=== PATIENT | male | born 1945 | race Caucasian/White ===

== ENCOUNTER 2020-07-22 19:35 | Inpatient (IN) | payer MEDICARE ==
[~2020-07-22] VITALS: Ht 172.7 cm; Wt 90.8 kg
[2020-07-22 19:35] VITALS: BP 155/103
--- NOTE | 2020-07-22 19:35 | NUR ---
ED Nurse Note: Pt HAYLEY RAAngela from a [facility] home c/o lower back pain. Per pt, he fell on his back 3-4 days ago. Pt AAOx3, verbally responsive. No SOB, on room air. Afebrile. VSS. ERPA at bedside.
--- NOTE | 2020-07-22 20:06 | NUR ---
ED Nurse Note: Pt was taken to CT.
--- NOTE | 2020-07-22 20:15 | NUR ---
ED Nurse Note: Pt returned from CT.
--- NOTE | 2020-07-22 20:36 | Diagnostic Imaging Report ---
EXAM: CT Cervical Spine Without Intravenous Contrast CLINICAL HISTORY: TRAUMA TECHNIQUE: Axial computed tomography images of the cervical spine without intravenous contrast. CTDI is 30.4 mGy and DLP is 797.3 mGy-cm. One or more of the following dose reduction techniques were used: automated exposure control, adjustment of the mA and/or kV according to patient size, use of iterative reconstruction technique. COMPARISON: None. FINDINGS: Vertebrae: Multilevel bridging prominent osteophytosis noted anteriorly throughout the cervical spine. Normal alignment. No acute fracture. Discs/spinal canal/neural foramina: Multilevel disc degenerative disease. No spinal canal stenosis. Soft tissues: Unremarkable. IMPRESSION: 1. No acute fracture or subluxation. 2. Underlying degenerative disease of the cervical spine/DISH as described above.
--- NOTE | 2020-07-22 20:45 | NUR ---
ED Nurse Note: IV line established. Blood and urine specimen collected and sent to lab.
--- NOTE | 2020-07-22 20:54 | Diagnostic Imaging Report ---
EXAM: CT Abdomen and Pelvis Without Intravenous Contrast CLINICAL HISTORY: TRAUMA TECHNIQUE: Axial computed tomography images of the abdomen and pelvis without intravenous contrast. CTDI is 11.5 mGy and DLP is 813 mGy-cm. One or more of the following dose reduction techniques were used: automated exposure control, adjustment of the mA and/or kV according to patient size, use of iterative reconstruction technique. COMPARISON: None. FINDINGS: Lung bases: Left lower lobe and lingular atelectasis. Heart: Cardiomegaly with coronary artery calcifications. ABDOMEN: Liver: Unremarkable. Gallbladder and bile ducts: Unremarkable. No calcified stones. No ductal dilation. Pancreas: Unremarkable. No ductal dilation. Spleen: Unremarkable. No splenomegaly. Adrenals: Unremarkable. No mass. Kidneys and ureters: Diffuse fatty liver. Right perinephric stranding. The left upper renal pole cyst measuring 2.5 x 2.4 cm. Left perinephric stranding. No obstructing stones. No hydronephrosis. Stomach and bowel: Postoperative changes at the level of the sigmoid. No obstruction. No mucosal thickening. PELVIS: Appendix: Decompressed stomach with no hiatal hernia. Normal appendix. Nonspecific fecal debris within the colon. Bladder: Thickening of urinary bladder wall which may be due to incomplete distention, differential diagnosis including cystitis and partial outlet obstruction. No stones. Reproductive: Prostate enlargement. ABDOMEN and PELVIS: Intraperitoneal space: Unremarkable. No free air. No significant fluid collection. Bones/joints: Multilevel disc degenerative disease throughout the lumbar spine. Mild compression fracture of L3 vertebral body, exact age indeterminate and likely old given morphology. No dislocation. Soft tissues: Unremarkable. Vasculature: Calcified atherosclerotic disease of aorta with no aneurysm. Lymph nodes: Unremarkable. No enlarged lymph nodes. IMPRESSION: 1. Diffuse fatty liver. Left-sided renal cyst as described, remainder of abdominal viscera unremarkable. 2. No acute appendicitis or bowel obstruction.
[2020-07-22 21:00] VITALS: BP 145/92
--- NOTE | 2020-07-22 21:00 | Diagnostic Imaging Report ---
EXAM: CT Thoracic Spine Without Intravenous Contrast CLINICAL HISTORY: TRAUMA TECHNIQUE: Axial computed tomography images of the thoracic spine without intravenous contrast. CTDI is 11.5 mGy and DLP is 813 mGy-cm. One or more of the following dose reduction techniques were used: automated exposure control, adjustment of the mA and/or kV according to patient size, use of iterative reconstruction technique. COMPARISON: None. FINDINGS: Vertebrae: Wedging of T7 and T8 vertebral bodies consistent with mild compression fracture, exact age indeterminate. No distinct signs to suggest acute component. Normal alignment. Discs/spinal canal/neural foramina: Multilevel disc degenerative disease of the spine. No spinal canal stenosis. Soft tissues: Unremarkable. IMPRESSION: 1. Mild wedging of the T7 and T8 vertebral bodies suggestive of likely old compression fractures although exact age is indeterminate. Clinical correlation recommended or comparison to prior films if made available. 2. Underlying degenerative disease. No subluxation.
--- NOTE | 2020-07-22 21:03 | Diagnostic Imaging Report ---
EXAM: CT Lumbar Spine Without Intravenous Contrast CLINICAL HISTORY: TRAUMA TECHNIQUE: Axial computed tomography images of the lumbar spine without intravenous contrast. CTDI is 11.5 mGy and DLP is 813 mGy-cm. One or more of the following dose reduction techniques were used: automated exposure control, adjustment of the mA and/or kV according to patient size, use of iterative reconstruction technique. COMPARISON: None. FINDINGS: Vertebrae: There is mild wedging of L3 vertebral body consistent with compression fracture. No distinct signs of acute fracture demonstrated. Multilevel degenerative disease throughout the lumbar spine with endplate spondylosis. No pars defect. Normal alignment. Discs/spinal canal/neural foramina: No acute findings. No spinal canal stenosis. Soft tissues: Unremarkable. IMPRESSION: 1. Mild compression fracture of L3, difficult to accurately assess the age although suggested to be old given morphology. Comparison to prior films if made available recommended. Otherwise, this may be more adequately assessed with bone scan or MRI. 2. Degenerative disease with no other sites suspicious for fracture. No spondylolisthesis or pars defect.
[2020-07-22 21:12] LABS: CALCIUM 8.3 MG/DL (8.5-10.1); CREATININE 1.4 MG/DL (0.55-1.30); POTASSIUM 3.9 MMOL/L (3.5-5.1)
[2020-07-22 21:17] LABS: HEMATOCRIT 43.5 % (42.0-52.0); HEMOGLOBIN 15.5 G/DL (14.2-18.0); MEAN CORPUSCULAR VOLUME 93 FL (80-99); PLATELET COUNT 133 K/UL (150-450); RED BLOOD COUNT 4.68 M/UL (4.70-6.10); RED CELL DISTRIBUTION WIDTH 12.1 % (11.6-14.8)
[2020-07-22 21:18] LABS: INR 1.1 (0.9-1.1)
[2020-07-22 21:22] LABS: ALBUMIN 3.9 G/DL (3.4-5.0); ALBUMIN/GLOBULIN RATIO 1.2 (1.0-2.7); BILIRUBIN,TOTAL 1.1 MG/DL (0.2-1.0)
--- NOTE | 2020-07-22 21:24 | Emergency Room Report ---
History of Present Illness General Chief Complaint: Back Pain-No Injury Source: Patient, EMS Present Illness HPI 74-year-old male with no known past medical history brought in by paramedics from home due to fall and injury. Patient reported he was in the shower as he fell and also had a voided cabinet fall on hand. Patient does not make a lot of sense at this time and appears to have an underlying dementia. 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 Denies any pain at this time reports that he only has neck and lower back pain when moving around. Denies any saddle paresthesia, tingling numbness. Denies urinary or bowel incontinence. Has not taken medication for symptom relief. Patient is a poor historian. Allergies: Coded Allergies: No Known Allergies (Unverified , 07/22/20) COVID-19 Screening COVID-19 risk:Contact w/high r: No Has patient experienced morataya: No COVID-19 Testing performed PANTOGRAPH MACHINE SET UP OPERATOR: No Patient History Past Medical History: unable to obtain Past Surgical History: none Pertinent Family History: none Immunizations: UTD Reviewed Nursing Documentation: PMH: Agreed; PSxH: Agreed Nursing Documentation-PMH Past Medical History: No Stated History Review of Systems All Other Systems: negative except mentioned in HPI Physical Exam Vital Signs Date Time Temp Pulse Resp B/P (MAP) Pulse Ox O2 Delivery O2 Flow Rate FiO2 07/22/20 19:29 98.2 75 18 155/103 (120) 99 Room Air Sp02 EP Interpretation: reviewed, normal General Appearance: alert, non-toxic Head: normocephalic, atraumatic Eyes: normal eye exam, PERRL, EOMI, lids + conjunctiva normal, no hyphema, no racoon eyes ENT: normal ENT inspection, TMs + canals normal, oropharynx normal, no harris signs Neck: normal inspection, supple/symm/no masses, trach midline, no bony tend, full range of motion without pain Respiratory: effort normal, no retractions, clear to auscultation, chest symmetrical, palpation of chest normal, speaking in full sentences Cardiovascular: regular rate, rhythm, no JVD Cardiovascular #2: 2+ carotid (R), 2+ carotid (L), 2+ radial (R), 2+ radial (L), 2+ dorsalis pedis (R), 2+ dorsalis pedis (L) Gastrointestinal: normal inspection, non-tender, non-distended, no rebound/guarding, normal bowel sounds Musculoskeletal: other - Unable to assess as patient will not allow physical exam of back Neurologic: normal inspection, sensory intact Psychiatric: normal inspection, memory normal, mood normal, no suicidal/homicidal ideation Medical Decision Making PA Attestation All my diagnosis and treatment plans were reviewed ad discussed with my supervising physician Dr. Valle Diagnostic Impression: Primary Impression: Cervical strain Additional Impressions: Head contusion Compression fracture of L3 vertebra ER Course 74-year-old male with no known past medical history brought in by paramedics from home due to fall and injury. Patient reported he was in the shower as he fell and also had a voided cabinet fall on hand. Patient does not make a lot of sense at this time and appears to have an underlying dementia. 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 Denies any pain at this time reports that he only has neck and lower back pain when moving around. Denies any saddle paresthesia, tingling numbness. Denies urinary or bowel incontinence.. Has not taken medication for symptom relief. Patient is a poor historian. Ddx considered but are not limited to: cerebral hematoma, concussion, skull fracture, head contusion, cervical fracture versus sprain versus strain, lumbar sprain versus strain versus fracture Vital signs: are WNL, pt. is afebrile H&PE are most consistent with: Head contusion, cervical sprain, lumbar compression fx ORDERS: head CT no contrast, C-spine CT no contrast, L-spine and T-spine CT no contrast, CT abdomen pelvis no contrast, CBC, CMP, UA, PT and PTT Patient was evaluated in the context of the global COVID-19 pandemic, which necessitated consideration that the patient might be at risk for infection with the SARS-COV-2 virus that causes COVID-19. Institutional protocols and algorithms that pertain to the evaluation of patients at risk for COVID-19 are in a state of rapid change based on information relieved by multiple regulatory bodies including the CDC and the federal and state organizations. These policies and algorithms were followed during the patient's care in the ED. ED INTERVENTIONS: Patient did not want any pain medication at this time is reported that he does not have any pain Patient was admitted with diagnosis of spinal fracture, intractable pain to under supervision of DrMario: Leonard pt stable at time of admission CT/MRI/US Diagnostic Results CT/MRI/US Diagnostic Results #1: Imaging Test Ordered: Head CT no contrast Impression EXAM: CT Head Without Intravenous Contrast CLINICAL HISTORY: TRAUMA TECHNIQUE: Axial computed tomography images of the head/brain without intravenous contrast. CTDI is 53.4 mGy and DLP is 1152.4 mGy-cm. One or more of the following dose reduction techniques were used: automated exposure control, adjustment of the mA and/or kV according to patient size, use of iterative reconstruction technique. COMPARISON: None. FINDINGS: Brain: Mild to moderate generalized brain atrophy. Decreased attenuation within the deep white matter suggestive of microangiopathic white matter disease. No hemorrhage. Ventricles: Unremarkable. No ventriculomegaly. Bones/joints: Unremarkable. No acute fracture. Soft tissues: Unremarkable. Sinuses: Unremarkable as visualized. No acute sinusitis. Mastoid air cells: Unremarkable as visualized. No mastoid effusion. IMPRESSION: Chronic changes as described. No acute intracranial hemorrhage or space- occupying lesion. CT/MRI/US Diagnostic Results #2: Imaging Test Ordered: CT C-spine no contrast Impression COMPARISON: None. FINDINGS: Vertebrae: Multilevel bridging prominent osteophytosis noted anteriorly throughout the cervical spine. Normal alignment. No acute fracture. Discs/spinal canal/neural foramina: Multilevel disc degenerative disease. No spinal canal stenosis. Soft tissues: Unremarkable. IMPRESSION: 1. No acute fracture or subluxation. 2. Underlying degenerative disease of the cervical spine/DISH as described above. CT/MRI/US Diagnostic Results #3: Imaging Test Ordered: CT T-spine noncontrast Impression FINDINGS: Vertebrae: Wedging of T7 and T8 vertebral bodies consistent with mild compression fracture, exact age indeterminate. No distinct signs to suggest acute component. Normal alignment. Discs/spinal canal/neural foramina: Multilevel disc degenerative disease of the spine. No spinal canal stenosis. Soft tissues: Unremarkable. IMPRESSION: 1. Mild wedging of the T7 and T8 vertebral bodies suggestive of likely old compression fractures although exact age is indeterminate. Clinical correlation recommended or comparison to prior films if made available. 2. Underlying degenerative disease. No subluxation. CT/MRI/US Diagnostic Results #4: Imaging Test Ordered: CT L-spine no contrast Impression COMPARISON: None. FINDINGS: Vertebrae: There is mild wedging of L3 vertebral body consistent with compressio n fracture. No distinct signs of acute fracture demonstrated. Multilevel degenerative disease throughout the lumbar spine with endplate spondylosis. No pars defect. Normal alignment. Discs/spinal canal/neural foramina: No acute findings. No spinal canal stenosis. Soft tissues: Unremarkable. IMPRESSION: 1. Mild compression fracture of L3, difficult to accurately assess the age alth ough suggested to be old given morphology. Comparison to prior films if made available recommended. Otherwise, this may be more adequately assessed with bone scan or MRI. 2. Degenerative disease with no other sites suspicious for fracture. No spondylolisthesis or pars defect. CT/MRI/US Diagnostic Results #5: Imaging Test Ordered: CT abdomen pelvis noncontrast Impression FINDINGS: Lung bases: Left lower lobe and lingular atelectasis. Heart: Cardiomegaly with coronary artery calcifications. ABDOMEN: Liver: Unremarkable. Gallbladder and bile ducts: Unremarkable. No calcified stones. No ductal dilation. Pancreas: Unremarkable. No ductal dilation. Spleen: Unremarkable. No splenomegaly. Adrenals: Unremarkable. No mass. Kidneys and ureters: Diffuse fatty liver. Right perinephric stranding. The left upper renal pole cyst measuring 2.5 x 2.4 cm. Left perinephric stranding. No obstructing stones. No hydronephrosis. Stomach and bowel: Postoperative changes at the level of the sigmoid. No obstruction. No mucosal thickening. PELVIS: Appendix: Decompressed stomach with no hiatal hernia. Normal appendix. Nonspecific fecal debris within the colon. Bladder: Thickening of urinary bladder wall which may be due to incomplete di stention, differential diagnosis including cystitis and partial outlet obstruction. No stones. Reproductive: Prostate enlargement. ABDOMEN and PELVIS: Intraperitoneal space: Unremarkable. No free air. No significant fluid collection. Bones/joints: Multilevel disc degenerative disease throughout the lumbar spine. Mild compression fracture of L3 vertebral body, exact age indeterminate and likely old given morphology. No dislocation. Soft tissues: Unremarkable. Vasculature: Calcified atherosclerotic disease of aorta with no aneurysm. Lymph nodes: Unremarkable. No enlarged lymph nodes. IMPRESSION: 1. Diffuse fatty liver. Left-sided renal cyst as described, remainder of abdominal viscera unremarkable. 2. No acute appendicitis or bowel obstruction. Last Vital Signs Date Time Temp Pulse Resp B/P (MAP) Pulse Ox O2 Delivery O2 Flow Rate FiO2 07/22/20 19:35 98.2 75 18 155/103 99 Room Air Reji Montague Jul 22, 2020 21:24
--- NOTE | 2020-07-22 21:34 | Diagnostic Imaging Report ---
EXAM: CT Head Without Intravenous Contrast CLINICAL HISTORY: TRAUMA TECHNIQUE: Axial computed tomography images of the head/brain without intravenous contrast. CTDI is 53.4 mGy and DLP is 1152.4 mGy-cm. One or more of the following dose reduction techniques were used: automated exposure control, adjustment of the mA and/or kV according to patient size, use of iterative reconstruction technique. COMPARISON: None. FINDINGS: Brain: Mild to moderate generalized brain atrophy. Decreased attenuation within the deep white matter suggestive of microangiopathic white matter disease. No hemorrhage. Ventricles: Unremarkable. No ventriculomegaly. Bones/joints: Unremarkable. No acute fracture. Soft tissues: Unremarkable. Sinuses: Unremarkable as visualized. No acute sinusitis. Mastoid air cells: Unremarkable as visualized. No mastoid effusion. IMPRESSION: Chronic changes as described. No acute intracranial hemorrhage or space-occupying lesion.
[2020-07-22 21:37] LABS: BILIRUBIN,DIRECT 0.3 MG/DL (0.0-0.3)
[2020-07-22 22:18] LABS: APPEARANCE,URINE CLOUDY; BILIRUBIN, URINE NEGATIVE (NEGATIVE); COLOR,URINE PALE YELLOW; GLUCOSE, URINE (UA) NEGATIVE (NEGATIVE); KETONES,URINE 2+ (NEGATIVE); LEUKOCYTE ESTERASE ,URINE 2+ (NEGATIVE); NITRITE,URINE NEGATIVE (NEGATIVE); PH,URINE 8 (4.5-8.0); PROTEIN,URINE 2+ (NEGATIVE); UROBILINOGEN,URINE NORMAL MG/DL (0.0-1.0)
[2020-07-22] MEDS ORDERED: Miralax 17gm pkt ORAL PRN (22:45)
--- NOTE | 2020-07-22 22:46 | NUR ---
ED Nurse Note: Report given to Sree GREENWOOD.
[2020-07-22 22:53] VITALS: BP 147/88
--- NOTE | 2020-07-22 22:54 | NUR ---
TRANSFER TO FLOOR: Patient transferred to Med surg. Report given to Sree GREENWOOD. Pt AAOx3, verbally responsive but is forgetful. No SOB, on room air. IV line on left AC 20g patent and intact. Pt is not taking any meds at home. Skin is intact. All belongings sent with the patient.
--- NOTE | 2020-07-22 23:10 | NUR ---
NURSE NOTES: Patient admitted to the floor aaox2; talkative; forgetful and confused. Ambulatory but with steady gait. Oriented to new room and unit, call light provided and educated how to use it; patient needs reinforcement naturalization examiner light and falls precautions. Urinal provided for patient and educated also on how to use it. [employer] and Charge Nurse made aware of high fall risk status of patient. Per patient, he does not take any home medication and that he does no have any past medical history. Admission orders from Dr. Byrne noted and will carry out. Addendum: 07/23/20 at 0028 by CHRISTINE BOURNE RN RN unable to verify home medications and past medical history. Called [facility] at [phone], no answer. No next of kin provided in the face sheet also. Addendum: 07/23/20 at 0330 by CHRISTINE BOURNE RN RN Ambulatory with UNSTEADY gait*
[2020-07-22 23:30] VITALS: BP 149/81
[2020-07-23 04:00] VITALS: BP 148/77
--- NOTE | 2020-07-23 06:24 | NUR ---
NURSE NOTES: Patient refused to have blood drawn at this time. Will re-attempt at a later time.
--- NOTE | 2020-07-23 07:32 | NUR ---
NURSE HAND-OFF: Important Events on Shift:[new admit; high fall risk] Patient Status: [sleeping] Diet: [Regular] Pending Orders: [] Pending Results/Labs:[] Pending MD notification:[] Latest Vital Signs: Temperature 99.0 , Pulse 66 , B/P 148 /77 , Respiratory Rate 20 , O2 SAT 98 , Room Air, O2 Flow Rate . Vital Sign Comment: [] Latest Robertson Fall Score: 85 Fall Risk: High Risk Safety Measures: Call light Within Reach, Bed Alarm Zone 2, Side Rails Side Rails x3, Bed position Low and Locked. Fall Precautions: Yellow Socks Yellow Gown Door Sign Patient Fall Education Report given to [Lakshmi Bhardwaj RN].
--- NOTE | 2020-07-23 07:37 | NUR ---
NURSE NOTES: Report received from KRYSTYNA Balbuena. Patient awake in bed, alert and oriented x 2, no SOB, bed in lowest position with breaks engaged and alarm on, denies any pain at this time, on room air, IV line intact on left AC, will continue to monitor and proceed with plan of care, call light within reach.
[2020-07-23 08:00] VITALS: BP 139/83
[2020-07-23] MEDS: Heparin 5000 units/ml inj SUBQ SCH ×2 (08:36→20:42)
[2020-07-23 08:57] LABS: HEMATOCRIT 44.4 % (42.0-52.0); HEMOGLOBIN 15.2 G/DL (14.2-18.0); MEAN CORPUSCULAR VOLUME 95 FL (80-99); PLATELET COUNT 136 K/UL (150-450); RED CELL DISTRIBUTION WIDTH 12.4 % (11.6-14.8); WHITE BLOOD COUNT 5.9 K/UL (4.8-10.8)
--- NOTE | 2020-07-23 09:05 | NUR ---
PT EVALUATION NOTE Patient seen for initial evaluation. Patient presents with generalized weakness and impaired balance which affects patient's ability to perform mobility tasks safely. Patient required min/mod assist for bed mobility. Patient able to stand with a FWW with min assist, and to take several small sideways steps with the FWW. Patient unstable in standing and is at high risk for falls. Patient will benefit from skilled inpatient PT intervention to increase strength and postural stability for improved level of functional mobility and safety. Recommend discharge to SNF for continued rehab as patient lives alone and is a fall risk. Recommend FWW for transfers and ambulation. Addendum: 07/23/20 at 1256 by BETTYE QUEVEDO PT Amended: Links added.
[2020-07-23 09:29] LABS: ALBUMIN 3.8 G/DL (3.4-5.0); ALBUMIN/GLOBULIN RATIO 0.9 (1.0-2.7); BILIRUBIN,TOTAL 1.1 MG/DL (0.2-1.0); CALCIUM 8.5 MG/DL (8.5-10.1); CREATININE 1.4 MG/DL (0.55-1.30); POTASSIUM 3.8 MMOL/L (3.5-5.1)
[2020-07-23 09:31] LABS: BILIRUBIN,DIRECT 0.3 MG/DL (0.0-0.3)
[2020-07-23] MEDS: LORazepam Inj 2mg/ml 1ml IV PRN ×2 (10:46→23:01)
--- NOTE | 2020-07-23 10:50 | NUR ---
DOCTOR OF PHARMACY NOTE SW attempted to meet w/ pt for home safety evaluation. Pt presents as A&O 2x, and forgetful. Pt is from [facility] [address], [place] [address]. Pt does not have any children. PT reports having estranged siblings that he does not have their contact information. PT was unable to provide detailed hx of fall incident, his independency with ADLs and IADLs. It is unclear if it is due to hearing or memory impairment. SW needed to redirect pt frequently. Pt made random statement during assessment, stating "I need to give thousand dollars to my girlfriend or my brother or sister" and "I want to have dogs" Pt reports being ambulatory w/o DMEs. Recommending PT to evaluate pt's mobility. Per charge nurse, pt's neighbor, Lizeth Gonzales [phone] called to share her concern. SW left a vm to Lizeth for call back.
[2020-07-23 12:00] VITALS: BP 129/88
--- NOTE | 2020-07-23 12:14 | NUR ---
CHIEF SCHOOL FINANCE OFFICER NOTE SW spoke w/ pt's neighbors, Lizeth and Jim #[phone] that Lizeth filed APS report for self-neglect. Per Lizeth, the assigned APS SW is [place] [phone]. Lizeth states pt does not receive meal service from the [facility]. Jmi has not seen pt for 3 months, where they share a kitchen. Lizeth witnessed pt's room was in unhealthy condition and had no food in the refrigerator. Possible SNF placement if he needs skilled needs, otherwise pt may need service arrangement prior to returning home. YASMINE will discuss w/ the team.
[2020-07-23] MEDS ORDERED: Morphine Sulfate 2mg/ml Inj(IV/IM USE ONLY) IVP PRN (14:00)
--- NOTE | 2020-07-23 14:03 | Consultation ---
History of Present Illness General Date patient seen: Jul 23, 2020 Chief Complaint: Back Pain-No Injury Present Illness HPI 74-year-old male with no known past medical history brought in by paramedics from home due to fall and injury. Patient reports that he has a social worker aide at home. Denies any pain at this time reports that he only has neck and lower back pain when moving around. Denies urinary or bowel incontinence. Pt seems to be confused and not able to take care of himself. Allergies: Coded Allergies: No Known Allergies (Unverified , 07/22/20) Medication History No Active Prescriptions or Reported Meds Patient History Healthcare decision maker Resuscitation status Advanced Directive on File Past Medical/Surgical History Past Medical/Surgical History: (1) No significant past medical history Review of Systems All Other Systems: negative except mentioned in HPI Physical Exam General Appearance: WD/WN, no apparent distress, lethargic Lines, tubes and drains: peripheral HEENT: normocephalic, atraumatic, mucous membranes moist Neck: non-tender, normal alignment, supple, abnormal alignment Respiratory/Chest: chest wall non-tender, lungs clear, no respiratory distress Cardiovascular/Chest: normal peripheral pulses, normal rate, regular rhythm Abdomen: normal bowel sounds Last 24 Hour Vital Signs Date Time Temp Pulse Resp B/P (MAP) Pulse Ox O2 Delivery O2 Flow Rate FiO2 07/23/20 12:00 98.6 66 18 129/88 (102) 98 07/23/20 11:16 77 18 115/71 95 07/23/20 10:46 77 18 115/71 95 07/23/20 09:00 Room Air 07/23/20 08:00 98.0 73 19 139/83 (101) 96 07/23/20 04:00 99.0 66 20 148/77 (100) 98 07/22/20 23:39 Room Air 07/22/20 23:30 99.1 64 18 149/81 (103) 96 07/22/20 22:54 98.2 73 16 147/88 97 Room Air 07/22/20 22:53 98.2 73 16 147/88 97 Room Air 07/22/20 21:00 98.2 78 16 145/92 95 Room Air 07/22/20 19:35 98.2 75 18 155/103 99 Room Air 07/22/20 19:29 98.2 75 18 155/103 (120) 99 Room Air Intake and Output 07/22/20 07/23/20 19:00 07:00 Intake Total 100 ml Balance 100 ml Intake Oral 100 ml # Voids 3 Laboratory Tests Test 07/22/20 20:45 07/23/20 08:15 White Blood Count 6.0 K/UL (4.8-10.8) 5.9 K/UL (4.8-10.8) Red Blood Count 4.68 M/UL (4.70-6.10) L 4.70 M/UL (4.70-6.10) Hemoglobin 15.5 G/DL (14.2-18.0) 15.2 G/DL (14.2-18.0) Hematocrit 43.5 % (42.0-52.0) 44.4 % (42.0-52.0) Mean Corpuscular Volume 93 FL (80-99) 95 FL (80-99) Mean Corpuscular Hemoglobin 33.1 PG (27.0-31.0) H 32.3 PG (27.0-31.0) H Mean Corpuscular Hemoglobin Concent 35.7 G/DL (32.0-36.0) 34.1 G/DL (32.0-36.0) Red Cell Distribution Width 12.1 % (11.6-14.8) 12.4 % (11.6-14.8) Platelet Count 133 K/UL (150-450) L 136 K/UL (150-450) L Mean Platelet Volume 8.7 FL (6.5-10.1) 7.9 FL (6.5-10.1) Neutrophils (%) (Auto) % (45.0-75.0) % (45.0-75.0) Lymphocytes (%) (Auto) % (20.0-45.0) % (20.0-45.0) Monocytes (%) (Auto) % (1.0-10.0) % (1.0-10.0) Eosinophils (%) (Auto) % (0.0-3.0) % (0.0-3.0) Basophils (%) (Auto) % (0.0-2.0) % (0.0-2.0) Differential Total Cells Counted 100 100 Neutrophils % (Manual) 64 % (45-75) 66 % (45-75) Lymphocytes % (Manual) 12 % (20-45) L 18 % (20-45) L Monocytes % (Manual) 19 % (1-10) H 13 % (1-10) H Eosinophils % (Manual) 1 % (0-3) 3 % (0-3) Basophils % (Manual) 0 % (0-2) 0 % (0-2) Band Neutrophils 4 % (0-8) 0 % (0-8) Platelet Estimate Decreased L Decreased L Platelet Morphology Normal Normal Red Blood Cell Morphology Normal Normal Prothrombin Time 12.0 SEC (9.30-11.50) H Prothromb Time International Ratio 1.1 (0.9-1.1) Activated Partial Thromboplast Time 32 SEC (23-33) Urine Color Pale yellow Urine Appearance Cloudy Urine pH 8 (4.5-8.0) Urine Specific [place] 1.010 (1.005-1.035) Urine Protein 2+ (NEGATIVE) H Urine Glucose (UA) Negative (NEGATIVE) Urine Ketones 2+ (NEGATIVE) H Urine Blood 2+ (NEGATIVE) H Urine Nitrite Negative (NEGATIVE) Urine Bilirubin Negative (NEGATIVE) Urine Urobilinogen Normal MG/DL (0.0-1.0) Urine Leukocyte Esterase 2+ (NEGATIVE) H Urine RBC 0-2 /HPF (0 - 0) H Urine WBC Tntc /HPF (0 - 0) H Urine Squamous Epithelial Cells None /LPF (NONE/OCC) Urine Bacteria Occasional /HPF (NONE) Sodium Level 135 MMOL/L (136-145) L 135 MMOL/L (136-145) L Potassium Level 3.9 MMOL/L (3.5-5.1) 3.8 MMOL/L (3.5-5.1) Chloride Level 101 MMOL/L (98-107) 102 MMOL/L (98-107) Carbon Dioxide Level 26 MMOL/L (21-32) 24 MMOL/L (21-32) Anion Gap 8 mmol/L (5-15) 9 mmol/L (5-15) Blood Urea Nitrogen 10 mg/dL (7-18) 12 mg/dL (7-18) Creatinine 1.4 MG/DL (0.55-1.30) H 1.4 MG/DL (0.55-1.30) H Estimat Glomerular Filtration Rate 49.7 mL/min (>60) 49.7 mL/min (>60) Glucose Level 116 MG/DL (74-106) H 103 MG/DL (74-106) Calcium Level 8.3 MG/DL (8.5-10.1) L 8.5 MG/DL (8.5-10.1) Total Bilirubin 1.1 MG/DL (0.2-1.0) H 1.1 MG/DL (0.2-1.0) H Direct Bilirubin 0.3 MG/DL (0.0-0.3) 0.3 MG/DL (0.0-0.3) Aspartate Amino Transf (AST/SGOT) 32 U/L (15-37) 30 U/L (15-37) Alanine Aminotransferase (ALT/SGPT) 15 U/L (12-78) 22 U/L (12-78) Alkaline Phosphatase 66 U/L (46-116) 65 U/L (46-116) Total Protein 7.1 G/DL (6.4-8.2) 7.8 G/DL (6.4-8.2) Albumin 3.9 G/DL (3.4-5.0) 3.8 G/DL (3.4-5.0) Globulin 3.2 g/dL 4.0 g/dL Albumin/Globulin Ratio 1.2 (1.0-2.7) 0.9 (1.0-2.7) L Thyroid Stimulating Hormone (TSH) 1.486 uiU/mL (0.358-3.740) Height (Feet): 5 Height (Inches): 8.00 Weight (Pounds): 210 Medications Current Medications Medications (Trade) Dose Ordered Sig/Fabrizio Route PRN Reason Start Time Stop Time Status Last Admin Dose Admin Acetaminophen (Tylenol) 650 mg Q4H PRN ORAL fever 07/22/20 22:45 08/21/20 22:44 Dextrose (Dextrose 50%) 25 ml Q30M PRN IV Hypoglycemia 07/22/20 22:45 10/20/20 22:44 Dextrose (Dextrose 50%) 50 ml Q30M PRN IV Hypoglycemia 07/22/20 22:45 10/20/20 22:44 Heparin Sodium (Porcine) (Heparin 5000 units/ml) 5,000 units EVERY 12 HOURS SUBQ 07/23/20 09:00 09/06/20 08:59 Lorazepam (Ativan 2mg/ml 1ml) 1 mg Q4H PRN IV For Anxiety 07/23/20 10:45 07/30/20 10:44 07/23/20 10:46 Ondansetron HCl (Zofran) 4 mg Q6H PRN IVP Nausea & Vomiting 07/22/20 22:45 08/21/20 22:44 Polyethylene Glycol (Miralax) 17 gm HSPRN PRN ORAL Constipation 07/22/20 22:45 08/21/20 22:44 Zolpidem Tartrate (Ambien) 5 mg HSPRN PRN ORAL Insomnia 07/22/20 22:45 07/29/20 22:44 Assessment/Plan Problem List: (1) Compression fracture of L3 vertebra ICD Codes: S32.030A - Wedge compression fracture of third lumbar vertebra, initial encounter for closed fracture SNOMED: 338863147 (2) Intractable pain ICD Codes: R52 - Pain, unspecified SNOMED: 95378787 (3) Social isolation ICD Codes: Z60.4 - Social exclusion and rejection SNOMED: 100563643 (4) Impaired mobility and ADLs ICD Codes: Z74.09 - Other reduced mobility; Z78.9 - Other specified health status SNOMED: 98646953, 484287406, 623005282 (5) No significant past medical history SNOMED: 095845458 Assessment/Plan: symptomatic treatment Pain management pt/ot social service consult dvt prophylaxis. Jaclyn Byrne MD Jul 23, 2020 14:03
--- NOTE | 2020-07-23 14:09 | NUR ---
FORM BUILDER NOTE SW received a consult to locate family. SW spoke w/ pt's neighbors Mervin earlier that pt does not have any family members. YASMINE attempted to call [employer] [phone]. The call was not answered and left a vm for call back.
[2020-07-23 14:29] LABS: CREATINE KINASE 366 U/L (26-308)
--- NOTE | 2020-07-23 14:49 | Consultation ---
History of Present Illness General Date patient seen: Jul 23, 2020 Chief Complaint: Back Pain-No Injury Present Illness HPI 74 y/o M with hx no known past medical hx presented to ED on 07/22/20 after a fall at home in the shower. has neck and lower back pain when moving. Denied urinary or bowel incontinence, numbness/tingling Allergies: Coded Allergies: No Known Allergies (Unverified , 07/22/20) Medication History No Active Prescriptions or Reported Meds Patient History Healthcare decision maker Resuscitation status Advanced Directive on File Patient History Narrative Pmhx: as above Shx: reviewed Fhx: non contributory Review of Systems All Other Systems: negative except mentioned in HPI Physical Exam Physical Exam Narrative General Appearance: alert, non-toxic Head: normocephalic, atraumatic Eyes: normal eye exam, PERRL, EOMI, lids + conjunctiva normal, no hyphema, no racoon eyes ENT: normal ENT inspection, TMs + canals normal, oropharynx normal, no harris signs Neck: normal inspection, supple/symm/no masses, trach midline, no bony tend, full range of motion without pain Respiratory: effort normal, no retractions, clear to auscultation, chest symmetrical, palpation of chest normal, speaking in full sentences Cardiovascular: regular rate, rhythm, no JVD Gastrointestinal: normal inspection, non-tender, non-distended, no rebound/guarding, normal bowel sounds Last 24 Hour Vital Signs Date Time Temp Pulse Resp B/P (MAP) Pulse Ox O2 Delivery O2 Flow Rate FiO2 07/23/20 12:00 98.6 66 18 129/88 (102) 98 07/23/20 11:16 77 18 115/71 95 07/23/20 10:46 77 18 115/71 95 07/23/20 09:00 Room Air 07/23/20 08:00 98.0 73 19 139/83 (101) 96 07/23/20 04:00 99.0 66 20 148/77 (100) 98 07/22/20 23:39 Room Air 07/22/20 23:30 99.1 64 18 149/81 (103) 96 07/22/20 22:54 98.2 73 16 147/88 97 Room Air 07/22/20 22:53 98.2 73 16 147/88 97 Room Air 10/22/20 21:00 98.2 78 16 145/92 95 Room Air 07/22/20 19:35 98.2 75 18 155/103 99 Room Air 07/22/20 19:29 98.2 75 18 155/103 (120) 99 Room Air Intake and Output 07/22/20 07/23/20 19:00 07:00 Intake Total 100 ml Balance 100 ml Intake Oral 100 ml # Voids 3 Laboratory Tests Test 07/22/20 20:45 07/23/20 08:15 White Blood Count 6.0 K/UL (4.8-10.8) 5.9 K/UL (4.8-10.8) Red Blood Count 4.68 M/UL (4.70-6.10) L 4.70 M/UL (4.70-6.10) Hemoglobin 15.5 G/DL (14.2-18.0) 15.2 G/DL (14.2-18.0) Hematocrit 43.5 % (42.0-52.0) 44.4 % (42.0-52.0) Mean Corpuscular Volume 93 FL (80-99) 95 FL (80-99) Mean Corpuscular Hemoglobin 33.1 PG (27.0-31.0) H 32.3 PG (27.0-31.0) H Mean Corpuscular Hemoglobin Concent 35.7 G/DL (32.0-36.0) 34.1 G/DL (32.0-36.0) Red Cell Distribution Width 12.1 % (11.6-14.8) 12.4 % (11.6-14.8) Platelet Count 133 K/UL (150-450) L 136 K/UL (150-450) L Mean Platelet Volume 8.7 FL (6.5-10.1) 7.9 FL (6.5-10.1) Neutrophils (%) (Auto) % (45.0-75.0) % (45.0-75.0) Lymphocytes (%) (Auto) % (20.0-45.0) % (20.0-45.0) Monocytes (%) (Auto) % (1.0-10.0) % (1.0-10.0) Eosinophils (%) (Auto) % (0.0-3.0) % (0.0-3.0) Basophils (%) (Auto) % (0.0-2.0) % (0.0-2.0) Differential Total Cells Counted 100 100 Neutrophils % (Manual) 64 % (45-75) 66 % (45-75) Lymphocytes % (Manual) 12 % (20-45) L 18 % (20-45) L Monocytes % (Manual) 19 % (1-10) H 13 % (1-10) H Eosinophils % (Manual) 1 % (0-3) 3 % (0-3) Basophils % (Manual) 0 % (0-2) 0 % (0-2) Band Neutrophils 4 % (0-8) 0 % (0-8) Platelet Estimate Decreased L Decreased L Platelet Morphology Normal Normal Red Blood Cell Morphology Normal Normal Prothrombin Time 12.0 SEC (9.30-11.50) H Prothromb Time International Ratio 1.1 (0.9-1.1) Activated Partial Thromboplast Time 32 SEC (23-33) Urine Color Pale yellow Urine Appearance Cloudy Urine pH 8 (4.5-8.0) Urine Specific [place] 1.010 (1.005-1.035) Urine Protein 2+ (NEGATIVE) H Urine Glucose (UA) Negative (NEGATIVE) Urine Ketones 2+ (NEGATIVE) H Urine Blood 2+ (NEGATIVE) H Urine Nitrite Negative (NEGATIVE) Urine Bilirubin Negative (NEGATIVE) Urine Urobilinogen Normal MG/DL (0.0-1.0) Urine Leukocyte Esterase 2+ (NEGATIVE) H Urine RBC 0-2 /HPF (0 - 0) H Urine WBC Tntc /HPF (0 - 0) H Urine Squamous Epithelial Cells None /LPF (NONE/OCC) Urine Bacteria Occasional /HPF (NONE) Sodium Level 135 MMOL/L (136-145) L 135 MMOL/L (136-145) L Potassium Level 3.9 MMOL/L (3.5-5.1) 3.8 MMOL/L (3.5-5.1) Chloride Level 101 MMOL/L (98-107) 102 MMOL/L (98-107) Carbon Dioxide Level 26 MMOL/L (21-32) 24 MMOL/L (21-32) Anion Gap 8 mmol/L (5-15) 9 mmol/L (5-15) Blood Urea Nitrogen 10 mg/dL (7-18) 12 mg/dL (7-18) Creatinine 1.4 MG/DL (0.55-1.30) H 1.4 MG/DL (0.55-1.30) H Estimat Glomerular Filtration Rate 49.7 mL/min (>60) 49.7 mL/min (>60) Glucose Level 116 MG/DL (74-106) H 103 MG/DL (74-106) Calcium Level 8.3 MG/DL (8.5-10.1) L 8.5 MG/DL (8.5-10.1) Total Bilirubin 1.1 MG/DL (0.2-1.0) H 1.1 MG/DL (0.2-1.0) H Direct Bilirubin 0.3 MG/DL (0.0-0.3) 0.3 MG/DL (0.0-0.3) Aspartate Amino Transf (AST/SGOT) 32 U/L (15-37) 30 U/L (15-37) Alanine Aminotransferase (ALT/SGPT) 15 U/L (12-78) 22 U/L (12-78) Alkaline Phosphatase 66 U/L (46-116) 65 U/L (46-116) Total Protein 7.1 G/DL (6.4-8.2) 7.8 G/DL (6.4-8.2) Albumin 3.9 G/DL (3.4-5.0) 3.8 G/DL (3.4-5.0) Globulin 3.2 g/dL 4.0 g/dL Albumin/Globulin Ratio 1.2 (1.0-2.7) 0.9 (1.0-2.7) L Uric Acid 6.2 MG/DL (2.6-7.2) Total Creatine Kinase 366 U/L (26-308) H Thyroid Stimulating Hormone (TSH) 1.486 uiU/mL (0.358-3.740) Height (Feet): 5 Height (Inches): 8.00 Weight (Pounds): 210 Medications Current Medications Medications (Trade) Dose Ordered Sig/Fabrizio Route PRN Reason Start Time Stop Time Status Last Admin Dose Admin Acetaminophen (Tylenol) 650 mg Q4H PRN ORAL fever 07/22/20 22:45 08/21/20 22:44 Ceftriaxone Sodium 1 gm/ Dextrose 55 ml @ 110 mls/hr Q24H IVPB 07/23/20 15:00 07/30/20 14:59 Dextrose (Dextrose 50%) 25 ml Q30M PRN IV Hypoglycemia 07/22/20 22:45 10/20/20 22:44 Dextrose (Dextrose 50%) 50 ml Q30M PRN IV Hypoglycemia 07/22/20 22:45 10/20/20 22:44 Heparin Sodium (Porcine) (Heparin 5000 units/ml) 5,000 units EVERY 12 HOURS SUBQ 07/23/20 09:00 09/06/20 08:59 Lorazepam (Ativan 2mg/ml 1ml) 1 mg Q4H PRN IV For Anxiety 07/23/20 10:45 07/30/20 10:44 07/23/20 10:46 Morphine Sulfate (Morphine Sulfate) 2 mg Q4H PRN IVP For Pain 07/23/20 14:00 07/30/20 13:59 Ondansetron HCl (Zofran) 4 mg Q6H PRN IVP Nausea & Vomiting 07/22/20 22:45 08/21/20 22:44 Polyethylene Glycol (Miralax) 17 gm HSPRN PRN ORAL Constipation 07/22/20 22:45 08/21/20 22:44 Zolpidem Tartrate (Ambien) 5 mg HSPRN PRN ORAL Insomnia 07/22/20 22:45 07/29/20 22:44 Assessment/Plan Assessment/Plan: Abx: Ceftriaxone 07/23- Assessment: Probable UTI -u/a wbc tntc, nit neg, leuk +2; ucx p Afebrile No leukocytosis SP mechanical fall Old compression fractures on imaging -CT head: no acute findings Plan: -Continue empiric Ceftriaxone #1 for now pending ucx -f/u cx -Monitor CBC/CMP, temperatures Thank you for consulting [facility]. Will continue to follow along with you. Discussed with Lindy Steiner M.D. Jul 23, 2020 14:49
--- NOTE | 2020-07-23 15:52 | NUR ---
CASE MANAGEMENT: INITIAL REVIEW 74 YO M BIBA FROM HOME CC: BACK PAIN PMHx: No Stated History SI:INTRACTABLE PAIN. SPINAL FX VS: T 98.2 HR 75 RR 18 B/P 155/103 SATS 99% ON RA LABS: NA 135 CR 1.4 GLU 116 CA 8.3 TBILI 1.1 IS: CEFTRIAXONE IV Q24H PATIENT ADMITTED TO MED/SURG 07/22/2020 @ 2205 DCP: HOME PLAN OF CARE: symptomatic treatment Pain management pt/ot social service consult
[2020-07-23 16:00] VITALS: BP 139/81
[2020-07-23] MEDS: cefTRIAXone 1 GM in D5W 55 ML IVPB SCH (16:00)
--- NOTE | 2020-07-23 17:19 | Diagnostic Imaging Report ---
Indication: Elevated creatinine Technique: US Renal Comp Comparison: None Findings: Kidneys demonstrate normal echogenicity. No hydronephrosis or sonographically appreciable renal stone. Approximately 2.2 cm cyst noted in the left kidney. Bladder unremarkable for degree of distention. Prostate is enlarged. Impression: * No hydronephrosis or sonographically appreciable renal stone * Renal echogenicity within normal limits * Prostatomegaly
--- NOTE | 2020-07-23 18:05 | History & Physical ---
History and Physical History & Physicial job # [id number] Andrés Rothman MD Jul 23, 2020 18:05
[2020-07-23 18:57] LABS: APPEARANCE,URINE CLEAR; BILIRUBIN, URINE NEGATIVE (NEGATIVE); GLUCOSE, URINE (UA) NEGATIVE (NEGATIVE); KETONES,URINE 3+ (NEGATIVE); LEUKOCYTE ESTERASE ,URINE 1+ (NEGATIVE); NITRITE,URINE NEGATIVE (NEGATIVE); PH,URINE 6 (4.5-8.0); PROTEIN,URINE 2+ (NEGATIVE); UROBILINOGEN,URINE NORMAL MG/DL (0.0-1.0)
[2020-07-23 19:06] LABS: COLOR,URINE YELLOW
--- NOTE | 2020-07-23 19:31 | NUR ---
NURSE HAND-OFF: Important Events on Shift:[IV ATB, fall risk precautions, urine collected for lab] Patient Status: [stable] Diet: [regular] Pending Orders: [] Pending Results/Labs:[] Pending MD notification:[] Latest Vital Signs: Temperature 99.1 , Pulse 64 , B/P 139 /81 , Respiratory Rate 18 , O2 SAT 96 , Room Air, O2 Flow Rate . Vital Sign Comment: [] Latest Robertson Fall Score: 70 Fall Risk: High Risk Safety Measures: Call light Within Reach, Bed Alarm Zone 2, Side Rails Side Rails x2, Bed position Low and Locked. Fall Precautions: Yellow Socks Yellow Gown Door Sign Patient Fall Education Report given to [KRYSTYNA Talbot].
--- NOTE | 2020-07-23 19:33 | NUR ---
NURSE NOTES: Received pt on the awake,A&Ox2, verbal and confused. No sob,pain,fever, and cough. Iv is intact and asymptomatic. bed is in he lowest position,locked,alarm on, and call light within reach. We will keep monitoring the pt.
[2020-07-23 20:00] VITALS: BP 128/75
--- NOTE | 2020-07-23 20:30 | History and Physical Report ---
DATE OF ADMISSION: 07/22/2020 CHIEF COMPLAINT: Fall with lower back injury. HISTORY OF PRESENT ILLNESS: This is a 73-year-old gentleman who denies any past medical history. The patient has a history of abdominal surgery in the past, who presented to the hospital from [facility] after he had a fall, sustaining back injury. The patient complained about severe lower back pain and worsening with movement. He denies any bowel or urine incontinence. The patient denies any chest pain or shortness of breath. Denies any dysuria, frequency, hematuria. The patient reports that he has a social problems specialist at home who has been helping him. Denies any saddle paresthesia or tingling numbness of lower extremity. Shortly after initial evaluation in the emergency department, the patient was confirmed to have a compression fracture of the lumbar spine and subsequently the patient was admitted to the hospital with a mechanical fall with lower back pain, possible due to the compression fracture of L3. PAST MEDICAL HISTORY/PAST SURGICAL HISTORY: As above, history of abdominal surgery in the past, unspecified. The patient is a poor historian and most of the history is taken from the ER chart and documentation. MEDICATIONS AT HOME: None. ALLERGIES: No known drug allergies. SOCIAL HISTORY: Denies any smoking, alcohol, or drugs at this time. FAMILY HISTORY: Noncontributory. REVIEW OF SYSTEMS: Mostly as above. Denies any dysuria, frequency, hematuria. Denies any hemoptysis or hematochezia. Denies any bright red blood per rectum. Complained about the lower back pain, worsening with movement. Denies any loss of consciousness. Denies any palpitation. Denies any suicidal or homicidal ideation. PHYSICAL EXAMINATION: VITAL SIGNS: On admission, temperature 98.2, pulse of 75, respirations 18, and blood pressure 155/103. GENERAL: The patient is awake, responsive, no acute distress. HEAD AND NECK: Pupils are equal and reactive to light. Extraocular movements intact. Neck was supple. No JVD. LUNGS: Good air entry. No wheezing or rales. HEART: S1, S2. Regular rhythm. Distant heart sounds. No murmur or gallops. ABDOMEN: Soft, nondistended, nontender. Morbidly obese. Midline surgical scar was noted from the umbilical area down to the suprapubic area. ABDOMEN: Morbidly obese. EXTREMITIES: No cyanosis, clubbing, edema. Varicose veins in bilateral lower extremities. BACK: Paraspinal tenderness in the lower back area. NEUROLOGIC: Cranial nerves II to XII grossly intact. The patient is moving all the extremities. Gait was not assessed due to the patient's status. LABORATORY DATA: Admission from the emergency department, sodium 135, potassium 3.9, chloride 101, bicarb 26, BUN 10, creatinine 1.4, and GFR is 49. Glucose is 116, calcium is 8.3, total bili of 1.1, AST of 32, ALT of 15, alkaline phosphatase 66, total CK is 366. TSH is 1.486. PT of 12, INR 1.1, and PTT of 32. Urinalysis, +2 ketone, +2 blood, negative nitrite, +2 leukocyte esterase, 0-2 rbc's, tainted wbc. WBC 6.0, hemoglobin 15, hematocrit 43, and platelets are 133,000. IMAGING STUDY: CT of the abdomen and pelvis noted the patient has diffuse fatty liver with the left side renal cysts, ventral hernia, no acute appendicitis or bowel obstruction. CT of cervical spine, no acute fracture or subluxation. Underlying degenerative changes of the cervical spine. Lumbar CT scan showed mild compression fracture of L3, difficult to accurately the age. The patient has degenerative disease of the spine. No spondylolisthesis. Thoracic CT, mild bridging of the T7-T8 vertebral body suggesting likely of compression fracture, although exact age is indeterminate. ASSESSMENT: 1. Status post fall with intractable back pain, possible due to compression fracture of the lumbar as well as thoracic spine. 2. UTI. 3. Chronic kidney disease. 4. Morbid obesity. PLAN: Admit the patient to medical floor. We will follow up with Dr. Byrne. Recommendation from Pulmonary. Infectious disease consultation with Dr. Virgen. Broad-spectrum antibiotic with Rocephin. Code status is full code. DVT prophylaxis, heparin subcu. Follow up with the renal ultrasound and pain control. Andrés Rothman M.D. DR: IRAJ JOB#: [id number] CC:
[2020-07-24 04:00] VITALS: BP 158/99
--- NOTE | 2020-07-24 07:20 | NUR ---
NURSE HAND-OFF: Important Events on Shift:na Patient Status: stable Diet: reg Pending Orders: Pending Results/Labs: Pending MD notification: Latest Vital Signs: Temperature 97.2 , Pulse 68 , B/P 158 /99 , Respiratory Rate 18 , O2 SAT 95 , Room Air, O2 Flow Rate . Vital Sign Comment: Latest Robertson Fall Score: 70 Fall Risk: High Risk Safety Measures: Call light Within Reach, Bed Alarm Zone 2, Side Rails Side Rails x2, Bed position Low and Locked. Fall Precautions: Yellow Socks Yellow Gown Door Sign Patient Fall Education Report given to KRYSTYNA Cross.
--- NOTE | 2020-07-24 07:46 | NUR ---
NURSE NOTES: Patient alert x2, confused; on room air, no sing of distress and shortness of breath; no sing of chest pain; IV LAC 20G flushes well; side rails up x2, bed at lowest position, breaks engaged, bed alarm on; call light within reach; will keep monitoring.
[2020-07-24 08:00] VITALS: BP 155/87
--- NOTE | 2020-07-24 08:31 | Infectious Diseases Prog Note ---
Assessment/Plan Abx: Ceftriaxone 07/23- Assessment: Probable UTI -u/a wbc tntc, nit neg, leuk +2; ucx +mixed organisms Afebrile No leukocytosis SP mechanical fall Old compression fractures on imaging -CT head: no acute findings Plan: -Continue empiric Ceftriaxone #2 for now pending ucx -f/u cx -Monitor CBC/CMP, temperatures Thank you for consulting [facility]. Will continue to follow along with you. Discussed with RN. Subjective Allergies: Coded Allergies: No Known Allergies (Unverified , 07/22/20) AF No leukocytosis NAD in bed UCx mixed organisms Objective Last 24 Hour Vital Signs Date Time Temp Pulse Resp B/P (MAP) Pulse Ox O2 Delivery O2 Flow Rate FiO2 07/24/20 04:00 97.2 68 18 158/99 (118) 95 07/23/20 23:31 72 18 125/73 97 07/23/20 23:01 77 18 128/75 96 07/23/20 20:38 Room Air 07/23/20 20:00 97.5 77 18 128/75 (92) 96 07/23/20 16:00 99.1 64 18 139/81 (100) 96 07/23/20 12:00 98.6 66 18 129/88 (102) 98 07/23/20 11:16 77 18 115/71 95 07/23/20 10:46 77 18 115/71 95 07/23/20 09:00 Room Air Height (Feet): 5 Height (Inches): 8.00 Weight (Pounds): 210 Gen: NAD HEENT: NCAT CV: RRR Pulm: CTAB Abd: Soft, NTND Ext: No c/c/e Neuro: Sleeping calmly Microbiology Date/Time Source Procedure Growth Status 07/22/20 20:45 Urine,Clean Catch Urine Culture - Final Mixed Gram Positive Organism Complete Laboratory Tests Test 07/23/20 18:00 Urine Color Yellow Urine Appearance Clear Urine pH 6 (4.5-8.0) Urine Specific [place] 1.015 (1.005-1.035) Urine Protein 2+ (NEGATIVE) H Urine Glucose (UA) Negative (NEGATIVE) Urine Ketones 3+ (NEGATIVE) H Urine Blood 2+ (NEGATIVE) H Urine Nitrite Negative (NEGATIVE) Urine Bilirubin Negative (NEGATIVE) Urine Urobilinogen Normal MG/DL (0.0-1.0) Urine Leukocyte Esterase 1+ (NEGATIVE) H Urine RBC 2-4 /HPF (0 - 0) H Urine WBC 5-10 /HPF (0 - 0) H Urine Squamous Epithelial Cells Occasional /LPF Urine Bacteria Few /HPF (NONE) Urine Eosinophils None seen (NONE SEEN) Urine Osmolality 707 mOsm/kg (429-449) H Urine Random Creatinine Pending Urine Random Microalbumin Pending Urine Random Sodium 149 mmol/L (20-110) H Urine Microalbumin/Creatinine Ratio Pending Current Medications Medications (Trade) Dose Ordered Sig/Fabrizio Route PRN Reason Start Time Stop Time Status Last Admin Dose Admin Acetaminophen (Tylenol) 650 mg Q4H PRN ORAL fever 07/22/20 22:45 08/21/20 22:44 Ceftriaxone Sodium 1 gm/ Dextrose 55 ml @ 110 mls/hr Q24H IVPB 07/23/20 15:00 07/30/20 14:59 07/23/20 16:00 Dextrose (Dextrose 50%) 25 ml Q30M PRN IV Hypoglycemia 07/22/20 22:45 10/20/20 22:44 Dextrose (Dextrose 50%) 50 ml Q30M PRN IV Hypoglycemia 07/22/20 22:45 10/20/20 22:44 Heparin Sodium (Porcine) (Heparin 5000 units/ml) 5,000 units EVERY 12 HOURS SUBQ 07/23/20 09:00 09/06/20 08:59 Lorazepam (Ativan 2mg/ml 1ml) 1 mg Q4H PRN IV For Anxiety 07/23/20 10:45 07/30/20 10:44 07/23/20 23:01 Morphine Sulfate (Morphine Sulfate) 2 mg Q4H PRN IVP For Pain 07/23/20 14:00 07/30/20 13:59 Ondansetron HCl (Zofran) 4 mg Q6H PRN IVP Nausea & Vomiting 07/22/20 22:45 08/21/20 22:44 Polyethylene Glycol (Miralax) 17 gm HSPRN PRN ORAL Constipation 07/22/20 22:45 08/21/20 22:44 Zolpidem Tartrate (Ambien) 5 mg HSPRN PRN ORAL Insomnia 07/22/20 22:45 07/29/20 22:44 Rosaura Aviles M.D. Jul 24, 2020 08:31
[2020-07-24] MEDS: Heparin 5000 units/ml inj SUBQ SCH ×2 (08:35→21:00)
--- NOTE | 2020-07-24 09:21 | Pulmonology Progress Note ---
Subjective Allergies: Coded Allergies: No Known Allergies (Unverified , 07/22/20) Subjective denies pain, CP. SOB BP elevated this am Objective Last 24 Hour Vital Signs Date Time Temp Pulse Resp B/P (MAP) Pulse Ox O2 Delivery O2 Flow Rate FiO2 07/24/20 04:00 97.2 68 18 158/99 (118) 95 07/23/20 23:31 72 18 125/73 97 07/23/20 23:01 77 18 128/75 96 07/23/20 20:38 Room Air 07/23/20 20:00 97.5 77 18 128/75 (92) 96 07/23/20 16:00 99.1 64 18 139/81 (100) 96 07/23/20 12:00 98.6 66 18 129/88 (102) 98 07/23/20 11:16 77 18 115/71 95 07/23/20 10:46 77 18 115/71 95 Intake and Output 07/23/20 07/24/20 19:00 07:00 Intake Total 600 ml 360 ml Output Total 2 ml Balance 600 ml 358 ml Other 600 ml 360 ml Output Urine Total 2 ml General Appearance: no acute distress, other - obese male HEENT: normocephalic, atraumatic, anicteric, mucous membranes moist, PERRL Respiratory: lungs clear - with moderate air exchange , no respiratory distress, no accessory muscle use Cardiovascular: normal rate, regular rhythm Abdomen: normal bowel sounds, soft, non tender - obese, other - Midline surgical scar Extremities: no edema, pedal pulses normal, other - varicose venins BLE 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 Microbiology Date/Time Source Procedure Growth Status 07/22/20 20:45 Urine,Clean Catch Urine Culture - Final Mixed Gram Positive Organism Complete Laboratory Tests 07/23/20 18:00: Urine Color Yellow, Urine Appearance Clear, Urine pH 6, Urine Specific [place] 1.015, Urine Protein 2+H, Urine Glucose (UA) Negative, Urine Ketones 3+H, Urine Blood 2+H, Urine Nitrite Negative, Urine Bilirubin Negative, Urine Urobilinogen Normal, Urine Leukocyte Esterase 1+H, Urine RBC 2-4H, Urine WBC 5-10H, Urine Squamous Epithelial Cells Occasional, Urine Bacteria Few, Urine Eosinophils None seen, Urine Osmolality 707H, Urine Random Creatinine [Pending], Urine Random Microalbumin [Pending], Urine Random Sodium 149H, Urine Microalbumin/Creatinine Ratio [Pending] Current Medications Medications (Trade) Dose Ordered Sig/Fabrizio Route PRN Reason Start Time Stop Time Status Last Admin Dose Admin Acetaminophen (Tylenol) 650 mg Q4H PRN ORAL fever 07/22/20 22:45 08/21/20 22:44 Ceftriaxone Sodium 1 gm/ Dextrose 55 ml @ 110 mls/hr Q24H IVPB 07/23/20 15:00 07/30/20 14:59 07/23/20 16:00 Dextrose (Dextrose 50%) 25 ml Q30M PRN IV Hypoglycemia 07/22/20 22:45 10/20/20 22:44 Dextrose (Dextrose 50%) 50 ml Q30M PRN IV Hypoglycemia 07/22/20 22:45 10/20/20 22:44 Heparin Sodium (Porcine) (Heparin 5000 units/ml) 5,000 units EVERY 12 HOURS SUBQ 07/23/20 09:00 09/06/20 08:59 Lorazepam (Ativan 2mg/ml 1ml) 1 mg Q4H PRN IV For Anxiety 07/23/20 10:45 07/30/20 10:44 07/23/20 23:01 Morphine Sulfate (Morphine Sulfate) 2 mg Q4H PRN IVP For Pain 07/23/20 14:00 07/30/20 13:59 Ondansetron HCl (Zofran) 4 mg Q6H PRN IVP Nausea & Vomiting 07/22/20 22:45 08/21/20 22:44 Polyethylene Glycol (Miralax) 17 gm HSPRN PRN ORAL Constipation 07/22/20 22:45 08/21/20 22:44 Zolpidem Tartrate (Ambien) 5 mg HSPRN PRN ORAL Insomnia 07/22/20 22:45 07/29/20 22:44 Assessment/Plan Assessment/Plan ASSESSMENT s/p mechanical fall Probable UTI ANGI versus CKD Old compression fracture Compression fracture L3, probably old Elevated BP PLAN OF CARE all imaging noted- pain management pain specialist eval pending abx, UCX+ mixed GPO fall precaution PT eval and Rx DVT prophylaxis renal US noted avoid nephrotoxic add Clonidine prn , if remains elevated, will start routine anti HTN supportive care case discussed and evaluated by supervising physician Aida Howard NP Jul 24, 2020 09:21
[2020-07-24 12:00] VITALS: BP 133/78
[2020-07-24] MEDS: cefTRIAXone 1 GM in D5W 55 ML IVPB SCH (15:00)
[2020-07-24 16:00] VITALS: BP 149/95
--- NOTE | 2020-07-24 17:22 | Internal Med Progress Note ---
Subjective Date of Service: Jul 24, 2020 Physician Name Shai Zimmer Attending Physician Andrés Rothman MD Current Medications Medications (Trade) Dose Ordered Sig/Fabrizio Route PRN Reason Start Time Stop Time Status Last Admin Dose Admin Acetaminophen (Tylenol) 650 mg Q4H PRN ORAL fever 07/22/20 22:45 08/21/20 22:44 Ceftriaxone Sodium 1 gm/ Dextrose 55 ml @ 110 mls/hr Q24H IVPB 07/23/20 15:00 07/30/20 14:59 07/24/20 15:00 Clonidine HCl (Catapres Tab) 0.1 mg Q4H PRN ORAL sbp > 160 07/24/20 09:41 10/22/20 09:40 Dextrose (Dextrose 50%) 25 ml Q30M PRN IV Hypoglycemia 07/22/20 22:45 10/20/20 22:44 Dextrose (Dextrose 50%) 50 ml Q30M PRN IV Hypoglycemia 07/22/20 22:45 10/20/20 22:44 Heparin Sodium (Porcine) (Heparin 5000 units/ml) 5,000 units EVERY 12 HOURS SUBQ 07/23/20 09:00 09/06/20 08:59 Lorazepam (Ativan 2mg/ml 1ml) 1 mg Q4H PRN IV For Anxiety 07/23/20 10:45 07/30/20 10:44 07/23/20 23:01 Morphine Sulfate (Morphine Sulfate) 2 mg Q4H PRN IVP For Pain 07/23/20 14:00 07/30/20 13:59 Ondansetron HCl (Zofran) 4 mg Q6H PRN IVP Nausea & Vomiting 07/22/20 22:45 08/21/20 22:44 Polyethylene Glycol (Miralax) 17 gm HSPRN PRN ORAL Constipation 07/22/20 22:45 08/21/20 22:44 Zolpidem Tartrate (Ambien) 5 mg HSPRN PRN ORAL Insomnia 07/22/20 22:45 07/29/20 22:44 Allergies: Coded Allergies: No Known Allergies (Unverified , 07/22/20) ROS Limited/Unobtainable: No Constitutional: Reports: no symptoms HEENT: Reports: no symptoms Cardiovascular: Reports: no symptoms Respiratory: Reports: no symptoms Gastrointestinal/Abdominal: Reports: no symptoms Genitourinary: Reports: no symptoms Neurologic/Psychiatric: Reports: no symptoms Subjective 74 YO M admitted with fall injury and back pain. Now compression fracture thoracic and lumbar vertebrae. Cover for [facility] - Dr Rothman Objective Last Vital Signs Date Time Temp Pulse Resp B/P (MAP) Pulse Ox O2 Delivery O2 Flow Rate FiO2 07/24/20 16:00 98.0 75 20 149/95 (113) 96 07/24/20 09:00 Room Air Laboratory Tests Test 07/23/20 18:00 Urine Color Yellow Urine Appearance Clear Urine pH 6 (4.5-8.0) Urine Specific [place] 1.015 (1.005-1.035) Urine Protein 2+ (NEGATIVE) H Urine Glucose (UA) Negative (NEGATIVE) Urine Ketones 3+ (NEGATIVE) H Urine Blood 2+ (NEGATIVE) H Urine Nitrite Negative (NEGATIVE) Urine Bilirubin Negative (NEGATIVE) Urine Urobilinogen Normal MG/DL (0.0-1.0) Urine Leukocyte Esterase 1+ (NEGATIVE) H Urine RBC 2-4 /HPF (0 - 0) H Urine WBC 5-10 /HPF (0 - 0) H Urine Squamous Epithelial Cells Occasional /LPF Urine Bacteria Few /HPF (NONE) Urine Eosinophils None seen (NONE SEEN) Urine Osmolality 707 mOsm/kg (429-449) H Urine Random Creatinine Pending Urine Random Microalbumin Pending Urine Random Sodium 149 mmol/L (20-110) H Urine Microalbumin/Creatinine Ratio Pending Microbiology Date/Time Source Procedure Growth Status 07/22/20 20:45 Urine,Clean Catch Urine Culture - Final Mixed Gram Positive Organism Complete Intake and Output 07/23/20 07/24/20 19:00 07:00 Intake Total 600 ml 360 ml Output Total 2 ml Balance 600 ml 358 ml Other 600 ml 360 ml Output Urine Total 2 ml Assessment/Plan Assessment/Plan ASSESSMENT: 1. Status post fall with intractable back pain 2. compression fracture of the lumbar 3 and thoracic 7 & 8 vertebra 2. UTI. 3. Chronic kidney disease. 4. Morbid obesity. PLAN: 1. Admit the patient to medical floor. 2. Dr. Byrne= Pulmonary/critical care 3. Infectious disease consultation=Dr. Virgen. 4. antibiotic = Rocephin. 5. Code status=full code. 6. DVT prophylaxis=heparin subcu. 7. renal ultrasound=essentially normal 8. pain control. Shai Zimmer MD Jul 24, 2020 17:22
--- NOTE | 2020-07-24 19:24 | NUR ---
HAND-OFF: Report given to KRYSTYNA Giron.
--- NOTE | 2020-07-24 19:42 | Consultation ---
Consult Note Consult Note I am asked to evaluate the patient at the request of Dr. Rothman for renal failure Patient seen in 4 E. this morning. Patient interviewed, examined. Day 2 of patient's hospitalization Emergency room note: Chief Complaint: Back Pain-No Injury 74-year-old male with no known past medical history brought in by paramedics from home due to fall and injury. Patient reported he was in the shower as he fell and also had a voided cabinet fall on hand. Patient does not make a lot of sense at this time and appears to have an underlying dementia. 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 Denies any pain at this time reports that he only has neck and lower back pain when moving around. Denies any saddle paresthesia, tingling numbness. Denies urinary or bowel incontinence. Has not taken medication for symptom relief. Patient is a poor historian. 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 GENERAL: The patient is awake, responsive, no acute distress. HEAD AND NECK: Pupils are equal and reactive to light. Extraocular movements intact. Neck was supple. No JVD. LUNGS: Good air entry. No wheezing or rales. HEART: S1, S2. Regular rhythm. Distant heart sounds. No murmur or gallops. ABDOMEN: Soft, nondistended, nontender. Morbidly obese. Midline surgical scar was noted from the umbilical area down to the suprapubic area. ABDOMEN: Morbidly obese. EXTREMITIES: No cyanosis, clubbing, edema. Varicose veins in bilateral lower extremities. BACK: Paraspinal tenderness in the lower back area. NEUROLOGIC: Cranial nerves II to XII grossly intact. The patient is moving all the extremities. Gait was not assessed due to the patient's status. LABORATORY DATA: Admission from the emergency department, sodium 135, potassium 3.9, chloride 101, bicarb 26, BUN 10, creatinine 1.4, and GFR is 49. Glucose is 116, calcium is 8.3, total bili of 1.1, AST of 32, ALT of 15, alkaline phosphatase 66, total CK is 366. TSH is 1.486. PT of 12, INR 1.1, and PTT of 32. Urinalysis, +2 ketone, +2 blood, negative nitrite, +2 leukocyte esterase, 0-2 rbc's, tainted wbc. WBC 6.0, hemoglobin 15, hematocrit 43, and platelets are 133,000. . Assessment/Plan This 74-year-old patient presents with mechanical fall And serum creatinine of 1.4 which is ANGI versus CKD Possible UTI Old compression fracture, compression fracture L3 Hypertension Previous abdominal surgery Enlarged prostate Proteinuria Suggestion: Pain management Avoid nephrotoxic's Start Norvasc, keep the the blood pressure in check Start Flomax Monitor renal parameters Urine studies Review renal ultrasound , no hydronephrosis Fall precautions Per orders Gelacio Mata MD Jul 24, 2020 19:42
[2020-07-24 20:00] VITALS: BP 180/103
[2020-07-24] MEDS: Tamsulosin 0.4mg cap ORAL SCH (21:25)
[2020-07-24] MEDS: LORazepam Inj 2mg/ml 1ml IV PRN (21:27)
[2020-07-25] VITALS: BP 144/79
[2020-07-25 04:00] VITALS: BP 150/77
--- NOTE | 2020-07-25 06:56 | NUR ---
NURSE HAND-OFF: Important Events on Shift: pt bp was high i gave him clonidine and Ativan. Patient Status: stable Diet: reg Pending Orders: Pending Results/Labs: Pending MD notification: Latest Vital Signs: Temperature 97.5 , Pulse 73 , B/P 150 /77 , Respiratory Rate 20 , O2 SAT 97 , Room Air, O2 Flow Rate . Vital Sign Comment: Latest Robertson Fall Score: 70 Fall Risk: High Risk Safety Measures: Call light Within Reach, Bed Alarm Zone 2, Side Rails Side Rails x2, Bed position Low and Locked. Fall Precautions: Yellow Socks Yellow Gown Door Sign Patient Fall Education
--- NOTE | 2020-07-25 07:22 | NUR ---
NURSE NOTES: Patient alert x2, confused, trying to get out of bed; on room air, no sing of shortness of breath; no sing of distress; no sing of chest pain IV Left-Hand flushes well; sacral area discoloration noted; side rials up x2, breaks engaged, bed at lowest position, bed alarm on; call light within reach; will keep monitoring.
--- NOTE | 2020-07-25 07:26 | NUR ---
HAND-OFF: Report given to KRYSTYNA Cross.
[2020-07-25 07:46] LABS: HEMATOCRIT 44.1 % (42.0-52.0); HEMOGLOBIN 15.3 G/DL (14.2-18.0); MEAN CORPUSCULAR VOLUME 94 FL (80-99); PLATELET COUNT 133 K/UL (150-450); RED BLOOD COUNT 4.68 M/UL (4.70-6.10); RED CELL DISTRIBUTION WIDTH 12.2 % (11.6-14.8); WHITE BLOOD COUNT 4.5 K/UL (4.8-10.8)
[2020-07-25 08:00] VITALS: BP 130/80
[2020-07-25 08:03] LABS: ALANINE AMINOTRANSFERASE 14 U/L (12-78); ALBUMIN 3.6 G/DL (3.4-5.0); ALBUMIN/GLOBULIN RATIO 1.2 (1.0-2.7); ALKALINE PHOSPHATASE 54 U/L (46-116); ANION GAP 9 mmol/L (5-15); ASPARTATE AMINO TRANSFERASE 28 U/L (15-37); BILIRUBIN,TOTAL 0.7 MG/DL (0.2-1.0); BLOOD UREA NITROGEN 16 mg/dL (7-18); CALCIUM 8.5 MG/DL (8.5-10.1); CARBON DIOXIDE 26 MMOL/L (21-32); CHLORIDE 102 MMOL/L (98-107); CHOLESTEROL 146 MG/DL (< 200); CREATININE 1.5 MG/DL (0.55-1.30); HDL CHOLESTEROL 29 MG/DL (40-60); POTASSIUM 3.7 MMOL/L (3.5-5.1); SODIUM 137 MMOL/L (136-145); TRIGLYCERIDES 89 MG/DL (30-150)
[2020-07-25] MEDS: Docusate 100mg cap ORAL SCH ×3 (08:08→17:02)
[2020-07-25] MEDS: Heparin 5000 units/ml inj SUBQ SCH ×2 (08:08→20:37)
[2020-07-25 08:14] LABS: CREATINE KINASE 174 U/L (26-308)
--- NOTE | 2020-07-25 09:47 | Pulmonology Progress Note ---
Subjective ROS Limited/Unobtainable: No Allergies: Coded Allergies: No Known Allergies (Unverified , 07/22/20) Subjective denies pain, CP. SOB BP better this am Objective Last 24 Hour Vital Signs Date Time Temp Pulse Resp B/P (MAP) Pulse Ox O2 Delivery O2 Flow Rate FiO2 07/25/20 08:08 60 130/80 07/25/20 08:00 97.2 60 20 130/80 (97) 96 07/25/20 04:00 97.5 73 20 150/77 (101) 97 07/25/20 00:00 97.7 66 22 144/79 (100) 97 07/24/20 21:57 82 17 178/103 96 07/24/20 21:27 86 18 184/102 96 07/24/20 21:26 184/102 07/24/20 20:48 Room Air 07/24/20 20:00 98.1 72 24 180/103 (128) 96 07/24/20 16:00 98.0 75 20 149/95 (113) 96 07/24/20 12:00 97.8 69 19 133/78 (96) 96 Intake and Output 07/24/20 07/25/20 19:00 07:00 Intake Total 350 ml Output Total 200 ml Balance 150 ml Intake Oral 240 ml IV Total 110 ml Output Urine Total 200 ml # Voids 1 5 Objective General Appearance: no acute distress, obese male HEENT: normocephalic, atraumatic, anicteric, mucous membranes moist, PERRL Respiratory: lungs clear - with moderate air exchange , no respiratory distress, no accessory muscle use Cardiovascular: normal rate, regular rhythm Abdomen: normal bowel sounds, soft, non tender , obese, midline surgical scar Extremities: no edema, pedal pulses normal, varicose venins BLE 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 Abdomen: other - Midline surgical scar Extremities: other - varicose venins BLE Microbiology Date/Time Source Procedure Growth Status 07/22/20 20:45 Urine,Clean Catch Urine Culture - Final Mixed Gram Positive Organism Complete Laboratory Tests 07/25/20 07:25: White Blood Count 4.5L, Red Blood Count 4.68L, Hemoglobin 15.3, Hematocrit 44.1, Mean Corpuscular Volume 94, Mean Corpuscular Hemoglobin 32.7H, Mean Corpuscular Hemoglobin Concent 34.8, Red Cell Distribution Width 12.2, Platelet Count 133L, Mean Platelet Volume 8.5, Neutrophils (%) (Auto) , Lymphocytes (%) (Auto) , Monocytes (%) (Auto) , Eosinophils (%) (Auto) , Basophils (%) (Auto) , Neutrophils % (Manual) [Pending], Lymphocytes % (Manual) [Pending], Platelet Estimate [Pending], Platelet Morphology [Pending], Sodium Level 137, Potassium Level 3.7, Chloride Level 102, Carbon Dioxide Level 26, Anion Gap 9, Blood Urea Nitrogen 16, Creatinine 1.5H, Estimat Glomerular Filtration Rate 45.9, Glucose Level 101, Hemoglobin A1c 5.4, Uric Acid 6.2, Calcium Level 8.5, Phosphorus Level 3.0, Magnesium Level 2.3, Total Bilirubin 0.7, Aspartate Amino Transf (AST/SGOT) 28, Alanine Aminotransferase (ALT/SGPT) 14, Alkaline Phosphatase 54, Total Creatine Kinase 174, Total Protein 6.7, Albumin 3.6, Globulin 3.1, Albumin/Globulin Ratio 1.2, Triglycerides Level 89, Cholesterol Level 146, LDL Cholesterol 101H, HDL Cholesterol 29L, Cholesterol/HDL Ratio 5.0H Current Medications Medications (Trade) Dose Ordered Sig/Fabrizio Route PRN Reason Start Time Stop Time Status Last Admin Dose Admin Acetaminophen (Tylenol) 650 mg Q4H PRN ORAL fever 07/22/20 22:45 08/21/20 22:44 Amlodipine Besylate (Norvasc) 5 mg DAILY ORAL 07/25/20 09:00 08/24/20 08:59 07/25/20 08:08 Ceftriaxone Sodium 1 gm/ Dextrose 55 ml @ 110 mls/hr Q24H IVPB 07/23/20 15:00 07/30/20 14:59 07/24/20 15:00 Clonidine HCl (Catapres Tab) 0.1 mg Q4H PRN ORAL sbp > 160 07/24/20 09:41 10/22/20 09:40 07/24/20 21:26 Dextrose (Dextrose 50%) 25 ml Q30M PRN IV Hypoglycemia 07/22/20 22:45 10/20/20 22:44 Dextrose (Dextrose 50%) 50 ml Q30M PRN IV Hypoglycemia 07/22/20 22:45 10/20/20 22:44 Docusate Sodium (Colace) 100 mg THREE TIMES A DAY ORAL 07/25/20 09:00 08/24/20 08:59 07/25/20 08:08 Heparin Sodium (Porcine) (Heparin 5000 units/ml) 5,000 units EVERY 12 HOURS SUBQ 07/23/20 09:00 09/06/20 08:59 Lorazepam (Ativan 2mg/ml 1ml) 1 mg Q4H PRN IV For Anxiety 07/23/20 10:45 07/30/20 10:44 07/24/20 21:27 Morphine Sulfate (Morphine Sulfate) 2 mg Q4H PRN IVP For Pain 07/23/20 14:00 07/30/20 13:59 Ondansetron HCl (Zofran) 4 mg Q6H PRN IVP Nausea & Vomiting 07/22/20 22:45 08/21/20 22:44 Pantoprazole (Protonix) 40 mg EVERY 12 HOURS ORAL 07/24/20 21:00 08/23/20 20:59 07/25/20 08:08 Polyethylene Glycol (Miralax) 17 gm HSPRN PRN ORAL Constipation 07/22/20 22:45 08/21/20 22:44 Tamsulosin HCl (Flomax) 0.4 mg BEDTIME ORAL 07/24/20 21:00 08/23/20 20:59 07/24/20 21:25 Zolpidem Tartrate (Ambien) 5 mg HSPRN PRN ORAL Insomnia 07/22/20 22:45 07/29/20 22:44 Assessment/Plan Assessment/Plan ASSESSMENT s/p mechanical fall Probable UTI ANGI versus CKD Old compression fracture Compression fracture L3, probably old HTN with HTN urgency PLAN OF CARE MS floor all imaging noted- pain management pain specialist eval pending abx, UCX+ mixed GPO ? dc abx - per ID recs fall precaution PT eval and Rx DVT prophylaxis renal US noted avoid nephrotoxic correct lytes as needed nephro follows BP management with CCB ( started by nephro ), Clonidine prn for BP spikes, BP stable this am supportive care case discussed and evaluated by supervising physician Aida Howard PROJECT CONTROLS SPECIALIST Jul 25, 2020 09:47
--- NOTE | 2020-07-25 10:33 | Consultation ---
History of Present Illness General Date patient seen: Jul 25, 2020 Chief Complaint: Present Illness Allergies: Coded Allergies: No Known Allergies (Unverified , 07/22/20) Medication History No Active Prescriptions or Reported Meds Patient History Healthcare decision maker Resuscitation status Advanced Directive on File Physical Exam Last 24 Hour Vital Signs Date Time Temp Pulse Resp B/P (MAP) Pulse Ox O2 Delivery O2 Flow Rate FiO2 07/25/20 09:00 Room Air 07/25/20 08:08 60 130/80 07/25/20 08:00 97.2 60 20 130/80 (97) 96 07/25/20 04:00 97.5 73 20 150/77 (101) 97 07/25/20 00:00 97.7 66 22 144/79 (100) 97 07/24/20 21:57 82 17 178/103 96 07/24/20 21:27 86 18 184/102 96 07/24/20 21:26 184/102 07/24/20 20:48 Room Air 07/24/20 20:00 98.1 72 24 180/103 (128) 96 07/24/20 16:00 98.0 75 20 149/95 (113) 96 07/24/20 12:00 97.8 69 19 133/78 (96) 96 Intake and Output 07/24/20 07/25/20 19:00 07:00 Intake Total 350 ml Output Total 200 ml Balance 150 ml Intake Oral 240 ml IV Total 110 ml Output Urine Total 200 ml # Voids 1 5 Laboratory Tests Test 07/25/20 07:25 White Blood Count 4.5 K/UL (4.8-10.8) L Red Blood Count 4.68 M/UL (4.70-6.10) L Hemoglobin 15.3 G/DL (14.2-18.0) Hematocrit 44.1 % (42.0-52.0) Mean Corpuscular Volume 94 FL (80-99) Mean Corpuscular Hemoglobin 32.7 PG (27.0-31.0) H Mean Corpuscular Hemoglobin Concent 34.8 G/DL (32.0-36.0) Red Cell Distribution Width 12.2 % (11.6-14.8) Platelet Count 133 K/UL (150-450) L Mean Platelet Volume 8.5 FL (6.5-10.1) Neutrophils (%) (Auto) % (45.0-75.0) Lymphocytes (%) (Auto) % (20.0-45.0) Monocytes (%) (Auto) % (1.0-10.0) Eosinophils (%) (Auto) % (0.0-3.0) Basophils (%) (Auto) % (0.0-2.0) Neutrophils % (Manual) Pending Lymphocytes % (Manual) Pending Platelet Estimate Pending Platelet Morphology Pending Sodium Level 137 MMOL/L (136-145) Potassium Level 3.7 MMOL/L (3.5-5.1) Chloride Level 102 MMOL/L (98-107) Carbon Dioxide Level 26 MMOL/L (21-32) Anion Gap 9 mmol/L (5-15) Blood Urea Nitrogen 16 mg/dL (7-18) Creatinine 1.5 MG/DL (0.55-1.30) H Estimat Glomerular Filtration Rate 45.9 mL/min (>60) Glucose Level 101 MG/DL (74-106) Hemoglobin A1c 5.4 % (4.3-6.0) Uric Acid 6.2 MG/DL (2.6-7.2) Calcium Level 8.5 MG/DL (8.5-10.1) Phosphorus Level 3.0 MG/DL (2.5-4.9) Magnesium Level 2.3 MG/DL (1.8-2.4) Total Bilirubin 0.7 MG/DL (0.2-1.0) Aspartate Amino Transf (AST/SGOT) 28 U/L (15-37) Alanine Aminotransferase (ALT/SGPT) 14 U/L (12-78) Alkaline Phosphatase 54 U/L (46-116) Total Creatine Kinase 174 U/L (26-308) Total Protein 6.7 G/DL (6.4-8.2) Albumin 3.6 G/DL (3.4-5.0) Globulin 3.1 g/dL Albumin/Globulin Ratio 1.2 (1.0-2.7) Triglycerides Level 89 MG/DL (30-150) Cholesterol Level 146 MG/DL (< 200) LDL Cholesterol 101 mg/dL (<100) H HDL Cholesterol 29 MG/DL (40-60) L Cholesterol/HDL Ratio 5.0 (3.3-4.4) H Height (Feet): 5 Height (Inches): 8.00 Weight (Pounds): 210 Medications Current Medications Medications (Trade) Dose Ordered Sig/Fabrizio Route PRN Reason Start Time Stop Time Status Last Admin Dose Admin Acetaminophen (Tylenol) 650 mg Q4H PRN ORAL fever 07/22/20 22:45 08/21/20 22:44 Amlodipine Besylate (Norvasc) 5 mg DAILY ORAL 07/25/20 09:00 08/24/20 08:59 07/25/20 08:08 Ceftriaxone Sodium 1 gm/ Dextrose 55 ml @ 110 mls/hr Q24H IVPB 07/23/20 15:00 07/30/20 14:59 07/24/20 15:00 Clonidine HCl (Catapres Tab) 0.1 mg Q4H PRN ORAL sbp > 160 07/24/20 09:41 10/22/20 09:40 07/24/20 21:26 Dextrose (Dextrose 50%) 25 ml Q30M PRN IV Hypoglycemia 07/22/20 22:45 10/20/20 22:44 Dextrose (Dextrose 50%) 50 ml Q30M PRN IV Hypoglycemia 07/22/20 22:45 10/20/20 22:44 Docusate Sodium (Colace) 100 mg THREE TIMES A DAY ORAL 07/25/20 09:00 08/24/20 08:59 07/25/20 08:08 Heparin Sodium (Porcine) (Heparin 5000 units/ml) 5,000 units EVERY 12 HOURS SUBQ 07/23/20 09:00 09/06/20 08:59 Lorazepam (Ativan 2mg/ml 1ml) 1 mg Q4H PRN IV For Anxiety 07/23/20 10:45 07/30/20 10:44 07/24/20 21:27 Morphine Sulfate (Morphine Sulfate) 2 mg Q4H PRN IVP For Pain 07/23/20 14:00 07/30/20 13:59 Ondansetron HCl (Zofran) 4 mg Q6H PRN IVP Nausea & Vomiting 07/22/20 22:45 08/21/20 22:44 Pantoprazole (Protonix) 40 mg EVERY 12 HOURS ORAL 07/24/20 21:00 08/23/20 20:59 07/25/20 08:08 Polyethylene Glycol (Miralax) 17 gm HSPRN PRN ORAL Constipation 07/22/20 22:45 08/21/20 22:44 Tamsulosin HCl (Flomax) 0.4 mg BEDTIME ORAL 07/24/20 21:00 08/23/20 20:59 07/24/20 21:25 Zolpidem Tartrate (Ambien) 5 mg HSPRN PRN ORAL Insomnia 07/22/20 22:45 07/29/20 22:44 Assessment/Plan Assessment/Plan: (1) Back pain (2) Thoracic and lumbar compression fractures seen dictated Mathew Cornejo Jul 25, 2020 10:33
[2020-07-25 12:00] VITALS: BP 136/82
--- NOTE | 2020-07-25 13:02 | Nephrology Progress Note ---
Assessment/Plan Problem List: (1) Renal failure (ARF), acute on chronic (2) BPH (benign prostatic hyperplasia) (3) UTI (urinary tract infection) Assessment This 74-year-old patient presents with mechanical fall And serum creatinine of 1.4 which is ANGI versus CKD Possible UTI Old compression fracture, compression fracture L3 Hypertension Previous abdominal surgery Enlarged prostate Proteinuria Plan Pain management Avoid nephrotoxic's Start Norvasc, keep the the blood pressure in check Start Flomax Monitor renal parameters Urine studies Review renal ultrasound , no hydronephrosis Fall precautions Per orders Subjective ROS Limited/Unobtainable: No Constitutional: Reports: malaise Objective Objective Last 24 Hour Vital Signs Date Time Temp Pulse Resp B/P (MAP) Pulse Ox O2 Delivery O2 Flow Rate FiO2 07/25/20 12:00 96.0 68 18 136/82 (100) 97 07/25/20 09:00 Room Air 07/25/20 08:08 60 130/80 07/25/20 08:00 97.2 60 20 130/80 (97) 96 07/25/20 04:00 97.5 73 20 150/77 (101) 97 07/25/20 00:00 97.7 66 22 144/79 (100) 97 07/24/20 21:57 82 17 178/103 96 07/24/20 21:27 86 18 184/102 96 07/24/20 21:26 184/102 07/24/20 20:48 Room Air 07/24/20 20:00 98.1 72 24 180/103 (128) 96 07/24/20 16:00 98.0 75 20 149/95 (113) 96 Intake and Output 07/24/20 07/25/20 19:00 07:00 Intake Total 350 ml Output Total 200 ml Balance 150 ml Intake Oral 240 ml IV Total 110 ml Output Urine Total 200 ml # Voids 1 5 Current Medications Medications (Trade) Dose Ordered Sig/Fabrizio Route PRN Reason Start Time Stop Time Status Last Admin Dose Admin Acetaminophen (Tylenol) 650 mg Q4H PRN ORAL Temp >100.5, mod pain 07/25/20 10:30 08/24/20 10:29 Amlodipine Besylate (Norvasc) 5 mg DAILY ORAL 07/25/20 09:00 08/24/20 08:59 07/25/20 08:08 Ceftriaxone Sodium 1 gm/ Dextrose 55 ml @ 110 mls/hr Q24H IVPB 07/23/20 15:00 07/30/20 14:59 07/24/20 15:00 Clonidine HCl (Catapres Tab) 0.1 mg Q4H PRN ORAL sbp > 160 07/24/20 09:41 10/22/20 09:40 07/24/20 21:26 Dextrose (Dextrose 50%) 25 ml Q30M PRN IV Hypoglycemia 07/22/20 22:45 10/20/20 22:44 Dextrose (Dextrose 50%) 50 ml Q30M PRN IV Hypoglycemia 07/22/20 22:45 10/20/20 22:44 Docusate Sodium (Colace) 100 mg THREE TIMES A DAY ORAL 07/25/20 09:00 08/24/20 08:59 07/25/20 11:54 Heparin Sodium (Porcine) (Heparin 5000 units/ml) 5,000 units EVERY 12 HOURS SUBQ 07/23/20 09:00 09/06/20 08:59 Lorazepam (Ativan 2mg/ml 1ml) 1 mg Q4H PRN IV For Anxiety 07/23/20 10:45 07/30/20 10:44 07/24/20 21:27 Ondansetron HCl (Zofran) 4 mg Q6H PRN IVP Nausea & Vomiting 07/22/20 22:45 08/21/20 22:44 Pantoprazole (Protonix) 40 mg EVERY 12 HOURS ORAL 07/24/20 21:00 08/23/20 20:59 07/25/20 08:08 Polyethylene Glycol (Miralax) 17 gm HSPRN PRN ORAL Constipation 07/22/20 22:45 08/21/20 22:44 Tamsulosin HCl (Flomax) 0.4 mg BEDTIME ORAL 07/24/20 21:00 08/23/20 20:59 07/24/20 21:25 Zolpidem Tartrate (Ambien) 5 mg HSPRN PRN ORAL Insomnia 07/22/20 22:45 07/29/20 22:44 Laboratory Tests 07/25/20 07:25: White Blood Count 4.5L, Red Blood Count 4.68L, Hemoglobin 15.3, Hematocrit 44.1, Mean Corpuscular Volume 94, Mean Corpuscular Hemoglobin 32.7H, Mean Corpuscular Hemoglobin Concent 34.8, Red Cell Distribution Width 12.2, Platelet Count 133L, Mean Platelet Volume 8.5, Neutrophils (%) (Auto) , Lymphocytes (%) (Auto) , Monocytes (%) (Auto) , Eosinophils (%) (Auto) , Basophils (%) (Auto) , Differential Total Cells Counted 100, Neutrophils % (Manual) 44L, Lymphocytes % (Manual) 32, Monocytes % (Manual) 21H, Eosinophils % (Manual) 2, Basophils % (Manual) 0, Myelocytes % 1H, Band Neutrophils 0, Platelet Estimate Adequate, Platelet Morphology Normal, Red Blood Cell Morphology Normal, Sodium Level 137, Potassium Level 3.7, Chloride Level 102, Carbon Dioxide Level 26, Anion Gap 9, Blood Urea Nitrogen 16, Creatinine 1.5H, Estimat Glomerular Filtration Rate 45.9, Glucose Level 101, Hemoglobin A1c 5.4, Uric Acid 6.2, Calcium Level 8.5, Phosphorus Level 3.0, Magnesium Level 2.3, Total Bilirubin 0.7, Aspartate Amino Transf (AST/SGOT) 28, Alanine Aminotransferase (ALT/SGPT) 14, Alkaline Phosphatase 54, Total Creatine Kinase 174, Total Protein 6.7, Albumin 3.6, Globulin 3.1, Albumin/Globulin Ratio 1.2, Triglycerides Level 89, Cholesterol Level 146, LDL Cholesterol 101H, HDL Cholesterol 29L, Cholesterol/HDL Ratio 5.0H Height (Feet): 5 Height (Inches): 8.00 Weight (Pounds): 210 Cardiovascular: normal rate Respiratory/Chest: decreased breath sounds Abdomen: soft Gelacio Mata MD Jul 25, 2020 13:02
[2020-07-25] MEDS: LORazepam Inj 2mg/ml 1ml IV PRN (13:20)
--- NOTE | 2020-07-25 13:41 | Internal Med Progress Note ---
Subjective Date of Service: Jul 25, 2020 Physician Name Shai Zimmer Attending Physician Andrés Rothman MD Current Medications Medications (Trade) Dose Ordered Sig/Fabrizio Route PRN Reason Start Time Stop Time Status Last Admin Dose Admin Acetaminophen (Tylenol) 650 mg Q4H PRN ORAL Temp >100.5, mod pain 07/25/20 10:30 08/24/20 10:29 Amlodipine Besylate (Norvasc) 5 mg DAILY ORAL 07/25/20 09:00 08/24/20 08:59 07/25/20 08:08 Ceftriaxone Sodium 1 gm/ Dextrose 55 ml @ 110 mls/hr Q24H IVPB 07/23/20 15:00 07/30/20 14:59 07/24/20 15:00 Clonidine HCl (Catapres Tab) 0.1 mg Q4H PRN ORAL sbp > 160 07/24/20 09:41 10/22/20 09:40 07/24/20 21:26 Dextrose (Dextrose 50%) 25 ml Q30M PRN IV Hypoglycemia 07/22/20 22:45 10/20/20 22:44 Dextrose (Dextrose 50%) 50 ml Q30M PRN IV Hypoglycemia 07/22/20 22:45 10/20/20 22:44 Docusate Sodium (Colace) 100 mg THREE TIMES A DAY ORAL 07/25/20 09:00 08/24/20 08:59 07/25/20 11:54 Heparin Sodium (Porcine) (Heparin 5000 units/ml) 5,000 units EVERY 12 HOURS SUBQ 07/23/20 09:00 09/06/20 08:59 Lorazepam (Ativan 2mg/ml 1ml) 1 mg Q4H PRN IV For Anxiety 07/23/20 10:45 07/30/20 10:44 07/25/20 13:20 Ondansetron HCl (Zofran) 4 mg Q6H PRN IVP Nausea & Vomiting 07/22/20 22:45 08/21/20 22:44 Pantoprazole (Protonix) 40 mg EVERY 12 HOURS ORAL 07/24/20 21:00 08/23/20 20:59 07/25/20 08:08 Polyethylene Glycol (Miralax) 17 gm HSPRN PRN ORAL Constipation 07/22/20 22:45 08/21/20 22:44 Tamsulosin HCl (Flomax) 0.4 mg BEDTIME ORAL 07/24/20 21:00 08/23/20 20:59 07/24/20 21:25 Zolpidem Tartrate (Ambien) 5 mg HSPRN PRN ORAL Insomnia 07/22/20 22:45 07/29/20 22:44 Allergies: Coded Allergies: No Known Allergies (Unverified , 07/22/20) ROS Limited/Unobtainable: No Constitutional: Reports: no symptoms HEENT: Reports: no symptoms Cardiovascular: Reports: no symptoms Respiratory: Reports: no symptoms Gastrointestinal/Abdominal: Reports: no symptoms Genitourinary: Reports: no symptoms Neurologic/Psychiatric: Reports: no symptoms Subjective 74 YO M admitted with fall injury and back pain. Now compression fracture thoracic and lumbar vertebrae. Cover for Int Jesús - Dr Rothman Objective Last Vital Signs Date Time Temp Pulse Resp B/P (MAP) Pulse Ox O2 Delivery O2 Flow Rate FiO2 07/25/20 13:20 68 18 136/82 97 07/25/20 12:00 96.0 07/25/20 09:00 Room Air Laboratory Tests Test 07/25/20 07:25 White Blood Count 4.5 K/UL (4.8-10.8) L Red Blood Count 4.68 M/UL (4.70-6.10) L Hemoglobin 15.3 G/DL (14.2-18.0) Hematocrit 44.1 % (42.0-52.0) Mean Corpuscular Volume 94 FL (80-99) Mean Corpuscular Hemoglobin 32.7 PG (27.0-31.0) H Mean Corpuscular Hemoglobin Concent 34.8 G/DL (32.0-36.0) Red Cell Distribution Width 12.2 % (11.6-14.8) Platelet Count 133 K/UL (150-450) L Mean Platelet Volume 8.5 FL (6.5-10.1) Neutrophils (%) (Auto) % (45.0-75.0) Lymphocytes (%) (Auto) % (20.0-45.0) Monocytes (%) (Auto) % (1.0-10.0) Eosinophils (%) (Auto) % (0.0-3.0) Basophils (%) (Auto) % (0.0-2.0) Differential Total Cells Counted 100 Neutrophils % (Manual) 44 % (45-75) L Lymphocytes % (Manual) 32 % (20-45) Monocytes % (Manual) 21 % (1-10) H Eosinophils % (Manual) 2 % (0-3) Basophils % (Manual) 0 % (0-2) Myelocytes % 1 % (0-0) H Band Neutrophils 0 % (0-8) Platelet Estimate Adequate Platelet Morphology Normal Red Blood Cell Morphology Normal Sodium Level 137 MMOL/L (136-145) Potassium Level 3.7 MMOL/L (3.5-5.1) Chloride Level 102 MMOL/L (98-107) Carbon Dioxide Level 26 MMOL/L (21-32) Anion Gap 9 mmol/L (5-15) Blood Urea Nitrogen 16 mg/dL (7-18) Creatinine 1.5 MG/DL (0.55-1.30) H Estimat Glomerular Filtration Rate 45.9 mL/min (>60) Glucose Level 101 MG/DL (74-106) Hemoglobin A1c 5.4 % (4.3-6.0) Uric Acid 6.2 MG/DL (2.6-7.2) Calcium Level 8.5 MG/DL (8.5-10.1) Phosphorus Level 3.0 MG/DL (2.5-4.9) Magnesium Level 2.3 MG/DL (1.8-2.4) Total Bilirubin 0.7 MG/DL (0.2-1.0) Aspartate Amino Transf (AST/SGOT) 28 U/L (15-37) Alanine Aminotransferase (ALT/SGPT) 14 U/L (12-78) Alkaline Phosphatase 54 U/L (46-116) Total Creatine Kinase 174 U/L (26-308) Total Protein 6.7 G/DL (6.4-8.2) Albumin 3.6 G/DL (3.4-5.0) Globulin 3.1 g/dL Albumin/Globulin Ratio 1.2 (1.0-2.7) Triglycerides Level 89 MG/DL (30-150) Cholesterol Level 146 MG/DL (< 200) LDL Cholesterol 101 mg/dL (<100) H HDL Cholesterol 29 MG/DL (40-60) L Cholesterol/HDL Ratio 5.0 (3.3-4.4) H Microbiology Date/Time Source Procedure Growth Status 10/22/20 20:45 Urine,Clean Catch Urine Culture - Final Mixed Gram Positive Organism Complete Intake and Output 07/24/20 07/25/20 19:00 07:00 Intake Total 350 ml Output Total 200 ml Balance 150 ml Intake Oral 240 ml IV Total 110 ml Output Urine Total 200 ml # Voids 1 5 Objective PHYSICAL EXAMINATION: GENERAL: The patient is awake, responsive, no acute distress. HEAD AND NECK: Pupils are equal and reactive to light. Extraocular movements intact. Neck was supple. No JVD. LUNGS: Good air entry. No wheezing or rales. HEART: S1, S2. Regular rhythm. Distant heart sounds. No murmur or gallops. ABDOMEN: Soft, nondistended, nontender. Morbidly obese. Midline surgical scar was noted from the umbilical area down to the suprapubic area. ABDOMEN: Morbidly obese. EXTREMITIES: No cyanosis, clubbing, edema. Varicose veins in bilateral lower extremities. BACK: Paraspinal tenderness in the lower back area. NEUROLOGIC: Cranial nerves II to XII grossly intact. The patient is moving all the extremities. Gait was not assessed due to the patient's status. Assessment/Plan Assessment/Plan ASSESSMENT: 1. Status post fall with intractable back pain 2. compression fracture of the lumbar 3 and thoracic 7 & 8 vertebra 2. UTI. 3. Chronic kidney disease. 4. Morbid obesity. PLAN: 1. Admit the patient to medical floor. 2. Dr. Byrne= Pulmonary/critical care 3. Infectious disease consultation=Dr. Virgen. 4. antibiotic = Rocephin. 5. Code status=full code. 6. DVT prophylaxis=heparin subcu. 7. renal ultrasound=essentially normal 8. pain control. Shai Zimmer MD Jul 25, 2020 13:41
[2020-07-25] MEDS: cefTRIAXone 1 GM in D5W 55 ML IVPB SCH (14:42)
[2020-07-25 16:00] VITALS: BP 148/67
--- NOTE | 2020-07-25 16:15 | Consultation ---
DATE OF CONSULTATION: 07/25/2020 PAIN MANAGEMENT CONSULTATION CONSULTING PHYSICIAN: David Potter M.D. REFERRING PHYSICIAN: Jaclyn Byrne MD. PHYSICIAN ACADEMIC SUPPORT ASSISTANT: Erin Currie CHIEF COMPLAINT: Back pain. HISTORY OF PRESENT ILLNESS: This is a 74-year-old male, who is being seen on the Med/Surg floor of [facility] for initial pain management consultation. The patient was admitted under the care of Dr. Rothman and Dr. Byrne after a fall at [facility] complaining of severe back pain, increased with movement and decreased with rest. At this time, he is comfortable. CT scan of the lumbar spine was performed upon admission showing mild wedge compression fractures at T7-T8 as well as L3, which CT scan reports possibly are old fractures. At this time, the patient is in the bed. He was started on morphine 2 mg IV, however, has not requested and is not complaining of any pain. He is comfortable. We were consulted so the patient would have adequate pain control here in the hospital. PAST MEDICAL HISTORY: Dementia. PAST SURGICAL HISTORY: Abdominal surgery. SOCIAL HISTORY: No known smoking tobacco, drinking alcohol, or IV drug abuse. ALLERGIES: No known drug allergies. MEDICATIONS: No medication as outpatient noted. REVIEW OF SYSTEMS: Unable to obtain due to the patient's mental status. PHYSICAL EXAMINATION: VITAL SIGNS: Blood pressure 130/80, heart rate 63, oxygen saturation 96%, respiratory rate 20, temperature 97 degrees Fahrenheit. HEENT: PERRLA. NECK: Range of motion is full in all directions. No tenderness to paracervical muscles. No adenopathy. LUNGS: Decreased breath sounds bilaterally. HEART: S1 and S2, regular. ABDOMEN: Obese. BACK: Range of motion is decreased in flexion and extension. EXTREMITIES: Upper and lower extremity range of motion is full in all directions. No cyanosis. No clubbing. No edema. Sensory is intact. Reflexes are not obtainable. No adenopathy. ASSESSMENT AND PLAN: A 74-year-old male with back pain and thoracic and lumbar compression fracture. The patient will be discontinued off the morphine, started on Tylenol 650 mg tablets every 4 hours as needed for pain. The patient was discussed with Dr. Potter and Dr. Potter concurred. We will follow the patient. Thank you very much for the courtesy of this consultation. David Potter M.D. LENO Currie DR: JOSE JOB#: [id number] CC:
--- NOTE | 2020-07-25 19:14 | NUR ---
HAND-OFF: Report given to KRYSTYNA Campos. Patient on bed; IV line in place; endorsed to the incoming nurse that pateint risk for fall;
--- NOTE | 2020-07-25 19:30 | NUR ---
NURSE NOTES: Received patient awake, verbal, confused, follows simple command. Changed bed linens/bed made. Bed lowered, bed alarm on, call light within reach.
[2020-07-25 20:00] VITALS: BP 155/85
[2020-07-25] MEDS: Zolpidem 5mg tab ORAL PRN (20:37)
[2020-07-25] MEDS: Tamsulosin 0.4mg cap ORAL SCH (20:37)
[2020-07-26] MEDS: LORazepam Inj 2mg/ml 1ml IV PRN ×3 (00:18→23:29)
[2020-07-26 00:20] VITALS: BP 148/72
[2020-07-26 04:15] VITALS: BP 151/77
[2020-07-26 06:41] LABS: MEAN CORPUSCULAR VOLUME 93 FL (80-99); PLATELET COUNT 131 K/UL (150-450); RED BLOOD COUNT 4.96 M/UL (4.70-6.10); RED CELL DISTRIBUTION WIDTH 12.3 % (11.6-14.8); WHITE BLOOD COUNT 5.6 K/UL (4.8-10.8)
[2020-07-26 06:48] LABS: CALCIUM 8.7 MG/DL (8.5-10.1); CREATININE 1.4 MG/DL (0.55-1.30); POTASSIUM 3.7 MMOL/L (3.5-5.1)
--- NOTE | 2020-07-26 07:09 | NUR ---
HAND-OFF: Report given to Murray Rosas RN.
--- NOTE | 2020-07-26 07:10 | NUR ---
NURSE NOTES: Handoff received from Zakiya GREENWOOD. Patient is asleep, no signs of distress noted. Breathing is even and unlabored on room air. Left hand IV is intact and saline locked. Bed is low and locked, side rails up x2, call light is within reach. Bed alarm is on, fall precautions will be maintained.
[2020-07-26 08:00] VITALS: BP 148/75
--- NOTE | 2020-07-26 08:43 | General Progress Note ---
Subjective Date patient seen: Jul 26, 2020 Time patient seen: 07:00 - am Allergies: Coded Allergies: No Known Allergies (Unverified , 07/22/20) Subjective HISTORY OF PRESENT ILLNESS: This is a 74-year-old male, who is being seen on the Med/Surg floor of [facility]. No signs of pain or distress. In bed and no changes noted. REVIEW OF SYSTEMS: Unable to obtain due to the patient's mental status. Objective Last 24 Hour Vital Signs Date Time Temp Pulse Resp B/P (MAP) Pulse Ox O2 Delivery O2 Flow Rate FiO2 07/26/20 04:15 97.8 78 18 151/77 (101) 97 07/26/20 00:51 82 20 148/72 96 07/26/20 00:20 98.1 82 20 148/72 (97) 96 07/26/20 00:18 72 17 155/85 97 07/25/20 20:06 Room Air 07/25/20 20:00 97.4 72 17 155/85 (108) 97 07/25/20 16:00 98.3 74 18 148/67 (94) 100 07/25/20 13:50 68 18 136/82 97 07/25/20 13:20 68 18 136/82 97 07/25/20 12:00 96.0 68 18 136/82 (100) 97 07/25/20 09:00 Room Air Intake and Output 07/25/20 07/26/20 19:00 07:00 Intake Total 610 ml 480 ml Balance 610 ml 480 ml Intake Oral 480 ml IV Total 110 ml Other 500 ml # Voids 4 Laboratory Tests 07/26/20 06:10: White Blood Count 5.6, Red Blood Count 4.96, Hemoglobin 16.0, Hematocrit 46.0, Mean Corpuscular Volume 93, Mean Corpuscular Hemoglobin 32.2H, Mean Corpuscular Hemoglobin Concent 34.7, Red Cell Distribution Width 12.3, Platelet Count 131L, Mean Platelet Volume 8.2, Neutrophils (%) (Auto) , Lymphocytes (%) (Auto) , Monocytes (%) (Auto) , Eosinophils (%) (Auto) , Basophils (%) (Auto) , Neutrophils % (Manual) [Pending], Lymphocytes % (Manual) [Pending], Platelet Estimate [Pending], Platelet Morphology [Pending], Sodium Level 136, Potassium Level 3.7, Chloride Level 103, Carbon Dioxide Level 24, Anion Gap 9, Blood Urea Nitrogen 14, Creatinine 1.4H, Estimat Glomerular Filtration Rate 49.7, Glucose Level 107H, Calcium Level 8.7 Height (Feet): 5 Height (Inches): 8.00 Weight (Pounds): 210 Objective PHYSICAL EXAMINATION: LUNGS: Decreased breath sounds bilaterally. HEART: S1 and S2, regular. ABDOMEN: Obese. EXTREMITIES: No cyanosis. No clubbing. No edema. NEURO: No changes. Assessment/Plan Assessment/Plan: (1) Back pain (2) Thoracic and lumbar compression fractures Patient will continued on Tylenol D/w Dr. Potter and he concurred. Mathew Cornejo Jul 26, 2020 08:43
[2020-07-26] MEDS: Heparin 5000 units/ml inj SUBQ SCH ×3 (09:00→20:46)
[2020-07-26] MEDS: Docusate 100mg cap ORAL SCH ×3 (09:06→18:00)
[2020-07-26 12:00] VITALS: BP 140/88
--- NOTE | 2020-07-26 12:09 | Infectious Diseases Prog Note ---
Assessment/Plan Assessment: Probable UTI -u/a wbc tntc, nit neg, leuk +2; ucx +mixed organisms - renal US: No hydronephrosis or sonographically appreciable renal stone. Renal echogenicity within normal limits. Prostatomegaly Afebrile No leukocytosis SP mechanical fall Old compression fractures on imaging -CT head: no acute findings Plan: -Dc empiric Ceftriaxone #4 and monitor off abx -f/u cx -Monitor CBC/CMP, temperatures Thank you for consulting [facility]. Will continue to follow along with you. Discussed with RN. Subjective Allergies: Coded Allergies: No Known Allergies (Unverified , 07/22/20) Objective Last 24 Hour Vital Signs Date Time Temp Pulse Resp B/P (MAP) Pulse Ox O2 Delivery O2 Flow Rate FiO2 07/26/20 12:00 98.2 77 20 140/88 (105) 95 07/26/20 09:06 75 148/75 07/26/20 09:00 Room Air 07/26/20 08:00 97.4 75 18 148/75 (99) 98 07/26/20 04:15 97.8 78 18 151/77 (101) 97 07/26/20 00:51 82 20 148/72 96 07/26/20 00:20 98.1 82 20 148/72 (97) 96 07/26/20 00:18 72 17 155/85 97 07/25/20 20:06 Room Air 07/25/20 20:00 97.4 72 17 155/85 (108) 97 07/25/20 16:00 98.3 74 18 148/67 (94) 100 07/25/20 13:50 68 18 136/82 97 07/25/20 13:20 68 18 136/82 97 Height (Feet): 5 Height (Inches): 8.00 Weight (Pounds): 210 Laboratory Tests Test 07/26/20 06:10 White Blood Count 5.6 K/UL (4.8-10.8) Red Blood Count 4.96 M/UL (4.70-6.10) Hemoglobin 16.0 G/DL (14.2-18.0) Hematocrit 46.0 % (42.0-52.0) Mean Corpuscular Volume 93 FL (80-99) Mean Corpuscular Hemoglobin 32.2 PG (27.0-31.0) H Mean Corpuscular Hemoglobin Concent 34.7 G/DL (32.0-36.0) Red Cell Distribution Width 12.3 % (11.6-14.8) Platelet Count 131 K/UL (150-450) L Mean Platelet Volume 8.2 FL (6.5-10.1) Neutrophils (%) (Auto) % (45.0-75.0) Lymphocytes (%) (Auto) % (20.0-45.0) Monocytes (%) (Auto) % (1.0-10.0) Eosinophils (%) (Auto) % (0.0-3.0) Basophils (%) (Auto) % (0.0-2.0) Differential Total Cells Counted 100 Neutrophils % (Manual) 59 % (45-75) Lymphocytes % (Manual) 20 % (20-45) Monocytes % (Manual) 20 % (1-10) H Eosinophils % (Manual) 1 % (0-3) Basophils % (Manual) 0 % (0-2) Band Neutrophils 0 % (0-8) Platelet Estimate Decreased L Platelet Morphology Normal Red Blood Cell Morphology Normal Sodium Level 136 MMOL/L (136-145) Potassium Level 3.7 MMOL/L (3.5-5.1) Chloride Level 103 MMOL/L (98-107) Carbon Dioxide Level 24 MMOL/L (21-32) Anion Gap 9 mmol/L (5-15) Blood Urea Nitrogen 14 mg/dL (7-18) Creatinine 1.4 MG/DL (0.55-1.30) H Estimat Glomerular Filtration Rate 49.7 mL/min (>60) Glucose Level 107 MG/DL (74-106) H Calcium Level 8.7 MG/DL (8.5-10.1) Current Medications Medications (Trade) Dose Ordered Sig/Fabrizio Route PRN Reason Start Time Stop Time Status Last Admin Dose Admin Acetaminophen (Tylenol) 650 mg Q4H PRN ORAL Temp >100.5, mod pain 07/25/20 10:30 08/24/20 10:29 Amlodipine Besylate (Norvasc) 5 mg DAILY ORAL 07/25/20 09:00 08/24/20 08:59 07/26/20 09:06 Ceftriaxone Sodium 1 gm/ Dextrose 55 ml @ 110 mls/hr Q24H IVPB 07/23/20 15:00 07/30/20 14:59 07/25/20 14:42 Clonidine HCl (Catapres Tab) 0.1 mg Q4H PRN ORAL sbp > 160 07/24/20 09:41 10/22/20 09:40 07/24/20 21:26 Dextrose (Dextrose 50%) 25 ml Q30M PRN IV Hypoglycemia 07/22/20 22:45 10/20/20 22:44 Dextrose (Dextrose 50%) 50 ml Q30M PRN IV Hypoglycemia 07/22/20 22:45 10/20/20 22:44 Docusate Sodium (Colace) 100 mg THREE TIMES A DAY ORAL 07/25/20 09:00 08/24/20 08:59 07/26/20 09:06 Heparin Sodium (Porcine) (Heparin 5000 units/ml) 5,000 units EVERY 12 HOURS SUBQ 07/23/20 09:00 09/06/20 08:59 Lorazepam (Ativan 2mg/ml 1ml) 1 mg Q4H PRN IV For Anxiety 07/23/20 10:45 07/30/20 10:44 07/26/20 00:18 Ondansetron HCl (Zofran) 4 mg Q6H PRN IVP Nausea & Vomiting 07/22/20 22:45 08/21/20 22:44 Pantoprazole (Protonix) 40 mg EVERY 12 HOURS ORAL 07/24/20 21:00 08/23/20 20:59 07/26/20 09:06 Polyethylene Glycol (Miralax) 17 gm HSPRN PRN ORAL Constipation 07/22/20 22:45 08/21/20 22:44 Tamsulosin HCl (Flomax) 0.4 mg BEDTIME ORAL 07/24/20 21:00 08/23/20 20:59 07/25/20 20:37 Zolpidem Tartrate (Ambien) 5 mg HSPRN PRN ORAL Insomnia 07/22/20 22:45 07/29/20 22:44 07/25/20 20:37 Lindy Virgen M.D. Jul 26, 2020 12:09
--- NOTE | 2020-07-26 12:20 | Nephrology Progress Note ---
Assessment/Plan Problem List: (1) Renal failure (ARF), acute on chronic (2) BPH (benign prostatic hyperplasia) (3) UTI (urinary tract infection) Assessment This 74-year-old patient presents with mechanical fall And serum creatinine of 1.4 which is ANGI versus CKD Possible UTI Old compression fracture, compression fracture L3 Hypertension Previous abdominal surgery Enlarged prostate Proteinuria Plan Stable from renal standpoint of view Pain management Avoid nephrotoxic's Start Norvasc, keep the the blood pressure in check Start Flomax Monitor renal parameters Urine studies Review renal ultrasound , no hydronephrosis Fall precautions Per orders Subjective ROS Limited/Unobtainable: No Constitutional: Reports: malaise Objective Objective Last 24 Hour Vital Signs Date Time Temp Pulse Resp B/P (MAP) Pulse Ox O2 Delivery O2 Flow Rate FiO2 07/26/20 12:00 98.2 77 20 140/88 (105) 95 07/26/20 09:06 75 148/75 07/26/20 09:00 Room Air 07/26/20 08:00 97.4 75 18 148/75 (99) 98 07/26/20 04:15 97.8 78 18 151/77 (101) 97 07/26/20 00:51 82 20 148/72 96 07/26/20 00:20 98.1 82 20 148/72 (97) 96 07/26/20 00:18 72 17 155/85 97 07/25/20 20:06 Room Air 07/25/20 20:00 97.4 72 17 155/85 (108) 97 07/25/20 16:00 98.3 74 18 148/67 (94) 100 07/25/20 13:50 68 18 136/82 97 07/25/20 13:20 68 18 136/82 97 Intake and Output 07/25/20 07/26/20 19:00 07:00 Intake Total 610 ml 480 ml Balance 610 ml 480 ml Intake Oral 480 ml IV Total 110 ml Other 500 ml # Voids 4 Current Medications Medications (Trade) Dose Ordered Sig/Fabrizio Route PRN Reason Start Time Stop Time Status Last Admin Dose Admin Acetaminophen (Tylenol) 650 mg Q4H PRN ORAL Temp >100.5, mod pain 07/25/20 10:30 08/24/20 10:29 Amlodipine Besylate (Norvasc) 5 mg DAILY ORAL 07/25/20 09:00 08/24/20 08:59 07/26/20 09:06 Clonidine HCl (Catapres Tab) 0.1 mg Q4H PRN ORAL sbp > 160 07/24/20 09:41 10/22/20 09:40 07/24/20 21:26 Dextrose (Dextrose 50%) 25 ml Q30M PRN IV Hypoglycemia 07/22/20 22:45 10/20/20 22:44 Dextrose (Dextrose 50%) 50 ml Q30M PRN IV Hypoglycemia 07/22/20 22:45 10/20/20 22:44 Docusate Sodium (Colace) 100 mg THREE TIMES A DAY ORAL 07/25/20 09:00 08/24/20 08:59 07/26/20 09:06 Heparin Sodium (Porcine) (Heparin 5000 units/ml) 5,000 units EVERY 12 HOURS SUBQ 07/23/20 09:00 09/06/20 08:59 Lorazepam (Ativan 2mg/ml 1ml) 1 mg Q4H PRN IV For Anxiety 07/23/20 10:45 07/30/20 10:44 07/26/20 00:18 Ondansetron HCl (Zofran) 4 mg Q6H PRN IVP Nausea & Vomiting 07/22/20 22:45 08/21/20 22:44 Pantoprazole (Protonix) 40 mg EVERY 12 HOURS ORAL 07/24/20 21:00 08/23/20 20:59 07/26/20 09:06 Polyethylene Glycol (Miralax) 17 gm HSPRN PRN ORAL Constipation 07/22/20 22:45 08/21/20 22:44 Tamsulosin HCl (Flomax) 0.4 mg BEDTIME ORAL 07/24/20 21:00 08/23/20 20:59 07/25/20 20:37 Zolpidem Tartrate (Ambien) 5 mg HSPRN PRN ORAL Insomnia 07/22/20 22:45 07/29/20 22:44 07/25/20 20:37 Laboratory Tests 07/26/20 06:10: White Blood Count 5.6, Red Blood Count 4.96, Hemoglobin 16.0, Hematocrit 46.0, Mean Corpuscular Volume 93, Mean Corpuscular Hemoglobin 32.2H, Mean Corpuscular Hemoglobin Concent 34.7, Red Cell Distribution Width 12.3, Platelet Count 131L, Mean Platelet Volume 8.2, Neutrophils (%) (Auto) , Lymphocytes (%) (Auto) , Monocytes (%) (Auto) , Eosinophils (%) (Auto) , Basophils (%) (Auto) , Differential Total Cells Counted 100, Neutrophils % (Manual) 59, Lymphocytes % (Manual) 20, Monocytes % (Manual) 20H, Eosinophils % (Manual) 1, Basophils % (Manual) 0, Band Neutrophils 0, Platelet Estimate DecreasedL, Platelet Morphology Normal, Red Blood Cell Morphology Normal, Sodium Level 136, Potassium Level 3.7, Chloride Level 103, Carbon Dioxide Level 24, Anion Gap 9, Blood Urea Nitrogen 14, Creatinine 1.4H, Estimat Glomerular Filtration Rate 49.7, Glucose Level 107H, Calcium Level 8.7 Height (Feet): 5 Height (Inches): 8.00 Weight (Pounds): 210 General Appearance: no apparent distress Respiratory/Chest: decreased breath sounds Abdomen: soft Objective No change Gelacio Mata MD Jul 26, 2020 12:20
--- NOTE | 2020-07-26 12:42 | NUR ---
Social Work Patients friend (and neighbor), Lizeth Gonzales ([phone]) returned Giovanna SW call, expressing concerns that patient cannot return his home, where he was living in an independent living home ([facility] was notified due to unkept and unsafe environment for patient). P.T and this SW both recommend SNF placement upon discharge (patient is currently confused as well). Lizeth aware and would like to be notified when patient is discharged, while Lizeth plans to apply for Conservatorship (does not believe patient has any family). Public Guardian contact information provided to Lizeth, who will investigate for Lizeth to become patients legal representation.
--- NOTE | 2020-07-26 13:51 | NUR ---
RADIOLOGY DEPT., CHEST X-RAY DONE.-P.DYE
--- NOTE | 2020-07-26 14:07 | Pulmonology Progress Note ---
Subjective ROS Limited/Unobtainable: No Interval Events: doing better Allergies: Coded Allergies: No Known Allergies (Unverified , 07/22/20) Objective Last 24 Hour Vital Signs Date Time Temp Pulse Resp B/P (MAP) Pulse Ox O2 Delivery O2 Flow Rate FiO2 07/26/20 12:00 98.2 77 20 140/88 (105) 95 07/26/20 09:06 75 148/75 07/26/20 09:00 Room Air 07/26/20 08:00 97.4 75 18 148/75 (99) 98 07/26/20 04:15 97.8 78 18 151/77 (101) 97 07/26/20 00:51 82 20 148/72 96 07/26/20 00:20 98.1 82 20 148/72 (97) 96 07/26/20 00:18 72 17 155/85 97 07/25/20 20:06 Room Air 07/25/20 20:00 97.4 72 17 155/85 (108) 97 07/25/20 16:00 98.3 74 18 148/67 (94) 100 Intake and Output 07/25/20 07/26/20 19:00 07:00 Intake Total 610 ml 480 ml Balance 610 ml 480 ml Intake Oral 480 ml IV Total 110 ml Other 500 ml # Voids 4 General Appearance: WD/WN HEENT: normocephalic, atraumatic Respiratory: chest wall non-tender, lungs clear, normal breath sounds Cardiovascular: normal peripheral pulses, normal rate Abdomen: normal bowel sounds, no organomegaly, other - Midline surgical scar Genitourinary: normal external genitalia Extremities: no cyanosis, other - varicose venins BLE Skin: no rash Neurologic: 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 grossly normal Lymphatic: no neck adenopathy Laboratory Tests 07/26/20 06:10: White Blood Count 5.6, Red Blood Count 4.96, Hemoglobin 16.0, Hematocrit 46.0, Mean Corpuscular Volume 93, Mean Corpuscular Hemoglobin 32.2H, Mean Corpuscular Hemoglobin Concent 34.7, Red Cell Distribution Width 12.3, Platelet Count 131L, Mean Platelet Volume 8.2, Neutrophils (%) (Auto) , Lymphocytes (%) (Auto) , Monocytes (%) (Auto) , Eosinophils (%) (Auto) , Basophils (%) (Auto) , Differential Total Cells Counted 100, Neutrophils % (Manual) 59, Lymphocytes % (Manual) 20, Monocytes % (Manual) 20H, Eosinophils % (Manual) 1, Basophils % (Manual) 0, Band Neutrophils 0, Platelet Estimate DecreasedL, Platelet Morphology Normal, Red Blood Cell Morphology Normal, Sodium Level 136, Potassium Level 3.7, Chloride Level 103, Carbon Dioxide Level 24, Anion Gap 9, Blood Urea Nitrogen 14, Creatinine 1.4H, Estimat Glomerular Filtration Rate 49.7, Glucose Level 107H, Calcium Level 8.7 Current Medications Medications (Trade) Dose Ordered Sig/Fabrizio Route PRN Reason Start Time Stop Time Status Last Admin Dose Admin Acetaminophen (Tylenol) 650 mg Q4H PRN ORAL Temp >100.5, mod pain 07/25/20 10:30 08/24/20 10:29 Amlodipine Besylate (Norvasc) 5 mg DAILY ORAL 07/25/20 09:00 08/24/20 08:59 07/26/20 09:06 Clonidine HCl (Catapres Tab) 0.1 mg Q4H PRN ORAL sbp > 160 07/24/20 09:41 10/22/20 09:40 07/24/20 21:26 Dextrose (Dextrose 50%) 25 ml Q30M PRN IV Hypoglycemia 07/22/20 22:45 10/20/20 22:44 Dextrose (Dextrose 50%) 50 ml Q30M PRN IV Hypoglycemia 07/22/20 22:45 10/20/20 22:44 Docusate Sodium (Colace) 100 mg THREE TIMES A DAY ORAL 07/25/20 09:00 08/24/20 08:59 07/26/20 12:55 Heparin Sodium (Porcine) (Heparin 5000 units/ml) 5,000 units EVERY 12 HOURS SUBQ 07/23/20 09:00 09/06/20 08:59 Lorazepam (Ativan 2mg/ml 1ml) 1 mg Q4H PRN IV For Anxiety 07/23/20 10:45 07/30/20 10:44 07/26/20 00:18 Ondansetron HCl (Zofran) 4 mg Q6H PRN IVP Nausea & Vomiting 07/22/20 22:45 08/21/20 22:44 Pantoprazole (Protonix) 40 mg EVERY 12 HOURS ORAL 07/24/20 21:00 08/23/20 20:59 07/26/20 09:06 Polyethylene Glycol (Miralax) 17 gm HSPRN PRN ORAL Constipation 07/22/20 22:45 08/21/20 22:44 Tamsulosin HCl (Flomax) 0.4 mg BEDTIME ORAL 07/24/20 21:00 08/23/20 20:59 07/25/20 20:37 Zolpidem Tartrate (Ambien) 5 mg HSPRN PRN ORAL Insomnia 07/22/20 22:45 07/29/20 22:44 07/25/20 20:37 Assessment/Plan Problems: (1) Compression fracture of L3 vertebra (2) Intractable pain (3) Social isolation (4) Impaired mobility and ADLs (5) No significant past medical history Assessment/Plan social service note appreciated pt needs to go to a assisted symptomatic treatment Pain management pt/ot dvt prophylaxis. Jaclyn Byrne MD Jul 26, 2020 14:07
[2020-07-26] MEDS ORDERED: NORVASC5 MG ORAL (14:08)
[2020-07-26] MEDS ORDERED: PANTOPRAZOLE SO40 MG ORAL (14:08)
[2020-07-26] MEDS ORDERED: FLOMAX0.4 MG ORAL (14:08)
[2020-07-26] MEDS ORDERED: AMBIEN5 MG ORAL (14:08)
--- NOTE | 2020-07-26 14:13 | Diagnostic Imaging Report ---
Indication: Shortness of breath Technique: One view of the chest Comparison: none Findings: Heart size is upper limits of normal. The lungs and pleural spaces are clear. The aorta is tortuous. Impression: No acute process
[2020-07-26 16:00] VITALS: BP 151/77
--- NOTE | 2020-07-26 17:22 | NUR ---
CASE MANAGEMENT:REVIEW SI;THORACIC AND LUMBAR COMPRESSION FX. HTN. 98.2 82 20 162/91 95% ON RA CR 1.4 IS;NORVASC PO QD PROTONIX PO Q12 HEPARIN SUBQ Q12 MED SURG STATUS DCP;FROM HOME PLAN; SNF PLACEMENT
--- NOTE | 2020-07-26 19:10 | Internal Med Progress Note ---
Subjective Date of Service: Jul 26, 2020 Physician Name Shai Zimmer Attending Physician Andrés Rothman MD Current Medications Medications (Trade) Dose Ordered Sig/Fabrizio Route PRN Reason Start Time Stop Time Status Last Admin Dose Admin Acetaminophen (Tylenol) 650 mg Q4H PRN ORAL Temp >100.5, mod pain 07/25/20 10:30 08/24/20 10:29 Amlodipine Besylate (Norvasc) 5 mg DAILY ORAL 07/25/20 09:00 08/24/20 08:59 07/26/20 09:06 Clonidine HCl (Catapres Tab) 0.1 mg Q4H PRN ORAL sbp > 160 07/24/20 09:41 10/22/20 09:40 07/24/20 21:26 Dextrose (Dextrose 50%) 25 ml Q30M PRN IV Hypoglycemia 07/22/20 22:45 10/20/20 22:44 Dextrose (Dextrose 50%) 50 ml Q30M PRN IV Hypoglycemia 07/22/20 22:45 10/20/20 22:44 Docusate Sodium (Colace) 100 mg THREE TIMES A DAY ORAL 07/25/20 09:00 08/24/20 08:59 07/26/20 12:55 Heparin Sodium (Porcine) (Heparin 5000 units/ml) 5,000 units EVERY 12 HOURS SUBQ 07/23/20 09:00 09/06/20 08:59 Lorazepam (Ativan 2mg/ml 1ml) 1 mg Q4H PRN IV For Anxiety 07/23/20 10:45 07/30/20 10:44 07/26/20 15:52 Ondansetron HCl (Zofran) 4 mg Q6H PRN IVP Nausea & Vomiting 07/22/20 22:45 08/21/20 22:44 Pantoprazole (Protonix) 40 mg EVERY 12 HOURS ORAL 07/24/20 21:00 08/23/20 20:59 07/26/20 09:06 Polyethylene Glycol (Miralax) 17 gm HSPRN PRN ORAL Constipation 07/22/20 22:45 08/21/20 22:44 Tamsulosin HCl (Flomax) 0.4 mg BEDTIME ORAL 07/24/20 21:00 08/23/20 20:59 07/25/20 20:37 Zolpidem Tartrate (Ambien) 5 mg HSPRN PRN ORAL Insomnia 07/22/20 22:45 07/29/20 22:44 07/25/20 20:37 Allergies: Coded Allergies: No Known Allergies (Unverified , 07/22/20) ROS Limited/Unobtainable: No Constitutional: Reports: no symptoms HEENT: Reports: no symptoms Cardiovascular: Reports: no symptoms Respiratory: Reports: no symptoms Gastrointestinal/Abdominal: Reports: no symptoms Genitourinary: Reports: no symptoms Neurologic/Psychiatric: Reports: no symptoms Subjective 74 YO M admitted with fall injury and back pain. Now compression fracture thoracic and lumbar vertebrae. Cover for Int Jesús - Dr Rothman Objective Last Vital Signs Date Time Temp Pulse Resp B/P (MAP) Pulse Ox O2 Delivery O2 Flow Rate FiO2 07/26/20 16:00 97.6 82 20 151/77 (101) 97 07/26/20 09:00 Room Air Laboratory Tests Test 07/26/20 06:10 White Blood Count 5.6 K/UL (4.8-10.8) Red Blood Count 4.96 M/UL (4.70-6.10) Hemoglobin 16.0 G/DL (14.2-18.0) Hematocrit 46.0 % (42.0-52.0) Mean Corpuscular Volume 93 FL (80-99) Mean Corpuscular Hemoglobin 32.2 PG (27.0-31.0) H Mean Corpuscular Hemoglobin Concent 34.7 G/DL (32.0-36.0) Red Cell Distribution Width 12.3 % (11.6-14.8) Platelet Count 131 K/UL (150-450) L Mean Platelet Volume 8.2 FL (6.5-10.1) Neutrophils (%) (Auto) % (45.0-75.0) Lymphocytes (%) (Auto) % (20.0-45.0) Monocytes (%) (Auto) % (1.0-10.0) Eosinophils (%) (Auto) % (0.0-3.0) Basophils (%) (Auto) % (0.0-2.0) Differential Total Cells Counted 100 Neutrophils % (Manual) 59 % (45-75) Lymphocytes % (Manual) 20 % (20-45) Monocytes % (Manual) 20 % (1-10) H Eosinophils % (Manual) 1 % (0-3) Basophils % (Manual) 0 % (0-2) Band Neutrophils 0 % (0-8) Platelet Estimate Decreased L Platelet Morphology Normal Red Blood Cell Morphology Normal Sodium Level 136 MMOL/L (136-145) Potassium Level 3.7 MMOL/L (3.5-5.1) Chloride Level 103 MMOL/L (98-107) Carbon Dioxide Level 24 MMOL/L (21-32) Anion Gap 9 mmol/L (5-15) Blood Urea Nitrogen 14 mg/dL (7-18) Creatinine 1.4 MG/DL (0.55-1.30) H Estimat Glomerular Filtration Rate 49.7 mL/min (>60) Glucose Level 107 MG/DL (74-106) H Calcium Level 8.7 MG/DL (8.5-10.1) Intake and Output 07/25/20 07/26/20 19:00 07:00 Intake Total 610 ml 480 ml Balance 610 ml 480 ml Intake Oral 480 ml IV Total 110 ml Other 500 ml # Voids 4 Objective PHYSICAL EXAMINATION: GENERAL: The patient is awake, responsive, no acute distress. HEAD AND NECK: Pupils are equal and reactive to light. Extraocular movements intact. Neck was supple. No JVD. LUNGS: Good air entry. No wheezing or rales. HEART: S1, S2. Regular rhythm. Distant heart sounds. No murmur or gallops. ABDOMEN: Soft, nondistended, nontender. Morbidly obese. Midline surgical scar was noted from the umbilical area down to the suprapubic area. ABDOMEN: Morbidly obese. EXTREMITIES: No cyanosis, clubbing, edema. Varicose veins in bilateral lower extremities. BACK: Paraspinal tenderness in the lower back area. NEUROLOGIC: Cranial nerves II to XII grossly intact. The patient is moving all the extremities. Gait was not assessed due to the patient's status. Assessment/Plan Assessment/Plan ASSESSMENT: 1. Status post fall with intractable back pain 2. compression fracture of the lumbar 3 and thoracic 7 & 8 vertebra 2. UTI=mixed gram pos 3. Chronic kidney disease. 4. Morbid obesity. PLAN: 1. Admit the patient to medical floor. 2. Dr. Byrne= Pulmonary/critical care 3. Infectious disease consultation=Dr. Virgen. 4. antibiotic = S/P Rocephin. 5. Code status=full code. 6. DVT prophylaxis=heparin subcu. 7. renal ultrasound=essentially normal 8. pain control. Shai Zimmer MD Jul 26, 2020 19:10
--- NOTE | 2020-07-26 19:25 | NUR ---
NURSE HAND-OFF: Important Events on Shift:[discharge planning for snf] Patient Status: stable Diet: regular Pending Orders: Pending Results/Labs: Pending MD notification: Latest Vital Signs: Temperature 97.6 , Pulse 82 , B/P 151 /77 , Respiratory Rate 20 , O2 SAT 97 , Room Air, O2 Flow Rate . Vital Sign Comment: stable Latest Robertson Fall Score: 70 Fall Risk: High Risk Safety Measures: Call light Within Reach, Bed Alarm Zone 2, Side Rails Side Rails x2, Bed position Low and Locked. Fall Precautions: Yellow Socks Yellow Gown Door Sign Patient Fall Education Report given to Annie GREENWOOD.
--- NOTE | 2020-07-26 19:41 | NUR ---
NURSE NOTES: Patient is in bed, awake and confused; very restless. On room air with no signs of distress. IV intact and patent. Bed locked and in lowest position. Call light in reach. Bed alarm on. Will continue plan of care.
[2020-07-26 20:00] VITALS: BP 159/99
[2020-07-26] MEDS: Tamsulosin 0.4mg cap ORAL SCH (21:00)
--- NOTE | 2020-07-26 23:31 | NUR ---
NURSE NOTES: Patient noted to be very agitated, confused and restless; observed on both knees trying to reach out of bed for bedside cabinet, presenting fall risk. Reality reorientation and therapeutic communication unsuccessful. Administered Ativan PRN for agitation. Will continue to monitor for fall risk.
[2020-07-27] VITALS: BP 163/90
[2020-07-27] MEDS: Zolpidem 5mg tab ORAL PRN ×2 (00:19→20:21)
--- NOTE | 2020-07-27 06:17 | NUR ---
NURSE HAND-OFF: Important Events on Shift: Fall risk, DC planning Patient Status: Stable Diet: Regular Pending Orders: Discharge order Pending Results/Labs: CBC, BMP Pending MD notification: N/A Latest Vital Signs: Temperature 97.4 , Pulse 83 , B/P 163 /90 , Respiratory Rate 20 , O2 SAT 94 , Room Air, O2 Flow Rate . Vital Sign Comment: N/A Latest Robertson Fall Score: 70 Fall Risk: High Risk Safety Measures: Call light Within Reach, Bed Alarm Zone 2, Side Rails Side Rails x2, Bed position Low and Locked. Fall Precautions: Yellow Socks Yellow Gown Door Sign Patient Fall Education Addendum: 07/27/20 at 0736 by ABBIE MERINO RN Report given to KRYSTYNA Jade
--- NOTE | 2020-07-27 07:36 | NUR ---
NURSE NOTES: Received report from KRYSTYNA Valenica. Patient observed to be asleep, currently on room air and no s/sx of SOB/Distress. IV line located on RH gauge 24. Asymptomatic, inplace and intact. Bed placed on lowest and locked position, call light placed within reach and will continue to monitor.
[2020-07-27 08:00] VITALS: BP 141/83
--- NOTE | 2020-07-27 08:54 | General Progress Note ---
Subjective Date patient seen: Jul 27, 2020 Time patient seen: 07:15 - am Allergies: Coded Allergies: No Known Allergies (Unverified , 07/22/20) Subjective HISTORY OF PRESENT ILLNESS: This is a 74-year-old male, who is being seen on the Med[facility]Surg floor of [facility]. Patient is in bed showing no signs of pain or distress. REVIEW OF SYSTEMS: Unable to obtain due to the patient's mental status. Objective Last 24 Hour Vital Signs Date Time Temp Pulse Resp B/P (MAP) Pulse Ox O2 Delivery O2 Flow Rate FiO2 07/27/20 08:00 97.3 66 20 141/83 (102) 94 07/27/20 00:37 163/90 07/27/20 00:00 97.4 83 20 163/90 (114) 94 07/26/20 23:59 88 24 166/91 95 07/26/20 23:29 83 24 163/90 96 07/26/20 21:00 Room Air 07/26/20 20:00 97.3 87 20 159/99 (119) 96 07/26/20 16:00 97.6 82 20 151/77 (101) 97 07/26/20 15:52 82 20 162/91 97 07/26/20 12:00 98.2 77 20 140/88 (105) 95 07/26/20 09:06 75 148/75 07/26/20 09:00 Room Air Intake and Output 07/26/20 07/27/20 19:00 07:00 Intake Total 480 ml 240 ml Balance 480 ml 240 ml Intake Oral 480 ml 240 ml # Voids 3 2 Height (Feet): 5 Height (Inches): 8.00 Weight (Pounds): 210 Objective PHYSICAL EXAMINATION: LUNGS: Decreased breath sounds bilaterally. HEART: S1 and S2, regular. ABDOMEN: Obese. EXTREMITIES: No cyanosis. No clubbing. No edema. NEURO: No changes. Assessment/Plan Assessment/Plan: (1) Back pain (2) Thoracic and lumbar compression fractures Patient will continued on Tylenol D/w Dr. Potter and he concurred. Mathew Cornejo Jul 27, 2020 08:54
[2020-07-27] MEDS: Docusate 100mg cap ORAL SCH ×3 (09:02→17:35)
--- NOTE | 2020-07-27 09:30 | NUR ---
PT NOTE Attempted to see patient for PT treatment. Patient asleep, per Kalie RN patient was medicated during the night with Ativan and Ambien. Will re-attempt later as schedule permits.
--- NOTE | 2020-07-27 09:37 | Nephrology Progress Note ---
Assessment/Plan Problem List: (1) Renal failure (ARF), acute on chronic (2) BPH (benign prostatic hyperplasia) (3) UTI (urinary tract infection) Assessment This 74-year-old patient presents with mechanical fall And serum creatinine of 1.4 which is ANGI versus CKD Possible UTI Old compression fracture, compression fracture L3 Hypertension Previous abdominal surgery Enlarged prostate Proteinuria Plan July 27: We will check labs tomorrow. Continue per consultants. Previously: Stable from renal standpoint of view Pain management Avoid nephrotoxic's Start Norvasc, keep the the blood pressure in check Start Flomax Monitor renal parameters Urine studies Review renal ultrasound , no hydronephrosis Fall precautions Per orders Subjective ROS Limited/Unobtainable: No Objective Objective Last 24 Hour Vital Signs Date Time Temp Pulse Resp B/P (MAP) Pulse Ox O2 Delivery O2 Flow Rate FiO2 07/27/20 09:02 66 141/83 07/27/20 08:00 97.3 66 20 141/83 (102) 94 07/27/20 00:37 163/90 07/27/20 00:00 97.4 83 20 163/90 (114) 94 07/26/20 23:59 88 24 166/91 95 07/26/20 23:29 83 24 163/90 96 07/26/20 21:00 Room Air 07/26/20 20:00 97.3 87 20 159/99 (119) 96 07/26/20 16:00 97.6 82 20 151/77 (101) 97 07/26/20 15:52 82 20 162/91 97 07/26/20 12:00 98.2 77 20 140/88 (105) 95 Intake and Output 07/26/20 07/27/20 19:00 07:00 Intake Total 480 ml 240 ml Balance 480 ml 240 ml Intake Oral 480 ml 240 ml # Voids 3 2 Current Medications Medications (Trade) Dose Ordered Sig/Fabrizio Route PRN Reason Start Time Stop Time Status Last Admin Dose Admin Acetaminophen (Tylenol) 650 mg Q4H PRN ORAL Temp >100.5, mod pain 07/25/20 10:30 08/24/20 10:29 07/26/20 20:58 Amlodipine Besylate (Norvasc) 5 mg DAILY ORAL 07/25/20 09:00 08/24/20 08:59 07/27/20 09:02 Clonidine HCl (Catapres Tab) 0.1 mg Q4H PRN ORAL sbp > 160 07/24/20 09:41 10/22/20 09:40 07/27/20 00:37 Dextrose (Dextrose 50%) 25 ml Q30M PRN IV Hypoglycemia 07/22/20 22:45 10/20/20 22:44 Dextrose (Dextrose 50%) 50 ml Q30M PRN IV Hypoglycemia 07/22/20 22:45 10/20/20 22:44 Docusate Sodium (Colace) 100 mg THREE TIMES A DAY ORAL 07/25/20 09:00 08/24/20 08:59 07/27/20 09:02 Heparin Sodium (Porcine) (Heparin 5000 units/ml) 5,000 units EVERY 12 HOURS SUBQ 07/23/20 09:00 09/06/20 08:59 Lorazepam (Ativan 2mg/ml 1ml) 1 mg Q4H PRN IV For Anxiety 07/23/20 10:45 07/30/20 10:44 07/26/20 23:29 Ondansetron HCl (Zofran) 4 mg Q6H PRN IVP Nausea & Vomiting 07/22/20 22:45 08/21/20 22:44 Pantoprazole (Protonix) 40 mg EVERY 12 HOURS ORAL 07/24/20 21:00 08/23/20 20:59 07/27/20 09:02 Polyethylene Glycol (Miralax) 17 gm HSPRN PRN ORAL Constipation 07/22/20 22:45 08/21/20 22:44 Tamsulosin HCl (Flomax) 0.4 mg BEDTIME ORAL 07/24/20 21:00 08/23/20 20:59 07/25/20 20:37 Zolpidem Tartrate (Ambien) 5 mg HSPRN PRN ORAL Insomnia 07/22/20 22:45 07/29/20 22:44 07/27/20 00:19 No blood drawn today Height (Feet): 5 Height (Inches): 8.00 Weight (Pounds): 210 General Appearance: no apparent distress Cardiovascular: normal rate Respiratory/Chest: decreased breath sounds Abdomen: soft Objective No change Gelacio Mata MD Jul 27, 2020 09:37
--- NOTE | 2020-07-27 11:00 | NUR ---
NURSE NOTES: COVID 19 RAPID collection brought down to lab
--- NOTE | 2020-07-27 11:39 | NUR ---
NURSE NOTES: Received call from Cori (Laboratory), in regards to result of COVID rapid. Results relayed to Dr. Rothman.
--- NOTE | 2020-07-27 11:44 | NUR ---
NOTIFY DC TO [facility] SW MR. ZURITA [phone]
[2020-07-27 12:00] VITALS: BP 145/80
--- NOTE | 2020-07-27 12:43 | Infectious Diseases Prog Note ---
Assessment/Plan Assessment: COVID19 neg x1 -07/27 rapid COVID PCR neg -07/26 CXR: No acute process Pyuria -u/a wbc tntc, nit neg, leuk +2; ucx +mixed organisms - renal US: No hydronephrosis or sonographically appreciable renal stone. Renal echogenicity within normal limits. Prostatomegaly Afebrile No leukocytosis SP mechanical fall Old compression fractures on imaging -CT head: no acute findings Plan: -Cont to monitor off abx -07/26 SP Ceftriaxone #4 -f/u cx -Monitor CBC/CMP, temperatures Thank you for consulting [facility]. Will continue to follow along with you. Discussed with RN. Subjective Allergies: Coded Allergies: No Known Allergies (Unverified , 07/22/20) febrile no leukocytosis at RA Objective Last 24 Hour Vital Signs Date Time Temp Pulse Resp B/P (MAP) Pulse Ox O2 Delivery O2 Flow Rate FiO2 07/27/20 12:00 98.2 68 20 145/80 (101) 95 07/27/20 09:02 66 141/83 07/27/20 09:00 Room Air 07/27/20 08:00 97.3 66 20 141/83 (102) 94 07/27/20 00:37 163/90 07/27/20 00:00 97.4 83 20 163/90 (114) 94 07/26/20 23:59 88 24 166/91 95 07/26/20 23:29 83 24 163/90 96 07/26/20 21:00 Room Air 07/26/20 20:00 97.3 87 20 159/99 (119) 96 07/26/20 16:00 97.6 82 20 151/77 (101) 97 07/26/20 15:52 82 20 162/91 97 Height (Feet): 5 Height (Inches): 8.00 Weight (Pounds): 210 GENERAL: The patient is awake, responsive, no acute distress. HEAD AND NECK: Pupils are equal and reactive to light. Extraocular movements intact. Neck was supple. No JVD. LUNGS: Good air entry. No wheezing or rales. HEART: S1, S2. Regular rhythm. Distant heart sounds. No murmur or gallops. ABDOMEN: Soft, nondistended, nontender. Morbidly obese. Midline surgical scar was noted from the umbilical area down to the suprapubic area. ABDOMEN: Morbidly obese. EXTREMITIES: No cyanosis, clubbing, edema. Varicose veins in bilateral lower extremities. BACK: Paraspinal tenderness in the lower back area. Microbiology Date/Time Source Procedure Growth Status 07/27/20 11:00 Nasopharynx SARS-CoV-2 RdRp Gene Assay - Final Complete Current Medications Medications (Trade) Dose Ordered Sig/Fabrizio Route PRN Reason Start Time Stop Time Status Last Admin Dose Admin Acetaminophen (Tylenol) 650 mg Q4H PRN ORAL Temp >100.5, mod pain 07/25/20 10:30 08/24/20 10:29 07/26/20 20:58 Amlodipine Besylate (Norvasc) 5 mg DAILY ORAL 07/25/20 09:00 08/24/20 08:59 07/27/20 09:02 Clonidine HCl (Catapres Tab) 0.1 mg Q4H PRN ORAL sbp > 160 07/24/20 09:41 10/22/20 09:40 07/27/20 00:37 Dextrose (Dextrose 50%) 25 ml Q30M PRN IV Hypoglycemia 07/22/20 22:45 10/20/20 22:44 Dextrose (Dextrose 50%) 50 ml Q30M PRN IV Hypoglycemia 07/22/20 22:45 10/20/20 22:44 Docusate Sodium (Colace) 100 mg THREE TIMES A DAY ORAL 07/25/20 09:00 08/24/20 08:59 07/27/20 12:36 Heparin Sodium (Porcine) (Heparin 5000 units/ml) 5,000 units EVERY 12 HOURS SUBQ 07/23/20 09:00 09/06/20 08:59 Lorazepam (Ativan 2mg/ml 1ml) 1 mg Q4H PRN IV For Anxiety 07/23/20 10:45 07/30/20 10:44 07/26/20 23:29 Ondansetron HCl (Zofran) 4 mg Q6H PRN IVP Nausea & Vomiting 07/22/20 22:45 08/21/20 22:44 Pantoprazole (Protonix) 40 mg EVERY 12 HOURS ORAL 07/24/20 21:00 08/23/20 20:59 07/27/20 09:02 Polyethylene Glycol (Miralax) 17 gm HSPRN PRN ORAL Constipation 07/22/20 22:45 08/21/20 22:44 Tamsulosin HCl (Flomax) 0.4 mg BEDTIME ORAL 07/24/20 21:00 08/23/20 20:59 07/25/20 20:37 Zolpidem Tartrate (Ambien) 5 mg HSPRN PRN ORAL Insomnia 07/22/20 22:45 07/29/20 22:44 07/27/20 00:19 Lindy Virgen M.D. Jul 27, 2020 12:43
--- NOTE | 2020-07-27 13:35 | Pulmonology Progress Note ---
Subjective ROS Limited/Unobtainable: No Interval Events: doing better Allergies: Coded Allergies: No Known Allergies (Unverified , 07/22/20) Objective Last 24 Hour Vital Signs Date Time Temp Pulse Resp B/P (MAP) Pulse Ox O2 Delivery O2 Flow Rate FiO2 07/27/20 12:00 98.2 68 20 145/80 (101) 95 07/27/20 09:02 66 141/83 07/27/20 09:00 Room Air 07/27/20 08:00 97.3 66 20 141/83 (102) 94 07/27/20 00:37 163/90 07/27/20 00:00 97.4 83 20 163/90 (114) 94 07/26/20 23:59 88 24 166/91 95 07/26/20 23:29 83 24 163/90 96 07/26/20 21:00 Room Air 07/26/20 20:00 97.3 87 20 159/99 (119) 96 07/26/20 16:00 97.6 82 20 151/77 (101) 97 07/26/20 15:52 82 20 162/91 97 Intake and Output 07/26/20 07/27/20 19:00 07:00 Intake Total 480 ml 240 ml Balance 480 ml 240 ml Intake Oral 480 ml 240 ml # Voids 3 2 General Appearance: WD/WN HEENT: normocephalic, atraumatic Respiratory: chest wall non-tender, lungs clear, normal breath sounds Cardiovascular: normal peripheral pulses, normal rate Abdomen: normal bowel sounds, no organomegaly, other - Midline surgical scar Genitourinary: normal external genitalia Extremities: no cyanosis, other - varicose venins BLE Skin: no rash Neurologic: medical translator II-XII grossly normal Lymphatic: no neck adenopathy Microbiology Date/Time Source Procedure Growth Status 07/27/20 11:00 Nasopharynx SARS-CoV-2 RdRp Gene Assay - Final Complete Current Medications Medications (Trade) Dose Ordered Sig/Fabrizio Route PRN Reason Start Time Stop Time Status Last Admin Dose Admin Acetaminophen (Tylenol) 650 mg Q4H PRN ORAL Temp >100.5, mod pain 07/25/20 10:30 08/24/20 10:29 07/26/20 20:58 Amlodipine Besylate (Norvasc) 5 mg DAILY ORAL 07/25/20 09:00 08/24/20 08:59 07/27/20 09:02 Clonidine HCl (Catapres Tab) 0.1 mg Q4H PRN ORAL sbp > 160 07/24/20 09:41 10/22/20 09:40 07/27/20 00:37 Dextrose (Dextrose 50%) 25 ml Q30M PRN IV Hypoglycemia 07/22/20 22:45 10/20/20 22:44 Dextrose (Dextrose 50%) 50 ml Q30M PRN IV Hypoglycemia 07/22/20 22:45 10/20/20 22:44 Docusate Sodium (Colace) 100 mg THREE TIMES A DAY ORAL 07/25/20 09:00 08/24/20 08:59 07/27/20 12:36 Heparin Sodium (Porcine) (Heparin 5000 units/ml) 5,000 units EVERY 12 HOURS SUBQ 07/23/20 09:00 09/06/20 08:59 Lorazepam (Ativan 2mg/ml 1ml) 1 mg Q4H PRN IV For Anxiety 07/23/20 10:45 07/30/20 10:44 07/26/20 23:29 Ondansetron HCl (Zofran) 4 mg Q6H PRN IVP Nausea & Vomiting 07/22/20 22:45 08/21/20 22:44 Pantoprazole (Protonix) 40 mg EVERY 12 HOURS ORAL 07/24/20 21:00 08/23/20 20:59 07/27/20 09:02 Polyethylene Glycol (Miralax) 17 gm HSPRN PRN ORAL Constipation 07/22/20 22:45 08/21/20 22:44 Tamsulosin HCl (Flomax) 0.4 mg BEDTIME ORAL 07/24/20 21:00 08/23/20 20:59 07/25/20 20:37 Zolpidem Tartrate (Ambien) 5 mg HSPRN PRN ORAL Insomnia 07/22/20 22:45 07/29/20 22:44 07/27/20 00:19 Assessment/Plan Problems: (1) Compression fracture of L3 vertebra (2) Intractable pain (3) Social isolation (4) Impaired mobility and ADLs (5) No significant past medical history Assessment/Plan social service note appreciated pt needs to go to a senior care symptomatic treatment Pain management pt/ot dvt prophylaxis. dc planning in progress covid test negative Jaclyn Byrne MD Jul 27, 2020 13:35
[2020-07-27 16:00] VITALS: BP 157/82
--- NOTE | 2020-07-27 16:13 | NUR ---
*-*DISCHARGE PLANNED*-* PATIENT HAS BEEN REFERRED TO: PASTOR MENEZES P: [phone]
--- NOTE | 2020-07-27 17:00 | NUR ---
*-*DISCHARGE PLANNED*-* PATIENT HAS BEEN REFERRED TO: PASTOR MENEZES P: [phone] S/W [facility], WILL WORK ON INSURANCE, AND HAVE A BED BY 9:30 AM TOMORROW 07/28/2020.
--- NOTE | 2020-07-27 17:32 | Internal Med Progress Note ---
Subjective Date of Service: Jul 27, 2020 Physician Name Shai Zimmer Attending Physician Andrés Rothman MD Current Medications Medications (Trade) Dose Ordered Sig/Fabrizio Route PRN Reason Start Time Stop Time Status Last Admin Dose Admin Acetaminophen (Tylenol) 650 mg Q4H PRN ORAL Temp >100.5, mod pain 07/25/20 10:30 08/24/20 10:29 07/26/20 20:58 Amlodipine Besylate (Norvasc) 5 mg DAILY ORAL 07/25/20 09:00 08/24/20 08:59 07/27/20 09:02 Clonidine HCl (Catapres Tab) 0.1 mg Q4H PRN ORAL sbp > 160 07/24/20 09:41 10/22/20 09:40 07/27/20 00:37 Dextrose (Dextrose 50%) 25 ml Q30M PRN IV Hypoglycemia 07/22/20 22:45 10/20/20 22:44 Dextrose (Dextrose 50%) 50 ml Q30M PRN IV Hypoglycemia 07/22/20 22:45 10/20/20 22:44 Docusate Sodium (Colace) 100 mg THREE TIMES A DAY ORAL 07/25/20 09:00 08/24/20 08:59 07/27/20 12:36 Heparin Sodium (Porcine) (Heparin 5000 units/ml) 5,000 units EVERY 12 HOURS SUBQ 07/23/20 09:00 09/06/20 08:59 Lorazepam (Ativan 2mg/ml 1ml) 1 mg Q4H PRN IV For Anxiety 07/23/20 10:45 07/30/20 10:44 07/26/20 23:29 Ondansetron HCl (Zofran) 4 mg Q6H PRN IVP Nausea & Vomiting 07/22/20 22:45 08/21/20 22:44 Pantoprazole (Protonix) 40 mg EVERY 12 HOURS ORAL 07/24/20 21:00 08/23/20 20:59 07/27/20 09:02 Polyethylene Glycol (Miralax) 17 gm HSPRN PRN ORAL Constipation 07/22/20 22:45 08/21/20 22:44 Tamsulosin HCl (Flomax) 0.4 mg BEDTIME ORAL 07/24/20 21:00 08/23/20 20:59 07/25/20 20:37 Zolpidem Tartrate (Ambien) 5 mg HSPRN PRN ORAL Insomnia 07/22/20 22:45 07/29/20 22:44 07/27/20 00:19 Allergies: Coded Allergies: No Known Allergies (Unverified , 07/22/20) ROS Limited/Unobtainable: No Constitutional: Reports: no symptoms HEENT: Reports: no symptoms Cardiovascular: Reports: no symptoms Respiratory: Reports: no symptoms Gastrointestinal/Abdominal: Reports: no symptoms Genitourinary: Reports: no symptoms Neurologic/Psychiatric: Reports: no symptoms Subjective 74 YO M admitted with fall injury and back pain. Now compression fracture thoracic and lumbar vertebrae. Cover for Int Med - Dr Rothman Objective Last Vital Signs Date Time Temp Pulse Resp B/P (MAP) Pulse Ox O2 Delivery O2 Flow Rate FiO2 07/27/20 16:00 98.0 71 20 157/82 (107) 97 07/27/20 09:00 Room Air Microbiology Date/Time Source Procedure Growth Status 07/27/20 11:00 Nasopharynx SARS-CoV-2 RdRp Gene Assay - Final Complete Intake and Output 07/26/20 07/27/20 19:00 07:00 Intake Total 480 ml 240 ml Balance 480 ml 240 ml Intake Oral 480 ml 240 ml # Voids 3 2 Objective PHYSICAL EXAMINATION: GENERAL: The patient is awake, responsive, no acute distress. HEAD AND NECK: Pupils are equal and reactive to light. Extraocular movements intact. Neck was supple. No JVD. LUNGS: Good air entry. No wheezing or rales. HEART: S1, S2. Regular rhythm. Distant heart sounds. No murmur or gallops. ABDOMEN: Soft, nondistended, nontender. Morbidly obese. Midline surgical scar was noted from the umbilical area down to the suprapubic area. ABDOMEN: Morbidly obese. EXTREMITIES: No cyanosis, clubbing, edema. Varicose veins in bilateral lower extremities. BACK: Paraspinal tenderness in the lower back area. NEUROLOGIC: Cranial nerves II to XII grossly intact. The patient is moving all the extremities. Gait was not assessed due to the patient's status. Assessment/Plan Assessment/Plan ASSESSMENT: 1. Status post fall with intractable back pain 2. compression fracture of the lumbar 3 and thoracic 7 & 8 vertebra 2. UTI=mixed gram pos 3. Chronic kidney disease. 4. Morbid obesity. PLAN: 1. Admit the patient to medical floor. 2. Dr. Byrne= Pulmonary/critical care 3. Infectious disease consultation=Dr. Virgen. 4. antibiotic = S/P Rocephin. 5. Code status=full code. 6. DVT prophylaxis=heparin subcu. 7. renal ultrasound=essentially normal 8. pain control. Shai Zimmer MD Jul 27, 2020 17:32
--- NOTE | 2020-07-27 19:30 | NUR ---
NURSE NOTES: Pt. received from KRYSTYNA Jade. Pt. AAOx1, confused, on room air, breathing even and unlabored on room air, no indications of respiratory distress, no complaints of pain. IV noted right hand 24g intact. Pt. confused, undressing, and attempting to get out of bed despite being high fall risk. Pt. close to the nurses station, side rails x3 up, bed alarm active with high sensitivity, yellow gown and yellow socks replaced, and call light is in reach.
--- NOTE | 2020-07-27 19:32 | NUR ---
NURSE HAND-OFF: Important Events on Shift: COVID (-), D/C planning Patient Status: stable Diet: regular Pending Orders: n/a Pending Results/Labs:n/a Pending MD notification:n/a Latest Vital Signs: Temperature 98.0 , Pulse 71 , B/P 157 /82 , Respiratory Rate 20 , O2 SAT 97 , Room Air, O2 Flow Rate . Vital Sign Comment: stable Latest Robertson Fall Score: 70 Fall Risk: High Risk Safety Measures: Call light Within Reach, Bed Alarm Zone 2, Side Rails Side Rails x2, Bed position Low and Locked. Fall Precautions: Yellow Socks Yellow Gown Door Sign Patient Fall Education Report given to KRYSTYNA Taylor.
[2020-07-27 20:00] VITALS: BP 145/90
[2020-07-27] MEDS: Tamsulosin 0.4mg cap ORAL SCH (20:21)
[2020-07-27] MEDS: Heparin 5000 units/ml inj SUBQ SCH (20:21)
[2020-07-27] MEDS: LORazepam Inj 2mg/ml 1ml IV PRN (22:50)
[2020-07-28] VITALS: BP 121/63
--- NOTE | 2020-07-28 02:49 | NUR ---
NURSE NOTES: Pt. witnessed multiple times throughout the night attempting to climb out of bed. Pt. reoriented to really frequently, nursing staff monitoring pt. at the bedside, bed alarm active, and bed low and locked. Pt. removed newly placed right forearm IV. New IV access gained right AC 22g.
[2020-07-28] MEDS: LORazepam Inj 2mg/ml 1ml IV PRN (03:22)
[2020-07-28 04:00] VITALS: BP 162/97
--- NOTE | 2020-07-28 05:09 | NUR ---
NURSE NOTES: Pt. hypertensive 162/97. Attempted to administer PRN clonidine but pt. refusing to take medication. Pt. AAOx1, unable to comprehend risks vs benefits, despite attempts to explain reason for needed medication.
--- NOTE | 2020-07-28 06:47 | NUR ---
NURSE NOTES: Pt. continuously attempting to get out of bed, repositioned, perineal care provided and bed sheets changed.
--- NOTE | 2020-07-28 07:15 | NUR ---
NURSE HAND-OFF: Important Events on Shift:[]pt. attempting to get out of bed despite being high fall risk, IV placed right AC22g, pt. refusing PRN blood pressure medication Patient Status: []awake, confused Diet: [regular] Pending Orders: []na Pending Results/Labs:[na] Pending MD notification:[na] Latest Vital Signs: Temperature 97.8 , Pulse 79 , B/P 162 /97 , Respiratory Rate 16 , O2 SAT 98 , Room Air, O2 Flow Rate . Vital Sign Comment: []hypertensive Latest Robertson Fall Score: 70 Fall Risk: High Risk Safety Measures: Call light Within Reach, Bed Alarm Zone 1, Side Rails Side Rails x3, Bed position Low and Locked. Fall Precautions: Yellow Socks Yellow Gown Door Sign Patient Fall Education Report given to [KRYSTYNA Jade].
--- NOTE | 2020-07-28 07:50 | NUR ---
NURSE NOTES: Received report from KRYSTYNA Taylor. Patient observed to be awake, alert and oriented x1. Seen attempting to get out of bed multiple times, provided reminders to patient to stay in bed. Currently on room air, no s/sx of SOB/Distress, no c/o any pain or discomfort. Patient with IV located on RAC gauge 22, asymptomatic, inplace and intact. Bed placed on lowest position, call light placed within reach and will continue to monitor for any changes in condition.
[2020-07-28 08:00] VITALS: BP 132/81
--- NOTE | 2020-07-28 08:36 | General Progress Note ---
Subjective Date patient seen: Jul 28, 2020 Time patient seen: 07:15 - am Allergies: Coded Allergies: No Known Allergies (Unverified , 07/22/20) Subjective HISTORY OF PRESENT ILLNESS: This is a 74-year-old male, who is being seen on the Med/Surg floor of [facility]. Patient showing no signs of pain or distress. In bed resting. REVIEW OF SYSTEMS: Unable to obtain due to the patient's mental status. Objective Last 24 Hour Vital Signs Date Time Temp Pulse Resp B/P (MAP) Pulse Ox O2 Delivery O2 Flow Rate FiO2 07/28/20 08:00 97.3 79 19 132/81 (98) 96 07/28/20 04:00 97.8 79 16 162/97 (118) 98 07/28/20 03:52 79 16 162/97 98 07/28/20 03:22 73 16 121/63 100 07/28/20 00:00 98.0 73 16 121/63 (82) 100 07/27/20 23:20 73 16 121/63 100 07/27/20 22:50 71 20 145/90 97 07/27/20 21:00 Room Air 07/27/20 20:00 98.5 71 20 145/90 (108) 97 07/27/20 16:00 98.0 71 20 157/82 (107) 97 07/27/20 12:00 98.2 68 20 145/80 (101) 95 07/27/20 09:02 66 141/83 07/27/20 09:00 Room Air Intake and Output 07/27/20 07/28/20 19:00 07:00 Intake Total 360 ml Output Total 200 ml Balance 160 ml Intake Oral 360 ml Output Urine Total 200 ml # Voids 3 3 Height (Feet): 5 Height (Inches): 8.00 Weight (Pounds): 210 Objective PHYSICAL EXAMINATION: LUNGS: Decreased breath sounds bilaterally. HEART: S1 and S2, regular. ABDOMEN: Obese. EXTREMITIES: No cyanosis. No clubbing. No edema. NEURO: No changes. Assessment/Plan Assessment/Plan: (1) Back pain (2) Thoracic and lumbar compression fractures Patient will continued on Tylenol D/w Dr. Potter and he concurred. Mathew Cornejo Jul 28, 2020 08:36
[2020-07-28 08:46] LABS: HEMATOCRIT 48.7 % (42.0-52.0); HEMOGLOBIN 16.7 G/DL (14.2-18.0); MEAN CORPUSCULAR VOLUME 94 FL (80-99); PLATELET COUNT 145 K/UL (150-450); RED BLOOD COUNT 5.21 M/UL (4.70-6.10); RED CELL DISTRIBUTION WIDTH 12.3 % (11.6-14.8); WHITE BLOOD COUNT 4.8 K/UL (4.8-10.8)
[2020-07-28] MEDS: Docusate 100mg cap ORAL SCH ×2 (08:53→12:45)
[2020-07-28] MEDS: Heparin 5000 units/ml inj SUBQ SCH (08:54)
[2020-07-28 09:11] LABS: ALBUMIN 4.1 G/DL (3.4-5.0); ALBUMIN/GLOBULIN RATIO 1.2 (1.0-2.7); BILIRUBIN,TOTAL 0.7 MG/DL (0.2-1.0); CALCIUM 8.8 MG/DL (8.5-10.1); CREATININE 1.5 MG/DL (0.55-1.30); PHOSPHORUS 2.6 MG/DL (2.5-4.9); POTASSIUM 3.7 MMOL/L (3.5-5.1)
--- NOTE | 2020-07-28 10:28 | Pulmonology Progress Note ---
Subjective ROS Limited/Unobtainable: No Interval Events: doing better Constitutional: Reports: no symptoms HEENT: Repors: no symptoms Allergies: Coded Allergies: No Known Allergies (Unverified , 07/22/20) Objective Last 24 Hour Vital Signs Date Time Temp Pulse Resp B/P (MAP) Pulse Ox O2 Delivery O2 Flow Rate FiO2 07/28/20 09:00 Room Air 07/28/20 08:54 79 132/81 07/28/20 08:00 97.3 79 19 132/81 (98) 96 07/28/20 04:00 97.8 79 16 162/97 (118) 98 07/28/20 03:52 79 16 162/97 98 07/28/20 03:22 73 16 121/63 100 07/28/20 00:00 98.0 73 16 121/63 (82) 100 07/27/20 23:20 73 16 121/63 100 07/27/20 22:50 71 20 145/90 97 07/27/20 21:00 Room Air 07/27/20 20:00 98.5 71 20 145/90 (108) 97 07/27/20 16:00 98.0 71 20 157/82 (107) 97 07/27/20 12:00 98.2 68 20 145/80 (101) 95 Intake and Output 07/27/20 07/28/20 19:00 07:00 Intake Total 360 ml Output Total 200 ml Balance 160 ml Intake Oral 360 ml Output Urine Total 200 ml # Voids 3 3 General Appearance: WD/WN HEENT: normocephalic, atraumatic Respiratory: chest wall non-tender, lungs clear, normal breath sounds Cardiovascular: normal peripheral pulses, normal rate Abdomen: normal bowel sounds, no organomegaly, other - Midline surgical scar Genitourinary: normal external genitalia Extremities: no cyanosis, other - varicose venins BLE Skin: no rash Neurologic: dye and chemical coordinator II-XII grossly normal Lymphatic: no neck adenopathy Microbiology Date/Time Source Procedure Growth Status 07/27/20 11:00 Nasopharynx SARS-CoV-2 RdRp Gene Assay - Final Complete Laboratory Tests 07/28/20 08:00: White Blood Count 4.8, Red Blood Count 5.21, Hemoglobin 16.7, Hematocrit 48.7, Mean Corpuscular Volume 94, Mean Corpuscular Hemoglobin 32.0H, Mean Corpuscular Hemoglobin Concent 34.2, Red Cell Distribution Width 12.3, Platelet Count 145L, Mean Platelet Volume 8.6, Neutrophils (%) (Auto) , Lymphocytes (%) (Auto) , Monocytes (%) (Auto) , Eosinophils (%) (Auto) , Basophils (%) (Auto) , Differential Total Cells Counted 100, Neutrophils % (Manual) 58, Lymphocytes % (Manual) 17L, Monocytes % (Manual) 22H, Eosinophils % (Manual) 1, Basophils % (Manual) 0, Band Neutrophils 2, Platelet Estimate DecreasedL, Platelet Morphology Normal, Red Blood Cell Morphology Normal, Sodium Level 140, Potassium Level 3.7, Chloride Level 104, Carbon Dioxide Level 27, Anion Gap 9, Blood Urea Nitrogen 19H, Creatinine 1.5H, Estimat Glomerular Filtration Rate 45.9, Glucose Level 108H, Uric Acid 6.7, Calcium Level 8.8, Phosphorus Level 2.6, Magnesium Level 2.2, Total Bilirubin 0.7, Aspartate Amino Transf (AST/SGOT) 43H, Alanine Aminotransferase (ALT/SGPT) 42, Alkaline Phosphatase 67, Total Protein 7.5, Albumin 4.1, Globulin 3.4, Albumin/Globulin Ratio 1.2 Current Medications Medications (Trade) Dose Ordered Sig/Fabrizio Route PRN Reason Start Time Stop Time Status Last Admin Dose Admin Acetaminophen (Tylenol) 650 mg Q4H PRN ORAL Temp >100.5, mod pain 07/25/20 10:30 08/24/20 10:29 07/26/20 20:58 Amlodipine Besylate (Norvasc) 5 mg DAILY ORAL 07/25/20 09:00 08/24/20 08:59 07/28/20 08:54 Clonidine HCl (Catapres Tab) 0.1 mg Q4H PRN ORAL sbp > 160 07/24/20 09:41 10/22/20 09:40 07/27/20 00:37 Dextrose (Dextrose 50%) 25 ml Q30M PRN IV Hypoglycemia 07/22/20 22:45 10/20/20 22:44 Dextrose (Dextrose 50%) 50 ml Q30M PRN IV Hypoglycemia 07/22/20 22:45 10/20/20 22:44 Docusate Sodium (Colace) 100 mg THREE TIMES A DAY ORAL 07/25/20 09:00 08/24/20 08:59 07/28/20 08:53 Heparin Sodium (Porcine) (Heparin 5000 units/ml) 5,000 units EVERY 12 HOURS SUBQ 07/23/20 09:00 09/06/20 08:59 Lorazepam (Ativan 2mg/ml 1ml) 1 mg Q4H PRN IV For Anxiety 07/23/20 10:45 07/30/20 10:44 07/28/20 03:22 Ondansetron HCl (Zofran) 4 mg Q6H PRN IVP Nausea & Vomiting 07/22/20 22:45 08/21/20 22:44 Pantoprazole (Protonix) 40 mg EVERY 12 HOURS ORAL 07/24/20 21:00 08/23/20 20:59 07/28/20 08:53 Polyethylene Glycol (Miralax) 17 gm HSPRN PRN ORAL Constipation 07/22/20 22:45 08/21/20 22:44 07/27/20 20:21 Tamsulosin HCl (Flomax) 0.4 mg BEDTIME ORAL 07/24/20 21:00 08/23/20 20:59 07/27/20 20:21 Zolpidem Tartrate (Ambien) 5 mg HSPRN PRN ORAL Insomnia 07/22/20 22:45 07/29/20 22:44 07/27/20 20:21 Assessment/Plan Problems: (1) Compression fracture of L3 vertebra (2) Intractable pain (3) Social isolation (4) Impaired mobility and ADLs (5) No significant past medical history Assessment/Plan social service note appreciated pt needs to go to a shelter symptomatic treatment Pain management pt/ot dvt prophylaxis. dc planning in progress covid test negative aJclyn Byrne MD Jul 28, 2020 10:28
--- NOTE | 2020-07-28 10:44 | Nephrology Progress Note ---
Assessment/Plan Problem List: (1) Renal failure (ARF), acute on chronic (2) BPH (benign prostatic hyperplasia) (3) UTI (urinary tract infection) Assessment This 74-year-old patient presents with mechanical fall And serum creatinine of 1.4 which is ANGI versus CKD Possible UTI Old compression fracture, compression fracture L3 Hypertension Previous abdominal surgery Enlarged prostate Proteinuria Plan July 28: Serum creatinine 1.5. Oral intake unreliable. Will give D5W 500 cc bolus. Continue per consultants. July 27: We will check labs tomorrow. Continue per consultants. Previously: Stable from renal standpoint of view Pain management Avoid nephrotoxic's Start Norvasc, keep the the blood pressure in check Start Flomax Monitor renal parameters Urine studies Review renal ultrasound , no hydronephrosis Fall precautions Per orders Subjective ROS Limited/Unobtainable: No Constitutional: Reports: malaise, weakness Objective Objective Last 24 Hour Vital Signs Date Time Temp Pulse Resp B/P (MAP) Pulse Ox O2 Delivery O2 Flow Rate FiO2 07/28/20 09:00 Room Air 07/28/20 08:54 79 132/81 07/28/20 08:00 97.3 79 19 132/81 (98) 96 07/28/20 04:00 97.8 79 16 162/97 (118) 98 07/28/20 03:52 79 16 162/97 98 07/28/20 03:22 73 16 121/63 100 07/28/20 00:00 98.0 73 16 121/63 (82) 100 07/27/20 23:20 73 16 121/63 100 07/27/20 22:50 71 20 145/90 97 07/27/20 21:00 Room Air 07/27/20 20:00 98.5 71 20 145/90 (108) 97 07/27/20 16:00 98.0 71 20 157/82 (107) 97 07/27/20 12:00 98.2 68 20 145/80 (101) 95 Intake and Output 07/27/20 07/28/20 19:00 07:00 Intake Total 360 ml Output Total 200 ml Balance 160 ml Intake Oral 360 ml Output Urine Total 200 ml # Voids 3 3 Laboratory Tests 07/28/20 08:00: White Blood Count 4.8, Red Blood Count 5.21, Hemoglobin 16.7, Hematocrit 48.7, Mean Corpuscular Volume 94, Mean Corpuscular Hemoglobin 32.0H, Mean Corpuscular Hemoglobin Concent 34.2, Red Cell Distribution Width 12.3, Platelet Count 145L, Mean Platelet Volume 8.6, Neutrophils (%) (Auto) , Lymphocytes (%) (Auto) , Monocytes (%) (Auto) , Eosinophils (%) (Auto) , Basophils (%) (Auto) , Differential Total Cells Counted 100, Neutrophils % (Manual) 58, Lymphocytes % (Manual) 17L, Monocytes % (Manual) 22H, Eosinophils % (Manual) 1, Basophils % (Manual) 0, Band Neutrophils 2, Platelet Estimate DecreasedL, Platelet Morphology Normal, Red Blood Cell Morphology Normal, Sodium Level 140, Potassium Level 3.7, Chloride Level 104, Carbon Dioxide Level 27, Anion Gap 9, Blood Urea Nitrogen 19H, Creatinine 1.5H, Estimat Glomerular Filtration Rate 45.9, Glucose Level 108H, Uric Acid 6.7, Calcium Level 8.8, Phosphorus Level 2.6, Magnesium Level 2.2, Total Bilirubin 0.7, Aspartate Amino Transf (AST/SGOT) 43H, Alanine Aminotransferase (ALT/SGPT) 42, Alkaline Phosphatase 67, Total Protein 7.5, Albumin 4.1, Globulin 3.4, Albumin/Globulin Ratio 1.2 Height (Feet): 5 Height (Inches): 8.00 Weight (Pounds): 210 General Appearance: no apparent distress, confused Cardiovascular: normal rate Respiratory/Chest: decreased breath sounds Abdomen: soft, distended Objective No change Gelacio Mata MD Jul 28, 2020 10:44
--- NOTE | 2020-07-28 10:47 | NUR ---
HOUSE DESIGNER NOTE CALL MADE TO DONALDO AT [facility] P: [phone] FOLLOW UP TO BED ASSIGNMENT. DONALDO NOT AVAILABLE AT TIME OF CALL. WILL FOLLOW UP.
--- NOTE | 2020-07-28 10:50 | NUR ---
PT NOTE Attempted to see patient for PT treatment. Patient declining to participate with PT, appears somewhat sedated. Kalie RN notified of patient's status, will follow.
--- NOTE | 2020-07-28 11:59 | NUR ---
MATCHER [employer] NOTE SW informed of pt's DC to APS SW Mr. Dangelo [phone]. [facility] bed 21-A
[2020-07-28 12:00] VITALS: BP 111/60
--- NOTE | 2020-07-28 12:08 | Internal Med Progress Note ---
Subjective Date of Service: Jul 28, 2020 Physician Name Shai Zimmer Attending Physician Andrés Rothman MD Current Medications Medications (Trade) Dose Ordered Sig/Fabrizio Route PRN Reason Start Time Stop Time Status Last Admin Dose Admin Acetaminophen (Tylenol) 650 mg Q4H PRN ORAL Temp >100.5, mod pain 07/25/20 10:30 08/24/20 10:29 07/26/20 20:58 Amlodipine Besylate (Norvasc) 5 mg DAILY ORAL 07/25/20 09:00 08/24/20 08:59 07/28/20 08:54 Clonidine HCl (Catapres Tab) 0.1 mg Q4H PRN ORAL sbp > 160 07/24/20 09:41 10/22/20 09:40 07/27/20 00:37 Dextrose (Dextrose 50%) 25 ml Q30M PRN IV Hypoglycemia 07/22/20 22:45 10/20/20 22:44 Dextrose (Dextrose 50%) 50 ml Q30M PRN IV Hypoglycemia 07/22/20 22:45 10/20/20 22:44 Docusate Sodium (Colace) 100 mg THREE TIMES A DAY ORAL 07/25/20 09:00 08/24/20 08:59 07/28/20 08:53 Heparin Sodium (Porcine) (Heparin 5000 units/ml) 5,000 units EVERY 12 HOURS SUBQ 07/23/20 09:00 09/06/20 08:59 Lorazepam (Ativan 2mg/ml 1ml) 1 mg Q4H PRN IV For Anxiety 07/23/20 10:45 07/30/20 10:44 07/28/20 03:22 Ondansetron HCl (Zofran) 4 mg Q6H PRN IVP Nausea & Vomiting 07/22/20 22:45 08/21/20 22:44 Pantoprazole (Protonix) 40 mg EVERY 12 HOURS ORAL 07/24/20 21:00 08/23/20 20:59 07/28/20 08:53 Polyethylene Glycol (Miralax) 17 gm HSPRN PRN ORAL Constipation 07/22/20 22:45 08/21/20 22:44 07/27/20 20:21 Tamsulosin HCl (Flomax) 0.4 mg BEDTIME ORAL 07/24/20 21:00 08/23/20 20:59 07/27/20 20:21 Zolpidem Tartrate (Ambien) 5 mg HSPRN PRN ORAL Insomnia 07/22/20 22:45 07/29/20 22:44 07/27/20 20:21 Allergies: Coded Allergies: No Known Allergies (Unverified , 07/22/20) ROS Limited/Unobtainable: No Constitutional: Reports: no symptoms HEENT: Reports: no symptoms Cardiovascular: Reports: no symptoms Respiratory: Reports: no symptoms Gastrointestinal/Abdominal: Reports: no symptoms Genitourinary: Reports: no symptoms Neurologic/Psychiatric: Reports: no symptoms Subjective 74 YO M admitted with fall injury and back pain. Now compression fracture thoracic and lumbar vertebrae. Cover for Int Jesús - Dr Rothman Objective Last Vital Signs Date Time Temp Pulse Resp B/P (MAP) Pulse Ox O2 Delivery O2 Flow Rate FiO2 07/28/20 09:00 Room Air 07/28/20 08:54 79 132/81 07/28/20 08:00 97.3 19 96 Laboratory Tests Test 07/28/20 08:00 White Blood Count 4.8 K/UL (4.8-10.8) Red Blood Count 5.21 M/UL (4.70-6.10) Hemoglobin 16.7 G/DL (14.2-18.0) Hematocrit 48.7 % (42.0-52.0) Mean Corpuscular Volume 94 FL (80-99) Mean Corpuscular Hemoglobin 32.0 PG (27.0-31.0) H Mean Corpuscular Hemoglobin Concent 34.2 G/DL (32.0-36.0) Red Cell Distribution Width 12.3 % (11.6-14.8) Platelet Count 145 K/UL (150-450) L Mean Platelet Volume 8.6 FL (6.5-10.1) Neutrophils (%) (Auto) % (45.0-75.0) Lymphocytes (%) (Auto) % (20.0-45.0) Monocytes (%) (Auto) % (1.0-10.0) Eosinophils (%) (Auto) % (0.0-3.0) Basophils (%) (Auto) % (0.0-2.0) Differential Total Cells Counted 100 Neutrophils % (Manual) 58 % (45-75) Lymphocytes % (Manual) 17 % (20-45) L Monocytes % (Manual) 22 % (1-10) H Eosinophils % (Manual) 1 % (0-3) Basophils % (Manual) 0 % (0-2) Band Neutrophils 2 % (0-8) Platelet Estimate Decreased L Platelet Morphology Normal Red Blood Cell Morphology Normal Sodium Level 140 MMOL/L (136-145) Potassium Level 3.7 MMOL/L (3.5-5.1) Chloride Level 104 MMOL/L (98-107) Carbon Dioxide Level 27 MMOL/L (21-32) Anion Gap 9 mmol/L (5-15) Blood Urea Nitrogen 19 mg/dL (7-18) H Creatinine 1.5 MG/DL (0.55-1.30) H Estimat Glomerular Filtration Rate 45.9 mL/min (>60) Glucose Level 108 MG/DL (74-106) H Uric Acid 6.7 MG/DL (2.6-7.2) Calcium Level 8.8 MG/DL (8.5-10.1) Phosphorus Level 2.6 MG/DL (2.5-4.9) Magnesium Level 2.2 MG/DL (1.8-2.4) Total Bilirubin 0.7 MG/DL (0.2-1.0) Aspartate Amino Transf (AST/SGOT) 43 U/L (15-37) H Alanine Aminotransferase (ALT/SGPT) 42 U/L (12-78) Alkaline Phosphatase 67 U/L (46-116) Total Protein 7.5 G/DL (6.4-8.2) Albumin 4.1 G/DL (3.4-5.0) Globulin 3.4 g/dL Albumin/Globulin Ratio 1.2 (1.0-2.7) Microbiology Date/Time Source Procedure Growth Status 07/27/20 11:00 Nasopharynx SARS-CoV-2 RdRp Gene Assay - Final Complete Intake and Output 07/27/20 07/28/20 19:00 07:00 Intake Total 360 ml Output Total 200 ml Balance 160 ml Intake Oral 360 ml Output Urine Total 200 ml # Voids 3 3 Objective PHYSICAL EXAMINATION: GENERAL: The patient is awake, responsive, no acute distress. HEAD AND NECK: Pupils are equal and reactive to light. Extraocular movements intact. Neck was supple. No JVD. LUNGS: Good air entry. No wheezing or rales. HEART: S1, S2. Regular rhythm. Distant heart sounds. No murmur or gallops. ABDOMEN: Soft, nondistended, nontender. Morbidly obese. Midline surgical scar was noted from the umbilical area down to the suprapubic area. ABDOMEN: Morbidly obese. EXTREMITIES: No cyanosis, clubbing, edema. Varicose veins in bilateral lower extremities. BACK: Paraspinal tenderness in the lower back area. NEUROLOGIC: Cranial nerves II to XII grossly intact. The patient is moving all the extremities. Gait was not assessed due to the patient's status. Assessment/Plan Assessment/Plan ASSESSMENT: 1. Status post fall with intractable back pain 2. compression fracture of the lumbar 3 and thoracic 7 & 8 vertebra 2. UTI=mixed gram pos 3. Chronic kidney disease. 4. Morbid obesity. PLAN: 1. Admit the patient to medical floor. 2. Dr. Byrne= Pulmonary/critical care 3. Infectious disease consultation=Dr. Virgen. 4. antibiotic = S/P Rocephin. 5. Code status=full code. 6. DVT prophylaxis=heparin subcu. 7. renal ultrasound=essentially normal 8. pain control. 9. Discharge to [facility] when bed available Shai Zimmer MD Jul 28, 2020 12:08
--- NOTE | 2020-07-28 12:25 | NUR ---
NURSE NOTES: Report given to KRYSTYNA Cody at [facility]. Patient to be placed in room 21A
--- NOTE | 2020-07-28 12:41 | NUR ---
*-*DISCHARGE PLANNED*-* PATIENT HAS BEEN ACCEPTED AND WILL BE DISCHARGED TO: [facility] P: [phone] FOR NURSE TO NURSE REPORT ROOM# 21.[facility] TRAN[facility] SET FOR 12:45PM S/W UBALDO [id number].
--- NOTE | 2020-07-28 14:15 | NUR ---
NURSE NOTES: Patient to be discharged to [facility]. Report was given to KRYSTYNA Cody. Patient to be placed in room 21a. Patient observed to be awake, alert, and oriented x2. Picked up by 2 amb personnel via gurney. Currently on room air, no s/sx of SOB/Distress, no c/o any pain or discomfort. All discharge paperworks prepared and pt unable to sign. All patient belongings checked and accounted for. ID and IV site removed. Patient discharged in stable condition.
--- NOTE | 2020-07-29 16:26 | Discharge Summary ---
Discharge Summary Discharge Summary _ DATE OF ADMISSION: 07/22/2020 DATE OF DISCHARGE: 07/28/2020 DISCHARGED BY: Dr. Rothman REASON FOR ADMISSION: 74 years old male who denied any past medical history except abdominal surgery in the past , presented to the hospital from the [facility] home after he had a fall and sustained back injury. Patient complained about severe lower back pain , worse with movement. He denied bowel or urine incontinence. He denied chest pain or shortness of breath. No dysuria, frequency or hematuria. He denied saddle paresthesia or tingling numbness of lower extremity. Laboratory work-up revealed evidence of renal insufficiency . Urinalysis revealed pyuria and occasional bacteria. CT of the abdomen pelvis revealed diffuse fatty liver . No acute appendicitis or bowel obstruction. No free air. CT scan of the C- spine revealed no acute fracture or subluxation. Underlying degenerative disease of the cervical spine CT scan of the L-spine l spine revealed mild compression fracture of L3, difficult to assess the age, although suggested to be old given morphology. Degenerative disease with no other sites suspicious for fracture. CT scan of the T- spine revealed mild wedging of the T7 and T8 vertebral body , suggestive of likely old compression fracture, although the exact age was undetermined. Underlying degenerative disease. No subluxation. CT scan of the head showed chronic changes, but no acute intracranial hemorrhage or space-occupying lesion. In emergency department patient received analgesic and admitted for further management. CONSULTANTS: pulmonary/critical care Dr. Byrne ID specialist Dr. Virgen painter mirror Dr. Mata pain specialist Dr. Potter HOSPITAL COURSE: Patient admitted to medical surgical floor . Patient started on empiric antibiotic for possible UTI and IV hydration. Fall precautions precaution maintained. Patient was working with physical therapist. DVT prophylaxis provided. Pain management was addressed as per pain specialist recommendation. Urine culture revealed mixed gram-positive organisms. Patient remained afebrile , no leukocytosis . Antibiotic stopped. Renal ultrasound revealed no hydronephrosis or sonographically appreciable renal stones. Renal echogenicity within normal limits . Prostatomegaly. Renal parameters and electrolytes were closely monitored , electrolytes corrected as needed , and nephrotoxic were avoided. Blood pressure was significantly elevated . Blood pressure was managed with calcium channel tay and clonidine was on board as needed for blood pressure spikes. Blood pressure stabilized. Supportive care provided. Fall precaution maintained. Placement was arranged to long term facility. Patient was stable for transfer FINAL DIAGNOSES: Status post mechanical fall Renal failure , acute on chronic Hypertension with hypertensive urgency Intractable pain Thoracic and lumbar compression fracture Social isolation Possible UTI BPH DISCHARGE MEDICATIONS: See Medication Reconciliation list. DISCHARGE INSTRUCTIONS: Patient was discharged to the long term facility. Follow up with medical doctor at the facility. I have been assigned to dictate discharge summary for this account. I was not involved in the patient's management. Aida Howard NP Jul 29, 2020 16:26
== END 2020-07-28 14:15 | DRG 92 ==
LOC: EDBD 19:35 → EMR 21:39 → 4E 22:07 → EDBEDREQ 22:41 → 4E 07-23 10:25
DX: G89.21 Chronic pain due to trauma (principal); S22.000A Wedge compression fracture of unspecified thoracic vertebra, initial encounter for closed fracture; I12.0 Hypertensive chronic kidney disease with stage 5 chronic kidney disease or end stage renal disease; N39.0 Urinary tract infection, site not specified; N17.9 Acute kidney failure, unspecified; S27.9XXA Injury of unspecified intrathoracic organ, initial encounter; S22.060D Wedge compression fracture of T7-T8 vertebra, subsequent encounter for fracture with routine healing; S32.030D Wedge compression fracture of third lumbar vertebra, subsequent encounter for fracture with routine healing; N18.9 Chronic kidney disease, unspecified; E66.01 Morbid (severe) obesity due to excess calories; Z68.31 Body mass index [BMI] 31.0-31.9, adult; N40.0 Benign prostatic hyperplasia without lower urinary tract symptoms; I16.0 Hypertensive urgency; W19.XXXD Unspecified fall, subsequent encounter; F02.80 Dementia in other diseases classified elsewhere, unspecified severity, without behavioral disturbance, psychotic disturbance, mood disturbance, and anxiety; Z60.4 Social exclusion and rejection; Z74.09 Other reduced mobility; F03.90 Unspecified dementia, unspecified severity, without behavioral disturbance, psychotic disturbance, mood disturbance, and anxiety
CPT/HCPCS: 36415; 70450; 71045; 72125; 72128; 72131; 74176; 76770; 80048; 80053; 80061; 81001; 81003; 82043; 82248; 82550; 83036; 83735; 83935; 84100; 84300; 84443; 84550; 85007; 85025; 85610; 85730; 87086; 89050; 99285; U0002

== ENCOUNTER 2020-07-31 03:59 | Inpatient (IN) | payer MEDICARE ==
[~2020-07-31] VITALS: Ht 170.2 cm; Wt 77.6 kg
[~2020-07-31 03:59] MED LIST: AMBIEN5 MG ORAL; FLOMAX0.4 MG ORAL; NORVASC5 MG ORAL; PANTOPRAZOLE SO40 MG ORAL
[2020-07-31 04:00] VITALS: BP 129/73
--- NOTE | 2020-07-31 04:00 | NUR ---
ED Nurse Note: pt HAYLEY RA 829 frpm [facility], per EMS report pt was brought in for SI. Spoke with Carmela Tate RN at [facility] and per report pt woke up and started speaking different languages, appeared altered, was combative and uncooperative, was refusing medication. RN states that per facility facesheet pt was admitted for 2 days for muscle atrophy and weakness, there is no family contact information on file, RN unable to confirm if this is pt's neuro baseline since he has been asleep. Per [facility] records pt was admitted Jul 22 for cervical strain and discharged Jul 28. Pt is awake and alert oriented to name only, showing flight of ideas, imcomplete statements. Breathing even and unlabored, vital signs stable as documented.
--- NOTE | 2020-07-31 04:05 | NUR ---
ED Nurse Note: pt placed on a 5150 for DTS by [employer]. Pt's environment checked for safety and is free of harmful objects. pt currently not expressing thoughts of SI. Will continue to monitor.
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
[2020-07-31] MEDS ORDERED: LORazepam Inj 2mg/ml 1ml IV ONE (04:30)
--- NOTE | 2020-07-31 04:52 | NUR ---
ED Nurse Note: blood and urine sent to lab
[2020-07-31 05:01] LABS: APPEARANCE,URINE CLEAR; BILIRUBIN, URINE NEGATIVE (NEGATIVE); GLUCOSE, URINE (UA) NEGATIVE (NEGATIVE); KETONES,URINE 1+ (NEGATIVE); LEUKOCYTE ESTERASE ,URINE 1+ (NEGATIVE); NITRITE,URINE NEGATIVE (NEGATIVE); PH,URINE 5 (4.5-8.0); PROTEIN,URINE 2+ (NEGATIVE); UROBILINOGEN,URINE 1 MG/DL (0.0-1.0)
[2020-07-31 05:06] LABS: HEMATOCRIT 43.1 % (42.0-52.0); HEMOGLOBIN 15.5 G/DL (14.2-18.0); MEAN CORPUSCULAR VOLUME 93 FL (80-99); PLATELET COUNT 146 K/UL (150-450); RED BLOOD COUNT 4.62 M/UL (4.70-6.10); RED CELL DISTRIBUTION WIDTH 12.6 % (11.6-14.8); WHITE BLOOD COUNT 4.3 K/UL (4.8-10.8)
[2020-07-31 05:11] LABS: COLOR,URINE YELLOW
[2020-07-31 05:16] LABS: ALANINE AMINOTRANSFERASE 34 U/L (12-78); ALBUMIN 3.9 G/DL (3.4-5.0); ALBUMIN/GLOBULIN RATIO 1.3 (1.0-2.7); ALKALINE PHOSPHATASE 55 U/L (46-116); ASPARTATE AMINO TRANSFERASE 32 U/L (15-37); BILIRUBIN,TOTAL 0.7 MG/DL (0.2-1.0); BLOOD UREA NITROGEN 32 mg/dL (7-18); CALCIUM 9.5 MG/DL (8.5-10.1); CHLORIDE 106 MMOL/L (98-107); CREATININE 1.9 MG/DL (0.55-1.30); POTASSIUM 3.6 MMOL/L (3.5-5.1); SODIUM 141 MMOL/L (136-145)
[2020-07-31 05:21] LABS: CARBON DIOXIDE 26 MMOL/L (21-32)
[2020-07-31] MEDS ORDERED: PERIDEX15 ML ORAL (05:34)
[2020-07-31] MEDS ORDERED: DOCUSATE SODIU100 MG ORAL (05:34)
[2020-07-31] MEDS ORDERED: ACETAMINOPHEN325 M1 ORAL (05:34)
[2020-07-31 05:55] VITALS: BP 117/89
--- NOTE | 2020-07-31 06:08 | NUR ---
ED Nurse Note: VRE, CRE, MRSA swab sent to lab
--- NOTE | 2020-07-31 07:01 | NUR ---
HAND-OFF: Report given to KRYSTYNA Winter. Endorsed care.
--- NOTE | 2020-07-31 07:06 | NUR ---
ED Nurse Note: Report received from KRYSTYNA Renee. Pt lying comfortably in bed with no signs of distress. Gina @ [facility]ie to sit with patient.
--- NOTE | 2020-07-31 07:58 | NUR ---
ED Nurse Note: report given to KRYSTYNA Gilliland on 4E
--- NOTE | 2020-07-31 08:09 | NUR ---
ED Nurse Note: Pt transferred safely to 4E.
[2020-07-31 08:25] VITALS: BP 155/88
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
--- NOTE | 2020-07-31 08:35 | NUR ---
NURSE NOTES: RN was given orders by Dr. Rothman to continue home medications as well as DVT prophylaxis
[2020-07-31] MEDS ORDERED: LORazepam Inj 2mg/ml 1ml IV PRN (10:30)
--- NOTE | 2020-07-31 10:49 | NUR ---
NURSE NOTES: Patient has an absurd mental status. Patient seems to be AAOX3, but then becomes confused as conversation progresses. Patient becomes agitated and then smiles giving mix feelings of personalities
--- NOTE | 2020-07-31 11:03 | Consultation ---
History of Present Illness General Date patient seen: Jul 31, 2020 Chief Complaint: Behavioral Complaint Present Illness HPI 75-year-old Citizen Of [place] male with history of dementia, recent [place] [facility] [place]/o recurrent fall and inability to care for himself, he was discharged to a [facility] couple days ago. There at the care home, he was agitated and refusing to take his medication. He expressed suicidal thoughts to the head end desizing machine operator so therefore police placed on a 5150 hold. He expressed to the head end desizing machine operator that he wanted to "end his life." Patient had no particular plans. He is life not worth living if he can't live at home. He is admitted for further management. Allergies: Coded Allergies: No Known Allergies (Unverified , 07/22/20) Medication History Scheduled Amlodipine Besylate (Norvasc), 5 MG ORAL DAILY Chlorhexidine Gluconate (Peridex), 15 ML MM BID, (Reported) Docusate Sodium* (Docusate Sodium*), 100 MG ORAL ONCE, (Reported) Pantoprazole* (Pantoprazole*), 40 MG ORAL EVERY 12 HOURS Tamsulosin HCl (Flomax), 0.4 MG ORAL BEDTIME Scheduled PRN Acetaminophen* (Acetaminophen 325MG Tablet*), 325 MG ORAL Q4H PRN for For Pain, (Reported) Zolpidem Tartrate* (Ambien*), 5 MG ORAL HSPRN PRN Patient History Healthcare decision maker Resuscitation status Advanced Directive on File Past Medical/Surgical History Past Medical/Surgical History: (1) BPH (benign prostatic hyperplasia) (2) Cervical strain (3) Compression fracture of L3 vertebra (4) Social isolation Review of Systems All Other Systems: negative except mentioned in HPI Physical Exam General Appearance: WD/WN, no apparent distress, alert Lines, tubes and drains: peripheral HEENT: normocephalic, atraumatic Neck: non-tender, normal alignment Respiratory/Chest: chest wall non-tender, lungs clear, normal breath sounds Cardiovascular/Chest: normal peripheral pulses, regular rhythm Abdomen: normal bowel sounds, non tender Last 24 Hour Vital Signs Date Time Temp Pulse Resp B/P (MAP) Pulse Ox O2 Delivery O2 Flow Rate FiO2 07/31/20 10:38 73 155/88 07/31/20 09:00 Room Air 07/31/20 08:25 97.5 73 18 155/88 (110) 98 07/31/20 08:22 Room Air 07/31/20 08:09 98.3 71 18 123/84 98 Room Air 07/31/20 05:55 98.7 75 18 117/89 99 Room Air 07/31/20 04:58 85 20 129/73 99 07/31/20 04:28 85 20 129/73 99 07/31/20 04:00 85 20 Room Air 07/31/20 04:00 99.0 85 20 129/73 99 Room Air 07/31/20 03:51 99.0 85 20 129/73 (91) 99 Room Air Intake and Output 07/30/20 07/31/20 19:00 07:00 Intake Total 1000 ml Output Total 200 ml Balance 800 ml Intake IV Total 1000 ml Output Urine Total 200 ml Laboratory Tests Test 07/31/20 04:25 White Blood Count 4.3 K/UL (4.8-10.8) L Red Blood Count 4.62 M/UL (4.70-6.10) L Hemoglobin 15.5 G/DL (14.2-18.0) Hematocrit 43.1 % (42.0-52.0) Mean Corpuscular Volume 93 FL (80-99) Mean Corpuscular Hemoglobin 33.4 PG (27.0-31.0) H Mean Corpuscular Hemoglobin Concent 35.9 G/DL (32.0-36.0) Red Cell Distribution Width 12.6 % (11.6-14.8) Platelet Count 146 K/UL (150-450) L Mean Platelet Volume 8.9 FL (6.5-10.1) Neutrophils (%) (Auto) % (45.0-75.0) Lymphocytes (%) (Auto) % (20.0-45.0) Monocytes (%) (Auto) % (1.0-10.0) Eosinophils (%) (Auto) % (0.0-3.0) Basophils (%) (Auto) % (0.0-2.0) Differential Total Cells Counted 100 Neutrophils % (Manual) 40 % (45-75) L Lymphocytes % (Manual) 14 % (20-45) L Monocytes % (Manual) 41 % (1-10) H Eosinophils % (Manual) 5 % (0-3) H Basophils % (Manual) 0 % (0-2) Band Neutrophils 0 % (0-8) Platelet Estimate Decreased L Platelet Morphology Normal Urine Color Yellow Urine Appearance Clear Urine pH 5 (4.5-8.0) Urine Specific [place] 1.025 (1.005-1.035) Urine Protein 2+ (NEGATIVE) H Urine Glucose (UA) Negative (NEGATIVE) Urine Ketones 1+ (NEGATIVE) H Urine Blood 5+ (NEGATIVE) H Urine Nitrite Negative (NEGATIVE) Urine Bilirubin Negative (NEGATIVE) Urine Urobilinogen 1 MG/DL (0.0-1.0) H Urine Leukocyte Esterase 1+ (NEGATIVE) H Urine RBC 30-40 /HPF (0 - 0) H Urine WBC 0-2 /HPF (0 - 0) Urine Squamous Epithelial Cells Occasional /LPF Urine Bacteria Few /HPF (NONE) Urine Mucus Few /LPF (NONE/OCC) H Sodium Level 141 MMOL/L (136-145) Potassium Level 3.6 MMOL/L (3.5-5.1) Chloride Level 106 MMOL/L (98-107) Carbon Dioxide Level 26 MMOL/L (21-32) Blood Urea Nitrogen 32 mg/dL (7-18) H Creatinine 1.9 MG/DL (0.55-1.30) H Estimat Glomerular Filtration Rate 34.8 mL/min (>60) Glucose Level 125 MG/DL (74-106) H Calcium Level 9.5 MG/DL (8.5-10.1) Total Bilirubin 0.7 MG/DL (0.2-1.0) Aspartate Amino Transf (AST/SGOT) 32 U/L (15-37) Alanine Aminotransferase (ALT/SGPT) 34 U/L (12-78) Alkaline Phosphatase 55 U/L (46-116) Total Protein 6.9 G/DL (6.4-8.2) Albumin 3.9 G/DL (3.4-5.0) Globulin 3.0 g/dL Albumin/Globulin Ratio 1.3 (1.0-2.7) Salicylates Level < 0.2 ug/mL (2.8-20) L Urine Opiates Screen Negative (NEGATIVE) Acetaminophen Level < 2 MCG/ML (10-30) L Urine Barbiturates Screen Negative (NEGATIVE) Phencyclidine (PCP) Screen Negative (NEGATIVE) Urine Amphetamines Screen Negative (NEGATIVE) Urine Benzodiazepines Screen Negative (NEGATIVE) Urine Cocaine Screen Negative (NEGATIVE) Urine Marijuana (THC) Screen Negative (NEGATIVE) Serum Alcohol < 3 mg/dL Microbiology Date/Time Source Procedure Growth Status 07/31/20 06:30 Nasopharynx SARS-CoV-2 RdRp Gene Assay - Final Complete 07/31/20 06:00 Rectal Mucosa Received Height (Feet): 5 Height (Inches): 7.00 Weight (Pounds): 171 Medications Current Medications Medications (Trade) Dose Ordered Sig/Fabrizio Route PRN Reason Start Time Stop Time Status Last Admin Dose Admin Acetaminophen (Tylenol) 650 mg Q6H PRN ORAL For Headache/ MILD PAIN (1-3) 07/31/20 10:30 08/30/20 10:29 Acetaminophen/ Hydrocodone Bitart ([place] 5/325) 1 tab Q6H PRN ORAL PAIN SCALE 6-10 07/31/20 10:30 08/07/20 10:29 Amlodipine Besylate (Norvasc) 5 mg DAILY ORAL 07/31/20 10:30 08/30/20 10:29 07/31/20 10:38 Docusate Sodium (Colace) 100 mg DAILY ORAL 08/01/20 09:00 08/31/20 08:59 Heparin Sodium (Porcine) (Heparin 5000 units/ml) 5,000 units EVERY 8 HOURS SUBQ 08/01/20 06:00 09/15/20 05:59 Lorazepam (Ativan 2mg/ml 1ml) 1 mg Q4H PRN IV AGITATION 07/31/20 10:30 08/07/20 10:29 Ondansetron HCl (Zofran) 4 mg Q4HR PRN IVP Nausea & Vomiting 07/31/20 10:30 08/30/20 10:29 Pantoprazole (Protonix) 40 mg EVERY 12 HOURS ORAL 07/31/20 10:30 08/30/20 10:29 07/31/20 10:38 Tamsulosin HCl (Flomax) 0.4 mg BEDTIME ORAL 07/31/20 21:00 08/30/20 20:59 Zolpidem Tartrate (Ambien) 5 mg HSPRN PRN ORAL Insomnia 07/31/20 21:00 08/07/20 20:59 Assessment/Plan Problem List: (1) Suicidal ideations ICD Codes: R45.851 - Suicidal ideations SNOMED: 7289235 (2) Agitation due to dementia ICD Codes: F03.91 - Unspecified dementia with behavioral disturbance SNOMED: 553027020 (3) ANGI (acute kidney injury) ICD Codes: N17.9 - Acute kidney failure, unspecified SNOMED: 10342661, 9012078 (4) Compression fracture of L3 vertebra ICD Codes: S32.030A - Wedge compression fracture of third lumbar vertebra, initial encounter for closed fracture SNOMED: 801666320 (5) Failure to thrive in adult ICD Codes: R62.7 - Adult failure to thrive SNOMED: 458231645 (6) Impaired mobility and ADLs ICD Codes: Z74.09 - Other reduced mobility; Z78.9 - Other specified health status SNOMED: 20911376, 198028125, 908757598 (7) Social isolation ICD Codes: Z60.4 - Social exclusion and rejection SNOMED: 710850276 Assessment/Plan: suicide precaution psychology evaluation symptomatic treatment pain management check electrolytes renal studies. dvt prophylaxis. Jaclyn Byrne MD Jul 31, 2020 11:03
[2020-07-31] MEDS: D5 1/2NS w/KCl 20mEq 1,000 ML IV SCH (11:39)
[2020-07-31 11:40] VITALS: BP 138/93
[2020-07-31] MEDS ORDERED: Varibar Thin Liquid powder 148gm MC PRN (12:00)
[2020-07-31] MEDS ORDERED: Varibar Nectar 240ml MC PRN (12:00)
[2020-07-31] MEDS ORDERED: Varibar Pudding 230ml MC PRN (12:00)
[2020-07-31] MEDS ORDERED: Varibar Honey 250ml MC PRN (12:00)
[2020-07-31] MEDS: Haloperidol 5mg/ml Inj IM PRN (15:03)
--- NOTE | 2020-07-31 15:39 | NUR ---
NURSE NOTES: Patient became agitated after sitter was d/c patient tried to get out of bed, became combative, trying to pull out IV, and was yelling. RN gave haldol PRn as ordered. Will continue to monitor
--- NOTE | 2020-07-31 16:13 | NUR ---
NURSE NOTES: Received order for bilateral soft wrist restraints from Dr. Calhoun due to agitation and combativeness of patient
--- NOTE | 2020-07-31 17:28 | History & Physical ---
History and Physical History & Physicial Dictated for Int Med-DR Rothman no. [id number]. Shai Zimmer MD Jul 31, 2020 17:28
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
--- NOTE | 2020-07-31 19:27 | NUR ---
NURSE HAND-OFF: Important Events on Shift: Bilateral soft wrist restraints, prone to agitation and combative Patient Status: stable Diet: Regular Pending Orders: n/a Pending Results/Labs:Swabs Pending MD notification:n/a Latest Vital Signs: Temperature 97.0 , Pulse 77 , B/P 126 /86 , Respiratory Rate 18 , O2 SAT 98 , Room Air, O2 Flow Rate . Vital Sign Comment: stable Latest Robertson Fall Score: 35 Fall Risk: Medium Risk Safety Measures: Call light Within Reach, Bed Alarm Zone 1, Side Rails Side Rails x3, Bed position Low and Locked. Fall Precautions: Yellow Socks Yellow Gown Patient Fall Education Report given to KRYSTYNA Fitzgerald.
--- NOTE | 2020-07-31 19:32 | NUR ---
NURSE NOTES: Received report from Talat GREENWOOD.The patient is presently sleeping, is on room air with Resp even and unlabored.He has a Bilateral soft wrist restrain related to his behavior of agitations and combativeness. The patient has a Right AC 20g which is intact and asymptomatic.The Bed is locked and placed in lowest position. Side rails up x3, call light within reach. Will continue to monitor as indicated.
[2020-07-31 20:00] VITALS: BP 154/93
[2020-07-31] MEDS ORDERED: Tamsulosin 0.4mg cap ORAL SCH (21:00)
[2020-07-31] MEDS ORDERED: Zolpidem 5mg tab ORAL PRN (21:00)
[2020-07-31] MEDS: HYDROcodone/Acetamin 5/325 tab ORAL PRN (21:27)
[2020-08-01] VITALS: BP 149/94
[2020-08-01] MEDS: Haloperidol 5mg/ml Inj IM PRN ×2 (00:57→22:33)
--- NOTE | 2020-08-01 01:30 | NUR ---
NURSE NOTES: The patient was noted with agitations and aggressiveness. Haldol 5 mg was given IM as indicated.Willcontinue to monitor progress.
[2020-08-01 04:00] VITALS: BP 156/92
[2020-08-01] MEDS: Heparin 5000 units/ml inj SUBQ SCH ×3 (06:00→21:46)
--- NOTE | 2020-08-01 06:10 | NUR ---
NURSE NOTES: Heparin was not administer because the Plt was low at 146.The patient is alert and stable with Resp even and unlabored. The patient was also noted to have a history of head contusion.
[2020-08-01 06:49] LABS: HEMATOCRIT 41.4 % (42.0-52.0); HEMOGLOBIN 14.4 G/DL (14.2-18.0); MEAN CORPUSCULAR VOLUME 96 FL (80-99); PLATELET COUNT 122 K/UL (150-450); RED BLOOD COUNT 4.31 M/UL (4.70-6.10); RED CELL DISTRIBUTION WIDTH 12.8 % (11.6-14.8); WHITE BLOOD COUNT 3.2 K/UL (4.8-10.8)
--- NOTE | 2020-08-01 07:18 | NUR ---
NURSE HAND-OFF: Important Events on Shift:Soft wrist restrain Patient Status: Diet: Pending Orders: Pending Results/Labs: Pending MD notification: Latest Vital Signs: Temperature 98.8 , Pulse 65 , B/P 156 /92 , Respiratory Rate 20 , O2 SAT 97 , Room Air, O2 Flow Rate . Vital Sign Comment: Latest Robertson Fall Score: 35 Fall Risk: Medium Risk Safety Measures: Call light Within Reach, Bed Alarm Zone 1, Side Rails Side Rails x3, Bed position Low and Locked. Fall Precautions: Yellow Socks Yellow Gown Patient Fall Education Report given to .
[2020-08-01 07:33] LABS: ALBUMIN 3.7 G/DL (3.4-5.0); ALBUMIN/GLOBULIN RATIO 1.1 (1.0-2.7); BILIRUBIN,TOTAL 0.7 MG/DL (0.2-1.0); CALCIUM 8.5 MG/DL (8.5-10.1); CREATININE 1.4 MG/DL (0.55-1.30); PHOSPHORUS 2.5 MG/DL (2.5-4.9); POTASSIUM 3.5 MMOL/L (3.5-5.1)
--- NOTE | 2020-08-01 07:46 | NUR ---
NURSE NOTES: Received report from KRYSTYNA Fitzgerald. Patient seen in bed asleep, noted to be AAOx2, on room air. Patient is able to make needs known, but a time confused. IV site is patent and intact. Patient has bilateral soft wrist restraints, pulses are palpable, skin is intact, and RN noted to see if patient is able to be off restraints. Patient has a condom cath and urine culture needs to be collected. Bed is lock and placed in lowest position with bed alarm on. Call light within reach. Will continue to monitor
[2020-08-01 08:00] VITALS: BP 150/83
[2020-08-01] MEDS ORDERED: Docusate 100mg cap ORAL SCH (09:00)
[2020-08-01] MEDS: D5 1/2NS w/KCl 20mEq 1,000 ML IV SCH ×2 (09:28→22:47)
--- NOTE | 2020-08-01 10:20 | Pulmonology Progress Note ---
Subjective ROS Limited/Unobtainable: Yes Constitutional: Reports: no symptoms HEENT: Repors: no symptoms Respiratory: Reports: no symptoms Allergies: Coded Allergies: No Known Allergies (Unverified , 07/22/20) Objective Last 24 Hour Vital Signs Date Time Temp Pulse Resp B/P (MAP) Pulse Ox O2 Delivery O2 Flow Rate FiO2 08/01/20 09:28 65 150/83 08/01/20 09:00 Room Air 08/01/20 08:00 97.9 65 18 150/83 (105) 97 08/01/20 04:00 98.8 65 20 156/92 (113) 97 08/01/20 00:00 98.8 70 20 149/94 (112) 97 07/31/20 21:00 Room Air 07/31/20 20:00 97.8 67 18 154/93 (113) 98 07/31/20 12:09 77 18 126/86 98 07/31/20 11:40 97.0 77 18 138/93 (108) 98 07/31/20 11:39 77 18 138/93 98 07/31/20 10:38 73 155/88 Intake and Output 07/31/20 08/01/20 19:00 07:00 Intake Total 70 ml 1000 ml Balance 70 ml 1000 ml Intake Oral 20 ml 600 ml IV Total 50 ml 400 ml # Voids 1 3 # Bowel Movements 1 General Appearance: WD/WN, no acute distress HEENT: normocephalic, atraumatic, anicteric, mucous membranes moist Respiratory: normal breath sounds, no respiratory distress, no accessory muscle use Cardiovascular: normal peripheral pulses, normal rate, regular rhythm Abdomen: normal bowel sounds, soft, non tender, no organomegaly, non distended, no mass Neurologic: consultant teacher II-XII grossly normal Lymphatic: no neck adenopathy Microbiology Date/Time Source Procedure Growth Status 07/31/20 06:30 Nasopharynx SARS-CoV-2 RdRp Gene Assay - Final Complete 07/31/20 06:00 Rectal Mucosa Received 07/31/20 06:00 Nasal Nares MRSA Culture - Final NO METHICILLIN RESISTANT STAPH AUREUS... Complete Laboratory Tests 08/01/20 05:45: White Blood Count 3.2L, Red Blood Count 4.31L, Hemoglobin 14.4, Hematocrit 41.4L , Mean Corpuscular Volume 96, Mean Corpuscular Hemoglobin 33.5H, Mean Corpuscular Hemoglobin Concent 34.8, Red Cell Distribution Width 12.8, Platelet Count 122L, Mean Platelet Volume 8.4, Neutrophils (%) (Auto) , Lymphocytes (%) (Auto) , Monocytes (%) (Auto) , Eosinophils (%) (Auto) , Basophils (%) (Auto) , Neutrophils % (Manual) [Pending], Lymphocytes % (Manual) [Pending], Platelet Estimate [Pending], Platelet Morphology [Pending], Sodium Level 144, Potassium Level 3.5, Chloride Level 109H, Carbon Dioxide Level 26, Anion Gap 9, Blood Urea Nitrogen 24H, Creatinine 1.4H, Estimat Glomerular Filtration Rate 49.5, Glucose Level 92, Hemoglobin A1c 5.5, Uric Acid 6.9, Calcium Level 8.5, Phosphorus Level 2.5, Magnesium Level 2.1, Total Bilirubin 0.7, Gamma Glutamyl Transpeptidase 27, Aspartate Amino Transf (AST/SGOT) 45H, Alanine Aminotransferase (ALT/SGPT) 45, Alkaline Phosphatase 53, C-Reactive Protein, Quantitative 1.2H, Pro-B-Type Natriuretic Peptide 245H, Total Protein 7.2, Albumin 3.7, Globulin 3.5, Albumin/Globulin Ratio 1.1, Thyroid Stimulating Horm one (TSH) 2.346 Current Medications Medications (Trade) Dose Ordered Sig/Fabrizio Route PRN Reason Start Time Stop Time Status Last Admin Dose Admin Acetaminophen (Tylenol) 650 mg Q6H PRN ORAL For Headache/ MILD PAIN (1-3) 07/31/20 10:30 08/30/20 10:29 Acetaminophen/ Hydrocodone Bitart ([place] 5/325) 1 tab Q6H PRN ORAL PAIN SCALE 6-10 07/31/20 10:30 08/07/20 10:29 07/31/20 21:27 Amlodipine Besylate (Norvasc) 5 mg DAILY ORAL 07/31/20 10:30 08/30/20 10:29 08/01/20 09:28 Barium Sulfate ([place] Honey) 250 ml NOW PRN MC RAD 07/31/20 12:00 08/03/20 11:50 Barium Sulfate (Varibar [place]) 240 ml NOW PRN MC RAD 07/31/20 12:00 08/03/20 11:50 Barium Sulfate (Varibar Pudding) 230 ml NOW PRN RAD 07/31/20 12:00 08/03/20 11:50 Barium Sulfate (Var[place]ar Thin Liquid powder) 148 gm NOW PRN RAD 07/31/20 12:00 08/03/20 11:50 Dextrose/ Electrolytes 1,000 ml @ 50 mls/hr Q20H IV 07/31/20 12:00 08/30/20 11:59 08/01/20 09:28 Docusate Sodium (Colace) 100 mg DAILY ORAL 08/01/20 09:00 08/31/20 08:59 08/01/20 09:28 Haloperidol Lactate (Haldol) 5 mg Q6H PRN IM Agitation 07/31/20 14:15 09/14/20 14:14 08/01/20 00:57 Heparin Sodium (Porcine) (Heparin 5000 units/ml) 5,000 units EVERY 8 HOURS SUBQ 08/01/20 06:00 09/15/20 05:59 Mirtazapine (Remeron) 15 mg BEDTIME ORAL 07/31/20 21:00 10/29/20 20:59 07/31/20 21:25 Ondansetron HCl (Zofran) 4 mg Q4HR PRN IVP Nausea & Vomiting 07/31/20 10:30 08/30/20 10:29 Pantoprazole (Protonix) 40 mg EVERY 12 HOURS ORAL 07/31/20 10:30 08/30/20 10:29 08/01/20 09:28 Tamsulosin HCl (Flomax) 0.4 mg BEDTIME ORAL 07/31/20 21:00 08/30/20 20:59 07/31/20 21:25 Assessment/Plan Problems: (1) Suicidal ideations (2) Agitation due to dementia (3) ANGI (acute kidney injury) (4) Compression fracture of L3 vertebra (5) Failure to thrive in adult (6) Impaired mobility and ADLs (7) Social isolation Assessment/Plan suicide precaution psychology evaluation symptomatic treatment pain management check electrolytes renal studies. dvt prophylaxis. Jaclyn Byrne MD Aug 01, 2020 10:20
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
[2020-08-01] MEDS: Docusate 100mg cap ORAL SCH ×2 (13:07→17:31)
[2020-08-01] MEDS: Tamsulosin 0.4mg cap ORAL SCH ×2 (13:07→22:34)
--- NOTE | 2020-08-01 14:58 | Internal Med Progress Note ---
Subjective Date of Service: Aug 01, 2020 Physician Name Shai Zimmer Attending Physician Andrés Rothman MD Current Medications Medications (Trade) Dose Ordered Sig/Fabrizio Route PRN Reason Start Time Stop Time Status Last Admin Dose Admin Acetaminophen (Tylenol) 650 mg Q6H PRN ORAL For Headache/ MILD PAIN (1-3) 07/31/20 10:30 08/30/20 10:29 Acetaminophen/ Hydrocodone Bitart ([place] 5/325) 1 tab Q6H PRN ORAL PAIN SCALE 6-10 07/31/20 10:30 08/07/20 10:29 07/31/20 21:27 Amlodipine Besylate (Norvasc) 5 mg BID ORAL 08/01/20 18:00 08/30/20 10:29 Barium Sulfate (Varibar Honey) 250 ml NOW PRN MC RAD 07/31/20 12:00 08/03/20 11:50 Barium Sulfate (Varibar [place]) 240 ml NOW PRN MC RAD 07/31/20 12:00 08/03/20 11:50 Barium Sulfate (Varibar Pud[place]) 230 ml NOW PRN MC RAD 07/31/20 12:00 08/03/20 11:50 Barium Sulfate (Varibar Thin Liquid powder) 148 gm NOW PRN MC RAD 07/31/20 12:00 08/03/20 11:50 Dextrose/ Electrolytes 1,000 ml @ 75 mls/hr [id number] IV 07/31/20 12:00 08/30/20 11:59 08/01/20 09:28 Docusate Sodium (Colace) 100 mg TID ORAL 08/01/20 13:00 08/31/20 08:59 08/01/20 13:07 Haloperidol Lactate (Haldol) 5 mg Q6H PRN IM Agitation 07/31/20 14:15 09/14/20 14:14 08/01/20 00:57 Heparin Sodium (Porcine) (Heparin 5000 units/ml) 5,000 units EVERY 8 HOURS SUBQ 08/01/20 06:00 09/15/20 05:59 Mirtazapine (Remeron) 15 mg BEDTIME ORAL 07/31/20 21:00 10/29/20 20:59 07/31/20 21:25 Ondansetron HCl (Zofran) 4 mg Q4HR PRN IVP Nausea & Vomiting 07/31/20 10:30 08/30/20 10:29 Pantoprazole (Protonix) 40 mg EVERY 12 HOURS ORAL 07/31/20 10:30 08/30/20 10:29 08/01/20 09:28 Tamsulosin HCl (Flomax) 0.4 mg Q12HR ORAL 08/01/20 13:00 08/31/20 12:59 08/01/20 13:07 Allergies: Coded Allergies: No Known Allergies (Unverified , 07/22/20) ROS Limited/Unobtainable: No Constitutional: Reports: no symptoms HEENT: Reports: no symptoms Cardiovascular: Reports: no symptoms Respiratory: Reports: no symptoms Gastrointestinal/Abdominal: Reports: no symptoms Genitourinary: Reports: no symptoms Neurologic/Psychiatric: Reports: no symptoms Subjective 75 YO M admitted with agitation and cristel depression. Cover for Int Jesús - Dr Rothman Objective Last Vital Signs Date Time Temp Pulse Resp B/P (MAP) Pulse Ox O2 Delivery O2 Flow Rate FiO2 08/01/20 09:28 65 150/83 08/01/20 09:00 Room Air 08/01/20 08:00 97.9 18 97 Laboratory Tests Test 08/01/20 05:45 White Blood Count 3.2 K/UL (4.8-10.8) L Red Blood Count 4.31 M/UL (4.70-6.10) L Hemoglobin 14.4 G/DL (14.2-18.0) Hematocrit 41.4 % (42.0-52.0) L Mean Corpuscular Volume 96 FL (80-99) Mean Corpuscular Hemoglobin 33.5 PG (27.0-31.0) H Mean Corpuscular Hemoglobin Concent 34.8 G/DL (32.0-36.0) Red Cell Distribution Width 12.8 % (11.6-14.8) Platelet Count 122 K/UL (150-450) L Mean Platelet Volume 8.4 FL (6.5-10.1) Neutrophils (%) (Auto) % (45.0-75.0) Lymphocytes (%) (Auto) % (20.0-45.0) Monocytes (%) (Auto) % (1.0-10.0) Eosinophils (%) (Auto) % (0.0-3.0) Basophils (%) (Auto) % (0.0-2.0) Differential Total Cells Counted 100 Neutrophils % (Manual) 38 % (45-75) L Lymphocytes % (Manual) 33 % (20-45) Monocytes % (Manual) 25 % (1-10) H Eosinophils % (Manual) 3 % (0-3) Basophils % (Manual) 1 % (0-2) Band Neutrophils 0 % (0-8) Platelet Estimate Decreased L Platelet Morphology Normal Red Blood Cell Morphology Normal Sodium Level 144 MMOL/L (136-145) Potassium Level 3.5 MMOL/L (3.5-5.1) Chloride Level 109 MMOL/L (98-107) H Carbon Dioxide Level 26 MMOL/L (21-32) Anion Gap 9 mmol/L (5-15) Blood Urea Nitrogen 24 mg/dL (7-18) H Creatinine 1.4 MG/DL (0.55-1.30) H Estimat Glomerular Filtration Rate 49.5 mL/min (>60) Glucose Level 92 MG/DL (74-106) Hemoglobin A1c 5.5 % (4.3-6.0) Uric Acid 6.9 MG/DL (2.6-7.2) Calcium Level 8.5 MG/DL (8.5-10.1) Phosphorus Level 2.5 MG/DL (2.5-4.9) Magnesium Level 2.1 MG/DL (1.8-2.4) Total Bilirubin 0.7 MG/DL (0.2-1.0) Gamma Glutamyl Transpeptidase 27 U/L (5-85) Aspartate Amino Transf (AST/SGOT) 45 U/L (15-37) H Alanine Aminotransferase (ALT/SGPT) 45 U/L (12-78) Alkaline Phosphatase 53 U/L (46-116) C-Reactive Protein, Quantitative 1.2 mg/dL (0.00-0.90) H Pro-B-Type Natriuretic Peptide 245 pg/mL (0-125) H Total Protein 7.2 G/DL (6.4-8.2) Albumin 3.7 G/DL (3.4-5.0) Globulin 3.5 g/dL Albumin/Globulin Ratio 1.1 (1.0-2.7) Thyroid Stimulating Hormone (TSH) 2.346 uiU/mL (0.358-3.740) Microbiology Date/Time Source Procedure Growth Status 07/31/20 06:30 Nasopharynx SARS-CoV-2 RdRp Gene Assay - Final Complete 07/31/20 06:00 Rectal Mucosa Received 07/31/20 06:00 Nasal Nares MRSA Culture - Final NO METHICILLIN RESISTANT STAPH AUREUS... Complete Intake and Output 07/31/20 08/01/20 19:00 07:00 Intake Total 70 ml 1000 ml Balance 70 ml 1000 ml Intake Oral 20 ml 600 ml IV Total 50 ml 400 ml # Voids 1 3 # Bowel Movements 1 Objective PHYSICAL EXAMINATION: GENERAL: The patient is a well-developed and well-nourished male, in no apparent distress. HEENT: Eyes, pupils are equal and responsive to light and accommodation. Extraocular movements are intact. NECK: Supple without lymphadenopathy. CHEST: Lungs are clear to auscultation bilaterally without wheezes or rales. CARDIOVASCULAR: Regular rate. S1, S2 are normal without murmurs, rubs, or gallops. ABDOMEN: Soft, nontender, and nondistended. Positive bowel sounds. No evidence of hepatosplenomegaly. Currently, no rebound or guarding noted. EXTREMITIES: Negative for clubbing, cyanosis, or edema. RECTAL/GENITAL: Refused. NEUROLOGIC: Cranial nerves II through XII are grossly intact without focal deficits. Motor strength is 5/5 bilaterally. Deep tendon reflexes are 2+ plantar. Assessment/Plan Assessment/Plan ASSESSMENT: This is a 75-year-old male with: 1. Agitation. 2. Major depression. 3. Suicidal ideation. 4. Chronic renal failure. 5. Morbid obesity. 6. Hypertension. 7. Thoracic vertebral compression fracture. 8. Lumbar vertebral compression fracture. TREATMENT: 1. Agitation/major depression/suicidal ideation. A psychiatric consultation has been obtained with Dr. Calhoun. Follow recommendations of Psychiatry. 2. Chronic renal failure. The patient is currently receiving intravenous fluids. 3. Morbid obesity. 4. Hypertension. Continue amlodipine as above. 5. Thoracic/lumbar/vertebral compression fractures. Shai Zimmer MD Aug 01, 2020 14:58
[2020-08-01] MEDS ORDERED: PANTOPRAZOLE SO40 MG ORAL (15:53)
[2020-08-01] MEDS ORDERED: FLOMAX0.4 MG ORAL (15:53)
[2020-08-01] MEDS ORDERED: AMLODIPINE BESYL5 MG ORAL (15:54)
[2020-08-01] MEDS ORDERED: ZOLPIDEM TARTRAT5 MG ORAL (15:56)
[2020-08-01 16:00] VITALS: BP 138/93
--- NOTE | 2020-08-01 19:32 | NUR ---
HAND-OFF: Report given to KRYSTYNA Pratt.
--- NOTE | 2020-08-01 19:35 | NUR ---
NURSE NOTES: Received report from Talat GREENWOOD.The patient is presently sleeping on room air, in no acute distress, respirations even and unlabored. Has Bilateral soft wrist restraints related to his behavior of agitations and combativeness. The patient has a Right hand occluded, will reinsert IV access for peripheral line fluids. Pt is on fall precautions. The Bed is locked and placed in lowest position. Side rails up x3, call light within reach. Will continue to monitor.
[2020-08-01 20:00] VITALS: BP 148/90
[2020-08-01] MEDS: HYDROcodone/Acetamin 5/325 tab ORAL PRN (22:34)
[2020-08-02] VITALS: BP 133/81
[2020-08-02 04:00] VITALS: BP 148/84
[2020-08-02] MEDS: Heparin 5000 units/ml inj SUBQ SCH ×2 (06:00→14:00)
[2020-08-02 06:40] LABS: HEMATOCRIT 43.5 % (42.0-52.0); HEMOGLOBIN 15.1 G/DL (14.2-18.0); MEAN CORPUSCULAR VOLUME 96 FL (80-99); PLATELET COUNT 130 K/UL (150-450); RED BLOOD COUNT 4.54 M/UL (4.70-6.10); WHITE BLOOD COUNT 3.5 K/UL (4.8-10.8)
[2020-08-02 07:32] LABS: ALANINE AMINOTRANSFERASE 105 U/L (12-78); ALBUMIN 3.9 G/DL (3.4-5.0); ALBUMIN/GLOBULIN RATIO 1.1 (1.0-2.7); ALKALINE PHOSPHATASE 67 U/L (46-116); ANION GAP 10 mmol/L (5-15); ASPARTATE AMINO TRANSFERASE 121 U/L (15-37); BILIRUBIN,TOTAL 1.1 MG/DL (0.2-1.0); BLOOD UREA NITROGEN 19 mg/dL (7-18); CALCIUM 8.6 MG/DL (8.5-10.1); CARBON DIOXIDE 26 MMOL/L (21-32); CHLORIDE 107 MMOL/L (98-107); CHOLESTEROL 145 MG/DL (< 200); CREATININE 1.5 MG/DL (0.55-1.30); FERRITIN 664 NG/ML (8-388); GAMMA GLUTAMYL TRANSPEPTIDASE 55 U/L (5-85); HDL CHOLESTEROL 30 MG/DL (40-60); PHOSPHORUS 2.7 MG/DL (2.5-4.9); POTASSIUM 3.7 MMOL/L (3.5-5.1); SODIUM 143 MMOL/L (136-145); TRIGLYCERIDES 113 MG/DL (30-150)
[2020-08-02 07:36] LABS: BILIRUBIN,DIRECT 0.5 MG/DL (0.0-0.3)
--- NOTE | 2020-08-02 07:40 | NUR ---
NURSE NOTES: received report from KRYSTYNA Pratt. patient in bed. alert. limited verbal communication. no respiratory distress on room air. no pain at this time. soft restraints on both wrist for safety and prevention pulling devices. condom cath draining. skin warm and dry to touch. peripheral purse present. active bm sound. no edema noted. bed in the lowest position and locked. call light within reach. will continue to provide plan of care
[2020-08-02 07:47] LABS: % IRON SATURATION 36 % (15-50); IRON 66 ug/dL (50-175); TOTAL IRON BINDING CAPACITY 185 ug/dL (250-450)
--- NOTE | 2020-08-02 07:51 | NUR ---
NURSE HAND-OFF: Important Events on Shift: bilateral Soft wrist restraints to be renewed tomorrow 08/03 by 2018 Patient Status: stable, continues to be a high fall risk, high agitation, concern for verbalizations of depressed mood, exhibits depressed affect Diet: reg, soft Pending Orders: labs this morning, pending urine culture, sent yesterday Pending Results/Labs: labs, multiple labs, check this morning Pending MD notification:- Latest Vital Signs: Temperature 98.8 , Pulse 65 , B/P 156 /92 , Respiratory Rate 20 , O2 SAT 97 , Room Air, O2 Flow Rate . Vital Sign Comment: Latest Robertson Fall Score: 35 Fall Risk: HI FALL RISK Safety Measures: Call light Within Reach, Bed Alarm Zone 1, Side Rails Side Rails x3, Bed position Low and Locked. Fall Precautions: Yellow Socks Yellow Gown Patient Fall Education Report given to Luke GREENWOOD
[2020-08-02 08:00] VITALS: BP 153/86
[2020-08-02 08:11] LABS: AMMONIA 21 umol/L (11-32)
--- NOTE | 2020-08-02 08:30 | Consultation ---
DATE OF CONSULTATION: 07/31/2020 HISTORY OF PRESENT ILLNESS: This is a 75-year-old male with a history of depression as well as anxiety disorder, who is known to me from his facility, [facility]. The patient apparently reported to the staff that he was noncompliant and became agitated through his staff and stated that he wanted to . 911 was called and the patient was brought into [facility]. During the evaluation, the patient is confused and is consciousness, episodes of agitation, pulling out his line sedatives and was unable to answer the questions and be engaged. PAST PSYCHIATRIC HISTORY: Depression, anxiety. PAST MEDICAL HISTORY: BPH, hypertension, failure to thrive, renal failure. ALLERGIES: No known drug allergies. SUBSTANCE ABUSE HISTORY: No known history of illicit drug use or alcohol. MENTAL STATUS EXAMINATION: The patient is awake, disoriented. Mood is depressed and agitated. Affect is blunted, congruent with mood. Thought process is concrete. Thought content negative for suicidal or homicidal ideation. Cognition is impaired. Insight and judgment is impaired. ASSESSMENT: [place] I Acute toxic encephalopathy. Dementia. Ramsey II Deferred. Ramsey III Renal failure and hypertension. Ramsey IV Low. Ramsey V 25. PLAN: 1. 2. Discontinue the Ambien. 3. Start the patient on mirtazapine 15 at bedtime. 4. Haldol 5 mg every 6 hours. 5. Treat the underlying cause of encephalopathy. 6. The patient is not in any danger to self or others. Cassidy Calhoun M.D. DR: JEAN-CLAUDE JOB#: [id number] CC: ELAINE
[2020-08-02] MEDS: Tamsulosin 0.4mg cap ORAL SCH (09:03)
[2020-08-02] MEDS: Docusate 100mg cap ORAL SCH ×3 (09:03→18:05)
--- NOTE | 2020-08-02 10:32 | NUR ---
RD ASSESSMENT & RECOMMENDATIONS SEE CARE ACTIVITY FOR COMPLETE ASSESSMENT DAILY ESTIMATED NEEDS: Needs based on Obese, renal, cardiac 73.6kg abw 25-30 kcals/kg 9565-7200 total kcals 1-1.5 g protein/kg 74-110 g total protein 25-30 mL/kg 5273-5183 total fluid mLs NUTRITION DIAGNOSIS: Decreased sodium needs r/t cardiac and renal status as evidenced by pt w/ renal failure, elev BUN and creat, elev LFt's, elev BP (153/86) CURRENT DIET: regular PO DIET RECOMMENDATIONS: LOW NA DIET / texture as tolerated ADDITIONAL RECOMMENDATIONS: 1) Obtain a calibrated bed scale wts 77.56kg per EMR vs 92.7kg per bed scale 2) Consider holding psych meds for meal time, pt w/ poor po intake Monitor need for NGT feeds if pt requires sedation/multiple psych meds. 3) maintain D5 w/ poor po intake
[2020-08-02] MEDS ORDERED: MIRTAZAPINE15 M3 ORAL (11:55)
[2020-08-02] MEDS ORDERED: FLOMAX0.4 MG ORAL (11:55)
[2020-08-02] MEDS ORDERED: HALDOL INJECT5 MG/ML IM (11:55)
--- NOTE | 2020-08-02 11:56 | Pulmonology Progress Note ---
Subjective ROS Limited/Unobtainable: No Constitutional: Reports: no symptoms HEENT: Repors: no symptoms Respiratory: Reports: no symptoms Allergies: Coded Allergies: No Known Allergies (Unverified , 07/22/20) Objective Last 24 Hour Vital Signs Date Time Temp Pulse Resp B/P (MAP) Pulse Ox O2 Delivery O2 Flow Rate FiO2 08/02/20 09:03 76 153/86 08/02/20 09:00 Room Air 08/02/20 08:00 97.9 76 20 153/86 (108) 94 08/02/20 04:00 98.9 90 20 148/84 (105) 96 08/02/20 00:00 98.0 84 20 133/81 (98) 96 08/01/20 23:04 97.6 08/01/20 21:00 Room Air 08/01/20 20:00 97.6 98 20 148/90 (109) 96 08/01/20 17:31 77 138/93 08/01/20 16:00 97.0 77 18 138/93 (108) 98 Intake and Output 08/01/20 08/02/20 19:00 07:00 Intake Total 10 ml Output Total 30 ml Balance -20 ml Intake Oral 10 ml Output Urine Total 30 ml # Voids 1 3 General Appearance: WD/WN, no acute distress HEENT: normocephalic, atraumatic, anicteric, mucous membranes moist Respiratory: normal breath sounds, no respiratory distress, no accessory muscle use Cardiovascular: normal peripheral pulses, normal rate, regular rhythm Abdomen: normal bowel sounds, soft, non tender, no organomegaly, non distended, no mass 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 Complete 07/31/20 06:00 Rectal Mucosa - Final NO CARBAPENEM-RESISTANT ENTEROBACTERI... Complete 07/31/20 06:00 Nasal Nares MRSA Culture - Final NO METHICILLIN RESISTANT STAPH AUREUS... Complete Laboratory Tests 08/02/20 06:05: White Blood Count 3.5L, Red Blood Count 4.54L, Hemoglobin 15.1, Hematocrit 43.5, Mean Corpuscular Volume 96, Mean Corpuscular Hemoglobin 33.2H, Mean Corpuscular Hemoglobin Concent 34.6, Red Cell Distribution Width 13.0, Platelet Count 130L, Mean Platelet Volume 9.0, Neutrophils (%) (Auto) , Lymphocytes (%) (Auto) , Monocytes (%) (Auto) , Eosinophils (%) (Auto) , Basophils (%) (Auto) , Differential Total Cells Counted 100, Neutrophils % (Manual) 43L, Lymphocytes % (Manual) 25, Monocytes % (Manual) 29H, Eosinophils % (Manual) 3, Basophils % (Manual) 0, Band Neutrophils 0, Platelet Estimate DecreasedL, Platelet Morphology Normal, Red Blood Cell Morphology Normal, Sodium Level 143, Potassium Level 3.7, Chloride Level 107, Carbon Dioxide Level 26, Anion Gap 10, Blood Urea Nitrogen 19H, Creatinine 1.5H, Estimat Glomerular Filtration Rate 45.7, Glucose Level 93, Uric Acid 6.5, Calcium Level 8.6, Phosphorus Level 2.7, Magnesium Level 2.0, Iron Level 66, Total Iron Binding Capacity 185L, Percent Iron Saturation 36, Unsaturated Iron Binding 119, Ferritin 664H, Total Bilirubin 1.1H , Direct Bilirubin 0.5H, Gamma Glutamyl Transpeptidase 55, Aspartate Amino Transf (AST/SGOT) 121H, Alanine Aminotransferase (ALT/SGPT) 105H, Alkaline Phosphatase 67, Ammonia 21, C-Reactive Protein, Quantitative 1.8H, Pro-B-Type Natriuretic Peptide 212H, Total Protein 7.6, Albumin 3.9, Globulin 3.7, Albumin/Globulin Ratio 1.1, Triglycerides Level 113, Cholesterol Level 145, LDL Cholesterol 95, HDL Cholesterol 30L, Cholesterol/HDL Ratio 4.8H, Lipase 147, Folate 9.1 Current Medications Medications (Trade) Dose Ordered Sig/Fabrizio Route PRN Reason Start Time Stop Time Status Last Admin Dose Admin Acetaminophen (Tylenol) 650 mg Q6H PRN ORAL For Headache/ MILD PAIN (1-3) 07/31/20 10:30 08/30/20 10:29 Acetaminophen/ Hydrocodone Bitart ([place] 5/325) 1 tab Q6H PRN ORAL PAIN SCALE 6-10 07/31/20 10:30 08/07/20 10:29 08/01/20 22:34 Amlodipine Besylate (Norvasc) 5 mg BID ORAL 08/01/20 18:00 08/30/20 10:29 08/02/20 09:03 Barium Sulfate (Varibar [place]) 250 ml NOW PRN RAD 07/31/20 12:00 08/03/20 11:50 Barium Sulfate (Varibar [place]) 240 ml NOW PRN RAD 07/31/20 12:00 08/03/20 11:50 Barium Sulfate (Varibar [place]ud[place]) 230 ml NOW PRN RAD 07/31/20 12:00 08/03/20 11:50 Barium Sulfate (Varibar Thin Liquid powder) 148 gm NOW PRN RAD 07/31/20 12:00 08/03/20 11:50 Dextrose/ Electrolytes 1,000 ml @ 75 mls/hr [id number] IV 07/31/20 12:00 08/30/20 11:59 08/01/20 09:28 Docusate Sodium (Colace) 100 mg TID ORAL 08/01/20 13:00 08/31/20 08:59 08/02/20 09:03 Haloperidol Lactate (Haldol) 5 mg Q6H PRN IM Agitation 07/31/20 14:15 09/14/20 14:14 08/01/20 22:33 Heparin Sodium (Porcine) (Heparin 5000 units/ml) 5,000 units EVERY 8 HOURS SUBQ 08/01/20 06:00 09/15/20 05:59 Mirtazapine (Remeron) 15 mg BEDTIME ORAL 07/31/20 21:00 10/29/20 20:59 08/01/20 22:34 Ondansetron HCl (Zofran) 4 mg Q4HR PRN IVP Nausea & Vomiting 07/31/20 10:30 08/30/20 10:29 Pantoprazole (Protonix) 40 mg EVERY 12 HOURS ORAL 07/31/20 10:30 08/30/20 10:29 08/02/20 09:03 Tamsulosin HCl (Flomax) 0.4 mg Q12HR ORAL 08/01/20 13:00 08/31/20 12:59 08/02/20 09:03 Assessment/Plan Problems: (1) Suicidal ideations (2) Agitation due to dementia (3) ANGI (acute kidney injury) (4) Compression fracture of L3 vertebra (5) Failure to thrive in adult (6) Impaired mobility and ADLs (7) Social isolation Assessment/Plan suicide precaution psychology evaluation appreciated, pt is not a danger to himself or to others. symptomatic treatment pain management check electrolytes renal studies. dvt prophylaxis. discharge back to [facility] Jaclyn Byrne MD Aug 02, 2020 11:56
[2020-08-02 12:00] VITALS: BP 149/89
[2020-08-02] MEDS: D5 1/2NS w/KCl 20mEq 1,000 ML IV SCH (12:21)
--- NOTE | 2020-08-02 12:21 | Nephrology Progress Note ---
Assessment/Plan Problem List: (1) Renal failure (ARF), acute on chronic (2) ANGI (acute kidney injury) (3) UTI (urinary tract infection) (4) BPH (benign prostatic hyperplasia) (5) Dehydration (6) HTN (hypertension) Assessment Renal failure, most likely acute on chronic renal failure Dehydration Toxic metabolic encephalopathy Depression, agitation Hypertension Thoracic vertebral and lumbar vertebral compression fractures Plan August 02: Patient remains encephalopathic. Urine culture is pending. Urine analysis suspicious for UTI. No chest x-ray result could be found. Today's labs reviewed. Mild leukocytosis and mild elevation of CRP persists. Will order Rocephin for now pending the chest x-ray results and urine cultures. Psych note appreciated. Previously: IV hydration Urine for culture Monitor renal parameters Pain medication Psych management Per orders Objective Objective Last 24 Hour Vital Signs Date Time Temp Pulse Resp B/P (MAP) Pulse Ox O2 Delivery O2 Flow Rate FiO2 08/02/20 09:03 76 153/86 08/02/20 09:00 Room Air 08/02/20 08:00 97.9 76 20 153/86 (108) 94 08/02/20 04:00 98.9 90 20 148/84 (105) 96 08/02/20 00:00 98.0 84 20 133/81 (98) 96 08/01/20 23:04 97.6 08/01/20 21:00 Room Air 08/01/20 20:00 97.6 98 20 148/90 (109) 96 08/01/20 17:31 77 138/93 08/01/20 16:00 97.0 77 18 138/93 (108) 98 Intake and Output 08/01/20 08/02/20 19:00 07:00 Intake Total 10 ml Output Total 30 ml Balance -20 ml Intake Oral 10 ml Output Urine Total 30 ml # Voids 1 3 Laboratory Tests 08/02/20 06:05: White Blood Count 3.5L, Red Blood Count 4.54L, Hemoglobin 15.1, Hematocrit 43.5, Mean Corpuscular Volume 96, Mean Corpuscular Hemoglobin 33.2H, Mean Corpuscular Hemoglobin Concent 34.6, Red Cell Distribution Width 13.0, Platelet Count 130L, Mean Platelet Volume 9.0, Neutrophils (%) (Auto) , Lymphocytes (%) (Auto) , Monocytes (%) (Auto) , Eosinophils (%) (Auto) , Basophils (%) (Auto) , Differential Total Cells Counted 100, Neutrophils % (Manual) 43L, Lymphocytes % (Manual) 25, Monocytes % (Manual) 29H, Eosinophils % (Manual) 3, Basophils % (Manual) 0, Band Neutrophils 0, Platelet Estimate DecreasedL, Platelet Morphology Normal, Red Blood Cell Morphology Normal, Sodium Level 143, Potassium Level 3.7, Chloride Level 107, Carbon Dioxide Level 26, Anion Gap 10, Blood Urea Nitrogen 19H, Creatinine 1.5H, Estimat Glomerular Filtration Rate 45.7, Glucose Level 93, Uric Acid 6.5, Calcium Level 8.6, Phosphorus Level 2.7, Magnesium Level 2.0, Iron Level 66, Total Iron Binding Capacity 185L, Percent Iron Saturation 36, Unsaturated Iron Binding 119, Ferritin 664H, Total Bilirubin 1.1H , Direct Bilirubin 0.5H, Gamma Glutamyl Transpeptidase 55, Aspartate Amino Transf (AST/SGOT) 121H, Alanine Aminotransferase (ALT/SGPT) 105H, Alkaline Phosphatase 67, Ammonia 21, C-Reactive Protein, Quantitative 1.8H, Pro-B-Type Natriuretic Peptide 212H, Total Protein 7.6, Albumin 3.9, Globulin 3.7, Albumin/Globulin Ratio 1.1, Triglycerides Level 113, Cholesterol Level 145, LDL Cholesterol 95, HDL Cholesterol 30L, Cholesterol/HDL Ratio 4.8H, Lipase 147, Fo late 9.1 Height (Feet): 5 Height (Inches): 7.00 Weight (Pounds): 171 Gelacio Mata MD Aug 02, 2020 12:21
--- NOTE | 2020-08-02 12:37 | NUR ---
*-*DISCHARGE PLANNING*-* PATIENT HAS BEEN REFERRED TO: [facility] P: [phone] S/W INGRED, STATED DONALDO WONT HE BACK FOR ANOTHER HOUR, CALL BACK.
--- NOTE | 2020-08-02 12:58 | NUR ---
NURSE NOTES: patient has regular diet with no teeth. difficulty chewing. notified Dr. Byrne and received order of regular puree moist until ST see the patient for swallowing eval. order noted and carried out.
[2020-08-02] MEDS ORDERED: cefTRIAXone 1 GM in D5W 55 ML IVPB SCH (13:30)
--- NOTE | 2020-08-02 14:32 | NUR ---
NURSE NOTES: held heparin sq d/t plt 130 today .
[2020-08-02] MEDS: Haloperidol 5mg/ml Inj IM PRN (15:14)
[2020-08-02 16:00] VITALS: BP 148/87
--- NOTE | 2020-08-02 16:55 | NUR ---
*-*DISCHARGE PLANNED*-* PATIENT HAS BEEN ACCEPTED AND WILL BE DISCHARGED BACK TO: [facility] P: [phone] FOR NURSE TO NURSE REPORT ROOM# 16. [facility] SET FOR 5:45PM S/W SKYLER [id number]. PLACED A CALL TO PATIENTS FRIEND IRVING ELDRIDGE, NO ANSWER LEFT VOICE MESSAGE IN REGARDS TO DISCHARGE.
--- NOTE | 2020-08-02 17:07 | NUR ---
NURSE NOTES:WOUND/SKIN ASSESSMENT PATIENT AWAKE AND RESTLESS IN BED. SKIN APPEARS DRY AND INTACT WITH NO INDICATIONS OF BREAKDOWN. RECOMMEND - REPOSITION AT LEAST EVERY 2 HOURS OR TOLERATED AND ELEVATE HEELS WITH PILLOWS IF PATIENT ALLOWS.
--- NOTE | 2020-08-02 17:32 | Diagnostic Imaging Report ---
Indication: Cough Technique: One view of the chest Comparison: 07/26/2020 Findings: The lungs and pleural spaces are clear. The heart is enlarged. No significant change Impression: No acute process
[2020-08-02 18:05] VITALS: BP 148/87
--- NOTE | 2020-08-02 18:43 | Psychiatric Progress Note ---
Psychiatry Progress Note Psychiatry Progress Note Subjective the pt is confused and has episodes o agitation the pt is having waxing and waning o conciseness the pt at baseline is not confused Medications Current Medications Medications (Trade) Dose Ordered Sig/Fabrizio Route PRN Reason Start Time Stop Time Status Last Admin Dose Admin Acetaminophen (Tylenol) 650 mg Q6H PRN ORAL For Headache/ MILD PAIN (1-3) 07/31/20 10:30 08/30/20 10:29 Acetaminophen/ Hydrocodone Bitart ([place] 5/325) 1 tab Q6H PRN ORAL PAIN SCALE 6-10 07/31/20 10:30 08/07/20 10:29 08/01/20 22:34 Amlodipine Besylate (Norvasc) 5 mg BID ORAL 08/01/20 18:00 08/30/20 10:29 08/02/20 18:05 Barium Sulfate (Varibar Honey) 250 ml NOW PRN MC RAD 07/31/20 12:00 08/03/20 11:50 Barium Sulfate (Varibar [place]) 240 ml NOW PRN MC RAD 07/31/20 12:00 08/03/20 11:50 Barium Sulfate (Varibar Pudding) 230 ml NOW PRN MC RAD 07/31/20 12:00 08/03/20 11:50 Barium Sulfate (Varibar Thin Liquid powder) 148 gm NOW PRN MC RAD 07/31/20 12:00 08/03/20 11:50 Ceftriaxone Sodium 1 gm/ Dextrose 55 ml @ 110 mls/hr Q24H IVPB 08/02/20 13:30 08/09/20 13:29 08/02/20 14:39 Dextrose/ Electrolytes 1,000 ml @ 75 mls/hr [id number] IV 07/31/20 12:00 08/30/20 11:59 08/02/20 12:21 Docusate Sodium (Colace) 100 mg TID ORAL 08/01/20 13:00 08/31/20 08:59 08/02/20 18:05 Haloperidol Lactate (Haldol) 5 mg Q6H PRN IM Agitation 07/31/20 14:15 09/14/20 14:14 08/02/20 15:14 Heparin Sodium (Porcine) (Heparin 5000 units/ml) 5,000 units EVERY 8 HOURS SUBQ 08/01/20 06:00 09/15/20 05:59 Mirtazapine (Remeron) 15 mg BEDTIME ORAL 07/31/20 21:00 10/29/20 20:59 08/01/20 22:34 Ondansetron HCl (Zofran) 4 mg Q4HR PRN IVP Nausea & Vomiting 07/31/20 10:30 08/30/20 10:29 Pantoprazole (Protonix) 40 mg EVERY 12 HOURS ORAL 07/31/20 10:30 08/30/20 10:29 08/02/20 09:03 Tamsulosin HCl (Flomax) 0.4 mg Q12HR ORAL 08/01/20 13:00 08/31/20 12:59 08/02/20 09:03 Neurological/Psychiatric: Reports: no symptoms Allergies: Coded Allergies: No Known Allergies (Unverified , 07/22/20) Objective Data Height (Feet): 5 Height (Inches): 7.00 Weight (Pounds): 171 General Appearance: WD/WN, no apparent distress, alert Additional Comments: awake, disoriented. Mood is depressed and agitated. Affect is blunted, congruent with mood. Thought process is concrete. Thought content negative for suicidal or homicidal ideation. Cognition is impaired. Insight and judgment is impaired. y. Assessment/Plan Status: stable, progressing Assessment/Plan: ASSESSMENT: [place] I Acute toxic encephalopathy. Dementia. [place] II Deferred. [place] III Renal failure and hypertension. [place] IV Low. [place] V 25. PLAN: 1. mirtazapine 15 at bedtime. 2. Haldol 5 mg every 6 hours. 3. Treat the underlying cause of encephalopathy Cassidy Calhoun MD Aug 02, 2020 18:43
--- NOTE | 2020-08-02 19:03 | Internal Med Progress Note ---
Subjective Date of Service: Aug 02, 2020 Physician Name Shai Zimmer Attending Physician Andrés Rothman MD Current Medications Medications (Trade) Dose Ordered Sig/Fabrizio Route PRN Reason Start Time Stop Time Status Last Admin Dose Admin Acetaminophen (Tylenol) 650 mg Q6H PRN ORAL For Headache/ MILD PAIN (1-3) 07/31/20 10:30 08/30/20 10:29 Acetaminophen/ Hydrocodone Bitart ([place] 5/325) 1 tab Q6H PRN ORAL PAIN SCALE 6-10 07/31/20 10:30 08/07/20 10:29 08/01/20 22:34 Amlodipine Besylate (Norvasc) 5 mg BID ORAL 08/01/20 18:00 08/30/20 10:29 08/02/20 18:05 Barium Sulfate (Varibar Honey) 250 ml NOW PRN MC RAD 07/31/20 12:00 08/03/20 11:50 Barium Sulfate (Varibar [place]) 240 ml NOW PRN MC RAD 07/31/20 12:00 08/03/20 11:50 Barium Sulfate (Varibar Pudding) 230 ml NOW PRN MC RAD 07/31/20 12:00 08/03/20 11:50 Barium Sulfate (Varibar Thin Liquid powder) 148 gm NOW PRN MC RAD 07/31/20 12:00 08/03/20 11:50 Ceftriaxone Sodium 1 gm/ Dextrose 55 ml @ 110 mls/hr Q24H IVPB 08/02/20 13:30 08/09/20 13:29 08/02/20 14:39 Dextrose/ Electrolytes 1,000 ml @ 75 mls/hr [id number] IV 07/31/20 12:00 08/30/20 11:59 08/02/20 12:21 Docusate Sodium (Colace) 100 mg TID ORAL 08/01/20 13:00 08/31/20 08:59 08/02/20 18:05 Haloperidol Lactate (Haldol) 5 mg Q6H PRN IM Agitation 07/31/20 14:15 09/14/20 14:14 08/02/20 15:14 Heparin Sodium (Porcine) (Heparin 5000 units/ml) 5,000 units EVERY 8 HOURS SUBQ 08/01/20 06:00 09/15/20 05:59 Mirtazapine (Remeron) 15 mg BEDTIME ORAL 07/31/20 21:00 10/29/20 20:59 08/01/20 22:34 Ondansetron HCl (Zofran) 4 mg Q4HR PRN IVP Nausea & Vomiting 07/31/20 10:30 08/30/20 10:29 Pantoprazole (Protonix) 40 mg EVERY 12 HOURS ORAL 07/31/20 10:30 08/30/20 10:29 08/02/20 09:03 Tamsulosin HCl (Flomax) 0.4 mg Q12HR ORAL 08/01/20 13:00 08/31/20 12:59 08/02/20 09:03 Allergies: Coded Allergies: No Known Allergies (Unverified , 07/22/20) ROS Limited/Unobtainable: No Constitutional: Reports: no symptoms HEENT: Reports: no symptoms Cardiovascular: Reports: no symptoms Respiratory: Reports: no symptoms Gastrointestinal/Abdominal: Reports: no symptoms Genitourinary: Reports: no symptoms Neurologic/Psychiatric: Reports: no symptoms Subjective 75 YO M admitted with agitation and cristel depression. Cover for Int Jesús - Dr Rothman Objective Last Vital Signs Date Time Temp Pulse Resp B/P (MAP) Pulse Ox O2 Delivery O2 Flow Rate FiO2 08/02/20 18:05 81 148/87 08/02/20 16:00 97.5 20 94 08/02/20 09:00 Room Air Laboratory Tests Test 08/02/20 06:05 White Blood Count 3.5 K/UL (4.8-10.8) L Red Blood Count 4.54 M/UL (4.70-6.10) L Hemoglobin 15.1 G/DL (14.2-18.0) Hematocrit 43.5 % (42.0-52.0) Mean Corpuscular Volume 96 FL (80-99) Mean Corpuscular Hemoglobin 33.2 PG (27.0-31.0) H Mean Corpuscular Hemoglobin Concent 34.6 G/DL (32.0-36.0) Red Cell Distribution Width 13.0 % (11.6-14.8) Platelet Count 130 K/UL (150-450) L Mean Platelet Volume 9.0 FL (6.5-10.1) Neutrophils (%) (Auto) % (45.0-75.0) Lymphocytes (%) (Auto) % (20.0-45.0) Monocytes (%) (Auto) % (1.0-10.0) Eosinophils (%) (Auto) % (0.0-3.0) Basophils (%) (Auto) % (0.0-2.0) Differential Total Cells Counted 100 Neutrophils % (Manual) 43 % (45-75) L Lymphocytes % (Manual) 25 % (20-45) Monocytes % (Manual) 29 % (1-10) H Eosinophils % (Manual) 3 % (0-3) Basophils % (Manual) 0 % (0-2) Band Neutrophils 0 % (0-8) Platelet Estimate Decreased L Platelet Morphology Normal Red Blood Cell Morphology Normal Sodium Level 143 MMOL/L (136-145) Potassium Level 3.7 MMOL/L (3.5-5.1) Chloride Level 107 MMOL/L (98-107) Carbon Dioxide Level 26 MMOL/L (21-32) Anion Gap 10 mmol/L (5-15) Blood Urea Nitrogen 19 mg/dL (7-18) H Creatinine 1.5 MG/DL (0.55-1.30) H Estimat Glomerular Filtration Rate 45.7 mL/min (>60) Glucose Level 93 MG/DL (74-106) Uric Acid 6.5 MG/DL (2.6-7.2) Calcium Level 8.6 MG/DL (8.5-10.1) Phosphorus Level 2.7 MG/DL (2.5-4.9) Magnesium Level 2.0 MG/DL (1.8-2.4) Iron Level 66 ug/dL (50-175) Total Iron Binding Capacity 185 ug/dL (250-450) L Percent Iron Saturation 36 % (15-50) Unsaturated Iron Binding 119 ug/dL (112-346) Ferritin 664 NG/ML (8-388) H Total Bilirubin 1.1 MG/DL (0.2-1.0) H Direct Bilirubin 0.5 MG/DL (0.0-0.3) H Gamma Glutamyl Transpeptidase 55 U/L (5-85) Aspartate Amino Transf (AST/SGOT) 121 U/L (15-37) H Alanine Aminotransferase (ALT/SGPT) 105 U/L (12-78) H Alkaline Phosphatase 67 U/L (46-116) Ammonia 21 umol/L (11-32) C-Reactive Protein, Quantitative 1.8 mg/dL (0.00-0.90) H Pro-B-Type Natriuretic Peptide 212 pg/mL (0-125) H Total Protein 7.6 G/DL (6.4-8.2) Albumin 3.9 G/DL (3.4-5.0) Globulin 3.7 g/dL Albumin/Globulin Ratio 1.1 (1.0-2.7) Triglycerides Level 113 MG/DL (30-150) Cholesterol Level 145 MG/DL (< 200) LDL Cholesterol 95 mg/dL (<100) HDL Cholesterol 30 MG/DL (40-60) L Cholesterol/HDL Ratio 4.8 (3.3-4.4) H Lipase 147 U/L (73-393) Folate 9.1 NG/ML (8.6-58.9) Microbiology Date/Time Source Procedure Growth Status 08/01/20 16:15 External Cath Urine Culture - Preliminary Gram Negative Jacob Resulted 07/31/20 06:30 Nasopharynx SARS-CoV-2 RdRp Gene Assay - Final Complete 07/31/20 06:00 Rectum VRE Culture - Final NO VANCOMYCIN RESISTANT ENTEROCOCCUS ... Complete 07/31/20 06:00 Rectal Mucosa - Final NO CARBAPENEM-RESISTANT ENTEROBACTERI... Complete 07/31/20 06:00 Nasal Nares MRSA Culture - Final NO METHICILLIN RESISTANT STAPH AUREUS... Complete Intake and Output 08/01/20 08/02/20 19:00 07:00 Intake Total 10 ml Output Total 30 ml Balance -20 ml Intake Oral 10 ml Output Urine Total 30 ml # Voids 1 3 Objective PHYSICAL EXAMINATION: GENERAL: The patient is a well-developed and well-nourished male, in no apparent distress. HEENT: Eyes, pupils are equal and responsive to light and accommodation. Extraocular movements are intact. NECK: Supple without lymphadenopathy. CHEST: Lungs are clear to auscultation bilaterally without wheezes or rales. CARDIOVASCULAR: Regular rate. S1, S2 are normal without murmurs, rubs, or gallops. ABDOMEN: Soft, nontender, and nondistended. Positive bowel sounds. No evidence of hepatosplenomegaly. Currently, no rebound or guarding noted. EXTREMITIES: Negative for clubbing, cyanosis, or edema. RECTAL/GENITAL: Refused. NEUROLOGIC: Cranial nerves II through XII are grossly intact without focal deficits. Motor strength is 5/5 bilaterally. Deep tendon reflexes are 2+ plantar. Assessment/Plan Assessment/Plan ASSESSMENT: This is a 75-year-old male with: 1. Agitation. 2. Major depression. 3. Suicidal ideation. 4. Chronic renal failure. 5. Morbid obesity. 6. Hypertension. 7. Thoracic vertebral compression fracture. 8. Lumbar vertebral compression fracture. TREATMENT: 1. Agitation/major depression/suicidal ideation. A psychiatric consultation has been obtained with Dr. Calhoun. Follow recommendations of Psychiatry. 2. Chronic renal failure. The patient is currently receiving intravenous fluids. 3. Morbid obesity. 4. Hypertension. Continue amlodipine as above. 5. Thoracic/lumbar/vertebral compression fractures. 6. Discharge to [facility] today Shai Zimmer MD Aug 02, 2020 19:02
--- NOTE | 2020-08-02 19:19 | NUR ---
NURSE NOTES: patient was discharged to [facility] via ambulance with stable condition. alert to name. verbally responsive. no respiratory distress noted on room air. no pain at this time. report was given to snf. spoke to KRYSTYNA Velazquez supervisor winding department. no belongings. provided dc packet. patient was not able to sign on the document. verified with KRYSTYNA Stewart. removed IV and ID upon discharge. provide hygiene care. notified Lizeth/friend regarding dc plan.
--- NOTE | 2020-08-03 07:48 | Discharge Summary ---
Discharge Summary Discharge Summary _ DATE OF ADMISSION: 07/31/2020 DATE OF DISCHARGE: 08/02/2020 DISCHARGED BY: Dr. Rothman REASON FOR ADMISSION: 75 years old male, who was recently discharged from the hospital and sent to the nursing facility due to inability to care for himself , was sent for evaluation due to agitation and suicidal thoughts. He apparently expressed suicidal thoughts to paramedics, and police placed him on [id number] hold. No reported fever and chills. No chest pain or shortness of breath. No diarrhea Upon evaluation vital signs were stable. Laboratory work-up was significant for acute kidney injury with BUN 32, creatinine 1.9; electrolytes were stable. Glucose 125. Stable LFT. Mild leukopenia with WBC 4.3 , stable hemoglobin, and hematocrit ; platelet count 146. Urinalysis revealed no evidence of UTI, +2 protein . Urine toxicology screen was negative. Serum alcohol , Tylenol and salicylates were all negative. In emergency department patient received a liter of fluid along with anxiolytic and admitted to medical surgical floor for further management CONSULTANTS: pulmonary/critical care Dr. Byrne sap bods developer Dr. Mata psychiatrist Dr. Calhoun [facility] COURSE: Patient admitted to medical surgical floor. Patient was hydrated. Renal parameters and electrolytes were closely monitored, electrolytes corrected as needed. Prior to discharge creatinine from 1.9 down to 1.5, all electrolytes remained stable. Ammonia stable. Lipid panel stable. TSH within normal limits. According to sap bods developer patient had acute on chronic renal failure likely due to dehydration. Patient was recommended to avoid NSAID . Urine culture showed gram-negative rods. Patient received antibiotics. Flomax continued. Pain management was addressed as needed. Symptomatic care provided. DVT prophylaxis provided. Per psychiatrist, patient had waxing and waning of consciousness , however at baseline patient was not confused. Per psychiatrist, patient was not in any danger to self or others. Patient was started on Remeron. Haldol was prescribed as needed. Psychiatrist recommended to treat underlying cause of encephalopathy. Patient clinically stabilized and was ready for transfer back to the long-term facility for continuation of care. FINAL DIAGNOSES: Acute on chronic renal failure Toxic metabolic encephalopathy UTI Depression Agitation Hypertension Old thoracic vertebral and lumbar vertebral compression fracture BPH DISCHARGE MEDICATIONS: See Medication Reconciliation list. DISCHARGE INSTRUCTIONS: Patient was discharged to the long-term facility. Follow up with medical doctor at the facility. I have been assigned to dictate discharge summary for this account. I was not involved in the patient's management. Aida Howard NP Aug 03, 2020 07:48
== END 2020-08-02 20:26 | DRG 682 ==
LOC: EDBD 03:59 → EMR 04:26 → 4E 04:37 → EDBEDREQ 05:54
DX: N17.9 Acute kidney failure, unspecified (principal); G92 Toxic encephalopathy; F33.3 Major depressive disorder, recurrent, severe with psychotic symptoms; F03.91 Unspecified dementia, unspecified severity, with behavioral disturbance; R45.851 Suicidal ideations; N39.0 Urinary tract infection, site not specified; I12.9 Hypertensive chronic kidney disease with stage 1 through stage 4 chronic kidney disease, or unspecified chronic kidney disease; N40.0 Benign prostatic hyperplasia without lower urinary tract symptoms; Z60.4 Social exclusion and rejection; N18.9 Chronic kidney disease, unspecified; E66.01 Morbid (severe) obesity due to excess calories; Z68.26 Body mass index [BMI] 26.0-26.9, adult; E86.0 Dehydration; Z74.09 Other reduced mobility; S22.000D Wedge compression fracture of unspecified thoracic vertebra, subsequent encounter for fracture with routine healing; S32.000D Wedge compression fracture of unspecified lumbar vertebra, subsequent encounter for fracture with routine healing; X58.XXXD Exposure to other specified factors, subsequent encounter; Z68.32 Body mass index [BMI] 32.0-32.9, adult
CPT/HCPCS: 36415; 71045; 80053; 80061; 80307; 81003; 82140; 82248; 82728; 82746; 82977; 83036; 83540; 83550; 83690; 83735; 83880; 84100; 84443; 84550; 85007; 85025; 86140; 87081; 87086; 87181; 96361; 96374; 99285; G0480; U0002

== ENCOUNTER 2020-08-18 12:44 | Inpatient (IN) | payer MEDICARE ==
[~2020-08-18] VITALS: Ht 182.9 cm; Wt 81.6 kg
[~2020-08-18 12:44] MED LIST changes: +ACETAMINOPHEN325 M1 ORAL; +AMLODIPINE BESYL5 MG ORAL; +DOCUSATE SODIU100 MG ORAL; +HALDOL INJECT5 MG/ML IM; +MIRTAZAPINE15 M3 ORAL; +PERIDEX15 ML ORAL; +ZOLPIDEM TARTRAT5 MG ORAL
[2020-08-18] MEDS ORDERED: PANTOPRAZOLE SO40 MG ORAL (12:52)
[2020-08-18] MEDS ORDERED: MULTIVITAMINS1 EAC2 ORAL (12:52)
[2020-08-18] MEDS ORDERED: RISPERDAL2 MG ORAL (12:52)
--- NOTE | 2020-08-18 12:55 | Emergency Room Report ---
History of Present Illness General Chief Complaint: Abnormal Labs Source: Medical Record Present Illness HPI 75-year-old male alert o x0 at baseline here with abnormal labs. Per the long term report patient had a sodium of 155, BUN 44, creatinine 1.9. Patient is a history of hypertension and BPH. Per the paramedics the patient is currently at his baseline. Allergies: Coded Allergies: No Known Allergies (Unverified , 07/22/20) COVID-19 Screening Contact w/high risk pt: No Experienced COVID-19 symptoms?: No COVID-19 Testing performed CHIEF LIBRARIAN WORK WITH BLIND: No Nursing Documentation-PMH Hx Cardiac Problems: Yes - difficulty walking Hx Hypertension: Yes Hx Cancer: No Hx Gastrointestinal Problems: No - PROSTATE HYPERTROPHY Hx Neurological Problems: Yes Hx Dementia: Yes Review of Systems All Other Systems: limited - Dementia Physical Exam Vital Signs Date Time Temp Pulse Resp B/P (MAP) Pulse Ox O2 Delivery O2 Flow Rate FiO2 08/18/20 12:39 97.9 76 18 120/70 (87) 96 Room Air Sp02 EP Interpretation: reviewed, normal General Appearance: no apparent distress, non-toxic Head: normocephalic, atraumatic Eyes: bilateral eye normal inspection, bilateral eye PERRL ENT: hearing grossly normal, normal pharynx, no angioedema, normal voice Neck: full range of motion, supple/symm/no masses Respiratory: chest non-tender, lungs clear, normal breath sounds, other - nonVerbal Cardiovascular #1: regular rate, rhythm, no edema Cardiovascular #2: 2+ carotid (R), 2+ carotid (L), 2+ radial (R), 2+ radial (L), 2+ dorsalis pedis (R), 2+ dorsalis pedis (L) Gastrointestinal: normal bowel sounds, non tender, soft, non-distended, no guarding, no rebound, other - Midline lower abdominal surgical scar well-healed Rectal: deferred Genitourinary: normal inspection, no CVA tenderness Musculoskeletal: back normal, normal range of motion, calf tenderness, gait/station normal, non-tender Neurologic: other - Nonverbal, alert and oriented x0. Localizes to noxious stimuli Psychiatric: other - Nonverbal, alert and oriented x0 Lymphatic: no adenopathy Medical Decision Making Diagnostic Impression: Primary Impression: Renal failure (ARF), acute on chronic Additional Impressions: Failure to thrive in adult Dehydration ER Course Laboratory Tests Test 11/18/20 13:00 White Blood Count 4.4 K/UL (4.8-10.8) L Red Blood Count 5.50 M/UL (4.70-6.10) Hemoglobin 17.7 G/DL (14.2-18.0) Hematocrit 56.7 % (42.0-52.0) H Mean Corpuscular Volume 103 FL (80-99) H Mean Corpuscular Hemoglobin 32.1 PG (27.0-31.0) H Mean Corpuscular Hemoglobin Concent 31.2 G/DL (32.0-36.0) L Red Cell Distribution Width 13.2 % (11.6-14.8) Platelet Count 110 K/UL (150-450) L Mean Platelet Volume 9.4 FL (6.5-10.1) Neutrophils (%) (Auto) % (45.0-75.0) Lymphocytes (%) (Auto) % (20.0-45.0) Monocytes (%) (Auto) % (1.0-10.0) Eosinophils (%) (Auto) % (0.0-3.0) Basophils (%) (Auto) % (0.0-2.0) Differential Total Cells Counted 100 Neutrophils % (Manual) 50 % (45-75) Lymphocytes % (Manual) 30 % (20-45) Monocytes % (Manual) 16 % (1-10) H Eosinophils % (Manual) 3 % (0-3) Basophils % (Manual) 1 % (0-2) Band Neutrophils 0 % (0-8) Platelet Estimate Decreased L Platelet Morphology Normal Red Blood Cell Morphology Normal Sodium Level 158 MMOL/L (136-145) H Potassium Level 4.0 MMOL/L (3.5-5.1) Chloride Level 120 MMOL/L (98-107) H Carbon Dioxide Level 28 MMOL/L (21-32) Anion Gap 10 mmol/L (5-15) Blood Urea Nitrogen 51 mg/dL (7-18) H Creatinine 2.3 MG/DL (0.55-1.30) H Estimated Glomerular Filtration Rate 27.9 mL/min (>60) Glucose Level 106 MG/DL (74-106) Lactic Acid Level 1.30 mmol/L (0.4-2.0) Calcium Level 9.2 MG/DL (8.5-10.1) Total Bilirubin 1.1 MG/DL (0.2-1.0) H Direct Bilirubin 0.7 MG/DL (0.0-0.3) H Aspartate Amino Transferase (AST) 78 U/L (15-37) H Alanine Aminotransferase (ALT) 171 U/L (12-78) H Alkaline Phosphatase 145 U/L (46-116) H Total Creatine Kinase 54 U/L (26-308) Creatine Kinase MB 1.6 NG/ML (0.0-3.6) Creatine Kinase MB Relative Index 2.9 Troponin I 0.013 ng/mL (0.000-0.056) Total Protein 8.4 G/DL (6.4-8.2) H Albumin 3.6 G/DL (3.4-5.0) Globulin 4.8 g/dL Albumin/Globulin Ratio 0.8 (1.0-2.7) L Microbiology Date/Time Source Procedure Growth Status 08/18/20 13:00 Nasopharynx SARS-CoV-2 RdRp Gene Assay - Final Complete Chest x-ray: No infiltrate/effusion. Mediastinum within normal limits. No consolidation. No free air under the diaphragm. No bony abnormality 75-year-old male here from a long term with abnormal labs. The patient what is at his normal baseline mental status of alert and oriented x0. He is Croatian-speaking only. He had elevated BUN and creatinine compared to his normal baseline. Patient was given IV normal saline in the emergency department and began have slight improvement in his mental status. Sodium and chloride were increased with patient had a normal potassium. Patient had T wave inversions in leads II, 3, V4, V5, V6 which appeared similar to previous EKG. Normal troponin. Admitted to telemetry. Currently awaiting urinalysis. Last Vital Signs Date Time Temp Pulse Resp B/P (MAP) Pulse Ox O2 Delivery O2 Flow Rate FiO2 08/18/20 12:39 97.9 76 18 120/70 (87) 96 Room Air [place] Maldonado M.D. Aug 18, 2020 12:55
[2020-08-18 13:00] VITALS: BP 111/76
[2020-08-18 13:22] LABS: HEMATOCRIT 56.7 % (42.0-52.0); HEMOGLOBIN 17.7 G/DL (14.2-18.0); MEAN CORPUSCULAR VOLUME 103 FL (80-99); PLATELET COUNT 110 K/UL (150-450); RED CELL DISTRIBUTION WIDTH 13.2 % (11.6-14.8); WHITE BLOOD COUNT 4.4 K/UL (4.8-10.8)
[2020-08-18 13:43] LABS: CALCIUM 9.2 MG/DL (8.5-10.1); CREATININE 2.3 MG/DL (0.55-1.30)
[2020-08-18 13:56] LABS: ALBUMIN 3.6 G/DL (3.4-5.0); ALBUMIN/GLOBULIN RATIO 0.8 (1.0-2.7); BILIRUBIN,TOTAL 1.1 MG/DL (0.2-1.0); CKMB 1.6 NG/ML (0.0-3.6)
[2020-08-18 13:57] LABS: BILIRUBIN,DIRECT 0.7 MG/DL (0.0-0.3)
[2020-08-18 15:00] VITALS: BP 122/80
[2020-08-18] MEDS ORDERED: Zolpidem 5mg tab ORAL PRN (15:00)
[2020-08-18] MEDS ORDERED: Miralax 17gm pkt ORAL PRN (15:00)
[2020-08-18 15:37] LABS: APPEARANCE,URINE SLIGHTLY CLOUDY; BILIRUBIN, URINE NEGATIVE (NEGATIVE); GLUCOSE, URINE (UA) NEGATIVE (NEGATIVE); KETONES,URINE NEGATIVE (NEGATIVE); LEUKOCYTE ESTERASE ,URINE 1+ (NEGATIVE); NITRITE,URINE NEGATIVE (NEGATIVE); PH,URINE 5 (4.5-8.0); PROTEIN,URINE 2+ (NEGATIVE); UROBILINOGEN,URINE 4 MG/DL (0.0-1.0)
[2020-08-18 15:38] LABS: COLOR,URINE YELLOW
[2020-08-18 16:20] VITALS: BP 149/80
--- NOTE | 2020-08-18 16:32 | Diagnostic Imaging Report ---
Indication: Altered mental status, cough Technique: XRAY Chest 1v Comparison: 08/02/2020 Findings: Heart size and mediastinal contours are within normal limits for AP technique. Very mild streaky opacities noted at the left base. No pleural effusion or pneumothorax. Osseous structures demonstrate no acute abnormality. Impression: Mild streaky opacities noted at the left base favored to represent subsegmental atelectasis or scarring. Possibility of developing infiltrate felt less likely but not excluded. Correlate clinically.
[2020-08-18] MEDS: Haloperidol 5mg/ml Inj IM PRN (16:49)
--- NOTE | 2020-08-18 17:09 | Consultation ---
Consult Note Consult Note I am asked to evaluate the patient at the request of Dr. Rothman for renal failure and fluid and electrolyte management Patient is very well-known to me from his recent admission here at [facility] He was discharged last with serum creatinine of 1.5 Currently in the emergency room the patient have his serum creatinine of 2.3 with a BUN of 53 and serum sodium of 158 HPI 75-year-old male alert o x0 at baseline here with abnormal labs. Per the residential report patient had a sodium of 155, BUN 44, creatinine 1.9. Patient is a history of hypertension and BPH. Per the paramedics the patient is currently at his baseline. 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 NECK: Supple without lymphadenopathy. CHEST: Lungs are clear to auscultation bilaterally without wheezes or rales. Decreased breath sound over the bases CARDIOVASCULAR: Regular rate. S1, S2 are normal ABDOMEN: Soft, nontender, mildly distended. Positive bowel sounds. No evidence of hepatosplenomegaly. Currently, no rebound or guarding noted. EXTREMITIES: Negative for clubbing, cyanosis, or edema. . Assessment/Plan Acute renal failure Dehydration, leading to free water deficit and hypernatremia History of hypertension BPH History of lumbar vertebral compression fracture History of hypertension History of depression agitation IV hydration Urine studies and culture Monitor renal parameters Pain medication as needed Psych management as needed Per orders Gelacio Mata MD Aug 18, 2020 17:09
[2020-08-18] MEDS: Tamsulosin 0.4mg cap ORAL SCH (18:00)
[2020-08-18 18:24] LABS: CREATINE KINASE 62 U/L (26-308); PHOSPHORUS 3.4 MG/DL (2.5-4.9)
[2020-08-18] MEDS ORDERED: Varibar Thin Liquid powder 148gm MC PRN (19:15)
[2020-08-18] MEDS ORDERED: Varibar Nectar 240ml MC PRN (19:15)
[2020-08-18] MEDS ORDERED: Varibar Honey 250ml MC PRN (19:15)
[2020-08-18] MEDS ORDERED: Varibar Pudding 230ml MC PRN (19:15)
--- NOTE | 2020-08-18 19:58 | History & Physical ---
History and Physical History & Physicial Andrés Rothman MD Aug 18, 2020 19:58
[2020-08-18 20:00] VITALS: BP 143/71
[2020-08-18] MEDS: Heparin 5000 units/ml inj SUBQ SCH (21:00)
[2020-08-18 23:57] VITALS: BP 141/69
[2020-08-19 04:00] VITALS: BP 128/77
[2020-08-19 07:13] LABS: ALANINE AMINOTRANSFERASE 136 U/L (12-78); ALBUMIN 3.2 G/DL (3.4-5.0); ALBUMIN/GLOBULIN RATIO 0.8 (1.0-2.7); ALKALINE PHOSPHATASE 120 U/L (46-116); ANION GAP 10 mmol/L (5-15); ASPARTATE AMINO TRANSFERASE 64 U/L (15-37); BILIRUBIN,TOTAL 1.3 MG/DL (0.2-1.0); BLOOD UREA NITROGEN 46 mg/dL (7-18); CALCIUM 8.5 MG/DL (8.5-10.1); CARBON DIOXIDE 25 MMOL/L (21-32); CHLORIDE 124 MMOL/L (98-107); CHOLESTEROL 147 MG/DL (< 200); HDL CHOLESTEROL 21 MG/DL (40-60); POTASSIUM 3.5 MMOL/L (3.5-5.1); SODIUM 159 MMOL/L (136-145); TRIGLYCERIDES 138 MG/DL (30-150)
[2020-08-19 07:42] LABS: BILIRUBIN,DIRECT 0.6 MG/DL (0.0-0.3)
[2020-08-19 08:00] VITALS: BP 137/87
[2020-08-19 08:53] LABS: PHOSPHORUS 3.4 MG/DL (2.5-4.9)
[2020-08-19] MEDS ORDERED: Tamsulosin 0.4mg cap ORAL SCH (09:00)
[2020-08-19] MEDS: Heparin 5000 units/ml inj SUBQ SCH ×2 (09:00→21:00)
[2020-08-19 09:01] LABS: HEMATOCRIT 48.2 % (42.0-52.0); HEMOGLOBIN 15.7 G/DL (14.2-18.0); MEAN CORPUSCULAR VOLUME 100 FL (80-99); PLATELET COUNT 108 K/UL (150-450); RED BLOOD COUNT 4.83 M/UL (4.70-6.10); RED CELL DISTRIBUTION WIDTH 13.1 % (11.6-14.8); WHITE BLOOD COUNT 4.1 K/UL (4.8-10.8)
[2020-08-19] MEDS: Tamsulosin 0.4mg cap ORAL SCH ×2 (09:46→18:00)
--- NOTE | 2020-08-19 10:26 | Nephrology Progress Note ---
Assessment/Plan Problem List: (1) ANGI (acute kidney injury) (2) Renal failure (ARF), acute on chronic (3) Dehydration (4) UTI (urinary tract infection) (5) BPH (benign prostatic hyperplasia) (6) Agitation due to dementia Assessment Acute renal failure Dehydration, leading to free water deficit and hypernatremia History of hypertension BPH History of lumbar vertebral compression fracture History of hypertension History of depression agitation Plan August 19: Patient periodically agitated and pulls the IV out. On D5W 100 cc an hour. Serum creatinine lowering. Will increase IV fluid to [address] evaluation pending. Labs and medications reviewed. August 18: IV hydration Urine studies and culture Monitor renal parameters Pain medication as needed Psych management as needed Per orders Subjective ROS Limited/Unobtainable: Yes Objective Objective Last 24 Hour Vital Signs Date Time Temp Pulse Resp B/P (MAP) Pulse Ox O2 Delivery O2 Flow Rate FiO2 08/19/20 09:47 60 131/56 08/19/20 04:00 97.7 81 16 128/77 (94) 95 08/18/20 23:57 98.1 76 16 141/69 (93) 94 08/18/20 21:00 Nasal Cannula 2.0 08/18/20 20:00 97.9 71 16 143/71 (95) 94 08/18/20 16:20 97.3 80 16 149/80 (103) 94 08/18/20 16:10 98.7 76 20 134/66 98 Room Air 08/18/20 15:00 98.5 80 15 122/80 100 Room Air 08/18/20 13:00 97.9 77 16 111/76 99 Room Air 08/18/20 12:39 97.9 76 18 120/70 (87) 96 Room Air Intake and Output 08/18/20 08/19/20 19:00 07:00 Intake Total 1000 ml Balance 1000 ml Intake IV Total 1000 ml # Voids 1 # Bowel Movements 1 Current Medications Medications (Trade) Dose Ordered Sig/Fabrizio Route PRN Reason Start Time Stop Time Status Last Admin Dose Admin Acetaminophen (Tylenol) 650 mg Q4H PRN ORAL fever 08/18/20 15:00 09/17/20 14:59 Amlodipine Besylate (Norvasc) 5 mg DAILY ORAL 08/19/20 09:00 09/18/20 08:59 08/19/20 09:47 Barium Sulfate (Varibar Honey) 250 ml NOW PRN RAD 08/18/20 19:15 08/21/20 19:14 Barium Sulfate (Varibar [place]) 240 ml NOW PRN RAD 08/18/20 19:15 08/21/20 19:14 Barium Sulfate (Varibar Pudding) 230 ml NOW PRN RAD 08/18/20 19:15 08/21/20 19:14 Barium Sulfate (Varibar Thin Liquid powder) 148 gm NOW PRN RAD 08/18/20 19:15 08/21/20 19:14 Clonidine HCl (Catapres Tab) 0.1 mg Q4H PRN ORAL For BP above 160 systolic 08/18/20 15:00 11/16/20 14:59 Dextrose 1,000 ml @ 100 mls/hr Q10H IV 08/18/20 17:15 09/17/20 17:14 08/19/20 03:29 Dextrose (Dextrose 50%) 25 ml Q30M PRN IV Hypoglycemia 08/18/20 15:00 11/16/20 14:59 Dextrose (Dextrose 50%) 50 ml Q30M PRN IV Hypoglycemia 08/18/20 15:00 11/16/20 14:59 Haloperidol Lactate (Haldol) 5 mg Q6H PRN IM agitation 08/18/20 15:00 10/02/20 14:59 08/18/20 16:49 Heparin Sodium (Porcine) (Heparin 5000 units/ml) 5,000 units EVERY 12 HOURS SUBQ 08/18/20 21:00 10/02/20 20:59 Ondansetron HCl (Zofran) 4 mg Q6H PRN IVP Nausea & Vomiting 08/18/20 15:00 09/17/20 14:59 Pantoprazole (Protonix) 40 mg BID ORAL 08/18/20 18:00 09/18/20 06:29 08/19/20 09:46 Polyethylene Glycol (Miralax) 17 gm HSPRN PRN ORAL Constipation 08/18/20 15:00 09/17/20 14:59 Risperidone (RisperDAL) 2 mg DAILY ORAL 08/19/20 09:00 10/03/20 08:59 08/19/20 09:46 Tamsulosin HCl (Flomax) 0.4 mg BID ORAL 08/18/20 18:00 09/18/20 08:59 08/19/20 09:46 Zolpidem Tartrate (Ambien) 5 mg HSPRN PRN ORAL Insomnia 08/18/20 15:00 08/25/20 14:59 Laboratory Tests 08/18/20 13:00: White Blood Count 4.4L, Red Blood Count 5.50, Hemoglobin 17.7, Hematocrit 56.7H, Mean Corpuscular Volume 103H, Mean Corpuscular Hemoglobin 32.1H, Mean Corpuscular Hemoglobin Concent 31.2L, Red Cell Distribution Width 13.2, Platelet Count 110L, Mean Platelet Volume 9.4, Neutrophils (%) (Auto) , Lymphocytes (%) (Auto) , Monocytes (%) (Auto) , Eosinophils (%) (Auto) , Basophils (%) (Auto) , Differential Total Cells Counted 100, Neutrophils % (Manual) 50, Lymphocytes % (Manual) 30, Monocytes % (Manual) 16H, Eosinophils % (Manual) 3, Basophils % (Manual) 1, Band Neutrophils 0, Platelet Estimate DecreasedL, Platelet Morphology Normal, Red Blood Cell Morphology Normal, Sodium Level 158H, Potassium Level 4.0, Chloride Level 120H, Carbon Dioxide Level 28, Anion Gap 10, Blood Urea Nitrogen 51H, Creatinine 2.3H, Estimat Glomerular Filtration Rate 2 7.9, Glucose Level 106, Osmolality 355H, Lactic Acid Level 1.30, Uric Acid 13.8H , Calcium Level 9.2, Phosphorus Level 3.4, Magnesium Level 3.1H, Total Bilirubin 1.1H, Direct Bilirubin 0.7H, Aspartate Amino Transf (AST/SGOT) 78H, Alanine Aminotransferase (ALT/SGPT) 171H, Alkaline Phosphatase 145H, Total Creatine Kinase 62, Creatine Kinase MB 1.6, Creatine Kinase MB Relative Index 2.9, Troponin I 0.013, Total Protein 8.4H, Albumin 3.6, Globulin 4.8, Albumin/Globulin Ratio 0.8L, Free Thyroxine 1.36, Free Triiodothyronine 2.6, Cortisol [Pending] 08/18/20 14:15: Urine Color Yellow, Urine Appearance Slightly cloudy, Urine pH 5, Urine Specific [place] 1.020, Urine Protein 2+H, Urine Glucose (UA) Negative, Urine Ketones Negative, Urine Blood 3+H, Urine Nitrite Negative, Urine Bilirubin Negative, Urine Urobilinogen 4H, Urine Leukocyte Esterase 1+H, Urine RBC 10-15H, Urine WBC 0-2, Urine Squamous Epithelial Cells Occasional, Urine Uric Acid Crystals ModerateH, Urine Bacteria Few, Urine Eosinophils None seen, Urine Osmolality 746H, Urine Random Sodium < 20L, Urine Random Chloride 53L, Urine Potassium Timed 85H 08/19/20 05:45: Sodium Level 159H, Potassium Level 3.5, Chloride Level 124H, Carbon Dioxide Level 25, Anion Gap 10, Blood Urea Nitrogen 46H, Creatinine 2.0H, Estimat [place]ular Filtration Rate 32.8, Glucose Level 118H, Uric Acid 12.7H, Calcium Level 8.5, Phosphorus Level 3.4, Magnesium Level 2.9H, Total Bilirubin 1.3H, Direct Bilirubin 0.6H, Aspartate Amino Transf (AST/SGOT) 64H, Alanine Aminotransferase (ALT/SGPT) 136H, Alkaline Phosphatase 120H, Total Protein 7.2, Albumin 3.2L, Globulin 4.0, Albumin/Globulin Ratio 0.8L, Hemoglobin A1c 5.7, C-Reactive Protein, Quantitative 2.5H, Pro-B-Type Natriuretic Peptide 93, Triglycerides Level 138, Cholesterol Level 147, LDL Cholesterol 96, HDL Cholesterol 21L, Cholesterol/HDL Ratio 7.0H, Thyroid Stimulating Hormone (TSH) 2.639 08/19/20 08:50: White Blood Count 4.1L, Red Blood Count 4.83, Hemoglobin 15.7, Hematocrit 48.2, Mean Corpuscular Volume 100H, Mean Corpuscular Hemoglobin 32.5H, Mean Corpuscular Hemoglobin Concent 32.6, Red Cell Distribution Width 13.1, Platelet Count 108L, Mean Platelet Volume 10.1, Neutrophils (%) (Auto) , Lymphocytes (%) (Auto) , Monocytes (%) (Auto) , Eosinophils (%) (Auto) , Basophils (%) (Auto) , Differential Total Cells Counted 100, Neutrophils % (Manual) 37L, Lymphocytes % (Manual) 26, Monocytes % (Manual) 31H, Eosinophils % (Manual) 3, Basophils % (Manual) 3H, Band Neutrophils 0, Platelet Estimate DecreasedL, Platelet Morphology Normal, Macrocytosis 1+ Height (Feet): 6 Height (Inches): 0.00 Weight (Pounds): 180 General Appearance: lethargic, confused Cardiovascular: tachycardia Respiratory/Chest: decreased breath sounds Abdomen: distended Gelacio Mata MD Aug 19, 2020 10:26
--- NOTE | 2020-08-19 11:29 | Consultation ---
History of Present Illness General Date patient seen: Aug 19, 2020 Chief Complaint: Abnormal Labs Present Illness HPI 75-year-old Nepali male with history of dementia, BPH, Schizophrenia, HTN, chronic back pain secondary to trauma, recent [place] [facility] recurrent fall and inability to care for himself, he was discharged to a care home recently,. Patient is transferred to [facility] b/o abnormal labs including hypernatremia and Acute renal failure. Allergies: Coded Allergies: No Known Allergies (Unverified , 07/22/20) Medication History Scheduled Amlodipine Besylate* (Amlodipine Besylate*), 5 MG ORAL DAILY, (Reported) Chlorhexidine Gluconate (Peridex), 15 ML ORAL DAILY AND EVENING, (Reported) Docusate Sodium* (Docusate Sodium*), 100 MG ORAL ONCE DAILY, (Reported) Mirtazapine* (Mirtazapine*), 15 MG ORAL BEDTIME Multivitamins* (Multivitamins*), 1 TAB ORAL DAILY, (Reported) Pantoprazole* (Pantoprazole*), 40 MG ORAL ACBREAKFAST, (Reported) Pantoprazole* (Pantoprazole*), 40 MG ORAL DAILY, (Reported) Risperidone* (Risperdal*), 2 MG ORAL DAILY, (Reported) Tamsulosin HCl (Flomax), 0.4 MG ORAL DAILY, (Reported) Tamsulosin HCl (Flomax), 0.4 MG ORAL Q12HR Scheduled PRN Acetaminophen* (Acetaminophen 325MG Tablet*), 650 MG ORAL Q4H PRN for PAIN/FEVER, (Reported) Haloperidol Lactate (Haloperidol Lactate), 5 MG IM Q6H PRN Zolpidem Tartrate* (Zolpidem Tartrate*), 5 MG ORAL BEDTIME PRN for INSOMINA, (Reported) Patient History Healthcare decision maker Resuscitation status Advanced Directive on File Past Medical/Surgical History Past Medical/Surgical History: (1) Schizoaffective disorder (2) History of benign prostatic hyperplasia (3) Failure to thrive in adult (4) HTN (hypertension) (5) Impaired mobility and ADLs (6) Compression fracture of L3 vertebra (7) Intractable pain Review of Systems All Other Systems: negative except mentioned in HPI Physical Exam General Appearance: WD/WN, no apparent distress Lines, tubes and drains: peripheral HEENT: normocephalic Neck: non-tender, normal alignment Respiratory/Chest: chest wall non-tender, lungs clear Breasts: no masses Cardiovascular/Chest: normal peripheral pulses, normal rate Abdomen: normal bowel sounds Genitourinary/Rectal: normal genital exam Extremities: normal range of motion Last 24 Hour Vital Signs Date Time Temp Pulse Resp B/P (MAP) Pulse Ox O2 Delivery O2 Flow Rate FiO2 08/19/20 09:47 60 131/56 08/19/20 09:00 Room Air 08/19/20 08:00 97.6 65 18 137/87 (104) 97 08/19/20 04:00 97.7 81 16 128/77 (94) 95 08/18/20 23:57 98.1 76 16 141/69 (93) 94 08/18/20 21:00 Nasal Cannula 2.0 08/18/20 20:00 97.9 71 16 143/71 (95) 94 08/18/20 16:20 97.3 80 16 149/80 (103) 94 08/18/20 16:10 98.7 76 20 134/66 98 Room Air 08/18/20 15:00 98.5 80 15 122/80 100 Room Air 08/18/20 13:00 97.9 77 16 111/76 99 Room Air 08/18/20 12:39 97.9 76 18 120/70 (87) 96 Room Air Intake and Output 08/18/20 08/19/20 19:00 07:00 Intake Total 1000 ml Balance 1000 ml Intake IV Total 1000 ml # Voids 1 # Bowel Movements 1 Laboratory Tests Test 08/18/20 13:00 08/18/20 14:15 08/19/20 05:45 08/19/20 08:50 White Blood Count 4.4 K/UL (4.8-10.8) L 4.1 K/UL (4.8-10.8) L Red Blood Count 5.50 M/UL (4.70-6.10) 4.83 M/UL (4.70-6.10) Hemoglobin 17.7 G/DL (14.2-18.0) 15.7 G/DL (14.2-18.0) Hematocrit 56.7 % (42.0-52.0) H 48.2 % (42.0-52.0) Mean Corpuscular Volume 103 FL (80-99) H 100 FL (80-99) H Mean Corpuscular Hemoglobin 32.1 PG (27.0-31.0) H 32.5 PG (27.0-31.0) H Mean Corpuscular Hemoglobin Concent 31.2 G/DL (32.0-36.0) L 32.6 G/DL (32.0-36.0) Red Cell Distribution Width 13.2 % (11.6-14.8) 13.1 % (11.6-14.8) Platelet Count 110 K/UL (150-450) L 108 K/UL (150-450) L Mean Platelet Volume 9.4 FL (6.5-10.1) 10.1 FL (6.5-10.1) Neutrophils (%) (Auto) % (45.0-75.0) % (45.0-75.0) Lymphocytes (%) (Auto) % (20.0-45.0) % (20.0-45.0) Monocytes (%) (Auto) % (1.0-10.0) % (1.0-10.0) Eosinophils (%) (Auto) % (0.0-3.0) % (0.0-3.0) Basophils (%) (Auto) % (0.0-2.0) % (0.0-2.0) Differential Total Cells Counted 100 100 Neutrophils % (Manual) 50 % (45-75) 37 % (45-75) L Lymphocytes % (Manual) 30 % (20-45) 26 % (20-45) Monocytes % (Manual) 16 % (1-10) H 31 % (1-10) H Eosinophils % (Manual) 3 % (0-3) 3 % (0-3) Basophils % (Manual) 1 % (0-2) 3 % (0-2) H Band Neutrophils 0 % (0-8) 0 % (0-8) Platelet Estimate Decreased L Decreased L Platelet Morphology Normal Normal Red Blood Cell Morphology Normal Sodium Level 158 MMOL/L (136-145) H 159 MMOL/L (136-145) H Potassium Level 4.0 MMOL/L (3.5-5.1) 3.5 MMOL/L (3.5-5.1) Chloride Level 120 MMOL/L (98-107) H 124 MMOL/L (98-107) H Carbon Dioxide Level 28 MMOL/L (21-32) 25 MMOL/L (21-32) Anion Gap 10 mmol/L (5-15) 10 mmol/L (5-15) Blood Urea Nitrogen 51 mg/dL (7-18) H 46 mg/dL (7-18) H Creatinine 2.3 MG/DL (0.55-1.30) H 2.0 MG/DL (0.55-1.30) H Estimat Glomerular Filtration Rate 27.9 mL/min (>60) 32.8 mL/min (>60) Glucose Level 106 MG/DL (74-106) 118 MG/DL (74-106) H Osmolality 355 mOsm/kg (297-317) H Lactic Acid Level 1.30 mmol/L (0.4-2.0) Uric Acid 13.8 MG/DL (2.6-7.2) H 12.7 MG/DL (2.6-7.2) H Calcium Level 9.2 MG/DL (8.5-10.1) 8.5 MG/DL (8.5-10.1) Phosphorus Level 3.4 MG/DL (2.5-4.9) 3.4 MG/DL (2.5-4.9) Magnesium Level 3.1 MG/DL (1.8-2.4) H 2.9 MG/DL (1.8-2.4) H Total Bilirubin 1.1 MG/DL (0.2-1.0) H 1.3 MG/DL (0.2-1.0) H Direct Bilirubin 0.7 MG/DL (0.0-0.3) H 0.6 MG/DL (0.0-0.3) H Aspartate Amino Transf (AST/SGOT) 78 U/L (15-37) H 64 U/L (15-37) H Alanine Aminotransferase (ALT/SGPT) 171 U/L (12-78) H 136 U/L (12-78) H Alkaline Phosphatase 145 U/L (46-116) H 120 U/L (46-116) H Total Creatine Kinase 62 U/L (26-308) Creatine Kinase MB 1.6 NG/ML (0.0-3.6) Creatine Kinase MB Relative Index 2.9 Troponin I 0.013 ng/mL (0.000-0.056) Total Protein 8.4 G/DL (6.4-8.2) H 7.2 G/DL (6.4-8.2) Albumin 3.6 G/DL (3.4-5.0) 3.2 G/DL (3.4-5.0) L Globulin 4.8 g/dL 4.0 g/dL Albumin/Globulin Ratio 0.8 (1.0-2.7) L 0.8 (1.0-2.7) L Free Thyroxine 1.36 NG/DL (0.76-1.46) Free Triiodothyronine 2.6 pg/mL (2.3-4.2) Cortisol Pending Urine Color Yellow Urine Appearance Slightly cloudy Urine pH 5 (4.5-8.0) Urine Specific [place] 1.020 (1.005-1.035) Urine Protein 2+ (NEGATIVE) H Urine Glucose (UA) Negative (NEGATIVE) Urine Ketones Negative (NEGATIVE) Urine Blood 3+ (NEGATIVE) H Urine Nitrite Negative (NEGATIVE) Urine Bilirubin Negative (NEGATIVE) Urine Urobilinogen 4 MG/DL (0.0-1.0) H Urine Leukocyte Esterase 1+ (NEGATIVE) H Urine RBC 10-15 /HPF (0 - 0) H Urine WBC 0-2 /HPF (0 - 0) Urine Squamous Epithelial Cells Occasional /LPF Urine Uric Acid Crystals Moderate /LPF (NONE) H Urine Bacteria Few /HPF (NONE) Urine Eosinophils None seen (NONE SEEN) Urine Osmolality 746 mOsm/kg (429-449) H Urine Random Sodium < 20 mmol/L (20-110) L Urine Random Chloride 53 mmol/L (55-125) L Urine Potassium Timed 85 mmol/L (12-62) H Hemoglobin A1c 5.7 % (4.3-6.0) C-Reactive Protein, Quantitative 2.5 mg/dL (0.00-0.90) H Pro-B-Type Natriuretic Peptide 93 pg/mL (0-125) Triglycerides Level 138 MG/DL (30-150) Cholesterol Level 147 MG/DL (< 200) LDL Cholesterol 96 mg/dL (<100) HDL Cholesterol 21 MG/DL (40-60) L Cholesterol/HDL Ratio 7.0 (3.3-4.4) H Thyroid Stimulating Hormone (TSH) 2.639 uiU/mL (0.358-3.740) Macrocytosis 1+ Microbiology Date/Time Source Procedure Growth Status 08/18/20 14:30 Rectum Received 08/18/20 13:00 Nasopharynx SARS-CoV-2 RdRp Gene Assay - Final Complete Height (Feet): 6 Height (Inches): 0.00 Weight (Pounds): 180 Medications Current Medications Medications (Trade) Dose Ordered Sig/Fabrizio Route PRN Reason Start Time Stop Time Status Last Admin Dose Admin Acetaminophen (Tylenol) 650 mg Q4H PRN ORAL fever 08/18/20 15:00 09/17/20 14:59 Allopurinol (allopurinoL) 300 mg DAILY ORAL 08/19/20 12:00 09/18/20 11:59 Amlodipine Besylate (Norvasc) 5 mg DAILY ORAL 08/19/20 09:00 09/18/20 08:59 08/19/20 09:47 Barium Sulfate (Varibar Honey) 250 ml NOW PRN MC RAD 08/18/20 19:15 08/21/20 19:14 Barium Sulfate (Varibar [place]) 240 ml NOW PRN MC RAD 08/18/20 19:15 08/21/20 19:14 Barium Sulfate (Varibar Pudding) 230 ml NOW PRN MC RAD 08/18/20 19:15 08/21/20 19:14 Barium Sulfate (Varibar Thin Liquid powder) 148 gm NOW PRN MC RAD 08/18/20 19:15 08/21/20 19:14 Clonidine HCl (Catapres Tab) 0.1 mg Q4H PRN ORAL For BP above 160 systolic 08/18/20 15:00 11/16/20 14:59 Dextrose 1,000 ml @ 150 mls/hr Q6H40M IV 08/18/20 17:15 09/17/20 17:14 08/19/20 03:29 Dextrose (Dextrose 50%) 25 ml Q30M PRN IV Hypoglycemia 08/18/20 15:00 11/16/20 14:59 Dextrose (Dextrose 50%) 50 ml Q30M PRN IV Hypoglycemia 08/18/20 15:00 11/16/20 14:59 Haloperidol Lactate (Haldol) 5 mg Q6H PRN IM agitation 08/18/20 15:00 10/02/20 14:59 08/18/20 16:49 Heparin Sodium (Porcine) (Heparin 5000 units/ml) 5,000 units EVERY 12 HOURS SUBQ 08/18/20 21:00 10/02/20 20:59 Ondansetron HCl (Zofran) 4 mg Q6H PRN IVP Nausea & Vomiting 08/18/20 15:00 09/17/20 14:59 Pantoprazole (Protonix) 40 mg BID ORAL 08/18/20 18:00 09/18/20 06:29 08/19/20 09:46 Polyethylene Glycol (Miralax) 17 gm HSPRN PRN ORAL Constipation 08/18/20 15:00 09/17/20 14:59 Risperidone (RisperDAL) 2 mg DAILY ORAL 08/19/20 09:00 10/03/20 08:59 08/19/20 09:46 Tamsulosin HCl (Flomax) 0.4 mg BID ORAL 08/18/20 18:00 09/18/20 08:59 08/19/20 09:46 Zolpidem Tartrate (Ambien) 5 mg HSPRN PRN ORAL Insomnia 08/18/20 15:00 08/25/20 14:59 Assessment/Plan Problem List: (1) Hypernatremia ICD Codes: E87.0 - Hyperosmolality and hypernatremia SNOMED: 752908210 (2) Renal failure (ARF), acute on chronic ICD Codes: N17.9 - Acute kidney failure, unspecified; N18.9 - Chronic kidney disease, unspecified SNOMED: 281202767 (3) HTN (hypertension) ICD Codes: I10 - Essential (primary) hypertension SNOMED: 79889973 (4) Failure to thrive in adult ICD Codes: R62.7 - Adult failure to thrive SNOMED: 125743199 (5) BPH (benign prostatic hyperplasia) ICD Codes: N40.0 - Benign 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 SNOMED: 700428045 (6) Schizoaffective disorder ICD Codes: F25.9 - Schizoaffective disorder, unspecified SNOMED: 22660585 Assessment/Plan: IV fluids renal studies, urine electrolytes symptomatic treatment renal evaluation dvt prophylaxis. Jaclyn Byrne MD Aug 19, 2020 11:29
[2020-08-19 12:00] VITALS: BP 125/75
[2020-08-19] MEDS: Haloperidol 5mg/ml Inj IM PRN ×2 (12:32→20:25)
--- NOTE | 2020-08-19 14:09 | Internal Med Progress Note ---
Subjective Physician Name Andrés Rothman Attending Physician Andrés Rothman MD Current Medications Medications (Trade) Dose Ordered Sig/Fabrizio Route PRN Reason Start Time Stop Time Status Last Admin Dose Admin Acetaminophen (Tylenol) 650 mg Q4H PRN ORAL fever 08/18/20 15:00 09/17/20 14:59 Allopurinol (allopurinoL) 300 mg DAILY ORAL 08/19/20 12:00 09/18/20 11:59 08/19/20 12:24 Amlodipine Besylate (Norvasc) 5 mg DAILY ORAL 08/19/20 09:00 09/18/20 08:59 08/19/20 09:47 Barium Sulfate (Varibar Honey) 250 ml NOW PRN MC RAD 08/18/20 19:15 08/21/20 19:14 Barium Sulfate (Varibar Yonah) 240 ml NOW PRN MC RAD 08/18/20 19:15 08/21/20 19:14 Barium Sulfate (Varibar Pudding) 230 ml NOW PRN RAD 08/18/20 19:15 08/21/20 19:14 Barium Sulfate (Varibar Thin Liquid powder) 148 gm NOW PRN MC RAD 08/18/20 19:15 08/21/20 19:14 Clonidine HCl (Catapres Tab) 0.1 mg Q4H PRN ORAL For BP above 160 systolic 08/18/20 15:00 11/16/20 14:59 Dextrose 1,000 ml @ 150 mls/hr Q6H40M IV 08/18/20 17:15 09/17/20 17:14 08/19/20 12:23 Dextrose (Dextrose 50%) 25 ml Q30M PRN IV Hypoglycemia 08/18/20 15:00 11/16/20 14:59 Dextrose (Dextrose 50%) 50 ml Q30M PRN IV Hypoglycemia 08/18/20 15:00 11/16/20 14:59 Haloperidol Lactate (Haldol) 5 mg Q6H PRN IM agitation 08/18/20 15:00 10/02/20 14:59 08/19/20 12:32 Heparin Sodium (Porcine) (Heparin 5000 units/ml) 5,000 units EVERY 12 HOURS SUBQ 08/18/20 21:00 10/02/20 20:59 Ondansetron HCl (Zofran) 4 mg Q6H PRN IVP Nausea & Vomiting 08/18/20 15:00 09/17/20 14:59 Pantoprazole (Protonix) 40 mg BID ORAL 08/18/20 18:00 09/18/20 06:29 08/19/20 09:46 Polyethylene Glycol (Miralax) 17 gm HSPRN PRN ORAL Constipation 08/18/20 15:00 09/17/20 14:59 Risperidone (RisperDAL) 2 mg DAILY ORAL 08/19/20 09:00 10/03/20 08:59 08/19/20 09:46 Tamsulosin HCl (Flomax) 0.4 mg BID ORAL 08/18/20 18:00 09/18/20 08:59 08/19/20 09:46 Zolpidem Tartrate (Ambien) 5 mg HSPRN PRN ORAL Insomnia 08/18/20 15:00 08/25/20 14:59 Allergies: Coded Allergies: No Known Allergies (Unverified , 07/22/20) Subjective awake, responsive, confused, unable to follow commands, WBC 20.6, renal function improving slowly, liver function improving slowly. Objective Last Vital Signs Date Time Temp Pulse Resp B/P (MAP) Pulse Ox O2 Delivery O2 Flow Rate FiO2 08/19/20 12:00 97.4 70 20 125/75 (92) 97 08/19/20 09:00 Room Air 08/18/20 21:00 2.0 Laboratory Tests Test 08/18/20 14:15 08/19/20 05:45 08/19/20 08:50 Urine Color Yellow Urine Appearance Slightly cloudy Urine pH 5 (4.5-8.0) Urine Specific [place] 1.020 (1.005-1.035) Urine Protein 2+ (NEGATIVE) H Urine Glucose (UA) Negative (NEGATIVE) Urine Ketones Negative (NEGATIVE) Urine Blood 3+ (NEGATIVE) H Urine Nitrite Negative (NEGATIVE) Urine Bilirubin Negative (NEGATIVE) Urine Urobilinogen 4 MG/DL (0.0-1.0) H Urine Leukocyte Esterase 1+ (NEGATIVE) H Urine RBC 10-15 /HPF (0 - 0) H Urine WBC 0-2 /HPF (0 - 0) Urine Squamous Epithelial Cells Occasional /LPF Urine Uric Acid Crystals Moderate /LPF (NONE) H Urine Bacteria Few /HPF (NONE) Urine Eosinophils None seen (NONE SEEN) Urine Osmolality 746 mOsm/kg (429-449) H Urine Random Sodium < 20 mmol/L (20-110) L Urine Random Chloride 53 mmol/L (55-125) L Urine Potassium Timed 85 mmol/L (12-62) H Sodium Level 159 MMOL/L (136-145) H Potassium Level 3.5 MMOL/L (3.5-5.1) Chloride Level 124 MMOL/L (98-107) H Carbon Dioxide Level 25 MMOL/L (21-32) Anion Gap 10 mmol/L (5-15) Blood Urea Nitrogen 46 mg/dL (7-18) H Creatinine 2.0 MG/DL (0.55-1.30) H Estimat Glomerular Filtration Rate 32.8 mL/min (>60) Glucose Level 118 MG/DL (74-106) H Hemoglobin A1c 5.7 % (4.3-6.0) Uric Acid 12.7 MG/DL (2.6-7.2) H Calcium Level 8.5 MG/DL (8.5-10.1) Phosphorus Level 3.4 MG/DL (2.5-4.9) Magnesium Level 2.9 MG/DL (1.8-2.4) H Total Bilirubin 1.3 MG/DL (0.2-1.0) H Direct Bilirubin 0.6 MG/DL (0.0-0.3) H Aspartate Amino Transf (AST/SGOT) 64 U/L (15-37) H Alanine Aminotransferase (ALT/SGPT) 136 U/L (12-78) H Alkaline Phosphatase 120 U/L (46-116) H C-Reactive Protein, Quantitative 2.5 mg/dL (0.00-0.90) H Pro-B-Type Natriuretic Peptide 93 pg/mL (0-125) Total Protein 7.2 G/DL (6.4-8.2) Albumin 3.2 G/DL (3.4-5.0) L Globulin 4.0 g/dL Albumin/Globulin Ratio 0.8 (1.0-2.7) L Triglycerides Level 138 MG/DL (30-150) Cholesterol Level 147 MG/DL (< 200) LDL Cholesterol 96 mg/dL (<100) HDL Cholesterol 21 MG/DL (40-60) L Cholesterol/HDL Ratio 7.0 (3.3-4.4) H Thyroid Stimulating Hormone (TSH) 2.639 uiU/mL (0.358-3.740) White Blood Count 4.1 K/UL (4.8-10.8) L Red Blood Count 4.83 M/UL (4.70-6.10) Hemoglobin 15.7 G/DL (14.2-18.0) Hematocrit 48.2 % (42.0-52.0) Mean Corpuscular Volume 100 FL (80-99) H Mean Corpuscular Hemoglobin 32.5 PG (27.0-31.0) H Mean Corpuscular Hemoglobin Concent 32.6 G/DL (32.0-36.0) Red Cell Distribution Width 13.1 % (11.6-14.8) Platelet Count 108 K/UL (150-450) L Mean Platelet Volume 10.1 FL (6.5-10.1) Neutrophils (%) (Auto) % (45.0-75.0) Lymphocytes (%) (Auto) % (20.0-45.0) Monocytes (%) (Auto) % (1.0-10.0) Eosinophils (%) (Auto) % (0.0-3.0) Basophils (%) (Auto) % (0.0-2.0) Differential Total Cells Counted 100 Neutrophils % (Manual) 37 % (45-75) L Lymphocytes % (Manual) 26 % (20-45) Monocytes % (Manual) 31 % (1-10) H Eosinophils % (Manual) 3 % (0-3) Basophils % (Manual) 3 % (0-2) H Band Neutrophils 0 % (0-8) Platelet Estimate Decreased L Platelet Morphology Normal Macrocytosis 1+ Microbiology Date/Time Source Procedure Growth Status 08/18/20 14:30 Rectum Received 08/18/20 13:00 Nasopharynx SARS-CoV-2 RdRp Gene Assay - Final Complete Intake and Output 08/18/20 08/19/20 19:00 07:00 Intake Total 1000 ml Balance 1000 ml Intake IV Total 1000 ml # Voids 1 # Bowel Movements 1 Objective General: No acute distress, awake and responsive, confused. HEENT: NCAT, sclera anicteric, PERRL, EOMI. Neck: Supple, no significant jugular venous distention, Lungs: Good inspiratory effort,clear to auscultation bilaterally, no Wheeze or Rales. Heart: Regular rate and rhythm, normal S1/S2, no murmur. Abdomen: soft, nontender, nondistended. Normoactive bowel sounds, obesity. / Rectal: Refused and deferred. Extremities: No Cyanosis , clubbing or edema. Neuro: A&O x 1, Able to move all extremities Skin: warm, no rashes or lesions Assessment/Plan Assessment/Plan ASSESSMENT: 1. Acute kidney injury on chronic renal insufficiency. 2. Dehydration. 3. Abnormal liver function. 4. History of schizophrenia disorder. 5. BPH. 6. Failure to thrive in adult. 7. Hypertension. 8. Impaired mobility. 9. History of compression fracture of the thoracic as well as lumbar spine due to the old trauma. 10. Depression. 11. Possible urinary tract infection. PLAN: In medical floor. Monitor laboratory. IV hydration. F/U with ultrasound of the abdomen Code status: Full Code. DVT prophylaxis: heparin subcutaneous. Dr. Gelacio Mata from Nephrology Dr. Byrne from Pulmonary Critical Care. failed bedside swallow study. Nothing by mouth. Andrés Rothman MD Aug 19, 2020 14:09
[2020-08-19 16:00] VITALS: BP 129/80
--- NOTE | 2020-08-19 17:15 | History and Physical Report ---
DATE OF ADMISSION: 08/18/2020 CHIEF COMPLAINT: Abnormal liver function and abnormal kidney function. HISTORY OF PRESENT ILLNESS: This is a 75-year-old gentleman with past medical history significant for dementia, chronic kidney disease with prior history of toxic metabolic encephalopathy due to the urinary tract infection and dehydration, history of depression, agitation, hypertension, old thoracic vertebral as well as lumbar vertebral compression fracture, BPH with chronic back pain who presented to the emergency department from nursing facility after he was noted to have abnormal blood work with abnormal liver function and kidney function. The patient was noted to be in acute renal failure. The patient is a poor historian. Most of the history is taken from the ER chart as well as nursing documentation. It was noted at nursing facility, the patient had hypernatremia with worsening renal function and subsequently the patient was transferred to the hospital. Shortly after initial evaluation in the emergency department, the patient was found to have sodium 158, chloride is 120, and BUN 61, creatinine 2.3 and abnormal liver function with AST of 78 and ALT of 171 and subsequently the patient was admitted to the hospital with acute kidney failure on chronic renal insufficiency as well as abnormal liver function. PAST MEDICAL HISTORY/PAST SURGICAL HISTORY: As above history of BPH, dementia, schizophrenia, hypertension, chronic back pain secondary to trauma with old thoracic vertebral as well as lumbar vertebral compression fracture, agitation, depression, urinary tract infection, toxic metabolic encephalopathy, chronic kidney disease. MEDICATIONS: At the nursing facility significant for amlodipine, Peridex, docusate, mirtazapine, multivitamin, pantoprazole, Risperdal, Flomax. ALLERGIES: No known drug allergies. SOCIAL HISTORY: shelter resident. No smoking, alcohol, or drugs at this time. FAMILY HISTORY: Noncontributory. REVIEW OF SYSTEMS: Very limited secondary to patient's status. No fever or chills was reported. No nausea or vomiting. No fall or head trauma. No double vision. PHYSICAL EXAMINATION: VITAL SIGNS: On admission, temperature 97.9, pulse of 76, respirations 18, and blood pressure 120/70. GENERAL: The patient is awake, responsive, however, is lethargic and confused. HEAD AND NECK: Pupils are equal and reactive to light. Extraocular movements intact. Neck was supple. No JVD. LUNGS: Good air entry. No wheezing or rales. Decreased air entry in the bases. HEART: S1 and S2. Regular rhythm. No murmur or gallop. ABDOMEN: Soft, nondistended, nontender. No rebound tenderness. No fluid shift. Mildly obese. EXTREMITIES: No cyanosis, clubbing, or edema. NEUROLOGIC: Cranial nerves II through XII grossly intact. The patient's moving all the extremities. Gait was not assessed due to the patient's status. The patient is confused and disoriented. LABORATORY AND DIAGNOSTIC DATA: Laboratory on admission from the emergency department, sodium 158, potassium 4.0, chloride 120, bicarb 28, BUN 51, creatinine 2.3, GFR is 27, glucose is 106. Lactic acid is 1.3. Calcium is 9.2. Total bilirubin of 1.1, direct bilirubin of 0.7, AST of 78, ALT of 171, alkaline phosphatase was 145. Troponin 0.013. Total protein is 8.4, albumin is 3.6. UA is +2 protein, +3 blood, negative ketones, +1 leukocytes, 10 to 15 rbc's, moderate uric acid crystals. Chest x-ray mild streak opacity noted in the left base, favor for brewery representative subsegmental atelectasis or scarring, possible infiltrate is felt less likely but not excluded. ASSESSMENT: 1. Acute kidney injury on chronic renal insufficiency. 2. Dehydration. 3. Abnormal liver function. 4. History of schizophrenia disorder. 5. BPH. 6. Failure to thrive in adult. 7. Hypertension. 8. Impaired mobility. 9. History of compression fracture of the thoracic as well as lumbar spine due to the old trauma. 10. Depression. 11. Possible urinary tract infection. PLAN: Admit the patient to medical floor. We will follow up with the laboratory. Start the patient IV hydration. Consider to get ultrasound of the abdomen in order to assess the liver function and we will resume custodial medication. Code status, Full Code. DVT prophylaxis is heparin subcutaneous. Discussed with Dr. Gelacio Mata from Nephrology and Dr. Byrne from Pulmonary Critical Care. Andrés Rothman M.D. DR: Halie JOB#: [id number] CC:
--- NOTE | 2020-08-19 19:07 | Diagnostic Imaging Report ---
ADDENDUM - Added by Cj Guthrie M.D. on 08/20/2020 6:47 PM (-08:00) TECHNIQUE: Real-time ultrasound of the complete upper abdomen with image documentation. EXAM: US Abdomen Limited, Right Upper Quadrant CLINICAL HISTORY: ABN LABS TECHNIQUE: Real-time ultrasound of the right upper quadrant with image documentation. COMPARISON: No relevant prior studies available. FINDINGS: Liver: Increased echogenicity of the liver. No intrahepatic bile duct dilation. Gallbladder: Sludge in the distended gallbladder. No gallbladder wall thickening. No definite stones. Common bile duct: Common bile duct is normal. No stones. No dilation. Pancreas: Limited visualization of the pancreas due to body habitus. Right kidney: Unremarkable. No stones. No solid mass. No hydronephrosis. Spleen: Splenomegaly measuring 13.7 cm. Aorta: Proximal to distal aorta are not well-seen due to overlying bowel gas. Other findings: Left renal cyst without hydronephrosis or shadowing. No other abnormalities. IMPRESSION: 1. Sludge within the distended gallbladder but no acute cholecystitis. 2. Left renal cyst. 3. Hepatic steatosis. 4. Nonspecific splenomegaly.
[2020-08-19 20:00] VITALS: BP 130/82
[2020-08-20] VITALS: BP 132/86
[2020-08-20 06:48] LABS: HEMATOCRIT 46.9 % (42.0-52.0); HEMOGLOBIN 15.1 G/DL (14.2-18.0); MEAN CORPUSCULAR VOLUME 101 FL (80-99); PLATELET COUNT 90 K/UL (150-450); RED BLOOD COUNT 4.63 M/UL (4.70-6.10); RED CELL DISTRIBUTION WIDTH 12.9 % (11.6-14.8); WHITE BLOOD COUNT 3.8 K/UL (4.8-10.8)
[2020-08-20 07:35] LABS: ALBUMIN/GLOBULIN RATIO 0.8 (1.0-2.7); BILIRUBIN,TOTAL 1.8 MG/DL (0.2-1.0); CALCIUM 7.8 MG/DL (8.5-10.1); CREATININE 1.9 MG/DL (0.55-1.30); PHOSPHORUS 2.8 MG/DL (2.5-4.9)
[2020-08-20 07:38] LABS: BILIRUBIN,DIRECT 1.1 MG/DL (0.0-0.3)
[2020-08-20 08:00] VITALS: BP 128/81
[2020-08-20] MEDS: Haloperidol 5mg/ml Inj IM PRN (08:47)
[2020-08-20] MEDS: Tamsulosin 0.4mg cap ORAL SCH ×2 (08:56→18:00)
[2020-08-20] MEDS: Heparin 5000 units/ml inj SUBQ SCH (09:00)
--- NOTE | 2020-08-20 10:36 | Diagnostic Imaging Report ---
EXAM: MRI MRI Brain no Contrast COMPARISON: CT head 07/22/2020 HISTORY: Altered mental status. TECHNIQUE: MR scan of the brain includes sagittal T1, axial T1, T2, FLAIR, diffusion-weighted and gradient sequences. FINDINGS: There is diffuse age-related volume loss. Moderate white matter microangiopathic changes noted. There are several foci of restricted diffusion noted in the right occipital lobe, posterior medial right temporal lobe as well as a few small foci in the posterior lateral margin of the right thalamus. There is also a single punctate focus of restricted diffusion noted within the left occipital lobe. The appearance suggests multiple small microembolic type infarcts. There is no hemorrhage, mass effect or shift. Brainstem and posterior fossa appear unremarkable. The sella and parasellar regions are normal. Normal flow voids identified in the carotid siphons. Sinuses, mastoid air cells and bony calvarium are intact. IMPRESSION: MULTIPLE SMALL FOCI OF RESTRICTED DIFFUSION IN THE POSTERIOR RIGHT TEMPORAL, RIGHT OCCIPITAL LOBES AND RIGHT THALAMUS. ALSO A SMALL PUNCTATE FOCUS OF RESTRICTED DIFFUSION IN THE LEFT OCCIPITAL LOBE. FINDINGS SUGGEST MULTIPLE SMALL MICROEMBOLIC INFARCTS. NO HEMORRHAGE, MASS EFFECT OR SHIFT. FINDINGS CALLED TO PATIENT'S NURSE AND 3 E. 08/20/2020 AT 10:20 AM
[2020-08-20 12:00] VITALS: BP 130/77
--- NOTE | 2020-08-20 13:06 | Internal Med Progress Note ---
Subjective Physician Name Andrés Rothman Attending Physician Andrés Rothman MD Current Medications Medications (Trade) Dose Ordered Sig/Fabrizio Route PRN Reason Start Time Stop Time Status Last Admin Dose Admin Acetaminophen (Tylenol) 650 mg Q4H PRN ORAL fever 08/18/20 15:00 09/17/20 14:59 Allopurinol (allopurinoL) 300 mg DAILY ORAL 08/19/20 12:00 09/18/20 11:59 08/19/20 12:24 Amlodipine Besylate (Norvasc) 5 mg DAILY ORAL 08/19/20 09:00 09/18/20 08:59 08/19/20 09:47 Barium Sulfate (Varibar Honey) 250 ml NOW PRN MC RAD 08/18/20 19:15 08/21/20 19:14 Barium Sulfate (Varibar [place]) 240 ml NOW PRN MC RAD 08/18/20 19:15 08/21/20 19:14 Barium Sulfate (Varibar Pudding) 230 ml NOW PRN MC RAD 08/18/20 19:15 08/21/20 19:14 Barium Sulfate (Varibar Thin Liquid powder) 148 gm NOW PRN MC RAD 08/18/20 19:15 08/21/20 19:14 Clonidine HCl (Catapres TTS-1) 1 patch QWEEK TDERMAL 08/19/20 21:00 11/17/20 20:59 08/19/20 22:22 Clonidine HCl (Catapres Tab) 0.1 mg Q4H PRN ORAL For BP above 160 systolic 08/18/20 15:00 11/16/20 14:59 Dextrose 1,000 ml @ 150 mls/hr Q6H40M IV 08/18/20 17:15 09/17/20 17:14 08/20/20 03:00 Dextrose (Dextrose 50%) 25 ml Q30M PRN IV Hypoglycemia 08/18/20 15:00 11/16/20 14:59 Dextrose (Dextrose 50%) 50 ml Q30M PRN IV Hypoglycemia 08/18/20 15:00 11/16/20 14:59 Haloperidol Lactate (Haldol) 5 mg Q6H PRN IM agitation 08/18/20 15:00 10/02/20 14:59 08/20/20 08:47 Heparin Sodium (Porcine) (Heparin 5000 units/ml) 5,000 units EVERY 12 HOURS SUBQ 08/18/20 21:00 10/02/20 20:59 Ondansetron HCl (Zofran) 4 mg Q6H PRN IVP Nausea & Vomiting 08/18/20 15:00 09/17/20 14:59 Pantoprazole (Protonix) 40 mg BID ORAL 08/18/20 18:00 09/18/20 06:29 08/19/20 09:46 Polyethylene Glycol (Miralax) 17 gm HSPRN PRN ORAL Constipation 08/18/20 15:00 09/17/20 14:59 Tamsulosin HCl (Flomax) 0.4 mg BID ORAL 08/18/20 18:00 09/18/20 08:59 08/19/20 09:46 Zolpidem Tartrate (Ambien) 5 mg HSPRN PRN ORAL Insomnia 08/18/20 15:00 08/25/20 14:59 Allergies: Coded Allergies: No Known Allergies (Unverified , 07/22/20) Subjective awake, responsive, confused, unable to follow commands, WBC: 3.8 Objective Last Vital Signs Date Time Temp Pulse Resp B/P (MAP) Pulse Ox O2 Delivery O2 Flow Rate FiO2 08/20/20 08:00 97.0 62 18 128/81 (97) 96 08/19/20 21:00 Room Air 08/18/20 21:00 2.0 Laboratory Tests Test 08/20/20 05:10 White Blood Count 3.8 K/UL (4.8-10.8) L Red Blood Count 4.63 M/UL (4.70-6.10) L Hemoglobin 15.1 G/DL (14.2-18.0) Hematocrit 46.9 % (42.0-52.0) Mean Corpuscular Volume 101 FL (80-99) H Mean Corpuscular Hemoglobin 32.7 PG (27.0-31.0) H Mean Corpuscular Hemoglobin Concent 32.3 G/DL (32.0-36.0) Red Cell Distribution Width 12.9 % (11.6-14.8) Platelet Count 90 K/UL (150-450) L Mean Platelet Volume 10.3 FL (6.5-10.1) H Neutrophils (%) (Auto) % (45.0-75.0) Lymphocytes (%) (Auto) % (20.0-45.0) Monocytes (%) (Auto) % (1.0-10.0) Eosinophils (%) (Auto) % (0.0-3.0) Basophils (%) (Auto) % (0.0-2.0) Differential Total Cells Counted 100 Neutrophils % (Manual) 47 % (45-75) Lymphocytes % (Manual) 22 % (20-45) Monocytes % (Manual) 26 % (1-10) H Eosinophils % (Manual) 5 % (0-3) H Basophils % (Manual) 0 % (0-2) Band Neutrophils 0 % (0-8) Platelet Estimate Decreased L Platelet Morphology Normal Macrocytosis 1+ Sodium Level 150 MMOL/L (136-145) H Potassium Level 3.0 MMOL/L (3.5-5.1) L Chloride Level 115 MMOL/L (98-107) H Carbon Dioxide Level 27 MMOL/L (21-32) Anion Gap 8 mmol/L (5-15) Blood Urea Nitrogen 32 mg/dL (7-18) H Creatinine 1.9 MG/DL (0.55-1.30) H Estimat Glomerular Filtration Rate 34.8 mL/min (>60) Glucose Level 124 MG/DL (74-106) H Uric Acid 10.5 MG/DL (2.6-7.2) H Calcium Level 7.8 MG/DL (8.5-10.1) L Phosphorus Level 2.8 MG/DL (2.5-4.9) Magnesium Level 2.6 MG/DL (1.8-2.4) H Total Bilirubin 1.8 MG/DL (0.2-1.0) H Direct Bilirubin 1.1 MG/DL (0.0-0.3) H Aspartate Amino Transf (AST/SGOT) 90 U/L (15-37) H Alanine Aminotransferase (ALT/SGPT) 148 U/L (12-78) H Alkaline Phosphatase 113 U/L (46-116) Total Protein 7.0 G/DL (6.4-8.2) Albumin 3.0 G/DL (3.4-5.0) L Globulin 4.0 g/dL Albumin/Globulin Ratio 0.8 (1.0-2.7) L Microbiology Date/Time Source Procedure Growth Status 08/18/20 14:30 Rectum VRE Culture - Final Enterococcus Faecalis - Vre Complete 08/18/20 14:30 Rectum - Final NO CARBAPENEM-RESISTANT ENTEROBACTERI... Complete 08/18/20 14:30 Nasal Nares MRSA Culture - Final Staphylococcus Aureus - Mrsa Complete 08/18/20 13:00 Nasopharynx SARS-CoV-2 RdRp Gene Assay - Final Complete Objective General: No acute distress, awake and responsive, confused. HEENT: NCAT, sclera anicteric, PERRL, EOMI. Neck: Supple, no significant jugular venous distention, Lungs: Good inspiratory effort,clear to auscultation bilaterally, no Wheeze or Rales. Heart: Regular rate and rhythm, normal S1/S2, no murmur. Abdomen: soft, nontender, nondistended. Normoactive bowel sounds, obesity. / Rectal: Refused and deferred. Extremities: No Cyanosis , clubbing or edema. Neuro: A&O x 1, Able to move all extremities Skin: warm, no rashes or lesions Assessment/Plan Assessment/Plan ASSESSMENT: 1. Acute kidney injury on chronic renal insufficiency. 2. Dehydration. 3. Abnormal liver function. 4. History of schizophrenia disorder. 5. BPH. 6. Failure to thrive in adult. 7. Hypertension. 8. Impaired mobility. 9. History of compression fracture of the thoracic as well as lumbar spine due to the old trauma. 10. Depression. 11. Possible urinary tract infection. 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 PLAN: In medical floor. Monitor laboratory. IV hydration. Code status: Full Code. DVT prophylaxis: heparin subcutaneous. Dr. Gelacio Mata from Nephrology Dr. Byrne from Pulmonary Critical Care. failed bedside swallow study. Abdominal US: 1. Sludge within the distended gallbladder but no acute cholecystitis. 2. Left renal cyst. 3. Hepatic steatosis. 4. Nonspecific splenomegaly. MRI Brain: MULTIPLE SMALL FOCI OF RESTRICTED DIFFUSION IN THE POSTERIOR RIGHT TEMPORAL, RIGHT OCCIPITAL LOBES AND RIGHT THALAMUS. ALSO A SMALL PUNCTATE FOCUS OF RESTRICTED DIFFUSION IN THE LEFT OCCIPITAL LOBE. FINDINGS SUGGEST MULTIPLE SMALL MICROEMBOLIC INFARCTS. NO HEMORRHAGE, MASS EFFECT OR SHIFT. Andrés Rothman MD Aug 20, 2020 13:06
--- NOTE | 2020-08-20 13:23 | Pulmonology Progress Note ---
Subjective Constitutional: Reports: no symptoms Allergies: Coded Allergies: No Known Allergies (Unverified , 07/22/20) Objective Last 24 Hour Vital Signs Date Time Temp Pulse Resp B/P (MAP) Pulse Ox O2 Delivery O2 Flow Rate FiO2 08/20/20 08:00 97.0 62 18 128/81 (97) 96 08/20/20 00:00 97.6 68 20 132/86 (101) 96 08/19/20 22:22 130/82 08/19/20 21:00 Room Air 08/19/20 20:00 97.8 84 21 130/82 (98) 95 08/19/20 16:00 97.4 72 20 129/80 (96) 95 General Appearance: no acute distress HEENT: normocephalic, atraumatic Respiratory: chest wall non-tender, normal breath sounds Cardiovascular: normal rate, regularly irregular Skin: no rash Neurologic: car top bolter II-XII grossly normal, abnormal gait Microbiology Date/Time Source Procedure Growth Status 08/18/20 14:30 Rectum VRE Culture - Final Enterococcus Faecalis - Vre Complete 08/18/20 14:30 Rectum - Final NO CARBAPENEM-RESISTANT ENTEROBACTERI... Complete 08/18/20 14:30 Nasal Nares MRSA Culture - Final Staphylococcus Aureus - Mrsa Complete 08/18/20 13:00 Nasopharynx SARS-CoV-2 RdRp Gene Assay - Final Complete Laboratory Tests 08/20/20 05:10: White Blood Count 3.8L, Red Blood Count 4.63L, Hemoglobin 15.1, Hematocrit 46.9, Mean Corpuscular Volume 101H, Mean Corpuscular Hemoglobin 32.7H, Mean Corpuscular Hemoglobin Concent 32.3, Red Cell Distribution Width 12.9, Platelet Count 90L, Mean Platelet Volume 10.3H, Neutrophils (%) (Auto) , Lymphocytes (%) (Auto) , Monocytes (%) (Auto) , Eosinophils (%) (Auto) , Basophils (%) (Auto) , Differential Total Cells Counted 100, Neutrophils % (Manual) 47, Lymphocytes % (Manual) 22, Monocytes % (Manual) 26H, Eosinophils % (Manual) 5H, Basophils % (Manual) 0, Band Neutrophils 0, Platelet Estimate DecreasedL, Platelet Morphology Normal, Macrocytosis 1+, Sodium Level 150H, Potassium Level 3.0L, Chloride Level 115H, Carbon Dioxide Level 27, Anion Gap 8, Blood Urea Nitrogen 32H, Creatinine 1.9H, Estimat Glomerular Filtration Rate 34.8, Glucose Level 124H, Uric Acid 10.5H, Calcium Level 7.8L, Phosphorus Level 2.8, Magnesium Level 2.6H, Total Bilirubin 1.8H, Direct Bilirubin 1.1H, Aspartate Amino Transf (AST/SGOT) 90H, Alanine Aminotransferase (ALT/SGPT) 148H, Alkaline Phosphatase 113, Total Protein 7.0, Albumin 3.0L, Globulin 4.0, Albumin/Globulin Ratio 0.8L Current Medications Medications (Trade) Dose Ordered Sig/Fabrizio Route PRN Reason Start Time Stop Time Status Last Admin Dose Admin Acetaminophen (Tylenol) 650 mg Q4H PRN ORAL fever 08/18/20 15:00 09/17/20 14:59 Allopurinol (allopurinoL) 300 mg DAILY ORAL 08/19/20 12:00 09/18/20 11:59 08/19/20 12:24 Amlodipine Besylate (Norvasc) 5 mg DAILY ORAL 08/19/20 09:00 09/18/20 08:59 08/19/20 09:47 Barium Sulfate (Varibar Honey) 250 ml NOW PRN MC RAD 08/18/20 19:15 08/21/20 19:14 Barium Sulfate (Varibar [place]) 240 ml NOW PRN MC RAD 08/18/20 19:15 08/21/20 19:14 Barium Sulfate (Varibar Pudding) 230 ml NOW PRN MC RAD 08/18/20 19:15 08/21/20 19:14 Barium Sulfate (Varibar Thin Liquid powder) 148 gm NOW PRN MC RAD 08/18/20 19:15 08/21/20 19:14 Clonidine HCl (Catapres TTS-1) 1 patch QWEEK TDERMAL 08/19/20 21:00 11/17/20 20:59 08/19/20 22:22 Clonidine HCl (Catapres Tab) 0.1 mg Q4H PRN ORAL For BP above 160 systolic 08/18/20 15:00 11/16/20 14:59 Dextrose 1,000 ml @ 150 mls/hr Q6H40M IV 08/18/20 17:15 09/17/20 17:14 08/20/20 03:00 Dextrose (Dextrose 50%) 25 ml Q30M PRN IV Hypoglycemia 08/18/20 15:00 11/16/20 14:59 Dextrose (Dextrose 50%) 50 ml Q30M PRN IV Hypoglycemia 08/18/20 15:00 11/16/20 14:59 Haloperidol Lactate (Haldol) 5 mg Q6H PRN IM agitation 08/18/20 15:00 10/02/20 14:59 08/20/20 08:47 Heparin Sodium (Porcine) (Heparin 5000 units/ml) 5,000 units EVERY 12 HOURS SUBQ 08/18/20 21:00 10/02/20 20:59 Ondansetron HCl (Zofran) 4 mg Q6H PRN IVP Nausea & Vomiting 08/18/20 15:00 09/17/20 14:59 Pantoprazole (Protonix) 40 mg BID ORAL 08/18/20 18:00 09/18/20 06:29 08/19/20 09:46 Polyethylene Glycol (Miralax) 17 gm HSPRN PRN ORAL Constipation 08/18/20 15:00 09/17/20 14:59 Tamsulosin HCl (Flomax) 0.4 mg BID ORAL 08/18/20 18:00 09/18/20 08:59 08/19/20 09:46 Zolpidem Tartrate (Ambien) 5 mg HSPRN PRN ORAL Insomnia 08/18/20 15:00 08/25/20 14:59 Assessment/Plan Problems: (1) Hypernatremia (2) Renal failure (ARF), acute on chronic (3) HTN (hypertension) (4) Failure to thrive in adult (5) BPH (benign prostatic hyperplasia) (6) Schizoaffective disorder Assessment/Plan no new complains renal function getting better swallow study done, NPO GI evaluation MRI of brain reviewed., multiple small embolic infarcts Jaclyn Byrne MD Aug 20, 2020 13:23
--- NOTE | 2020-08-20 13:32 | Nephrology Progress Note ---
Assessment/Plan Problem List: (1) ANGI (acute kidney injury) (2) Renal failure (ARF), acute on chronic (3) Dehydration (4) UTI (urinary tract infection) (5) BPH (benign prostatic hyperplasia) (6) Agitation due to dementia Assessment Acute renal failure Dehydration, leading to free water deficit and hypernatremia History of hypertension BPH History of lumbar vertebral compression fracture History of hypertension History of depression agitation Plan August 20: Labs reviewed. Serum sodium declining. Abnormal electrolytes addressed. Continue to hydrate and monitor renal parameters. 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 August 19: Patient periodically agitated and pulls the IV out. On D5W 100 cc an hour. Serum creatinine lowering. Will increase IV fluid to [address] evaluation pending. Labs and medications reviewed. August 18: IV hydration Urine studies and culture Monitor renal parameters Pain medication as needed Psych management as needed Per orders Subjective ROS Limited/Unobtainable: Yes Objective Objective Last 24 Hour Vital Signs Date Time Temp Pulse Resp B/P (MAP) Pulse Ox O2 Delivery O2 Flow Rate FiO2 08/20/20 08:00 97.0 62 18 128/81 (97) 96 08/20/20 00:00 97.6 68 20 132/86 (101) 96 08/19/20 22:22 130/82 08/19/20 21:00 Room Air 08/19/20 20:00 97.8 84 21 130/82 (98) 95 08/19/20 16:00 97.4 72 20 129/80 (96) 95 Current Medications Medications (Trade) Dose Ordered Sig/Fabrizio Route PRN Reason Start Time Stop Time Status Last Admin Dose Admin Acetaminophen (Tylenol) 650 mg Q4H PRN ORAL fever 08/18/20 15:00 09/17/20 14:59 Allopurinol (allopurinoL) 300 mg DAILY ORAL 08/19/20 12:00 09/18/20 11:59 08/19/20 12:24 Amlodipine Besylate (Norvasc) 5 mg DAILY ORAL 08/19/20 09:00 09/18/20 08:59 08/19/20 09:47 Clonidine HCl (Catapres TTS-1) 1 patch QWEEK TDERMAL 08/19/20 21:00 11/17/20 20:59 08/19/20 22:22 Clonidine HCl (Catapres Tab) 0.1 mg Q4H PRN ORAL For BP above 160 systolic 08/18/20 15:00 11/16/20 14:59 Dextrose 1,000 ml @ 150 mls/hr Q6H40M IV 08/18/20 17:15 09/17/20 17:14 08/20/20 14:22 Dextrose (Dextrose 50%) 25 ml Q30M PRN IV Hypoglycemia 08/18/20 15:00 11/16/20 14:59 Dextrose (Dextrose 50%) 50 ml Q30M PRN IV Hypoglycemia 08/18/20 15:00 11/16/20 14:59 Haloperidol Lactate (Haldol) 5 mg Q6H PRN IM agitation 08/18/20 15:00 10/02/20 14:59 08/20/20 08:47 Heparin Sodium (Porcine) (Heparin 5000 units/ml) 5,000 units EVERY 12 HOURS SUBQ 08/18/20 21:00 10/02/20 20:59 Ondansetron HCl (Zofran) 4 mg Q6H PRN IVP Nausea & Vomiting 08/18/20 15:00 09/17/20 14:59 Tamsulosin HCl (Flomax) 0.4 mg BID ORAL 08/18/20 18:00 09/18/20 08:59 08/19/20 09:46 Laboratory Tests 08/20/20 05:10: White Blood Count 3.8L, Red Blood Count 4.63L, Hemoglobin 15.1, Hematocrit 46.9, Mean Corpuscular Volume 101H, Mean Corpuscular Hemoglobin 32.7H, Mean Corpuscular Hemoglobin Concent 32.3, Red Cell Distribution Width 12.9, Platelet Count 90L, Mean Platelet Volume 10.3H, Neutrophils (%) (Auto) , Lymphocytes (%) (Auto) , Monocytes (%) (Auto) , Eosinophils (%) (Auto) , Basophils (%) (Auto) , Differential Total Cells Counted 100, Neutrophils % (Manual) 47, Lymphocytes % (Manual) 22, Monocytes % (Manual) 26H, Eosinophils % (Manual) 5H, Basophils % (Manual) 0, Band Neutrophils 0, Platelet Estimate DecreasedL, Platelet Morphology Normal, Macrocytosis 1+, Sodium Level 150H, Potassium Level 3.0L, Chloride Level 115H, Carbon Dioxide Level 27, Anion Gap 8, Blood Urea Nitrogen 32H, Creatinine 1.9H, Estimat Glomerular Filtration Rate 34.8, Glucose Level 124H, Uric Acid 10.5H, Calcium Level 7.8L, Phosphorus Level 2.8, Magnesium Level 2.6H, Total Bilirubin 1.8H, Direct Bilirubin 1.1H, Aspartate Amino Transf (AST/SGOT) 90H, Alanine Aminotransferase (ALT/SGPT) 148H, Alkaline Phosphatase 113, Total Protein 7.0, Albumin 3.0L, Globulin 4.0, Albumin/Globulin Ratio 0.8L Height (Feet): 6 Height (Inches): 0.00 Weight (Pounds): 180 General Appearance: no apparent distress, lethargic Cardiovascular: normal rate Respiratory/Chest: decreased breath sounds Abdomen: distended Gelacio Mata MD Aug 20, 2020 13:32
[2020-08-20 16:00] VITALS: BP 128/78
--- NOTE | 2020-08-20 16:38 | Cardiology Report ---
APPROVED REPORT EKG Measurement Heart [id number] <Conclusion> Sinus rhythm with sinus arrhythmia with 1st degree AV block ST & T wave abnormality, consider inferolateral ischemia Abnormal ECG
[2020-08-20 20:00] VITALS: BP 132/76
--- NOTE | 2020-08-20 21:19 | Neurology Progress Note ---
Interim History Interim History ROS Limited/Unobtainable: Yes Interim History Pt admitted with worsening AMS Unble to provide any history, pt is bedbound, not verbal. Has hx of dementia, chronic kidney disease with prior history of toxic metabolic encephalopathy due to the urinary tract infection and dehydration, history of depression, agitation, hypertension, old thoracic vertebral as well as lumbar vertebral compression fracture, BPH with chronic back pain who presented to the emergency department from nursing facility after he was noted to have abnormal blood work with abnormal liver function and kidney function. Patient noted on exam to be weaker on the right arm, mri was done as below, showing multiple embolic dwi restricted in both hemispheres, worse on right. Objective Physical Exam Last Vital Signs Date Time Temp Pulse Resp B/P (MAP) Pulse Ox O2 Delivery O2 Flow Rate FiO2 08/20/20 16:00 98.0 64 18 128/78 (95) 97 08/20/20 09:00 Room Air 08/18/20 21:00 2.0 Laboratory Tests Test 08/20/20 05:10 White Blood Count 3.8 K/UL (4.8-10.8) L Red Blood Count 4.63 M/UL (4.70-6.10) L Hemoglobin 15.1 G/DL (14.2-18.0) Hematocrit 46.9 % (42.0-52.0) Mean Corpuscular Volume 101 FL (80-99) H Mean Corpuscular Hemoglobin 32.7 PG (27.0-31.0) H Mean Corpuscular Hemoglobin Concent 32.3 G/DL (32.0-36.0) Red Cell Distribution Width 12.9 % (11.6-14.8) Platelet Count 90 K/UL (150-450) L Mean Platelet Volume 10.3 FL (6.5-10.1) H Neutrophils (%) (Auto) % (45.0-75.0) Lymphocytes (%) (Auto) % (20.0-45.0) Monocytes (%) (Auto) % (1.0-10.0) Eosinophils (%) (Auto) % (0.0-3.0) Basophils (%) (Auto) % (0.0-2.0) Differential Total Cells Counted 100 Neutrophils % (Manual) 47 % (45-75) Lymphocytes % (Manual) 22 % (20-45) Monocytes % (Manual) 26 % (1-10) H Eosinophils % (Manual) 5 % (0-3) H Basophils % (Manual) 0 % (0-2) Band Neutrophils 0 % (0-8) Platelet Estimate Decreased L Platelet Morphology Normal Macrocytosis 1+ Sodium Level 150 MMOL/L (136-145) H Potassium Level 3.0 MMOL/L (3.5-5.1) L Chloride Level 115 MMOL/L (98-107) H Carbon Dioxide Level 27 MMOL/L (21-32) Anion Gap 8 mmol/L (5-15) Blood Urea Nitrogen 32 mg/dL (7-18) H Creatinine 1.9 MG/DL (0.55-1.30) H Estimat Glomerular Filtration Rate 34.8 mL/min (>60) Glucose Level 124 MG/DL (74-106) H Uric Acid 10.5 MG/DL (2.6-7.2) H Calcium Level 7.8 MG/DL (8.5-10.1) L Phosphorus Level 2.8 MG/DL (2.5-4.9) Magnesium Level 2.6 MG/DL (1.8-2.4) H Total Bilirubin 1.8 MG/DL (0.2-1.0) H Direct Bilirubin 1.1 MG/DL (0.0-0.3) H Aspartate Amino Transf (AST/SGOT) 90 U/L (15-37) H Alanine Aminotransferase (ALT/SGPT) 148 U/L (12-78) H Alkaline Phosphatase 113 U/L (46-116) Total Protein 7.0 G/DL (6.4-8.2) Albumin 3.0 G/DL (3.4-5.0) L Globulin 4.0 g/dL Albumin/Globulin Ratio 0.8 (1.0-2.7) L General: well developed Neurologic Exam Objective somnolent, open eyes, non verbal, withdraws to pain Left hemiparesis Impression/Recommendations Diagnostic Impression Acute ischemic stroke bilateral hemispheres, anterior and posterior circulation high concern for embolic Tele cont asa daily statin daily Echo Carotid US Natalio Whitfield MD Aug 20, 2020 21:19
[2020-08-21] VITALS: BP 128/70
[2020-08-21 04:00] VITALS: BP 128/78
[2020-08-21 06:04] LABS: HEMATOCRIT 44.8 % (42.0-52.0); HEMOGLOBIN 14.6 G/DL (14.2-18.0); MEAN CORPUSCULAR VOLUME 100 FL (80-99); PLATELET COUNT 79 K/UL (150-450); RED CELL DISTRIBUTION WIDTH 12.4 % (11.6-14.8); WHITE BLOOD COUNT 4.7 K/UL (4.8-10.8)
[2020-08-21 06:29] LABS: ALBUMIN 2.8 G/DL (3.4-5.0); ALBUMIN/GLOBULIN RATIO 0.7 (1.0-2.7); BILIRUBIN,TOTAL 2.4 MG/DL (0.2-1.0); CALCIUM 7.8 MG/DL (8.5-10.1); CREATININE 1.6 MG/DL (0.55-1.30); PHOSPHORUS 2.6 MG/DL (2.5-4.9); POTASSIUM 3.1 MMOL/L (3.5-5.1)
[2020-08-21 06:39] LABS: BILIRUBIN,DIRECT 1.6 MG/DL (0.0-0.3)
[2020-08-21 08:00] VITALS: BP 127/66
--- NOTE | 2020-08-21 08:39 | Diagnostic Imaging Report ---
EXAM: US Duplex Bilateral Extracranial Arteries CLINICAL HISTORY: SYNCOPE TECHNIQUE: Real-time duplex ultrasound scan of the extracranial arteries integrating B-mode two-dimensional vascular structure, Doppler spectral analysis and color flow Doppler imaging. COMPARISON: No relevant prior studies available. FINDINGS: Right common carotid artery: No occlusion or significant stenosis on color flow and spectral Doppler imaging. Right internal carotid artery: No occlusion or significant stenosis on color flow and spectral Doppler imaging. Right external carotid artery: No occlusion or significant stenosis on color flow and spectral Doppler imaging. Right vertebral artery: Antegrade flow. Right ICA/CCA ratio: Within normal limits. 1.5. Left common carotid artery: No occlusion or significant stenosis on color flow and spectral Doppler imaging. Left internal carotid artery: No occlusion or significant stenosis on color flow and spectral Doppler imaging. Left external carotid artery: No occlusion or significant stenosis on color flow and spectral Doppler imaging. Left vertebral artery: Antegrade flow. Left ICA/CCA ratio: Within normal limits. 1.1. Lymph nodes: Unremarkable. No lymphadenopathy. CAROTID STENOSIS REFERENCE USING SRU CRITERIA: Mild - <50% stenosis. ICA PSV is less than 125 cm/second and plaque or intimal thickening is visible. Moderate - 50-69% stenosis. ICA PSV is 125 to 230 cm/second and plaque is visible. Severe - 70-94% stenosis. ICA PSV is more than 230 cm/second and visible plaque with lumen narrowing is seen. Near occlusion - 95-99% stenosis. ICA PSV is variable and significant plaque with luminal narrowing is seen. Occluded - 100% stenosis. No flow identified. IMPRESSION: No hemodynamically significant stenosis or occlusion of the carotid arteries. Antegrade flow in the bilateral vertebral arteries.
[2020-08-21] MEDS: Aspirin EC 81mg tab ORAL SCH (09:00)
[2020-08-21] MEDS: Tamsulosin 0.4mg cap ORAL SCH ×2 (09:00→18:00)
--- NOTE | 2020-08-21 10:39 | Pulmonology Progress Note ---
Subjective ROS Limited/Unobtainable: Yes Constitutional: Reports: no symptoms Allergies: Coded Allergies: No Known Allergies (Unverified , 07/22/20) Subjective MRI 08/20- with multiple small microembolic infarcts seen by neuro ECHO with bubble study pending Carotid unremarkable Objective Last 24 Hour Vital Signs Date Time Temp Pulse Resp B/P (MAP) Pulse Ox O2 Delivery O2 Flow Rate FiO2 08/21/20 09:00 62 127/66 08/21/20 08:00 97.7 62 17 127/66 (86) 96 62 08/21/20 04:00 97.8 60 23 128/78 (95) 97 08/21/20 00:00 98.5 66 21 128/70 (89) 97 08/20/20 21:00 Room Air 08/20/20 20:00 98.5 66 21 132/76 (94) 97 08/20/20 16:00 98.0 64 18 128/78 (95) 97 08/20/20 12:00 97.6 68 18 130/77 (94) 97 Intake and Output 08/20/20 08/21/20 19:00 07:00 Intake Total 150 ml 1800 ml Balance 150 ml 1800 ml Intake IV Total 150 ml 1800 ml General Appearance: no acute distress, other - elderly male, not verbally responsive HEENT: normocephalic, atraumatic Respiratory: chest wall non-tender, lungs clear, no respiratory distress Cardiovascular: normal rate Abdomen: soft, non tender, non distended Extremities: no edema, pedal pulses normal Skin: no rash Neurologic: other - left hemiparesis, nonverbal, w/draws to tactile stimuli Microbiology Date/Time Source Procedure Growth Status 08/18/20 14:30 Rectum VRE Culture - Final Enterococcus Faecalis - Vre Complete 08/18/20 14:30 Rectum - Final NO CARBAPENEM-RESISTANT ENTEROBACTERI... Complete 08/18/20 14:30 Nasal Nares MRSA Culture - Final Staphylococcus Aureus - Mrsa Complete 08/18/20 13:00 Nasopharynx SARS-CoV-2 RdRp Gene Assay - Final Complete Laboratory Tests 08/21/20 05:05: White Blood Count 4.7L, Red Blood Count 4.50L, Hemoglobin 14.6, Hematocrit 44.8, Mean Corpuscular Volume 100H, Mean Corpuscular Hemoglobin 32.5H, Mean Corpuscular Hemoglobin Concent 32.7, Red Cell Distribution Width 12.4, Platelet Count 79L, Mean Platelet Volume 11.1H, Neutrophils (%) (Auto) , Lymphocytes (%) (Auto) , Monocytes (%) (Auto) , Eosinophils (%) (Auto) , Basophils (%) (Auto) , Differential Total Cells Counted 100, Neutrophils % (Manual) 54, Lymphocytes % (Manual) 18L, Monocytes % (Manual) 25H, Eosinophils % (Manual) 3, Basophils % (Manual) 0, Band Neutrophils 0, Platelet Estimate DecreasedL, Platelet Morphology Normal, Macrocytosis 1+, Sodium Level 144, Potassium Level 3.1L, Chloride Level 110H, Carbon Dioxide Level 28, Anion Gap 6, Blood Urea Nitrogen 28H, Creatinine 1.6H, Estimat Glomerular Filtration Rate 42.5, Glucose Level 119H, Uric Acid 9.0H, Calcium Level 7.8L, Phosphorus Level 2.6, Magnesium Level 2.4, Total Bilirubin 2.4H, Direct Bilirubin 1.6H, Aspartate Amino Transf (AST/SGOT) 102H, Alanine Aminotransferase (ALT/SGPT) 154H, Alkaline Phosphatase 124H, C-Reactive Protein, Quantitative 3.0H, Total Protein 6.6, Albumin 2.8L, Globulin 3.8, Albumin/Globulin Ratio 0.7L Current Medications Medications (Trade) Dose Ordered Sig/Fabrizio Route PRN Reason Start Time Stop Time Status Last Admin Dose Admin Acetaminophen (Tylenol) 650 mg Q4H PRN ORAL fever 08/18/20 15:00 09/17/20 14:59 Allopurinol (allopurinoL) 300 mg DAILY ORAL 08/19/20 12:00 09/18/20 11:59 08/19/20 12:24 Amlodipine Besylate (Norvasc) 5 mg DAILY ORAL 08/19/20 09:00 09/18/20 08:59 08/19/20 09:47 Aspirin (Ecotrin) 81 mg DAILY ORAL 08/21/20 09:00 10/05/20 08:59 Atorvastatin Calcium (Lipitor) 20 mg BEDTIME ORAL 08/21/20 21:00 11/19/20 20:59 Clonidine HCl (Catapres TTS-1) 1 patch QWEEK TDERMAL 08/19/20 21:00 11/17/20 20:59 08/19/20 22:22 Clonidine HCl (Catapres Tab) 0.1 mg Q4H PRN ORAL For BP above 160 systolic 08/18/20 15:00 11/16/20 14:59 Dextrose 1,000 ml @ 150 mls/hr Q6H40M IV 08/18/20 17:15 09/17/20 17:14 08/21/20 07:05 Dextrose (Dextrose 50%) 25 ml Q30M PRN IV Hypoglycemia 08/18/20 15:00 11/16/20 14:59 Dextrose (Dextrose 50%) 50 ml Q30M PRN IV Hypoglycemia 08/18/20 15:00 11/16/20 14:59 Haloperidol Lactate (Haldol) 5 mg Q6H PRN IM agitation 08/18/20 15:00 10/02/20 14:59 08/20/20 08:47 Ondansetron HCl (Zofran) 4 mg Q6H PRN IVP Nausea & Vomiting 08/18/20 15:00 09/17/20 14:59 Potassium Chloride (K-Dur) 40 meq TWICE A DAY ORAL 08/20/20 18:30 11/18/20 18:29 Tamsulosin HCl (Flomax) 0.4 mg BID ORAL 08/18/20 18:00 09/18/20 08:59 08/19/20 09:46 Assessment/Plan Assessment/Plan ASSESSMENT Multiple small microembolic infarcts ANGI Dehydration Abnormal LFT BPH Schizophrenia HTN Hx of compression fracture PLAN OF CARE MRI brain -> multiply small microembolic infarcts, no hemorrhage mass-effect or shift neuro eval appreciated a/PLT therapy with ASA and statin Echo with bubble study pending Carotid unremarkable cardio eval pending IVF monitor renal parameters , lytes ; correct electrolytes as needed, creatinine trending down avoid nephrotoxic DVT and GI prophylaxis failed BSSE LFT trending up Hepatitis panel abd US-> d hepatic steatosis; no acute cholecystitis ; nonspecific splenomegaly supportive care transfer to tele case discussed and evaluated by supervising physician Aida Howard NP Aug 21, 2020 10:39
--- NOTE | 2020-08-21 10:45 | Nephrology Progress Note ---
Assessment/Plan Problem List: (1) ANGI (acute kidney injury) (2) Renal failure (ARF), acute on chronic (3) Dehydration (4) UTI (urinary tract infection) (5) BPH (benign prostatic hyperplasia) (6) Agitation due to dementia Assessment Acute renal failure Dehydration, leading to free water deficit and hypernatremia History of hypertension BPH History of lumbar vertebral compression fracture History of hypertension History of depression agitation Plan August 21: Labs reviewed. Electrolytes improving. Abnormal electrolytes addressed. Continue per current management. Lipitor and allopurinol held due to abnormal liver function tests August 20: Labs reviewed. Serum sodium declining. Abnormal electrolytes addressed. Continue to hydrate and monitor renal parameters. 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 August 19: Patient periodically agitated and pulls the IV out. On D5W 100 cc an hour. Serum creatinine lowering. Will increase IV fluid to [address] evaluation pending. Labs and medications reviewed. August 18: IV hydration Urine studies and culture Monitor renal parameters Pain medication as needed Psych management as needed Per orders Subjective ROS Limited/Unobtainable: No Constitutional: Reports: malaise Objective Objective Last 24 Hour Vital Signs Date Time Temp Pulse Resp B/P (MAP) Pulse Ox O2 Delivery O2 Flow Rate FiO2 08/21/20 09:00 62 127/66 08/21/20 08:00 97.7 62 17 127/66 (86) 96 62 08/21/20 04:00 97.8 60 23 128/78 (95) 97 08/21/20 00:00 98.5 66 21 128/70 (89) 97 08/20/20 21:00 Room Air 08/20/20 20:00 98.5 66 21 132/76 (94) 97 08/20/20 16:00 98.0 64 18 128/78 (95) 97 08/20/20 12:00 97.6 68 18 130/77 (94) 97 Intake and Output 08/20/20 08/21/20 19:00 07:00 Intake Total 150 ml 1800 ml Balance 150 ml 1800 ml Intake IV Total 150 ml 1800 ml Laboratory Tests 08/21/20 05:05: White Blood Count 4.7L, Red Blood Count 4.50L, Hemoglobin 14.6, Hematocrit 44.8, Mean Corpuscular Volume 100H, Mean Corpuscular Hemoglobin 32.5H, Mean Corpuscular Hemoglobin Concent 32.7, Red Cell Distribution Width 12.4, Platelet Count 79L, Mean Platelet Volume 11.1H, Neutrophils (%) (Auto) , Lymphocytes (%) (Auto) , Monocytes (%) (Auto) , Eosinophils (%) (Auto) , Basophils (%) (Auto) , Differential Total Cells Counted 100, Neutrophils % (Manual) 54, Lymphocytes % (Manual) 18L, Monocytes % (Manual) 25H, Eosinophils % (Manual) 3, Basophils % (Manual) 0, Band Neutrophils 0, Platelet Estimate DecreasedL, Platelet Morphology Normal, Macrocytosis 1+, Sodium Level 144, Potassium Level 3.1L, Chloride Level 110H, Carbon Dioxide Level 28, Anion Gap 6, Blood Urea Nitrogen 28H, Creatinine 1.6H, Estimat Glomerular Filtration Rate 42.5, Glucose Level 119H, Uric Acid 9.0H, Calcium Level 7.8L, Phosphorus Level 2.6, Magnesium Level 2.4, Total Bilirubin 2.4H, Direct Bilirubin 1.6H, Aspartate Amino Transf (AST/SGOT) 102H, Alanine Aminotransferase (ALT/SGPT) 154H, Alkaline Phosphatase 124H, C-Reactive Protein, Quantitative 3.0H, Total Protein 6.6, Albumin 2.8L, Globulin 3.8, Albumin/Globulin Ratio 0.7L Height (Feet): 6 Height (Inches): 0.00 Weight (Pounds): 180 General Appearance: no apparent distress Cardiovascular: normal rate Respiratory/Chest: decreased breath sounds Abdomen: soft Gelacio Mata MD Aug 21, 2020 10:45
[2020-08-21 12:00] VITALS: BP 111/83
[2020-08-21] MEDS: Haloperidol 5mg/ml Inj IM PRN (12:34)
[2020-08-21] MEDS ORDERED: Tubing IV Secondary IV ONE (15:41)
[2020-08-21 16:00] VITALS: BP 101/41
--- NOTE | 2020-08-21 16:15 | Internal Med Progress Note ---
Subjective Date of Service: Aug 21, 2020 Physician Name Shai Zimmer Attending Physician Andrés Rothman MD Current Medications Medications (Trade) Dose Ordered Sig/Fabrizio Route PRN Reason Start Time Stop Time Status Last Admin Dose Admin Acetaminophen (Tylenol) 650 mg Q4H PRN ORAL fever 08/18/20 15:00 09/17/20 14:59 Amlodipine Besylate (Norvasc) 5 mg DAILY ORAL 08/19/20 09:00 09/18/20 08:59 08/19/20 09:47 Aspirin (Ecotrin) 81 mg DAILY ORAL 08/21/20 09:00 10/05/20 08:59 Clonidine HCl (Catapres TTS-1) 1 patch QWEEK TDERMAL 08/19/20 21:00 11/17/20 20:59 08/19/20 22:22 Clonidine HCl (Catapres Tab) 0.1 mg Q4H PRN ORAL For BP above 160 systolic 08/18/20 15:00 11/16/20 14:59 Dextrose 1,000 ml @ 150 mls/hr Q6H40M IV 08/18/20 17:15 09/17/20 17:14 08/21/20 07:05 Dextrose (Dextrose 50%) 25 ml Q30M PRN IV Hypoglycemia 08/18/20 15:00 11/16/20 14:59 Dextrose (Dextrose 50%) 50 ml Q30M PRN IV Hypoglycemia 08/18/20 15:00 11/16/20 14:59 Haloperidol Lactate (Haldol) 5 mg Q6H PRN IM agitation 08/18/20 15:00 10/02/20 14:59 08/21/20 12:34 Ondansetron HCl (Zofran) 4 mg Q6H PRN IVP Nausea & Vomiting 08/18/20 15:00 09/17/20 14:59 Potassium Chloride (K-Dur) 40 meq TWICE A DAY ORAL 08/20/20 18:30 11/18/20 18:29 Tamsulosin HCl (Flomax) 0.4 mg BID ORAL 08/18/20 18:00 09/18/20 08:59 08/19/20 09:46 Allergies: Coded Allergies: No Known Allergies (Unverified , 07/22/20) ROS Limited/Unobtainable: Yes Subjective 75 YO M admitted with acute renal failure. Now multiple microembolic infarcts. Cover for Int danny-DR Rothman Objective Last Vital Signs Date Time Temp Pulse Resp B/P (MAP) Pulse Ox O2 Delivery O2 Flow Rate FiO2 08/21/20 12:00 97.5 77 18 111/83 (92) 97 08/21/20 09:00 Room Air 08/18/20 21:00 2.0 Laboratory Tests Test 08/21/20 05:05 White Blood Count 4.7 K/UL (4.8-10.8) L Red Blood Count 4.50 M/UL (4.70-6.10) L Hemoglobin 14.6 G/DL (14.2-18.0) Hematocrit 44.8 % (42.0-52.0) Mean Corpuscular Volume 100 FL (80-99) H Mean Corpuscular Hemoglobin 32.5 PG (27.0-31.0) H Mean Corpuscular Hemoglobin Concent 32.7 G/DL (32.0-36.0) Red Cell Distribution Width 12.4 % (11.6-14.8) Platelet Count 79 K/UL (150-450) L Mean Platelet Volume 11.1 FL (6.5-10.1) H Neutrophils (%) (Auto) % (45.0-75.0) Lymphocytes (%) (Auto) % (20.0-45.0) Monocytes (%) (Auto) % (1.0-10.0) Eosinophils (%) (Auto) % (0.0-3.0) Basophils (%) (Auto) % (0.0-2.0) Differential Total Cells Counted 100 Neutrophils % (Manual) 54 % (45-75) Lymphocytes % (Manual) 18 % (20-45) L Monocytes % (Manual) 25 % (1-10) H Eosinophils % (Manual) 3 % (0-3) Basophils % (Manual) 0 % (0-2) Band Neutrophils 0 % (0-8) Platelet Estimate Decreased L Platelet Morphology Normal Macrocytosis 1+ Sodium Level 144 MMOL/L (136-145) Potassium Level 3.1 MMOL/L (3.5-5.1) L Chloride Level 110 MMOL/L (98-107) H Carbon Dioxide Level 28 MMOL/L (21-32) Anion Gap 6 mmol/L (5-15) Blood Urea Nitrogen 28 mg/dL (7-18) H Creatinine 1.6 MG/DL (0.55-1.30) H Estimat Glomerular Filtration Rate 42.5 mL/min (>60) Glucose Level 119 MG/DL (74-106) H Uric Acid 9.0 MG/DL (2.6-7.2) H Calcium Level 7.8 MG/DL (8.5-10.1) L Phosphorus Level 2.6 MG/DL (2.5-4.9) Magnesium Level 2.4 MG/DL (1.8-2.4) Total Bilirubin 2.4 MG/DL (0.2-1.0) H Direct Bilirubin 1.6 MG/DL (0.0-0.3) H Aspartate Amino Transf (AST/SGOT) 102 U/L (15-37) H Alanine Aminotransferase (ALT/SGPT) 154 U/L (12-78) H Alkaline Phosphatase 124 U/L (46-116) H C-Reactive Protein, Quantitative 3.0 mg/dL (0.00-0.90) H Total Protein 6.6 G/DL (6.4-8.2) Albumin 2.8 G/DL (3.4-5.0) L Globulin 3.8 g/dL Albumin/Globulin Ratio 0.7 (1.0-2.7) L Intake and Output 08/20/20 08/21/20 19:00 07:00 Intake Total 150 ml 1800 ml Balance 150 ml 1800 ml Intake IV Total 150 ml 1800 ml Objective Objective General: No acute distress, awake and responsive, confused. HEENT: NCAT, sclera anicteric, PERRL, EOMI. Neck: Supple, no significant jugular venous distention, Lungs: Good inspiratory effort,clear to auscultation bilaterally, no Wheeze or Rales. Heart: Regular rate and rhythm, normal S1/S2, no murmur. Abdomen: soft, nontender, nondistended. Normoactive bowel sounds, obesity. / Rectal: Refused and deferred. Extremities: No Cyanosis , clubbing or edema. Neuro: A&O x 1, Able to move all extremities Skin: warm, no rashes or lesions Assessment/Plan Assessment/Plan Assessment/Plan Assessment/Plan Assessment/Plan ASSESSMENT: 1. Acute kidney injury on chronic renal insufficiency. 2. Dehydration. 3. Abnormal liver function. 4. History of schizophrenia disorder. 5. BPH. 6. Failure to thrive in adult. 7. Hypertension. 8. Impaired mobility. 9. History of compression fracture of the thoracic as well as lumbar spine due to the old trauma. 10. Depression. 11. Possible urinary tract infection. 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 13. Multiple microembolic brain infarcts PLAN: Telemetry status Monitor laboratory. IV hydration. Code status: Full Code. DVT prophylaxis: heparin subcutaneous. Dr. Gelacio Mata from Nephrology Dr. Byrne from Pulmonary Critical Care. failed bedside swallow study Neuro=Dr Whitfield Await Bubble Echocardiogram Abdominal US: 1. Sludge within the distended gallbladder but no acute cholecystitis. 2. Left renal cyst. 3. Hepatic steatosis. 4. Nonspecific splenomegaly. MRI Brain: MULTIPLE SMALL FOCI OF RESTRICTED DIFFUSION IN THE POSTERIOR RIGHT TEMPORAL, RIGHT OCCIPITAL LOBES AND RIGHT THALAMUS. ALSO A SMALL PUNCTATE FOCUS OF RESTRICTED DIFFUSION IN THE LEFT OCCIPITAL LOBE. FINDINGS SUGGEST MULTIPLE SMALL MICROEMBOLIC INFARCTS. NO HEMORRHAGE, MASS EFFECT OR SHIFT. Shai Zimmer MD Aug 21, 2020 16:15
[2020-08-21 20:00] VITALS: BP 112/70
[2020-08-21] MEDS ORDERED: Atorvastatin 20mg tab ORAL SCH (21:00)
--- NOTE | 2020-08-21 21:11 | Cardiac Electrophysiology PN ---
Subjective Subjective [id number] Objective Last 24 Hour Vital Signs Date Time Temp Pulse Resp B/P (MAP) Pulse Ox O2 Delivery O2 Flow Rate FiO2 08/21/20 18:00 73 08/21/20 16:00 98.1 54 18 101/41 (61) 95 08/21/20 13:05 66 08/21/20 12:00 97.5 77 18 111/83 (92) 97 08/21/20 09:00 62 127/66 08/21/20 09:00 Room Air 08/21/20 08:00 97.7 62 17 127/66 (86) 96 62 08/21/20 04:00 97.8 60 23 128/78 (95) 97 08/21/20 00:00 98.5 66 21 128/70 (89) 97 Intake and Output 08/20/20 08/21/20 19:00 07:00 Intake Total 150 ml 1800 ml Balance 150 ml 1800 ml Intake IV Total 150 ml 1800 ml Laboratory Tests Test 08/21/20 05:05 White Blood Count 4.7 K/UL (4.8-10.8) L Red Blood Count 4.50 M/UL (4.70-6.10) L Hemoglobin 14.6 G/DL (14.2-18.0) Hematocrit 44.8 % (42.0-52.0) Mean Corpuscular Volume 100 FL (80-99) H Mean Corpuscular Hemoglobin 32.5 PG (27.0-31.0) H Mean Corpuscular Hemoglobin Concent 32.7 G/DL (32.0-36.0) Red Cell Distribution Width 12.4 % (11.6-14.8) Platelet Count 79 K/UL (150-450) L Mean Platelet Volume 11.1 FL (6.5-10.1) H Neutrophils (%) (Auto) % (45.0-75.0) Lymphocytes (%) (Auto) % (20.0-45.0) Monocytes (%) (Auto) % (1.0-10.0) Eosinophils (%) (Auto) % (0.0-3.0) Basophils (%) (Auto) % (0.0-2.0) Differential Total Cells Counted 100 Neutrophils % (Manual) 54 % (45-75) Lymphocytes % (Manual) 18 % (20-45) L Monocytes % (Manual) 25 % (1-10) H Eosinophils % (Manual) 3 % (0-3) Basophils % (Manual) 0 % (0-2) Band Neutrophils 0 % (0-8) Platelet Estimate Decreased L Platelet Morphology Normal Macrocytosis 1+ Sodium Level 144 MMOL/L (136-145) Potassium Level 3.1 MMOL/L (3.5-5.1) L Chloride Level 110 MMOL/L (98-107) H Carbon Dioxide Level 28 MMOL/L (21-32) Anion Gap 6 mmol/L (5-15) Blood Urea Nitrogen 28 mg/dL (7-18) H Creatinine 1.6 MG/DL (0.55-1.30) H Estimat Glomerular Filtration Rate 42.5 mL/min (>60) Glucose Level 119 MG/DL (74-106) H Uric Acid 9.0 MG/DL (2.6-7.2) H Calcium Level 7.8 MG/DL (8.5-10.1) L Phosphorus Level 2.6 MG/DL (2.5-4.9) Magnesium Level 2.4 MG/DL (1.8-2.4) Total Bilirubin 2.4 MG/DL (0.2-1.0) H Direct Bilirubin 1.6 MG/DL (0.0-0.3) H Aspartate Amino Transf (AST/SGOT) 102 U/L (15-37) H Alanine Aminotransferase (ALT/SGPT) 154 U/L (12-78) H Alkaline Phosphatase 124 U/L (46-116) H C-Reactive Protein, Quantitative 3.0 mg/dL (0.00-0.90) H Total Protein 6.6 G/DL (6.4-8.2) Albumin 2.8 G/DL (3.4-5.0) L Globulin 3.8 g/dL Albumin/Globulin Ratio 0.7 (1.0-2.7) L Carlos Eduardo Crespo MD Aug 21, 2020 21:11
--- NOTE | 2020-08-21 22:14 | Consultation ---
DATE OF CONSULTATION: 08/21/2020 CARDIOLOGY CONSULTATION REASON FOR CONSULTATION: Rule out cardioembolic source of stroke in this patient with new stroke in multiple foci. HISTORY OF PRESENT ILLNESS: The patient is a 75-year-old gentleman with history of chronic kidney disease, dementia, history of prior toxic metabolic encephalopathy, urinary tract infection, depression, agitation, hypertension, as well as history of old thoracic vertebral and lumbar vertebral compression fractures, who was brought to the emergency room from nursing facility for abnormal lab work including liver function tests and kidney function abnormality. The patient was found to be in acute renal failure. The patient is a very poor historian and also has hypernatremia. The patient's sodium was 158 with BUN of 61, creatinine 2.3, AST of 78, and ALT of 171. The patient was admitted and underwent CT of the brain that was suggestive of stroke from multiple small micro embolic infarcts. Cardiac electrophysiology consultation was requested to rule out atrial fibrillation as the cause of the stroke. REVIEW OF SYSTEMS: Cannot be obtained. PAST MEDICAL HISTORY: As mentioned above. SOCIAL HISTORY: Lives in a correction. Does not smoke or drink alcohol. PHYSICAL EXAMINATION: VITAL SIGNS: Blood pressure 101/41, pulse 54, respirations 18, and temperature 98.1. HEAD AND NECK: No JVD. LUNGS: Coarse rhonchi. CARDIOVASCULAR: Regular S1 and S2 with no gallop. ABDOMEN: Soft. EXTREMITIES: No pitting edema. LABORATORY AND DIAGNOSTIC DATA: Labs showed white count of 4.7, hemoglobin 14.7, hematocrit 44.8, and platelet count is 79. Sodium is 144, potassium is 3.1, BUN of 28, creatinine 1.6, and glucose of 119. Her MRI of the brain showed multiple small foci of possible microembolic infarct. ASSESSMENT AND PLAN: 1. Multiple small microembolic infarcts. Rule out paroxysmal atrial fibrillation or paradoxical embolus. We will order an echocardiogram with bubble study to make sure the patient does not have a PFO. Neurology evaluation is also in progress with . 2. Acute renal failure. Creatinine is improving with hydration. 3. Agitation and dementia. 4. hypertrophy. 5. History of lumbar vertebral compression fracture. 6. Hypernatremia. Thank you very much Dr. Rothman for allowing me to participate in the care of this patient. Please do not hesitate to contact me for any questions regarding my evaluation. Carlos Eduardo Crespo M.D. DR: SOL JOB#: [id number] CC:
[2020-08-22] VITALS: BP 121/68
[2020-08-22 04:00] VITALS: BP 116/62
[2020-08-22] MEDS: Haloperidol 5mg/ml Inj IM PRN (06:27)
[2020-08-22 07:38] LABS: HEMATOCRIT 40.9 % (42.0-52.0); HEMOGLOBIN 13.7 G/DL (14.2-18.0); MEAN CORPUSCULAR VOLUME 98 FL (80-99); PLATELET COUNT 77 K/UL (150-450); RED BLOOD COUNT 4.18 M/UL (4.70-6.10); RED CELL DISTRIBUTION WIDTH 12.5 % (11.6-14.8); WHITE BLOOD COUNT 5.2 K/UL (4.8-10.8)
[2020-08-22 08:00] VITALS: BP 115/59
[2020-08-22 08:17] LABS: ALBUMIN 2.8 G/DL (3.4-5.0); ALBUMIN/GLOBULIN RATIO 0.8 (1.0-2.7); CALCIUM 7.8 MG/DL (8.5-10.1); CREATININE 1.4 MG/DL (0.55-1.30); POTASSIUM 3.1 MMOL/L (3.5-5.1)
[2020-08-22 08:18] LABS: BILIRUBIN,DIRECT 1.2 MG/DL (0.0-0.3)
[2020-08-22 08:19] LABS: PHOSPHORUS 1.8 MG/DL (2.5-4.9)
--- NOTE | 2020-08-22 09:53 | Pulmonology Progress Note ---
Subjective ROS Limited/Unobtainable: Yes Constitutional: Reports: no symptoms Allergies: Coded Allergies: No Known Allergies (Unverified , 07/22/20) All Systems: reviewed and negative except above Subjective now on tele seen by cardio MRI 08/20- with multiple small microembolic infarcts seen by neuro ECHO with bubble study pending Carotid unremarkable creat trending down, K-3.1 P-1.8 this am Objective Last 24 Hour Vital Signs Date Time Temp Pulse Resp B/P (MAP) Pulse Ox O2 Delivery O2 Flow Rate FiO2 08/22/20 08:00 100.1 71 20 115/59 (77) 99 08/22/20 04:00 61 08/22/20 04:00 97.5 55 20 116/62 (80) 97 08/22/20 00:00 58 08/22/20 00:00 98.1 60 22 121/68 (85) 95 08/21/20 21:00 Room Air 08/21/20 20:00 66 08/21/20 20:00 96.8 62 22 112/70 (84) 96 08/21/20 18:00 73 08/21/20 16:00 98.1 54 18 101/41 (61) 95 08/21/20 13:05 66 08/21/20 12:00 97.5 77 18 111/83 (92) 97 Intake and Output 08/21/20 08/22/20 19:00 07:00 Intake Total 750 ml Output Total 200 ml Balance 550 ml Intake IV Total 750 ml Output Urine Total 200 ml # Voids 2 General Appearance: no acute distress, other - elderly male, not verbally responsive HEENT: normocephalic, atraumatic Respiratory: chest wall non-tender, lungs clear, no respiratory distress Cardiovascular: normal rate - tele with SR 1 st degree AV block Abdomen: soft, non tender, non distended Extremities: no edema, pedal pulses normal Skin: no rash Neurologic: other - left hemiparesis, nonverbal, w/draws to tactile stimuli Laboratory Tests 08/22/20 07:10: White Blood Count 5.2, Red Blood Count 4.18L, Hemoglobin 13.7L, Hematocrit 40.9L , Mean Corpuscular Volume 98, Mean Corpuscular Hemoglobin 32.7H, Mean Corpuscular Hemoglobin Concent 33.4, Red Cell Distribution Width 12.5, Platelet Count 77L, Mean Platelet Volume 9.8, Neutrophils (%) (Auto) , Lymphocytes (%) (Auto) , Monocytes (%) (Auto) , Eosinophils (%) (Auto) , Basophils (%) (Auto) , Differential Total Cells Counted 100, Neutrophils % (Manual) 59, Lymphocytes % (Manual) 14L, Monocytes % (Manual) 25H, Eosinophils % (Manual) 2, Basophils % (Manual) 0, Band Neutrophils 0, Platelet Estimate DecreasedL, Platelet Mo rphology Normal, Red Blood Cell Morphology Normal, Sodium Level 140, Potassium Level 3.1L, Chloride Level 107, Carbon Dioxide Level 27, Anion Gap 6, Blood Urea Nitrogen 18, Creatinine 1.4H, Estimat Glomerular Filtration Rate 49.5, Glucose Level 97, Uric Acid 7.4H, Calcium Level 7.8L, Phosphorus Level 1.8L, Total Bilirubin 2.0H, Direct Bilirubin 1.2H, Gamma Glutamyl Transpeptidase 76, Aspartate Amino Transf (AST/SGOT) 76H, Alanine Aminotransferase (ALT/SGPT) 130H, Alkaline Phosphatase 127H, Total Protein 6.5, Albumin 2.8L, Globulin 3.7, Albumin/Globulin Ratio 0.8L, Hepatitis A IgM Antibody [Pending], Hepatitis B Surface Antigen [Pending], Hepatitis B Core IgM Antibody [Pending], Hepatitis C Antibody [Pending] Current Medications Medications (Trade) Dose Ordered Sig/Fabrizio Route PRN Reason Start Time Stop Time Status Last Admin Dose Admin Acetaminophen (Tylenol) 650 mg Q4H PRN ORAL fever 08/18/20 15:00 09/17/20 14:59 Amlodipine Besylate (Norvasc) 5 mg DAILY ORAL 08/19/20 09:00 09/18/20 08:59 08/19/20 09:47 Aspirin (Ecotrin) 81 mg DAILY ORAL 08/21/20 09:00 10/05/20 08:59 Clonidine HCl (Catapres TTS-1) 1 patch QWEEK TDERMAL 08/19/20 21:00 11/17/20 20:59 08/19/20 22:22 Clonidine HCl (Catapres Tab) 0.1 mg Q4H PRN ORAL For BP above 160 systolic 08/18/20 15:00 11/16/20 14:59 Dextrose 1,000 ml @ 150 mls/hr Q6H40M IV 08/18/20 17:15 09/17/20 17:14 08/22/20 06:38 Dextrose (Dextrose 50%) 25 ml Q30M PRN IV Hypoglycemia 08/18/20 15:00 11/16/20 14:59 Dextrose (Dextrose 50%) 50 ml Q30M PRN IV Hypoglycemia 08/18/20 15:00 11/16/20 14:59 Haloperidol Lactate (Haldol) 5 mg Q6H PRN IM agitation 08/18/20 15:00 10/02/20 14:59 08/22/20 06:27 Ondansetron HCl (Zofran) 4 mg Q6H PRN IVP Nausea & Vomiting 08/18/20 15:00 09/17/20 14:59 Potassium Chloride (K-Dur) 40 meq TWICE A DAY ORAL 08/20/20 18:30 11/18/20 18:29 Tamsulosin HCl (Flomax) 0.4 mg BID ORAL 08/18/20 18:00 09/18/20 08:59 08/19/20 09:46 Assessment/Plan Assessment/Plan ASSESSMENT Multiple small microembolic infarcts ANGI Dehydration Abnormal LFT BPH E/lyte abnormalities Schizophrenia HTN Hx of compression fracture PLAN OF CARE tele MRI brain -> multiply small microembolic infarcts, no hemorrhage mass-effect or shift neuro eval appreciated a/PLT therapy with ASA and statin Echo with bubble study pending Carotid unremarkable cardio eval appreciated IVF monitor renal parameters , lytes ; correct electrolytes as needed, creatinine trending down replace K and P today avoid nephrotoxic DVT and GI prophylaxis failed BSSE LFT trending up Hepatitis panel abd US-> hepatic steatosis; no acute cholecystitis ; nonspecific splenomegaly supportive care case discussed and evaluated by supervising physician Aida Howard NP Aug 22, 2020 09:53
[2020-08-22] MEDS: Aspirin EC 81mg tab ORAL SCH (10:01)
[2020-08-22] MEDS: Tamsulosin 0.4mg cap ORAL SCH ×2 (10:01→17:54)
[2020-08-22] MEDS ORDERED: Potassium Phosphate 20 MM in NS 275 ML IV ONE (11:00)
[2020-08-22 12:00] VITALS: BP_SYST 110; BP_SYST 112; BP_DIAS 57; BP_DIAS 62
--- NOTE | 2020-08-22 12:56 | Nephrology Progress Note ---
Assessment/Plan Problem List: (1) ANGI (acute kidney injury) (2) Renal failure (ARF), acute on chronic (3) Dehydration (4) UTI (urinary tract infection) (5) BPH (benign prostatic hyperplasia) (6) Agitation due to dementia Assessment Acute renal failure Dehydration, leading to free water deficit and hypernatremia History of hypertension BPH History of lumbar vertebral compression fracture History of hypertension History of depression agitation Plan August 22: Labs reviewed. Abnormal electrolytes addressed. Renal parameters improving. Continue per current management. August 21: Labs reviewed. Electrolytes improving. Abnormal electrolytes addressed. Continue per current management. Lipitor and allopurinol held due to abnormal liver function tests August 20: Labs reviewed. Serum sodium declining. Abnormal electrolytes addressed. Continue to hydrate and monitor renal parameters. 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 August 19: Patient periodically agitated and pulls the IV out. On D5W 100 cc an hour. Serum creatinine lowering. Will increase IV fluid to [address] evaluation pending. Labs and medications reviewed. August 18: IV hydration Urine studies and culture Monitor renal parameters Pain medication as needed Psych management as needed Per orders Subjective ROS Limited/Unobtainable: No Constitutional: Reports: malaise, weakness Objective Objective Last 24 Hour Vital Signs Date Time Temp Pulse Resp B/P (MAP) Pulse Ox O2 Delivery O2 Flow Rate FiO2 08/22/20 10:02 71 115/59 08/22/20 09:00 Room Air Room Air 08/22/20 08:00 100.1 71 20 115/59 (77) 99 08/22/20 08:00 55 08/22/20 04:00 61 08/22/20 04:00 97.5 55 20 116/62 (80) 97 08/22/20 00:00 58 08/22/20 00:00 98.1 60 22 121/68 (85) 95 08/21/20 21:00 Room Air 08/21/20 20:00 66 08/21/20 20:00 96.8 62 22 112/70 (84) 96 08/21/20 18:00 73 08/21/20 16:00 98.1 54 18 101/41 (61) 95 08/21/20 13:05 66 Intake and Output 08/21/20 08/22/20 19:00 07:00 Intake Total 750 ml Output Total 200 ml Balance 550 ml Intake IV Total 750 ml Output Urine Total 200 ml # Voids 2 Current Medications Medications (Trade) Dose Ordered Sig/Fabrizio Route PRN Reason Start Time Stop Time Status Last Admin Dose Admin Acetaminophen (Tylenol) 650 mg Q4H PRN ORAL fever 08/18/20 15:00 09/17/20 14:59 Amlodipine Besylate (Norvasc) 5 mg DAILY ORAL 08/19/20 09:00 09/18/20 08:59 08/22/20 10:02 Aspirin (Ecotrin) 81 mg DAILY ORAL 08/21/20 09:00 10/05/20 08:59 08/22/20 10:01 Clonidine HCl (Catapres TTS-1) 1 patch QWEEK TDERMAL 08/19/20 21:00 11/17/20 20:59 08/19/20 22:22 Clonidine HCl (Catapres Tab) 0.1 mg Q4H PRN ORAL For BP above 160 systolic 08/18/20 15:00 11/16/20 14:59 Dextrose 1,000 ml @ 60 mls/hr [id number] IV 08/18/20 17:15 09/17/20 17:14 08/22/20 06:38 Dextrose (Dextrose 50%) 25 ml Q30M PRN IV Hypoglycemia 08/18/20 15:00 11/16/20 14:59 Dextrose (Dextrose 50%) 50 ml Q30M PRN IV Hypoglycemia 08/18/20 15:00 11/16/20 14:59 Haloperidol Lactate (Haldol) 5 mg Q6H PRN IM agitation 08/18/20 15:00 10/02/20 14:59 08/22/20 06:27 Ondansetron HCl (Zofran) 4 mg Q6H PRN IVP Nausea & Vomiting 08/18/20 15:00 09/17/20 14:59 Potassium Phosphate 20 mm/ Sodium Chloride 281.6667 ml @ 46.94 mls/hr ONCE ONCE IV 08/22/20 11:00 08/22/20 17:00 08/22/20 12:23 Potassium Chloride (K-Dur) 40 meq TWICE A DAY ORAL 08/20/20 18:30 11/18/20 18:29 08/22/20 10:02 Tamsulosin HCl (Flomax) 0.4 mg BID ORAL 08/18/20 18:00 09/18/20 08:59 08/22/20 10:01 Laboratory Tests 08/22/20 07:10: White Blood Count 5.2, Red Blood Count 4.18L, Hemoglobin 13.7L, Hematocrit 40.9L , Mean Corpuscular Volume 98, Mean Corpuscular Hemoglobin 32.7H, Mean Corpuscular Hemoglobin Concent 33.4, Red Cell Distribution Width 12.5, Platelet Count 77L, Mean Platelet Volume 9.8, Neutrophils (%) (Auto) , Lymphocytes (%) (Auto) , Monocytes (%) (Auto) , Eosinophils (%) (Auto) , Basophils (%) (Auto) , Differential Total Cells Counted 100, Neutrophils % (Manual) 59, Lymphocytes % (Manual) 14L, Monocytes % (Manual) 25H, Eosinophils % (Manual) 2, Basophils % (Manual) 0, Band Neutrophils 0, Platelet Estimate DecreasedL, Platelet Morphology Normal, Red Blood Cell Morphology Normal, Sodium Level 140, Potassium Level 3.1L, Chloride Level 107, Carbon Dioxide Level 27, Anion Gap 6, Blood Urea Nitrogen 18, Creatinine 1.4H, Estimat Glomerular Filtration Rate 49.5, Glucose Level 97, Uric Acid 7.4H, Calcium Level 7.8L, Phosphorus Level 1.8L, Total Bilirubin 2.0H, Direct Bilirubin 1.2H, Gamma Glutamyl Transpeptidase 76, Aspartate Amino Transf (AST/SGOT) 76H, Alanine Aminotransferase (ALT/SGPT) 130H, Alkaline Phosphatase 127H, Total Protein 6.5, Albumin 2.8L, Globulin 3.7, Albumin/Globulin Ratio 0.8L, Hepatitis A IgM Antibody [Pending], Hepatitis B Surface Antigen [Pending], Hepatitis B Core IgM Antibody [Pending], Hepatitis C Antibody [Pending] Height (Feet): 6 Height (Inches): 0.00 Weight (Pounds): 180 General Appearance: no apparent distress, lethargic Cardiovascular: normal rate Respiratory/Chest: decreased breath sounds Abdomen: distended Gelacio Mata MD Aug 22, 2020 12:56
--- NOTE | 2020-08-22 14:49 | Internal Med Progress Note ---
Subjective Date of Service: Aug 22, 2020 Physician Name Shai Zimmer Attending Physician Andrés Rothman MD Current Medications Medications (Trade) Dose Ordered Sig/Fabrizio Route PRN Reason Start Time Stop Time Status Last Admin Dose Admin Acetaminophen (Tylenol) 650 mg Q4H PRN ORAL fever 08/18/20 15:00 09/17/20 14:59 Amlodipine Besylate (Norvasc) 5 mg DAILY ORAL 08/19/20 09:00 09/18/20 08:59 08/22/20 10:02 Aspirin (Ecotrin) 81 mg DAILY ORAL 08/21/20 09:00 10/05/20 08:59 08/22/20 10:01 Clonidine HCl (Catapres TTS-1) 1 patch QWEEK TDERMAL 08/19/20 21:00 11/17/20 20:59 08/19/20 22:22 Clonidine HCl (Catapres Tab) 0.1 mg Q4H PRN ORAL For BP above 160 systolic 08/18/20 15:00 11/16/20 14:59 Dextrose 1,000 ml @ 60 mls/hr [id number] IV 08/18/20 17:15 09/17/20 17:14 08/22/20 06:38 Dextrose (Dextrose 50%) 25 ml Q30M PRN IV Hypoglycemia 08/18/20 15:00 11/16/20 14:59 Dextrose (Dextrose 50%) 50 ml Q30M PRN IV Hypoglycemia 08/18/20 15:00 11/16/20 14:59 Haloperidol Lactate (Haldol) 5 mg Q6H PRN IM agitation 08/18/20 15:00 10/02/20 14:59 08/22/20 06:27 Ondansetron HCl (Zofran) 4 mg Q6H PRN IVP Nausea & Vomiting 08/18/20 15:00 09/17/20 14:59 Potassium Phosphate 20 mm/ Sodium Chloride 281.6667 ml @ 46.94 mls/hr ONCE ONCE IV 08/22/20 11:00 08/22/20 17:00 08/22/20 12:23 Potassium Chloride (K-Dur) 40 meq TWICE A DAY ORAL 08/20/20 18:30 11/18/20 18:29 08/22/20 10:02 Tamsulosin HCl (Flomax) 0.4 mg BID ORAL 08/18/20 18:00 09/18/20 08:59 08/22/20 10:01 Allergies: Coded Allergies: No Known Allergies (Unverified , 07/22/20) ROS Limited/Unobtainable: Yes Subjective 75 YO M admitted with acute renal failure. Now multiple microembolic brain infarcts. Cover for Int danny-DR Rothman Objective Last Vital Signs Date Time Temp Pulse Resp B/P (MAP) Pulse Ox O2 Delivery O2 Flow Rate FiO2 08/22/20 12:00 98.7 58 18 112/62 (79) 95 08/22/20 09:00 Room Air Room Air 08/18/20 21:00 2.0 Laboratory Tests Test 08/22/20 07:10 White Blood Count 5.2 K/UL (4.8-10.8) Red Blood Count 4.18 M/UL (4.70-6.10) L Hemoglobin 13.7 G/DL (14.2-18.0) L Hematocrit 40.9 % (42.0-52.0) L Mean Corpuscular Volume 98 FL (80-99) Mean Corpuscular Hemoglobin 32.7 PG (27.0-31.0) H Mean Corpuscular Hemoglobin Concent 33.4 G/DL (32.0-36.0) Red Cell Distribution Width 12.5 % (11.6-14.8) Platelet Count 77 K/UL (150-450) L Mean Platelet Volume 9.8 FL (6.5-10.1) Neutrophils (%) (Auto) % (45.0-75.0) Lymphocytes (%) (Auto) % (20.0-45.0) Monocytes (%) (Auto) % (1.0-10.0) Eosinophils (%) (Auto) % (0.0-3.0) Basophils (%) (Auto) % (0.0-2.0) Differential Total Cells Counted 100 Neutrophils % (Manual) 59 % (45-75) Lymphocytes % (Manual) 14 % (20-45) L Monocytes % (Manual) 25 % (1-10) H Eosinophils % (Manual) 2 % (0-3) Basophils % (Manual) 0 % (0-2) Band Neutrophils 0 % (0-8) Platelet Estimate Decreased L Platelet Morphology Normal Red Blood Cell Morphology Normal Sodium Level 140 MMOL/L (136-145) Potassium Level 3.1 MMOL/L (3.5-5.1) L Chloride Level 107 MMOL/L (98-107) Carbon Dioxide Level 27 MMOL/L (21-32) Anion Gap 6 mmol/L (5-15) Blood Urea Nitrogen 18 mg/dL (7-18) Creatinine 1.4 MG/DL (0.55-1.30) H Estimat Glomerular Filtration Rate 49.5 mL/min (>60) Glucose Level 97 MG/DL (74-106) Uric Acid 7.4 MG/DL (2.6-7.2) H Calcium Level 7.8 MG/DL (8.5-10.1) L Phosphorus Level 1.8 MG/DL (2.5-4.9) L Total Bilirubin 2.0 MG/DL (0.2-1.0) H Direct Bilirubin 1.2 MG/DL (0.0-0.3) H Gamma Glutamyl Transpeptidase 76 U/L (5-85) Aspartate Amino Transf (AST/SGOT) 76 U/L (15-37) H Alanine Aminotransferase (ALT/SGPT) 130 U/L (12-78) H Alkaline Phosphatase 127 U/L (46-116) H Total Protein 6.5 G/DL (6.4-8.2) Albumin 2.8 G/DL (3.4-5.0) L Globulin 3.7 g/dL Albumin/Globulin Ratio 0.8 (1.0-2.7) L Hepatitis A IgM Antibody Pending Hepatitis B Surface Antigen Pending Hepatitis B Core IgM Antibody Pending Hepatitis C Antibody Pending Intake and Output 08/21/20 08/22/20 19:00 07:00 Intake Total 750 ml Output Total 200 ml Balance 550 ml Intake IV Total 750 ml Output Urine Total 200 ml # Voids 2 Objective Objective General: No acute distress, awake and responsive, confused. HEENT: NCAT, sclera anicteric, PERRL, EOMI. Neck: Supple, no significant jugular venous distention, Lungs: Good inspiratory effort,clear to auscultation bilaterally, no Wheeze or Rales. Heart: Regular rate and rhythm, normal S1/S2, no murmur. Abdomen: soft, nontender, nondistended. Normoactive bowel sounds, obesity. / Rectal: Refused and deferred. Extremities: No Cyanosis , clubbing or edema. Neuro: A&O x 1, Able to move all extremities Skin: warm, no rashes or lesions Assessment/Plan Assessment/Plan Assessment/Plan Assessment/Plan Assessment/Plan ASSESSMENT: 1. Acute kidney injury on chronic renal insufficiency. 2. Dehydration. 3. Abnormal liver function. 4. History of schizophrenia disorder. 5. BPH. 6. Failure to thrive in adult. 7. Hypertension. 8. Impaired mobility. 9. History of compression fracture of the thoracic as well as lumbar spine due to the old trauma. 10. Depression. 11. Possible urinary tract infection. 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 13. Multiple microembolic brain infarcts PLAN: Telemetry status Monitor laboratory. IV hydration. Code status: Full Code. DVT prophylaxis: heparin subcutaneous. Dr. Gelacio Mata from Nephrology Dr. Byrne from Pulmonary Critical Care. failed bedside swallow study Neuro=Dr Whitfield Await Bubble Echocardiogram cardiology=Dr Crespo Abdominal US: 1. Sludge within the distended gallbladder but no acute cholecystitis. 2. Left renal cyst. 3. Hepatic steatosis. 4. Nonspecific splenomegaly. MRI Brain: MULTIPLE SMALL FOCI OF RESTRICTED DIFFUSION IN THE POSTERIOR RIGHT TEMPORAL, RIGHT OCCIPITAL LOBES AND RIGHT THALAMUS. ALSO A SMALL PUNCTATE FOCUS OF RESTRICTED DIFFUSION IN THE LEFT OCCIPITAL LOBE. FINDINGS SUGGEST MULTIPLE SMALL MICROEMBOLIC INFARCTS. NO HEMORRHAGE, MASS EFFECT OR SHIFT. Shai Zimmer MD Aug 22, 2020 14:49
[2020-08-22 16:00] VITALS: BP 138/79
[2020-08-22 20:00] VITALS: BP 113/69
--- NOTE | 2020-08-22 20:18 | Neurology Progress Note ---
Interim History Interim History ROS Limited/Unobtainable: Yes Interim History 08/21 late entry clinically more alert pending studies Objective Physical Exam General: well developed Neurologic Exam Objective somnolent, open eyes, non verbal, withdraws to pain Left hemiparesis Impression/Recommendations Diagnostic Impression Acute ischemic stroke bilateral hemispheres, anterior and posterior circulation high concern for embolic Tele cont asa daily statin daily Echo Carotid US Natalio Whitfield MD Aug 22, 2020 20:18
--- NOTE | 2020-08-22 20:19 | Neurology Progress Note ---
Interim History Interim History ROS Limited/Unobtainable: Yes Interim History Doing well, no new deficits carotid US reviewed - no stenosis Pending echo Objective Physical Exam Last Vital Signs Date Time Temp Pulse Resp B/P (MAP) Pulse Ox O2 Delivery O2 Flow Rate FiO2 08/22/20 16:00 98.5 56 20 138/79 (98) 93 08/22/20 09:00 Room Air Room Air 08/18/20 21:00 2.0 Laboratory Tests Test 08/22/20 07:10 White Blood Count 5.2 K/UL (4.8-10.8) Red Blood Count 4.18 M/UL (4.70-6.10) L Hemoglobin 13.7 G/DL (14.2-18.0) L Hematocrit 40.9 % (42.0-52.0) L Mean Corpuscular Volume 98 FL (80-99) Mean Corpuscular Hemoglobin 32.7 PG (27.0-31.0) H Mean Corpuscular Hemoglobin Concent 33.4 G/DL (32.0-36.0) Red Cell Distribution Width 12.5 % (11.6-14.8) Platelet Count 77 K/UL (150-450) L Mean Platelet Volume 9.8 FL (6.5-10.1) Neutrophils (%) (Auto) % (45.0-75.0) Lymphocytes (%) (Auto) % (20.0-45.0) Monocytes (%) (Auto) % (1.0-10.0) Eosinophils (%) (Auto) % (0.0-3.0) Basophils (%) (Auto) % (0.0-2.0) Differential Total Cells Counted 100 Neutrophils % (Manual) 59 % (45-75) Lymphocytes % (Manual) 14 % (20-45) L Monocytes % (Manual) 25 % (1-10) H Eosinophils % (Manual) 2 % (0-3) Basophils % (Manual) 0 % (0-2) Band Neutrophils 0 % (0-8) Platelet Estimate Decreased L Platelet Morphology Normal Red Blood Cell Morphology Normal Sodium Level 140 MMOL/L (136-145) Potassium Level 3.1 MMOL/L (3.5-5.1) L Chloride Level 107 MMOL/L (98-107) Carbon Dioxide Level 27 MMOL/L (21-32) Anion Gap 6 mmol/L (5-15) Blood Urea Nitrogen 18 mg/dL (7-18) Creatinine 1.4 MG/DL (0.55-1.30) H Estimat Glomerular Filtration Rate 49.5 mL/min (>60) Glucose Level 97 MG/DL (74-106) Uric Acid 7.4 MG/DL (2.6-7.2) H Calcium Level 7.8 MG/DL (8.5-10.1) L Phosphorus Level 1.8 MG/DL (2.5-4.9) L Total Bilirubin 2.0 MG/DL (0.2-1.0) H Direct Bilirubin 1.2 MG/DL (0.0-0.3) H Gamma Glutamyl Transpeptidase 76 U/L (5-85) Aspartate Amino Transf (AST/SGOT) 76 U/L (15-37) H Alanine Aminotransferase (ALT/SGPT) 130 U/L (12-78) H Alkaline Phosphatase 127 U/L (46-116) H Total Protein 6.5 G/DL (6.4-8.2) Albumin 2.8 G/DL (3.4-5.0) L Globulin 3.7 g/dL Albumin/Globulin Ratio 0.8 (1.0-2.7) L Hepatitis A IgM Antibody Pending Hepatitis B Surface Antigen Pending Hepatitis B Core IgM Antibody Pending Hepatitis C Antibody Pending General: well developed Neurologic Exam Objective somnolent, open eyes, non verbal, withdraws to pain Left hemiparesis Impression/Recommendations Diagnostic Impression Acute ischemic stroke bilateral hemispheres, anterior and posterior circulation high concern for embolic Tele cont asa daily statin daily Echo pending Carotid US no significant athero Natalio Whitfield MD Aug 22, 2020 20:19
--- NOTE | 2020-08-22 20:34 | Cardiology Report ---
APPROVED REPORT EKG Measurement Heart [id number] <Conclusion> Sinus rhythm with 1st degree AV block with occasional ventricular-paced complexes Anterior infarct, age undetermined Abnormal ECG
[2020-08-23] VITALS (7 sets, daily range): BP systolic 115–134; BP diastolic 56–79
[2020-08-23 06:36] LABS: HEMATOCRIT 40.2 % (42.0-52.0); HEMOGLOBIN 13.7 G/DL (14.2-18.0); MEAN CORPUSCULAR VOLUME 98 FL (80-99); PLATELET COUNT 92 K/UL (150-450); RED BLOOD COUNT 4.11 M/UL (4.70-6.10); RED CELL DISTRIBUTION WIDTH 12.1 % (11.6-14.8); WHITE BLOOD COUNT 5.1 K/UL (4.8-10.8)
[2020-08-23 06:58] LABS: CALCIUM 7.6 MG/DL (8.5-10.1); CREATININE 1.2 MG/DL (0.55-1.30); PHOSPHORUS 1.9 MG/DL (2.5-4.9); POTASSIUM 3.5 MMOL/L (3.5-5.1)
[2020-08-23] MEDS: Tamsulosin 0.4mg cap ORAL SCH ×2 (08:52→18:00)
[2020-08-23] MEDS: Aspirin EC 81mg tab ORAL SCH (08:52)
--- NOTE | 2020-08-23 09:30 | Cardiac Electrophysiology PN ---
Assessment/Plan Assessment/Plan 1. Multiple small microembolic infarcts. Rule out paroxysmal atrial fibrillation or paradoxical embolus. Echocardiogram with bubble study pending also to make sure the patient does not have a PFO. Neurology evaluation is also in progress 2. SSS with more than 4 second pause. Not on Dig, BB or Ca tay while awake at 5 pm Only on prn Clonidine that he didn't get. Likely needs pacer. This is also suggestive of PAF as caouse of his CVA 3. Acute renal failure. Creatinine is improving with hydration. 4. Agitation and dementia. 5. History of lumbar vertebral compression fracture. 6. Hypernatremia. DW Dr Rothman and Adolfo Subjective Subjective Had > 4second asystole while awake yesterday at around 5 pm. Not on any AVN tay Objective Last 24 Hour Vital Signs Date Time Temp Pulse Resp B/P (MAP) Pulse Ox O2 Delivery O2 Flow Rate FiO2 08/23/20 08:52 64 116/61 08/23/20 08:00 97.0 64 18 116/61 (79) 95 08/23/20 04:00 98.1 64 20 127/67 (87) 94 08/23/20 04:00 66 08/23/20 00:00 97.9 64 18 129/79 (96) 96 08/23/20 00:00 63 08/22/20 21:00 Room Air Room Air 08/22/20 20:00 97.9 66 22 113/69 (84) 97 08/22/20 20:00 68 08/22/20 16:00 98.5 56 20 138/79 (98) 93 08/22/20 16:00 58 08/22/20 12:00 98.7 58 18 112/62 (79) 95 08/22/20 12:00 52 08/22/20 10:02 71 115/59 Intake and Output 08/22/20 08/23/20 19:00 07:00 # Voids 3 Laboratory Tests Test 08/23/20 05:10 White Blood Count 5.1 K/UL (4.8-10.8) Red Blood Count 4.11 M/UL (4.70-6.10) L Hemoglobin 13.7 G/DL (14.2-18.0) L Hematocrit 40.2 % (42.0-52.0) L Mean Corpuscular Volume 98 FL (80-99) Mean Corpuscular Hemoglobin 33.2 PG (27.0-31.0) H Mean Corpuscular Hemoglobin Concent 33.9 G/DL (32.0-36.0) Red Cell Distribution Width 12.1 % (11.6-14.8) Platelet Count 92 K/UL (150-450) L Mean Platelet Volume 9.6 FL (6.5-10.1) Neutrophils (%) (Auto) % (45.0-75.0) Lymphocytes (%) (Auto) % (20.0-45.0) Monocytes (%) (Auto) % (1.0-10.0) Eosinophils (%) (Auto) % (0.0-3.0) Basophils (%) (Auto) % (0.0-2.0) Neutrophils % (Manual) Pending Lymphocytes % (Manual) Pending Platelet Estimate Pending Platelet Morphology Pending Sodium Level 139 MMOL/L (136-145) Potassium Level 3.5 MMOL/L (3.5-5.1) Chloride Level 108 MMOL/L (98-107) H Carbon Dioxide Level 25 MMOL/L (21-32) Anion Gap 7 mmol/L (5-15) Blood Urea Nitrogen 15 mg/dL (7-18) Creatinine 1.2 MG/DL (0.55-1.30) Estimat Glomerular Filtration Rate 59.2 mL/min (>60) Glucose Level 97 MG/DL (74-106) Calcium Level 7.6 MG/DL (8.5-10.1) L Phosphorus Level 1.9 MG/DL (2.5-4.9) L Magnesium Level 2.4 MG/DL (1.8-2.4) Objective HEAD AND NECK: No JVD. LUNGS: Coarse rhonchi. CARDIOVASCULAR: Regular S1 and S2 with no gallop. ABDOMEN: Soft. EXTREMITIES: No pitting edema. Carlos Eduardo Crespo MD Aug 23, 2020 09:30
--- NOTE | 2020-08-23 10:30 | Pulmonology Progress Note ---
Subjective ROS Limited/Unobtainable: Yes Constitutional: Reports: no symptoms Allergies: Coded Allergies: No Known Allergies (Unverified , 07/22/20) All Systems: reviewed and negative except above Objective Last 24 Hour Vital Signs Date Time Temp Pulse Resp B/P (MAP) Pulse Ox O2 Delivery O2 Flow Rate FiO2 08/23/20 08:52 64 116/61 08/23/20 08:00 97.0 64 18 116/61 (79) 95 08/23/20 04:00 98.1 64 20 127/67 (87) 94 08/23/20 04:00 66 08/23/20 00:00 97.9 64 18 129/79 (96) 96 08/23/20 00:00 63 08/22/20 21:00 Room Air Room Air 08/22/20 20:00 97.9 66 22 113/69 (84) 97 08/22/20 20:00 68 08/22/20 16:00 98.5 56 20 138/79 (98) 93 08/22/20 16:00 58 08/22/20 12:00 98.7 58 18 112/62 (79) 95 08/22/20 12:00 52 Intake and Output 08/22/20 08/23/20 19:00 07:00 # Voids 3 General Appearance: no acute distress, other - elderly male, not verbally responsive HEENT: normocephalic, atraumatic Respiratory: chest wall non-tender, lungs clear, no respiratory distress Cardiovascular: normal rate - tele with SR 1 st degree AV block Abdomen: soft, non tender, non distended Extremities: no edema, pedal pulses normal Skin: no rash Neurologic: other - left hemiparesis, nonverbal, w/draws to tactile stimuli Laboratory Tests 08/23/20 05:10: White Blood Count 5.1, Red Blood Count 4.11L, Hemoglobin 13.7L, Hematocrit 40.2L , Mean Corpuscular Volume 98, Mean Corpuscular Hemoglobin 33.2H, Mean Corpuscular Hemoglobin Concent 33.9, Red Cell Distribution Width 12.1, Platelet Count 92L, Mean Platelet Volume 9.6, Neutrophils (%) (Auto) , Lymphocytes (%) (Auto) , Monocytes (%) (Auto) , Eosinophils (%) (Auto) , Basophils (%) (Auto) , Differential Total Cells Counted 100, Neutrophils % (Manual) 48, Lymphocytes % (Manual) 23, Monocytes % (Manual) 28H, Eosinophils % (Manual) 1, Basophils % (Manual) 0, Band Neutrophils 0, Platelet Estimate DecreasedL, Platelet Morphology Normal, Red Blood Cell Morphology Normal, Sodium Level 139, Potassium Level 3.5, Chloride Level 108H, Carbon Dioxide Level 25, Anion Gap 7, Blood Urea Nitrogen 15, Creatinine 1.2, Estimat Glomerular Filtration Rate 59.2, Glucose Level 97, Calcium Level 7.6L, Phosphorus Level 1.9L, Magnesium Level 2.4 Current Medications Medications (Trade) Dose Ordered Sig/Fabrizio Route PRN Reason Start Time Stop Time Status Last Admin Dose Admin Acetaminophen (Tylenol) 650 mg Q4H PRN ORAL fever 08/18/20 15:00 09/17/20 14:59 Amlodipine Besylate (Norvasc) 5 mg DAILY ORAL 08/19/20 09:00 09/18/20 08:59 08/23/20 08:52 Aspirin (Ecotrin) 81 mg DAILY ORAL 08/21/20 09:00 10/05/20 08:59 08/23/20 08:52 Dextrose 1,000 ml @ 60 mls/hr [id number] IV 08/18/20 17:15 09/17/20 17:14 08/22/20 18:55 Dextrose (Dextrose 50%) 25 ml Q30M PRN IV Hypoglycemia 08/18/20 15:00 11/16/20 14:59 Dextrose (Dextrose 50%) 50 ml Q30M PRN IV Hypoglycemia 08/18/20 15:00 11/16/20 14:59 Haloperidol Lactate (Haldol) 5 mg Q6H PRN IM agitation 08/18/20 15:00 10/02/20 14:59 08/22/20 06:27 Ondansetron HCl (Zofran) 4 mg Q6H PRN IVP Nausea & Vomiting 08/18/20 15:00 09/17/20 14:59 Potassium Phosphate 20 mm/ Sodium Chloride 281.6667 ml @ 46.944 m... ONCE ONCE IV 08/23/20 11:00 08/23/20 16:59 Potassium Chloride (K-Dur) 40 meq TWICE A DAY ORAL 08/20/20 18:30 11/18/20 18:29 08/23/20 08:52 Tamsulosin HCl (Flomax) 0.4 mg BID ORAL 08/18/20 18:00 09/18/20 08:59 08/23/20 08:52 Assessment/Plan Problems: (1) Sick sinus syndrome (2) Hypernatremia (3) Renal failure (ARF), acute on chronic (4) HTN (hypertension) (5) Failure to thrive in adult (6) BPH (benign prostatic hyperplasia) (7) Schizoaffective disorder Assessment/Plan had an episode of 5 1/2 second sinus pause on monitor bubble study was negative renal function getting better swallow study done, GI evaluation MRI of brain reviewed., multiple small embolic infarcts Jaclyn Byrne MD Aug 23, 2020 10:30
--- NOTE | 2020-08-23 10:45 | Nephrology Progress Note ---
Assessment/Plan Problem List: (1) ANGI (acute kidney injury) (2) Renal failure (ARF), acute on chronic (3) Dehydration (4) UTI (urinary tract infection) (5) BPH (benign prostatic hyperplasia) (6) Agitation due to dementia Assessment Acute renal failure Dehydration, leading to free water deficit and hypernatremia History of hypertension BPH History of lumbar vertebral compression fracture History of hypertension History of depression agitation Plan August 23: Labs reviewed. Abnormal electrolytes addressed. Patient had a 4- second pause yesterday and another 5-second pause today. Discussed with Dr. Crespo. Patient due transfer to ICU. Pacemaker insertion is being entertained. August 22: Labs reviewed. Abnormal electrolytes addressed. Renal parameters improving. Continue per current management. August 21: Labs reviewed. Electrolytes improving. Abnormal electrolytes addressed. Continue per current management. Lipitor and allopurinol held due to abnormal liver function tests August 20: Labs reviewed. Serum sodium declining. Abnormal electrolytes addressed. Continue to hydrate and monitor renal parameters. 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 August 19: Patient periodically agitated and pulls the IV out. On D5W 100 cc an hour. Serum creatinine lowering. Will increase IV fluid to [address] evaluation pending. Labs and medications reviewed. August 18: IV hydration Urine studies and culture Monitor renal parameters Pain medication as needed Psych management as needed Per orders Subjective ROS Limited/Unobtainable: No Constitutional: Reports: malaise Objective Objective Last 24 Hour Vital Signs Date Time Temp Pulse Resp B/P (MAP) Pulse Ox O2 Delivery O2 Flow Rate FiO2 08/23/20 08:52 64 116/61 08/23/20 08:00 97.0 64 18 116/61 (79) 95 08/23/20 04:00 98.1 64 20 127/67 (87) 94 08/23/20 04:00 66 08/23/20 00:00 97.9 64 18 129/79 (96) 96 08/23/20 00:00 63 08/22/20 21:00 Room Air Room Air 08/22/20 20:00 97.9 66 22 113/69 (84) 97 08/22/20 20:00 68 08/22/20 16:00 98.5 56 20 138/79 (98) 93 08/22/20 16:00 58 08/22/20 12:00 98.7 58 18 112/62 (79) 95 08/22/20 12:00 52 Intake and Output 08/22/20 08/23/20 19:00 07:00 # Voids 3 Current Medications Medications (Trade) Dose Ordered Sig/Fabrizio Route PRN Reason Start Time Stop Time Status Last Admin Dose Admin Acetaminophen (Tylenol) 650 mg Q4H PRN ORAL fever 08/18/20 15:00 09/17/20 14:59 Amlodipine Besylate (Norvasc) 5 mg DAILY ORAL 08/19/20 09:00 09/18/20 08:59 08/23/20 08:52 Aspirin (Ecotrin) 81 mg DAILY ORAL 08/21/20 09:00 10/05/20 08:59 08/23/20 08:52 Dextrose 1,000 ml @ 60 mls/hr [id number] IV 08/18/20 17:15 09/17/20 17:14 08/22/20 18:55 Dextrose (Dextrose 50%) 25 ml Q30M PRN IV Hypoglycemia 08/18/20 15:00 11/16/20 14:59 Dextrose (Dextrose 50%) 50 ml Q30M PRN IV Hypoglycemia 08/18/20 15:00 11/16/20 14:59 Haloperidol Lactate (Haldol) 5 mg Q6H PRN IM agitation 08/18/20 15:00 10/02/20 14:59 08/22/20 06:27 Ondansetron HCl (Zofran) 4 mg Q6H PRN IVP Nausea & Vomiting 08/18/20 15:00 09/17/20 14:59 Potassium Phosphate 20 mm/ Sodium Chloride 281.6667 ml @ 46.944 m... ONCE ONCE IV 08/23/20 11:00 08/23/20 16:59 Potassium Chloride (K-Dur) 40 meq TWICE A DAY ORAL 08/20/20 18:30 11/18/20 18:29 08/23/20 08:52 Tamsulosin HCl (Flomax) 0.4 mg BID ORAL 08/18/20 18:00 09/18/20 08:59 08/23/20 08:52 Laboratory Tests 08/23/20 05:10: White Blood Count 5.1, Red Blood Count 4.11L, Hemoglobin 13.7L, Hematocrit 40.2L , Mean Corpuscular Volume 98, Mean Corpuscular Hemoglobin 33.2H, Mean Corpuscular Hemoglobin Concent 33.9, Red Cell Distribution Width 12.1, Platelet Count 92L, Mean Platelet Volume 9.6, Neutrophils (%) (Auto) , Lymphocytes (%) (Auto) , Monocytes (%) (Auto) , Eosinophils (%) (Auto) , Basophils (%) (Auto) , Differential Total Cells Counted 100, Neutrophils % (Manual) 48, Lymphocytes % (Manual) 23, Monocytes % (Manual) 28H, Eosinophils % (Manual) 1, Basophils % (Manual) 0, Band Neutrophils 0, Platelet Estimate DecreasedL, Platelet Morphology Normal, Red Blood Cell Morphology Normal, Sodium Level 139, Potassium Level 3.5, Chloride Level 108H, Carbon Dioxide Level 25, Anion Gap 7, Blood Urea Nitrogen 15, Creatinine 1.2, Estimat Glomerular Filtration Rate 59.2, Glucose Level 97, Calcium Level 7.6L, Phosphorus Level 1.9L, Magnesium Level 2.4 Height (Feet): 6 Height (Inches): 0.00 Weight (Pounds): 180 General Appearance: no apparent distress Cardiovascular: other - Variable Respiratory/Chest: decreased breath sounds Gelacio Mata MD Aug 23, 2020 10:45
[2020-08-23] MEDS ORDERED: Potassium Phosphate 20 MM in NS 275 ML IV ONE (11:00)
[2020-08-23] MEDS: DOPamine 400mg/250ml 250 ML IV SCH ×2 (12:53→20:01)
[2020-08-23] MEDS ORDERED: Lidocaine 1% Plain 30 ml INJ PRN (14:55)
[2020-08-23] MEDS ORDERED: Heparin1,000 units/500ml Premix(Conc:2 units/ml) IV PRN (14:55)
--- NOTE | 2020-08-23 17:39 | Brief Operative Note ---
Immediate Post Operative Note Operative Note Pre-op Diagnosis: needs IV access Procedure: PICC Post-op Diagnosis: same as pre-op Surgeon: IRENA Anesthesia: local Specimen: none Complications: none Fluids: none Implant(s) used?: No Roland Livingston MD Aug 23, 2020 17:39
--- NOTE | 2020-08-23 18:06 | Diagnostic Imaging Report ---
Indication: Shortness of breath Technique: One view of the chest Comparison: 08/18/2020 Findings: Again demonstrated is minimal atelectasis in the left lung base. Less optimal inspiration currently. The heart is upper limits normal in size. The remainder the lungs and pleural spaces are clear. There is no significant change Impression: No acute process
--- NOTE | 2020-08-23 18:10 | Diagnostic Imaging Report ---
Indications: Needs long-term IV access Technique: Ultrasound confirms patent compressible left basilic vein. Total sterile technique, including sterile probe cover and sterile gel, hat, mask, sterile gown, large sterile drape, and preparation with 2% chlorhexidine utilized. Local anesthesia with 1% lidocaine. Under real-time ultrasound guidance, puncture basilic vein using 21-gauge needle, documented and archived, passage 0.018 guidewire under direct fluoroscopy, which was used to determine appropriate catheter length, exchange for 4 Greek peel-away sheath. 4 Greek Bard dual-lumen power PICC cut to 42 cm. It was inserted through the peel-away sheath. Peel-away sheath and guidewire removed. Catheter fixed to the skin. Both catheter ports aspirated and flushed. Patient tolerated procedure well, without immediate complication. Digital radiograph documents satisfactory catheter tip position, at the cavoatrial junction. Total fluoroscopy time 26.7 seconds. Total dose area product [id number] [id number] Total number of images: 1 Impression: Successful placement of left arm PICC under sonographic and fluoroscopic guidance, as described above.
--- NOTE | 2020-08-23 18:44 | Internal Med Progress Note ---
Subjective Date of Service: Aug 23, 2020 Physician Name Shai Zimmer Attending Physician Andrés Rothman MD Current Medications Medications (Trade) Dose Ordered Sig/Fabrizio Route PRN Reason Start Time Stop Time Status Last Admin Dose Admin Acetaminophen (Tylenol) 650 mg Q4H PRN ORAL fever 08/18/20 15:00 09/17/20 14:59 Amlodipine Besylate (Norvasc) 5 mg DAILY ORAL 08/19/20 09:00 09/18/20 08:59 08/23/20 08:52 Aspirin (Ecotrin) 81 mg DAILY ORAL 08/21/20 09:00 10/05/20 08:59 08/23/20 08:52 Chlorhexidine Gluconate (Jennifer-Hex 2%) 1 applic DAILY@2000 TOPIC 08/23/20 20:00 11/21/20 19:59 Dextrose 1,000 ml @ 60 mls/hr [id number] IV 08/18/20 17:15 09/17/20 17:14 08/23/20 11:48 Dextrose (Dextrose 50%) 25 ml Q30M PRN IV Hypoglycemia 08/18/20 15:00 11/16/20 14:59 Dextrose (Dextrose 50%) 50 ml Q30M PRN IV Hypoglycemia 08/18/20 15:00 11/16/20 14:59 Dopamine HCl/ Dextrose 250 ml @ 15.309 mls/ hr Q24H IV 08/23/20 12:39 08/26/20 12:38 Haloperidol Lactate (Haldol) 5 mg Q6H PRN IM agitation 08/18/20 15:00 10/02/20 14:59 08/22/20 06:27 Heparin Sodium/ Sodium Chloride (Heparin 1000 units/500ml Premix) 1,000 unit ONCE PRN IV PICC 08/23/20 14:55 08/23/20 23:59 Lidocaine HCl (Xylocaine 1% 30ml) 30 ml ONCE PRN INJ PICC 08/23/20 14:55 08/23/20 23:59 Ondansetron HCl (Zofran) 4 mg Q6H PRN IVP Nausea & Vomiting 08/18/20 15:00 09/17/20 14:59 Potassium Chloride (K-Dur) 40 meq TWICE A DAY ORAL 08/20/20 18:30 11/18/20 18:29 08/23/20 08:52 Tamsulosin HCl (Flomax) 0.4 mg BID ORAL 08/18/20 18:00 09/18/20 08:59 08/23/20 08:52 Allergies: Coded Allergies: No Known Allergies (Unverified , 07/22/20) ROS Limited/Unobtainable: Yes Subjective 75 YO M admitted with acute renal failure. Now multiple microembolic brain infarcts. Cover for Int med-DR Rothman. Transferred to Step Down due to frequent periods of asystole lasting 4-5 sec Objective Last Vital Signs Date Time Temp Pulse Resp B/P (MAP) Pulse Ox O2 Delivery O2 Flow Rate FiO2 08/23/20 16:00 97.0 60 20 134/56 (82) 96 08/23/20 09:00 Room Air Room Air 08/18/20 21:00 2.0 Laboratory Tests Test 08/23/20 05:10 White Blood Count 5.1 K/UL (4.8-10.8) Red Blood Count 4.11 M/UL (4.70-6.10) L Hemoglobin 13.7 G/DL (14.2-18.0) L Hematocrit 40.2 % (42.0-52.0) L Mean Corpuscular Volume 98 FL (80-99) Mean Corpuscular Hemoglobin 33.2 PG (27.0-31.0) H Mean Corpuscular Hemoglobin Concent 33.9 G/DL (32.0-36.0) Red Cell Distribution Width 12.1 % (11.6-14.8) Platelet Count 92 K/UL (150-450) L Mean Platelet Volume 9.6 FL (6.5-10.1) Neutrophils (%) (Auto) % (45.0-75.0) Lymphocytes (%) (Auto) % (20.0-45.0) Monocytes (%) (Auto) % (1.0-10.0) Eosinophils (%) (Auto) % (0.0-3.0) Basophils (%) (Auto) % (0.0-2.0) Differential Total Cells Counted 100 Neutrophils % (Manual) 48 % (45-75) Lymphocytes % (Manual) 23 % (20-45) Monocytes % (Manual) 28 % (1-10) H Eosinophils % (Manual) 1 % (0-3) Basophils % (Manual) 0 % (0-2) Band Neutrophils 0 % (0-8) Platelet Estimate Decreased L Platelet Morphology Normal Red Blood Cell Morphology Normal Sodium Level 139 MMOL/L (136-145) Potassium Level 3.5 MMOL/L (3.5-5.1) Chloride Level 108 MMOL/L (98-107) H Carbon Dioxide Level 25 MMOL/L (21-32) Anion Gap 7 mmol/L (5-15) Blood Urea Nitrogen 15 mg/dL (7-18) Creatinine 1.2 MG/DL (0.55-1.30) Estimat Glomerular Filtration Rate 59.2 mL/min (>60) Glucose Level 97 MG/DL (74-106) Calcium Level 7.6 MG/DL (8.5-10.1) L Phosphorus Level 1.9 MG/DL (2.5-4.9) L Magnesium Level 2.4 MG/DL (1.8-2.4) Intake and Output 08/22/20 08/23/20 19:00 07:00 # Voids 3 Objective Objective General: No acute distress, awake and responsive, confused. HEENT: NCAT, sclera anicteric, PERRL, EOMI. Neck: Supple, no significant jugular venous distention, Lungs: Good inspiratory effort,clear to auscultation bilaterally, no Wheeze or Rales. Heart: Regular rate and rhythm, normal S1/S2, no murmur. Abdomen: soft, nontender, nondistended. Normoactive bowel sounds, obesity. / Rectal: Refused and deferred. Extremities: No Cyanosis , clubbing or edema. Neuro: A&O x 1, Able to move all extremities Skin: warm, no rashes or lesions Assessment/Plan Assessment/Plan Assessment/Plan Assessment/Plan Assessment/Plan ASSESSMENT: 1. Acute kidney injury on chronic renal insufficiency. 2. Dehydration. 3. Abnormal liver function. 4. History of schizophrenia disorder. 5. BPH. 6. Failure to thrive in adult. 7. Hypertension. 8. Impaired mobility. 9. History of compression fracture of the thoracic as well as lumbar spine due to the old trauma. 10. Depression. 11. Possible urinary tract infection. 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 Sick sinus syndrome with frequent episodes of asystole 15. probable paroxysmal atrial fibrillation PLAN: Telemetry status Monitor laboratory. IV hydration. Code status: Full Code. DVT prophylaxis: heparin subcutaneous. Dr. Gelacio Mata from Nephrology Dr. Byrne from Pulmonary Critical Care. failed bedside swallow study Neuro=Dr Whitfield Await Bubble Echocardiogram cardiology=Dr Crespo will require pacemaker per cardiology Abdominal US: 1. Sludge within the distended gallbladder but no acute cholecystitis. 2. Left renal cyst. 3. Hepatic steatosis. 4. Nonspecific splenomegaly. MRI Brain: MULTIPLE SMALL FOCI OF RESTRICTED DIFFUSION IN THE POSTERIOR RIGHT TEMPORAL, RIGHT OCCIPITAL LOBES AND RIGHT THALAMUS. ALSO A SMALL PUNCTATE FOCUS OF RESTRICTED DIFFUSION IN THE LEFT OCCIPITAL LOBE. FINDINGS SUGGEST MULTIPLE SMALL MICROEMBOLIC INFARCTS. NO HEMORRHAGE, MASS EFFECT OR SHIFT. Shia Zimmer MD Aug 23, 2020 18:44
--- NOTE | 2020-08-23 19:03 | Neurology Progress Note ---
Interim History Interim History ROS Limited/Unobtainable: Yes Interim History seen in am, remains confused having episode of bradycaria and pauses transferred to tele montored Objective Physical Exam Last Vital Signs Date Time Temp Pulse Resp B/P (MAP) Pulse Ox O2 Delivery O2 Flow Rate FiO2 08/23/20 16:00 97.0 60 20 134/56 (82) 96 08/23/20 09:00 Room Air Room Air 08/18/20 21:00 2.0 Laboratory Tests Test 08/23/20 05:10 White Blood Count 5.1 K/UL (4.8-10.8) Red Blood Count 4.11 M/UL (4.70-6.10) L Hemoglobin 13.7 G/DL (14.2-18.0) L Hematocrit 40.2 % (42.0-52.0) L Mean Corpuscular Volume 98 FL (80-99) Mean Corpuscular Hemoglobin 33.2 PG (27.0-31.0) H Mean Corpuscular Hemoglobin Concent 33.9 G/DL (32.0-36.0) Red Cell Distribution Width 12.1 % (11.6-14.8) Platelet Count 92 K/UL (150-450) L Mean Platelet Volume 9.6 FL (6.5-10.1) Neutrophils (%) (Auto) % (45.0-75.0) Lymphocytes (%) (Auto) % (20.0-45.0) Monocytes (%) (Auto) % (1.0-10.0) Eosinophils (%) (Auto) % (0.0-3.0) Basophils (%) (Auto) % (0.0-2.0) Differential Total Cells Counted 100 Neutrophils % (Manual) 48 % (45-75) Lymphocytes % (Manual) 23 % (20-45) Monocytes % (Manual) 28 % (1-10) H Eosinophils % (Manual) 1 % (0-3) Basophils % (Manual) 0 % (0-2) Band Neutrophils 0 % (0-8) Platelet Estimate Decreased L Platelet Morphology Normal Red Blood Cell Morphology Normal Sodium Level 139 MMOL/L (136-145) Potassium Level 3.5 MMOL/L (3.5-5.1) Chloride Level 108 MMOL/L (98-107) H Carbon Dioxide Level 25 MMOL/L (21-32) Anion Gap 7 mmol/L (5-15) Blood Urea Nitrogen 15 mg/dL (7-18) Creatinine 1.2 MG/DL (0.55-1.30) Estimat Glomerular Filtration Rate 59.2 mL/min (>60) Glucose Level 97 MG/DL (74-106) Calcium Level 7.6 MG/DL (8.5-10.1) L Phosphorus Level 1.9 MG/DL (2.5-4.9) L Magnesium Level 2.4 MG/DL (1.8-2.4) General: well developed Neurologic Exam Objective somnolent, open eyes, non verbal, withdraws to pain Left hemiparesis Impression/Recommendations Diagnostic Impression Acute ischemic stroke bilateral hemispheres, anterior and posterior circulation high concern for embolic Tele cont asa daily statin daily Echo pending Carotid US no significant athero Natalio Whitfield MD Aug 23, 2020 19:03
[2020-08-23] MEDS: Dyna-Hex 2% Top Sol 2oz TOPIC SCH (21:02)
[2020-08-24] VITALS: BP 134/74
[2020-08-24 04:00] VITALS: BP 133/87
[2020-08-24 05:46] LABS: HEMATOCRIT 39.7 % (42.0-52.0); HEMOGLOBIN 13.6 G/DL (14.2-18.0); MEAN CORPUSCULAR VOLUME 97 FL (80-99); PLATELET COUNT 91 K/UL (150-450); WHITE BLOOD COUNT 5.7 K/UL (4.8-10.8)
[2020-08-24 06:15] LABS: ALANINE AMINOTRANSFERASE 94 U/L (12-78); ALBUMIN 2.6 G/DL (3.4-5.0); ALBUMIN/GLOBULIN RATIO 0.6 (1.0-2.7); ALKALINE PHOSPHATASE 151 U/L (46-116); ANION GAP 7 mmol/L (5-15); ASPARTATE AMINO TRANSFERASE 48 U/L (15-37); BILIRUBIN,TOTAL 2.1 MG/DL (0.2-1.0); BLOOD UREA NITROGEN 11 mg/dL (7-18); CALCIUM 7.6 MG/DL (8.5-10.1); CARBON DIOXIDE 24 MMOL/L (21-32); CHLORIDE 105 MMOL/L (98-107); CREATININE 1.1 MG/DL (0.55-1.30); PHOSPHORUS 1.8 MG/DL (2.5-4.9); POTASSIUM 3.4 MMOL/L (3.5-5.1); SODIUM 136 MMOL/L (136-145)
[2020-08-24 08:00] VITALS: BP 141/67
[2020-08-24] MEDS: Aspirin EC 81mg tab ORAL SCH (09:00)
[2020-08-24] MEDS: Tamsulosin 0.4mg cap ORAL SCH ×2 (09:00→17:46)
[2020-08-24] MEDS: Potassium Phosphate 15mm/250ml 250 ML IVPB SCH ×2 (09:53→16:38)
--- NOTE | 2020-08-24 11:33 | Pulmonology Progress Note ---
Subjective ROS Limited/Unobtainable: Yes Constitutional: Reports: no symptoms Allergies: Coded Allergies: No Known Allergies (Unverified , 07/22/20) All Systems: reviewed and negative except above Objective Last 24 Hour Vital Signs Date Time Temp Pulse Resp B/P (MAP) Pulse Ox O2 Delivery O2 Flow Rate FiO2 08/24/20 09:00 Room Air Room Air 08/24/20 09:00 73 141/67 08/24/20 08:00 71 08/24/20 08:00 98.0 73 22 141/67 (91) 98 08/24/20 04:07 76 08/24/20 04:00 99.3 76 20 133/87 (102) 97 08/24/20 00:27 94 08/24/20 00:00 99.1 89 24 134/74 (94) 94 08/23/20 21:00 Room Air Room Air 08/23/20 20:01 127/79 08/23/20 20:00 97.7 70 20 127/79 (95) 97 08/23/20 20:00 76 08/23/20 16:00 97.0 60 20 134/56 (82) 96 08/23/20 16:00 65 08/23/20 12:00 63 08/23/20 12:00 96.9 56 20 115/77 (90) 99 Intake and Output 08/23/20 08/24/20 19:00 07:00 Output Total 500 ml Balance -500 ml Output Urine Total 500 ml # Voids 2 General Appearance: no acute distress, other - elderly male, not verbally responsive HEENT: normocephalic, atraumatic Respiratory: chest wall non-tender, lungs clear, no respiratory distress Cardiovascular: normal rate - tele with SR 1 st degree AV block Abdomen: soft, non tender, non distended Extremities: no edema, pedal pulses normal Skin: no rash Neurologic: pharmacologist II-XII grossly normal, other - left hemiparesis, nonverbal, w/draws to tactile stimuli Laboratory Tests 08/24/20 04:30: White Blood Count 5.7, Red Blood Count 4.10L, Hemoglobin 13.6L, Hematocrit 39.7L , Mean Corpuscular Volume 97, Mean Corpuscular Hemoglobin 33.2H, Mean Corpuscular Hemoglobin Concent 34.2, Red Cell Distribution Width 12.0, Platelet Count 91L, Mean Platelet Volume 11.8H, Neutrophils (%) (Auto) , Lymphocytes (%) (Auto) , Monocytes (%) (Auto) , Eosinophils (%) (Auto) , Basophils (%) (Auto) , Differential Total Cells Counted 100, Neutrophils % (Manual) 53, Lymphocytes % (Manual) 15L, Monocytes % (Manual) 29H, Eosinophils % (Manual) 3, Basophils % (Manual) 0, Band Neutrophils 0, Platelet Estimate DecreasedL, Platelet Morphology Normal, Red Blood Cell Morphology Normal, Sodium Level 136, Potassium Level 3.4L, Chloride Level 105, Carbon Dioxide Level 24, Anion Gap 7, Blood Urea Nitrogen 11, Creatinine 1.1, Estimat Glomerular Filtration Rate > 60, Glucose Level 184H, Calcium Level 7.6L, Phosphorus Level 1.8L, Magnesium Level 2.2, Total Bilirubin 2.1H, Direct Bilirubin 1.0H, Aspartate Amino Transf (AST/SGOT) 48H, Alanine Aminotransferase (ALT/SGPT) 94H, Alkaline Phosphatase 151H, Total Protein 6.6, Albumin 2.6L, Globulin 4.0, Albumin/Globulin Ratio 0.6L Current Medications Medications (Trade) Dose Ordered Sig/Fabrizio Route PRN Reason Start Time Stop Time Status Last Admin Dose Admin Acetaminophen (Tylenol) 650 mg Q4H PRN ORAL fever 08/18/20 15:00 09/17/20 14:59 Amlodipine Besylate (Norvasc) 5 mg DAILY ORAL 08/19/20 09:00 09/18/20 08:59 08/23/20 08:52 Aspirin (Ecotrin) 81 mg DAILY ORAL 08/21/20 09:00 10/05/20 08:59 08/23/20 08:52 Chlorhexidine Gluconate (Jennifer-Hex 2%) 1 applic DAILY@2000 TOPIC 08/23/20 20:00 11/21/20 19:59 08/23/20 21:02 Dextrose 1,000 ml @ 60 mls/hr [id number] IV 08/18/20 17:15 09/17/20 17:14 08/24/20 04:22 Dextrose (Dextrose 50%) 25 ml Q30M PRN IV Hypoglycemia 08/18/20 15:00 11/16/20 14:59 Dextrose (Dextrose 50%) 50 ml Q30M PRN IV Hypoglycemia 08/18/20 15:00 11/16/20 14:59 Dopamine HCl/ Dextrose 250 ml @ 9.18 mls/hr Q24H IV 08/24/20 11:20 08/27/20 11:19 Haloperidol Lactate (Haldol) 5 mg Q6H PRN IM agitation 08/18/20 15:00 10/02/20 14:59 08/22/20 06:27 Ondansetron HCl (Zofran) 4 mg Q6H PRN IVP Nausea & Vomiting 08/18/20 15:00 09/17/20 14:59 Potassium Phosphate 250 ml @ 62.5 mls/hr Q4H IVPB 08/24/20 10:00 08/24/20 17:59 08/24/20 09:53 Potassium Chloride (K-Dur) 40 meq TWICE A DAY ORAL 08/20/20 18:30 11/18/20 18:29 08/23/20 08:52 Tamsulosin HCl (Flomax) 0.4 mg BID ORAL 08/18/20 18:00 09/18/20 08:59 08/23/20 08:52 Assessment/Plan Problems: (1) Sick sinus syndrome (2) Hypernatremia (3) Renal failure (ARF), acute on chronic (4) HTN (hypertension) (5) Failure to thrive in adult (6) BPH (benign prostatic hyperplasia) (7) Schizoaffective disorder Assessment/Plan doing better will need pacemaker soon. bubble study was negative renal function getting better MRI of brain reviewed., multiple small embolic infarcts Jaclyn Byrne MD Aug 24, 2020 11:33
[2020-08-24 12:00] VITALS: BP 129/60
[2020-08-24] MEDS: DOPamine 400mg/250ml 250 ML IV SCH (12:05)
--- NOTE | 2020-08-24 12:40 | Cardiac Electrophysiology PN ---
Assessment/Plan Assessment/Plan 1. Multiple small microembolic infarcts. Rule out paroxysmal atrial fibrillation or paradoxical embolus. Echocardiogram with bubble study pending also to make sure the patient does not have a PFO. Neurology evaluation is also in progress 2. SSS with multiple more than 4.2 second pauses including 5.2 second pause. Not on Dig, BB or Ca tay while awake at 5 pm Needs pacer. This is also suggestive of PAF as cause of his CVA. Got PICC line and is on Dopamine Will schedule for pacer when consent obtained either with 2 physician or ethics committee 3. Acute renal failure. Creatinine is improving with hydration. 4. Agitation and dementia. 5. History of lumbar vertebral compression fracture. 6. Hypernatremia. DW Dr. Rothman and Adolfo Subjective Subjective Had 4.2 second asystole while awake yesterday at around 5 pm on 08/23 and 5.2 second pause on 08/23 off on any AVN tay Objective Last 24 Hour Vital Signs Date Time Temp Pulse Resp B/P (MAP) Pulse Ox O2 Delivery O2 Flow Rate FiO2 08/24/20 12:05 129/60 08/24/20 12:00 97.7 74 21 129/60 (83) 95 08/24/20 09:00 Room Air Room Air 08/24/20 09:00 73 141/67 08/24/20 08:00 71 08/24/20 08:00 98.0 73 22 141/67 (91) 98 08/24/20 04:07 76 08/24/20 04:00 99.3 76 20 133/87 (102) 97 08/24/20 00:27 94 08/24/20 00:00 99.1 89 24 134/74 (94) 94 08/23/20 21:00 Room Air Room Air 08/23/20 20:01 127/79 08/23/20 20:00 97.7 70 20 127/79 (95) 97 08/23/20 20:00 76 08/23/20 16:00 97.0 60 20 134/56 (82) 96 08/23/20 16:00 65 Intake and Output 08/23/20 08/24/20 19:00 07:00 Output Total 500 ml Balance -500 ml Output Urine Total 500 ml # Voids 2 Laboratory Tests Test 08/24/20 04:30 White Blood Count 5.7 K/UL (4.8-10.8) Red Blood Count 4.10 M/UL (4.70-6.10) L Hemoglobin 13.6 G/DL (14.2-18.0) L Hematocrit 39.7 % (42.0-52.0) L Mean Corpuscular Volume 97 FL (80-99) Mean Corpuscular Hemoglobin 33.2 PG (27.0-31.0) H Mean Corpuscular Hemoglobin Concent 34.2 G/DL (32.0-36.0) Red Cell Distribution Width 12.0 % (11.6-14.8) Platelet Count 91 K/UL (150-450) L Mean Platelet Volume 11.8 FL (6.5-10.1) H Neutrophils (%) (Auto) % (45.0-75.0) Lymphocytes (%) (Auto) % (20.0-45.0) Monocytes (%) (Auto) % (1.0-10.0) Eosinophils (%) (Auto) % (0.0-3.0) Basophils (%) (Auto) % (0.0-2.0) Differential Total Cells Counted 100 Neutrophils % (Manual) 53 % (45-75) Lymphocytes % (Manual) 15 % (20-45) L Monocytes % (Manual) 29 % (1-10) H Eosinophils % (Manual) 3 % (0-3) Basophils % (Manual) 0 % (0-2) Band Neutrophils 0 % (0-8) Platelet Estimate Decreased L Platelet Morphology Normal Red Blood Cell Morphology Normal Sodium Level 136 MMOL/L (136-145) Potassium Level 3.4 MMOL/L (3.5-5.1) L Chloride Level 105 MMOL/L (98-107) Carbon Dioxide Level 24 MMOL/L (21-32) Anion Gap 7 mmol/L (5-15) Blood Urea Nitrogen 11 mg/dL (7-18) Creatinine 1.1 MG/DL (0.55-1.30) Estimat Glomerular Filtration Rate > 60 mL/min (>60) Glucose Level 184 MG/DL (74-106) H Calcium Level 7.6 MG/DL (8.5-10.1) L Phosphorus Level 1.8 MG/DL (2.5-4.9) L Magnesium Level 2.2 MG/DL (1.8-2.4) Total Bilirubin 2.1 MG/DL (0.2-1.0) H Direct Bilirubin 1.0 MG/DL (0.0-0.3) H Aspartate Amino Transf (AST/SGOT) 48 U/L (15-37) H Alanine Aminotransferase (ALT/SGPT) 94 U/L (12-78) H Alkaline Phosphatase 151 U/L (46-116) H Total Protein 6.6 G/DL (6.4-8.2) Albumin 2.6 G/DL (3.4-5.0) L Globulin 4.0 g/dL Albumin/Globulin Ratio 0.6 (1.0-2.7) L Objective HEAD AND NECK: No JVD. LUNGS: Coarse rhonchi. CARDIOVASCULAR: Regular S1 and S2 with no gallop. ABDOMEN: Soft. EXTREMITIES: No pitting edema. Carlos Eduardo Crespo MD Aug 24, 2020 12:40
--- NOTE | 2020-08-24 13:02 | Nephrology Progress Note ---
Assessment/Plan Problem List: (1) ANGI (acute kidney injury) (2) Renal failure (ARF), acute on chronic (3) Dehydration (4) UTI (urinary tract infection) (5) BPH (benign prostatic hyperplasia) (6) Agitation due to dementia Assessment Acute renal failure Dehydration, leading to free water deficit and hypernatremia History of hypertension BPH History of lumbar vertebral compression fracture History of hypertension History of depression agitation Plan August 24: Labs reviewed. Abnormal electrolyte addressed. Main issue is heart rate pauses. Patient requires pacemaker. Discussed with the industrial organization manager. Continue current management. August 23: Labs reviewed. Abnormal electrolytes addressed. Patient had a 4- second pause yesterday and another 5-second pause today. Discussed with Dr. Crespo. Patient due transfer to ICU. Pacemaker insertion is being entertained. August 22: Labs reviewed. Abnormal electrolytes addressed. Renal parameters improving. Continue per current management. August 21: Labs reviewed. Electrolytes improving. Abnormal electrolytes addressed. Continue per current management. Lipitor and allopurinol held due to abnormal liver function tests August 20: Labs reviewed. Serum sodium declining. Abnormal electrolytes addressed. Continue to hydrate and monitor renal parameters. 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 August 19: Patient periodically agitated and pulls the IV out. On D5W 100 cc an hour. Serum creatinine lowering. Will increase IV fluid to [address] evaluation pending. Labs and medications reviewed. August 18: IV hydration Urine studies and culture Monitor renal parameters Pain medication as needed Psych management as needed Per orders Subjective ROS Limited/Unobtainable: No Constitutional: Reports: malaise, weakness Objective Objective Last 24 Hour Vital Signs Date Time Temp Pulse Resp B/P (MAP) Pulse Ox O2 Delivery O2 Flow Rate FiO2 08/24/20 12:05 129/60 08/24/20 12:00 69 08/24/20 12:00 97.7 74 21 129/60 (83) 95 08/24/20 09:00 Room Air Room Air 08/24/20 09:00 73 141/67 08/24/20 08:00 71 08/24/20 08:00 98.0 73 22 141/67 (91) 98 08/24/20 04:07 76 08/24/20 04:00 99.3 76 20 133/87 (102) 97 08/24/20 00:27 94 08/24/20 00:00 99.1 89 24 134/74 (94) 94 08/23/20 21:00 Room Air Room Air 08/23/20 20:01 127/79 08/23/20 20:00 97.7 70 20 127/79 (95) 97 08/23/20 20:00 76 08/23/20 16:00 97.0 60 20 134/56 (82) 96 08/23/20 16:00 65 Intake and Output 08/23/20 08/24/20 19:00 07:00 Output Total 500 ml Balance -500 ml Output Urine Total 500 ml # Voids 2 Current Medications Medications (Trade) Dose Ordered Sig/Fabrizio Route PRN Reason Start Time Stop Time Status Last Admin Dose Admin Acetaminophen (Tylenol) 650 mg Q4H PRN ORAL fever 08/18/20 15:00 09/17/20 14:59 Amlodipine Besylate (Norvasc) 5 mg DAILY ORAL 08/19/20 09:00 09/18/20 08:59 08/23/20 08:52 Aspirin (Ecotrin) 81 mg DAILY ORAL 08/21/20 09:00 10/05/20 08:59 08/23/20 08:52 Chlorhexidine Gluconate (Jennifer-Hex 2%) 1 applic DAILY@2000 TOPIC 08/23/20 20:00 11/21/20 19:59 08/23/20 21:02 Dextrose 1,000 ml @ 60 mls/hr [id number] IV 08/18/20 17:15 09/17/20 17:14 08/24/20 04:22 Dextrose (Dextrose 50%) 25 ml Q30M PRN IV Hypoglycemia 08/18/20 15:00 11/16/20 14:59 Dextrose (Dextrose 50%) 50 ml Q30M PRN IV Hypoglycemia 08/18/20 15:00 11/16/20 14:59 Dopamine HCl/ Dextrose 250 ml @ 9.18 mls/hr Q24H IV 08/24/20 11:20 08/27/20 11:19 08/24/20 12:05 Haloperidol Lactate (Haldol) 5 mg Q6H PRN IM agitation 08/18/20 15:00 10/02/20 14:59 08/22/20 06:27 Ondansetron HCl (Zofran) 4 mg Q6H PRN IVP Nausea & Vomiting 08/18/20 15:00 09/17/20 14:59 Potassium Phosphate 250 ml @ 62.5 mls/hr Q4H IVPB 08/24/20 10:00 08/24/20 17:59 08/24/20 09:53 Potassium Chloride (K-Dur) 40 meq TWICE A DAY ORAL 08/20/20 18:30 11/18/20 18:29 08/23/20 08:52 Tamsulosin HCl (Flomax) 0.4 mg BID ORAL 08/18/20 18:00 09/18/20 08:59 08/23/20 08:52 Laboratory Tests 08/24/20 04:30: White Blood Count 5.7, Red Blood Count 4.10L, Hemoglobin 13.6L, Hematocrit 39.7L , Mean Corpuscular Volume 97, Mean Corpuscular Hemoglobin 33.2H, Mean Corpuscular Hemoglobin Concent 34.2, Red Cell Distribution Width 12.0, Platelet Count 91L, Mean Platelet Volume 11.8H, Neutrophils (%) (Auto) , Lymphocytes (%) (Auto) , Monocytes (%) (Auto) , Eosinophils (%) (Auto) , Basophils (%) (Auto) , Differential Total Cells Counted 100, Neutrophils % (Manual) 53, Lymphocytes % (Manual) 15L, Monocytes % (Manual) 29H, Eosinophils % (Manual) 3, Basophils % (Manual) 0, Band Neutrophils 0, Platelet Estimate DecreasedL, Platelet Morphology Normal, Red Blood Cell Morphology Normal, Sodium Level 136, Potassium Level 3.4L, Chloride Level 105, Carbon Dioxide Level 24, Anion Gap 7, Blood Urea Nitrogen 11, Creatinine 1.1, Estimat Glomerular Filtration Rate > 60, Glucose Level 184H, Calcium Level 7.6L, Phosphorus Level 1.8L, Magnesium Level 2.2, Total Bilirubin 2.1H, Direct Bilirubin 1.0H, Aspartate Amino Transf (AST/SGOT) 48H, Alanine Aminotransferase (ALT/SGPT) 94H, Alkaline Phosphatase 151H, Total Protein 6.6, Albumin 2.6L, Globulin 4.0, Albumin/Globulin Ratio 0.6L Height (Feet): 6 Height (Inches): 0.00 Weight (Pounds): 180 General Appearance: no apparent distress, lethargic Cardiovascular: normal rate Respiratory/Chest: decreased breath sounds Abdomen: distended Gelacio Mata MD Aug 24, 2020 13:02
[2020-08-24 16:00] VITALS: BP 130/71
--- NOTE | 2020-08-24 17:39 | Neurology Progress Note ---
Interim History Interim History ROS Limited/Unobtainable: No Interim History no new deficits on case monitor pending pacemaker Objective Physical Exam Last Vital Signs Date Time Temp Pulse Resp B/P (MAP) Pulse Ox O2 Delivery O2 Flow Rate FiO2 08/24/20 16:00 80 08/24/20 16:00 97.9 22 130/71 (90) 95 08/24/20 09:00 Room Air Room Air 08/18/20 21:00 2.0 Laboratory Tests Test 08/24/20 04:30 White Blood Count 5.7 K/UL (4.8-10.8) Red Blood Count 4.10 M/UL (4.70-6.10) L Hemoglobin 13.6 G/DL (14.2-18.0) L Hematocrit 39.7 % (42.0-52.0) L Mean Corpuscular Volume 97 FL (80-99) Mean Corpuscular Hemoglobin 33.2 PG (27.0-31.0) H Mean Corpuscular Hemoglobin Concent 34.2 G/DL (32.0-36.0) Red Cell Distribution Width 12.0 % (11.6-14.8) Platelet Count 91 K/UL (150-450) L Mean Platelet Volume 11.8 FL (6.5-10.1) H Neutrophils (%) (Auto) % (45.0-75.0) Lymphocytes (%) (Auto) % (20.0-45.0) Monocytes (%) (Auto) % (1.0-10.0) Eosinophils (%) (Auto) % (0.0-3.0) Basophils (%) (Auto) % (0.0-2.0) Differential Total Cells Counted 100 Neutrophils % (Manual) 53 % (45-75) Lymphocytes % (Manual) 15 % (20-45) L Monocytes % (Manual) 29 % (1-10) H Eosinophils % (Manual) 3 % (0-3) Basophils % (Manual) 0 % (0-2) Band Neutrophils 0 % (0-8) Platelet Estimate Decreased L Platelet Morphology Normal Red Blood Cell Morphology Normal Sodium Level 136 MMOL/L (136-145) Potassium Level 3.4 MMOL/L (3.5-5.1) L Chloride Level 105 MMOL/L (98-107) Carbon Dioxide Level 24 MMOL/L (21-32) Anion Gap 7 mmol/L (5-15) Blood Urea Nitrogen 11 mg/dL (7-18) Creatinine 1.1 MG/DL (0.55-1.30) Estimat Glomerular Filtration Rate > 60 mL/min (>60) Glucose Level 184 MG/DL (74-106) H Calcium Level 7.6 MG/DL (8.5-10.1) L Phosphorus Level 1.8 MG/DL (2.5-4.9) L Magnesium Level 2.2 MG/DL (1.8-2.4) Total Bilirubin 2.1 MG/DL (0.2-1.0) H Direct Bilirubin 1.0 MG/DL (0.0-0.3) H Aspartate Amino Transf (AST/SGOT) 48 U/L (15-37) H Alanine Aminotransferase (ALT/SGPT) 94 U/L (12-78) H Alkaline Phosphatase 151 U/L (46-116) H Total Protein 6.6 G/DL (6.4-8.2) Albumin 2.6 G/DL (3.4-5.0) L Globulin 4.0 g/dL Albumin/Globulin Ratio 0.6 (1.0-2.7) L General: well developed Neurologic Exam Objective somnolent, open eyes, non verbal, withdraws to pain Left hemiparesis Impression/Recommendations Problems: (1) Hypernatremia (2) Embolic cerebral infarction (3) Sick sinus syndrome (4) Compression fracture of L3 vertebra (5) Intractable pain (6) Social isolation (7) Impaired mobility and ADLs (8) UTI (urinary tract infection) (9) Suicidal ideations (10) HTN (hypertension) (11) Dehydration (12) Failure to thrive in adult (13) Renal failure (ARF), acute on chronic (14) ANGI (acute kidney injury) (15) BPH (benign prostatic hyperplasia) (16) Agitation due to dementia (17) Schizoaffective disorder Diagnostic Impression Acute ischemic stroke bilateral hemispheres, anterior and posterior circulation high concern for embolic Tele cont asa daily statin daily Carotid US no significant athero Natalio Whitfield MD Aug 24, 2020 17:39
--- NOTE | 2020-08-24 17:51 | Internal Med Progress Note ---
Subjective Date of Service: Aug 24, 2020 Physician Name MeshaShai Attending Physician Andrés Rothman MD Current Medications Medications (Trade) Dose Ordered Sig/Fabrizio Route PRN Reason Start Time Stop Time Status Last Admin Dose Admin Acetaminophen (Tylenol) 650 mg Q4H PRN ORAL fever 08/18/20 15:00 09/17/20 14:59 Amlodipine Besylate (Norvasc) 5 mg DAILY ORAL 08/19/20 09:00 09/18/20 08:59 08/23/20 08:52 Aspirin (Ecotrin) 81 mg DAILY ORAL 08/21/20 09:00 10/05/20 08:59 08/23/20 08:52 Chlorhexidine Gluconate (Jennifer-Hex 2%) 1 applic DAILY@2000 TOPIC 08/23/20 20:00 11/21/20 19:59 08/23/20 21:02 Dextrose 1,000 ml @ 60 mls/hr [id number] IV 08/18/20 17:15 09/17/20 17:14 08/24/20 04:22 Dextrose (Dextrose 50%) 25 ml Q30M PRN IV Hypoglycemia 08/18/20 15:00 11/16/20 14:59 Dextrose (Dextrose 50%) 50 ml Q30M PRN IV Hypoglycemia 08/18/20 15:00 11/16/20 14:59 Dopamine HCl/ Dextrose 250 ml @ 9.18 mls/hr Q24H IV 08/24/20 11:20 08/27/20 11:19 08/24/20 12:05 Haloperidol Lactate (Haldol) 5 mg Q6H PRN IM agitation 08/18/20 15:00 10/02/20 14:59 08/22/20 06:27 Ondansetron HCl (Zofran) 4 mg Q6H PRN IVP Nausea & Vomiting 08/18/20 15:00 09/17/20 14:59 Potassium Phosphate 250 ml @ 62.5 mls/hr Q4H IVPB 08/24/20 10:00 08/24/20 17:59 08/24/20 16:38 Potassium Chloride (K-Dur) 40 meq TWICE A DAY ORAL 08/20/20 18:30 11/18/20 18:29 08/23/20 08:52 Tamsulosin HCl (Flomax) 0.4 mg BID ORAL 08/18/20 18:00 09/18/20 08:59 08/23/20 08:52 Allergies: Coded Allergies: No Known Allergies (Unverified , 07/22/20) ROS Limited/Unobtainable: Yes Subjective 75 YO M admitted with acute renal failure. Now multiple microembolic brain infarcts. Cover for Int med-DR Rothman. Step Down. Frequent periods of asystole lasting 4-5 sec. On dopamine Objective Last Vital Signs Date Time Temp Pulse Resp B/P (MAP) Pulse Ox O2 Delivery O2 Flow Rate FiO2 08/24/20 16:00 80 08/24/20 16:00 97.9 22 130/71 (90) 95 08/24/20 09:00 Room Air Room Air 08/18/20 21:00 2.0 Laboratory Tests Test 08/24/20 04:30 White Blood Count 5.7 K/UL (4.8-10.8) Red Blood Count 4.10 M/UL (4.70-6.10) L Hemoglobin 13.6 G/DL (14.2-18.0) L Hematocrit 39.7 % (42.0-52.0) L Mean Corpuscular Volume 97 FL (80-99) Mean Corpuscular Hemoglobin 33.2 PG (27.0-31.0) H Mean Corpuscular Hemoglobin Concent 34.2 G/DL (32.0-36.0) Red Cell Distribution Width 12.0 % (11.6-14.8) Platelet Count 91 K/UL (150-450) L Mean Platelet Volume 11.8 FL (6.5-10.1) H Neutrophils (%) (Auto) % (45.0-75.0) Lymphocytes (%) (Auto) % (20.0-45.0) Monocytes (%) (Auto) % (1.0-10.0) Eosinophils (%) (Auto) % (0.0-3.0) Basophils (%) (Auto) % (0.0-2.0) Differential Total Cells Counted 100 Neutrophils % (Manual) 53 % (45-75) Lymphocytes % (Manual) 15 % (20-45) L Monocytes % (Manual) 29 % (1-10) H Eosinophils % (Manual) 3 % (0-3) Basophils % (Manual) 0 % (0-2) Band Neutrophils 0 % (0-8) Platelet Estimate Decreased L Platelet Morphology Normal Red Blood Cell Morphology Normal Sodium Level 136 MMOL/L (136-145) Potassium Level 3.4 MMOL/L (3.5-5.1) L Chloride Level 105 MMOL/L (98-107) Carbon Dioxide Level 24 MMOL/L (21-32) Anion Gap 7 mmol/L (5-15) Blood Urea Nitrogen 11 mg/dL (7-18) Creatinine 1.1 MG/DL (0.55-1.30) Estimat Glomerular Filtration Rate > 60 mL/min (>60) Glucose Level 184 MG/DL (74-106) H Calcium Level 7.6 MG/DL (8.5-10.1) L Phosphorus Level 1.8 MG/DL (2.5-4.9) L Magnesium Level 2.2 MG/DL (1.8-2.4) Total Bilirubin 2.1 MG/DL (0.2-1.0) H Direct Bilirubin 1.0 MG/DL (0.0-0.3) H Aspartate Amino Transf (AST/SGOT) 48 U/L (15-37) H Alanine Aminotransferase (ALT/SGPT) 94 U/L (12-78) H Alkaline Phosphatase 151 U/L (46-116) H Total Protein 6.6 G/DL (6.4-8.2) Albumin 2.6 G/DL (3.4-5.0) L Globulin 4.0 g/dL Albumin/Globulin Ratio 0.6 (1.0-2.7) L Intake and Output0 08/23/20 08/24/20 19:00 07:00 Output Total 500 ml Balance -500 ml Output Urine Total 500 ml # Voids 2 Objective Objective General: No acute distress, awake and responsive, confused. HEENT: NCAT, sclera anicteric, PERRL, EOMI. Neck: Supple, no significant jugular venous distention, Lungs: Good inspiratory effort,clear to auscultation bilaterally, no Wheeze or Rales. Heart: Regular rate and rhythm, normal S1/S2, no murmur. Abdomen: soft, nontender, nondistended. Normoactive bowel sounds, obesity. / Rectal: Refused and deferred. Extremities: No Cyanosis , clubbing or edema. Neuro: A&O x 1, Able to move all extremities Skin: warm, no rashes or lesions Assessment/Plan Assessment/Plan Assessment/Plan Assessment/Plan Assessment/Plan ASSESSMENT: 1. Acute kidney injury on chronic renal insufficiency. 2. Dehydration. 3. Abnormal liver function. 4. History of schizophrenia disorder. 5. BPH. 6. Failure to thrive in adult. 7. Hypertension. 8. Impaired mobility. 9. History of compression fracture of the thoracic as well as lumbar spine due to the old trauma. 10. Depression. 11. Possible urinary tract infection. 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 Sick sinus syndrome with frequent episodes of asystole 15. probable paroxysmal atrial fibrillation PLAN: Telemetry status Monitor laboratory. IV hydration. Code status: Full Code. DVT prophylaxis: heparin subcutaneous. Dr. Gelacio Mata from Nephrology Dr. Byrne from Pulmonary Critical Care. failed bedside swallow study Neuro=Dr Whitfield Await Bubble Echocardiogram cardiology=Dr Crespo will require pacemaker per cardiology Abdominal US: 1. Sludge within the distended gallbladder but no acute cholecystitis. 2. Left renal cyst. 3. Hepatic steatosis. 4. Nonspecific splenomegaly. MRI Brain: MULTIPLE SMALL FOCI OF RESTRICTED DIFFUSION IN THE POSTERIOR RIGHT TEMPORAL, RIGHT OCCIPITAL LOBES AND RIGHT THALAMUS. ALSO A SMALL PUNCTATE FOCUS OF RESTRICTED DIFFUSION IN THE LEFT OCCIPITAL LOBE. FINDINGS SUGGEST MULTIPLE SMALL MICROEMBOLIC INFARCTS. NO HEMORRHAGE, MASS EFFECT OR SHIFT. Shai Zimmer MD Aug 24, 2020 17:51
[2020-08-24 20:00] VITALS: BP 139/82
[2020-08-24] MEDS: Dyna-Hex 2% Top Sol 2oz TOPIC SCH (20:50)
[2020-08-25] VITALS: BP 133/77
[2020-08-25 04:00] VITALS: BP 137/67
[2020-08-25 04:46] LABS: HEMATOCRIT 38.6 % (42.0-52.0); HEMOGLOBIN 13.2 G/DL (14.2-18.0); MEAN CORPUSCULAR VOLUME 97 FL (80-99); PLATELET COUNT 99 K/UL (150-450); RED BLOOD COUNT 3.99 M/UL (4.70-6.10); RED CELL DISTRIBUTION WIDTH 12.5 % (11.6-14.8); WHITE BLOOD COUNT 5.2 K/UL (4.8-10.8)
[2020-08-25 05:19] LABS: ANION GAP 7 mmol/L (5-15); BLOOD UREA NITROGEN 8 mg/dL (7-18); CALCIUM 7.9 MG/DL (8.5-10.1); CARBON DIOXIDE 25 MMOL/L (21-32); CHLORIDE 105 MMOL/L (98-107); CREATININE 1.1 MG/DL (0.55-1.30); POTASSIUM 3.5 MMOL/L (3.5-5.1); SODIUM 137 MMOL/L (136-145)
[2020-08-25 08:00] VITALS: BP 135/78
[2020-08-25] MEDS: Tamsulosin 0.4mg cap ORAL SCH ×2 (08:23→16:59)
[2020-08-25] MEDS: Aspirin EC 81mg tab ORAL SCH (08:23)
--- NOTE | 2020-08-25 09:01 | Neurology Progress Note ---
Interim History Interim History ROS Limited/Unobtainable: Yes Interim History remains somnolent and confused no new deficits on exam Objective Physical Exam Last Vital Signs Date Time Temp Pulse Resp B/P (MAP) Pulse Ox O2 Delivery O2 Flow Rate FiO2 08/25/20 08:00 97.7 73 20 135/78 (97) 98 08/24/20 21:00 Room Air Room Air 08/18/20 21:00 2.0 Laboratory Tests Test 08/25/20 03:45 White Blood Count 5.2 K/UL (4.8-10.8) Red Blood Count 3.99 M/UL (4.70-6.10) L Hemoglobin 13.2 G/DL (14.2-18.0) L Hematocrit 38.6 % (42.0-52.0) L Mean Corpuscular Volume 97 FL (80-99) Mean Corpuscular Hemoglobin 33.0 PG (27.0-31.0) H Mean Corpuscular Hemoglobin Concent 34.1 G/DL (32.0-36.0) Red Cell Distribution Width 12.5 % (11.6-14.8) Platelet Count 99 K/UL (150-450) L Mean Platelet Volume 9.1 FL (6.5-10.1) Neutrophils (%) (Auto) % (45.0-75.0) Lymphocytes (%) (Auto) % (20.0-45.0) Monocytes (%) (Auto) % (1.0-10.0) Eosinophils (%) (Auto) % (0.0-3.0) Basophils (%) (Auto) % (0.0-2.0) Neutrophils % (Manual) Pending Lymphocytes % (Manual) Pending Platelet Estimate Pending Platelet Morphology Pending Sodium Level 137 MMOL/L (136-145) Potassium Level 3.5 MMOL/L (3.5-5.1) Chloride Level 105 MMOL/L (98-107) Carbon Dioxide Level 25 MMOL/L (21-32) Anion Gap 7 mmol/L (5-15) Blood Urea Nitrogen 8 mg/dL (7-18) Creatinine 1.1 MG/DL (0.55-1.30) Estimat Glomerular Filtration Rate > 60 mL/min (>60) Glucose Level 100 MG/DL (74-106) Calcium Level 7.9 MG/DL (8.5-10.1) L General: well developed Neurologic Exam Objective somnolent, open eyes, non verbal, withdraws to pain Left hemiparesis Impression/Recommendations Problems: (1) Hypernatremia (2) Embolic cerebral infarction (3) Sick sinus syndrome (4) Compression fracture of L3 vertebra (5) Intractable pain (6) Social isolation (7) Impaired mobility and ADLs (8) UTI (urinary tract infection) (9) Suicidal ideations (10) HTN (hypertension) (11) Dehydration (12) Failure to thrive in adult (13) Renal failure (ARF), acute on chronic (14) ANGI (acute kidney injury) (15) BPH (benign prostatic hyperplasia) (16) Agitation due to dementia (17) Schizoaffective disorder Diagnostic Impression Acute ischemic stroke bilateral hemispheres, anterior and posterior circulation high concern for embolic Tele cont asa daily statin daily Carotid US no significant athero Natalio Whitfield MD Aug 25, 2020 09:01
--- NOTE | 2020-08-25 09:15 | Cardiology Report ---
APPROVED REPORT EXAM: Two-dimensional and M-mode echocardiogram with Doppler and color Doppler. INDICATION CVA/TIA M-Mode DIMENSIONS IVSd0.7 (0.7-1.1cm)Left Atrium (MM)3.9 (1.6-4.0cm) LVDd5.3 (3.5-5.6cm)Aortic Root3.2 (2.0-3.7cm) PWd0.7 (0.7-1.1cm)Aortic Cusp Exc.2.2 (1.5-2.0cm) IVSs1.6 cm LVDs2.7 (2.5-4.0cm) PWs1.4 cm <Conclusion> Normal left ventricular chamber size, systolic function and wall motion. Left ventricular ejection fraction estimated to be 65 %. Anterior Echo-free space, may be due to pericardial fat. All other cardiac chamber sizes are within normal limits. Focal aortic valve sclerosis with adequate cusp excursion. Thickened mitral valve leaflets with normal excursion. Moderate mitral annulus and aortic root calcification. Pulmonic valve not well visualized. Normal tricuspid valve structure. IVC at normal size with physiologic collapse. A color flow and spectral Doppler study was performed and revealed: No aortic regurgitation. Trace mitral regurgitation. Mitral inflow velocities indicates possible pseudo normalization pattern implying moderately elevated left atrial pressure (Grade II). Trace to mild tricuspid regurgitation. Tricuspid systolic velocities suggests peak right ventricular systolic pressure of 11 mmHg. Negative Bubble study: with 10 cc of agitated saline injected intravenously, there is no communication across IAS and IVS C/W no indication of ASD/PFO or VSD. Bubble study was supervised by Dr. Carlos Eduardo Burns.
[2020-08-25 10:07] LABS: ALANINE AMINOTRANSFERASE 76 U/L (12-78); ALBUMIN 2.5 G/DL (3.4-5.0); ALKALINE PHOSPHATASE 145 U/L (46-116); ASPARTATE AMINO TRANSFERASE 42 U/L (15-37); BILIRUBIN,DIRECT 0.7 MG/DL (0.0-0.3); BILIRUBIN,TOTAL 1.4 MG/DL (0.2-1.0); PHOSPHORUS 2.6 MG/DL (2.5-4.9)
[2020-08-25 10:49] LABS: INR 1.1 (0.9-1.1)
--- NOTE | 2020-08-25 11:13 | Pulmonology Progress Note ---
Subjective ROS Limited/Unobtainable: Yes Constitutional: Reports: no symptoms HEENT: Repors: no symptoms Allergies: Coded Allergies: No Known Allergies (Unverified , 07/22/20) All Systems: reviewed and negative except above Objective Last 24 Hour Vital Signs Date Time Temp Pulse Resp B/P (MAP) Pulse Ox O2 Delivery O2 Flow Rate FiO2 08/25/20 09:07 148 08/25/20 09:02 Room Air Room Air 08/25/20 08:00 97.7 73 20 135/78 (97) 98 08/25/20 07:50 72 08/25/20 07:40 37 08/25/20 04:00 72 08/25/20 04:00 97.3 69 20 137/67 (90) 98 08/25/20 00:00 67 08/25/20 00:00 69 08/25/20 00:00 97.3 74 20 133/77 (95) 97 08/24/20 21:00 Room Air Room Air 08/24/20 20:00 77 08/24/20 20:00 97.9 77 20 139/82 (101) 96 08/24/20 19:00 139/82 08/24/20 16:00 80 08/24/20 16:00 97.9 68 22 130/71 (90) 95 08/24/20 12:05 129/60 08/24/20 12:00 69 08/24/20 12:00 97.7 74 21 129/60 (83) 95 Intake and Output 08/24/20 08/25/20 19:00 07:00 Intake Total 9.18 ml 700.98 ml Output Total 450 ml Balance 9.18 ml 250.98 ml Intake IV Total 9.18 ml 700.98 ml Output Urine Total 450 ml General Appearance: no acute distress, other - elderly male, not verbally responsive HEENT: normocephalic, atraumatic Respiratory: chest wall non-tender, lungs clear, no respiratory distress Cardiovascular: normal rate - tele with SR 1 st degree AV block Abdomen: soft, non tender, non distended Extremities: no edema, pedal pulses normal Skin: no rash 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: 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, other - left hemiparesis, nonverbal, w/draws to tactile stimuli Laboratory Tests 08/25/20 03:45: White Blood Count 5.2, Red Blood Count 3.99L, Hemoglobin 13.2L, Hematocrit 38.6L , Mean Corpuscular Volume 97, Mean Corpuscular Hemoglobin 33.0H, Mean Corpuscular Hemoglobin Concent 34.1, Red Cell Distribution Width 12.5, Platelet Count 99L, Mean Platelet Volume 9.1, Neutrophils (%) (Auto) , Lymphocytes (%) (Auto) , Monocytes (%) (Auto) , Eosinophils (%) (Auto) , Basophils (%) (Auto) , Differential Total Cells Counted 100, Neutrophils % (Manual) 43L, Lymphocytes % (Manual) 22, Monocytes % (Manual) 30H, Eosinophils % (Manual) 5H, Basophils % (Manual) 0, Band Neutrophils 0, Platelet Estimate DecreasedL, Platelet Morphology Normal, Red Blood Cell Morphology Normal, Sodium Level 137, Potassium Level 3.5, Chloride Level 105, Carbon Dioxide Level 25, Anion Gap 7, Blood Urea Nitrogen 8, Creatinine 1.1, Estimat Glomerular Filtration Rate > 60, Glucose Level 100, Uric Acid 5.0, Calcium Level 7.9L, Phosphorus Level 2.6, Magnesium Level 2.2, Total Bilirubin 1.4H, Direct Bilirubin 0.7H, Aspartate Amino Transf (AST/SGOT) 42H, Alanine Aminotransferase (ALT/SGPT) 76, Alkaline Phosphatase 145H, Total Protein 6.6, Albumin 2.5L 08/25/20 10:10: Prothrombin Time 12.2H, Prothromb Time International Ratio 1.1 Current Medications Medications (Trade) Dose Ordered Sig/Fabrizio Route PRN Reason Start Time Stop Time Status Last Admin Dose Admin Acetaminophen (Tylenol) 650 mg Q4H PRN ORAL fever 08/18/20 15:00 09/17/20 14:59 Amlodipine Besylate (Norvasc) 5 mg DAILY ORAL 08/19/20 09:00 09/18/20 08:59 08/23/20 08:52 Aspirin (Ecotrin) 81 mg DAILY ORAL 08/21/20 09:00 10/05/20 08:59 08/23/20 08:52 Chlorhexidine Gluconate (Jennifer-Hex 2%) 1 applic DAILY@2000 TOPIC 08/23/20 20:00 11/21/20 19:59 08/24/20 20:50 Dextrose 1,000 ml @ 60 mls/hr [id number] IV 08/18/20 17:15 09/17/20 17:14 08/24/20 20:52 Dextrose (Dextrose 50%) 25 ml Q30M PRN IV Hypoglycemia 08/18/20 15:00 11/16/20 14:59 Dextrose (Dextrose 50%) 50 ml Q30M PRN IV Hypoglycemia 08/18/20 15:00 11/16/20 14:59 Dopamine HCl/ Dextrose 250 ml @ 9.18 mls/hr Q24H IV 08/24/20 11:20 08/27/20 11:19 08/24/20 12:05 Haloperidol Lactate (Haldol) 5 mg Q6H PRN IM agitation 08/18/20 15:00 10/02/20 14:59 08/22/20 06:27 Ondansetron HCl (Zofran) 4 mg Q6H PRN IVP Nausea & Vomiting 08/18/20 15:00 09/17/20 14:59 Potassium Chloride (K-Dur) 40 meq TWICE A DAY ORAL 08/20/20 18:30 11/18/20 18:29 08/23/20 08:52 Tamsulosin HCl (Flomax) 0.4 mg BID ORAL 08/18/20 18:00 09/18/20 08:59 08/23/20 08:52 Assessment/Plan Problems: (1) Sick sinus syndrome (2) Hypernatremia (3) Renal failure (ARF), acute on chronic (4) HTN (hypertension) (5) Failure to thrive in adult (6) BPH (benign prostatic hyperplasia) (7) Schizoaffective disorder Assessment/Plan all reviewed check electrolytes daily f/u renal recommendations doing better will need pacemaker soon. bubble study was negative renal function getting better MRI of brain reviewed., multiple small embolic infarcts Jaclyn Byrne MD Aug 25, 2020 11:13
[2020-08-25] MEDS: DOPamine 400mg/250ml 250 ML IV SCH (11:30)
[2020-08-25 12:00] VITALS: BP 142/77
--- NOTE | 2020-08-25 12:07 | Internal Med Progress Note ---
Subjective Date of Service: Aug 25, 2020 Physician Name Shai Zimmer Attending Physician Andrés Rothman MD Current Medications Medications (Trade) Dose Ordered Sig/Fabrizio Route PRN Reason Start Time Stop Time Status Last Admin Dose Admin Acetaminophen (Tylenol) 650 mg Q4H PRN ORAL fever 08/18/20 15:00 09/17/20 14:59 Amlodipine Besylate (Norvasc) 5 mg DAILY ORAL 08/19/20 09:00 09/18/20 08:59 08/23/20 08:52 Aspirin (Ecotrin) 81 mg DAILY ORAL 08/21/20 09:00 10/05/20 08:59 08/23/20 08:52 Chlorhexidine Gluconate (Jennifer-Hex 2%) 1 applic DAILY@2000 TOPIC 08/23/20 20:00 11/21/20 19:59 08/24/20 20:50 Dextrose 1,000 ml @ 60 mls/hr [id number] IV 08/18/20 17:15 09/17/20 17:14 08/24/20 20:52 Dextrose (Dextrose 50%) 25 ml Q30M PRN IV Hypoglycemia 08/18/20 15:00 11/16/20 14:59 Dextrose (Dextrose 50%) 50 ml Q30M PRN IV Hypoglycemia 08/18/20 15:00 11/16/20 14:59 Dopamine HCl/ Dextrose 250 ml @ 9.18 mls/hr Q24H IV 08/24/20 11:20 08/27/20 11:19 08/25/20 11:30 Haloperidol Lactate (Haldol) 5 mg Q6H PRN IM agitation 08/18/20 15:00 10/02/20 14:59 08/22/20 06:27 Ondansetron HCl (Zofran) 4 mg Q6H PRN IVP Nausea & Vomiting 08/18/20 15:00 09/17/20 14:59 Potassium Chloride (K-Dur) 40 meq TWICE A DAY ORAL 08/20/20 18:30 11/18/20 18:29 08/23/20 08:52 Tamsulosin HCl (Flomax) 0.4 mg BID ORAL 08/18/20 18:00 09/18/20 08:59 08/23/20 08:52 Allergies: Coded Allergies: No Known Allergies (Unverified , 07/22/20) ROS Limited/Unobtainable: Yes Subjective 75 YO M admitted with acute renal failure. Now multiple microembolic brain infarcts. Cover for Int med-DR Rothman. Step Down. Frequent periods of asystole lasting 4-5 sec. On dopamine Objective Last Vital Signs Date Time Temp Pulse Resp B/P (MAP) Pulse Ox O2 Delivery O2 Flow Rate FiO2 08/25/20 11:30 142/77 08/25/20 09:07 148 08/25/20 09:02 Room Air Room Air 08/25/20 08:00 97.7 20 98 08/18/20 21:00 2.0 Laboratory Tests Test 08/25/20 03:45 08/25/20 10:10 White Blood Count 5.2 K/UL (4.8-10.8) Red Blood Count 3.99 M/UL (4.70-6.10) L Hemoglobin 13.2 G/DL (14.2-18.0) L Hematocrit 38.6 % (42.0-52.0) L Mean Corpuscular Volume 97 FL (80-99) Mean Corpuscular Hemoglobin 33.0 PG (27.0-31.0) H Mean Corpuscular Hemoglobin Concent 34.1 G/DL (32.0-36.0) Red Cell Distribution Width 12.5 % (11.6-14.8) Platelet Count 99 K/UL (150-450) L Mean Platelet Volume 9.1 FL (6.5-10.1) Neutrophils (%) (Auto) % (45.0-75.0) Lymphocytes (%) (Auto) % (20.0-45.0) Monocytes (%) (Auto) % (1.0-10.0) Eosinophils (%) (Auto) % (0.0-3.0) Basophils (%) (Auto) % (0.0-2.0) Differential Total Cells Counted 100 Neutrophils % (Manual) 43 % (45-75) L Lymphocytes % (Manual) 22 % (20-45) Monocytes % (Manual) 30 % (1-10) H Eosinophils % (Manual) 5 % (0-3) H Basophils % (Manual) 0 % (0-2) Band Neutrophils 0 % (0-8) Platelet Estimate Decreased L Platelet Morphology Normal Red Blood Cell Morphology Normal Sodium Level 137 MMOL/L (136-145) Potassium Level 3.5 MMOL/L (3.5-5.1) Chloride Level 105 MMOL/L (98-107) Carbon Dioxide Level 25 MMOL/L (21-32) Anion Gap 7 mmol/L (5-15) Blood Urea Nitrogen 8 mg/dL (7-18) Creatinine 1.1 MG/DL (0.55-1.30) Estimat Glomerular Filtration Rate > 60 mL/min (>60) Glucose Level 100 MG/DL (74-106) Uric Acid 5.0 MG/DL (2.6-7.2) Calcium Level 7.9 MG/DL (8.5-10.1) L Phosphorus Level 2.6 MG/DL (2.5-4.9) Magnesium Level 2.2 MG/DL (1.8-2.4) Total Bilirubin 1.4 MG/DL (0.2-1.0) H Direct Bilirubin 0.7 MG/DL (0.0-0.3) H Aspartate Amino Transf (AST/SGOT) 42 U/L (15-37) H Alanine Aminotransferase (ALT/SGPT) 76 U/L (12-78) Alkaline Phosphatase 145 U/L (46-116) H Total Protein 6.6 G/DL (6.4-8.2) Albumin 2.5 G/DL (3.4-5.0) L Prothrombin Time 12.2 SEC (9.30-11.50) H Prothromb Time International Ratio 1.1 (0.9-1.1) Intake and Output 08/24/20 08/25/20 19:00 07:00 Intake Total 9.18 ml 700.98 ml Output Total 450 ml Balance 9.18 ml 250.98 ml Intake IV Total 9.18 ml 700.98 ml Output Urine Total 450 ml Objective Objective General: No acute distress, awake and responsive, confused. HEENT: NCAT, sclera anicteric, PERRL, EOMI. Neck: Supple, no significant jugular venous distention, Lungs: Good inspiratory effort,clear to auscultation bilaterally, no Wheeze or Rales. Heart: Regular rate and rhythm, normal S1/S2, no murmur. Abdomen: soft, nontender, nondistended. Normoactive bowel sounds, obesity. / Rectal: Refused and deferred. Extremities: No Cyanosis , clubbing or edema. Neuro: A&O x 1, Able to move all extremities Skin: warm, no rashes or lesions Assessment/Plan Assessment/Plan Assessment/Plan Assessment/Plan Assessment/Plan ASSESSMENT: 1. Acute kidney injury on chronic renal insufficiency. 2. Dehydration. 3. Abnormal liver function. 4. History of schizophrenia disorder. 5. BPH. 6. Failure to thrive in adult. 7. Hypertension. 8. Impaired mobility. 9. History of compression fracture of the thoracic as well as lumbar spine due to the old trauma. 10. Depression. 11. Possible urinary tract infection. 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 Sick sinus syndrome with frequent episodes of asystole 15. probable paroxysmal atrial fibrillation PLAN: Telemetry status Monitor laboratory. IV hydration. Code status: Full Code. DVT prophylaxis: heparin subcutaneous. Dr. Gelacio Mata from Nephrology Dr. Byrne from Pulmonary Critical Care. failed bedside swallow study Neuro=Dr Whitfield Await Bubble Echocardiogram cardiology=Dr Crespo will require pacemaker per cardiology-soc work/bioethics to gain consent Pacemaker is medically necessary due to periods of asystole; 2 physician consent if no family members are located for consent Abdominal US: 1. Sludge within the distended gallbladder but no acute cholecystitis. 2. Left renal cyst. 3. Hepatic steatosis. 4. Nonspecific splenomegaly. MRI Brain: MULTIPLE SMALL FOCI OF RESTRICTED DIFFUSION IN THE POSTERIOR RIGHT TEMPORAL, RIGHT OCCIPITAL LOBES AND RIGHT THALAMUS. ALSO A SMALL PUNCTATE FOCUS OF RESTRICTED DIFFUSION IN THE LEFT OCCIPITAL LOBE. FINDINGS SUGGEST MULTIPLE SMALL MICROEMBOLIC INFARCTS. NO HEMORRHAGE, MASS EFFECT OR SHIFT. Shai Zimmer MD Aug 25, 2020 12:07
--- NOTE | 2020-08-25 13:22 | Cardiac Electrophysiology PN ---
Assessment/Plan Assessment/Plan 1. Multiple small microembolic infarcts. Rule out paroxysmal atrial fibrillation or paradoxical embolus. Echocardiogram with bubble study showed no PFO. Neurology FU in progress 2. SSS with multiple more than 4.2 second pauses including 5.2 second pause. Not on Dig, BB or Ca tay while awake at 5 pm Needs pacer. This is also suggestive of PAF as cause of his CVA. Got PICC line and is on Dopamine 3 mcg Will schedule for pacer now that we have 2 physician consent and ethics committee and friends consent 3. Acute renal failure. Creatinine is improving with hydration. 4. Agitation and dementia. 5. History of lumbar vertebral compression fracture. 6. Hypernatremia. DW Dr. Rothman, case management and Dr. Mata Subjective Subjective Had 4.2 second asystole while awake on 08/22 at around 5 pm on 08/23 and 5.2 second pause on 08/23 off on any AVN tay Now on Dopamine drip at 3 Mcg and still had 2.6 second pause. Objective Last 24 Hour Vital Signs Date Time Temp Pulse Resp B/P (MAP) Pulse Ox O2 Delivery O2 Flow Rate FiO2 08/25/20 12:00 97.1 80 20 142/77 (98) 98 08/25/20 11:45 72 08/25/20 11:30 142/77 08/25/20 09:07 148 08/25/20 09:02 Room Air Room Air 08/25/20 08:00 97.7 73 20 135/78 (97) 98 08/25/20 07:50 72 08/25/20 07:40 37 08/25/20 04:00 72 08/25/20 04:00 97.3 69 20 137/67 (90) 98 08/25/20 00:00 67 08/25/20 00:00 69 08/25/20 00:00 97.3 74 20 133/77 (95) 97 08/24/20 21:00 Room Air Room Air 08/24/20 20:00 77 08/24/20 20:00 97.9 77 20 139/82 (101) 96 08/24/20 19:00 139/82 08/24/20 16:00 80 08/24/20 16:00 97.9 68 22 130/71 (90) 95 Intake and Output 08/24/20 08/25/20 19:00 07:00 Intake Total 9.18 ml 700.98 ml Output Total 450 ml Balance 9.18 ml 250.98 ml Intake IV Total 9.18 ml 700.98 ml Output Urine Total 450 ml Laboratory Tests Test 08/25/20 03:45 08/25/20 10:10 White Blood Count 5.2 K/UL (4.8-10.8) Red Blood Count 3.99 M/UL (4.70-6.10) L Hemoglobin 13.2 G/DL (14.2-18.0) L Hematocrit 38.6 % (42.0-52.0) L Mean Corpuscular Volume 97 FL (80-99) Mean Corpuscular Hemoglobin 33.0 PG (27.0-31.0) H Mean Corpuscular Hemoglobin Concent 34.1 G/DL (32.0-36.0) Red Cell Distribution Width 12.5 % (11.6-14.8) Platelet Count 99 K/UL (150-450) L Mean Platelet Volume 9.1 FL (6.5-10.1) Neutrophils (%) (Auto) % (45.0-75.0) Lymphocytes (%) (Auto) % (20.0-45.0) Monocytes (%) (Auto) % (1.0-10.0) Eosinophils (%) (Auto) % (0.0-3.0) Basophils (%) (Auto) % (0.0-2.0) Differential Total Cells Counted 100 Neutrophils % (Manual) 43 % (45-75) L Lymphocytes % (Manual) 22 % (20-45) Monocytes % (Manual) 30 % (1-10) H Eosinophils % (Manual) 5 % (0-3) H Basophils % (Manual) 0 % (0-2) Band Neutrophils 0 % (0-8) Platelet Estimate Decreased L Platelet Morphology Normal Red Blood Cell Morphology Normal Sodium Level 137 MMOL/L (136-145) Potassium Level 3.5 MMOL/L (3.5-5.1) Chloride Level 105 MMOL/L (98-107) Carbon Dioxide Level 25 MMOL/L (21-32) Anion Gap 7 mmol/L (5-15) Blood Urea Nitrogen 8 mg/dL (7-18) Creatinine 1.1 MG/DL (0.55-1.30) Estimat Glomerular Filtration Rate > 60 mL/min (>60) Glucose Level 100 MG/DL (74-106) Uric Acid 5.0 MG/DL (2.6-7.2) Calcium Level 7.9 MG/DL (8.5-10.1) L Phosphorus Level 2.6 MG/DL (2.5-4.9) Magnesium Level 2.2 MG/DL (1.8-2.4) Total Bilirubin 1.4 MG/DL (0.2-1.0) H Direct Bilirubin 0.7 MG/DL (0.0-0.3) H Aspartate Amino Transf (AST/SGOT) 42 U/L (15-37) H Alanine Aminotransferase (ALT/SGPT) 76 U/L (12-78) Alkaline Phosphatase 145 U/L (46-116) H Total Protein 6.6 G/DL (6.4-8.2) Albumin 2.5 G/DL (3.4-5.0) L Prothrombin Time 12.2 SEC (9.30-11.50) H Prothromb Time International Ratio 1.1 (0.9-1.1) Objective HEAD AND NECK: No JVD. LUNGS: Coarse rhonchi. CARDIOVASCULAR: Regular S1 and S2 with no gallop. ABDOMEN: Soft. EXTREMITIES: No pitting edema. Carlos Eduardo Crespo MD Aug 25, 2020 13:22
--- NOTE | 2020-08-25 13:28 | Nephrology Progress Note ---
Assessment/Plan Problem List: (1) ANGI (acute kidney injury) (2) Renal failure (ARF), acute on chronic (3) Dehydration (4) UTI (urinary tract infection) (5) BPH (benign prostatic hyperplasia) (6) Agitation due to dementia Assessment Acute renal failure Dehydration, leading to free water deficit and hypernatremia History of hypertension BPH History of lumbar vertebral compression fracture History of hypertension History of depression agitation Plan August 25: Labs reviewed. Stable renal parameters. Variable heart rate. Continues to have pauses. Due for pacemaker. August 24: Labs reviewed. Abnormal electrolyte addressed. Main issue is heart rate pauses. Patient requires pacemaker. Discussed with the inside technical sales representative. Continue current management. August 23: Labs reviewed. Abnormal electrolytes addressed. Patient had a 4- second pause yesterday and another 5-second pause today. Discussed with Dr. Crespo. Patient due transfer to ICU. Pacemaker insertion is being entertained. August 22: Labs reviewed. Abnormal electrolytes addressed. Renal parameters improving. Continue per current management. August 21: Labs reviewed. Electrolytes improving. Abnormal electrolytes a ddressed. Continue per current management. Lipitor and allopurinol held due to abnormal liver function tests August 20: Labs reviewed. Serum sodium declining. Abnormal electrolytes addressed. Continue to hydrate and monitor renal parameters. 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 August 19: Patient periodically agitated and pulls the IV out. On D5W 100 cc an hour. Serum creatinine lowering. Will increase IV fluid to [address] evaluation pending. Labs and medications reviewed. August 18: IV hydration Urine studies and culture Monitor renal parameters Pain medication as needed Psych management as needed Per orders Subjective ROS Limited/Unobtainable: No Constitutional: Reports: malaise, weakness Objective Objective Last 24 Hour Vital Signs Date Time Temp Pulse Resp B/P (MAP) Pulse Ox O2 Delivery O2 Flow Rate FiO2 08/25/20 12:00 97.1 80 20 142/77 (98) 98 08/25/20 11:45 72 08/25/20 11:30 142/77 08/25/20 09:07 148 08/25/20 09:02 Room Air Room Air 08/25/20 08:00 97.7 73 20 135/78 (97) 98 08/25/20 07:50 72 08/25/20 07:40 37 08/25/20 04:00 72 08/25/20 04:00 97.3 69 20 137/67 (90) 98 08/25/20 00:00 67 08/25/20 00:00 69 08/25/20 00:00 97.3 74 20 133/77 (95) 97 08/24/20 21:00 Room Air Room Air 08/24/20 20:00 77 08/24/20 20:00 97.9 77 20 139/82 (101) 96 08/24/20 19:00 139/82 08/24/20 16:00 80 08/24/20 16:00 97.9 68 22 130/71 (90) 95 Intake and Output 08/24/20 08/25/20 19:00 07:00 Intake Total 9.18 ml 700.98 ml Output Total 450 ml Balance 9.18 ml 250.98 ml Intake IV Total 9.18 ml 700.98 ml Output Urine Total 450 ml Current Medications Medications (Trade) Dose Ordered Sig/Fabrizio Route PRN Reason Start Time Stop Time Status Last Admin Dose Admin Acetaminophen (Tylenol) 650 mg Q4H PRN ORAL fever 08/18/20 15:00 09/17/20 14:59 Amlodipine Besylate (Norvasc) 5 mg DAILY ORAL 08/19/20 09:00 09/18/20 08:59 08/23/20 08:52 Aspirin (Ecotrin) 81 mg DAILY ORAL 08/21/20 09:00 10/05/20 08:59 08/23/20 08:52 Chlorhexidine Gluconate (Jennifer-Hex 2%) 1 applic DAILY@2000 TOPIC 08/23/20 20:00 11/21/20 19:59 08/24/20 20:50 Dextrose 1,000 ml @ 60 mls/hr [id number] IV 08/18/20 17:15 09/17/20 17:14 08/24/20 20:52 Dextrose (Dextrose 50%) 25 ml Q30M PRN IV Hypoglycemia 08/18/20 15:00 11/16/20 14:59 Dextrose (Dextrose 50%) 50 ml Q30M PRN IV Hypoglycemia 08/18/20 15:00 11/16/20 14:59 Dopamine HCl/ Dextrose 250 ml @ 9.18 mls/hr Q24H IV 08/24/20 11:20 08/27/20 11:19 08/25/20 11:30 Haloperidol Lactate (Haldol) 5 mg Q6H PRN IM agitation 08/18/20 15:00 10/02/20 14:59 08/22/20 06:27 Ondansetron HCl (Zofran) 4 mg Q6H PRN IVP Nausea & Vomiting 08/18/20 15:00 09/17/20 14:59 Potassium Chloride (K-Dur) 40 meq TWICE A DAY ORAL 08/20/20 18:30 11/18/20 18:29 08/23/20 08:52 Tamsulosin HCl (Flomax) 0.4 mg BID ORAL 08/18/20 18:00 09/18/20 08:59 08/23/20 08:52 Laboratory Tests 08/25/20 03:45: White Blood Count 5.2, Red Blood Count 3.99L, Hemoglobin 13.2L, Hematocrit 38.6L , Mean Corpuscular Volume 97, Mean Corpuscular Hemoglobin 33.0H, Mean Corpuscular Hemoglobin Concent 34.1, Red Cell Distribution Width 12.5, Platelet Count 99L, Mean Platelet Volume 9.1, Neutrophils (%) (Auto) , Lymphocytes (%) (Auto) , Monocytes (%) (Auto) , Eosinophils (%) (Auto) , Basophils (%) (Auto) , Differential Total Cells Counted 100, Neutrophils % (Manual) 43L, Lymphocytes % (Manual) 22, Monocytes % (Manual) 30H, Eosinophils % (Manual) 5H, Basophils % (Manual) 0, Band Neutrophils 0, Platelet Estimate DecreasedL, Platelet Morphology Normal, Red Blood Cell Morphology Normal, Sodium Level 137, Potassium Level 3.5, Chloride Level 105, Carbon Dioxide Level 25, Anion Gap 7, Blood Urea Nitrogen 8, Creatinine 1.1, Estimat Glomerular Filtration Rate > 60, Glucose Level 100, Uric Acid 5.0, Calcium Level 7.9L, Phosphorus Level 2.6, Magnesium Level 2.2, Total Bilirubin 1.4H, Direct Bilirubin 0.7H, Aspartate Amino Transf (AST/SGOT) 42H, Alanine Aminotransferase (ALT/SGPT) 76, Alkaline Phosphatase 145H, Total Protein 6.6, Albumin 2.5L 08/25/20 10:10: Prothrombin Time 12.2H, Prothromb Time International Ratio 1.1 Height (Feet): 6 Height (Inches): 0.00 Weight (Pounds): 180 General Appearance: no apparent distress Cardiovascular: other - Variable Respiratory/Chest: decreased breath sounds Abdomen: distended Gelacio Mata MD Aug 25, 2020 13:28
--- NOTE | 2020-08-25 15:41 | Anethesia Preoperative Eval ---
Anesthesia Pre-op PMH/ROS General Date of Evaluation: Aug 25, 2020 Time of Evaluation: 15:41 Anesthesiologist: siddhartha ASA Score: ASA 4 Mallampati Score Class I : Soft palate, uvula, fauces, pillars visible Class II: Soft palate, uvula, fauces visible Class III: Soft palate, base of uvula visible Class IV: Only hard plate visible Mallampati Classification: Class II Surgeon: Bibi Diagnosis: Sick Sinus Syndrome Surgical Procedure: Permanant pacemaker Anesthesia History: none Family History: no anesthesia problems Allergies: Coded Allergies: No Known Allergies (Unverified , 07/22/20) Medications: see eMAR Patient NPO?: Yes NPO Date: Aug 25, 2020 Past Medical History Cardiovascular: Reports: HTN, CAD, arrhythmia, other - Sick sinus syndrome Pulmonary: Denies: asthma, COPD, MARIA LUISA, other Gastrointestinal/Genitourinary: Reports: CRI, other - BPH; Denies: GERD, ESRD Neurologic/Psychiatric: Reports: dementia, depression/anxiety; Denies: CVA, TIA, other Endocrine: Denies: DM, hypothyroidism, steroids, other HEENT: Denies: cataract (L), cataract (R), glaucoma, [place] (L), [place] (R), other Hematology/Immune: Denies: anemia, DVT, bleeding disorder, other Musculoskeletal/Integumentary: Reports: OA - chronic backpain, recent failure, failure to thrive, other; Denies: RA, DJD, DDD, edema PMH Narrative: 1. Acute kidney injury on chronic renal insufficiency. 2. Dehydration. 3. Abnormal liver function. 4. History of schizophrenia disorder. 5. BPH. 6. Failure to thrive in adult. 7. Hypertension. 8. Impaired mobility. 9. History of compression fracture of the thoracic as well as lumbar spine due to the old trauma. 10. Depression. 11. Possible urinary tract infection. 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 Sick sinus syndrome with frequent episodes of asystole 15. probable paroxysmal atrial fibrillation Anesthesia Pre-op Phys. Exam Physician Exam Last Vital Signs Date Time Temp Pulse Resp B/P (MAP) Pulse Ox O2 Delivery O2 Flow Rate FiO2 08/25/20 12:00 97.1 80 20 142/77 (98) 98 08/25/20 09:02 Room Air Room Air 08/18/20 21:00 2.0 Constitutional: other Neurologic: other - dementia Cardiovascular: other - sick sinus Respiratory: CTA Gastrointestinal: S/NT/ND Airway Exam Mallampati Classification 2 Mallampati Score: Class II MO: limited ROM: limited Dentures: no upper, no lower Anesthesia Pre-op A/P Labs Hematology Test 08/25/20 03:45 White Blood Count 5.2 K/UL (4.8-10.8) Red Blood Count 3.99 M/UL (4.70-6.10) L Hemoglobin 13.2 G/DL (14.2-18.0) L Hematocrit 38.6 % (42.0-52.0) L Mean Corpuscular Volume 97 FL (80-99) Mean Corpuscular Hemoglobin 33.0 PG (27.0-31.0) H Mean Corpuscular Hemoglobin Concent 34.1 G/DL (32.0-36.0) Red Cell Distribution Width 12.5 % (11.6-14.8) Platelet Count 99 K/UL (150-450) L Mean Platelet Volume 9.1 FL (6.5-10.1) Neutrophils (%) (Auto) % (45.0-75.0) Lymphocytes (%) (Auto) % (20.0-45.0) Monocytes (%) (Auto) % (1.0-10.0) Eosinophils (%) (Auto) % (0.0-3.0) Basophils (%) (Auto) % (0.0-2.0) Differential Total Cells Counted 100 Neutrophils % (Manual) 43 % (45-75) L Lymphocytes % (Manual) 22 % (20-45) Monocytes % (Manual) 30 % (1-10) H Eosinophils % (Manual) 5 % (0-3) H Basophils % (Manual) 0 % (0-2) Band Neutrophils 0 % (0-8) Platelet Estimate Decreased L Platelet Morphology Normal Red Blood Cell Morphology Normal Coagulation Test 08/25/20 10:10 Prothrombin Time 12.2 SEC (9.30-11.50) H Prothromb Time International Ratio 1.1 (0.9-1.1) Chemistry Test 08/25/20 03:45 Sodium Level 137 MMOL/L (136-145) Potassium Level 3.5 MMOL/L (3.5-5.1) Chloride Level 105 MMOL/L (98-107) Carbon Dioxide Level 25 MMOL/L (21-32) Anion Gap 7 mmol/L (5-15) Blood Urea Nitrogen 8 mg/dL (7-18) Creatinine 1.1 MG/DL (0.55-1.30) Estimat Glomerular Filtration Rate > 60 mL/min (>60) Glucose Level 100 MG/DL (74-106) Uric Acid 5.0 MG/DL (2.6-7.2) Calcium Level 7.9 MG/DL (8.5-10.1) L Phosphorus Level 2.6 MG/DL (2.5-4.9) Magnesium Level 2.2 MG/DL (1.8-2.4) Total Bilirubin 1.4 MG/DL (0.2-1.0) H Direct Bilirubin 0.7 MG/DL (0.0-0.3) H Aspartate Amino Transf (AST/SGOT) 42 U/L (15-37) H Alanine Aminotransferase (ALT/SGPT) 76 U/L (12-78) Alkaline Phosphatase 145 U/L (46-116) H Total Protein 6.6 G/DL (6.4-8.2) Albumin 2.5 G/DL (3.4-5.0) L Studies Pre-op Studies: EKG - sick sinus Risk Assessment & Plan Assessment: reassess in am Plan: mac/general Status Change Before Surgery: Nohemi Tong CRNA Aug 25, 2020 15:41
[2020-08-25 15:59] VITALS: BP 121/94
[2020-08-25 20:00] VITALS: BP 114/80
[2020-08-25] MEDS: Dyna-Hex 2% Top Sol 2oz TOPIC SCH (20:56)
[2020-08-26] VITALS: BP 130/82
[2020-08-26 04:00] VITALS: BP 119/70
[2020-08-26 04:57] LABS: HEMATOCRIT 42.1 % (42.0-52.0); HEMOGLOBIN 14.3 G/DL (14.2-18.0); MEAN CORPUSCULAR VOLUME 97 FL (80-99); PLATELET COUNT 120 K/UL (150-450); RED BLOOD COUNT 4.36 M/UL (4.70-6.10); RED CELL DISTRIBUTION WIDTH 12.1 % (11.6-14.8); WHITE BLOOD COUNT 5.5 K/UL (4.8-10.8)
[2020-08-26 05:40] LABS: BLOOD UREA NITROGEN 7 mg/dL (7-18); CALCIUM 8.3 MG/DL (8.5-10.1); CARBON DIOXIDE 27 MMOL/L (21-32); CHLORIDE 102 MMOL/L (98-107); POTASSIUM 3.9 MMOL/L (3.5-5.1); SODIUM 135 MMOL/L (136-145)
[2020-08-26 08:00] VITALS: BP 116/65
[2020-08-26] MEDS: Tamsulosin 0.4mg cap ORAL SCH ×2 (08:54→17:04)
[2020-08-26] MEDS: Aspirin EC 81mg tab ORAL SCH (08:54)
--- NOTE | 2020-08-26 10:40 | Cardiac Electrophysiology PN ---
Assessment/Plan Assessment/Plan 1. Multiple small microembolic infarcts. Rule out paroxysmal atrial fibrillation or paradoxical embolus. Echo with bubble study showed no PFO. Neurology FU in progress 2. SSS with multiple more than 4.2 second pauses including 5.2 second pause. Not on Dig, BB or Ca tay while awake at 5 pm Needs pacer. This is also suggestive of PAF as cause of his CVA. Got PICC line and is on Dopamine 3 mcg On schedule for pacer tomorrow now that we have 2 physician consent and ethics committee and friends consent 3. Acute renal failure. Creatinine is improving with hydration. 4. Agitation and dementia. 5. History of lumbar vertebral compression fracture. 6. Hypernatremia. DW Dr. Rothman, case management and Dr. Mata Subjective Subjective Had 4.2 second asystole while awake on 08/22 at around 5 pm on 08/23 and 5.2 second pause on 08/23 off on any AVN tay Now on Dopamine drip at 3 Mcg and still had 2.6 second pause.Scheduled for PPM implant tomorrow Objective Last 24 Hour Vital Signs Date Time Temp Pulse Resp B/P (MAP) Pulse Ox O2 Delivery O2 Flow Rate FiO2 08/26/20 08:54 74 116/65 08/26/20 08:00 98.2 74 18 116/65 (82) 97 08/26/20 07:45 69 08/26/20 06:00 112/88 08/26/20 05:00 106/44 08/26/20 04:00 98.0 73 18 119/70 (86) 98 08/26/20 04:00 119/70 08/26/20 03:27 74 08/26/20 03:00 132/89 08/26/20 02:00 126/84 08/26/20 01:00 122/84 08/26/20 00:00 77 08/26/20 00:00 97.9 79 18 130/82 (98) 98 08/26/20 00:00 126/80 08/25/20 23:00 116/84 08/25/20 22:00 116/68 08/25/20 21:00 122/84 08/25/20 21:00 Room Air Room Air 08/25/20 20:00 98.2 75 20 114/80 (91) 98 08/25/20 20:00 114/83 08/25/20 19:07 79 08/25/20 19:00 114/80 08/25/20 15:59 97.5 76 20 121/94 (103) 98 08/25/20 15:14 75 08/25/20 12:00 97.1 80 20 142/77 (98) 98 08/25/20 11:45 72 08/25/20 11:30 142/77 Intake and Output 08/25/20 08/26/20 18:59 06:59 Intake Total 686.16 ml Output Total 600 ml Balance 86.16 ml Intake IV Total 686.16 ml Output Urine Total 600 ml Laboratory Tests Test 08/26/20 03:05 White Blood Count 5.5 K/UL (4.8-10.8) Red Blood Count 4.36 M/UL (4.70-6.10) L Hemoglobin 14.3 G/DL (14.2-18.0) Hematocrit 42.1 % (42.0-52.0) Mean Corpuscular Volume 97 FL (80-99) Mean Corpuscular Hemoglobin 32.7 PG (27.0-31.0) H Mean Corpuscular Hemoglobin Concent 33.9 G/DL (32.0-36.0) Red Cell Distribution Width 12.1 % (11.6-14.8) Platelet Count 120 K/UL (150-450) L Mean Platelet Volume 9.1 FL (6.5-10.1) Neutrophils (%) (Auto) % (45.0-75.0) Lymphocytes (%) (Auto) % (20.0-45.0) Monocytes (%) (Auto) % (1.0-10.0) Eosinophils (%) (Auto) % (0.0-3.0) Basophils (%) (Auto) % (0.0-2.0) Neutrophils % (Manual) Pending Lymphocytes % (Manual) Pending Platelet Estimate Pending Platelet Morphology Pending Sodium Level 135 MMOL/L (136-145) L Potassium Level 3.9 MMOL/L (3.5-5.1) Chloride Level 102 MMOL/L (98-107) Carbon Dioxide Level 27 MMOL/L (21-32) Blood Urea Nitrogen 7 mg/dL (7-18) Creatinine 1.0 MG/DL (0.55-1.30) Estimat Glomerular Filtration Rate > 60 mL/min (>60) Glucose Level 102 MG/DL (74-106) Calcium Level 8.3 MG/DL (8.5-10.1) L Objective HEAD AND NECK: No JVD. LUNGS: Coarse rhonchi. CARDIOVASCULAR: Regular S1 and S2 with no gallop. ABDOMEN: Soft. EXTREMITIES: No pitting edema. Carlos Eduardo Crespo MD Aug 26, 2020 10:40
[2020-08-26] MEDS: DOPamine 400mg/250ml 250 ML IV SCH ×2 (11:20→17:04)
--- NOTE | 2020-08-26 11:26 | Pulmonology Progress Note ---
Subjective ROS Limited/Unobtainable: No Constitutional: Reports: no symptoms HEENT: Repors: no symptoms Allergies: Coded Allergies: No Known Allergies (Unverified , 07/22/20) All Systems: reviewed and negative except above Objective Last 24 Hour Vital Signs Date Time Temp Pulse Resp B/P (MAP) Pulse Ox O2 Delivery O2 Flow Rate FiO2 08/26/20 09:00 Room Air Room Air 08/26/20 08:54 74 116/65 08/26/20 08:00 98.2 74 18 116/65 (82) 97 08/26/20 07:45 69 08/26/20 06:00 112/88 08/26/20 05:00 106/44 08/26/20 04:00 98.0 73 18 119/70 (86) 98 08/26/20 04:00 119/70 08/26/20 03:27 74 08/26/20 03:00 132/89 08/26/20 02:00 126/84 08/26/20 01:00 122/84 08/26/20 00:00 77 08/26/20 00:00 97.9 79 18 130/82 (98) 98 08/26/20 00:00 126/80 08/25/20 23:00 116/84 08/25/20 22:00 116/68 08/25/20 21:00 122/84 08/25/20 21:00 Room Air Room Air 08/25/20 20:00 98.2 75 20 114/80 (91) 98 08/25/20 20:00 114/83 08/25/20 19:07 79 08/25/20 19:00 114/80 08/25/20 15:59 97.5 76 20 121/94 (103) 98 08/25/20 15:14 75 08/25/20 12:00 97.1 80 20 142/77 (98) 98 08/25/20 11:45 72 08/25/20 11:30 142/77 Intake and Output 08/25/20 08/26/20 19:00 07:00 Intake Total 69.18 ml 616.98 ml Output Total 600 ml Balance 69.18 ml 16.98 ml Intake IV Total 69.18 ml 616.98 ml Output Urine Total 600 ml General Appearance: no acute distress, other - elderly male, not verbally responsive HEENT: normocephalic, atraumatic Respiratory: chest wall non-tender, lungs clear, no respiratory distress Cardiovascular: normal rate - tele with SR 1 st degree AV block Abdomen: soft, non tender, non distended Extremities: no edema, pedal pulses normal Skin: no rash Neurologic: field identification specialist II-XII grossly normal, other - left hemiparesis, nonverbal, w/draws to tactile stimuli Laboratory Tests 08/26/20 03:05: White Blood Count 5.5, Red Blood Count 4.36L, Hemoglobin 14.3, Hematocrit 42.1, Mean Corpuscular Volume 97, Mean Corpuscular Hemoglobin 32.7H, Mean Corpuscular Hemoglobin Concent 33.9, Red Cell Distribution Width 12.1, Platelet Count 120L, Mean Platelet Volume 9.1, Neutrophils (%) (Auto) , Lymphocytes (%) (Auto) , Monocytes (%) (Auto) , Eosinophils (%) (Auto) , Basophils (%) (Auto) , Differential Total Cells Counted 100, Neutrophils % (Manual) 47, Lymphocytes % (Manual) 15L, Monocytes % (Manual) 35H, Eosinophils % (Manual) 3, Basophils % (Manual) 0, Band Neutrophils 0, Platelet Estimate DecreasedL, Platelet Morphology Normal, Red Blood Cell Morphology Normal, Sodium Level 135L, Potassium Level 3.9, Chloride Level 102, Carbon Dioxide Level 27, Blood Urea Nitrogen 7, Creatinine 1.0, Estimat Glomerular Filtration Rate > 60, Glucose Level 102, Calcium Level 8.3L Current Medications Medications (Trade) Dose Ordered Sig/Fabrizio Route PRN Reason Start Time Stop Time Status Last Admin Dose Admin Acetaminophen (Tylenol) 650 mg Q4H PRN ORAL fever 08/18/20 15:00 09/17/20 14:59 Amlodipine Besylate (Norvasc) 5 mg DAILY ORAL 08/19/20 09:00 09/18/20 08:59 08/26/20 08:54 Aspirin (Ecotrin) 81 mg DAILY ORAL 08/21/20 09:00 10/05/20 08:59 08/26/20 08:54 Chlorhexidine Gluconate (Jennifer-Hex 2%) 1 applic DAILY@2000 TOPIC 08/23/20 20:00 11/21/20 19:59 08/25/20 20:56 Dextrose 1,000 ml @ 60 mls/hr [id number] IV 08/18/20 17:15 09/17/20 17:14 08/26/20 05:24 Dextrose (Dextrose 50%) 25 ml Q30M PRN IV Hypoglycemia 08/18/20 15:00 11/16/20 14:59 Dextrose (Dextrose 50%) 50 ml Q30M PRN IV Hypoglycemia 08/18/20 15:00 11/16/20 14:59 Dopamine HCl/ Dextrose 250 ml @ 9.18 mls/hr Q24H IV 08/24/20 11:20 08/27/20 11:19 08/25/20 11:30 Haloperidol Lactate (Haldol) 5 mg Q6H PRN IM agitation 08/18/20 15:00 10/02/20 14:59 08/22/20 06:27 Ondansetron HCl (Zofran) 4 mg Q6H PRN IVP Nausea & Vomiting 08/18/20 15:00 09/17/20 14:59 Potassium Chloride (K-Dur) 40 meq TWICE A DAY ORAL 08/20/20 18:30 11/18/20 18:29 08/26/20 08:55 Tamsulosin HCl (Flomax) 0.4 mg BID ORAL 08/18/20 18:00 09/18/20 08:59 08/26/20 08:54 Assessment/Plan Problems: (1) Sick sinus syndrome (2) Hypernatremia (3) Renal failure (ARF), acute on chronic (4) HTN (hypertension) (5) Failure to thrive in adult (6) BPH (benign prostatic hyperplasia) (7) Schizoaffective disorder Assessment/Plan looks comfortable all reviewed check electrolytes daily f/u renal recommendations doing better will need pacemaker soon. bubble study was negative renal function getting better MRI of brain reviewed., multiple small embolic infarcts Jaclyn Byrne MD Aug 26, 2020 11:26
--- NOTE | 2020-08-26 11:34 | Nephrology Progress Note ---
Assessment/Plan Problem List: (1) ANGI (acute kidney injury) (2) Renal failure (ARF), acute on chronic (3) Dehydration (4) UTI (urinary tract infection) (5) BPH (benign prostatic hyperplasia) (6) Agitation due to dementia Assessment Acute renal failure Dehydration, leading to free water deficit and hypernatremia History of hypertension BPH History of lumbar vertebral compression fracture History of hypertension History of depression agitation Plan August 26: Labs reviewed. Stable renal parameters. Due for pacemaker tomorrow. Discussed with . Discussed with NIDHIchuy. August 25: Labs reviewed. Stable renal parameters. Variable heart rate. Continues to have pauses. Due for pacemaker. August 24: Labs reviewed. Abnormal electrolyte addressed. Main issue is heart rate pauses. Patient requires pacemaker. Discussed with the roller engraver. Continue current management. August 23: Labs reviewed. Abnormal electrolytes addressed. Patient had a 4- second pause yesterday and another 5-second pause today. Discussed with Dr. Crespo. Patient due transfer to ICU. Pacemaker insertion is being entertained. August 22: Labs reviewed. Abnormal electrolytes addressed. Renal parameters improving. Continue per current management. August 21: Labs reviewed. Electrolytes improving. Abnormal electrolytes addressed. Continue per current management. Lipitor and allopurinol held due to abnormal liver function tests August 20: Labs reviewed. Serum sodium declining. Abnormal electrolytes addressed. Continue to hydrate and monitor renal parameters. 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 August 19: Patient periodically agitated and pulls the IV out. On D5W 100 cc an hour. Serum creatinine lowering. Will increase IV fluid to [address] evaluation pending. Labs and medications reviewed. August 18: IV hydration Urine studies and culture Monitor renal parameters Pain medication as needed Psych management as needed Per orders Subjective ROS Limited/Unobtainable: No Constitutional: Reports: malaise, weakness Objective Objective Last 24 Hour Vital Signs Date Time Temp Pulse Resp B/P (MAP) Pulse Ox O2 Delivery O2 Flow Rate FiO2 08/26/20 09:00 Room Air Room Air 08/26/20 08:54 74 116/65 08/26/20 08:00 98.2 74 18 116/65 (82) 97 08/26/20 07:45 69 08/26/20 06:00 112/88 08/26/20 05:00 106/44 08/26/20 04:00 98.0 73 18 119/70 (86) 98 08/26/20 04:00 119/70 08/26/20 03:27 74 08/26/20 03:00 132/89 08/26/20 02:00 126/84 08/26/20 01:00 122/84 08/26/20 00:00 77 08/26/20 00:00 97.9 79 18 130/82 (98) 98 08/26/20 00:00 126/80 08/25/20 23:00 116/84 08/25/20 22:00 116/68 08/25/20 21:00 122/84 08/25/20 21:00 Room Air Room Air 08/25/20 20:00 98.2 75 20 114/80 (91) 98 08/25/20 20:00 114/83 08/25/20 19:07 79 08/25/20 19:00 114/80 08/25/20 15:59 97.5 76 20 121/94 (103) 98 08/25/20 15:14 75 08/25/20 12:00 97.1 80 20 142/77 (98) 98 08/25/20 11:45 72 Intake and Output 08/25/20 08/26/20 19:00 07:00 Intake Total 69.18 ml 616.98 ml Output Total 600 ml Balance 69.18 ml 16.98 ml Intake IV Total 69.18 ml 616.98 ml Output Urine Total 600 ml Current Medications Medications (Trade) Dose Ordered Sig/Fabrizio Route PRN Reason Start Time Stop Time Status Last Admin Dose Admin Acetaminophen (Tylenol) 650 mg Q4H PRN ORAL fever 08/18/20 15:00 09/17/20 14:59 Amlodipine Besylate (Norvasc) 5 mg DAILY ORAL 08/19/20 09:00 09/18/20 08:59 08/26/20 08:54 Aspirin (Ecotrin) 81 mg DAILY ORAL 08/21/20 09:00 10/05/20 08:59 08/26/20 08:54 Chlorhexidine Gluconate (Jennifer-Hex 2%) 1 applic DAILY@2000 TOPIC 08/23/20 20:00 11/21/20 19:59 08/25/20 20:56 Dextrose 1,000 ml @ 60 mls/hr [id number] IV 08/18/20 17:15 09/17/20 17:14 08/26/20 05:24 Dextrose (Dextrose 50%) 25 ml Q30M PRN IV Hypoglycemia 08/18/20 15:00 11/16/20 14:59 Dextrose (Dextrose 50%) 50 ml Q30M PRN IV Hypoglycemia 08/18/20 15:00 11/16/20 14:59 Dopamine HCl/ Dextrose 250 ml @ 9.18 mls/hr Q24H IV 08/24/20 11:20 08/27/20 11:19 08/25/20 11:30 Haloperidol Lactate (Haldol) 5 mg Q6H PRN IM agitation 08/18/20 15:00 10/02/20 14:59 08/22/20 06:27 Ondansetron HCl (Zofran) 4 mg Q6H PRN IVP Nausea & Vomiting 08/18/20 15:00 09/17/20 14:59 Potassium Chloride (K-Dur) 40 meq TWICE A DAY ORAL 08/20/20 18:30 11/18/20 18:29 08/26/20 08:55 Tamsulosin HCl (Flomax) 0.4 mg BID ORAL 08/18/20 18:00 09/18/20 08:59 08/26/20 08:54 Laboratory Tests 08/26/20 03:05: White Blood Count 5.5, Red Blood Count 4.36L, Hemoglobin 14.3, Hematocrit 42.1, Mean Corpuscular Volume 97, Mean Corpuscular Hemoglobin 32.7H, Mean Corpuscular Hemoglobin Concent 33.9, Red Cell Distribution Width 12.1, Platelet Count 120L, Mean Platelet Volume 9.1, Neutrophils (%) (Auto) , Lymphocytes (%) (Auto) , Monocytes (%) (Auto) , Eosinophils (%) (Auto) , Basophils (%) (Auto) , Differential Total Cells Counted 100, Neutrophils % (Manual) 47, Lymphocytes % (Manual) 15L, Monocytes % (Manual) 35H, Eosinophils % (Manual) 3, Basophils % (Manual) 0, Band Neutrophils 0, Platelet Estimate DecreasedL, Platelet Morphology Normal, Red Blood Cell Morphology Normal, Sodium Level 135L, Potassium Level 3.9, Chloride Level 102, Carbon Dioxide Level 27, Blood Urea Nit rogen 7, Creatinine 1.0, Estimat Glomerular Filtration Rate > 60, Glucose Level 102, Calcium Level 8.3L Height (Feet): 6 Height (Inches): 0.00 Weight (Pounds): 180 General Appearance: lethargic Cardiovascular: other - Variable rate Respiratory/Chest: decreased breath sounds Abdomen: soft Gelacio Mata MD Aug 26, 2020 11:34
[2020-08-26 11:41] VITALS: BP 137/71
--- NOTE | 2020-08-26 14:49 | Internal Med Progress Note ---
Subjective Date of Service: Aug 26, 2020 Physician Name Shai Zimmer Attending Physician Andrés Rothman MD Current Medications Medications (Trade) Dose Ordered Sig/Fabrizio Route PRN Reason Start Time Stop Time Status Last Admin Dose Admin Acetaminophen (Tylenol) 650 mg Q4H PRN ORAL fever 08/18/20 15:00 09/17/20 14:59 Amlodipine Besylate (Norvasc) 5 mg DAILY ORAL 08/19/20 09:00 09/18/20 08:59 08/26/20 08:54 Aspirin (Ecotrin) 81 mg DAILY ORAL 08/21/20 09:00 10/05/20 08:59 08/26/20 08:54 Chlorhexidine Gluconate (Jennifer-Hex 2%) 1 applic DAILY@2000 TOPIC 08/23/20 20:00 11/21/20 19:59 08/25/20 20:56 Dextrose 1,000 ml @ 60 mls/hr [id number] IV 08/18/20 17:15 09/17/20 17:14 08/26/20 05:24 Dextrose (Dextrose 50%) 25 ml Q30M PRN IV Hypoglycemia 08/18/20 15:00 11/16/20 14:59 Dextrose (Dextrose 50%) 50 ml Q30M PRN IV Hypoglycemia 08/18/20 15:00 11/16/20 14:59 Dopamine HCl/ Dextrose 250 ml @ 9.18 mls/hr Q24H IV 08/24/20 11:20 08/27/20 11:19 08/25/20 11:30 Haloperidol Lactate (Haldol) 5 mg Q6H PRN IM agitation 08/18/20 15:00 10/02/20 14:59 08/22/20 06:27 Ondansetron HCl (Zofran) 4 mg Q6H PRN IVP Nausea & Vomiting 08/18/20 15:00 09/17/20 14:59 Potassium Chloride (K-Dur) 40 meq TWICE A DAY ORAL 08/20/20 18:30 11/18/20 18:29 08/26/20 08:55 Tamsulosin HCl (Flomax) 0.4 mg BID ORAL 08/18/20 18:00 09/18/20 08:59 08/26/20 08:54 Allergies: Coded Allergies: No Known Allergies (Unverified , 07/22/20) ROS Limited/Unobtainable: Yes Subjective 75 YO M admitted with acute renal failure. Now multiple microembolic brain infarcts. Cover for Int med-DR Rothman. Step Down. Frequent periods of asystole lasting 4-5 sec. On dopamine. Await pacemaker implantation Objective Last Vital Signs Date Time Temp Pulse Resp B/P (MAP) Pulse Ox O2 Delivery O2 Flow Rate FiO2 08/26/20 11:45 78 08/26/20 11:41 97.9 18 137/71 (93) 96 08/26/20 09:00 Room Air Room Air 08/18/20 21:00 2.0 Laboratory Tests Test 08/26/20 03:05 White Blood Count 5.5 K/UL (4.8-10.8) Red Blood Count 4.36 M/UL (4.70-6.10) L Hemoglobin 14.3 G/DL (14.2-18.0) Hematocrit 42.1 % (42.0-52.0) Mean Corpuscular Volume 97 FL (80-99) Mean Corpuscular Hemoglobin 32.7 PG (27.0-31.0) H Mean Corpuscular Hemoglobin Concent 33.9 G/DL (32.0-36.0) Red Cell Distribution Width 12.1 % (11.6-14.8) Platelet Count 120 K/UL (150-450) L Mean Platelet Volume 9.1 FL (6.5-10.1) Neutrophils (%) (Auto) % (45.0-75.0) Lymphocytes (%) (Auto) % (20.0-45.0) Monocytes (%) (Auto) % (1.0-10.0) Eosinophils (%) (Auto) % (0.0-3.0) Basophils (%) (Auto) % (0.0-2.0) Differential Total Cells Counted 100 Neutrophils % (Manual) 47 % (45-75) Lymphocytes % (Manual) 15 % (20-45) L Monocytes % (Manual) 35 % (1-10) H Eosinophils % (Manual) 3 % (0-3) Basophils % (Manual) 0 % (0-2) Band Neutrophils 0 % (0-8) Platelet Estimate Decreased L Platelet Morphology Normal Red Blood Cell Morphology Normal Sodium Level 135 MMOL/L (136-145) L Potassium Level 3.9 MMOL/L (3.5-5.1) Chloride Level 102 MMOL/L (98-107) Carbon Dioxide Level 27 MMOL/L (21-32) Blood Urea Nitrogen 7 mg/dL (7-18) Creatinine 1.0 MG/DL (0.55-1.30) Estimat Glomerular Filtration Rate > 60 mL/min (>60) Glucose Level 102 MG/DL (74-106) Calcium Level 8.3 MG/DL (8.5-10.1) L Intake and Output 08/25/20 08/26/20 19:00 07:00 Intake Total 69.18 ml 686.16 ml Output Total 600 ml Balance 69.18 ml 86.16 ml Intake IV Total 69.18 ml 686.16 ml Output Urine Total 600 ml Objective Objective General: No acute distress, awake and responsive, confused. HEENT: NCAT, sclera anicteric, PERRL, EOMI. Neck: Supple, no significant jugular venous distention, Lungs: Good inspiratory effort,clear to auscultation bilaterally, no Wheeze or Rales. Heart: Regular rate and rhythm, normal S1/S2, no murmur. Abdomen: soft, nontender, nondistended. Normoactive bowel sounds, obesity. / Rectal: Refused and deferred. Extremities: No Cyanosis , clubbing or edema. Neuro: A&O x 1, Able to move all extremities Skin: warm, no rashes or lesions Assessment/Plan Assessment/Plan Assessment/Plan Assessment/Plan Assessment/Plan ASSESSMENT: 1. Acute kidney injury on chronic renal insufficiency. 2. Dehydration. 3. Abnormal liver function. 4. History of schizophrenia disorder. 5. BPH. 6. Failure to thrive in adult. 7. Hypertension. 8. Impaired mobility. 9. History of compression fracture of the thoracic as well as lumbar spine due to the old trauma. 10. Depression. 11. Possible urinary tract infection. 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 Sick sinus syndrome with frequent episodes of asystole 15. probable paroxysmal atrial fibrillation PLAN: Telemetry status Monitor laboratory. IV hydration. Code status: Full Code. DVT prophylaxis: heparin subcutaneous. Dr. Gelacio Mata from Nephrology Dr. Byrne from Pulmonary Critical Care. failed bedside swallow study Neuro=Dr Eskenazi Await Bubble Echocardiogram cardiology=Dr Crespo will require pacemaker per cardiology-soc work/bioethics to gain consent Pacemaker implantation 08/27/20-see cardiology note Abdominal US: 1. Sludge within the distended gallbladder but no acute cholecystitis. 2. Left renal cyst. 3. Hepatic steatosis. 4. Nonspecific splenomegaly. MRI Brain: MULTIPLE SMALL FOCI OF RESTRICTED DIFFUSION IN THE POSTERIOR RIGHT TEMPORAL, RIGHT OCCIPITAL LOBES AND RIGHT THALAMUS. ALSO A SMALL PUNCTATE FOCUS OF RESTRICTED DIFFUSION IN THE LEFT OCCIPITAL LOBE. FINDINGS SUGGEST MULTIPLE SMALL MICROEMBOLIC INFARCTS. NO HEMORRHAGE, MASS EFFECT OR SHIFT. Shai Zimmer MD Aug 26, 2020 14:49
[2020-08-26 16:00] VITALS: BP 146/86
[2020-08-26 20:00] VITALS: BP 123/64
[2020-08-26] MEDS: Dyna-Hex 2% Top Sol 2oz TOPIC SCH (20:57)
--- NOTE | 2020-08-26 21:47 | Neurology Progress Note ---
Interim History Interim History ROS Limited/Unobtainable: Yes Interim History confused no new deficits pending pacemaker Objective Physical Exam Last Vital Signs Date Time Temp Pulse Resp B/P (MAP) Pulse Ox O2 Delivery O2 Flow Rate FiO2 08/26/20 21:00 Room Air Room Air 08/26/20 20:00 76 08/26/20 20:00 98.9 20 123/64 (83) 100 08/18/20 21:00 2.0 Laboratory Tests Test 08/26/20 03:05 White Blood Count 5.5 K/UL (4.8-10.8) Red Blood Count 4.36 M/UL (4.70-6.10) L Hemoglobin 14.3 G/DL (14.2-18.0) Hematocrit 42.1 % (42.0-52.0) Mean Corpuscular Volume 97 FL (80-99) Mean Corpuscular Hemoglobin 32.7 PG (27.0-31.0) H Mean Corpuscular Hemoglobin Concent 33.9 G/DL (32.0-36.0) Red Cell Distribution Width 12.1 % (11.6-14.8) Platelet Count 120 K/UL (150-450) L Mean Platelet Volume 9.1 FL (6.5-10.1) Neutrophils (%) (Auto) % (45.0-75.0) Lymphocytes (%) (Auto) % (20.0-45.0) Monocytes (%) (Auto) % (1.0-10.0) Eosinophils (%) (Auto) % (0.0-3.0) Basophils (%) (Auto) % (0.0-2.0) Differential Total Cells Counted 100 Neutrophils % (Manual) 47 % (45-75) Lymphocytes % (Manual) 15 % (20-45) L Monocytes % (Manual) 35 % (1-10) H Eosinophils % (Manual) 3 % (0-3) Basophils % (Manual) 0 % (0-2) Band Neutrophils 0 % (0-8) Platelet Estimate Decreased L Platelet Morphology Normal Red Blood Cell Morphology Normal Sodium Level 135 MMOL/L (136-145) L Potassium Level 3.9 MMOL/L (3.5-5.1) Chloride Level 102 MMOL/L (98-107) Carbon Dioxide Level 27 MMOL/L (21-32) Blood Urea Nitrogen 7 mg/dL (7-18) Creatinine 1.0 MG/DL (0.55-1.30) Estimat Glomerular Filtration Rate > 60 mL/min (>60) Glucose Level 102 MG/DL (74-106) Calcium Level 8.3 MG/DL (8.5-10.1) L General: well developed Neurologic Exam Objective somnolent, open eyes, non verbal, withdraws to pain Left hemiparesis Impression/Recommendations Problems: (1) Hypernatremia (2) Embolic cerebral infarction (3) Sick sinus syndrome (4) Compression fracture of L3 vertebra (5) Intractable pain (6) Social isolation (7) Impaired mobility and ADLs (8) UTI (urinary tract infection) (9) Suicidal ideations (10) HTN (hypertension) (11) Dehydration (12) Failure to thrive in adult (13) Renal failure (ARF), acute on chronic (14) ANGI (acute kidney injury) (15) BPH (benign prostatic hyperplasia) (16) Agitation due to dementia (17) Schizoaffective disorder Diagnostic Impression Acute ischemic stroke bilateral hemispheres, anterior and posterior circulation high concern for embolic Tele cont asa daily statin daily Carotid US no significant athero Natalio Whitfield MD Aug 26, 2020 21:47
[2020-08-27] VITALS (13 sets, daily range): BP systolic 109–141; BP diastolic 53–93
[2020-08-27] MEDS: Tamsulosin 0.4mg cap ORAL SCH ×2 (09:00→17:14)
[2020-08-27] MEDS: Aspirin EC 81mg tab ORAL SCH (09:00)
--- NOTE | 2020-08-27 10:28 | Nephrology Progress Note ---
Assessment/Plan Problem List: (1) ANGI (acute kidney injury) (2) Renal failure (ARF), acute on chronic (3) Dehydration (4) UTI (urinary tract infection) (5) BPH (benign prostatic hyperplasia) (6) Agitation due to dementia Assessment Acute renal failure Dehydration, leading to free water deficit and hypernatremia History of hypertension BPH History of lumbar vertebral compression fracture History of hypertension History of depression agitation Plan August 27: No labs drawn today. Patient due for pacemaker placement. IV fluid changed to D5 normal saline. Continue to monitor electrolyte renal parameters. Discussed with RN. August 26: Labs reviewed. Stable renal parameters. Due for pacemaker tomorrow. Discussed with . Discussed with [facility]. August 25: Labs reviewed. Stable renal parameters. Variable heart rate. Continues to have pauses. Due for pacemaker. August 24: Labs reviewed. Abnormal electrolyte addressed. Main issue is heart rate pauses. Patient requires pacemaker. Discussed with the director digital sales. Continue current management. August 23: Labs reviewed. Abnormal electrolytes addressed. Patient had a 4- second pause yesterday and another 5-second pause today. Discussed with Dr. Crespo. Patient due transfer to ICU. Pacemaker insertion is being entertained. August 22: Labs reviewed. Abnormal electrolytes addressed. Renal parameters improving. Continue per current management. August 21: Labs reviewed. Electrolytes improving. Abnormal electrolytes addressed. Continue per current management. Lipitor and allopurinol held due to abnormal liver function tests August 20: Labs reviewed. Serum sodium declining. Abnormal electrolytes addressed. Continue to hydrate and monitor renal parameters. 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 August 19: Patient periodically agitated and pulls the IV out. On D5W 100 cc an hour. Serum creatinine lowering. Will increase IV fluid to [address] evaluation pending. Labs and medications reviewed. August 18: IV hydration Urine studies and culture Monitor renal parameters Pain medication as needed Psych management as needed Per orders Subjective ROS Limited/Unobtainable: No Constitutional: Reports: weakness Objective Objective Last 24 Hour Vital Signs Date Time Temp Pulse Resp B/P (MAP) Pulse Ox O2 Delivery O2 Flow Rate FiO2 08/27/20 09:00 95 130/77 08/27/20 07:59 98.1 95 20 130/77 (94) 96 08/27/20 07:39 83 08/27/20 04:00 98.2 76 20 109/67 (81) 100 08/27/20 03:37 69 08/27/20 00:00 98.2 102 20 141/58 (85) 100 08/27/20 00:00 Room Air Room Air 08/27/20 00:00 87 08/26/20 23:00 141/58 08/26/20 21:00 Room Air Room Air 08/26/20 20:00 76 08/26/20 20:00 98.9 85 20 123/64 (83) 100 08/26/20 20:00 123/64 08/26/20 17:04 146/86 08/26/20 16:25 89 08/26/20 16:00 98.1 87 20 146/86 (106) 98 08/26/20 11:45 78 08/26/20 11:41 97.9 68 18 137/71 (93) 96 08/26/20 11:20 137/71 08/26/20 11:00 137/71 Intake and Output 08/26/20 08/27/20 19:00 07:00 Intake Total 830.16 ml 781.34 ml Output Total 1200 ml Balance 830.16 ml -418.66 ml Intake IV Total 830.16 ml 781.34 ml Output Urine Total 1200 ml No labs drawn today Height (Feet): 6 Height (Inches): 0.00 Weight (Pounds): 180 General Appearance: no apparent distress, lethargic Cardiovascular: arrhythmia, other - Variable rate Respiratory/Chest: decreased breath sounds Abdomen: distended Gelacio Mata MD Aug 27, 2020 10:28
--- NOTE | 2020-08-27 10:37 | Cardiac Electrophysiology PN ---
Assessment/Plan Assessment/Plan 1. Multiple small microembolic infarcts. Rule out paroxysmal atrial fibrillation or paradoxical embolus. Echo with bubble study showed no PFO. Neurology FU in progress 2. SSS with multiple more than 4.2 second pauses including 5.2 second pause. Not on Dig, BB or Ca tay while awake at 5 pm This is also suggestive of PAF as cause of his CVA. Got PICC line and is on Dopamine 3 mcg NPO for pacer today. There are 2 physician consent and Ethics committee and Friends consent 3. Acute renal failure. Creatinine is improving with hydration. 4. Agitation and dementia. 5. History of lumbar vertebral compression fracture. 6. Hypernatremia. DW Dr. Rothman, case management and Dr. Mata Subjective Subjective Had 4.2 second asystole while awake on 08/22 at around 5 pm on 08/23 and 5.2 second pause on 08/23 off on any AVN tay On Dopamine drip at 3 Mcg and still had 2.6 second pause. NPO for PPM implant today Objective Last 24 Hour Vital Signs Date Time Temp Pulse Resp B/P (MAP) Pulse Ox O2 Delivery O2 Flow Rate FiO2 08/27/20 09:00 95 130/77 08/27/20 07:59 98.1 95 20 130/77 (94) 96 08/27/20 07:39 83 08/27/20 04:00 98.2 76 20 109/67 (81) 100 08/27/20 03:37 69 08/27/20 00:00 98.2 102 20 141/58 (85) 100 08/27/20 00:00 Room Air Room Air 08/27/20 00:00 87 08/26/20 23:00 141/58 08/26/20 21:00 Room Air Room Air 08/26/20 20:00 76 08/26/20 20:00 98.9 85 20 123/64 (83) 100 08/26/20 20:00 123/64 08/26/20 17:04 146/86 08/26/20 16:25 89 08/26/20 16:00 98.1 87 20 146/86 (106) 98 08/26/20 11:45 78 08/26/20 11:41 97.9 68 18 137/71 (93) 96 08/26/20 11:20 137/71 08/26/20 11:00 137/71 Intake and Output 08/26/20 08/27/20 19:00 07:00 Intake Total 830.16 ml 781.34 ml Output Total 1200 ml Balance 830.16 ml -418.66 ml Intake IV Total 830.16 ml 781.34 ml Output Urine Total 1200 ml Objective HEAD AND NECK: No JVD. LUNGS: Coarse rhonchi. CARDIOVASCULAR: Regular S1 and S2 with no gallop. ABDOMEN: Soft. EXTREMITIES: No pitting edema. Carlos Eduardo Crespo MD Aug 27, 2020 10:37
--- NOTE | 2020-08-27 10:39 | Pre-Procedure Note/Attestation ---
Pre-Procedure Note/Attestation Complete Prior to Procedure Planned Procedure: left Indications for Procedure Pre-Operative Diagnosis: Sick sinus syndrome Attestation I attest that I discussed the nature of the procedure; its benefits; risks and complications; and alternatives (and the risks and benefits of such alternatives), prior to the procedure, with the patient (or the patient's legal jewelry sales representative). I attest that, if there was a reasonable possibility of needing a blood transfusion, the patient (or the patient's legal jewelry sales representative) was given the [facility] standardized written summary, pursuant to the Bladimir Singh Blood Safety Act ([place] Health and Safety Code # 1645, as amended). I attest that I re-evaluated the patient just prior to the surgery and that there has been no change in the patient's H&P, except as documented below: Carlos Eduardo Crespo MD Aug 27, 2020 10:39
[2020-08-27] MEDS ORDERED: Sterile Water Irrig 1000ml IRRIG ONE (11:00)
[2020-08-27] MEDS ORDERED: NS Irrig 1000ml ONE (11:00)
[2020-08-27] MEDS ORDERED: LR 1000ml ONE (11:00)
--- NOTE | 2020-08-27 11:11 | Pulmonology Progress Note ---
Subjective ROS Limited/Unobtainable: No Constitutional: Reports: no symptoms HEENT: Repors: no symptoms Allergies: Coded Allergies: No Known Allergies (Unverified , 07/22/20) All Systems: reviewed and negative except above Objective Last 24 Hour Vital Signs Date Time Temp Pulse Resp B/P (MAP) Pulse Ox O2 Delivery O2 Flow Rate FiO2 08/27/20 09:00 95 130/77 08/27/20 07:59 98.1 95 20 130/77 (94) 96 08/27/20 07:39 83 08/27/20 04:00 98.2 76 20 109/67 (81) 100 08/27/20 03:37 69 08/27/20 00:00 98.2 102 20 141/58 (85) 100 08/27/20 00:00 Room Air Room Air 08/27/20 00:00 87 08/26/20 23:00 141/58 08/26/20 21:00 Room Air Room Air 08/26/20 20:00 76 08/26/20 20:00 98.9 85 20 123/64 (83) 100 08/26/20 20:00 123/64 08/26/20 17:04 146/86 08/26/20 16:25 89 08/26/20 16:00 98.1 87 20 146/86 (106) 98 08/26/20 11:45 78 08/26/20 11:41 97.9 68 18 137/71 (93) 96 08/26/20 11:20 137/71 Intake and Output 08/26/20 08/27/20 19:00 07:00 Intake Total 830.16 ml 781.34 ml Output Total 1200 ml Balance 830.16 ml -418.66 ml Intake IV Total 830.16 ml 781.34 ml Output Urine Total 1200 ml General Appearance: no acute distress, other - elderly male, not verbally responsive HEENT: normocephalic, atraumatic Respiratory: chest wall non-tender, lungs clear, no respiratory distress Cardiovascular: normal rate - tele with SR 1 st degree AV block Abdomen: soft, non tender, non distended Extremities: no edema, pedal pulses normal Skin: no rash Neurologic: drug and alcohol counselor II-XII grossly normal, other - left hemiparesis, nonverbal, w/draws to tactile stimuli Lymphatic: no neck adenopathy, no groin adenopathy Current Medications Medications (Trade) Dose Ordered Sig/Fabrizio Route PRN Reason Start Time Stop Time Status Last Admin Dose Admin Acetaminophen (Tylenol) 650 mg Q4H PRN ORAL fever 08/18/20 15:00 09/17/20 14:59 Amlodipine Besylate (Norvasc) 5 mg DAILY ORAL 08/19/20 09:00 09/18/20 08:59 08/26/20 08:54 Aspirin (Ecotrin) 81 mg DAILY ORAL 08/21/20 09:00 10/05/20 08:59 08/26/20 08:54 Chlorhexidine Gluconate (Jennifer-Hex 2%) 1 applic DAILY@2000 TOPIC 08/23/20 20:00 11/21/20 19:59 08/26/20 20:57 Dextrose (Dextrose 50%) 25 ml Q30M PRN IV Hypoglycemia 08/18/20 15:00 11/16/20 14:59 Dextrose (Dextrose 50%) 50 ml Q30M PRN IV Hypoglycemia 08/18/20 15:00 11/16/20 14:59 Dextrose/Sodium Chloride 1,000 ml @ 50 mls/hr Q20H IV 08/27/20 10:30 09/26/20 10:29 Dopamine HCl/ Dextrose 250 ml @ 9.18 mls/hr Q24H IV 08/24/20 11:20 08/27/20 11:19 08/26/20 17:04 Haloperidol Lactate (Haldol) 5 mg Q6H PRN IM agitation 08/18/20 15:00 10/02/20 14:59 08/22/20 06:27 Ondansetron HCl (Zofran) 4 mg Q6H PRN IVP Nausea & Vomiting 08/18/20 15:00 09/17/20 14:59 Potassium Chloride (K-Dur) 40 meq TWICE A DAY ORAL 08/20/20 18:30 11/18/20 18:29 08/26/20 17:04 Tamsulosin HCl (Flomax) 0.4 mg BID ORAL 08/18/20 18:00 09/18/20 08:59 08/26/20 17:04 Assessment/Plan Problems: (1) Sick sinus syndrome (2) Hypernatremia (3) Renal failure (ARF), acute on chronic (4) HTN (hypertension) (5) Failure to thrive in adult (6) BPH (benign prostatic hyperplasia) (7) Schizoaffective disorder Assessment/Plan getting pace maker today patient doesn't have any DOPA. He is not capable of signing anything. looks comfortable all reviewed check electrolytes daily f/u renal recommendations doing better bubble study was negative renal function getting better MRI of brain reviewed., multiple small embolic infarcts Jaclyn Byrne MD Aug 27, 2020 11:11
[2020-08-27] MEDS ORDERED: Isovue-M 300 15ml INJ ONE (11:17)
[2020-08-27] MEDS ORDERED: Lidocaine 1% Plain 30 ml INJ ONE (11:17)
[2020-08-27] MEDS ORDERED: Sodium Chloride 10ml vial INJ ONE (11:21)
--- NOTE | 2020-08-27 11:27 | Anethesia Preoperative Eval ---
Anesthesia Pre-op PMH/ROS General Date of Evaluation: Aug 27, 2020 Time of Evaluation: 11:16 Anesthesiologist: Miki ASA Score: ASA 4 Mallampati Score Class I : Soft palate, uvula, fauces, pillars visible Class II: Soft palate, uvula, fauces visible Class III: Soft palate, base of uvula visible Class IV: Only hard plate visible Mallampati Classification: Class II Surgeon: Cherie Anesthesia History: none Family History: no anesthesia problems Allergies: Coded Allergies: No Known Allergies (Unverified , 07/22/20) Medications: see eMAR Patient NPO?: Yes NPO Date: Aug 25, 2020 Anesthesia Pre-op Phys. Exam Physician Exam Last Vital Signs Date Time Temp Pulse Resp B/P (MAP) Pulse Ox O2 Delivery O2 Flow Rate FiO2 08/27/20 09:00 Room Air Room Air 08/27/20 09:00 95 130/77 08/27/20 07:59 98.1 20 96 08/18/20 21:00 2.0 Airway Exam Mallampati Score: Class II Delano Livingston MD Aug 27, 2020 11:27
[2020-08-27] MEDS ORDERED: HYDROcodone/Acetamin 5/325 tab ORAL PRN (11:30)
[2020-08-27] MEDS ORDERED: Midazolam 2mg/2ml Inj IVP PRN (11:30)
[2020-08-27] MEDS ORDERED: Meperidine 25mg/1ml Inj (FOR RIGORS ONLY) IV PRN (11:30)
[2020-08-27] MEDS ORDERED: HYDROcodone/Acetamin 7.5/325 tab ORAL PRN (11:30)
[2020-08-27] MEDS ORDERED: Atropine Sulfate 0.4mg/ml inj IVP PRN (11:30)
[2020-08-27] MEDS ORDERED: Labetalol 5mg/ml 20ml vial IV PRN (11:30)
[2020-08-27] MEDS ORDERED: LORazepam Inj 2mg/ml 1ml IV PRN (11:30)
[2020-08-27] MEDS ORDERED: LR 1000ml 1,000 ML IVLG SCH (11:30)
[2020-08-27] MEDS ORDERED: DiphenhydrAMINE 50mg/ml Inj IVP PRN (11:30)
[2020-08-27] MEDS ORDERED: oxyCODONE HCL/Acetaminophen 5/325mg ORAL PRN (11:30)
[2020-08-27] MEDS ORDERED: Hydromorphone 0.5mg/0.5ml inj IVP PRN (11:30)
[2020-08-27] MEDS ORDERED: fentaNYL 100 mcg/2 mL IV PRN (11:30)
[2020-08-27] MEDS ORDERED: Flumazenil 0.5mg/5ml Inj IV ONE (12:21)
--- NOTE | 2020-08-27 12:39 | Brief Operative Note ---
Immediate Post Operative Note Operative Note Pre-op Diagnosis: Sick sinus syndrome Procedure: DDD [facility] Pacer Placement Dictated [id number] Post-op Diagnosis: same as pre-op Specimen: none Complications: none Condition: stable Fluids: none Estimated Blood Loss: minimal Implant(s) used?: Yes Carlos Eduardo Crespo MD Aug 27, 2020 12:39
[2020-08-27] MEDS ORDERED: Tylenol #3 tab (300mg/30mg) ORAL PRN (12:45)
[2020-08-27] MEDS ORDERED: Morphine Sulfate 2mg/ml Inj(IV/IM USE ONLY) IVP PRN (12:45)
--- NOTE | 2020-08-27 12:49 | Immediate Post-Op Evaluation ---
Immediate Post-Op Evalulation Immediate Post-Op Evalulation Procedure: Permanent Pacemaker Date of Evaluation: Aug 27, 2020 Time of Evaluation: 13:04 IV Fluids: 400 LR Blood Products: 0 Estimated Blood Loss: 10 Urinary Output: 0 Blood Pressure Systolic: 137 Blood Pressure Diastolic: 77 Pulse Rate: 75 Respiratory Rate: 16 O2 Sat by Pulse Oximetry: 100 Temperature (Fahrenheit): 98.1 Pain Score (1-10): 2 Nausea: No Vomiting: No Complications 0 Patient Status: awake, reacts, patent, extubated, none Hydration Status: adequate Dru Gram Ancef IV Given Within 1 Hr of Incision: Yes Time Given: 11:26 Delano Livingston MD Aug 27, 2020 12:49
--- NOTE | 2020-08-27 12:51 | 48 Hour Post Anesthesia Eval ---
Post Anesthesia Evaluation Procedure: Permanent Pacemaker Date of Evaluation: Aug 27, 2020 Time of Evaluation: 15:16 Blood Pressure Systolic: 138 0: 74 Pulse Rate: 75 Respiratory Rate: 18 Temperature (Fahrenheit): 98.2 O2 Sat by Pulse Oximetry: 100 Airway: patent Nausea: No Vomiting: No Pain Intensity: 2 Hydration Status: adequate Cardiopulmonary Status: Stable Mental Status/LOC: patient returned to baseline Follow-up Care/Observations: 0 Post-Anesthesia Complications: 0 Follow-up care needed: N/A Delano Livingston MD Aug 27, 2020 12:51
[2020-08-27] MEDS: D5NS 1,000 ML IV SCH (14:04)
--- NOTE | 2020-08-27 14:17 | Internal Med Progress Note ---
Subjective Date of Service: Aug 27, 2020 Physician Name MeshaShai Attending Physician Andrés Rothman MD Current Medications Medications (Trade) Dose Ordered Sig/Fabrizio Route PRN Reason Start Time Stop Time Status Last Admin Dose Admin Acetaminophen (Tylenol) 650 mg Q4H PRN ORAL fever 08/18/20 15:00 09/17/20 14:59 Acetaminophen (Tylenol) 650 mg Q6H PRN ORAL Temp >100.5 08/27/20 12:45 09/26/20 12:44 UNV Acetaminophen/ Codeine Phosphate (Tylenol #3) 1 tab Q4H PRN ORAL Moderate Pain (Pain Scale 4-6) 08/27/20 12:45 09/03/20 12:44 UNV Acetaminophen/ Hydrocodone Bitart ([place] 5/325) 1 tab Q1H PRN ORAL Mild Pain (Pain Scale 1-3) 08/27/20 11:30 08/27/20 16:00 Acetaminophen/ Hydrocodone Bitart ([place] 7.5/325) 1 tab Q1H PRN ORAL Moderate Pain (Pain Scale 4-6) 08/27/20 11:30 08/27/20 16:00 Al Hydroxide/Mg Hydroxide (Mylanta) 15 ml Q1H PRN ORAL gi upset 08/27/20 11:30 08/27/20 16:00 Amlodipine Besylate (Norvasc) 5 mg DAILY ORAL 08/19/20 09:00 09/18/20 08:59 08/26/20 08:54 Aspirin (Ecotrin) 81 mg DAILY ORAL 08/21/20 09:00 10/05/20 08:59 08/26/20 08:54 Atropine Sulfate (Atropine 0.4mg/ ml) 0.5 mg Q5M PRN IVP HR<40 08/27/20 11:30 08/27/20 16:00 Cefazolin Sodium 1 gm/Dextrose 55 ml @ 110 mls/hr Q8HR IVP 08/27/20 14:00 09/03/20 13:59 UNV Chlorhexidine Gluconate (Jennifer-Hex 2%) 1 applic DAILY@2000 TOPIC 08/23/20 20:00 11/21/20 19:59 08/26/20 20:57 Dextrose (Dextrose 50%) 25 ml Q30M PRN IV Hypoglycemia 08/18/20 15:00 11/16/20 14:59 Dextrose (Dextrose 50%) 50 ml Q30M PRN IV Hypoglycemia 08/18/20 15:00 11/16/20 14:59 Dextrose/Sodium Chloride 1,000 ml @ 50 mls/hr Q20H IV 08/27/20 10:30 09/26/20 10:29 08/27/20 14:04 Diphenhydramine HCl (Benadryl) 25 mg Q15M PRN IVP Itching 08/27/20 11:30 08/27/20 16:00 Fentanyl Citrate (Sublimaze 100 mcg/2 mL) 25 mcg Q10M PRN IV Moderate Pain (Pain Scale 4-6) 08/27/20 11:30 08/27/20 16:00 Haloperidol Lactate (Haldol) 5 mg Q6H PRN IM agitation 08/18/20 15:00 10/02/20 14:59 08/22/20 06:27 Hydralazine HCl (Apresoline) 5 mg Q30M PRN IV SBP>160 / DBP>90 08/27/20 11:30 08/27/20 16:00 Hydromorphone HCl (Dilaudid) 0.5 mg Q15M PRN IVP Severe Pain (Pain Scale 7-10) 08/27/20 11:30 08/27/20 16:00 Labetalol HCl (Normodyne) 5 mg Q10M PRN IV SBP>160 / DBP>90 08/27/20 11:30 08/27/20 16:00 Lactated Ringer's 1,000 ml @ 10 mls/hr Q24H IVLG 08/27/20 11:30 08/27/20 16:00 Lorazepam (Ativan 2mg/ml 1ml) 1 mg Q15M PRN IV For Anxiety 08/27/20 11:30 08/27/20 16:00 Meperidine HCl (Demerol) 25 mg Q5M PRN IV SHIVERING.MAY REPEAT X 1 08/27/20 11:30 08/27/20 16:00 Midazolam HCl (Versed 2mg/2ml vial) 1 mg Q15M PRN IVP For Anxiety 08/27/20 11:30 08/27/20 16:00 Morphine Sulfate (Morphine Sulfate) 2 mg Q1H PRN IVP Severe Pain (Pain Scale 7-10) 08/27/20 12:45 09/03/20 12:44 UNV Ondansetron HCl (Zofran) 4 mg Q6H PRN IVP Nausea & Vomiting 08/18/20 15:00 09/17/20 14:59 Ondansetron HCl (Zofran) 4 mg Q6H PRN IVP Nausea & Vomiting 08/27/20 12:45 09/26/20 12:44 UNV Oxycodone/ Acetaminophen (Percocet 5-325) 1 tab Q1H PRN ORAL Severe Pain (Pain Scale 7-10) 08/27/20 11:30 08/27/20 16:00 Potassium Chloride (K-Dur) 40 meq TWICE A DAY ORAL 08/20/20 18:30 11/18/20 18:29 08/26/20 17:04 Tamsulosin HCl (Flomax) 0.4 mg BID ORAL 08/18/20 18:00 09/18/20 08:59 08/26/20 17:04 Allergies: Coded Allergies: No Known Allergies (Unverified , 07/22/20) ROS Limited/Unobtainable: Yes Subjective 75 YO M admitted with acute renal failure. Now multiple microembolic brain infarcts. Cover for Int med-DR Rothman. Step Down. Frequent periods of asystole lasting 4-5 sec. On dopamine taper. S/P pacemaker implantation 08/27/20 Objective Last Vital Signs Date Time Temp Pulse Resp B/P (MAP) Pulse Ox O2 Delivery O2 Flow Rate FiO2 08/27/20 13:15 75 18 137/53 100 Simple Mask 6 08/27/20 12:45 98.5 Intake and Output 08/26/20 08/27/20 19:00 07:00 Intake Total 830.16 ml 781.34 ml Output Total 1200 ml Balance 830.16 ml -418.66 ml Intake IV Total 830.16 ml 781.34 ml Output Urine Total 1200 ml Objective Objective General: No acute distress, awake and responsive, confused. HEENT: NCAT, sclera anicteric, PERRL, EOMI. Neck: Supple, no significant jugular venous distention, Lungs: Good inspiratory effort,clear to auscultation bilaterally, no Wheeze or Rales. Heart: Regular rate and rhythm, normal S1/S2, no murmur. Abdomen: soft, nontender, nondistended. Normoactive bowel sounds, obesity. / Rectal: Refused and deferred. Extremities: No Cyanosis , clubbing or edema. Neuro: A&O x 1, Able to move all extremities Skin: warm, no rashes or lesions Assessment/Plan Assessment/Plan Assessment/Plan Assessment/Plan Assessment/Plan ASSESSMENT: 1. Acute kidney injury on chronic renal insufficiency. 2. Dehydration. 3. Abnormal liver function. 4. History of schizophrenia disorder. 5. BPH. 6. Failure to thrive in adult. 7. Hypertension. 8. Impaired mobility. 9. History of compression fracture of the thoracic as well as lumbar spine due to the old trauma. 10. Depression. 11. Possible urinary tract infection. 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 Sick sinus syndrome with frequent episodes of asystole 15. probable paroxysmal atrial fibrillation PLAN: Telemetry status Monitor laboratory. IV hydration. Code status: Full Code. DVT prophylaxis: heparin subcutaneous. Dr. Gelacio Mata from Nephrology Dr. Byrne from Pulmonary Critical Care. failed bedside swallow study Neuro=Dr Whitfield Await Bubble Echocardiogram cardiology=Dr Crespo will require pacemaker per cardiology-soc work/bioethics to gain consent S/P Pacemaker implantation 08/27/20-see cardiology note Abdominal US: 1. Sludge within the distended gallbladder but no acute cholecystitis. 2. Left renal cyst. 3. Hepatic steatosis. 4. Nonspecific splenomegaly. MRI Brain: MULTIPLE SMALL FOCI OF RESTRICTED DIFFUSION IN THE POSTERIOR RIGHT TEMPORAL, RIGHT OCCIPITAL LOBES AND RIGHT THALAMUS. ALSO A SMALL PUNCTATE FOCUS OF RESTRICTED DIFFUSION IN THE LEFT OCCIPITAL LOBE. FINDINGS SUGGEST MULTIPLE SMALL MICROEMBOLIC INFARCTS. NO HEMORRHAGE, MASS EFFECT OR SHIFT. Shai Zimmer MD Aug 27, 2020 14:17
--- NOTE | 2020-08-27 16:28 | Diagnostic Imaging Report ---
INDICATION: Pain, intraoperative TECHNIQUE: Intraoperative imaging Fluoroscopy time: 95.4 seconds Total dose: 0.20290 mGym2 Total number of images: 1 COMPARISON: None FINDINGS: Intraoperative images document pacemaker lead placement at the expected level of the right atrium and right ventricular apex IMPRESSION: Operative imaging, as described
--- NOTE | 2020-08-27 16:29 | Operative Note - Dictated ---
DATE OF OPERATION: 08/27/2020 DUAL-CHAMBER PERMANENT PACEMAKER IMPLANTATION SURGEON: Carlos Eduardo Crespo MD INDICATION FOR PROCEDURE: Sick sinus syndrome with multiple prolonged pauses, not due to a correctable cause. PROCEDURES PERFORMED: 1. Dual-chamber permanent pacemaker implantation. 2. Fluoroscopic supervision and interpretation. 3. Pacemaker program during initial implant. OPERATIVE REPORT: Patient was brought into operating room in the fasting state and after informed consent was obtained. Patient was prepped and draped in usual fashion. Conscious sedation was provided by the anesthesiologist. Patient received antibiotics within an hour of incision. After prep and drape and under sterile condition, a total of 20 mL lidocaine was given to left prepectoralis area. An incision was made along the left deltopectoral groove. Sharp and blunt dissection was made to the level of pectoralis fascia. The cephalic vein cutdown was performed. The right atrial and right ventricular lead was placed through this access and was placed in right atrial appendage and right ventricular apex with excellent sensing and pacing parameters. Both these were affixed to underlying pectoralis fascia. A pocket was made close to the venous access site and was irrigated with antibiotic solution. Four leads were then connected to the pacemaker and left in the pocket. The pocket was closed in three layers using 2-0 Vicryl and Dermabond. The patient suffered no immediate complications from the procedure and was transferred to recovery room in stable condition. FINDINGS: The pacemaker is from [employer]. It's model number [id number], serial number #[id number]. Right atrial lead is from [employer]. It's model number 2088TC, 62 cm. Serial number #[id number]. Right ventricular lead is from [employer]. It's model number 2088TC, 58 cm. Serial number #[id number]. The P-wave amplitude was 2.2 millivolts, threshold is 0.75 volts at 0.4 milliseconds, impedance of 410 ohms. R-wave is more than 12 millivolts, threshold is 0.875 volts at 0.4 milliseconds, impedance 590 ohms. IMPRESSION: 1. Successful dual-chamber permanent pacemaker implantation. 2. Pacemaker was programmed, lower rate of 60, upper rate of 130, DDD mode. 3. No immediate complications from the procedure. Carlos Eduardo Crespo M.D. DR: SHANNAN JOB#: [id number] CC:
--- NOTE | 2020-08-27 16:30 | Diagnostic Imaging Report ---
Indication: Status post pacemaker placement Technique: One view of the chest Comparison: 08/23/2020 Findings: Interim placement left chest pacemaker, lead tips in the expected region of the right atrium and right ventricular apex. Interim placement left arm PICC. The heart size is normal. There is slight blunting of left costophrenic sulcus. Lungs and pleural spaces are otherwise clear. No pneumothorax Impression: Satisfactory placement left chest pacemaker, no radiographically evident complication Possible small left pleural effusion
--- NOTE | 2020-08-27 17:50 | Neurology Progress Note ---
Interim History Interim History ROS Limited/Unobtainable: Yes Interim History pacemaker planned today Objective Physical Exam Last Vital Signs Date Time Temp Pulse Resp B/P (MAP) Pulse Ox O2 Delivery O2 Flow Rate FiO2 08/27/20 16:00 98.0 84 20 114/93 (100) 99 08/27/20 13:45 Room Air 08/27/20 13:15 6 General: well developed Neurologic Exam Objective somnolent, open eyes, non verbal, withdraws to pain Left hemiparesis Impression/Recommendations Problems: (1) Hypernatremia (2) Embolic cerebral infarction (3) Sick sinus syndrome (4) Compression fracture of L3 vertebra (5) Intractable pain (6) Social isolation (7) Impaired mobility and ADLs (8) UTI (urinary tract infection) (9) Suicidal ideations (10) HTN (hypertension) (11) Dehydration (12) Failure to thrive in adult (13) Renal failure (ARF), acute on chronic (14) ANGI (acute kidney injury) (15) BPH (benign prostatic hyperplasia) (16) Agitation due to dementia (17) Schizoaffective disorder Diagnostic Impression Acute ischemic stroke bilateral hemispheres, anterior and posterior circulation high concern for embolic Tele cont asa daily statin daily Carotid US no significant athero Natalio Whitfield MD Aug 27, 2020 17:50
[2020-08-27] MEDS: Dyna-Hex 2% Top Sol 2oz TOPIC SCH (20:19)
[2020-08-27] MEDS: ceFAZolin sod 1 GM in D5W 55 ML IVP SCH (20:19)
[2020-08-28] VITALS (7 sets, daily range): BP systolic 14–140; BP diastolic 67–83
[2020-08-28] MEDS: ceFAZolin sod 1 GM in D5W 55 ML IVP SCH ×3 (03:27→19:54)
[2020-08-28] MEDS: D5NS 1,000 ML IV SCH (06:37)
[2020-08-28 07:19] LABS: HEMATOCRIT 33.9 % (42.0-52.0); HEMOGLOBIN 12.5 G/DL (14.2-18.0); MEAN CORPUSCULAR VOLUME 89 FL (80-99); PLATELET COUNT 114 K/UL (150-450); RED BLOOD COUNT 3.79 M/UL (4.70-6.10); RED CELL DISTRIBUTION WIDTH 13.2 % (11.6-14.8); WHITE BLOOD COUNT 5.9 K/UL (4.8-10.8)
[2020-08-28 08:16] LABS: ALBUMIN 2.3 G/DL (3.4-5.0); ALBUMIN/GLOBULIN RATIO 0.6 (1.0-2.7); BILIRUBIN,TOTAL 1.1 MG/DL (0.2-1.0); CALCIUM 7.9 MG/DL (8.5-10.1); CREATININE 1.2 MG/DL (0.55-1.30); POTASSIUM 3.6 MMOL/L (3.5-5.1)
[2020-08-28 08:22] LABS: BILIRUBIN,DIRECT 0.6 MG/DL (0.0-0.3)
[2020-08-28] MEDS: Aspirin EC 81mg tab ORAL SCH (08:53)
[2020-08-28] MEDS: Tamsulosin 0.4mg cap ORAL SCH ×3 (08:53→18:00)
[2020-08-28] MEDS: Potassium Phosphate 15mm/250ml 250 ML IVPB SCH ×2 (09:39→14:57)
--- NOTE | 2020-08-28 15:10 | Internal Med Progress Note ---
Subjective Date of Service: Aug 28, 2020 Physician Name ZimmerShai Attending Physician Andrés Rothman MD Current Medications Medications (Trade) Dose Ordered Sig/Fabrizio Route PRN Reason Start Time Stop Time Status Last Admin Dose Admin Acetaminophen (Tylenol) 650 mg Q6H PRN ORAL Temp >100.5 08/27/20 12:45 09/26/20 12:44 Acetaminophen/ Codeine Phosphate (Tylenol #3) 1 tab Q4H PRN ORAL Moderate Pain (Pain Scale 4-6) 08/27/20 12:45 09/03/20 12:44 Amlodipine Besylate (Norvasc) 5 mg DAILY ORAL 08/19/20 09:00 09/18/20 08:59 08/26/20 08:54 Aspirin (Ecotrin) 81 mg DAILY ORAL 08/21/20 09:00 10/05/20 08:59 08/26/20 08:54 Cefazolin Sodium 1 gm/Dextrose 55 ml @ 110 mls/hr Q8H IVP 08/27/20 20:00 09/03/20 19:59 08/28/20 11:42 Chlorhexidine Gluconate (Jennifer-Hex 2%) 1 applic DAILY@2000 TOPIC 08/23/20 20:00 11/21/20 19:59 08/27/20 20:19 Dextrose (Dextrose 50%) 25 ml Q30M PRN IV Hypoglycemia 08/18/20 15:00 11/16/20 14:59 Dextrose (Dextrose 50%) 50 ml Q30M PRN IV Hypoglycemia 08/18/20 15:00 11/16/20 14:59 Dextrose/Sodium Chloride 1,000 ml @ 50 mls/hr Q20H IV 08/27/20 10:30 09/26/20 10:29 08/28/20 06:37 Haloperidol Lactate (Haldol) 5 mg Q6H PRN IM agitation 08/18/20 15:00 10/02/20 14:59 08/22/20 06:27 Morphine Sulfate (Morphine Sulfate) 2 mg Q1H PRN IVP Severe Pain (Pain Scale 7-10) 08/27/20 12:45 09/03/20 12:44 Ondansetron HCl (Zofran) 4 mg Q6H PRN IVP Nausea & Vomiting 08/27/20 12:45 09/26/20 12:44 Potassium Phosphate 250 ml @ 62.5 mls/hr Q4H IVPB 08/28/20 10:00 08/28/20 17:59 08/28/20 14:57 Potassium Chloride (K-Dur) 40 meq TWICE A DAY ORAL 08/20/20 18:30 11/18/20 18:29 08/27/20 17:14 Tamsulosin HCl (Flomax) 0.4 mg BID ORAL 08/18/20 18:00 09/18/20 08:59 08/27/20 17:14 Allergies: Coded Allergies: No Known Allergies (Unverified , 07/22/20) ROS Limited/Unobtainable: Yes Subjective 75 YO M admitted with acute renal failure. Now multiple microembolic brain infarcts. Cover for Int med-DR Rothman. Step Down. Frequent periods of asystole lasting 4-5 sec. S/P pacemaker implantation 08/27/20 Objective Last Vital Signs Date Time Temp Pulse Resp B/P (MAP) Pulse Ox O2 Delivery O2 Flow Rate FiO2 08/28/20 12:00 70 08/28/20 11:56 98.1 20 124/71 (88) 98 08/28/20 09:00 Room Air Room Air 08/27/20 13:15 6 Laboratory Tests Test 08/28/20 06:35 White Blood Count 5.9 K/UL (4.8-10.8) Red Blood Count 3.79 M/UL (4.70-6.10) L Hemoglobin 12.5 G/DL (14.2-18.0) L Hematocrit 33.9 % (42.0-52.0) L Mean Corpuscular Volume 89 FL (80-99) Mean Corpuscular Hemoglobin 33.0 PG (27.0-31.0) H Mean Corpuscular Hemoglobin Concent 36.9 G/DL (32.0-36.0) H Red Cell Distribution Width 13.2 % (11.6-14.8) Platelet Count 114 K/UL (150-450) L Mean Platelet Volume 9.5 FL (6.5-10.1) Neutrophils (%) (Auto) % (45.0-75.0) Lymphocytes (%) (Auto) % (20.0-45.0) Monocytes (%) (Auto) % (1.0-10.0) Eosinophils (%) (Auto) % (0.0-3.0) Basophils (%) (Auto) % (0.0-2.0) Differential Total Cells Counted 100 Neutrophils % (Manual) 56 % (45-75) Lymphocytes % (Manual) 16 % (20-45) L Monocytes % (Manual) 25 % (1-10) H Eosinophils % (Manual) 3 % (0-3) Basophils % (Manual) 0 % (0-2) Band Neutrophils 0 % (0-8) Platelet Estimate Decreased L Platelet Morphology Normal Red Blood Cell Morphology Normal Sodium Level 137 MMOL/L (136-145) Potassium Level 3.6 MMOL/L (3.5-5.1) Chloride Level 105 MMOL/L (98-107) Carbon Dioxide Level 24 MMOL/L (21-32) Anion Gap 8 mmol/L (5-15) Blood Urea Nitrogen 9 mg/dL (7-18) Creatinine 1.2 MG/DL (0.55-1.30) Estimat Glomerular Filtration Rate 59.2 mL/min (>60) Glucose Level 100 MG/DL (74-106) Uric Acid 4.6 MG/DL (2.6-7.2) Calcium Level 7.9 MG/DL (8.5-10.1) L Phosphorus Level 2.0 MG/DL (2.5-4.9) L Magnesium Level 2.1 MG/DL (1.8-2.4) Total Bilirubin 1.1 MG/DL (0.2-1.0) H Direct Bilirubin 0.6 MG/DL (0.0-0.3) H Aspartate Amino Transf (AST/SGOT) 28 U/L (15-37) Alanine Aminotransferase (ALT/SGPT) 43 U/L (12-78) Alkaline Phosphatase 114 U/L (46-116) C-Reactive Protein, Quantitative 11.6 mg/dL (0.00-0.90) H Pro-B-Type Natriuretic Peptide 293 pg/mL (0-125) H Total Protein 6.4 G/DL (6.4-8.2) Albumin 2.3 G/DL (3.4-5.0) L Globulin 4.1 g/dL Albumin/Globulin Ratio 0.6 (1.0-2.7) L Intake and Output 08/27/20 08/28/20 19:00 07:00 Intake Total 1076.72 ml 710 ml Output Total 400 ml Balance 676.72 ml 710 ml Intake IV Total 1076.72 ml 710 ml Output Urine Total 400 ml Objective Objective General: No acute distress, awake and responsive, confused. HEENT: NCAT, sclera anicteric, PERRL, EOMI. Neck: Supple, no significant jugular venous distention, Lungs: Good inspiratory effort,clear to auscultation bilaterally, no Wheeze or Rales. Heart: Regular rate and rhythm, normal S1/S2, no murmur. Abdomen: soft, nontender, nondistended. Normoactive bowel sounds, obesity. / Rectal: Refused and deferred. Extremities: No Cyanosis , clubbing or edema. Neuro: A&O x 1, Able to move all extremities Skin: warm, no rashes or lesions Assessment/Plan Assessment/Plan Assessment/Plan Assessment/Plan Assessment/Plan ASSESSMENT: 1. Acute kidney injury on chronic renal insufficiency. 2. Dehydration. 3. Abnormal liver function. 4. History of schizophrenia disorder. 5. BPH. 6. Failure to thrive in adult. 7. Hypertension. 8. Impaired mobility. 9. History of compression fracture of the thoracic as well as lumbar spine due to the old trauma. 10. Depression. 11. Possible urinary tract infection. 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 Sick sinus syndrome with frequent episodes of asystole 15. probable paroxysmal atrial fibrillation PLAN: Telemetry status Monitor laboratory. IV hydration. Code status: Full Code. DVT prophylaxis: heparin subcutaneous. Dr. Gelacio Mata from Nephrology Dr. Byrne from Pulmonary Critical Care. failed bedside swallow study Neuro=Dr Whitfield Await Bubble Echocardiogram cardiology=Dr Crespo will require pacemaker per cardiology-soc work/bioethics to gain consent S/P Pacemaker implantation 08/27/20-see cardiology note Shai Zimmer MD Aug 28, 2020 15:10
--- NOTE | 2020-08-28 15:21 | Cardiac Electrophysiology PN ---
Assessment/Plan Assessment/Plan 1. Multiple small microembolic infarcts. Rule out paroxysmal atrial fibrillation or paradoxical embolus. Echo with bubble study showed no PFO. Neurology FU in progress 2. SSS with multiple more than 4.2 second pauses including 5.2 second pause. Not on Dig, BB or Ca tay while awake at 5 pm This is also suggestive of PAF as cause of his CVA. Dopamine DCed S/P DDD [facility] pacer ikplant 08/27/20. Interrogated and showed Nl Fx. CXR No Ptx 3. Acute renal failure. Creatinine is improving with hydration. 4. Agitation and dementia. 5. History of lumbar vertebral compression fracture. 6. Hypernatremia. DW Dr. Rothman and Dr. Mata Subjective Subjective Had 4.2 second asystole while awake on 08/22 at around 5 pm on 08/23 and 5.2 second pause on 08/23 off on any AVN tay Dopamine drip DCed after DDD [facility] PPM implant yesterday Interrogated today and showed Nl Fx Objective Last 24 Hour Vital Signs Date Time Temp Pulse Resp B/P (MAP) Pulse Ox O2 Delivery O2 Flow Rate FiO2 08/28/20 12:00 70 08/28/20 11:56 98.1 70 20 124/71 (88) 98 08/28/20 09:00 Room Air Room Air 08/28/20 08:00 77 08/28/20 08:00 98.2 82 20 129/67 (87) 97 08/28/20 04:00 Room Air Room Air 08/28/20 04:00 81 08/28/20 04:00 99.2 82 24 139/83 (101) 98 08/28/20 00:00 Room Air Room Air 08/28/20 00:00 99.3 87 24 140/74 (96) 99 08/28/20 00:00 93 08/27/20 20:00 98.6 76 24 120/71 (87) 99 08/27/20 20:00 74 08/27/20 20:00 Room Air Room Air 08/27/20 16:00 98.0 84 20 114/93 (100) 99 08/27/20 15:38 61 Intake and Output 08/27/20 08/28/20 19:00 07:00 Intake Total 1076.72 ml 710 ml Output Total 400 ml Balance 676.72 ml 710 ml Intake IV Total 1076.72 ml 710 ml Output Urine Total 400 ml Laboratory Tests Test 08/28/20 06:35 White Blood Count 5.9 K/UL (4.8-10.8) Red Blood Count 3.79 M/UL (4.70-6.10) L Hemoglobin 12.5 G/DL (14.2-18.0) L Hematocrit 33.9 % (42.0-52.0) L Mean Corpuscular Volume 89 FL (80-99) Mean Corpuscular Hemoglobin 33.0 PG (27.0-31.0) H Mean Corpuscular Hemoglobin Concent 36.9 G/DL (32.0-36.0) H Red Cell Distribution Width 13.2 % (11.6-14.8) Platelet Count 114 K/UL (150-450) L Mean Platelet Volume 9.5 FL (6.5-10.1) Neutrophils (%) (Auto) % (45.0-75.0) Lymphocytes (%) (Auto) % (20.0-45.0) Monocytes (%) (Auto) % (1.0-10.0) Eosinophils (%) (Auto) % (0.0-3.0) Basophils (%) (Auto) % (0.0-2.0) Differential Total Cells Counted 100 Neutrophils % (Manual) 56 % (45-75) Lymphocytes % (Manual) 16 % (20-45) L Monocytes % (Manual) 25 % (1-10) H Eosinophils % (Manual) 3 % (0-3) Basophils % (Manual) 0 % (0-2) Band Neutrophils 0 % (0-8) Platelet Estimate Decreased L Platelet Morphology Normal Red Blood Cell Morphology Normal Sodium Level 137 MMOL/L (136-145) Potassium Level 3.6 MMOL/L (3.5-5.1) Chloride Level 105 MMOL/L (98-107) Carbon Dioxide Level 24 MMOL/L (21-32) Anion Gap 8 mmol/L (5-15) Blood Urea Nitrogen 9 mg/dL (7-18) Creatinine 1.2 MG/DL (0.55-1.30) Estimat Glomerular Filtration Rate 59.2 mL/min (>60) Glucose Level 100 MG/DL (74-106) Uric Acid 4.6 MG/DL (2.6-7.2) Calcium Level 7.9 MG/DL (8.5-10.1) L Phosphorus Level 2.0 MG/DL (2.5-4.9) L Magnesium Level 2.1 MG/DL (1.8-2.4) Total Bilirubin 1.1 MG/DL (0.2-1.0) H Direct Bilirubin 0.6 MG/DL (0.0-0.3) H Aspartate Amino Transf (AST/SGOT) 28 U/L (15-37) Alanine Aminotransferase (ALT/SGPT) 43 U/L (12-78) Alkaline Phosphatase 114 U/L (46-116) C-Reactive Protein, Quantitative 11.6 mg/dL (0.00-0.90) H Pro-B-Type Natriuretic Peptide 293 pg/mL (0-125) H Total Protein 6.4 G/DL (6.4-8.2) Albumin 2.3 G/DL (3.4-5.0) L Globulin 4.1 g/dL Albumin/Globulin Ratio 0.6 (1.0-2.7) L Objective HEAD AND NECK: No JVD. LUNGS: Coarse rhonchi. CARDIOVASCULAR: Regular S1 and S2 with no gallop.Pacer left subclavian with no hematoma ABDOMEN: Soft. EXTREMITIES: No pitting edema. Carlos Eduardo Crespo MD Aug 28, 2020 15:21
--- NOTE | 2020-08-28 15:39 | Nephrology Progress Note ---
Assessment/Plan Problem List: (1) ANGI (acute kidney injury) (2) Renal failure (ARF), acute on chronic (3) Dehydration (4) UTI (urinary tract infection) (5) BPH (benign prostatic hyperplasia) (6) Agitation due to dementia Assessment Acute renal failure Dehydration, leading to free water deficit and hypernatremia History of hypertension BPH History of lumbar vertebral compression fracture History of hypertension History of depression agitation Plan August 28: Labs reviewed. Abnormal electrolytes addressed. Had pacemaker yesterday. Continue current management. Continue to monitor electrolytes and renal parameters. August 27: No labs drawn today. Patient due for pacemaker placement. IV fluid changed to D5 normal saline. Continue to monitor electrolyte renal parameters. Discussed with RN. August 26: Labs reviewed. Stable renal parameters. Due for pacemaker tomorrow. Discussed with . Discussed with Yanira. August 25: Labs reviewed. Stable renal parameters. Variable heart rate. Continues to have pauses. Due for pacemaker. August 24: Labs reviewed. Abnormal electrolyte addressed. Main issue is heart rate pauses. Patient requires pacemaker. Discussed with the band ripsaw operator. Continue current management. August 23: Labs reviewed. Abnormal electrolytes addressed. Patient had a 4- second pause yesterday and another 5-second pause today. Discussed with Dr. Crespo. Patient due transfer to ICU. Pacemaker insertion is being entertained. August 22: Labs reviewed. Abnormal electrolytes addressed. Renal parameters improving. Continue per current management. August 21: Labs reviewed. Electrolytes improving. Abnormal electrolytes addressed. Continue per current management. Lipitor and allopurinol held due to abnormal liver function tests August 20: Labs reviewed. Serum sodium declining. Abnormal electrolytes addressed. Continue to hydrate and monitor renal parameters. 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 August 19: Patient periodically agitated and pulls the IV out. On D5W 100 cc an hour. Serum creatinine lowering. Will increase IV fluid to [address] evaluation pending. Labs and medications reviewed. August 18: IV hydration Urine studies and culture Monitor renal parameters Pain medication as needed Psych management as needed Per orders Subjective ROS Limited/Unobtainable: Yes Objective Objective Last 24 Hour Vital Signs Date Time Temp Pulse Resp B/P (MAP) Pulse Ox O2 Delivery O2 Flow Rate FiO2 08/28/20 12:00 70 08/28/20 11:56 98.1 70 20 124/71 (88) 98 08/28/20 09:00 Room Air Room Air 08/28/20 08:00 77 08/28/20 08:00 98.2 82 20 129/67 (87) 97 08/28/20 04:00 Room Air Room Air 08/28/20 04:00 81 08/28/20 04:00 99.2 82 24 139/83 (101) 98 08/28/20 00:00 Room Air Room Air 08/28/20 00:00 99.3 87 24 140/74 (96) 99 08/28/20 00:00 93 08/27/20 20:00 98.6 76 24 120/71 (87) 99 08/27/20 20:00 74 08/27/20 20:00 Room Air Room Air 08/27/20 16:00 98.0 84 20 114/93 (100) 99 08/27/20 15:38 61 Intake and Output 08/27/20 08/28/20 19:00 07:00 Intake Total 1076.72 ml 710 ml Output Total 400 ml Balance 676.72 ml 710 ml Intake IV Total 1076.72 ml 710 ml Output Urine Total 400 ml Current Medications Medications (Trade) Dose Ordered Sig/Fabrizio Route PRN Reason Start Time Stop Time Status Last Admin Dose Admin Acetaminophen (Tylenol) 650 mg Q6H PRN ORAL Temp >100.5 08/27/20 12:45 09/26/20 12:44 Acetaminophen/ Codeine Phosphate (Tylenol #3) 1 tab Q4H PRN ORAL Moderate Pain (Pain Scale 4-6) 08/27/20 12:45 09/03/20 12:44 Amlodipine Besylate (Norvasc) 5 mg DAILY ORAL 08/19/20 09:00 09/18/20 08:59 08/26/20 08:54 Aspirin (Ecotrin) 81 mg DAILY ORAL 08/21/20 09:00 10/05/20 08:59 08/26/20 08:54 Cefazolin Sodium 1 gm/Dextrose 55 ml @ 110 mls/hr Q8H IVP 08/27/20 20:00 09/03/20 19:59 08/28/20 11:42 Chlorhexidine Gluconate (Jennifer-Hex 2%) 1 applic DAILY@2000 TOPIC 08/23/20 20:00 11/21/20 19:59 08/27/20 20:19 Dextrose (Dextrose 50%) 25 ml Q30M PRN IV Hypoglycemia 08/18/20 15:00 11/16/20 14:59 Dextrose (Dextrose 50%) 50 ml Q30M PRN IV Hypoglycemia 08/18/20 15:00 11/16/20 14:59 Dextrose/Sodium Chloride 1,000 ml @ 50 mls/hr Q20H IV 08/27/20 10:30 09/26/20 10:29 08/28/20 06:37 Haloperidol Lactate (Haldol) 5 mg Q6H PRN IM agitation 08/18/20 15:00 10/02/20 14:59 08/22/20 06:27 Morphine Sulfate (Morphine Sulfate) 2 mg Q1H PRN IVP Severe Pain (Pain Scale 7-10) 08/27/20 12:45 09/03/20 12:44 Ondansetron HCl (Zofran) 4 mg Q6H PRN IVP Nausea & Vomiting 08/27/20 12:45 09/26/20 12:44 Potassium Phosphate 250 ml @ 62.5 mls/hr Q4H IVPB 08/28/20 10:00 08/28/20 17:59 08/28/20 14:57 Potassium Chloride (K-Dur) 40 meq TWICE A DAY ORAL 08/20/20 18:30 11/18/20 18:29 08/27/20 17:14 Tamsulosin HCl (Flomax) 0.4 mg BID ORAL 08/18/20 18:00 09/18/20 08:59 08/27/20 17:14 Laboratory Tests 08/28/20 06:35: White Blood Count 5.9, Red Blood Count 3.79L, Hemoglobin 12.5L, Hematocrit 33.9L , Mean Corpuscular Volume 89, Mean Corpuscular Hemoglobin 33.0H, Mean Corpuscular Hemoglobin Concent 36.9H, Red Cell Distribution Width 13.2, Platelet Count 114L, Mean Platelet Volume 9.5, Neutrophils (%) (Auto) , Lymphocytes (%) (Auto) , Monocytes (%) (Auto) , Eosinophils (%) (Auto) , Basophils (%) (Auto) , Differential Total Cells Counted 100, Neutrophils % (Manual) 56, Lymphocytes % (Manual) 16L, Monocytes % (Manual) 25H, Eosinophils % (Manual) 3, Basophils % (Manual) 0, Band Neutrophils 0, Platelet Estimate DecreasedL, Platelet Mo rphology Normal, Red Blood Cell Morphology Normal, Sodium Level 137, Potassium Level 3.6, Chloride Level 105, Carbon Dioxide Level 24, Anion Gap 8, Blood Urea Nitrogen 9, Creatinine 1.2, Estimat Glomerular Filtration Rate 59.2, Glucose Level 100, Uric Acid 4.6, Calcium Level 7.9L, Phosphorus Level 2.0L, Magnesium Level 2.1, Total Bilirubin 1.1H, Direct Bilirubin 0.6H, Aspartate Amino Transf (AST/SGOT) 28, Alanine Aminotransferase (ALT/SGPT) 43, Alkaline Phosphatase 114, C-Reactive Protein, Quantitative 11.6H, Pro-B-Type Natriuretic Peptide 293H, Total Protein 6.4, Albumin 2.3L, Globulin 4.1, Albumin/Globulin Ratio 0.6L Height (Feet): 6 Height (Inches): 0.00 Weight (Pounds): 180 General Appearance: no apparent distress, lethargic Cardiovascular: normal rate Respiratory/Chest: decreased breath sounds Abdomen: distended Gelacio Mata MD Aug 28, 2020 15:39
--- NOTE | 2020-08-28 18:39 | Pulmonology Progress Note ---
Subjective ROS Limited/Unobtainable: Yes Constitutional: Reports: no symptoms HEENT: Repors: no symptoms Allergies: Coded Allergies: No Known Allergies (Unverified , 07/22/20) All Systems: reviewed and negative except above Objective Last 24 Hour Vital Signs Date Time Temp Pulse Resp B/P (MAP) Pulse Ox O2 Delivery O2 Flow Rate FiO2 08/28/20 16:00 98.1 71 20 131/82 (98) 98 08/28/20 16:00 70 08/28/20 12:00 70 08/28/20 11:56 98.1 70 20 124/71 (88) 98 08/28/20 09:00 Room Air Room Air 08/28/20 08:00 77 08/28/20 08:00 98.2 82 20 129/67 (87) 97 08/28/20 04:00 Room Air Room Air 08/28/20 04:00 81 08/28/20 04:00 99.2 82 24 139/83 (101) 98 08/28/20 00:00 Room Air Room Air 08/28/20 00:00 99.3 87 24 140/74 (96) 99 08/28/20 00:00 93 08/27/20 20:00 98.6 76 24 120/71 (87) 99 08/27/20 20:00 74 08/27/20 20:00 Room Air Room Air Intake and Output 08/27/20 08/28/20 19:00 07:00 Intake Total 1076.72 ml 710 ml Output Total 400 ml Balance 676.72 ml 710 ml Intake IV Total 1076.72 ml 710 ml Output Urine Total 400 ml General Appearance: no acute distress, other - elderly male, not verbally responsive HEENT: normocephalic, atraumatic Respiratory: chest wall non-tender, lungs clear, no respiratory distress Cardiovascular: normal rate - tele with SR 1 st degree AV block Abdomen: soft, non tender, non distended Extremities: no edema, pedal pulses normal Skin: no rash 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 grossly normal, other - left hemiparesis, nonverbal, w/draws to tactile stimuli Lymphatic: no neck adenopathy, no groin adenopathy Laboratory Tests 08/28/20 06:35: White Blood Count 5.9, Red Blood Count 3.79L, Hemoglobin 12.5L, Hematocrit 33.9L , Mean Corpuscular Volume 89, Mean Corpuscular Hemoglobin 33.0H, Mean Corpuscular Hemoglobin Concent 36.9H, Red Cell Distribution Width 13.2, Platelet Count 114L, Mean Platelet Volume 9.5, Neutrophils (%) (Auto) , Lymphocytes (%) (Auto) , Monocytes (%) (Auto) , Eosinophils (%) (Auto) , Basophils (%) (Auto) , Differential Total Cells Counted 100, Neutrophils % (Manual) 56, Lymphocytes % (Manual) 16L, Monocytes % (Manual) 25H, Eosinophils % (Manual) 3, Basophils % (Manual) 0, Band Neutrophils 0, Platelet Estimate DecreasedL, Platelet Morphology Normal, Red Blood Cell Morphology Normal, Sodium Level 137, Potassium Level 3.6, Chloride Level 105, Carbon Dioxide Level 24, Anion Gap 8, Blood Urea Nitrogen 9, Creatinine 1.2, Estimat Glomerular Filtration Rate 59.2, Glucose Level 100, Uric Acid 4.6, Calcium Level 7.9L, Phosphorus Level 2.0L, Magnesium Level 2.1, Total Bilirubin 1.1H, Direct Bilirubin 0.6H, Aspartate Amino Transf (AST/SGOT) 28, Alanine Aminotransferase (ALT/SGPT) 43, Alkaline Phosphatase 114, C-Reactive Protein, Quantitative 11.6H, Pro-B-Type Natriuretic Peptide 293H, Total Protein 6.4, Albumin 2.3L, Globulin 4.1, Albumin/Globulin Ratio 0.6L Current Medications Medications (Trade) Dose Ordered Sig/Fabrizio Route PRN Reason Start Time Stop Time Status Last Admin Dose Admin Acetaminophen (Tylenol) 650 mg Q6H PRN ORAL Temp >100.5 08/27/20 12:45 09/26/20 12:44 Acetaminophen/ Codeine Phosphate (Tylenol #3) 1 tab Q4H PRN ORAL Moderate Pain (Pain Scale 4-6) 08/27/20 12:45 09/03/20 12:44 Amlodipine Besylate (Norvasc) 5 mg DAILY ORAL 08/19/20 09:00 09/18/20 08:59 08/26/20 08:54 Aspirin (Ecotrin) 81 mg DAILY ORAL 08/21/20 09:00 10/05/20 08:59 08/26/20 08:54 Cefazolin Sodium 1 gm/Dextrose 55 ml @ 110 mls/hr Q8H IVP 08/27/20 20:00 09/03/20 19:59 08/28/20 11:42 Chlorhexidine Gluconate (Jennifer-Hex 2%) 1 applic DAILY@2000 TOPIC 08/23/20 20:00 11/21/20 19:59 08/27/20 20:19 Dextrose (Dextrose 50%) 25 ml Q30M PRN IV Hypoglycemia 08/18/20 15:00 11/16/20 14:59 Dextrose (Dextrose 50%) 50 ml Q30M PRN IV Hypoglycemia 08/18/20 15:00 11/16/20 14:59 Dextrose/Sodium Chloride 1,000 ml @ 50 mls/hr Q20H IV 08/27/20 10:30 09/26/20 10:29 08/28/20 06:37 Haloperidol Lactate (Haldol) 5 mg Q6H PRN IM agitation 08/18/20 15:00 10/02/20 14:59 08/22/20 06:27 Morphine Sulfate (Morphine Sulfate) 2 mg Q1H PRN IVP Severe Pain (Pain Scale 7-10) 08/27/20 12:45 09/03/20 12:44 Ondansetron HCl (Zofran) 4 mg Q6H PRN IVP Nausea & Vomiting 08/27/20 12:45 09/26/20 12:44 Potassium Chloride (K-Dur) 40 meq TWICE A DAY ORAL 08/20/20 18:30 11/18/20 18:29 08/27/20 17:14 Tamsulosin HCl (Flomax) 0.4 mg BID ORAL 08/18/20 18:00 09/18/20 08:59 08/27/20 17:14 Assessment/Plan Problems: (1) Sick sinus syndrome (2) Hypernatremia (3) Renal failure (ARF), acute on chronic (4) HTN (hypertension) (5) Failure to thrive in adult (6) BPH (benign prostatic hyperplasia) (7) Schizoaffective disorder Assessment/Plan all reviewed no new complains looks comfortable all reviewed check electrolytes daily f/u renal recommendations renal function getting better Jaclyn Byrne MD Aug 28, 2020 18:39
[2020-08-28] MEDS: Dyna-Hex 2% Top Sol 2oz TOPIC SCH (19:53)
[2020-08-28] MEDS ORDERED: Tubing IV Secondary IV ONE (22:20)
[2020-08-28] MEDS ORDERED: NS 275ml ONE (22:20)
[2020-08-29] VITALS: BP 136/84
[2020-08-29] MEDS: D5NS 1,000 ML IV SCH ×2 (02:30→21:34)
[2020-08-29 04:00] VITALS: BP 137/63
[2020-08-29] MEDS: ceFAZolin sod 1 GM in D5W 55 ML IVP SCH ×3 (04:24→21:21)
[2020-08-29 06:57] LABS: CALCIUM 7.7 MG/DL (8.5-10.1); CREATININE 1.4 MG/DL (0.55-1.30); POTASSIUM 3.6 MMOL/L (3.5-5.1)
[2020-08-29 07:02] LABS: HEMATOCRIT 33.9 % (42.0-52.0); HEMOGLOBIN 12.2 G/DL (14.2-18.0); MEAN CORPUSCULAR VOLUME 91 FL (80-99); PLATELET COUNT 123 K/UL (150-450); RED BLOOD COUNT 3.72 M/UL (4.70-6.10); RED CELL DISTRIBUTION WIDTH 13.1 % (11.6-14.8); WHITE BLOOD COUNT 5.1 K/UL (4.8-10.8)
[2020-08-29 08:00] VITALS: BP 134/85
[2020-08-29] MEDS: Aspirin EC 81mg tab ORAL SCH (09:00)
[2020-08-29] MEDS: Tamsulosin 0.4mg cap ORAL SCH ×2 (09:00→17:47)
[2020-08-29 12:36] VITALS: BP 104/54
--- NOTE | 2020-08-29 13:29 | Nephrology Progress Note ---
Assessment/Plan Problem List: (1) ANGI (acute kidney injury) (2) Renal failure (ARF), acute on chronic (3) Dehydration (4) UTI (urinary tract infection) (5) BPH (benign prostatic hyperplasia) (6) Agitation due to dementia Assessment Acute renal failure Dehydration, leading to free water deficit and hypernatremia History of hypertension BPH History of lumbar vertebral compression fracture History of hypertension History of depression agitation Plan August 29: Labs reviewed. Patient transferred to telemetry. Stable from renal standpoint of view. August 28: Labs reviewed. Abnormal electrolytes addressed. Had pacemaker yesterday. Continue current management. Continue to monitor electrolytes and renal parameters. August 27: No labs drawn today. Patient due for pacemaker placement. IV fluid changed to D5 normal saline. Continue to monitor electrolyte renal parameters. Discussed with RN. August 26: Labs reviewed. Stable renal parameters. Due for pacemaker tomorrow. Discussed with . Discussed with Yanira. August 25: Labs reviewed. Stable renal parameters. Variable heart rate. Continues to have pauses. Due for pacemaker. August 24: Labs reviewed. Abnormal electrolyte addressed. Main issue is heart rate pauses. Patient requires pacemaker. Discussed with the tile picker. Continue current management. August 23: Labs reviewed. Abnormal electrolytes addressed. Patient had a 4- second pause yesterday and another 5-second pause today. Discussed with Dr. Crespo. Patient due transfer to ICU. Pacemaker insertion is being entertained. August 22: Labs reviewed. Abnormal electrolytes addressed. Renal parameters improving. Continue per current management. August 21: Labs reviewed. Electrolytes improving. Abnormal electrolytes addressed. Continue per current management. Lipitor and allopurinol held due to abnormal liver function tests August 20: Labs reviewed. Serum sodium declining. Abnormal electrolytes addressed. Continue to hydrate and monitor renal parameters. 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 August 19: Patient periodically agitated and pulls the IV out. On D5W 100 cc an hour. Serum creatinine lowering. Will increase IV fluid to [address] evaluation pending. Labs and medications reviewed. August 18: IV hydration Urine studies and culture Monitor renal parameters Pain medication as needed Psych management as needed Per orders Subjective ROS Limited/Unobtainable: No Constitutional: Reports: malaise Objective Objective Last 24 Hour Vital Signs Date Time Temp Pulse Resp B/P (MAP) Pulse Ox O2 Delivery O2 Flow Rate FiO2 08/29/20 12:36 99.1 83 20 104/54 (71) 98 08/29/20 09:00 Room Air Room Air 08/29/20 08:00 71 08/29/20 08:00 98.4 79 18 134/85 (101) 98 08/29/20 04:00 75 08/29/20 04:00 98.0 83 21 137/63 (87) 95 08/29/20 00:00 97.8 85 22 136/84 (101) 98 08/29/20 00:00 78 08/28/20 21:00 Room Air Room Air 08/28/20 20:01 140/80 (100) 08/28/20 20:00 97.5 79 20 14/80 (58) 97 08/28/20 20:00 83 08/28/20 16:00 98.1 71 20 131/82 (98) 98 08/28/20 16:00 70 Intake and Output 08/28/20 08/29/20 19:00 07:00 Intake Total 692.5 ml Balance 692.5 ml Intake IV Total 692.5 ml Current Medications Medications (Trade) Dose Ordered Sig/Fabrizio Route PRN Reason Start Time Stop Time Status Last Admin Dose Admin Acetaminophen (Tylenol) 650 mg Q6H PRN ORAL Temp >100.5 08/27/20 12:45 09/26/20 12:44 Acetaminophen/ Codeine Phosphate (Tylenol #3) 1 tab Q4H PRN ORAL Moderate Pain (Pain Scale 4-6) 08/27/20 12:45 09/03/20 12:44 Amlodipine Besylate (Norvasc) 5 mg DAILY ORAL 08/19/20 09:00 09/18/20 08:59 08/26/20 08:54 Aspirin (Ecotrin) 81 mg DAILY ORAL 08/21/20 09:00 10/05/20 08:59 08/26/20 08:54 Cefazolin Sodium 1 gm/Dextrose 55 ml @ 110 mls/hr Q8H IVP 08/27/20 20:00 09/03/20 19:59 08/29/20 11:30 Chlorhexidine Gluconate (Jennifer-Hex 2%) 1 applic DAILY@2000 TOPIC 08/23/20 20:00 11/21/20 19:59 08/28/20 19:53 Dextrose (Dextrose 50%) 25 ml Q30M PRN IV Hypoglycemia 08/18/20 15:00 11/16/20 14:59 Dextrose (Dextrose 50%) 50 ml Q30M PRN IV Hypoglycemia 08/18/20 15:00 11/16/20 14:59 Dextrose/Sodium Chloride 1,000 ml @ 50 mls/hr Q20H IV 08/27/20 10:30 09/26/20 10:29 08/29/20 02:30 Haloperidol Lactate (Haldol) 5 mg Q6H PRN IM agitation 08/18/20 15:00 10/02/20 14:59 08/22/20 06:27 Morphine Sulfate (Morphine Sulfate) 2 mg Q1H PRN IVP Severe Pain (Pain Scale 7-10) 08/27/20 12:45 09/03/20 12:44 Ondansetron HCl (Zofran) 4 mg Q6H PRN IVP Nausea & Vomiting 08/27/20 12:45 09/26/20 12:44 Potassium Chloride (K-Dur) 40 meq TWICE A DAY ORAL 08/20/20 18:30 11/18/20 18:29 08/27/20 17:14 Tamsulosin HCl (Flomax) 0.4 mg BID ORAL 08/18/20 18:00 09/18/20 08:59 08/27/20 17:14 Laboratory Tests 08/29/20 06:00: White Blood Count 5.1, Red Blood Count 3.72L, Hemoglobin 12.2L, Hematocrit 33.9L , Mean Corpuscular Volume 91, Mean Corpuscular Hemoglobin 32.8H, Mean Corpuscular Hemoglobin Concent 36.0, Red Cell Distribution Width 13.1, Platelet Count 123L, Mean Platelet Volume 8.8, Neutrophils (%) (Auto) , Lymphocytes (%) (Auto) , Monocytes (%) (Auto) , Eosinophils (%) (Auto) , Basophils (%) (Auto) , Differential Total Cells Counted 100, Neutrophils % (Manual) 57, Lymphocytes % (Manual) 18L, Monocytes % (Manual) 23H, Eosinophils % (Manual) 2, Basophils % (Manual) 0, Band Neutrophils 0, Platelet Estimate DecreasedL, Platelet Morphol ogy Normal, Red Blood Cell Morphology Normal, Sodium Level 138, Potassium Level 3.6, Chloride Level 105, Carbon Dioxide Level 27, Anion Gap 6, Blood Urea Nitrogen 7, Creatinine 1.4H, Estimat Glomerular Filtration Rate 49.5, Glucose Level 149H, Calcium Level 7.7L Height (Feet): 6 Height (Inches): 0.00 Weight (Pounds): 180 General Appearance: no apparent distress Cardiovascular: normal rate Respiratory/Chest: decreased breath sounds Abdomen: soft Gelacio Mata MD Aug 29, 2020 13:29
--- NOTE | 2020-08-29 15:32 | Cardiac Electrophysiology PN ---
Assessment/Plan Assessment/Plan 1. Multiple small microembolic infarcts. Rule out paroxysmal atrial fibrillation or paradoxical embolus. Echo with bubble study showed no PFO. Neurology FU in progress 2. SSS with multiple more than 4.2 second pauses including 5.2 second pause. Not on Dig, BB or Ca tay while awake at 5 pm This is also suggestive of PAF as cause of his CVA. Dopamine DCed S/P DDD [facility] Sam pacer ikplant 08/27/20. Interrogation showed Nl Fx. CXR No Ptx 3. Acute renal failure. Creatinine is improving with hydration. 4. Agitation and dementia. 5. History of lumbar vertebral compression fracture. 6. Hypernatremia. DW Dr. Rothman and Dr. Mata Subjective Subjective Had 4.2 second asystole while awake on 08/22 at around 5 pm on 08/23 and 5.2 second pause on 08/23 off on any AVN tay Dopamine drip DCed after DDD [facility] Sam PPM implant on 08/27/20 Interrogated pacer and showed Nl Fx Objective Last 24 Hour Vital Signs Date Time Temp Pulse Resp B/P (MAP) Pulse Ox O2 Delivery O2 Flow Rate FiO2 08/29/20 12:36 99.1 83 20 104/54 (71) 98 08/29/20 12:00 68 08/29/20 09:00 Room Air Room Air 08/29/20 08:00 71 08/29/20 08:00 98.4 79 18 134/85 (101) 98 08/29/20 04:00 75 08/29/20 04:00 98.0 83 21 137/63 (87) 95 08/29/20 00:00 97.8 85 22 136/84 (101) 98 08/29/20 00:00 78 08/28/20 21:00 Room Air Room Air 08/28/20 20:01 140/80 (100) 08/28/20 20:00 97.5 79 20 14/80 (58) 97 08/28/20 20:00 83 08/28/20 16:00 98.1 71 20 131/82 (98) 98 08/28/20 16:00 70 Intake and Output 08/28/20 08/29/20 19:00 07:00 Intake Total 692.5 ml Balance 692.5 ml Intake IV Total 692.5 ml Laboratory Tests Test 08/29/20 06:00 White Blood Count 5.1 K/UL (4.8-10.8) Red Blood Count 3.72 M/UL (4.70-6.10) L Hemoglobin 12.2 G/DL (14.2-18.0) L Hematocrit 33.9 % (42.0-52.0) L Mean Corpuscular Volume 91 FL (80-99) Mean Corpuscular Hemoglobin 32.8 PG (27.0-31.0) H Mean Corpuscular Hemoglobin Concent 36.0 G/DL (32.0-36.0) Red Cell Distribution Width 13.1 % (11.6-14.8) Platelet Count 123 K/UL (150-450) L Mean Platelet Volume 8.8 FL (6.5-10.1) Neutrophils (%) (Auto) % (45.0-75.0) Lymphocytes (%) (Auto) % (20.0-45.0) Monocytes (%) (Auto) % (1.0-10.0) Eosinophils (%) (Auto) % (0.0-3.0) Basophils (%) (Auto) % (0.0-2.0) Differential Total Cells Counted 100 Neutrophils % (Manual) 57 % (45-75) Lymphocytes % (Manual) 18 % (20-45) L Monocytes % (Manual) 23 % (1-10) H Eosinophils % (Manual) 2 % (0-3) Basophils % (Manual) 0 % (0-2) Band Neutrophils 0 % (0-8) Platelet Estimate Decreased L Platelet Morphology Normal Red Blood Cell Morphology Normal Sodium Level 138 MMOL/L (136-145) Potassium Level 3.6 MMOL/L (3.5-5.1) Chloride Level 105 MMOL/L (98-107) Carbon Dioxide Level 27 MMOL/L (21-32) Anion Gap 6 mmol/L (5-15) Blood Urea Nitrogen 7 mg/dL (7-18) Creatinine 1.4 MG/DL (0.55-1.30) H Estimat Glomerular Filtration Rate 49.5 mL/min (>60) Glucose Level 149 MG/DL (74-106) H Calcium Level 7.7 MG/DL (8.5-10.1) L Objective HEAD AND NECK: No JVD. LUNGS: Coarse rhonchi. CARDIOVASCULAR: Regular S1 and S2 with no gallop.Pacer left subclavian with no hematoma ABDOMEN: Soft. EXTREMITIES: No pitting edema. Carlos Eduardo Crespo MD Aug 29, 2020 15:32
[2020-08-29 15:57] VITALS: BP 135/85
--- NOTE | 2020-08-29 16:05 | Internal Med Progress Note ---
Subjective Date of Service: Aug 29, 2020 Physician Name MeshaShai Attending Physician Andrés Rothman MD Current Medications Medications (Trade) Dose Ordered Sig/Fabrizio Route PRN Reason Start Time Stop Time Status Last Admin Dose Admin Acetaminophen (Tylenol) 650 mg Q6H PRN ORAL Temp >100.5 08/27/20 12:45 09/26/20 12:44 Acetaminophen/ Codeine Phosphate (Tylenol #3) 1 tab Q4H PRN ORAL Moderate Pain (Pain Scale 4-6) 08/27/20 12:45 09/03/20 12:44 Amlodipine Besylate (Norvasc) 5 mg DAILY ORAL 08/19/20 09:00 09/18/20 08:59 08/26/20 08:54 Aspirin (Ecotrin) 81 mg DAILY ORAL 08/21/20 09:00 10/05/20 08:59 08/26/20 08:54 Cefazolin Sodium 1 gm/Dextrose 55 ml @ 110 mls/hr Q8H IVP 08/27/20 20:00 09/03/20 19:59 08/29/20 11:30 Chlorhexidine Gluconate (Jennifer-Hex 2%) 1 applic DAILY@2000 TOPIC 08/23/20 20:00 11/21/20 19:59 08/28/20 19:53 Dextrose (Dextrose 50%) 25 ml Q30M PRN IV Hypoglycemia 08/18/20 15:00 11/16/20 14:59 Dextrose (Dextrose 50%) 50 ml Q30M PRN IV Hypoglycemia 08/18/20 15:00 11/16/20 14:59 Dextrose/Sodium Chloride 1,000 ml @ 50 mls/hr Q20H IV 08/27/20 10:30 09/26/20 10:29 08/29/20 02:30 Haloperidol Lactate (Haldol) 5 mg Q6H PRN IM agitation 08/18/20 15:00 10/02/20 14:59 08/22/20 06:27 Morphine Sulfate (Morphine Sulfate) 2 mg Q1H PRN IVP Severe Pain (Pain Scale 7-10) 08/27/20 12:45 09/03/20 12:44 Ondansetron HCl (Zofran) 4 mg Q6H PRN IVP Nausea & Vomiting 08/27/20 12:45 09/26/20 12:44 Potassium Chloride (K-Dur) 40 meq TWICE A DAY ORAL 08/20/20 18:30 11/18/20 18:29 08/27/20 17:14 Tamsulosin HCl (Flomax) 0.4 mg BID ORAL 08/18/20 18:00 09/18/20 08:59 08/27/20 17:14 Allergies: Coded Allergies: No Known Allergies (Unverified , 07/22/20) ROS Limited/Unobtainable: Yes Subjective 75 YO M admitted with acute renal failure. Now multiple microembolic brain infarcts. Cover for Int med-DR Rothman. Step Down. Frequent periods of asystole lasting 4-5 sec. S/P pacemaker implantation 08/27/20 Objective Last Vital Signs Date Time Temp Pulse Resp B/P (MAP) Pulse Ox O2 Delivery O2 Flow Rate FiO2 08/29/20 15:57 97.9 71 20 135/85 (102) 94 08/29/20 09:00 Room Air Room Air 08/27/20 13:15 6 Laboratory Tests Test 08/29/20 06:00 White Blood Count 5.1 K/UL (4.8-10.8) Red Blood Count 3.72 M/UL (4.70-6.10) L Hemoglobin 12.2 G/DL (14.2-18.0) L Hematocrit 33.9 % (42.0-52.0) L Mean Corpuscular Volume 91 FL (80-99) Mean Corpuscular Hemoglobin 32.8 PG (27.0-31.0) H Mean Corpuscular Hemoglobin Concent 36.0 G/DL (32.0-36.0) Red Cell Distribution Width 13.1 % (11.6-14.8) Platelet Count 123 K/UL (150-450) L Mean Platelet Volume 8.8 FL (6.5-10.1) Neutrophils (%) (Auto) % (45.0-75.0) Lymphocytes (%) (Auto) % (20.0-45.0) Monocytes (%) (Auto) % (1.0-10.0) Eosinophils (%) (Auto) % (0.0-3.0) Basophils (%) (Auto) % (0.0-2.0) Differential Total Cells Counted 100 Neutrophils % (Manual) 57 % (45-75) Lymphocytes % (Manual) 18 % (20-45) L Monocytes % (Manual) 23 % (1-10) H Eosinophils % (Manual) 2 % (0-3) Basophils % (Manual) 0 % (0-2) Band Neutrophils 0 % (0-8) Platelet Estimate Decreased L Platelet Morphology Normal Red Blood Cell Morphology Normal Sodium Level 138 MMOL/L (136-145) Potassium Level 3.6 MMOL/L (3.5-5.1) Chloride Level 105 MMOL/L (98-107) Carbon Dioxide Level 27 MMOL/L (21-32) Anion Gap 6 mmol/L (5-15) Blood Urea Nitrogen 7 mg/dL (7-18) Creatinine 1.4 MG/DL (0.55-1.30) H Estimat Glomerular Filtration Rate 49.5 mL/min (>60) Glucose Level 149 MG/DL (74-106) H Calcium Level 7.7 MG/DL (8.5-10.1) L Intake and Output 08/28/20 08/29/20 19:00 07:00 Intake Total 692.5 ml Balance 692.5 ml Intake IV Total 692.5 ml Objective Objective General: No acute distress, awake and responsive, confused. HEENT: NCAT, sclera anicteric, PERRL, EOMI. Neck: Supple, no significant jugular venous distention, Lungs: Good inspiratory effort,clear to auscultation bilaterally, no Wheeze or Rales. Heart: Regular rate and rhythm, normal S1/S2, no murmur. Abdomen: soft, nontender, nondistended. Normoactive bowel sounds, obesity. / Rectal: Refused and deferred. Extremities: No Cyanosis , clubbing or edema. Neuro: A&O x 1, Able to move all extremities Skin: warm, no rashes or lesions Assessment/Plan Assessment/Plan Assessment/Plan Assessment/Plan Assessment/Plan ASSESSMENT: 1. Acute kidney injury on chronic renal insufficiency. 2. Dehydration. 3. Abnormal liver function. 4. History of schizophrenia disorder. 5. BPH. 6. Failure to thrive in adult. 7. Hypertension. 8. Impaired mobility. 9. History of compression fracture of the thoracic as well as lumbar spine due to the old trauma. 10. Depression. 11. Possible urinary tract infection. 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 Sick sinus syndrome with frequent episodes of asystole 15. probable paroxysmal atrial fibrillation PLAN: Telemetry status Monitor laboratory. IV hydration. Code status: Full Code. DVT prophylaxis: heparin subcutaneous. Dr. Gelacio Mata from Nephrology Dr. Byrne from Pulmonary Critical Care. failed bedside swallow study Neuro=Dr Whitfield Await Bubble Echocardiogram cardiology=Dr Crespo S/P Pacemaker implantation 08/27/20-see cardiology note Shai Zimmer MD Aug 29, 2020 16:05
--- NOTE | 2020-08-29 16:54 | Pulmonology Progress Note ---
Subjective ROS Limited/Unobtainable: Yes Constitutional: Reports: no symptoms HEENT: Repors: no symptoms Allergies: Coded Allergies: No Known Allergies (Unverified , 07/22/20) All Systems: reviewed and negative except above Objective Last 24 Hour Vital Signs Date Time Temp Pulse Resp B/P (MAP) Pulse Ox O2 Delivery O2 Flow Rate FiO2 08/29/20 15:57 97.9 71 20 135/85 (102) 94 08/29/20 12:36 99.1 83 20 104/54 (71) 98 08/29/20 12:00 68 08/29/20 09:00 Room Air Room Air 08/29/20 08:00 71 08/29/20 08:00 98.4 79 18 134/85 (101) 98 08/29/20 04:00 75 08/29/20 04:00 98.0 83 21 137/63 (87) 95 08/29/20 00:00 97.8 85 22 136/84 (101) 98 08/29/20 00:00 78 08/28/20 21:00 Room Air Room Air 08/28/20 20:01 140/80 (100) 08/28/20 20:00 97.5 79 20 14/80 (58) 97 08/28/20 20:00 83 Intake and Output 08/28/20 08/29/20 19:00 07:00 Intake Total 692.5 ml Balance 692.5 ml Intake IV Total 692.5 ml General Appearance: no acute distress, other - elderly male, not verbally responsive HEENT: normocephalic, atraumatic Respiratory: chest wall non-tender, lungs clear, no respiratory distress Cardiovascular: normal rate - tele with SR 1 st degree AV block Abdomen: soft, non tender, non distended Extremities: no edema, pedal pulses normal Skin: no rash 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 normal, other - left hemiparesis, nonverbal, w/draws to tactile stimuli Lymphatic: no neck adenopathy, no groin adenopathy Laboratory Tests 08/29/20 06:00: White Blood Count 5.1, Red Blood Count 3.72L, Hemoglobin 12.2L, Hematocrit 33.9L , Mean Corpuscular Volume 91, Mean Corpuscular Hemoglobin 32.8H, Mean Corpuscular Hemoglobin Concent 36.0, Red Cell Distribution Width 13.1, Platelet Count 123L, Mean Platelet Volume 8.8, Neutrophils (%) (Auto) , Lymphocytes (%) (Auto) , Monocytes (%) (Auto) , Eosinophils (%) (Auto) , Basophils (%) (Auto) , Differential Total Cells Counted 100, Neutrophils % (Manual) 57, Lymphocytes % (Manual) 18L, Monocytes % (Manual) 23H, Eosinophils % (Manual) 2, Basophils % (Manual) 0, Band Neutrophils 0, Platelet Estimate DecreasedL, Platelet Morphology Normal, Red Blood Cell Morphology Normal, Sodium Level 138, Potassium Level 3.6, Chloride Level 105, Carbon Dioxide Level 27, Anion Gap 6, Blood Urea Nitrogen 7, Creatinine 1.4H, Estimat Glomerular Filtration Rate 49.5, Glucose Level 149H, Calcium Level 7.7L Current Medications Medications (Trade) Dose Ordered Sig/Fabrizio Route PRN Reason Start Time Stop Time Status Last Admin Dose Admin Acetaminophen (Tylenol) 650 mg Q6H PRN ORAL Temp >100.5 08/27/20 12:45 09/26/20 12:44 Acetaminophen/ Codeine Phosphate (Tylenol #3) 1 tab Q4H PRN ORAL Moderate Pain (Pain Scale 4-6) 08/27/20 12:45 09/03/20 12:44 Amlodipine Besylate (Norvasc) 5 mg DAILY ORAL 08/19/20 09:00 09/18/20 08:59 08/26/20 08:54 Aspirin (Ecotrin) 81 mg DAILY ORAL 08/21/20 09:00 10/05/20 08:59 08/26/20 08:54 Cefazolin Sodium 1 gm/Dextrose 55 ml @ 110 mls/hr Q8H IVP 08/27/20 20:00 09/03/20 19:59 08/29/20 11:30 Chlorhexidine Gluconate (Jennifer-Hex 2%) 1 applic DAILY@2000 TOPIC 08/23/20 20:00 11/21/20 19:59 08/28/20 19:53 Dextrose (Dextrose 50%) 25 ml Q30M PRN IV Hypoglycemia 08/18/20 15:00 11/16/20 14:59 Dextrose (Dextrose 50%) 50 ml Q30M PRN IV Hypoglycemia 08/18/20 15:00 11/16/20 14:59 Dextrose/Sodium Chloride 1,000 ml @ 50 mls/hr Q20H IV 08/27/20 10:30 09/26/20 10:29 08/29/20 02:30 Haloperidol Lactate (Haldol) 5 mg Q6H PRN IM agitation 08/18/20 15:00 10/02/20 14:59 08/22/20 06:27 Morphine Sulfate (Morphine Sulfate) 2 mg Q1H PRN IVP Severe Pain (Pain Scale 7-10) 08/27/20 12:45 09/03/20 12:44 Ondansetron HCl (Zofran) 4 mg Q6H PRN IVP Nausea & Vomiting 08/27/20 12:45 09/26/20 12:44 Potassium Chloride (K-Dur) 40 meq TWICE A DAY ORAL 08/20/20 18:30 11/18/20 18:29 08/27/20 17:14 Tamsulosin HCl (Flomax) 0.4 mg BID ORAL 08/18/20 18:00 09/18/20 08:59 08/27/20 17:14 Assessment/Plan Problems: (1) Sick sinus syndrome (2) Hypernatremia (3) Renal failure (ARF), acute on chronic (4) HTN (hypertension) (5) Failure to thrive in adult (6) BPH (benign prostatic hyperplasia) (7) Schizoaffective disorder Assessment/Plan all reviewed no new complains looks comfortable all reviewed check electrolytes daily f/u renal recommendations renal function getting better Jaclyn Byrne MD Aug 29, 2020 16:54
--- NOTE | 2020-08-29 19:21 | Neurology Progress Note ---
Interim History Interim History ROS Limited/Unobtainable: Yes Interim History no new deficits, stable Objective Physical Exam Last Vital Signs Date Time Temp Pulse Resp B/P (MAP) Pulse Ox O2 Delivery O2 Flow Rate FiO2 08/29/20 16:00 74 08/29/20 15:57 97.9 20 135/85 (102) 94 08/29/20 09:00 Room Air Room Air 08/27/20 13:15 6 Laboratory Tests Test 08/29/20 06:00 White Blood Count 5.1 K/UL (4.8-10.8) Red Blood Count 3.72 M/UL (4.70-6.10) L Hemoglobin 12.2 G/DL (14.2-18.0) L Hematocrit 33.9 % (42.0-52.0) L Mean Corpuscular Volume 91 FL (80-99) Mean Corpuscular Hemoglobin 32.8 PG (27.0-31.0) H Mean Corpuscular Hemoglobin Concent 36.0 G/DL (32.0-36.0) Red Cell Distribution Width 13.1 % (11.6-14.8) Platelet Count 123 K/UL (150-450) L Mean Platelet Volume 8.8 FL (6.5-10.1) Neutrophils (%) (Auto) % (45.0-75.0) Lymphocytes (%) (Auto) % (20.0-45.0) Monocytes (%) (Auto) % (1.0-10.0) Eosinophils (%) (Auto) % (0.0-3.0) Basophils (%) (Auto) % (0.0-2.0) Differential Total Cells Counted 100 Neutrophils % (Manual) 57 % (45-75) Lymphocytes % (Manual) 18 % (20-45) L Monocytes % (Manual) 23 % (1-10) H Eosinophils % (Manual) 2 % (0-3) Basophils % (Manual) 0 % (0-2) Band Neutrophils 0 % (0-8) Platelet Estimate Decreased L Platelet Morphology Normal Red Blood Cell Morphology Normal Sodium Level 138 MMOL/L (136-145) Potassium Level 3.6 MMOL/L (3.5-5.1) Chloride Level 105 MMOL/L (98-107) Carbon Dioxide Level 27 MMOL/L (21-32) Anion Gap 6 mmol/L (5-15) Blood Urea Nitrogen 7 mg/dL (7-18) Creatinine 1.4 MG/DL (0.55-1.30) H Estimat Glomerular Filtration Rate 49.5 mL/min (>60) Glucose Level 149 MG/DL (74-106) H Calcium Level 7.7 MG/DL (8.5-10.1) L General: well developed Neurologic Exam Objective somnolent, open eyes, non verbal, withdraws to pain Left hemiparesis Impression/Recommendations Problems: (1) Hypernatremia (2) Embolic cerebral infarction (3) Sick sinus syndrome (4) Compression fracture of L3 vertebra (5) Intractable pain (6) Social isolation (7) Impaired mobility and ADLs (8) UTI (urinary tract infection) (9) Suicidal ideations (10) HTN (hypertension) (11) Dehydration (12) Failure to thrive in adult (13) Renal failure (ARF), acute on chronic (14) ANGI (acute kidney injury) (15) BPH (benign prostatic hyperplasia) (16) Agitation due to dementia (17) Schizoaffective disorder Diagnostic Impression Acute ischemic stroke bilateral hemispheres, anterior and posterior circulation high concern for embolic cont asa daily statin daily Carotid US no significant athero pt ot consider aru vs snf Natalio Whitfield MD Aug 29, 2020 19:21
[2020-08-29 20:00] VITALS: BP 138/76
[2020-08-29] MEDS: Dyna-Hex 2% Top Sol 2oz TOPIC SCH (21:21)
[2020-08-30] VITALS: BP 143/77
[2020-08-30] MEDS: ceFAZolin sod 1 GM in D5W 55 ML IVP SCH ×2 (03:39→12:03)
[2020-08-30 04:00] VITALS: BP 143/75
[2020-08-30 08:00] VITALS: BP 155/75
[2020-08-30 08:51] LABS: HEMOGLOBIN 11.9 G/DL (14.2-18.0); MEAN CORPUSCULAR VOLUME 90 FL (80-99); PLATELET COUNT 109 K/UL (150-450); RED BLOOD COUNT 3.67 M/UL (4.70-6.10); RED CELL DISTRIBUTION WIDTH 14.4 % (11.6-14.8); WHITE BLOOD COUNT 5.1 K/UL (4.8-10.8)
[2020-08-30 08:53] LABS: BASOPHILS % (AUTO) 0.9 % (0.0-2.0); EOSINOPHILS % (AUTO) 4.3 % (0.0-3.0); LYMPHOCYTES % (AUTO) 14.8 % (20.0-45.0); MONOCYTES % (AUTO) 27.2 % (1.0-10.0); NEUTROPHILS % (AUTO) 52.8 % (45.0-75.0)
[2020-08-30 09:01] LABS: ALANINE AMINOTRANSFERASE 26 U/L (12-78); ALBUMIN 2.3 G/DL (3.4-5.0); ALBUMIN/GLOBULIN RATIO 0.6 (1.0-2.7); ALKALINE PHOSPHATASE 97 U/L (46-116); ANION GAP 7 mmol/L (5-15); ASPARTATE AMINO TRANSFERASE 32 U/L (15-37); BILIRUBIN,TOTAL 0.9 MG/DL (0.2-1.0); BLOOD UREA NITROGEN 5 mg/dL (7-18); CALCIUM 7.6 MG/DL (8.5-10.1); CARBON DIOXIDE 26 MMOL/L (21-32); CHLORIDE 109 MMOL/L (98-107); CREATININE 1.1 MG/DL (0.55-1.30); PHOSPHORUS 1.6 MG/DL (2.5-4.9); POTASSIUM 3.4 MMOL/L (3.5-5.1); SODIUM 142 MMOL/L (136-145)
[2020-08-30] MEDS: Aspirin EC 81mg tab ORAL SCH (09:09)
[2020-08-30] MEDS: Tamsulosin 0.4mg cap ORAL SCH (09:10)
--- NOTE | 2020-08-30 10:27 | Nephrology Progress Note ---
Assessment/Plan Problem List: (1) ANGI (acute kidney injury) (2) Renal failure (ARF), acute on chronic (3) Dehydration (4) UTI (urinary tract infection) (5) BPH (benign prostatic hyperplasia) (6) Agitation due to dementia Assessment Acute renal failure Dehydration, leading to free water deficit and hypernatremia History of hypertension BPH History of lumbar vertebral compression fracture History of hypertension History of depression agitation Plan August 30: Labs reviewed. Potassium and phosphorus supplement IV ordered. Continue per consultants. Stable from renal standpoint view. August 29: Labs reviewed. Patient transferred to telemetry. Stable from renal standpoint of view. August 28: Labs reviewed. Abnormal electrolytes addressed. Had pacemaker yesterday. Continue current management. Continue to monitor electrolytes and renal parameters. August 27: No labs drawn today. Patient due for pacemaker placement. IV flu id changed to D5 normal saline. Continue to monitor electrolyte renal parameters. Discussed with RN. August 26: Labs reviewed. Stable renal parameters. Due for pacemaker tomorrow. Discussed with . Discussed with Yanira. August 25: Labs reviewed. Stable renal parameters. Variable heart rate. Continues to have pauses. Due for pacemaker. August 24: Labs reviewed. Abnormal electrolyte addressed. Main issue is heart rate pauses. Patient requires pacemaker. Discussed with the cardio logist. Continue current management. August 23: Labs reviewed. Abnormal electrolytes addressed. Patient had a 4- second pause yesterday and another 5-second pause today. Discussed with Dr. Crespo. Patient due transfer to ICU. Pacemaker insertion is being entertained. August 22: Labs reviewed. Abnormal electrolytes addressed. Renal parameters improving. Continue per current management. August 21: Labs reviewed. Electrolytes improving. Abnormal electrolytes addressed. Continue per current management. Lipitor and allopurinol held due to abnormal liver function tests August 20: Labs reviewed. Serum sodium declining. Abnormal electrolytes addressed. Continue to hydrate and monitor renal parameters. 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 August 19: Patient periodically agitated and pulls the IV out. On D5W 100 cc an hour. Serum creatinine lowering. Will increase IV fluid to [address] evaluation pending. Labs and medications reviewed. August 18: IV hydration Urine studies and culture Monitor renal parameters Pain medication as needed Psych management as needed Per orders Subjective ROS Limited/Unobtainable: No Constitutional: Reports: malaise Objective Objective Last 24 Hour Vital Signs Date Time Temp Pulse Resp B/P (MAP) Pulse Ox O2 Delivery O2 Flow Rate FiO2 08/30/20 09:09 73 155/75 08/30/20 07:52 74 08/30/20 04:00 77 08/30/20 04:00 97.2 77 22 143/75 (97) 96 08/30/20 00:00 74 08/30/20 00:00 98.4 74 20 143/77 (99) 98 08/29/20 21:00 Room Air Room Air 08/29/20 20:00 99.4 78 22 138/76 (96) 97 08/29/20 20:00 81 08/29/20 16:00 74 08/29/20 15:57 97.9 71 20 135/85 (102) 94 08/29/20 12:36 99.1 83 20 104/54 (71) 98 08/29/20 12:00 68 Intake and Output 08/29/20 08/30/20 19:00 07:00 Intake Total 250 ml Output Total 400 ml Balance 250 ml -400 ml IV Total 250 ml Output Urine Total 400 ml # Voids 2 # Bowel Movements 1 1 Current Medications Medications (Trade) Dose Ordered Sig/Fabrizio Route PRN Reason Start Time Stop Time Status Last Admin Dose Admin Acetaminophen (Tylenol) 650 mg Q6H PRN ORAL Temp >100.5 08/27/20 12:45 09/26/20 12:44 Acetaminophen/ Codeine Phosphate (Tylenol #3) 1 tab Q4H PRN ORAL Moderate Pain (Pain Scale 4-6) 08/27/20 12:45 09/03/20 12:44 Amlodipine Besylate (Norvasc) 5 mg DAILY ORAL 08/19/20 09:00 09/18/20 08:59 08/30/20 09:09 Aspirin (Ecotrin) 81 mg DAILY ORAL 08/21/20 09:00 10/05/20 08:59 08/30/20 09:09 Cefazolin Sodium 1 gm/Dextrose 55 ml @ 110 mls/hr Q8H IVP 08/27/20 20:00 09/03/20 19:59 08/30/20 03:39 Chlorhexidine Gluconate (Jennifer-Hex 2%) 1 applic DAILY@2000 TOPIC 08/23/20 20:00 11/21/20 19:59 08/29/20 21:21 Dextrose (Dextrose 50%) 25 ml Q30M PRN IV Hypoglycemia 08/18/20 15:00 11/16/20 14:59 Dextrose (Dextrose 50%) 50 ml Q30M PRN IV Hypoglycemia 08/18/20 15:00 11/16/20 14:59 Dextrose/Sodium Chloride 1,000 ml @ 50 mls/hr Q20H IV 08/27/20 10:30 09/26/20 10:29 08/29/20 21:34 Haloperidol Lactate (Haldol) 5 mg Q6H PRN IM agitation 08/18/20 15:00 10/02/20 14:59 08/22/20 06:27 Morphine Sulfate (Morphine Sulfate) 2 mg Q1H PRN IVP Severe Pain (Pain Scale 7-10) 08/27/20 12:45 09/03/20 12:44 Ondansetron HCl (Zofran) 4 mg Q6H PRN IVP Nausea & Vomiting 08/27/20 12:45 09/26/20 12:44 Potassium Chloride (K-Dur) 40 meq TWICE A DAY ORAL 08/20/20 18:30 11/18/20 18:29 08/30/20 09:10 Tamsulosin HCl (Flomax) 0.4 mg BID ORAL 08/18/20 18:00 09/18/20 08:59 08/30/20 09:10 Laboratory Tests 08/30/20 00:00: White Blood Count 5.1, Red Blood Count 3.67L, Hemoglobin 11.9L, Hematocrit 33.0L , Mean Corpuscular Volume 90, Mean Corpuscular Hemoglobin 32.4H, Mean Corpuscular Hemoglobin Concent 36.0, Red Cell Distribution Width 14.4, Platelet Count 109L, Mean Platelet Volume 8.9, Neutrophils (%) (Auto) 52.8, Lymphocytes (%) (Auto) 14.8L, Monocytes (%) (Auto) 27.2H, Eosinophils (%) (Auto) 4.3H, Basophils (%) (Auto) 0.9, Neutrophils % (Manual) [Pending], Lymphocytes % (Manual) [Pending], Platelet Estimate [Pending], Platelet Morphology [Pending], Sodium Level 142, Potassium Level 3.4L, Chloride Level 109H, Carbon Dioxide Level 26, Anion Gap 7, Blood Urea Nitrogen 5L, Creatinine 1.1, Estimat Glomerular Filtration Rate > 60, Glucose Level 93, Calcium Level 7.6L, Phosphor us Level 1.6L, Magnesium Level 2.0, Total Bilirubin 0.9, Aspartate Amino Transf (AST/SGOT) 32, Alanine Aminotransferase (ALT/SGPT) 26, Alkaline Phosphatase 97, Total Protein 6.3L, Albumin 2.3L, Globulin 4.0, Albumin/Globulin Ratio 0.6L Height (Feet): 6 Height (Inches): 0.00 Weight (Pounds): 180 General Appearance: no apparent distress Cardiovascular: normal rate Respiratory/Chest: decreased breath sounds Abdomen: distended Gelacio Mata MD Aug 30, 2020 10:27
[2020-08-30] MEDS ORDERED: Potassium Phosphate 15mm/250ml 250 ML IVPB SCH (11:30)
[2020-08-30 12:00] VITALS: BP 130/80
--- NOTE | 2020-08-30 14:20 | Cardiac Electrophysiology PN ---
Assessment/Plan Assessment/Plan 1. Multiple small microembolic infarcts. Rule out paroxysmal atrial fibrillation or paradoxical embolus. Echo with bubble study showed no PFO. Neurology FU in progress 2. SSS with multiple more than 4.2 second pauses including 5.2 second pause. Not on Dig, BB or Ca tay while awake at 5 pm This is also suggestive of PAF as cause of his CVA. Dopamine DCed S/P DDD [facility] Sam pacer implant on 08/27/20. Interrogation showed Nl Fx. CXR No Ptx 3. Acute renal failure. Creatinine is improving with hydration. 4. Agitation and dementia. 5. History of lumbar vertebral compression fracture. 6. Hypernatremia. DW RN Subjective Subjective Had 4.2 second asystole while awake on 08/22 at around 5 pm on 08/23 and 5.2 second pause on 08/23 off on any AVN tay Off Dopamine drip since had [facility] Sam PPM implant on 08/27/20 Interrogated pacer and showed Nl Fx Objective Last 24 Hour Vital Signs Date Time Temp Pulse Resp B/P (MAP) Pulse Ox O2 Delivery O2 Flow Rate FiO2 08/30/20 12:00 77 08/30/20 12:00 97.9 79 20 130/80 (97) 96 08/30/20 09:09 73 155/75 08/30/20 09:00 Room Air Room Air 08/30/20 08:00 99.1 73 20 155/75 (101) 95 08/30/20 07:52 74 08/30/20 04:00 77 08/30/20 04:00 97.2 77 22 143/75 (97) 96 08/30/20 00:00 74 08/30/20 00:00 98.4 74 20 143/77 (99) 98 08/29/20 21:00 Room Air Room Air 08/29/20 20:00 99.4 78 22 138/76 (96) 97 08/29/20 20:00 81 08/29/20 16:00 74 08/29/20 15:57 97.9 71 20 135/85 (102) 94 Intake and Output 08/29/20 08/30/20 19:00 07:00 Intake Total 250 ml Output Total 400 ml Balance 250 ml -400 ml IV Total 250 ml Output Urine Total 400 ml # Voids 2 # Bowel Movements 1 1 Laboratory Tests Test 08/30/20 00:00 White Blood Count 5.1 K/UL (4.8-10.8) Red Blood Count 3.67 M/UL (4.70-6.10) L Hemoglobin 11.9 G/DL (14.2-18.0) L Hematocrit 33.0 % (42.0-52.0) L Mean Corpuscular Volume 90 FL (80-99) Mean Corpuscular Hemoglobin 32.4 PG (27.0-31.0) H Mean Corpuscular Hemoglobin Concent 36.0 G/DL (32.0-36.0) Red Cell Distribution Width 14.4 % (11.6-14.8) Platelet Count 109 K/UL (150-450) L Mean Platelet Volume 8.9 FL (6.5-10.1) Neutrophils (%) (Auto) 52.8 % (45.0-75.0) Lymphocytes (%) (Auto) 14.8 % (20.0-45.0) L Monocytes (%) (Auto) 27.2 % (1.0-10.0) H Eosinophils (%) (Auto) 4.3 % (0.0-3.0) H Basophils (%) (Auto) 0.9 % (0.0-2.0) Differential Total Cells Counted 100 Neutrophils % (Manual) 54 % (45-75) Lymphocytes % (Manual) 18 % (20-45) L Monocytes % (Manual) 26 % (1-10) H Eosinophils % (Manual) 2 % (0-3) Basophils % (Manual) 0 % (0-2) Band Neutrophils 0 % (0-8) Platelet Estimate Decreased L Platelet Morphology Normal Red Blood Cell Morphology Normal Sodium Level 142 MMOL/L (136-145) Potassium Level 3.4 MMOL/L (3.5-5.1) L Chloride Level 109 MMOL/L (98-107) H Carbon Dioxide Level 26 MMOL/L (21-32) Anion Gap 7 mmol/L (5-15) Blood Urea Nitrogen 5 mg/dL (7-18) L Creatinine 1.1 MG/DL (0.55-1.30) Estimat Glomerular Filtration Rate > 60 mL/min (>60) Glucose Level 93 MG/DL (74-106) Calcium Level 7.6 MG/DL (8.5-10.1) L Phosphorus Level 1.6 MG/DL (2.5-4.9) L Magnesium Level 2.0 MG/DL (1.8-2.4) Total Bilirubin 0.9 MG/DL (0.2-1.0) Aspartate Amino Transf (AST/SGOT) 32 U/L (15-37) Alanine Aminotransferase (ALT/SGPT) 26 U/L (12-78) Alkaline Phosphatase 97 U/L (46-116) Total Protein 6.3 G/DL (6.4-8.2) L Albumin 2.3 G/DL (3.4-5.0) L Globulin 4.0 g/dL Albumin/Globulin Ratio 0.6 (1.0-2.7) L Objective HEAD AND NECK: No JVD. LUNGS: Coarse rhonchi. CARDIOVASCULAR: Regular S1 and S2 with no gallop.Pacer left subclavian with no hematoma ABDOMEN: Soft. EXTREMITIES: No pitting edema. Carlos Eduardo Crespo MD Aug 30, 2020 14:20
[2020-08-30] MEDS ORDERED: NS 275ml ONE (15:41)
[2020-08-30] MEDS ORDERED: CEFAZOLIN SODIUM1 G1 IV (16:18)
--- NOTE | 2020-08-30 16:48 | Pulmonology Progress Note ---
Subjective ROS Limited/Unobtainable: No Constitutional: Reports: no symptoms HEENT: Repors: no symptoms Allergies: Coded Allergies: No Known Allergies (Unverified , 07/22/20) All Systems: reviewed and negative except above Objective Last 24 Hour Vital Signs Date Time Temp Pulse Resp B/P (MAP) Pulse Ox O2 Delivery O2 Flow Rate FiO2 08/30/20 12:00 77 08/30/20 12:00 97.9 79 20 130/80 (97) 96 08/30/20 09:09 73 155/75 08/30/20 09:00 Room Air Room Air 08/30/20 08:00 99.1 73 20 155/75 (101) 95 08/30/20 07:52 74 08/30/20 04:00 77 08/30/20 04:00 97.2 77 22 143/75 (97) 96 08/30/20 00:00 74 08/30/20 00:00 98.4 74 20 143/77 (99) 98 08/29/20 21:00 Room Air Room Air 08/29/20 20:00 99.4 78 22 138/76 (96) 97 08/29/20 20:00 81 Intake and Output 08/29/20 08/30/20 19:00 07:00 Intake Total 250 ml Output Total 400 ml Balance 250 ml -400 ml IV Total 250 ml Output Urine Total 400 ml # Voids 2 # Bowel Movements 1 1 General Appearance: no acute distress, other - elderly male, not verbally responsive HEENT: normocephalic, atraumatic Respiratory: chest wall non-tender, lungs clear, no respiratory distress Cardiovascular: normal rate - tele with SR 1 st degree AV block Abdomen: soft, non tender, non distended Extremities: no edema, pedal pulses normal Skin: no rash 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, no pronator, other - left hemiparesis, nonverbal, w/draws to tactile stimuli Lymphatic: no neck adenopathy, no groin adenopathy Laboratory Tests 08/30/20 00:00: White Blood Count 5.1, Red Blood Count 3.67L, Hemoglobin 11.9L, Hematocrit 33.0L , Mean Corpuscular Volume 90, Mean Corpuscular Hemoglobin 32.4H, Mean Corpuscular Hemoglobin Concent 36.0, Red Cell Distribution Width 14.4, Platelet Count 109L, Mean Platelet Volume 8.9, Neutrophils (%) (Auto) 52.8, Lymphocytes (%) (Auto) 14.8L, Monocytes (%) (Auto) 27.2H, Eosinophils (%) (Auto) 4.3H, Basophils (%) (Auto) 0.9, Differential Total Cells Counted 100, Neutrophils % (Manual) 54, Lymphocytes % (Manual) 18L, Monocytes % (Manual) 26H, Eosinophils % (Manual) 2, Basophils % (Manual) 0, Band Neutrophils 0, Platelet Estimate DecreasedL, Platelet Morphology Normal, Red Blood Cell Morphology Normal, Sodium Level 142, Potassium Level 3.4L, Chloride Level 109H, Carbon Dioxide Level 26, Anion Gap 7, Blood Urea Nitrogen 5L, Creatinine 1.1, Estimat Glomerular Filtration Rate > 60, Glucose Level 93, Calcium Level 7.6L, Phosphorus Level 1.6L, Magnesium Level 2.0, Total Bilirubin 0.9, Aspartate Amino Transf (AST/SGOT) 32, Alanine Aminotransferase (ALT/SGPT) 26, Alkaline Phosphatase 97, Total Protein 6.3L, Albumin 2.3L, Globulin 4.0, Albumin/Globulin Ratio 0.6L Assessment/Plan Problems: (1) Sick sinus syndrome (2) Hypernatremia (3) Renal failure (ARF), acute on chronic (4) HTN (hypertension) (5) Failure to thrive in adult (6) BPH (benign prostatic hyperplasia) (7) Schizoaffective disorder Assessment/Plan all reviewed no new complains looks comfortable all reviewed check electrolytes daily f/u renal recommendations renal function getting better Jaclyn Byrne MD Aug 30, 2020 16:48
--- NOTE | 2020-08-30 21:34 | Neurology Progress Note ---
Interim History Interim History ROS Limited/Unobtainable: No Interim History ok for placement Objective Physical Exam Last Vital Signs Date Time Temp Pulse Resp B/P (MAP) Pulse Ox O2 Delivery O2 Flow Rate FiO2 08/30/20 12:00 77 08/30/20 12:00 97.9 20 130/80 (97) 96 08/30/20 09:00 Room Air Room Air 08/27/20 13:15 6 Laboratory Tests Test 08/30/20 00:00 White Blood Count 5.1 K/UL (4.8-10.8) Red Blood Count 3.67 M/UL (4.70-6.10) L Hemoglobin 11.9 G/DL (14.2-18.0) L Hematocrit 33.0 % (42.0-52.0) L Mean Corpuscular Volume 90 FL (80-99) Mean Corpuscular Hemoglobin 32.4 PG (27.0-31.0) H Mean Corpuscular Hemoglobin Concent 36.0 G/DL (32.0-36.0) Red Cell Distribution Width 14.4 % (11.6-14.8) Platelet Count 109 K/UL (150-450) L Mean Platelet Volume 8.9 FL (6.5-10.1) Neutrophils (%) (Auto) 52.8 % (45.0-75.0) Lymphocytes (%) (Auto) 14.8 % (20.0-45.0) L Monocytes (%) (Auto) 27.2 % (1.0-10.0) H Eosinophils (%) (Auto) 4.3 % (0.0-3.0) H Basophils (%) (Auto) 0.9 % (0.0-2.0) Differential Total Cells Counted 100 Neutrophils % (Manual) 54 % (45-75) Lymphocytes % (Manual) 18 % (20-45) L Monocytes % (Manual) 26 % (1-10) H Eosinophils % (Manual) 2 % (0-3) Basophils % (Manual) 0 % (0-2) Band Neutrophils 0 % (0-8) Platelet Estimate Decreased L Platelet Morphology Normal Red Blood Cell Morphology Normal Sodium Level 142 MMOL/L (136-145) Potassium Level 3.4 MMOL/L (3.5-5.1) L Chloride Level 109 MMOL/L (98-107) H Carbon Dioxide Level 26 MMOL/L (21-32) Anion Gap 7 mmol/L (5-15) Blood Urea Nitrogen 5 mg/dL (7-18) L Creatinine 1.1 MG/DL (0.55-1.30) Estimat Glomerular Filtration Rate > 60 mL/min (>60) Glucose Level 93 MG/DL (74-106) Calcium Level 7.6 MG/DL (8.5-10.1) L Phosphorus Level 1.6 MG/DL (2.5-4.9) L Magnesium Level 2.0 MG/DL (1.8-2.4) Total Bilirubin 0.9 MG/DL (0.2-1.0) Aspartate Amino Transf (AST/SGOT) 32 U/L (15-37) Alanine Aminotransferase (ALT/SGPT) 26 U/L (12-78) Alkaline Phosphatase 97 U/L (46-116) Total Protein 6.3 G/DL (6.4-8.2) L Albumin 2.3 G/DL (3.4-5.0) L Globulin 4.0 g/dL Albumin/Globulin Ratio 0.6 (1.0-2.7) L General: well developed Neurologic Exam Objective somnolent, open eyes, non verbal, withdraws to pain Left hemiparesis Impression/Recommendations Problems: (1) Hypernatremia (2) Embolic cerebral infarction (3) Sick sinus syndrome (4) Compression fracture of L3 vertebra (5) Intractable pain (6) Social isolation (7) Impaired mobility and ADLs (8) UTI (urinary tract infection) (9) Suicidal ideations (10) HTN (hypertension) (11) Dehydration (12) Failure to thrive in adult (13) Renal failure (ARF), acute on chronic (14) ANGI (acute kidney injury) (15) BPH (benign prostatic hyperplasia) (16) Agitation due to dementia (17) Schizoaffective disorder Diagnostic Impression Acute ischemic stroke bilateral hemispheres, anterior and posterior circulation high concern for embolic cont asa daily statin daily Carotid US no significant athero pt ot consider aru vs snf Natalio Whitfield MD Aug 30, 2020 21:34
--- NOTE | 2020-09-01 09:01 | Discharge Summary ---
Discharge Summary Discharge Summary _ DATE OF ADMISSION: 08/18/2020 DATE OF DISCHARGE: 08/30/2020 DISCHARGED BY: Dr. Rothman REASON FOR ADMISSION: 75 years old male, resident of group home facility, with past medical history of hypertension, dementia, BPH, chronic kidney disease, old thoracic vertebral and lumbar vertebral compression fracture, chronic back pain, depression, was sent for evaluation due to abnormal labs. At SNF BUN 44, creatinine 1.9 , sodium 155. Upon evaluation vital signs were stable. Laboratory work-up revealed no leukocytosis, hemoglobin 17.7, hematocrit 56.7 , platelet count 110. Sodium 158 , chloride 120 . BUN 51 , creatinine 2.3. Glucose 106. Lactic acid 1.3. AST 78 , AST 171, total CK 54. Troponin 0.013 . ECG showed sinus rhythm with sinus arrhythmia with 1st degree AV block. Chest x-ray demonstrated mild streaky opacity in the left base , possibly subsegmental atelectasis or scaring ; possibility of developing infiltrate not excluded. Rapid COVID-19 was negative Patient admitted with acute renal failure , hypernatremia and dehydration CONSULTANTS: user interface developer Dr. Emerson neurologist Dr. Whitfield pulmonary Dr. Byrne book cleaner Dr. Mata [facility]RSE: Patient admitted and started on IV hydration. DVT prophylaxis provided. Rapid COVID-19 in ED was negative. Patient admitted with worsening altered mental status . Neurologist consulted . On exam patient was weaker on the right side. Patient undergone MRI of the brain , which revealed multiply small foci of restricted diffusion in the posterior right temporal, right occipital lobes and right thalamus. Also small punctuated focus of restricted diffusion in the left occipital lobe. Findings suggested multiply small microembolic infarcts in both hemispheres, worse on the right. No hemorrhage, mass-effect or shift. Patient undergone carotid duplex which was essentially unremarkable. Patient undergone echocardiogram with bubble study , which revealed no indication of ASD/PFO or VSD Echocardiogram demonstrated preserved ejection fraction of 65%. No evidence of wall motion abnormality. Lipid panel was stable. Patient was on statin and aspirin. Thyroid panel stable. Cortisol in range. Hemoglobin A1c 5.7. Patient demonstrated sick sinus syndrome Patient had multiply pauses. Patient was not on digoxin, beta-tay or calcium channel tay. Patient was on dopamine , which subsequently was discontinued. Patient subsequently undergone a [employer] pacemaker implantation on due to sick sinus syndrome. Interrogation showed normal functioning . Chest x-ray revealed no pneumothorax. Renal parameters and electrolytes were closely monitored ; electrolytes corrected as needed , and nephrotoxic's were avoided . Dehydration lead to free water deficit and hypernatremia. Prior to discharge sodium down to 142. BUN from 51 down to 5 and creatinine down to 1.1. Fall precaution maintained. Patient was working with physical therapisty. Supportive care provided . Patient clinically stabilized and was ready for transfer back to group home facility for continuation of care. LFT were closely monitored: AST down to 32 , ALT down to 26. Abdominal ultrasound revealed sludge within the distended gallbladder, but no acute cholecystitis. Left renal cyst. Hepatic steatosis. Nonspecific splenomegaly. Hepatitis panel at the time of this dictation still pending. FINAL DIAGNOSES: Multiply small microembolic infarcts/ Embolic cerebral infarction Altered mental status ( due to cerebral infarction) ) Sick sinus syndrome with multiply pauses Probable paroxysmal atrial fibrillation Status post [employer] pacemaker implantation 08/27 Acute kidney injury on chronic kidney disease-resolved Dehydration Hypernatremia-resolved Abnormal LFT -resolved BPH Electrolyte abnormality Hypertension History of compression fracture Schizophrenia DISCHARGE MEDICATIONS: See Medication Reconciliation list. DISCHARGE INSTRUCTIONS: Patient was discharged to the group home facility. Follow up with medical doctor at the facility. I have been assigned to dictate discharge summary for this account. Aida Fink NP Sep 01, 2020 09:01
== END 2020-08-30 15:42 | DRG 981 ==
LOC: EDBD 12:44 → EDBEDREQ 13:44 → EMR 14:26 → 3E 14:45 → EDBEDREQ 14:47 → 3E 08-20 06:44 → 2E 08-21 13:13 → 2W 08-23 16:57 → 2E 08-29 12:00
DX: N17.9 Acute kidney failure, unspecified (principal); I63.423 Cerebral infarction due to embolism of bilateral anterior cerebral arteries; I63.433 Cerebral infarction due to embolism of bilateral posterior cerebral arteries; N39.0 Urinary tract infection, site not specified; E87.0 Hyperosmolality and hypernatremia; G81.94 Hemiplegia, unspecified affecting left nondominant side; R62.7 Adult failure to thrive; Z68.24 Body mass index [BMI] 24.0-24.9, adult; I49.5 Sick sinus syndrome; I48.0 Paroxysmal atrial fibrillation; F32.9 Major depressive disorder, single episode, unspecified; E86.0 Dehydration; F03.90 Unspecified dementia, unspecified severity, without behavioral disturbance, psychotic disturbance, mood disturbance, and anxiety; N40.0 Benign prostatic hyperplasia without lower urinary tract symptoms; I12.9 Hypertensive chronic kidney disease with stage 1 through stage 4 chronic kidney disease, or unspecified chronic kidney disease; N18.9 Chronic kidney disease, unspecified; F25.9 Schizoaffective disorder, unspecified; Z22.322 Carrier or suspected carrier of Methicillin resistant Staphylococcus aureus; Z74.09 Other reduced mobility; I45.5 Other specified heart block; N28.1 Cyst of kidney, acquired; R94.5 Abnormal results of liver function studies; S32.039D Unspecified fracture of third lumbar vertebra, subsequent encounter for fracture with routine healing; X58.XXXD Exposure to other specified factors, subsequent encounter; Z60.4 Social exclusion and rejection
CPT/HCPCS: 36415; 36569; 70551; 71045; 76000; 76700; 76937; 80048; 80053; 80061; 80076; 81001; 82248; 82436; 82533; 82550; 82553; 82977; 83036; 83605; 83735; 83880; 83930; 83935; 84100; 84133; 84300; 84439; 84443; 84481; 84484; 84550; 85007; 85025; 85610; 86140; 86705; 86709; 86803; 87081; 87340; 89050; 93005; 93306; 93880; 94003; 94150; 96360; 99285; J7030; J8499; U0002

== ENCOUNTER 2020-09-21 20:15 | Inpatient (IN) | payer MEDICARE ==
[~2020-09-21] VITALS: Ht 175.3 cm; Wt 86.2 kg
[~2020-09-21 20:15] MED LIST changes: +CEFAZOLIN SODIUM1 G1 IV; +MULTIVITAMINS1 EAC2 ORAL; +RISPERDAL2 MG ORAL
--- NOTE | 2020-09-21 20:15 | Emergency Room Report ---
History of Present Illness Present Illness HPI 83-year-old [facility] patient with history of dementia here with shortness of breath. Patient did have a negative Covid test several weeks ago. However over the past 24 hours the patient has had a rhonchorous productive cough and is appearing more short of breath tonight. When paramedics arrived the patient an option saturation 90% on room air. They placed him on a 6 L nasal cannula. This resolved the patient's hypoxia and he had a 96% oxygen saturation. However when patient was brought into the emergency department he was highly tachypneic and had an oxygen saturation of 70% on a nonrebreather mask. He was in acute distress and had severe altered mental status. Patient was emergently intubated. Allergies: Coded Allergies: No Known Allergies (Unverified , 07/22/20) Review of Systems All Other Systems: limited - Nonverbal at baseline. Unable to participate secondary to severity of disease Physical Exam Sp02 EP Interpretation: reviewed General Appearance: severe distress, other - Have increased respiratory effort. Cachectic, altered Head: normocephalic, atraumatic Eyes: bilateral eye normal inspection, bilateral eye PERRL ENT: normal pharynx, no angioedema Neck: supple/symm/no masses Respiratory: chest non-tender, other - Rhonchi in all lung borges. Mildly increased respiratory effort. Nonverbal Cardiovascular #1: no edema, other - Tachycardic 120 bpm Cardiovascular #2: 2+ carotid (R), 2+ carotid (L), 2+ radial (R), 2+ radial (L), 2+ dorsalis pedis (R), 2+ dorsalis pedis (L) Gastrointestinal: normal bowel sounds, non tender, soft, non-distended, no guarding, no rebound Rectal: deferred Genitourinary: normal inspection, no CVA tenderness Musculoskeletal: back normal, normal range of motion, non-tender Neurologic: sensory intact, other - Nonverbal at baseline. Moves all extremities nonpurposefully. Unable to participate in physical examination secondary to severity of disease Psychiatric: other - Altered, cachectic, unresponsive Lymphatic: no adenopathy Procedures Central Line Central Line : Consent: Emergent Central Line Lumen: triple Maximal Sterile Barrier Tech: yes cap, yes mask, yes sterile gown, yes sterile gloves, yes large sterile sheet, yes hand hygiene, yes chlorhexidine prep No Max Barrier Tech Because: emergency insertion Central Line Postion: femoral (R) US Guided Line?: Yes Vessel visualized with U/S: Left Femoral Vein Ultrasound Findings: Collapsible Vessel, Vessel Patent Complications: none Central Line Post Position: sutured, good blood return Attempts: One Patient Tolerated: Well Complications: None Intubation Intubation : Consent: Emergent Intubation Method: orotracheal Tube Size (cm): 7.5 Medications: Etomidate, Rocuronium Breath Sounds after Intubation: equal Intubation Complications: no complications Post Intubation Xray: Yes Attempts: One Patient Tolerated: Well Complications: None Medical Decision Making Diagnostic Impression: Primary Impression: AMS (altered mental status) Additional Impressions: Respiratory failure ANGI (acute kidney injury) ARF (acute renal failure) Hypernatremia NSTEMI (non-ST elevated myocardial infarction) ER Course Procedure: XRAY Chest 1v INDICATION: Cough COMPARISON: 08/27/2020. Findings/impression: Stable cardiomegaly. Left chest wall dual-lead pacing device. Tip of the endotracheal tube is 40 mm above the malissa. Partially visualized airspace consolidation projecting over the lateral left mid lung, correlate for pneumonia. No clinically significant pneumothorax or pleural effusion. Degenerative osteophytes are noted in the thoracic spine. Total critical care time: Approximately 70 minutes Due to a high probability of clinically significant, life threatening deterioration, the patient required the highest level of preparedness to intervene emergently and I personally spent this critical care time directly and personally managing the patient. This critical care time included obtaining a history, examining the patient, pulse oximetry, ordering and reviewing studies, ordering treatments, evaluating response to treatment and updating management plan as needed, frequent reassessment and discussion with other providers as well as arranging for ultimate disposition. This critical to care time was per formed to assess and manage the high probability of life-threatening deterioration that could result in multiorgan failure. This critical care time is separate from the separately billable procedures and treating other patients. Laboratory Tests Test 09/21/20 21:00 09/21/20 21:25 09/21/20 21:30 White Blood Count 9.4 K/UL (4.8-10.8) Red Blood Count 4.58 M/UL (4.70-6.10) L Hemoglobin 14.5 G/DL (14.2-18.0) Hematocrit 43.1 % (42.0-52.0) Mean Corpuscular Volume 94 FL (80-99) Mean Corpuscular Hemoglobin 31.6 PG (27.0-31.0) H Mean Corpuscular Hemoglobin Concent 33.6 G/DL (32.0-36.0) Red Cell Distribution Width 15.9 % (11.6-14.8) H Platelet Count 105 K/UL (150-450) L Mean Platelet Volume 10.4 FL (6.5-10.1) H Neutrophils (%) (Auto) 75.2 % (45.0-75.0) H Lymphocytes (%) (Auto) 5.9 % (20.0-45.0) L Monocytes (%) (Auto) 17.5 % (1.0-10.0) H Eosinophils (%) (Auto) 0.4 % (0.0-3.0) Basophils (%) (Auto) 1.0 % (0.0-2.0) Prothrombin Time 16.1 SEC (9.30-11.50) H Prothrombin Time INR 1.5 (0.9-1.1) H Activated Partial Thromboplast Time 31 SEC (23-33) D-Dimer 1.57 mg/L FEU (0.00-0.49) H Sodium Level 170 MMOL/L (136-145) *H Potassium Level 4.2 MMOL/L (3.5-5.1) Chloride Level 131 MMOL/L (98-107) H Carbon Dioxide Level 29 MMOL/L (21-32) Anion Gap 10 mmol/L (5-15) Blood Urea Nitrogen 72 mg/dL (7-18) H Creatinine 5.0 MG/DL (0.55-1.30) H Estimated Glomerular Filtration Rate 11.4 mL/min (>60) Glucose Level 124 MG/DL (74-106) H Lactic Acid Level Pending Calcium Level 8.6 MG/DL (8.5-10.1) Ferritin 1085 NG/ML (8-388) H Total Bilirubin 2.5 MG/DL (0.2-1.0) H Direct Bilirubin 1.7 MG/DL (0.0-0.3) H Aspartate Amino Transferase (AST) 108 U/L (15-37) H Alanine Aminotransferase (ALT) 46 U/L (12-78) Alkaline Phosphatase 107 U/L (46-116) Lactate Dehydrogenase 255 U/L (81-234) H Total Creatine Kinase 1842 U/L (26-308) H Creatine Kinase MB Pending Troponin I 0.140 ng/mL (0.000-0.056) C-Reactive Protein, Quantitative 14.2 mg/dL (0.00-0.90) H Pro-B-Type Natriuretic Peptide 1196 pg/mL (0-125) H Total Protein 8.0 G/DL (6.4-8.2) Albumin 2.7 G/DL (3.4-5.0) L Globulin 5.3 g/dL Albumin/Globulin Ratio 0.5 (1.0-2.7) L Triglycerides Level 185 MG/DL (30-150) H Lipase 321 U/L (73-393) Arterial Blood pH 7.357 (7.350-7.450) Arterial Blood Partial Pressure CO2 47.2 mmHg (35.0-45.0) H Arterial Blood Partial Pressure O2 103.7 mmHg (75.0-100.0) H Arterial Blood HCO3 25.9 mmol/L (22.0-26.0) Arterial Blood Oxygen Saturation 97.0 % (95-100) Arterial Blood Base Excess -0.1 (-2-2) Kush Test Positive Urine Color Brown Urine Appearance Cloudy Urine pH 5 (4.5-8.0) Urine Specific [place] 1.025 (1.005-1.035) Urine Protein 3+ (NEGATIVE) H Urine Glucose (UA) Negative (NEGATIVE) Urine Ketones 1+ (NEGATIVE) H Urine Blood 5+ (NEGATIVE) H Urine Nitrite Positive (NEGATIVE) H Urine Bilirubin 2+ (NEGATIVE) H Urine Ictotest Negative (NEGATIVE) Urine Urobilinogen 8 MG/DL (0.0-1.0) H Urine Leukocyte Esterase 3+ (NEGATIVE) H Urine RBC Pending Urine WBC Pending Urine Squamous Epithelial Cells Pending Urine Bacteria Pending EKG: Rightward axis, rate 97 bpm, sinus rhythm. T wave inversions in V1 through V6,, ST abnormalities in 2, 3, aVF. No ischemia, intervals WNL. No ectopy Rhythm strip: patient monitored for arrhythmias - no malignant dysrhythmias, runs of PVCs, nor pauses noted 75-year-old male here with altered mental status and hypoxia. Patient was in respiratory distress on arrival to the emergency department. He was completely obtunded and altered and required intubation immediately. An oxygen saturation of 70% on 15 L nonrebreather. Intubation was performed as described above. Central line placed in the right femoral vein as described above as well. Patient had airspace disease over the left lower lobe. He was started on vancomycin and Zosyn in the emergency department. Currently awaiting results of other labs. He was found as well to be heavily hypernatremic with a sodium of 170. Started on 30 cc/kg fluid bolus. Troponin also increased. EKG was concerning for inferior ischemia but may be result of artifact versus demand ischemia. High suspicious for COVID-19 infection at this time. Covid swab pending. Patient was found also to have an acute kidney injury with a creatinine of 5.0. Could not perform CTA of the [id number] male history of autism with recent. Currently awaiting results of CT head and CT chest noncontrast. . Patient in critical condition. I spoke with the patient's admitting physician Dr. Rothman who accepted patient for admission. Patient awaiting admission to intensive care unit. [place] Maldonado M.D. Sep 21, 2020 20:15
[2020-09-21 20:20] VITALS: BP 104/63
--- NOTE | 2020-09-21 20:20 | NUR ---
ED Nurse Note: Patient brought into ED from [facility] for ALOC and hypoxia by LAFD RA 52. Per LAFD, patient is normally alert to self and tonight around 1830 he became altered which was last known well time according to staff at facility. LAFD also notes that patient had an oxygen saturation of 90% on scene. LAFD had placed patient on nasal cannula 6L oxygen on scene. Upon ED arrival, patient presents short of breath and tachypneic with respirations in the 40's. Patient also noted to have productive cough with yellow sputum. He was connected to school bus monitor and placed on non-rebreather at 15L oxygen due to severe respiratory distress. Patient had an oxygen saturation in the 70's on the 15L oxygen via non-rebreather. ERMD made aware and bedside. Patient opens eyes spontaneously on occasion, but otherwise is obtunded. He does not respond to painful stimuli and is unable to track with his eyes. IV line on Right AC 22g was patent and intact from nursing facility. EKG done bedside. Safety measures in place.
--- NOTE | 2020-09-21 20:33 | NUR ---
ED Nurse Note: ISAIAS bedside for intubation at this time- 2032. Preintubation vital signs: 27 RR, 107 HR, 83/59 BP, 76% oxygen sat on 15L NRB. Intubation successful with 1 attempt and tube secured 23cm at the lip. RT bedside. Post intubation vital signs: 18RR, 95 HR, 105/70 BP, 100% oxygen saturation. See vent flow sheet for mechanical vent settings. Addendum: 09/22/20 at 0200 by JER Prior to intubation 20mg etomidate pushed IV as verbally ordered by ISAIAS Maldonado and 70mg rocuronium pushed IV.
[2020-09-21] MEDS ORDERED: propofoL 1,000mg/100ml 100 ML IV SCH (20:45)
--- NOTE | 2020-09-21 21:00 | NUR ---
ED Nurse Note: R femoral central line placed at this time with 1 successful attempt by ISAIAS Maldonado.
--- NOTE | 2020-09-21 21:26 | Diagnostic Imaging Report ---
INDICATION: Cough COMPARISON: 08/27/2020. Findings/impression: Stable cardiomegaly. Left chest wall dual-lead pacing device. Tip of the endotracheal tube is 40 mm above the malissa. Partially visualized airspace consolidation projecting over the lateral left mid lung, correlate for pneumonia. No clinically significant pneumothorax or pleural effusion. Degenerative osteophytes are noted in the thoracic spine.
[2020-09-21] MEDS ORDERED: Piperacillin/Tazobactam 3.375 GM in NS 110 ML IVPB ONE (21:30)
[2020-09-21] MEDS ORDERED: Vancomycin 1 GM in NS 275 ML IVPB ONE (21:30)
--- NOTE | 2020-09-21 21:30 | NUR ---
ED Nurse Note: ISAIAS Maldonado ok'd garrett insertion for output monitoring.
[2020-09-21 21:42] LABS: EOSINOPHILS % (AUTO) 0.4 % (0.0-3.0); HEMATOCRIT 43.1 % (42.0-52.0); HEMOGLOBIN 14.5 G/DL (14.2-18.0); LYMPHOCYTES % (AUTO) 5.9 % (20.0-45.0); MEAN CORPUSCULAR VOLUME 94 FL (80-99); MONOCYTES % (AUTO) 17.5 % (1.0-10.0); NEUTROPHILS % (AUTO) 75.2 % (45.0-75.0); PLATELET COUNT 105 K/UL (150-450); RED BLOOD COUNT 4.58 M/UL (4.70-6.10); RED CELL DISTRIBUTION WIDTH 15.9 % (11.6-14.8); WHITE BLOOD COUNT 9.4 K/UL (4.8-10.8)
[2020-09-21] MEDS ORDERED: Omnipaque 350 100ml vial INJ PRN (21:45)
[2020-09-21 22:05] LABS: INR 1.5 (0.9-1.1)
[2020-09-21 22:08] LABS: APPEARANCE,URINE CLOUDY; BILIRUBIN, URINE 2+ (NEGATIVE); COLOR,URINE BROWN; GLUCOSE, URINE (UA) NEGATIVE (NEGATIVE); KETONES,URINE 1+ (NEGATIVE); LEUKOCYTE ESTERASE ,URINE 3+ (NEGATIVE); NITRITE,URINE POSITIVE (NEGATIVE); PH,URINE 5 (4.5-8.0); PROTEIN,URINE 3+ (NEGATIVE); UROBILINOGEN,URINE 8 MG/DL (0.0-1.0)
[2020-09-21 22:10] LABS: ALBUMIN 2.7 G/DL (3.4-5.0); ALBUMIN/GLOBULIN RATIO 0.5 (1.0-2.7); BILIRUBIN,TOTAL 2.5 MG/DL (0.2-1.0); CALCIUM 8.6 MG/DL (8.5-10.1); POTASSIUM 4.2 MMOL/L (3.5-5.1)
[2020-09-21 22:12] LABS: BILIRUBIN,DIRECT 1.7 MG/DL (0.0-0.3)
[2020-09-21 22:32] LABS: CKMB 4.4 NG/ML (0.0-3.6)
--- NOTE | 2020-09-21 22:49 | Diagnostic Imaging Report ---
EXAM: CT Head Without Intravenous Contrast CLINICAL HISTORY: AMS TECHNIQUE: Axial computed tomography images of the head/brain without intravenous contrast. CTDI is 53.4 mGy and DLP is 1018.8 mGy-cm. One or more of the following dose reduction techniques were used: automated exposure control, adjustment of the mA and/or kV according to patient size, use of iterative reconstruction technique. COMPARISON: MRI brain 08/20/2020. FINDINGS: Brain: No acute intracranial hemorrhage, mass-effect or evidence of edema. Again identified are chronic appearing findings such as generalized atrophy and periventricular small vessel ischemic changes. Ventricles: No ventriculomegaly. Bones/joints: Unremarkable. No acute fracture. Soft tissues: Unremarkable. Sinuses: Unremarkable as visualized. Mastoid air cells: No mastoid effusion. Orbits: Symmetric. IMPRESSION: 1. No acute intracranial process. 2. Chronic appearing findings such as generalized atrophy and periventricular small vessel ischemic changes again noted.
[2020-09-21 22:50] VITALS: BP 79/55
--- NOTE | 2020-09-21 22:50 | NUR ---
ED Nurse Note: Patient went hypotensive at this time. Blood pressure 79/55. ERMD aware. Levophed initiated at 2mcg and will titrate per protocol.
--- NOTE | 2020-09-21 23:08 | Diagnostic Imaging Report ---
EXAM: CT Chest With Intravenous Contrast CLINICAL HISTORY: AMS TECHNIQUE: Axial computed tomography images of the chest with intravenous contrast. CTDI is 9.5 mGy and DLP is 401.4 mGy-cm. One or more of the following dose reduction techniques were used: automated exposure control, adjustment of the mA and/or kV according to patient size, use of iterative reconstruction technique. COMPARISON: No relevant prior studies available. FINDINGS: Evaluation of the soft tissue and vasculature is limited on this noncontrast exam. Lungs: Tip of the endotracheal tube is 4.5 cm above the malissa. Almost complete opacification of the left mainstem bronchus with presumed debris with extension to the segmental and subsegmental branches. Tree-in-bud nodularity is identified within the right lower lobe (5: 36, hatch images) and to a greater extent within the left lower lobe along with patchy airspace consolidations (5: 46). Left lower lobe and lingular subsegmental atelectasis. Pleural space: No pneumothorax. No significant effusion. Heart: Left chest wall dual-lead pacing device. No cardiomegaly. Small pericardial effusion. Bones/joints: Degenerative osteophytes are noted in the cervical and thoracic spine. No acute fracture. No dislocation. Soft tissues: Unremarkable. Vasculature: Aneurysmal dilatation of the ascending thoracic aorta at 43 mm (4: 35). Atherosclerotic vascular calcifications are identified, including within the thoracic aorta and coronary arteries. Lymph nodes: Enlarged precarinal lymph node measuring 12 mm and mildly enlarged subcarinal lymph node measuring 10 mm, nonspecific but likely reactive. Upper abdomen: Left renal sinus cyst. Atrophic pancreas. IMPRESSION: 1. Almost complete opacification of the left mainstem bronchus, segmental and subsegmental bronchi with presumed debris. Tree-in-bud nodularity along with patchy airspace consolidations are identified in the bilateral lower lobes, left greater than right. Constellation of findings are suspicious for aspiration pneumonia. 2. Left lower lobe and lingular subsegmental atelectasis. 3. 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
[2020-09-21] MEDS ORDERED: Albuterol/Ipratropium 3ml neb HHN PRN (23:45)
[2020-09-21] MEDS ORDERED: Morphine Sulfate 4mg/ml Inj (IV USE ONLY) IVP PRN (23:45)
[2020-09-21] MEDS ORDERED: Miralax 17gm pkt ORAL PRN (23:45)
[2020-09-21] MEDS ORDERED: Vancomycin 1 GM in D5W 275 ML IV SCH (23:45)
[2020-09-21] MEDS ORDERED: Haloperidol 5mg/ml Inj IM PRN (23:45)
[2020-09-22] VITALS (76 sets, daily range): BP systolic 47–199; BP diastolic 22–168
--- NOTE | 2020-09-22 00:36 | NUR ---
ED Nurse Note: Patient became more restless and coughing on mechanical ventilator at this time. He is moving head slightly up and down, does not appear comfortable. Diprivan started at 0036 and will titrate to protocol.
--- NOTE | 2020-09-22 01:50 | NUR ---
ED Nurse Note: Patient oxygen saturation flucuating at this time from 66-91% on mechanical vent. ISAIAS Burch made aware. RT bedside for repeat ABG.
--- NOTE | 2020-09-22 02:25 | NUR ---
ED Nurse Note: RT changed vent settings as ordered by ISAIAS muller after repeat ABG.
--- NOTE | 2020-09-22 02:45 | NUR ---
ED Nurse Note: patient provided warm blankets, current blood pressure is 75/49, will increase levophed infusion to 30 mcg
[2020-09-22] MEDS ORDERED: Vasopressin 100 UNITS in NS 95 ML IV SCH (03:15)
--- NOTE | 2020-09-22 03:15 | NUR ---
ED Nurse Note: Patient is maxed at 30mcg of levophed at this time as orderd by ISAIAS Burch. Patient current BP is 61/52. ISAIAS aware and will order vasopressin.
--- NOTE | 2020-09-22 03:21 | NUR ---
ED Nurse Note: Vasopressin started at this time due to low blood pressure. ISAIAS Burch ordered starting dose as 0.03 units/min.
--- NOTE | 2020-09-22 03:57 | Emergency Room Report ---
Physical Exam Vital Signs Date Time Temp Pulse Resp B/P (MAP) Pulse Ox O2 Delivery O2 Flow Rate FiO2 09/21/20 20:11 100.4 88 22 104/63 (77) 96 Nasal Cannula 6.0 09/21/20 20:48 100 Medical Decision Making Diagnostic Impression: Primary Impression: AMS (altered mental status) Additional Impressions: ARF (acute renal failure) Hypernatremia Respiratory failure NSTEMI (non-ST elevated myocardial infarction) ANGI (acute kidney injury) ER Course Assumed care of the patient from the previous provider at approximately 2300. Please refer to initial note for full history and physical exam. Briefly, 75-year-old male brought in for altered mental status and respiratory failure. He is intubated and started on Levophed for hypotension. Hypotension persisted and vasopressin was added. Continues to receive fluids. Blood gas noted hypoxia. CT of the chest shows occlusion of left mainstem. Increased PEEP and ventilatory rate. Will recheck gas. Remains in critical condition. Patient is boarding in ED until ICU bed is available. Last Vital Signs Date Time Temp Pulse Resp B/P (MAP) Pulse Ox O2 Delivery O2 Flow Rate FiO2 09/22/20 03:15 99.8 118 26 61/52 91 Mechanical Ventilator 100 09/21/20 20:11 6.0 Disposition: ADMITTED INPATIENT Condition: Critical Referrals: Andrés Rothman MD (PCP) Procedures Critical Care Time Critical Care Time Total critical care time: Approximately 45 minutes Due to a high probability of clinically significant, life threatening deterioration, the patient required the highest level of preparedness to intervene emergently and I personally spent this critical care time directly and personally managing the patient. This critical care time included obtaining a history, examining the patient, pulse oximetry, ordering and reviewing studies, ordering treatments, evaluating response to treatment and updating management plan as needed, frequent reassessment and discussion with other providers as well as arranging for ultimate disposition. This critical to care time was performed to assess and manage the high probability of life-threatening deterioration that could result in multiorgan failure. This critical care time is separate from the separately billable procedures and treating other patients. Jag Burch MD Sep 22, 2020 03:57
[2020-09-22] MEDS ORDERED: Ertapenem 0.5 GM in NS 55 ML IV SCH (04:00)
--- NOTE | 2020-09-22 04:10 | NUR ---
ED Nurse Note: Patient is maxed out of levophed at 30 mcg and vasopressin at 0.04 units at this time. See vitals flow sheet and IV spreadsheet. He remains on 20mcg of diprivan as well; no change. RT is bedside suctioning patient. Patient does not appear to be in pain at this time. He is lightly sedated. BP is 103/62, HR is tachy at 118. Patient also repositioned and pillow placed behind head for support.
[2020-09-22] MEDS ORDERED: Amikacin Rx to dose MISC PRN (05:00)
[2020-09-22] MEDS ORDERED: AMIKACIN IV ONE (05:00)
[2020-09-22] MEDS ORDERED: NS IV ONE (05:00)
--- NOTE | 2020-09-22 05:15 | NUR ---
ED Nurse Note: No change in IV drips at this time. Patient remains on diprivan, vasopressin and levophed. See IV spreadsheet. Current BP is stable. HR is tachycardic.
[2020-09-22] MEDS ORDERED: Acetaminophen 650 MG SUPP RECTAL PRN (06:00)
--- NOTE | 2020-09-22 06:00 | NUR ---
ED Nurse Note: ERMD aware of patient current BP as documented. Will administer 1L NS bolus. Patient remains maxed out on vasopressin and levophed.
--- NOTE | 2020-09-22 06:00 | NUR ---
ED Nurse Note: Rectal temp noted at 102.1F.
--- NOTE | 2020-09-22 06:41 | NUR ---
ED Nurse Note: ERMD aware of patient status. BP is 73/42. ERMD ordered dopamine to be started at this time at 4 mcg.
[2020-09-22] MEDS ORDERED: DOPamine 400mg/250ml 250 ML IV SCH (06:45)
--- NOTE | 2020-09-22 07:09 | NUR ---
HAND-OFF: Report given to KRYSTYNA Moran.
--- NOTE | 2020-09-22 07:11 | NUR ---
ED Nurse Note: Spoke with pharmacy regarding pending Invanz. Pharmacy states they will mix medication and bring it to RN.
--- NOTE | 2020-09-22 07:19 | NUR ---
ED Nurse Note: Report received from KRYSTYNA Sales. Pt vss stable, pt appear obtunded, garrett catheter draining 10-20 cc. please view IV spreadsheet and vent interventions.
--- NOTE | 2020-09-22 07:52 | NUR ---
ED Nurse Note: telephone report given to sekou perry for continuity of care.
[2020-09-22] MEDS ORDERED: Norepinephrine 4mg/NS Premix 250 ML IV SCH (08:00)
--- NOTE | 2020-09-22 08:00 | NUR ---
TRANSFER TO FLOOR: Patient transferred to ICU as ordered, per ERMD. Report given to KRYSTYNA CHOPRA. PT HAD NO BELONGINGS.
--- NOTE | 2020-09-22 08:15 | NUR ---
NURSE NOTES: Pt received from NICOLE Ingram RN. Pt received via hospital bed, orally intubated with a 7.5 ETT noted 25 cm at the lip - pt being bagged per RT. Pt connected to front desk monitor and ventilator with the following settings: AC 16 TV 550 FiO2 100% Peep 5. environmental monitoring technician shows PEA (no pulses palpable) - code blue called and CPR initiated promptly - ROSC achieved after 2 min of CPR without additional interventions in which pt converted to AFIB with a rate of 130-140- Dr Crespo notified per penelope Pringle RN. Pt also noted hypotensive (on multiple pressors / brought up on propofol running on 20 mcg/kig/min which was discontinued immediately upon receiving pt). ABGs drawn and will be processed. After resuscitation, pt noted grimacing when orally suctioned. bilat pupils equal and round 3mm - non-reactive to light. Pt is unable to follow commands. All extremities are flaccid. yellow "debris" (possibly previously aspirated vomitus) noted when endotracheally suctioned. Lung sounds noted diminished upon auscultation. SpO2 trending in the 60-80s. Dr Byrne notified. Will f/u with ABGs. Radial and dorsalis pedis pulses 1+. Femoral pulse 2+. No edema noted. Pt is febrile. ice packs applied to axilla. cap refill is 5 sec. mottling noted to extremities. OGT inserted at approx 63 cm at the lip. STAT KUB ordered. Pt is NPO. Abdomen is round and soft w/ active bowel sounds to all quadrants. F/C noted draining dark shante urine. Pt is oliguric. Will f/u w/ Dr Mata. Skin alterations noted. Pt has a R Fem TLC with dry and intact dressing running levophed at 30 mcg/min, dopamine at 4 mcg/kg/min, and vasopressin at 0.04 units/min (will titrate up dopamine and obtain additional orders for pressors as needed from Dr Crespo). Pt has no belongings. Bed in lowest position, alarm on, side rails up x 3, call light within reach. Will continue to monitor.
--- NOTE | 2020-09-22 08:28 | Emergency Room Report ---
History of Present Illness General Chief Complaint: Altered Level of Consciousness Source: Medical Record Present Illness HPI I was asked to respond to a CODE BLUE paged overhead. Patient is in critical status, admitted to the ICU for septic shock, NSTEMI, renal failure, and respiratory failure. Procedure note Cardiopulmonary Resuscitation by me: See code documentation for specific details. ACLS and BLS were performed with high quality chest compressions and minimal interruptions. Any reversible causes were assessed and treated. Indication: Pulseless/CODE BLUE. Initial rhythm pulseless V. tach. Informed consent: Patient unable to consent and no DNR status on record Procedure: Cardiac compressions were performed by staff in order to sustain blood flow under my direct supervision. The patient was ventilated and oxygenated. The patient received appropriate ACLS measures and they were repeated as necessary. 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 COVID-19 Screening: Negative COVID-19 COVID-19 Testing Source: [facility] Nursing Documentation-[facility] Past Medical History: No History, Except For Hx Hypertension: Yes Hx Cancer: No Hx Dementia: Yes Physical Exam Vital Signs Date Time Temp Pulse Resp B/P (MAP) Pulse Ox O2 Delivery O2 Flow Rate FiO2 09/21/20 20:11 100.4 88 22 104/63 (77) 96 Nasal Cannula 6.0 09/21/20 20:48 100 Sp02 EP Interpretation: reviewed, abnormal Medical Decision Making Diagnostic Impression: Primary Impression: AMS (altered mental status) Additional Impressions: ARF (acute renal failure) Hypernatremia Respiratory failure NSTEMI (non-ST elevated myocardial infarction) ANGI (acute kidney injury) Pulseless ventricular tachycardia Cardiopulmonary arrest Reevaluation Time: 08:28 Last Vital Signs Date Time Temp Pulse Resp B/P (MAP) Pulse Ox O2 Delivery O2 Flow Rate FiO2 09/22/20 08:00 101.5 117 22 108/88 100 Mechanical Ventilator 15.0 100 Status: improved Disposition: ADMITTED INPATIENT Admit Decision Time: 08:28 Condition: Critical Referrals: Andrés Rothman MD (PCP) Geni Sarkar D.O. Sep 22, 2020 08:28
[2020-09-22] MEDS: Phenylephrine 50 MG in D5W 245 ML IV SCH ×2 (08:45→12:00)
[2020-09-22] MEDS ORDERED: Tamsulosin 0.4mg cap ORAL SCH (09:00)
[2020-09-22] MEDS: Vasopressin 100 UNITS in NS 95 ML IV SCH ×2 (09:00→10:07)
[2020-09-22] MEDS ORDERED: Pantoprazole Inj IVP SCH (09:00)
[2020-09-22] MEDS: DOPamine 400mg/250ml 250 ML IV SCH ×2 (09:00→10:30)
[2020-09-22] MEDS: Norepinephrine 4mg/NS Premix 250 ML IV SCH ×3 (09:13→13:57)
[2020-09-22] MEDS: Heparin 5000 units/ml inj SUBQ SCH ×2 (09:14→21:00)
--- NOTE | 2020-09-22 09:21 | Consultation ---
History of Present Illness General Date patient seen: Sep 22, 2020 Time patient seen: 11:13 Chief Complaint: Altered Level of Consciousness Referring physician: PCP Reason for Consultation: Septic shock Present Illness HPI 75yo M from SNF who p/w SOB, s/p CODE in ED, now intubated in ICU. History obtained from chart review and d/w RN. Per ED note: Pt with history of dementia here with shortness of breath. Patient did have a negative Covid test several weeks ago. However over the past 24 hours the patient has had a rhonchorous productive cough and is appearing more short of breath tonight. When paramedics arrived the patient an option saturation 90% on room air. They placed him on a 6 L nasal cannula. This resol zandra the patient's hypoxia and he had a 96% oxygen saturation. However when patient was brought into the emergency department he was highly tachypneic and had an oxygen saturation of 70% on a nonrebreather mask. He was in acute distress and had severe altered mental status. Patient was emergently intubated. Pt intubated in ICU Vent 100% PEEP 8 Na in 160s from 170 Cr worsening in 5s On levophed @30, vaso @0.04 Allergies: Coded Allergies: No Known Allergies (Unverified , 07/22/20) Medication History Scheduled Amlodipine Besylate* (Amlodipine Besylate*), 5 MG ORAL DAILY, (Reported) Cefazolin Sodium (Cefazolin Sodium), 1 GM IV EVERY 8 HOURS, (Reported) Chlorhexidine Gluconate (Peridex), 15 ML ORAL DAILY AND EVENING, (Reported) Docusate Sodium* (Docusate Sodium*), 100 MG ORAL ONCE DAILY, (Reported) Mirtazapine* (Mirtazapine*), 15 MG ORAL BEDTIME Multivitamins* (Multivitamins*), 1 TAB ORAL DAILY, (Reported) Pantoprazole* (Pantoprazole*), 40 MG ORAL ACBREAKFAST, (Reported) Pantoprazole* (Pantoprazole*), 40 MG ORAL DAILY, (Reported) Risperidone* (Risperdal*), 2 MG ORAL DAILY, (Reported) Tamsulosin HCl (Flomax), 0.4 MG ORAL DAILY, (Reported) Tamsulosin HCl (Flomax), 0.4 MG ORAL Q12HR Scheduled PRN Acetaminophen* (Acetaminophen 325MG Tablet*), 650 MG ORAL Q4H PRN for PAIN/FEVER, (Reported) Haloperidol Lactate (Haloperidol Lactate), 5 MG IM Q6H PRN Zolpidem Tartrate* (Zolpidem Tartrate*), 5 MG ORAL BEDTIME PRN for INSOMINA, (Reported) Patient History Healthcare decision maker Resuscitation status Advanced Directive on File Review of Systems ROS Narrative Unable to assess 2/2 pt condition Physical Exam Neck: limited range of motion Physical Exam Narrative Gen: NAD HEENT: NCAT, ETT Pulm: BL chest rise on vent Abd: Non-distended Ext: No c/c/e Skin: No visible rashes Neuro: Sedated Last 24 Hour Vital Signs Date Time Temp Pulse Resp B/P (MAP) Pulse Ox O2 Delivery O2 Flow Rate FiO2 09/22/20 09:13 119/73 09/22/20 08:00 101.5 117 22 108/88 100 Mechanical Ventilator 15.0 100 09/22/20 07:30 124/68 09/22/20 07:30 124/68 09/22/20 07:18 22 124/68 Mechanical Ventilator 15.0 100 09/22/20 07:00 101.5 120 22 137/75 98 Mechanical Ventilator 100 09/22/20 06:56 118 23 125/79 94 Mechanical Ventilator 100 09/22/20 06:52 73/42 09/22/20 06:41 73/42 09/22/20 06:00 102.1 118 23 84/55 94 Mechanical Ventilator 100 09/22/20 05:15 99.0 117 24 107/82 90 Mechanical Ventilator 100 09/22/20 04:18 22 96/61 Mechanical Ventilator 100 09/22/20 04:10 99.8 118 26 103/62 96 Mechanical Ventilator 100 09/22/20 04:06 90/55 09/22/20 03:15 99.8 118 26 61/52 91 Mechanical Ventilator 100 09/22/20 03:08 116 23 100 09/22/20 02:50 93/66 09/22/20 02:45 75/49 09/22/20 02:29 100 09/22/20 01:45 88/55 09/22/20 01:36 98/54 09/22/20 01:36 20 95/54 Mechanical Ventilator 100 09/22/20 01:31 90/55 09/22/20 01:26 89/46 09/22/20 01:21 52/18 09/22/20 01:21 23 52/18 Mechanical Ventilator 100 09/22/20 01:06 24 139/85 Mechanical Ventilator 100 09/22/20 00:51 150/65 09/22/20 00:51 22 130/87 Mechanical Ventilator 100 09/22/20 00:36 137/93 09/22/20 00:36 20 137/93 Mechanical Ventilator 100 09/22/20 00:30 99.6 91 23 137/93 98 Mechanical Ventilator 100 09/21/20 23:33 92 23 100 09/21/20 23:14 120/71 09/21/20 22:50 99.6 96 18 79/55 96 Mechanical Ventilator 100 09/21/20 22:50 79/55 09/21/20 20:48 108 18 100 09/21/20 20:20 88 41 Non-Rebreather 15.0 09/21/20 20:20 100.4 95 41 104/63 74 Non-Rebreather 15.0 09/21/20 20:11 100.4 88 22 104/63 (77) 96 Nasal Cannula 6.0 Intake and Output 09/21/20 09/22/20 19:00 07:00 Intake Total 20.684 ml Output Total 20 ml Balance 0.684 ml Intake IV Total 20.684 ml Output Urine Total 20 ml Laboratory Tests Test 09/21/20 21:00 09/21/20 21:25 09/21/20 21:30 09/22/20 02:00 White Blood Count 9.4 K/UL (4.8-10.8) Red Blood Count 4.58 M/UL (4.70-6.10) L Hemoglobin 14.5 G/DL (14.2-18.0) Hematocrit 43.1 % (42.0-52.0) Mean Corpuscular Volume 94 FL (80-99) Mean Corpuscular Hemoglobin 31.6 PG (27.0-31.0) H Mean Corpuscular Hemoglobin Concent 33.6 G/DL (32.0-36.0) Red Cell Distribution Width 15.9 % (11.6-14.8) H Platelet Count 105 K/UL (150-450) L Mean Platelet Volume 10.4 FL (6.5-10.1) H Neutrophils (%) (Auto) 75.2 % (45.0-75.0) H Lymphocytes (%) (Auto) 5.9 % (20.0-45.0) L Monocytes (%) (Auto) 17.5 % (1.0-10.0) H Eosinophils (%) (Auto) 0.4 % (0.0-3.0) Basophils (%) (Auto) 1.0 % (0.0-2.0) Prothrombin Time 16.1 SEC (9.30-11.50) H Prothromb Time International Ratio 1.5 (0.9-1.1) H Activated Partial Thromboplast Time 31 SEC (23-33) D-Dimer 1.57 mg/L FEU (0.00-0.49) H Sodium Level 170 MMOL/L (136-145) *H Potassium Level 4.2 MMOL/L (3.5-5.1) Chloride Level 131 MMOL/L (98-107) H Carbon Dioxide Level 29 MMOL/L (21-32) Anion Gap 10 mmol/L (5-15) Blood Urea Nitrogen 72 mg/dL (7-18) H Creatinine 5.0 MG/DL (0.55-1.30) H Estimat Glomerular Filtration Rate 11.4 mL/min (>60) Glucose Level 124 MG/DL (74-106) H Lactic Acid Level 2.00 mmol/L (0.4-2.0) Calcium Level 8.6 MG/DL (8.5-10.1) Ferritin 1085 NG/ML (8-388) H Total Bilirubin 2.5 MG/DL (0.2-1.0) H Direct Bilirubin 1.7 MG/DL (0.0-0.3) H Aspartate Amino Transf (AST/SGOT) 108 U/L (15-37) H Alanine Aminotransferase (ALT/SGPT) 46 U/L (12-78) Alkaline Phosphatase 107 U/L (46-116) Lactate Dehydrogenase 255 U/L (81-234) H Total Creatine Kinase 1842 U/L (26-308) H Creatine Kinase MB 4.4 NG/ML (0.0-3.6) H Creatine Kinase MB Relative Index 0.2 Troponin I 0.140 ng/mL (0.000-0.056) C-Reactive Protein, Quantitative 14.2 mg/dL (0.00-0.90) H Pro-B-Type Natriuretic Peptide 1196 pg/mL (0-125) H Total Protein 8.0 G/DL (6.4-8.2) Albumin 2.7 G/DL (3.4-5.0) L Globulin 5.3 g/dL Albumin/Globulin Ratio 0.5 (1.0-2.7) L Triglycerides Level 185 MG/DL (30-150) H Lipase 321 U/L (73-393) Arterial Blood pH 7.357 (7.350-7.450) 7.319 (7.350-7.450) Arterial Blood Partial Pressure CO2 47.2 mmHg (35.0-45.0) H 38.4 mmHg (35.0-45.0) Arterial Blood Partial Pressure O2 103.7 mmHg (75.0-100.0) H 57.0 mmHg (75.0-100.0) L Arterial Blood HCO3 25.9 mmol/L (22.0-26.0) 19.3 mmol/L (22.0-26.0) L Arterial Blood Oxygen Saturation 97.0 % (95-100) 87.3 % (95-100) *L Arterial Blood Base Excess -0.1 (-2-2) -6.2 (-2-2) L Kush Test Positive Positive Urine Color Brown Urine Appearance Cloudy Urine pH 5 (4.5-8.0) Urine Specific [place] 1.025 (1.005-1.035) Urine Protein 3+ (NEGATIVE) H Urine Glucose (UA) Negative (NEGATIVE) Urine Ketones 1+ (NEGATIVE) H Urine Blood 5+ (NEGATIVE) H Urine Nitrite Positive (NEGATIVE) H Urine Bilirubin 2+ (NEGATIVE) H Urine Ictotest Negative (NEGATIVE) Urine Urobilinogen 8 MG/DL (0.0-1.0) H Urine Leukocyte Esterase 3+ (NEGATIVE) H Urine RBC 20-30 /HPF (0 - 0) H Urine WBC Tntc /HPF (0 - 0) H Urine Squamous Epithelial Cells Few /LPF (NONE/OCC) Urine Bacteria Many /HPF (NONE) H Test 09/22/20 04:30 Arterial Blood pH 7.312 (7.350-7.450) Arterial Blood Partial Pressure CO2 37.2 mmHg (35.0-45.0) Arterial Blood Partial Pressure O2 59.2 mmHg (75.0-100.0) L Arterial Blood HCO3 18.4 mmol/L (22.0-26.0) L Arterial Blood Oxygen Saturation 87.3 % (95-100) *L Arterial Blood Base Excess -7.1 (-2-2) L Kush Test Positive Microbiology Date/Time Source Procedure Growth Status 09/21/20 22:02 Nasopharynx SARS-CoV-2 RdRp Gene Assay - Final Complete Height (Feet): 5 Height (Inches): 9.00 Weight (Pounds): 190 Medications Current Medications Medications (Trade) Dose Ordered Sig/Fabrizio Route PRN Reason Start Time Stop Time Status Last Admin Dose Admin Acetaminophen (Tylenol) 650 mg Q4H PRN ORAL fever 09/21/20 23:45 10/21/20 23:44 Albuterol/ Ipratropium (Albuterol/ Ipratropium) 3 ml Q4H PRN HHN Shortness of Breath 09/21/20 23:45 09/26/20 23:44 Amikacin Protocol (Amikacin pharmacy to dose) 1 ea DAILY PRN MISC . 09/22/20 05:00 10/22/20 04:59 Chlorhexidine Gluconate (Jennifer-Hex 2%) 1 applic DAILY@2000 TOPIC 09/22/20 20:00 12/21/20 19:59 Dopamine HCl/ Dextrose 250 ml @ 0 mls/hr Q24H IV 09/22/20 09:00 09/25/20 08:59 Ertapenem 0.5 gm/ Sodium Chloride 55 ml @ 110 mls/hr Q24H IV 09/22/20 04:00 09/27/20 03:59 Haloperidol Lactate (Haldol) 5 mg Q6H PRN IM Agitation 09/21/20 23:45 11/05/20 23:44 Heparin Sodium (Porcine) (Heparin 5000 units/ml) 5,000 units EVERY 12 HOURS SUBQ 09/22/20 09:00 11/06/20 08:59 09/22/20 09:14 Iohexol (Omnipaque 350 100ml) 100 ml NOW PRN INJ Radiology Procedure 09/21/20 21:45 09/23/20 21:44 Lorazepam (Ativan 2mg/ml 1ml) 2 mg Q2H PRN IV For Anxiety 09/21/20 23:45 09/28/20 23:44 Morphine Sulfate (Morphine Sulfate) 4 mg Q4H PRN IVP Severe Pain (Pain Scale 7-10) 09/21/20 23:45 09/28/20 23:44 Norepinephrine Bitartrate 250 ml @ 0 mls/hr Q24H IV 09/22/20 08:45 09/25/20 08:42 09/22/20 09:13 Ondansetron HCl (Zofran) 4 mg Q6H PRN IVP Nausea & Vomiting 09/21/20 23:45 10/21/20 23:44 Pantoprazole (Protonix) 40 mg DAILY IVP 09/22/20 09:00 10/22/20 08:59 09/22/20 09:13 Phenylephrine HCl 50 mg/Dextrose 250 ml @ 0 mls/hr Q24H IV 09/22/20 08:45 09/25/20 08:42 Polyethylene Glycol (Miralax) 17 gm DAILYPRN PRN ORAL Constipation 09/21/20 23:45 10/21/20 23:44 Sodium Chloride 1,000 ml @ 100 mls/hr Q10H IVLG 09/21/20 23:45 10/21/20 23:44 09/22/20 09:15 Vancomycin HCl (Vanco pharmacy to dose) 1 ea DAILY PRN MISC PER RX PROTOCOL 09/22/20 07:45 10/22/20 07:44 Vancomycin HCl 750 mg/Sodium Chloride 275 ml @ 183.333 mls/hr ONCE ONCE IVPB 09/22/20 10:00 09/22/20 11:29 Vasopressin 100 units/Sodium Chloride 100 ml @ 0 mls/hr Q24H IV 09/22/20 09:00 09/25/20 08:59 Assessment/Plan Assessment/Plan: 75yo M with: Septic shock CODE BLUE 09/21, s/p ROSC Pneumonia, c/f aspiration Hypoxic resp failure s/p intubation 09/21 R/o UTI Hypotension on pressors ANGI, Cr in 5s Elevated AST to 100s Febrile Normal WBC Lymphopenia 09/21 BCx p UA+ UCx p Resp cx p COVID rapid neg, PCR p CT chest: 1. Almost complete opacification of the left mainstem bronchus, segmental and subsegmental bronchi with presumed debris. Tree-in-bud nodularity along with patchy airspace consolidations are identified in the bilateral lower lobes, left greater than right. Constellation of findings are suspicious for aspiration pneumonia. 2. Left lower lobe and lingular subsegmental atelectasis. 3. 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 HyperNa to 170 on admission ANGI on CKD, Cr in 5s, worsening SNF resident Dementia Plan: Start meropenem #1 Cont vanco IV #2 COVID PCR F/u BCx, UCx, Resp cx 09/22 SP amikacin x1 09/21 SP Zosyn in ED Monitor CBC/CMP Monitor temp curve, hemodynamics Monitor resp status D/w RN Thank you for this consult. [facility] will continue to follow. Rosaura vAiles M.D. Sep 22, 2020 09:21
[2020-09-22] MEDS ORDERED: Meropenem 1 GM in NS 55 ML IVPB SCH (09:30)
--- NOTE | 2020-09-22 09:30 | NUR ---
NURSE NOTES: ABG results relayed to Dr Byrne. Awaiting call back. NS IV fluid on hold - waiting for clarification order from Dr Byrne (serum Na 170).
[2020-09-22] MEDS ORDERED: Vancomycin 750mg/NS 275ml IVPB ONE ×2 (10:00)
[2020-09-22] MEDS: Meropenem 500mg/NS 55ml IVPB SCH ×4 (10:12→21:00)
--- NOTE | 2020-09-22 10:13 | NUR ---
NURSE NOTES: Received call back from Dr Byrne with OK to start pt on NS at 100 cc/hr. serum sodium noted. Awaiting further orders for ABG correction. Forwarded recent ABG results to Dr Rothman at this time. Awaiting response.
[2020-09-22 10:35] LABS: HEMATOCRIT 43.3 % (42.0-52.0); HEMOGLOBIN 14.1 G/DL (14.2-18.0); MEAN CORPUSCULAR VOLUME 97 FL (80-99); PLATELET COUNT 85 K/UL (150-450); RED BLOOD COUNT 4.48 M/UL (4.70-6.10); RED CELL DISTRIBUTION WIDTH 16.2 % (11.6-14.8); WHITE BLOOD COUNT 5.8 K/UL (4.8-10.8)
--- NOTE | 2020-09-22 10:38 | Consultation ---
Consult Note Consult Note I am asked to evaluate the patient at the request of Dr. Rothman for renal failure Patient is known to me from his previous admission In August the patient was discharged with normal renal parameters Patient seen in ICU room B Discussed with KRYSTYNA Roca reviewed Patient intubated on ventilator and on 3 pressors Patient has a Whiting catheter with scant urine output Patient was intubated in the emergency room and put on pressors and later was coded once Emergency room note: HPI 83-year-old intermediate patient with history of dementia here with shortness of breath. Patient did have a negative Covid test several weeks ago. However over the past 24 hours the patient has had a rhonchorous productive cough and is appearing more short of breath tonight. When paramedics arrived the patient an option saturation 90% on room air. They placed him on a 6 L nasal cannula. This resolved the patient's hypoxia and he had a 96% oxygen saturation. However when patient was brought into the emergency department he was highly tachypneic and had an oxygen saturation of 70% on a nonrebreather mask. He was in acute distress and had severe altered mental status. Patient was emergently intubated. Allergies: Coded Allergies: No Known Allergies (Unverified , 07/22/20) PHYSICAL EXAMINATION: VITAL SIGNS: Blood pressure of 96/61 as well as 81/62, pulse is 175, respirations 18. HEAD AND NECK: Orally intubated. LUNGS: Coarse rhonchi. CARDIOVASCULAR: Irregular irregular. Tachycardic S1 and S2 with no gallop. ABDOMEN: Soft. EXTREMITIES: No pitting edema. LABORATORY AND DIAGNOSTIC DATA: His labs show white count of 5.8, hemoglobin 14.1, hematocrit of 43, and platelet count is 85. Sodium was 170. BUN of 72, creatinine of 5.9, glucose of 203. Troponin is 1.14. . Assessment/Plan Impression: Sepsis, shock Acute renal failure Acute respiratory failure Hypernatremia, dehydration Non-STEMI Suggestions: Fluid challenge IV hydration Albumin 5% Water through NG tube Monitor renal parameters Antibiotics Urine studies Avoid nephrotoxic's Poor prognosis Patient full code Per orders Gelacio Mata MD Sep 22, 2020 10:38
--- NOTE | 2020-09-22 10:40 | NUR ---
RADIOLOGY DEPT., CHEST X-RAY POST CODE BLUE AND ABDOMEN X-RAY FOR N/GT PLCMT COMPLETED.-P.DYE
--- NOTE | 2020-09-22 10:44 | NUR ---
NURSE NOTES: Received telephone order from Dr Byrne to increase TV to 650 and peep to 8.
[2020-09-22 10:49] LABS: ALANINE AMINOTRANSFERASE 41 U/L (12-78); ALBUMIN/GLOBULIN RATIO 0.4 (1.0-2.7); ALKALINE PHOSPHATASE 101 U/L (46-116); ANION GAP 16 mmol/L (5-15); ASPARTATE AMINO TRANSFERASE 124 U/L (15-37); BILIRUBIN,DIRECT 1.8 MG/DL (0.0-0.3); BILIRUBIN,TOTAL 2.6 MG/DL (0.2-1.0); BLOOD UREA NITROGEN 71 mg/dL (7-18); CALCIUM 7.2 MG/DL (8.5-10.1); CARBON DIOXIDE 20 MMOL/L (21-32); CHLORIDE 128 MMOL/L (98-107); CREATININE 5.9 MG/DL (0.55-1.30); POTASSIUM 3.6 MMOL/L (3.5-5.1)
[2020-09-22 10:51] LABS: SODIUM 164 MMOL/L (136-145)
--- NOTE | 2020-09-22 10:52 | NUR ---
NURSE NOTES: Dr Mata assessing pt at bedside. recent BMP currently being reviewed. serum sodium of [address] Mata states he will place orders.
--- NOTE | 2020-09-22 11:01 | NUR ---
NURSE NOTES: Pt seen by Dr Aviles.
[2020-09-22] MEDS: D5 1/4NS 1000ml 1,000 ML IV SCH ×3 (11:10→21:00)
--- NOTE | 2020-09-22 11:23 | Diagnostic Imaging Report ---
Indication: Post nasogastric tube placement Technique: Supine view of the upper abdomen Comparison: none Findings: Nasogastric tube tip projects at the level of the gastric fundus, in satisfactory position. Bowel gas pattern is unremarkable. There is a right groin central venous catheter. Pacemaker leads are noted as is a defibrillator paddle. Impression: Satisfactory nasogastric intubation Other findings as noted
--- NOTE | 2020-09-22 11:26 | Diagnostic Imaging Report ---
Indication: Dyspnea, status post CODE BLUE Technique: One view of the chest Comparison: 09/21/2020 Findings: Stable satisfactory position of endotracheal tube. Interim placement of a nasogastric tube, tip projected at the level gastric fundus. A chest pacemaker is again demonstrated. Defibrillator paddles are noted. There is new or increased pleural fluid at the left lung base. There is also a small amount of atelectasis at the left lung base and in the left perihilar region. There lungs are otherwise clear. There is trace right pleural fluid now present. Impression: Developing small bilateral pleural effusions. Left basilar atelectasis There is a small amount of consolidation in the retrocardiac region, new or increased, new or increased
--- NOTE | 2020-09-22 11:32 | Diagnostic Imaging Report ---
Indication: Reason For Exam: DVT Technique: Grayscale and duplex images of the bilateral lower extremity veins Comparison: None Findings: Bilaterally, grayscale and duplex images demonstrate no evidence of intraluminal thrombus. Normal phasic Doppler waveforms, demonstrating normal augmentation response and no evidence of valvular insufficiency. Greater saphenous vein(s) and tibial veins are patent. Normal compressibility. There is a right groin central venous catheter Impression: Negative for evidence of lower extremity deep venous thrombosis bilaterally Right groin central venous catheter is incidentally noted
--- NOTE | 2020-09-22 11:57 | NUR ---
NURSE NOTES: Dr Rea assessing pt at bedside AFIB w/ RVR noted. Received order to give 0.25 mg digoxin IVP once now and taper off dopamine and start phenylephedrine to maintain SBP > 90.
[2020-09-22] MEDS ORDERED: Digoxin 0.5mg/2ml Inj IVP SCH (12:00)
[2020-09-22 12:03] LABS: PHOSPHORUS 2.6 MG/DL (2.5-4.9)
--- NOTE | 2020-09-22 12:40 | Pulmonolgy Critical Care Note ---
Critical Care - Asmt/Plan Problems: (1) Multiorgan failure (2) Septic shock (3) Acute respiratory failure (4) Rapid atrial fibrillation (5) ARF (acute renal failure) (6) Pulseless ventricular tachycardia (7) Cardiopulmonary arrest (8) Schizoaffective disorder Respiratory: monitor respiratory rate, adjust FIO2, CXR Cardiac: continue pressors, continue to monitor HR/BP Renal: F/U I&O, increase IV fluid, check electrolytes Infectious Disease: check cultures Gastrointestinal: continue feedings/current rate Endocrine: monitor blood sugar Hematologic: monitor H/H, transfuse if hgb<8.5 Neurologic: PRN Ativan, keep patient comfortable Affect: PRN ativan Time Spent (Minutes): 40 Notes Reviewed: child care cook, renal Discussed with: nurses, consultants, 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 - Objective Last 24 Hour Vital Signs Date Time Temp Pulse Resp B/P (MAP) Pulse Ox O2 Delivery O2 Flow Rate FiO2 09/22/20 12:03 175 09/22/20 12:00 170 96/61 09/22/20 11:41 111/81 09/22/20 10:45 100 09/22/20 10:30 81/62 09/22/20 09:13 119/73 09/22/20 08:10 100 09/22/20 08:00 101.5 117 22 108/88 100 Mechanical Ventilator 15.0 100 09/22/20 07:30 124/68 09/22/20 07:30 124/68 09/22/20 07:18 22 124/68 Mechanical Ventilator 15.0 100 09/22/20 07:00 101.5 120 22 137/75 98 Mechanical Ventilator 100 09/22/20 06:56 118 23 125/79 94 Mechanical Ventilator 100 09/22/20 06:52 73/42 09/22/20 06:41 73/42 09/22/20 06:00 102.1 118 23 84/55 94 Mechanical Ventilator 100 09/22/20 05:15 99.0 117 24 107/82 90 Mechanical Ventilator 100 09/22/20 04:18 22 96/61 Mechanical Ventilator 100 09/22/20 04:10 99.8 118 26 103/62 96 Mechanical Ventilator 100 09/22/20 04:06 90/55 09/22/20 03:15 99.8 118 26 61/52 91 Mechanical Ventilator 100 09/22/20 03:08 116 23 100 09/22/20 02:50 93/66 09/22/20 02:45 75/49 09/22/20 02:29 100 09/22/20 01:45 88/55 09/22/20 01:36 98/54 09/22/20 01:36 20 95/54 Mechanical Ventilator 100 09/22/20 01:31 90/55 09/22/20 01:26 89/46 09/22/20 01:21 52/18 09/22/20 01:21 23 52/18 Mechanical Ventilator 100 09/22/20 01:06 24 139/85 Mechanical Ventilator 100 09/22/20 00:51 150/65 09/22/20 00:51 22 130/87 Mechanical Ventilator 100 09/22/20 00:36 137/93 09/22/20 00:36 20 137/93 Mechanical Ventilator 100 09/22/20 00:30 99.6 91 23 137/93 98 Mechanical Ventilator 100 09/21/20 23:33 92 23 100 09/21/20 23:14 120/71 09/21/20 22:50 99.6 96 18 79/55 96 Mechanical Ventilator 100 09/21/20 22:50 79/55 09/21/20 20:48 108 18 100 09/21/20 20:20 88 41 Non-Rebreather 15.0 09/21/20 20:20 100.4 95 41 104/63 74 Non-Rebreather 15.0 09/21/20 20:11 100.4 88 22 104/63 (77) 96 Nasal Cannula 6.0 Status: sedated Condition: grave HEENT: atraumatic, normocephalic Lungs: rales, rhonchi Heart: HR/BP unstable Abdomen: soft, non-tender Extremities: no C/C/E Micro: Microbiology Date/Time Source Procedure Growth Status 09/21/20 22:02 Nasopharynx SARS-CoV-2 RdRp Gene Assay - Final Complete Critical Care - Subjective Interval Events: 83-year-old senior living patient with history of dementia presented to ER with CC of productive cough and is appearing more short of breath tonight. When paramedics arrived the patient an option saturation 90% on room air. They placed him on a 6 L nasal cannula. This resolved the patient's hypoxia and he had a 96% oxygen saturation. However when patient was brought into the emergency department he was highly tachypneic and had an oxygen saturation of 70% on a nonrebreather mask. He was in acute distress and had severe altered mental status. Patient was emergently intubated in ER and was started on pressors. FI02: 100 Vent Support Breath Rate: 16 Vent Support Mode: AC Vent Tidal Volume: 650 Sputum Amount: Scant PEEP: 8.0 PIP: 34 I&O: Intake and Output 09/21/20 09/22/20 19:00 07:00 Intake Total 20.684 ml Output Total 20 ml Balance 0.684 ml Intake IV Total 20.684 ml Output Urine Total 20 ml CXR: ET in good position ET-Tube: 7.5 ET Position: 25 Labs: Laboratory Tests Test 09/21/20 21:00 09/21/20 21:25 09/21/20 21:30 09/22/20 02:00 White Blood Count 9.4 K/UL (4.8-10.8) Red Blood Count 4.58 M/UL (4.70-6.10) L Hemoglobin 14.5 G/DL (14.2-18.0) Hematocrit 43.1 % (42.0-52.0) Mean Corpuscular Volume 94 FL (80-99) Mean Corpuscular Hemoglobin 31.6 PG (27.0-31.0) H Mean Corpuscular Hemoglobin Concent 33.6 G/DL (32.0-36.0) Red Cell Distribution Width 15.9 % (11.6-14.8) H Platelet Count 105 K/UL (150-450) L Mean Platelet Volume 10.4 FL (6.5-10.1) H Neutrophils (%) (Auto) 75.2 % (45.0-75.0) H Lymphocytes (%) (Auto) 5.9 % (20.0-45.0) L Monocytes (%) (Auto) 17.5 % (1.0-10.0) H Eosinophils (%) (Auto) 0.4 % (0.0-3.0) Basophils (%) (Auto) 1.0 % (0.0-2.0) Prothrombin Time 16.1 SEC (9.30-11.50) H Prothromb Time International Ratio 1.5 (0.9-1.1) H Activated Partial Thromboplast Time 31 SEC (23-33) D-Dimer 1.57 mg/L FEU (0.00-0.49) H Sodium Level 170 MMOL/L (136-145) *H Potassium Level 4.2 MMOL/L (3.5-5.1) Chloride Level 131 MMOL/L (98-107) H Carbon Dioxide Level 29 MMOL/L (21-32) Anion Gap 10 mmol/L (5-15) Blood Urea Nitrogen 72 mg/dL (7-18) H Creatinine 5.0 MG/DL (0.55-1.30) H Estimat Glomerular Filtration Rate 11.4 mL/min (>60) Glucose Level 124 MG/DL (74-106) H Lactic Acid Level 2.00 mmol/L (0.4-2.0) Calcium Level 8.6 MG/DL (8.5-10.1) Ferritin 1085 NG/ML (8-388) H Total Bilirubin 2.5 MG/DL (0.2-1.0) H Direct Bilirubin 1.7 MG/DL (0.0-0.3) H Aspartate Amino Transf (AST/SGOT) 108 U/L (15-37) H Alanine Aminotransferase (ALT/SGPT) 46 U/L (12-78) Alkaline Phosphatase 107 U/L (46-116) Lactate Dehydrogenase 255 U/L (81-234) H Total Creatine Kinase 1842 U/L (26-308) H Creatine Kinase MB 4.4 NG/ML (0.0-3.6) H Creatine Kinase MB Relative Index 0.2 Troponin I 0.140 ng/mL (0.000-0.056) C-Reactive Protein, Quantitative 14.2 mg/dL (0.00-0.90) H Pro-B-Type Natriuretic Peptide 1196 pg/mL (0-125) H Total Protein 8.0 G/DL (6.4-8.2) Albumin 2.7 G/DL (3.4-5.0) L Globulin 5.3 g/dL Albumin/Globulin Ratio 0.5 (1.0-2.7) L Triglycerides Level 185 MG/DL (30-150) H Lipase 321 U/L (73-393) Arterial Blood pH 7.357 (7.350-7.450) 7.319 (7.350-7.450) Arterial Blood Partial Pressure CO2 47.2 mmHg (35.0-45.0) H 38.4 mmHg (35.0-45.0) Arterial Blood Partial Pressure O2 103.7 mmHg (75.0-100.0) H 57.0 mmHg (75.0-100.0) L Arterial Blood HCO3 25.9 mmol/L (22.0-26.0) 19.3 mmol/L (22.0-26.0) L Arterial Blood Oxygen Saturation 97.0 % (95-100) 87.3 % (95-100) *L Arterial Blood Base Excess -0.1 (-2-2) -6.2 (-2-2) L Kush Test Positive Positive Urine Color Brown Urine Appearance Cloudy Urine pH 5 (4.5-8.0) Urine Specific [place] 1.025 (1.005-1.035) Urine Protein 3+ (NEGATIVE) H Urine Glucose (UA) Negative (NEGATIVE) Urine Ketones 1+ (NEGATIVE) H Urine Blood 5+ (NEGATIVE) H Urine Nitrite Positive (NEGATIVE) H Urine Bilirubin 2+ (NEGATIVE) H Urine Ictotest Negative (NEGATIVE) Urine Urobilinogen 8 MG/DL (0.0-1.0) H Urine Leukocyte Esterase 3+ (NEGATIVE) H Urine RBC 20-30 /HPF (0 - 0) H Urine WBC Tntc /HPF (0 - 0) H Urine Squamous Epithelial Cells Few /LPF (NONE/OCC) Urine Bacteria Many /HPF (NONE) H Test 09/22/20 04:30 09/22/20 08:54 09/22/20 09:35 Arterial Blood pH 7.312 (7.350-7.450) 7.240 (7.350-7.450) Arterial Blood Partial Pressure CO2 37.2 mmHg (35.0-45.0) 38.8 mmHg (35.0-45.0) Arterial Blood Partial Pressure O2 59.2 mmHg (75.0-100.0) L 132.2 mmHg (75.0-100.0) H Arterial Blood HCO3 18.4 mmol/L (22.0-26.0) L 16.3 mmol/L (22.0-26.0) *L Arterial Blood Oxygen Saturation 87.3 % (95-100) *L 98.0 % (95-100) Arterial Blood Base Excess -7.1 (-2-2) L -10.4 (-2-2) *L Kush Test Positive Positive White Blood Count 5.8 K/UL (4.8-10.8) Red Blood Count 4.48 M/UL (4.70-6.10) L Hemoglobin 14.1 G/DL (14.2-18.0) L Hematocrit 43.3 % (42.0-52.0) Mean Corpuscular Volume 97 FL (80-99) Mean Corpuscular Hemoglobin 31.6 PG (27.0-31.0) H Mean Corpuscular Hemoglobin Concent 32.6 G/DL (32.0-36.0) Red Cell Distribution Width 16.2 % (11.6-14.8) H Platelet Count 85 K/UL (150-450) L Mean Platelet Volume 11.1 FL (6.5-10.1) H Neutrophils (%) (Auto) % (45.0-75.0) Lymphocytes (%) (Auto) % (20.0-45.0) Monocytes (%) (Auto) % (1.0-10.0) Eosinophils (%) (Auto) % (0.0-3.0) Basophils (%) (Auto) % (0.0-2.0) Differential Total Cells Counted 100 Neutrophils % (Manual) 91 % (45-75) H Lymphocytes % (Manual) 6 % (20-45) L Monocytes % (Manual) 3 % (1-10) Eosinophils % (Manual) 0 % (0-3) Basophils % (Manual) 0 % (0-2) Band Neutrophils 0 % (0-8) Platelet Estimate Decreased L Platelet Morphology Normal Anisocytosis 1+ Sodium Level 164 MMOL/L (136-145) *H Potassium Level 3.6 MMOL/L (3.5-5.1) Chloride Level 128 MMOL/L (98-107) H Carbon Dioxide Level 20 MMOL/L (21-32) L Anion Gap 16 mmol/L (5-15) H Blood Urea Nitrogen 71 mg/dL (7-18) H Creatinine 5.9 MG/DL (0.55-1.30) H Estimat Glomerular Filtration Rate 9.4 mL/min (>60) Glucose Level 203 MG/DL (74-106) H Uric Acid 13.3 MG/DL (2.6-7.2) H Calcium Level 7.2 MG/DL (8.5-10.1) L Phosphorus Level 2.6 MG/DL (2.5-4.9) Magnesium Level 2.0 MG/DL (1.8-2.4) Total Bilirubin 2.6 MG/DL (0.2-1.0) H Direct Bilirubin 1.8 MG/DL (0.0-0.3) H Aspartate Amino Transf (AST/SGOT) 124 U/L (15-37) H Alanine Aminotransferase (ALT/SGPT) 41 U/L (12-78) Alkaline Phosphatase 101 U/L (46-116) Total Protein 6.7 G/DL (6.4-8.2) Albumin 2.0 G/DL (3.4-5.0) L Globulin 4.7 g/dL Albumin/Globulin Ratio 0.4 (1.0-2.7) L Jaclyn Byrne MD Sep 22, 2020 12:40
--- NOTE | 2020-09-22 12:45 | NUR ---
NURSE NOTES: Pt seen by Dr Byrne. All labs reviewed. Pt condition discussed.
--- NOTE | 2020-09-22 12:48 | Cardiac Electrophysiology PN ---
Subjective Subjective [id number] Objective Last 24 Hour Vital Signs Date Time Temp Pulse Resp B/P (MAP) Pulse Ox O2 Delivery O2 Flow Rate FiO2 09/22/20 12:03 175 09/22/20 12:00 170 96/61 09/22/20 11:41 111/81 09/22/20 10:45 100 09/22/20 10:30 81/62 09/22/20 09:13 119/73 09/22/20 08:10 100 09/22/20 08:00 101.5 117 22 108/88 100 Mechanical Ventilator 15.0 100 09/22/20 07:30 124/68 09/22/20 07:30 124/68 09/22/20 07:18 22 124/68 Mechanical Ventilator 15.0 100 09/22/20 07:00 101.5 120 22 137/75 98 Mechanical Ventilator 100 09/22/20 06:56 118 23 125/79 94 Mechanical Ventilator 100 09/22/20 06:52 73/42 09/22/20 06:41 73/42 09/22/20 06:00 102.1 118 23 84/55 94 Mechanical Ventilator 100 09/22/20 05:15 99.0 117 24 107/82 90 Mechanical Ventilator 100 09/22/20 04:18 22 96/61 Mechanical Ventilator 100 09/22/20 04:10 99.8 118 26 103/62 96 Mechanical Ventilator 100 09/22/20 04:06 90/55 09/22/20 03:15 99.8 118 26 61/52 91 Mechanical Ventilator 100 09/22/20 03:08 116 23 100 09/22/20 02:50 93/66 09/22/20 02:45 75/49 09/22/20 02:29 100 09/22/20 01:45 88/55 09/22/20 01:36 98/54 09/22/20 01:36 20 95/54 Mechanical Ventilator 100 09/22/20 01:31 90/55 09/22/20 01:26 89/46 09/22/20 01:21 52/18 09/22/20 01:21 23 52/18 Mechanical Ventilator 100 09/22/20 01:06 24 139/85 Mechanical Ventilator 100 09/22/20 00:51 150/65 09/22/20 00:51 22 130/87 Mechanical Ventilator 100 09/22/20 00:36 137/93 09/22/20 00:36 20 137/93 Mechanical Ventilator 100 09/22/20 00:30 99.6 91 23 137/93 98 Mechanical Ventilator 100 09/21/20 23:33 92 23 100 09/21/20 23:14 120/71 09/21/20 22:50 99.6 96 18 79/55 96 Mechanical Ventilator 100 09/21/20 22:50 79/55 09/21/20 20:48 108 18 100 09/21/20 20:20 88 41 Non-Rebreather 15.0 09/21/20 20:20 100.4 95 41 104/63 74 Non-Rebreather 15.0 09/21/20 20:11 100.4 88 22 104/63 (77) 96 Nasal Cannula 6.0 Intake and Output 09/21/20 09/22/20 19:00 07:00 Intake Total 20.684 ml Output Total 20 ml Balance 0.684 ml Intake IV Total 20.684 ml Output Urine Total 20 ml Laboratory Tests Test 09/21/20 21:00 09/21/20 21:25 09/21/20 21:30 09/22/20 02:00 White Blood Count 9.4 K/UL (4.8-10.8) Red Blood Count 4.58 M/UL (4.70-6.10) L Hemoglobin 14.5 G/DL (14.2-18.0) Hematocrit 43.1 % (42.0-52.0) Mean Corpuscular Volume 94 FL (80-99) Mean Corpuscular Hemoglobin 31.6 PG (27.0-31.0) H Mean Corpuscular Hemoglobin Concent 33.6 G/DL (32.0-36.0) Red Cell Distribution Width 15.9 % (11.6-14.8) H Platelet Count 105 K/UL (150-450) L Mean Platelet Volume 10.4 FL (6.5-10.1) H Neutrophils (%) (Auto) 75.2 % (45.0-75.0) H Lymphocytes (%) (Auto) 5.9 % (20.0-45.0) L Monocytes (%) (Auto) 17.5 % (1.0-10.0) H Eosinophils (%) (Auto) 0.4 % (0.0-3.0) Basophils (%) (Auto) 1.0 % (0.0-2.0) Prothrombin Time 16.1 SEC (9.30-11.50) H Prothromb Time International Ratio 1.5 (0.9-1.1) H Activated Partial Thromboplast Time 31 SEC (23-33) D-Dimer 1.57 mg/L FEU (0.00-0.49) H Sodium Level 170 MMOL/L (136-145) *H Potassium Level 4.2 MMOL/L (3.5-5.1) Chloride Level 131 MMOL/L (98-107) H Carbon Dioxide Level 29 MMOL/L (21-32) Anion Gap 10 mmol/L (5-15) Blood Urea Nitrogen 72 mg/dL (7-18) H Creatinine 5.0 MG/DL (0.55-1.30) H Estimat Glomerular Filtration Rate 11.4 mL/min (>60) Glucose Level 124 MG/DL (74-106) H Lactic Acid Level 2.00 mmol/L (0.4-2.0) Calcium Level 8.6 MG/DL (8.5-10.1) Ferritin 1085 NG/ML (8-388) H Total Bilirubin 2.5 MG/DL (0.2-1.0) H Direct Bilirubin 1.7 MG/DL (0.0-0.3) H Aspartate Amino Transf (AST/SGOT) 108 U/L (15-37) H Alanine Aminotransferase (ALT/SGPT) 46 U/L (12-78) Alkaline Phosphatase 107 U/L (46-116) Lactate Dehydrogenase 255 U/L (81-234) H Total Creatine Kinase 1842 U/L (26-308) H Creatine Kinase MB 4.4 NG/ML (0.0-3.6) H Creatine Kinase MB Relative Index 0.2 Troponin I 0.140 ng/mL (0.000-0.056) C-Reactive Protein, Quantitative 14.2 mg/dL (0.00-0.90) H Pro-B-Type Natriuretic Peptide 1196 pg/mL (0-125) H Total Protein 8.0 G/DL (6.4-8.2) Albumin 2.7 G/DL (3.4-5.0) L Globulin 5.3 g/dL Albumin/Globulin Ratio 0.5 (1.0-2.7) L Triglycerides Level 185 MG/DL (30-150) H Lipase 321 U/L (73-393) Arterial Blood pH 7.357 (7.350-7.450) 7.319 (7.350-7.450) Arterial Blood Partial Pressure CO2 47.2 mmHg (35.0-45.0) H 38.4 mmHg (35.0-45.0) Arterial Blood Partial Pressure O2 103.7 mmHg (75.0-100.0) H 57.0 mmHg (75.0-100.0) L Arterial Blood HCO3 25.9 mmol/L (22.0-26.0) 19.3 mmol/L (22.0-26.0) L Arterial Blood Oxygen Saturation 97.0 % (95-100) 87.3 % (95-100) *L Arterial Blood Base Excess -0.1 (-2-2) -6.2 (-2-2) L Kush Test Positive Positive Urine Color Brown Urine Appearance Cloudy Urine pH 5 (4.5-8.0) Urine Specific [place] 1.025 (1.005-1.035) Urine Protein 3+ (NEGATIVE) H Urine Glucose (UA) Negative (NEGATIVE) Urine Ketones 1+ (NEGATIVE) H Urine Blood 5+ (NEGATIVE) H Urine Nitrite Positive (NEGATIVE) H Urine Bilirubin 2+ (NEGATIVE) H Urine Ictotest Negative (NEGATIVE) Urine Urobilinogen 8 MG/DL (0.0-1.0) H Urine Leukocyte Esterase 3+ (NEGATIVE) H Urine RBC 20-30 /HPF (0 - 0) H Urine WBC Tntc /HPF (0 - 0) H Urine Squamous Epithelial Cells Few /LPF (NONE/OCC) Urine Bacteria Many /HPF (NONE) H Test 09/22/20 04:30 09/22/20 08:54 09/22/20 09:35 Arterial Blood pH 7.312 (7.350-7.450) 7.240 (7.350-7.450) Arterial Blood Partial Pressure CO2 37.2 mmHg (35.0-45.0) 38.8 mmHg (35.0-45.0) Arterial Blood Partial Pressure O2 59.2 mmHg (75.0-100.0) L 132.2 mmHg (75.0-100.0) H Arterial Blood HCO3 18.4 mmol/L (22.0-26.0) L 16.3 mmol/L (22.0-26.0) *L Arterial Blood Oxygen Saturation 87.3 % (95-100) *L 98.0 % (95-100) Arterial Blood Base Excess -7.1 (-2-2) L -10.4 (-2-2) *L Kush Test Positive Positive White Blood Count 5.8 K/UL (4.8-10.8) Red Blood Count 4.48 M/UL (4.70-6.10) L Hemoglobin 14.1 G/DL (14.2-18.0) L Hematocrit 43.3 % (42.0-52.0) Mean Corpuscular Volume 97 FL (80-99) Mean Corpuscular Hemoglobin 31.6 PG (27.0-31.0) H Mean Corpuscular Hemoglobin Concent 32.6 G/DL (32.0-36.0) Red Cell Distribution Width 16.2 % (11.6-14.8) H Platelet Count 85 K/UL (150-450) L Mean Platelet Volume 11.1 FL (6.5-10.1) H Neutrophils (%) (Auto) % (45.0-75.0) Lymphocytes (%) (Auto) % (20.0-45.0) Monocytes (%) (Auto) % (1.0-10.0) Eosinophils (%) (Auto) % (0.0-3.0) Basophils (%) (Auto) % (0.0-2.0) Differential Total Cells Counted 100 Neutrophils % (Manual) 91 % (45-75) H Lymphocytes % (Manual) 6 % (20-45) L Monocytes % (Manual) 3 % (1-10) Eosinophils % (Manual) 0 % (0-3) Basophils % (Manual) 0 % (0-2) Band Neutrophils 0 % (0-8) Platelet Estimate Decreased L Platelet Morphology Normal Anisocytosis 1+ Sodium Level 164 MMOL/L (136-145) *H Potassium Level 3.6 MMOL/L (3.5-5.1) Chloride Level 128 MMOL/L (98-107) H Carbon Dioxide Level 20 MMOL/L (21-32) L Anion Gap 16 mmol/L (5-15) H Blood Urea Nitrogen 71 mg/dL (7-18) H Creatinine 5.9 MG/DL (0.55-1.30) H Estimat Glomerular Filtration Rate 9.4 mL/min (>60) Glucose Level 203 MG/DL (74-106) H Uric Acid 13.3 MG/DL (2.6-7.2) H Calcium Level 7.2 MG/DL (8.5-10.1) L Phosphorus Level 2.6 MG/DL (2.5-4.9) Magnesium Level 2.0 MG/DL (1.8-2.4) Total Bilirubin 2.6 MG/DL (0.2-1.0) H Direct Bilirubin 1.8 MG/DL (0.0-0.3) H Aspartate Amino Transf (AST/SGOT) 124 U/L (15-37) H Alanine Aminotransferase (ALT/SGPT) 41 U/L (12-78) Alkaline Phosphatase 101 U/L (46-116) Total Protein 6.7 G/DL (6.4-8.2) Albumin 2.0 G/DL (3.4-5.0) L Globulin 4.7 g/dL Albumin/Globulin Ratio 0.4 (1.0-2.7) L Microbiology Date/Time Source Procedure Growth Status 09/21/20 22:02 Nasopharynx SARS-CoV-2 RdRp Gene Assay - Final Complete Carlos Eduardo Crespo MD Sep 22, 2020 12:48
--- NOTE | 2020-09-22 12:52 | History & Physical ---
History and Physical History & Physicial Dictated for Int Med-Dr Rothman no. [id number]. Shai Zimmer MD Sep 22, 2020 12:52
--- NOTE | 2020-09-22 14:00 | NUR ---
NURSE NOTES: Pt repositioned. Seen by Beka wound care nurse. No distress noted at this time.
--- NOTE | 2020-09-22 15:00 | NUR ---
NURSE NOTES: sputum sample and covid swab collected and sent down to lab.
--- NOTE | 2020-09-22 15:26 | NUR ---
CLOTH CALENDER NOTE Pt is from [facility]. This is the 4th admission at [facility] [place] since 07/22/2020. Pt's last admission was 08/18/2020-08/30/2020. Emergency contacts are listed as pt's former neighbors from the assisted living facility, [facility]: Lizeth Gonzales [phone] and Jim [phone]. Per neighbors, pt does not have any family members. SW was unable to obtain psychosocial information from pt d/t his current mental health status. This SW is unable to locate family member/next of kin. AD/POA status is unknown at this time. NO copy of POLST is placed in the chart. Addendum: 09/23/20 at 1529 by HERVE UNDERWOOD Pt is not conserved at this time. Per friend, Lizeth Gonzales, she is working on the conservatorship paperwork through [employer].
--- NOTE | 2020-09-22 15:30 | History and Physical Report ---
DATE OF ADMISSION: 09/21/2020 CHIEF COMPLAINT: The patient is a 75-year-old male who presents with a chief complaint of shortness of breath. HISTORY OF PRESENT ILLNESS: The patient was admitted to [facility] in August of 2020. Please see history and physical and discharge summary dictated at that time. The patient had a pacemaker implantation during that hospital stay. The patient is a resident of [facility]. According to staff at [facility], the patient became acutely short of breath on September 21, 2020. The patient was transferred to [facility]. The patient was emergently intubated in the emergency room. The patient is admitted to the intensive care unit. The patient is admitted with respiratory failure and hypotension secondary to septic shock. REVIEW OF SYSTEMS: Unable to assess secondary to the patient's mental status. PAST MEDICAL HISTORY: Significant for: 1. Benign prostatic hypertrophy. 2. Alzheimer's dementia. 3. Schizophrenia. 4. Hypertension. 5. Depression. PAST SURGICAL HISTORY: Significant for pacemaker implantation. CURRENT MEDICATIONS: 1. Amlodipine 5 mg one tablet p.o. daily. 2. Colace 100 mg p.o. daily. 3. Haldol 5 mg IM every 6 hours. 4. Mirtazapine 15 mg p.o. nightly. 5. Pantoprazole 40 mg p.o. daily. 6. Risperdal 2 mg p.o. daily. 7. Tamsulosin 0.4 mg p.o. daily. 8. Ambien 5 mg p.o. nightly. ALLERGIES: No known drug allergies. SOCIAL HISTORY: The patient is single and is a resident of [facility]. The patient denies tobacco or alcohol use. PHYSICAL EXAMINATION: VITAL SIGNS: Temperature 99.6, respirations 18, pulse 96, blood pressure 79/55. GENERAL: The patient is a well-developed and well-nourished male, who is intubated and sedated. HEENT: Eyes, pupils are equal and responsive to light and accommodation. Extraocular movements are intact. NECK: Supple without lymphadenopathy. CHEST: Coarse mechanical breath sounds bilaterally without wheezes or rales. CARDIOVASCULAR: Regular rhythm and rate. S1 and S2 are normal without murmurs, rubs, or gallops. ABDOMEN: Soft, nontender, and nondistended. Positive bowel sounds. No evidence of hepatosplenomegaly. Currently, no rebound or guarding noted. EXTREMITIES: Negative for clubbing, cyanosis, or edema. RECTAL/GENITAL: Not performed. NEUROLOGICAL: Unable to assess. LABORATORY STUDIES: WBC 9.4, hemoglobin 14.5, hematocrit 43.1, platelets 105,000. Sodium 170, potassium 4.2, chloride 131, CO2 29, BUN 72, creatinine 5.0. Glucose 124. Troponin 0.140. BNP elevated 1196. Chest x-ray was reported as consolidation lateral left mid lung consistent with pneumonia. ASSESSMENT: This is a 75-year-old white male with: 1. Pneumonia. 2. Respiratory failure. 3. Septic shock. 4. Non-ST elevated myocardial infarction. 5. Hypertension. 6. Benign prostatic hypertrophy. 7. Alzheimer's dementia. 8. Depression. TREATMENT: 1. Pneumonia. The patient has been started empirically on intravenous meropenem and vancomycin. An Infectious Disease consultation has been obtained with Dr. Love./Dr. Aviles. Follow recommendations of Infectious Disease. A Pulmonary consultation has been obtained with Dr. Jaclyn Byrne. 2. Septic shock. The patient is currently on vasopressin. 3. Non-ST elevated myocardial infarction. A Cardiology consultation has been obtained with Dr. Carlos Eduardo Crespo. Follow recommendations of Cardiology. 4. Hypertension. The patient is currently hypotensive. Hold antihypertensive medication. 5. Benign prostatic hypertrophy. Continue Flomax as above. 6. Alzheimer's dementia. 7. History of schizophrenia/depression. 8. Pacemaker in situ. Shai Zimmer M.D. DR: RENÉ JOB#: [id number] CC:
--- NOTE | 2020-09-22 16:00 | NUR ---
NURSE NOTES: Pt repositioned. PO care provided. Afebrile with ice packs on. All drips weaned off except levophed at this time. BP maintained above 90 systolic. Will continue to monitor.
--- NOTE | 2020-09-22 16:01 | Consultation ---
DATE OF CONSULTATION: 09/22/2020 CARDIOLOGY CONSULTATION REFERRING PHYSICIAN: Andrés Rothman M.D. REASON FOR CONSULTATION: Ventricular tachycardia and septic shock. HISTORY OF PRESENT ILLNESS: The patient is an 83-year-old intermediate patient with history of dementia, who was brought to the emergency room by paramedics for increasing shortness of breath. He was placed on 6 L nasal cannula. The patient had a negative COVID test several weeks ago. The patient in the ER was severely hypoxic and tachypneic on the nonrebreather mask and was subsequently emergently intubated and brought to the intensive care unit. While he was in ICU, he had an episode of pulseless electrical activity and ventricular tachycardia and underwent CPR. The patient at the time of my evaluation is in atrial fibrillation, rapid ventricular response, with heart rate up to 180s and has already maxed out on 3 pressors including Levophed, vasopressin, and dopamine. The patient remains full code. REVIEW OF SYSTEMS: Cannot be obtained. PAST MEDICAL HISTORY: As mentioned above. FAMILY HISTORY: Noncontributory. SOCIAL HISTORY: long-term resident. Does not smoke or drink alcohol. PHYSICAL EXAMINATION: VITAL SIGNS: Blood pressure of 96/61 as well as 81/62, pulse is 175, respirations 18. HEAD AND NECK: Orally intubated. LUNGS: Coarse rhonchi. CARDIOVASCULAR: Irregular irregular. Tachycardic S1 and S2 with no gallop. ABDOMEN: Soft. EXTREMITIES: No pitting edema. LABORATORY AND DIAGNOSTIC DATA: His labs show white count of 5.8, hemoglobin 14.1, hematocrit of 43, and platelet count is 85. Sodium was 170. BUN of 72, creatinine of 5.9, glucose of 203. Troponin is 1.14. ASSESSMENT AND PLAN: 1. Episode of pulseless electrical activity after ventricular tachycardia. The patient is already on dopamine and Levophed and vasopressin. I will discontinue dopamine. That could have caused the irritability of the heart causing ventricular tachycardia. Completely rule out DE protocol. Get an echocardiogram for ejection fraction and wall motion abnormality. For the patient's atrial fibrillation and rapid ventricular response, the patient will be given digoxin 0.25 mg IV x2, as we cannot give beta-tay or calcium channel tay in view of the septic shock, on 3 pressors. 2. Septic shock. The patient's dopamine will be tapered off. Continue Levophed and maxed out on vasopressin and Enrrique-Synephrine. He will get antibiotic by Dr. Love's group. 3. Respiratory failure, on the ventilator, 100% FiO2 on a PEEP of 8. Echocardiogram is pending. Completely rule out DE protocol. 4. Severe azotemia with sodium of 170 and very high BUN and creatinine. The patient is on D5 and quarter-normal saline at 200 mL/hour per Dr. Mata. 5. Troponin elevation, could be due to renal failure as well as septic shock. Thank you very much for allowing me to participate in the care of this patient. Please do not hesitate to contact me for any questions regarding my evaluation. Carlos Eduardo Crespo M.D. DR: SOL JOB#: [id number] CC:
[2020-09-22] MEDS: Norepinephrine Bitartrate 16 MG in Sodium Chloride 484 ML IV SCH (16:36)
--- NOTE | 2020-09-22 17:10 | NUR ---
CASE MANAGEMENT:INITIAL REVIEW 75 YR OLD MALE BIBA FROM [facility] [place] CC;ALOC SI;HYPOXIA. DYSPNEA. HYPERNATREMIA. ARF. NSTEMI. RESPIRATORY FAILURE. 100.4 108 41 79/55 74% NRB ORALLY INTUBATED IN ER ~ FIO2 100% AC 22 TV 650 PEEP 8 FIO2 100% PLT 105 NA 170 BUN 72 CR 5.0 FERRITIN 1085 T-BILI 2.5 D-BILI 1.7 AST 105 LDH 255 TCK 1842 TROP 0.140 CRP 14.2 BNP 1196 ALB 2.7 PT 16.1 INR 1.5 D-DIMER 1.57 UA+ PROTEIN, KETONES, BLOOD, UROBILINOGEN, LEUKOCYTE ESTERASE, RBC, WBC, BACTERIA COVD RAPID ~ NEGATIVE CXR ~ Left chest wall dual-lead pacing device. Tip of the endotracheal tube is 40 mm above the malissa. Partially visualized airspace consolidation projecting over the lateral left mid lung, correlate for pneumonia. No clinically significant pneumothorax or pleural effusion. IS;IVF NS BOLUS PROPOFOL IV LEVOPHED GTT VANCOMYCIN IV ZOSYN IV ADMITTED TO ICU ICU STATUS
--- NOTE | 2020-09-22 18:00 | NUR ---
NURSE NOTES: Pt repositioned. No distress noted. Remains solely on levophed for vasopressor at this time.
--- NOTE | 2020-09-22 18:07 | Consultation ---
History of Present Illness General Date patient seen: Sep 22, 2020 Reason for Hospitalization: Altered Level of Consciousness Present Illness HPI 83-year-old fdc patient with history of dementia here with shortness of breath. Patient did have a negative Covid test several weeks ago. However over the past 24 hours the patient has had a rhonchorous productive cough and is appearing more short of breath tonight. When paramedics arrived the patient an option saturation 90% on room air. They placed him on a 6 L nasal cannula. This resolved the patient's hypoxia and he had a 96% oxygen saturation. However when patient was brought into the emergency department he was highly tachypneic and had an oxygen saturation of 70% on a nonrebreather mask. He was in acute distress and had severe altered mental status. Patient was emergently intubated. now in icu on support surgery called toe valuate and assist with care Allergies: Coded Allergies: No Known Allergies (Unverified , 07/22/20) COVID-19 Screening Contact w/high risk pt: No Experienced COVID-19 symptoms?: Yes Coronavirus symptoms experienc: Fever (T>100.4F or >38C), Shortness of Breath Medication History Scheduled Amlodipine Besylate* (Amlodipine Besylate*), 5 MG ORAL DAILY, (Reported) Cefazolin Sodium (Cefazolin Sodium), 1 GM IV EVERY 8 HOURS, (Reported) Chlorhexidine Gluconate (Peridex), 15 ML ORAL DAILY AND EVENING, (Reported) Docusate Sodium* (Docusate Sodium*), 100 MG ORAL ONCE DAILY, (Reported) Mirtazapine* (Mirtazapine*), 15 MG ORAL BEDTIME Multivitamins* (Multivitamins*), 1 TAB ORAL DAILY, (Reported) Pantoprazole* (Pantoprazole*), 40 MG ORAL ACBREAKFAST, (Reported) Pantoprazole* (Pantoprazole*), 40 MG ORAL DAILY, (Reported) Risperidone* (Risperdal*), 2 MG ORAL DAILY, (Reported) Tamsulosin HCl (Flomax), 0.4 MG ORAL DAILY, (Reported) Tamsulosin HCl (Flomax), 0.4 MG ORAL Q12HR Scheduled PRN Acetaminophen* (Acetaminophen 325MG Tablet*), 650 MG ORAL Q4H PRN for PAIN/FEVE R, (Reported) Haloperidol Lactate (Haloperidol Lactate), 5 MG IM Q6H PRN Zolpidem Tartrate* (Zolpidem Tartrate*), 5 MG ORAL BEDTIME PRN for INSOMINA, (Reported) Patient History Limited by: medical condition History Provided By: Medical Record, PMD Healthcare decision maker Resuscitation status Advanced Directive on File Past Medical/Surgical History Past Medical/Surgical History: (1) Septic shock (2) Multiorgan failure (3) Rapid atrial fibrillation (4) Compression fracture of L3 vertebra (5) Social isolation (6) Impaired mobility and ADLs (7) UTI (urinary tract infection) (8) Suicidal ideations (9) HTN (hypertension) (10) Failure to thrive in adult (11) Renal failure (ARF), acute on chronic (12) ANGI (acute kidney injury) (13) BPH (benign prostatic hyperplasia) (14) Schizoaffective disorder (15) Sick sinus syndrome (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 (17) Cardiopulmonary arrest (18) Pulseless ventricular tachycardia (19) Hypernatremia (20) ARF (acute renal failure) (21) NSTEMI (non-ST elevated myocardial infarction) (22) AMS (altered mental status) (23) Acute respiratory failure Review of Systems Review of Symptoms General ROS: no weight loss or fever Psychological ROS: no depression or mood changes, no memory loss Ophthalmic ROS: no visual changes or eye irritation ENT ROS: no nasal congestion, hearing loss, dizziness Allergy and Immunology ROS: no allergic symptoms or urticaria Hematological and Lymphatic ROS: no swollen glands, unusual bleeding or bruising Endocrine ROS: no polyuria, polydipsia, weight changes, temperature intolerance Respiratory ROS: no cough, shortness of breath, or wheezing Cardiovascular ROS: no chest pain or dyspnea on exertion Gastrointestinal ROS: denies abdominal pain, bright red blood in stool. Musculoskeletal ROS: no myalgias or arthralgias Neurological ROS: no TIA or stroke symptoms Dermatological ROS: no new or changing skin lesions, rashes or pruritis limited given medical condition Physical Exam Physical Exam General appearance: mild distress, appears stated age Head: Normocephalic, without obvious abnormality, atraumatic Eyes: conjunctivae/corneas clear. PERRL, EOM's intact. Fundi benign Throat: Lips, mucosa, and tongue normal. Teeth and gums normal Neck: supple, symmetrical, trachea midline, no adenopathy, thyroid: not enlarged, symmetric, no tenderness/mass/nodules, no carotid bruit and no JVD Lungs: dec b/l intubated Heart: regular rate and rhythm, S1, S2 normal, no murmur, click, rub or gallop Abdomen: soft, non-tender. Bowel sounds normal. No masses, no organomegaly Extremities: extremities normal, atraumatic, no cyanosis or edema Pulses: 2+ and symmetric Skin: Skin see below Neurologic: Grossly normal Last 24 Hour Vital Signs Date Time Temp Pulse Resp B/P (MAP) Pulse Ox O2 Delivery O2 Flow Rate FiO2 09/22/20 17:00 127 27 115/52 (73) 100 09/22/20 17:00 113/82 09/22/20 16:45 132 26 128/65 (86) 98 09/22/20 16:36 149/89 09/22/20 16:30 153 25 149/89 (109) 99 09/22/20 16:15 155 25 113/82 (92) 99 09/22/20 16:00 Mechanical Ventilator 09/22/20 16:00 98.1 153 22 93/70 (78) 99 09/22/20 16:00 124 09/22/20 15:59 149 26 100 09/22/20 15:45 118 26 72/44 (53) 100 09/22/20 15:30 115 24 93/79 (84) 99 09/22/20 15:15 125 24 131/63 (85) 99 09/22/20 15:00 144 24 148/106 (120) 94 09/22/20 14:45 144 19 199/168 (178) 92 09/22/20 14:30 140 23 182/155 (164) 65 09/22/20 14:15 131 28 165/141 (149) 58 09/22/20 14:00 147 23 114/83 (93) 60 09/22/20 13:57 128/110 09/22/20 13:45 145 23 121/107 (112) 73 09/22/20 13:30 149 24 121/106 (111) 70 09/22/20 13:15 150 24 74/60 (65) 85 09/22/20 13:00 151 23 96/61 (73) 68 09/22/20 12:45 152 24 90/51 (64) 75 09/22/20 12:30 159 24 108/97 (101) 80 09/22/20 12:15 162 24 122/77 (92) 70 09/22/20 12:03 175 09/22/20 12:00 164 09/22/20 12:00 170 96/61 09/22/20 12:00 Mechanical Ventilator 09/22/20 12:00 98.4 175 23 91/69 (76) 68 09/22/20 11:45 175 24 91/62 (72) 69 09/22/20 11:41 111/81 09/22/20 11:30 98/65 09/22/20 11:30 120 22 111/81 (91) 72 09/22/20 11:15 123 22 118/81 (93) 76 09/22/20 11:15 111/81 09/22/20 11:00 129 22 93/72 (79) 81 09/22/20 11:00 93/72 09/22/20 10:45 100 09/22/20 10:45 131 22 87/73 (78) 81 09/22/20 10:45 87/73 09/22/20 10:30 130 27 81/62 (68) 78 09/22/20 10:30 81/62 09/22/20 10:15 112 34 101/42 (61) 72 09/22/20 10:00 107 25 116/30 (58) 80 09/22/20 09:45 112 29 77/64 (68) 68 09/22/20 09:30 109 28 110/85 (93) 80 09/22/20 09:15 99.0 109 27 199/90 (126) 74 09/22/20 09:13 119/73 09/22/20 09:00 111 30 119/73 (88) 74 09/22/20 08:45 113 22 86/70 (75) 72 09/22/20 08:30 116 22 71/22 (38) 71 09/22/20 08:15 100.3 121 34 86/34 (51) 86 09/22/20 08:15 68 09/22/20 08:15 34 71/24 Mechanical Ventilator 100 09/22/20 08:15 Mechanical Ventilator 09/22/20 08:10 100 09/22/20 08:00 101.5 117 22 108/88 100 Mechanical Ventilator 15.0 100 12/23/20 07:30 124/68 09/22/20 07:30 124/68 09/22/20 07:18 22 124/68 Mechanical Ventilator 15.0 100 09/22/20 07:00 101.5 120 22 137/75 98 Mechanical Ventilator 100 09/22/20 06:56 118 23 125/79 94 Mechanical Ventilator 100 09/22/20 06:52 73/42 09/22/20 06:41 73/42 09/22/20 06:00 102.1 118 23 84/55 94 Mechanical Ventilator 100 09/22/20 05:15 99.0 117 24 107/82 90 Mechanical Ventilator 100 09/22/20 04:18 22 96/61 Mechanical Ventilator 100 09/22/20 04:10 99.8 118 26 103/62 96 Mechanical Ventilator 100 09/22/20 04:06 90/55 09/22/20 03:15 99.8 118 26 61/52 91 Mechanical Ventilator 100 09/22/20 03:08 116 23 100 09/22/20 02:50 93/66 09/22/20 02:45 75/49 09/22/20 02:29 100 09/22/20 01:45 88/55 09/22/20 01:36 98/54 09/22/20 01:36 20 95/54 Mechanical Ventilator 100 09/22/20 01:31 90/55 09/22/20 01:26 89/46 09/22/20 01:21 52/18 09/22/20 01:21 23 52/18 Mechanical Ventilator 100 09/22/20 01:06 24 139/85 Mechanical Ventilator 100 09/22/20 00:51 150/65 09/22/20 00:51 22 130/87 Mechanical Ventilator 100 09/22/20 00:36 137/93 09/22/20 00:36 20 137/93 Mechanical Ventilator 100 09/22/20 00:30 99.6 91 23 137/93 98 Mechanical Ventilator 100 09/21/20 23:33 92 23 100 09/21/20 23:14 120/71 09/21/20 22:50 99.6 96 18 79/55 96 Mechanical Ventilator 100 09/21/20 22:50 79/55 09/21/20 20:48 108 18 100 09/21/20 20:20 88 41 Non-Rebreather 15.0 09/21/20 20:20 100.4 95 41 104/63 74 Non-Rebreather 15.0 09/21/20 20:11 100.4 88 22 104/63 (77) 96 Nasal Cannula 6.0 Intake and Output 09/21/20 09/22/20 19:00 07:00 Intake Total 20.684 ml Output Total 20 ml Balance 0.684 ml Intake IV Total 20.684 ml Output Urine Total 20 ml Laboratory Tests Test 09/21/20 21:00 09/21/20 21:25 09/21/20 21:30 09/22/20 02:00 White Blood Count 9.4 K/UL (4.8-10.8) Red Blood Count 4.58 M/UL (4.70-6.10) L Hemoglobin 14.5 G/DL (14.2-18.0) Hematocrit 43.1 % (42.0-52.0) Mean Corpuscular Volume 94 FL (80-99) Mean Corpuscular Hemoglobin 31.6 PG (27.0-31.0) H Mean Corpuscular Hemoglobin Concent 33.6 G/DL (32.0-36.0) Red Cell Distribution Width 15.9 % (11.6-14.8) H Platelet Count 105 K/UL (150-450) L Mean Platelet Volume 10.4 FL (6.5-10.1) H Neutrophils (%) (Auto) 75.2 % (45.0-75.0) H Lymphocytes (%) (Auto) 5.9 % (20.0-45.0) L Monocytes (%) (Auto) 17.5 % (1.0-10.0) H Eosinophils (%) (Auto) 0.4 % (0.0-3.0) Basophils (%) (Auto) 1.0 % (0.0-2.0) Prothrombin Time 16.1 SEC (9.30-11.50) H Prothromb Time International Ratio 1.5 (0.9-1.1) H Activated Partial Thromboplast Time 31 SEC (23-33) D-Dimer 1.57 mg/L FEU (0.00-0.49) H Sodium Level 170 MMOL/L (136-145) *H Potassium Level 4.2 MMOL/L (3.5-5.1) Chloride Level 131 MMOL/L (98-107) H Carbon Dioxide Level 29 MMOL/L (21-32) Anion Gap 10 mmol/L (5-15) Blood Urea Nitrogen 72 mg/dL (7-18) H Creatinine 5.0 MG/DL (0.55-1.30) H Estimat Glomerular Filtration Rate 11.4 mL/min (>60) Glucose Level 124 MG/DL (74-106) H Lactic Acid Level 2.00 mmol/L (0.4-2.0) Calcium Level 8.6 MG/DL (8.5-10.1) Ferritin 1085 NG/ML (8-388) H Total Bilirubin 2.5 MG/DL (0.2-1.0) H Direct Bilirubin 1.7 MG/DL (0.0-0.3) H Aspartate Amino Transf (AST/SGOT) 108 U/L (15-37) H Alanine Aminotransferase (ALT/SGPT) 46 U/L (12-78) Alkaline Phosphatase 107 U/L (46-116) Lactate Dehydrogenase 255 U/L (81-234) H Total Creatine Kinase 1842 U/L (26-308) H Creatine Kinase MB 4.4 NG/ML (0.0-3.6) H Creatine Kinase MB Relative Index 0.2 Troponin I 0.140 ng/mL (0.000-0.056) C-Reactive Protein, Quantitative 14.2 mg/dL (0.00-0.90) H Pro-B-Type Natriuretic Peptide 1196 pg/mL (0-125) H Total Protein 8.0 G/DL (6.4-8.2) Albumin 2.7 G/DL (3.4-5.0) L Globulin 5.3 g/dL Albumin/Globulin Ratio 0.5 (1.0-2.7) L Triglycerides Level 185 MG/DL (30-150) H Lipase 321 U/L (73-393) Arterial Blood pH 7.357 (7.350-7.450) 7.319 (7.350-7.450) Arterial Blood Partial Pressure CO2 47.2 mmHg (35.0-45.0) H 38.4 mmHg (35.0-45.0) Arterial Blood Partial Pressure O2 103.7 mmHg (75.0-100.0) H 57.0 mmHg (75.0-100.0) L Arterial Blood HCO3 25.9 mmol/L (22.0-26.0) 19.3 mmol/L (22.0-26.0) L Arterial Blood Oxygen Saturation 97.0 % (95-100) 87.3 % (95-100) *L Arterial Blood Base Excess -0.1 (-2-2) -6.2 (-2-2) L Kush Test Positive Positive Urine Color Brown Urine Appearance Cloudy Urine pH 5 (4.5-8.0) Urine Specific [place] 1.025 (1.005-1.035) Urine Protein 3+ (NEGATIVE) H Urine Glucose (UA) Negative (NEGATIVE) Urine Ketones 1+ (NEGATIVE) H Urine Blood 5+ (NEGATIVE) H Urine Nitrite Positive (NEGATIVE) H Urine Bilirubin 2+ (NEGATIVE) H Urine Ictotest Negative (NEGATIVE) Urine Urobilinogen 8 MG/DL (0.0-1.0) H Urine Leukocyte Esterase 3+ (NEGATIVE) H Urine RBC 20-30 /HPF (0 - 0) H Urine WBC Tntc /HPF (0 - 0) H Urine Squamous Epithelial Cells Few /LPF (NONE/OCC) Urine Bacteria Many /HPF (NONE) H Test 09/22/20 04:30 09/22/20 08:54 09/22/20 09:35 Arterial Blood pH 7.312 (7.350-7.450) 7.240 (7.350-7.450) Arterial Blood Partial Pressure CO2 37.2 mmHg (35.0-45.0) 38.8 mmHg (35.0-45.0) Arterial Blood Partial Pressure O2 59.2 mmHg (75.0-100.0) L 132.2 mmHg (75.0-100.0) H Arterial Blood HCO3 18.4 mmol/L (22.0-26.0) L 16.3 mmol/L (22.0-26.0) *L Arterial Blood Oxygen Saturation 87.3 % (95-100) *L 98.0 % (95-100) Arterial Blood Base Excess -7.1 (-2-2) L -10.4 (-2-2) *L Kush Test Positive Positive White Blood Count 5.8 K/UL (4.8-10.8) Red Blood Count 4.48 M/UL (4.70-6.10) L Hemoglobin 14.1 G/DL (14.2-18.0) L Hematocrit 43.3 % (42.0-52.0) Mean Corpuscular Volume 97 FL (80-99) Mean Corpuscular Hemoglobin 31.6 PG (27.0-31.0) H Mean Corpuscular Hemoglobin Concent 32.6 G/DL (32.0-36.0) Red Cell Distribution Width 16.2 % (11.6-14.8) H Platelet Count 85 K/UL (150-450) L Mean Platelet Volume 11.1 FL (6.5-10.1) H Neutrophils (%) (Auto) % (45.0-75.0) Lymphocytes (%) (Auto) % (20.0-45.0) Monocytes (%) (Auto) % (1.0-10.0) Eosinophils (%) (Auto) % (0.0-3.0) Basophils (%) (Auto) % (0.0-2.0) Differential Total Cells Counted 100 Neutrophils % (Manual) 91 % (45-75) H Lymphocytes % (Manual) 6 % (20-45) L Monocytes % (Manual) 3 % (1-10) Eosinophils % (Manual) 0 % (0-3) Basophils % (Manual) 0 % (0-2) Band Neutrophils 0 % (0-8) Platelet Estimate Decreased L Platelet Morphology Normal Anisocytosis 1+ Sodium Level 164 MMOL/L (136-145) *H Potassium Level 3.6 MMOL/L (3.5-5.1) Chloride Level 128 MMOL/L (98-107) H Carbon Dioxide Level 20 MMOL/L (21-32) L Anion Gap 16 mmol/L (5-15) H Blood Urea Nitrogen 71 mg/dL (7-18) H Creatinine 5.9 MG/DL (0.55-1.30) H Estimat Glomerular Filtration Rate 9.4 mL/min (>60) Glucose Level 203 MG/DL (74-106) H Uric Acid 13.3 MG/DL (2.6-7.2) H Calcium Level 7.2 MG/DL (8.5-10.1) L Phosphorus Level 2.6 MG/DL (2.5-4.9) Magnesium Level 2.0 MG/DL (1.8-2.4) Total Bilirubin 2.6 MG/DL (0.2-1.0) H Direct Bilirubin 1.8 MG/DL (0.0-0.3) H Aspartate Amino Transf (AST/SGOT) 124 U/L (15-37) H Alanine Aminotransferase (ALT/SGPT) 41 U/L (12-78) Alkaline Phosphatase 101 U/L (46-116) Total Protein 6.7 G/DL (6.4-8.2) Albumin 2.0 G/DL (3.4-5.0) L Globulin 4.7 g/dL Albumin/Globulin Ratio 0.4 (1.0-2.7) L Microbiology Date/Time Source Procedure Growth Status 09/21/20 22:02 Nasopharynx SARS-CoV-2 RdRp Gene Assay - Final Complete Height (Feet): 5 Height (Inches): 9.00 Weight (Pounds): 190 Medications Current Medications Medications (Trade) Dose Ordered Sig/Fabrizio Route PRN Reason Start Time Stop Time Status Last Admin Dose Admin Acetaminophen (Tylenol) 650 mg Q4H PRN ORAL fever 09/21/20 23:45 10/21/20 23:44 Albuterol/ Ipratropium (Albuterol/ Ipratropium) 3 ml Q4H PRN HHN Shortness of Breath 09/21/20 23:45 09/26/20 23:44 Amikacin Protocol (Amikacin pharmacy to dose) 1 ea DAILY PRN MISC . 09/22/20 05:00 10/22/20 04:59 Chlorhexidine Gluconate (Jennifer-Hex 2%) 1 applic DAILY@2000 TOPIC 09/22/20 20:00 12/21/20 19:59 Dextrose/Sodium Chloride 1,000 ml @ 200 mls/hr Q5H IV 09/22/20 11:00 10/22/20 10:59 09/22/20 16:35 Dopamine HCl/ Dextrose 250 ml @ 0 mls/hr Q24H IV 09/22/20 09:00 09/25/20 08:59 09/22/20 10:30 Haloperidol Lactate (Haldol) 5 mg Q6H PRN IM Agitation 09/21/20 23:45 11/05/20 23:44 Heparin Sodium (Porcine) (Heparin 5000 units/ml) 5,000 units EVERY 12 HOURS SUBQ 09/22/20 09:00 11/06/20 08:59 09/22/20 09:14 Iohexol (Omnipaque 350 100ml) 100 ml NOW PRN INJ Radiology Procedure 09/21/20 21:45 09/23/20 21:44 Lorazepam (Ativan 2mg/ml 1ml) 2 mg Q2H PRN IV For Anxiety 09/21/20 23:45 09/28/20 23:44 Meropenem 500 mg/ Sodium Chloride 55 ml @ 110 mls/hr Q12HR IVPB 09/22/20 10:00 09/27/20 09:59 09/22/20 10:12 Morphine Sulfate (Morphine Sulfate) 4 mg Q4H PRN IVP Severe Pain (Pain Scale 7-10) 09/21/20 23:45 09/28/20 23:44 Norepinephrine Bitartrate 16 mg/ Sodium Chloride 500 ml @ 0 mls/hr Q24H IV 09/22/20 16:00 09/25/20 15:59 09/22/20 16:36 Ondansetron HCl (Zofran) 4 mg Q6H PRN IVP Nausea & Vomiting 09/21/20 23:45 10/21/20 23:44 Pantoprazole (Protonix) 40 mg Q12HR IVP 09/22/20 21:00 10/22/20 08:59 Phenylephrine HCl 50 mg/Dextrose 250 ml @ 0 mls/hr Q24H IV 09/22/20 08:45 09/25/20 08:42 09/22/20 12:00 Polyethylene Glycol (Miralax) 17 gm DAILYPRN PRN ORAL Constipation 09/21/20 23:45 10/21/20 23:44 Vancomycin HCl (Vanco pharmacy to dose) 1 ea DAILY PRN MISC PER RX PROTOCOL 09/22/20 07:45 10/22/20 07:44 Vasopressin 100 units/Sodium Chloride 100 ml @ 0 mls/hr Q24H IV 09/22/20 09:00 09/25/20 08:59 09/22/20 10:07 Assessment/Plan Problem List: (1) Septic shock Assessment & Plan: anemia lactic acidosis elevated t bili / d bili imaging reviewed ill appearing weaning pressors as tolerated local care provided will follow with recs thank you DAILY ESTIMATED NEEDS: Needs based on Critical care, wound, ARF/ 77kg abw 22-28 kcals/kg 8126-9830 total kcals 0.8-1.25 (increase w/ renal improvement) g protein/kg 61-96 g total protein 20-25 mL/kg 1862-0642 total fluid mLs NUTRITION DIAGNOSIS: Swallowing difficulty r/t respiratory failure as evidenced by orally intubated upon adm, now s/p code blue (09/22), on pressor support. CURRENT TF:npo PO DIET RECOMMENDATIONS: AGRONOMY INSTRUCTOR eval post extubation ENTERAL NUTRITION RECOMMENDATIONS: Glucerna 1.2 @ 60ml/hr x 24 hrs to provide 1440ml, 1728kcal, 86g prot, 1159ml free water * WITH HEMODYNAMIC STABILITY -> Initiate Glucerna 1.2 @ 20ml/hrs x 6 hrs, advance 10ml q 4-6 hrs as tolerated to goal -> Flush per MD. HOB over 30 degrees -> Monitor renal fxn and lytes, need for renal TF of Nepro Without hemodynamic stability: rec trophic feeding of Glucerna 1.2 @ 10- 15ml/hr x 24 hrs ADDITIONAL RECOMMENDATIONS: * Calibrated bedscale wt * Monitor hemodynamic stability, ability to feed * Monitor renal fxn and lytes, need for renal TF formula (creat wnl last adm -> 5.2 at this time, K wnl, phos and mag low) * NISS w/ TF * Wound healing: f/up w/ WC eval, add Omar BID w/ TF ICD Codes: A41.9 - Sepsis, unspecified organism; R65.21 - Severe sepsis with septic shock SNOMED: 06768111 (2) Multiorgan failure SNOMED: 46912402 (3) Rapid atrial fibrillation ICD Codes: I48.91 - Unspecified atrial fibrillation SNOMED: 104071989 (4) Compression fracture of L3 vertebra ICD Codes: S32.030A - Wedge compression fracture of third lumbar vertebra, initial encounter for closed fracture SNOMED: 234519464 (5) Social isolation ICD Codes: Z60.4 - Social exclusion and rejection SNOMED: 958067619 (6) Impaired mobility and ADLs ICD Codes: Z74.09 - Other reduced mobility; Z78.9 - Other specified health status SNOMED: 53274643, 105207837, 630158560 (7) UTI (urinary tract infection) ICD Codes: N39.0 - Urinary tract infection, site not specified SNOMED: 28074824 (8) Suicidal ideations ICD Codes: R45.851 - Suicidal ideations SNOMED: 3307832 (9) HTN (hypertension) ICD Codes: I10 - Essential (primary) hypertension SNOMED: 36309157 (10) Failure to thrive in adult ICD Codes: R62.7 - Adult failure to thrive SNOMED: 128132190 (11) Renal failure (ARF), acute on chronic ICD Codes: N17.9 - Acute kidney failure, unspecified; N18.9 - Chronic kidney disease, unspecified SNOMED: 894798907 (12) ANGI (acute kidney injury) ICD Codes: N17.9 - Acute kidney failure, unspecified SNOMED: 98526848, 6241901 (13) BPH (benign prostatic hyperplasia) ICD Codes: N40.0 - Benign 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 SNOMED: 002382031 (14) Schizoaffective disorder ICD Codes: F25.9 - Schizoaffective disorder, unspecified SNOMED: 65414030 (15) Sick sinus syndrome ICD Codes: I49.5 - Sick sinus syndrome SNOMED: 84927743 (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 - Cerebral infarction due to embolism of unspecified cerebral artery SNOMED: 545504282, 858635599 (17) Cardiopulmonary arrest ICD Codes: I46.9 - Cardiac arrest, cause unspecified SNOMED: 011229419 (18) Pulseless ventricular tachycardia ICD Codes: I47.2 - Ventricular tachycardia SNOMED: 356049976 (19) Hypernatremia ICD Codes: E87.0 - Hyperosmolality and hypernatremia SNOMED: 909996579 (20) ARF (acute renal failure) ICD Codes: N17.9 - Acute kidney failure, unspecified SNOMED: 39457535 (21) NSTEMI (non-ST elevated myocardial infarction) ICD Codes: I21.4 - Non-ST elevation (NSTEMI) myocardial infarction SNOMED: 20322908 (22) AMS (altered mental status) ICD Codes: R41.82 - Altered mental status, unspecified SNOMED: 682250495 (23) Acute respiratory failure ICD Codes: J96.00 - Acute respiratory failure, unspecified whether with hypoxia or hypercapnia SNOMED: 14172126 Eber Slater Sep 22, 2020 18:07
--- NOTE | 2020-09-22 19:21 | NUR ---
NURSE HAND-OFF REPORT: Latest Vital Signs: Temperature 98.1 , Pulse 124 , B/P 122 /64 , Respiratory Rate 24 , O2 SAT 100 , Mechanical Ventilator, FiO2 100% . EKG Rhythm: Atrial Fibrillation Rhythm change?: N MD Notified?: Pt seen by Dr Crespo. Response: orders placed Latest Robertson Fall Score: 75 Fall Risk: High Risk Safety Measures: Call light Within Reach, Bed Alarm Zone 1, Side Rails Side Rails x2, Bed position Low and Locked. Fall Precautions: Yellow Socks Yellow Gown Door Sign Patient Fall Education Report given to KRYSTYNA Florez.
--- NOTE | 2020-09-22 19:40 | NUR ---
NURSE NOTES: SBAR from Samantha RN. Patient currently on Levophed gtt maxed rate, patient currently critical at this time, patients has Blood pressures that are fluctuating. HR is 152 Afib rhythm, weak pulses noted. Patient is orally intubated 7.5/23cm at lower lip, AC 16, 650tv, 100% FiO2 and peep of 5. OGT noted in place, NPO status, [place] noted, D51/4NS at 200ml/hr via R Femoral TLC. Skin alterations noted. MD's , made aware of patients condition, will continue to monitor.
[2020-09-22] MEDS: Dyna-Hex 2% Top Sol 2oz TOPIC SCH (20:00)
--- NOTE | 2020-09-22 20:30 | NUR ---
NURSE NOTES: Patients blood pressure began to dip into the 40s systolically, patient is already maxed out on Levophed gtt. Vasopressin and Phenylephrine restarted.
[2020-09-22] MEDS: Pantoprazole Inj IVP SCH (21:00)
--- NOTE | 2020-09-22 22:00 | NUR ---
NURSE NOTES: Patient given oral care and repositioned. Patient remains on pressors. HR 120-140s afib rhythm. Patient remains 100% Fio2 at this time. Neuro status remains unchanged, no response to stimulation, hypoactive gag reflexes.
[2020-09-23] VITALS (62 sets, daily range): BP systolic 89–145; BP diastolic 54–102
--- NOTE | 2020-09-23 | NUR ---
NURSE NOTES: Patient repositioned and suctioned, neuro status remains unchanged. Remains on pressors, Levo remains maxed, titrating down other pressors slowly. Afib on the monitor, pulses present. SpO2 100%
[2020-09-23] MEDS: Norepinephrine Bitartrate 16 MG in Sodium Chloride 484 ML IV SCH ×2 (01:50→16:37)
--- NOTE | 2020-09-23 02:00 | NUR ---
NURSE NOTES: Patient repositioned, suctioned and oral care performed. tapering down pressors. Tapering down Fio2. SpO2 has been staying at 100%. Remains Afib rhythm. Pulses present. No other abnormal rhythm observed. Patient starting to slightly make more urine output. dark shante
[2020-09-23] MEDS: D5 1/4NS 1000ml 1,000 ML IV SCH ×5 (02:05→21:05)
--- NOTE | 2020-09-23 04:00 | NUR ---
NURSE NOTES: Tapering down pressors, tapering down FiO2, BP remains within good ranges. Patient lavaged, suctioned, oral care performed. Sponge bath given, blood drawn and sent to lab. Sinus tach and sometimes Afib rhythm. Carotid pulses present. Patient has Small BM. Patient making more urine output than start of shift.
--- NOTE | 2020-09-23 06:00 | NUR ---
NURSE NOTES: Repositioned patient, suctioning and tapering pressors down successfully. HR [address] ST with strong carotid pulses. NAD at this time. Water flushes given.
[2020-09-23 06:10] LABS: ALBUMIN 2.1 G/DL (3.4-5.0); ALBUMIN/GLOBULIN RATIO 0.6 (1.0-2.7); BILIRUBIN,TOTAL 2.6 MG/DL (0.2-1.0); CREATININE 5.2 MG/DL (0.55-1.30); POTASSIUM 3.8 MMOL/L (3.5-5.1)
[2020-09-23 06:19] LABS: BILIRUBIN,DIRECT 2.1 MG/DL (0.0-0.3)
[2020-09-23 06:20] LABS: CREATINE KINASE 1573 U/L (26-308); GAMMA GLUTAMYL TRANSPEPTIDASE 21 U/L (5-85)
[2020-09-23 06:28] LABS: CHOLESTEROL 53 MG/DL (< 200); HDL CHOLESTEROL 9 MG/DL (40-60); PHOSPHORUS 1.7 MG/DL (2.5-4.9); TRIGLYCERIDES 121 MG/DL (30-150)
[2020-09-23 06:49] LABS: CALCIUM 6.2 MG/DL (8.5-10.1)
--- NOTE | 2020-09-23 07:15 | NUR ---
NURSE NOTES: Report received from Gautam Smith RN. Patient is observed resting in bed. FLACC score of 0 noted upon assessment. Patient is currently orally intubated ET tube size 7.5 noted and patient appears to be tolerating current vent settings well with an O2 saturation of of 98% at this time. Vent settings as follows: AC 16 TV 650 FiO2 60% PEEP 5. Bilateral lower lobe breath sounds noted to be diminished upon auscultation with rhonchi noted in bilateral upper lobes. Patient noted to be Sinus Tachycardia on compliance monitor with a Heart rate of 110, Blood Pressure remains stable at this time. Right AC g 22 IV Catheter and R Femoral TLC noted which remain asymptomatic, intact and patent. Central line dressing remains clean, dry and intact. D5 1/4 NS is currently infusing at 200mL/hr as ordered, Levophed and vasopressin running. Current drips noted to be therapeutic at this time. Active bowel sounds noted in all four quadrants; abdomen remains flat, soft and nontender. OG tube noted which remains secured and patent. Kept NPO per order. Whiting catheter noted which continues to drain urine by gravity. Diagnostics reviewed at bedside. Skin remains intact. Fall, Aspiration and Skin precautions observed. Patient repositioned for comfort and safety. Patient remains resting in bed; Bed remains in the lowest position with the safety wheels engaged, call light within reach, side rails up x3 and bed alarm activated. Airborne isolation observed. Will continue plan of care.
[2020-09-23 07:54] LABS: HEMATOCRIT 30.5 % (42.0-52.0); HEMOGLOBIN 10.5 G/DL (14.2-18.0); MEAN CORPUSCULAR VOLUME 92 FL (80-99); PLATELET COUNT 58 K/UL (150-450); RED BLOOD COUNT 3.32 M/UL (4.70-6.10); RED CELL DISTRIBUTION WIDTH 14.7 % (11.6-14.8); WHITE BLOOD COUNT 10.4 K/UL (4.8-10.8)
--- NOTE | 2020-09-23 08:13 | NUR ---
RD ASSESSMENT & RECOMMENDATIONS SEE CARE ACTIVITY FOR COMPLETE ASSESSMENT DAILY ESTIMATED NEEDS: Needs based on Critical care, wound, ARF/ 77kg abw 22-28 kcals/kg 2926-3446 total kcals 0.8-1.25 (increase w/ renal improvement) g protein/kg 61-96 g total protein 20-25 mL/kg 5237-7745 total fluid mLs NUTRITION DIAGNOSIS: Swallowing difficulty r/t respiratory failure as evidenced by orally intubated upon adm, now s/p code blue (09/22), on pressor support. CURRENT TF:npo PO DIET RECOMMENDATIONS: [employer] eval post extubation ENTERAL NUTRITION RECOMMENDATIONS: Glucerna 1.2 @ 60ml/hr x 24 hrs to provide 1440ml, 1728kcal, 86g prot, 1159ml free water * WITH HEMODYNAMIC STABILITY -> Initiate Glucerna 1.2 @ 20ml/hrs x 6 hrs, advance 10ml q 4-6 hrs as tolerated to goal -> Flush per MD. HOB over 30 degrees -> Monitor renal fxn and lytes, need for renal TF of Nepro Without hemodynamic stability: rec trophic feeding of Glucerna 1.2 @ 10-15ml/hr x 24 hrs ADDITIONAL RECOMMENDATIONS: * Calibrated bedscale wt * Monitor hemodynamic stability, ability to feed * Monitor renal fxn and lytes, need for renal TF formula (creat wnl last adm -> 5.2 at this time, K wnl, phos and mag low) * NISS w/ TF * Wound healing: f/up w/ WC eval, add Omar BID w/ TF .
--- NOTE | 2020-09-23 08:47 | Infectious Diseases Prog Note ---
Assessment/Plan 75yo M with: Septic shock GPC bacteremia CODE BLUE 09/21, s/p ROSC Pneumonia, c/f aspiration Hypoxic resp failure s/p intubation 09/21 R/o UTI Hypotension on pressors ANGI, Cr in 5s Elevated AST to 100s Febrile Normal WBC Lymphopenia 09/21 BCx +GPCs, speci/sensi p UA+ UCx p Resp cx p COVID rapid neg, PCR p CT chest: 1. Almost complete opacification of the left mainstem bronchus, segmental and subsegmental bronchi with presumed debris. Tree-in-bud nodularity along with patchy airspace consolidations are identified in the bilateral lower lobes, left greater than right. Constellation of findings are suspicious for aspiration pneumonia. 2. Left lower lobe and lingular subsegmental atelectasis. 3. 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 HyperNa to 170 on admission ANGI on CKD, Cr in 5s, worsening SNF resident Dementia Plan: Cont meropenem #2 Cont vanco IV #3 Stop amikacin Repeat BCx today F/u COVID PCR F/u BCx, UCx, Resp cx 09/22 SP amikacin x1 09/21 SP Zosyn in ED Monitor CBC/CMP Monitor temp curve, hemodynamics Monitor resp status D/w RN Thank you for this consult. [facility] will continue to follow. Subjective Allergies: Coded Allergies: No Known Allergies (Unverified , 07/22/20) AF BCx +GPCs WBC 10.4 NAD on vent Objective Last 24 Hour Vital Signs Date Time Temp Pulse Resp B/P (MAP) Pulse Ox O2 Delivery O2 Flow Rate FiO2 09/23/20 08:30 125 20 106/66 (79) 100 09/23/20 08:15 125 19 113/63 (80) 100 09/23/20 08:00 99.0 123 21 110/68 (82) 100 09/23/20 08:00 110/68 09/23/20 07:30 123 24 106/68 (81) 100 09/23/20 07:15 123 22 107/68 (81) 100 09/23/20 07:00 122 22 108/66 (80) 100 09/23/20 07:00 108/66 09/23/20 06:03 124 26 09/23/20 06:00 91/59 09/23/20 06:00 122 27 97/65 (76) 100 09/23/20 05:30 123 26 96/59 (71) 100 09/23/20 05:15 123 26 92/66 (75) 100 09/23/20 05:00 149 22 89/67 (74) 100 09/23/20 05:00 103/59 09/23/20 04:59 145 22 143/86 (105) 100 09/23/20 04:45 124 22 102/66 (78) 100 09/23/20 04:30 123 22 106/71 (83) 100 09/23/20 04:15 125 22 93/64 (74) 100 09/23/20 04:00 99.8 124 22 94/61 (72) 100 09/23/20 04:00 132 09/23/20 04:00 Mechanical Ventilator 09/23/20 04:00 122/70 09/23/20 04:00 60 09/23/20 04:00 60 09/23/20 03:53 126 22 106/71 (83) 100 09/23/20 03:45 127 22 92/65 (74) 100 09/23/20 03:30 127 22 120/80 (93) 100 09/23/20 03:00 130 22 129/78 (95) 100 09/23/20 03:00 132/66 09/23/20 03:00 124 22 100 09/23/20 02:45 131 22 130/80 (97) 100 09/23/20 02:30 135 22 127/77 (94) 100 09/23/20 02:15 133 21 118/73 (88) 100 09/23/20 02:05 123/59 09/23/20 02:00 131 22 111/76 (88) 100 09/23/20 02:00 125/59 09/23/20 01:50 135/74 09/23/20 01:30 129 23 143/95 (111) 100 09/23/20 01:00 138 22 135/74 (94) 100 09/23/20 01:00 135/74 09/23/20 00:30 138 22 109/68 (82) 100 09/23/20 00:00 80 09/23/20 00:00 132 09/23/20 00:00 Mechanical Ventilator 09/23/20 00:00 125/73 09/23/20 00:00 98.5 135 22 141/102 (115) 100 09/22/20 23:45 132 22 118/82 (94) 100 09/22/20 23:30 135 22 126/87 (100) 100 09/22/20 23:13 138 22 100 09/22/20 23:00 134 22 116/67 (83) 96 09/22/20 23:00 121/90 09/22/20 22:45 145 22 121/70 (87) 100 09/22/20 22:30 137 22 121/58 (79) 100 09/22/20 22:15 136 21 131/62 (85) 98 09/22/20 22:00 132 22 141/86 (104) 99 09/22/20 22:00 131/62 09/22/20 21:45 130 21 139/79 (99) 100 09/22/20 21:30 130 21 123/62 (82) 100 09/22/20 21:15 135 26 125/82 (96) 99 09/22/20 21:00 171 26 133/83 (100) 99 09/22/20 21:00 125/82 09/22/20 20:45 137 30 119/65 (83) 99 09/22/20 20:30 132 36 154/116 (129) 97 09/22/20 20:15 135 33 90/77 (81) 96 09/22/20 20:08 152 32 88/59 (69) 100 09/22/20 20:05 147 30 47/28 (34) 100 09/22/20 20:00 Mechanical Ventilator 09/22/20 20:00 47/28 09/22/20 20:00 135 09/22/20 20:00 90 09/22/20 20:00 99.0 150 32 75/58 (64) 100 09/22/20 19:49 161 21 76/52 (60) 99 09/22/20 19:45 148 22 101/68 (79) 100 09/22/20 19:41 151 25 71/32 (45) 100 09/22/20 19:40 148 22 85/49 (61) 100 09/22/20 19:38 141 24 71/47 (55) 100 09/22/20 19:36 146 18 88/55 (66) 100 09/22/20 19:30 87/49 09/22/20 19:30 147 24 82/52 (62) 100 09/22/20 19:15 124 24 122/64 (83) 100 09/22/20 19:15 122/64 09/22/20 19:00 141 25 114/65 (81) 100 09/22/20 19:00 114/65 09/22/20 18:45 117 27 127/69 (88) 100 09/22/20 18:39 110 26 100 09/22/20 18:30 124 27 142/74 (96) 99 09/22/20 18:23 100 09/22/20 18:15 134 26 127/74 (91) 100 09/22/20 18:00 144 23 173/93 (119) 100 09/22/20 18:00 173/93 09/22/20 17:45 141 27 174/105 (128) 100 09/22/20 17:30 143 24 164/84 (110) 100 09/22/20 17:15 134 26 132/77 (95) 100 09/22/20 17:00 127 27 115/52 (73) 100 09/22/20 17:00 113/82 09/22/20 16:45 132 26 128/65 (86) 98 09/22/20 16:36 149/89 09/22/20 16:30 153 25 149/89 (109) 99 09/22/20 16:15 155 25 113/82 (92) 99 09/22/20 16:00 Mechanical Ventilator 09/22/20 16:00 98.1 153 22 93/70 (78) 99 09/22/20 16:00 124 09/22/20 15:59 149 26 100 09/22/20 15:45 118 26 72/44 (53) 100 09/22/20 15:30 115 24 93/79 (84) 99 09/22/20 15:15 125 24 131/63 (85) 99 09/22/20 15:00 144 24 148/106 (120) 94 09/22/20 14:56 149 25 97 Mechanical Ventilator 100 09/22/20 14:45 144 19 199/168 (178) 92 09/22/20 14:30 140 23 182/155 (164) 65 09/22/20 14:15 131 28 165/141 (149) 58 09/22/20 14:00 147 23 114/83 (93) 60 09/22/20 13:57 128/110 09/22/20 13:45 145 23 121/107 (112) 73 09/22/20 13:30 149 24 121/106 (111) 70 09/22/20 13:15 150 24 74/60 (65) 85 09/22/20 13:00 151 23 96/61 (73) 68 09/22/20 12:45 152 24 90/51 (64) 75 09/22/20 12:30 159 24 108/97 (101) 80 09/22/20 12:15 162 24 122/77 (92) 70 09/22/20 12:03 175 09/22/20 12:00 100 09/22/20 12:00 164 09/22/20 12:00 170 96/61 09/22/20 12:00 Mechanical Ventilator 09/22/20 12:00 98.4 175 23 91/69 (76) 68 09/22/20 11:45 175 24 91/62 (72) 69 09/22/20 11:41 111/81 09/22/20 11:30 98/65 09/22/20 11:30 120 22 111/81 (91) 72 09/22/20 11:15 123 22 118/81 (93) 76 09/22/20 11:15 111/81 09/22/20 11:05 118 24 100 09/22/20 11:00 129 22 93/72 (79) 81 09/22/20 11:00 93/72 09/22/20 10:45 100 09/22/20 10:45 131 22 87/73 (78) 81 09/22/20 10:45 87/73 09/22/20 10:30 130 27 81/62 (68) 78 09/22/20 10:30 81/62 09/22/20 10:30 81/62 09/22/20 10:15 112 34 101/42 (61) 72 09/22/20 10:00 107 25 116/30 (58) 80 09/22/20 10:00 116/30 09/22/20 09:45 112 29 77/64 (68) 68 09/22/20 09:30 109 28 110/85 (93) 80 09/22/20 09:15 99.0 109 27 199/90 (126) 74 09/22/20 09:13 119/73 09/22/20 09:00 111 30 119/73 (88) 74 09/22/20 09:00 119/73 09/22/20 09:00 119/73 Height (Feet): 5 Height (Inches): 9.00 Weight (Pounds): 190 Gen: NAD HEENT: NCAT Pulm: BL chest rise Abd: Non-distended Ext: No c/c/e Skin: No visible rashes Neuro: Awake Microbiology Date/Time Source Procedure Growth Status 09/22/20 14:00 Sputum Gram Stain - Final Resulted 09/22/20 14:00 Sputum Sputum Culture Pending Resulted 09/21/20 22:02 Nasopharynx SARS-CoV-2 RdRp Gene Assay - Final Complete 09/21/20 21:15 Blood Blood Culture - Preliminary Resulted 09/21/20 21:00 Blood Blood Culture - Preliminary Resulted Laboratory Tests Test 09/22/20 08:54 09/22/20 09:35 09/23/20 04:00 Arterial Blood pH 7.240 (7.350-7.450) Arterial Blood Partial Pressure CO2 38.8 mmHg (35.0-45.0) Arterial Blood Partial Pressure O2 132.2 mmHg (75.0-100.0) H Arterial Blood HCO3 16.3 mmol/L (22.0-26.0) *L Arterial Blood Oxygen Saturation 98.0 % (95-100) Arterial Blood Base Excess -10.4 (-2-2) *L Kush Test Positive White Blood Count 5.8 K/UL (4.8-10.8) 10.4 K/UL (4.8-10.8) # Red Blood Count 4.48 M/UL (4.70-6.10) L 3.32 M/UL (4.70-6.10) L Hemoglobin 14.1 G/DL (14.2-18.0) L 10.5 G/DL (14.2-18.0) L Hematocrit 43.3 % (42.0-52.0) 30.5 % (42.0-52.0) L Mean Corpuscular Volume 97 FL (80-99) 92 FL (80-99) Mean Corpuscular Hemoglobin 31.6 PG (27.0-31.0) H 31.6 PG (27.0-31.0) H Mean Corpuscular Hemoglobin Concent 32.6 G/DL (32.0-36.0) 34.4 G/DL (32.0-36.0) Red Cell Distribution Width 16.2 % (11.6-14.8) H 14.7 % (11.6-14.8) Platelet Count 85 K/UL (150-450) L 58 K/UL (150-450) L Mean Platelet Volume 11.1 FL (6.5-10.1) H 10.8 FL (6.5-10.1) H Neutrophils (%) (Auto) % (45.0-75.0) % (45.0-75.0) Lymphocytes (%) (Auto) % (20.0-45.0) % (20.0-45.0) Monocytes (%) (Auto) % (1.0-10.0) % (1.0-10.0) Eosinophils (%) (Auto) % (0.0-3.0) % (0.0-3.0) Basophils (%) (Auto) % (0.0-2.0) % (0.0-2.0) Differential Total Cells Counted 100 Neutrophils % (Manual) 91 % (45-75) H Pending Lymphocytes % (Manual) 6 % (20-45) L Pending Monocytes % (Manual) 3 % (1-10) Eosinophils % (Manual) 0 % (0-3) Basophils % (Manual) 0 % (0-2) Band Neutrophils 0 % (0-8) Platelet Estimate Decreased L Pending Platelet Morphology Normal Pending Anisocytosis 1+ Sodium Level 164 MMOL/L (136-145) *H 153 MMOL/L (136-145) #H Potassium Level 3.6 MMOL/L (3.5-5.1) 3.8 MMOL/L (3.5-5.1) Chloride Level 128 MMOL/L (98-107) H 122 MMOL/L (98-107) H Carbon Dioxide Level 20 MMOL/L (21-32) L 17 MMOL/L (21-32) L Anion Gap 16 mmol/L (5-15) H 14 mmol/L (5-15) Blood Urea Nitrogen 71 mg/dL (7-18) H 69 mg/dL (7-18) H Creatinine 5.9 MG/DL (0.55-1.30) H 5.2 MG/DL (0.55-1.30) H Estimat Glomerular Filtration Rate 9.4 mL/min (>60) 10.9 mL/min (>60) Glucose Level 203 MG/DL (74-106) H 213 MG/DL (74-106) H Uric Acid 13.3 MG/DL (2.6-7.2) H 11.0 MG/DL (2.6-7.2) H Calcium Level 7.2 MG/DL (8.5-10.1) L 6.2 MG/DL (8.5-10.1) L Phosphorus Level 2.6 MG/DL (2.5-4.9) 1.7 MG/DL (2.5-4.9) L Magnesium Level 2.0 MG/DL (1.8-2.4) 1.6 MG/DL (1.8-2.4) L Total Bilirubin 2.6 MG/DL (0.2-1.0) H 2.6 MG/DL (0.2-1.0) H Direct Bilirubin 1.8 MG/DL (0.0-0.3) H 2.1 MG/DL (0.0-0.3) H Aspartate Amino Transf (AST/SGOT) 124 U/L (15-37) H 100 U/L (15-37) H Alanine Aminotransferase (ALT/SGPT) 41 U/L (12-78) 35 U/L (12-78) Alkaline Phosphatase 101 U/L (46-116) 69 U/L (46-116) Total Protein 6.7 G/DL (6.4-8.2) 5.5 G/DL (6.4-8.2) L Albumin 2.0 G/DL (3.4-5.0) L 2.1 G/DL (3.4-5.0) L Globulin 4.7 g/dL 3.4 g/dL Albumin/Globulin Ratio 0.4 (1.0-2.7) L 0.6 (1.0-2.7) L Urine Eosinophils Pending Lactic Acid Level 3.20 mmol/L (0.4-2.0) H Gamma Glutamyl Transpeptidase 21 U/L (5-85) Total Creatine Kinase 1573 U/L (26-308) H Troponin I 3.167 ng/mL (0.000-0.056) C-Reactive Protein, Quantitative 30.5 mg/dL (0.00-0.90) H Pro-B-Type Natriuretic Peptide 98661 pg/mL (0-125) H Triglycerides Level 121 MG/DL (30-150) Cholesterol Level 53 MG/DL (< 200) LDL Cholesterol 18 mg/dL (<100) HDL Cholesterol 9 MG/DL (40-60) L Cholesterol/HDL Ratio 5.9 (3.3-4.4) H Lipase 43 U/L (73-393) L Thyroid Stimulating Hormone (TSH) 0.772 uiU/mL (0.358-3.740) Random Vancomycin Level 17.5 ug/mL Digoxin Level 0.5 NG/ML (0.5-2.0) Current Medications Medications (Trade) Dose Ordered Sig/Fabrizio Route PRN Reason Start Time Stop Time Status Last Admin Dose Admin Acetaminophen (Tylenol) 650 mg Q4H PRN ORAL fever 09/21/20 23:45 10/21/20 23:44 Albuterol/ Ipratropium (Albuterol/ Ipratropium) 3 ml Q4H PRN HHN Shortness of Breath 09/21/20 23:45 09/26/20 23:44 Amikacin Protocol (Amikacin pharmacy to dose) 1 ea DAILY PRN MISC . 09/22/20 05:00 10/22/20 04:59 Chlorhexidine Gluconate (Jennifer-Hex 2%) 1 applic DAILY@2000 TOPIC 09/22/20 20:00 12/21/20 19:59 09/22/20 20:00 Dextrose/Sodium Chloride 1,000 ml @ 200 mls/hr Q5H IV 09/22/20 11:00 10/22/20 10:59 09/23/20 06:48 Dopamine HCl/ Dextrose 250 ml @ 0 mls/hr Q24H IV 09/22/20 09:00 09/25/20 08:59 09/22/20 10:30 Haloperidol Lactate (Haldol) 5 mg Q6H PRN IM Agitation 09/21/20 23:45 11/05/20 23:44 Heparin Sodium (Porcine) (Heparin 5000 units/ml) 5,000 units EVERY 12 HOURS SUBQ 09/22/20 09:00 11/06/20 08:59 09/22/20 21:00 Iohexol (Omnipaque 350 100ml) 100 ml NOW PRN INJ Radiology Procedure 09/21/20 21:45 09/23/20 21:44 Lorazepam (Ativan 2mg/ml 1ml) 2 mg Q2H PRN IV For Anxiety 09/21/20 23:45 09/28/20 23:44 Meropenem 500 mg/ Sodium Chloride 55 ml @ 110 mls/hr Q12HR IVPB 09/22/20 10:00 09/27/20 09:59 09/22/20 21:00 Morphine Sulfate (Morphine Sulfate) 4 mg Q4H PRN IVP Severe Pain (Pain Scale 7-10) 09/21/20 23:45 09/28/20 23:44 Norepinephrine Bitartrate 16 mg/ Sodium Chloride 500 ml @ 0 mls/hr Q24H IV 09/22/20 16:00 09/25/20 15:59 09/23/20 01:50 Ondansetron HCl (Zofran) 4 mg Q6H PRN IVP Nausea & Vomiting 09/21/20 23:45 10/21/20 23:44 Pantoprazole (Protonix) 40 mg Q12HR IVP 09/22/20 21:00 10/22/20 08:59 09/22/20 21:00 Phenylephrine HCl 50 mg/Dextrose 250 ml @ 0 mls/hr Q24H IV 09/22/20 08:45 09/25/20 08:42 09/22/20 12:00 Polyethylene Glycol (Miralax) 17 gm DAILYPRN PRN ORAL Constipation 09/21/20 23:45 10/21/20 23:44 Vancomycin HCl 250 ml @ 166.667 mls/hr ONCE ONCE IVPB 09/23/20 09:00 09/23/20 10:29 Vancomycin HCl (Vanco pharmacy to dose) 1 ea DAILY PRN MISC PER RX PROTOCOL 09/22/20 07:45 10/22/20 07:44 Vasopressin 100 units/Sodium Chloride 100 ml @ 0 mls/hr Q24H IV 09/22/20 09:00 09/25/20 08:59 09/22/20 10:07 Rosaura Aviles M.D. Sep 23, 2020 08:47
[2020-09-23] MEDS: Heparin 5000 units/ml inj SUBQ SCH ×2 (08:49→21:00)
[2020-09-23] MEDS: Pantoprazole Inj IVP SCH ×2 (08:53→20:19)
[2020-09-23] MEDS: Meropenem 500mg/NS 55ml IVPB SCH ×4 (08:54→20:19)
[2020-09-23] MEDS: Vasopressin 100 UNITS in NS 95 ML IV SCH (09:00)
[2020-09-23] MEDS ORDERED: Vancomycin 1.25gm/250ml Premix IVPB ONE (09:00)
--- NOTE | 2020-09-23 09:00 | NUR ---
NURSE NOTES: Oral care provided.
--- NOTE | 2020-09-23 09:17 | Diagnostic Imaging Report ---
Indication: Dyspnea Technique: One view of the chest Comparison: 09/22/2020 Findings: There is increased pleural fluid on the left. There is retrocardiac consolidation which is increased. Left upper lung, right lung and pleural space are clear. There is a left chest bifocal pacemaker. Stable satisfactory positions of endotracheal and orogastric tubes. Impression: Increased left pleural effusion and retrocardiac consolidation.
--- NOTE | 2020-09-23 10:10 | NUR ---
RADIOLOGY DEPT., CHEST X-RAY DONE.-P.DYE
[2020-09-23] MEDS ORDERED: Potassium Phosphate 15mm/250ml 250 ML IVPB SCH (10:30)
--- NOTE | 2020-09-23 11:25 | Nephrology Progress Note ---
Assessment/Plan Problem List: (1) ANGI (acute kidney injury) (2) Septic shock (3) Hypernatremia (4) NSTEMI (non-ST elevated myocardial infarction) (5) Acute respiratory failure (6) Dehydration (7) Rhabdomyolysis Assessment Sepsis, shock Acute renal failure Acute respiratory failure Hypernatremia, dehydration Non-STEMI Plan September 23: Patient intubated on ventilator. Full code. Labs reviewed. IV fluid adjusted. Abnormal electrolytes addressed. Monitor CPK for rhabdo Previously: Fluid challenge IV hydration Albumin 5% Water through NG tube Monitor renal parameters Antibiotics Urine studies Avoid nephrotoxic's Poor prognosis Patient full code Per orders Subjective ROS Limited/Unobtainable: Yes Objective Objective Last 24 Hour Vital Signs Date Time Temp Pulse Resp B/P (MAP) Pulse Ox O2 Delivery O2 Flow Rate FiO2 09/23/20 11:00 129 16 123/74 (90) 100 09/23/20 11:00 123/74 09/23/20 10:30 127 17 112/73 (86) 100 09/23/20 10:00 111/64 09/23/20 10:00 127 17 111/64 (80) 100 09/23/20 09:50 50 09/23/20 09:30 126 17 112/70 (84) 100 09/23/20 09:00 116/64 09/23/20 09:00 125 18 116/64 (81) 100 09/23/20 08:30 125 20 106/66 (79) 100 09/23/20 08:23 123 09/23/20 08:15 125 19 113/63 (80) 100 09/23/20 08:00 60 09/23/20 08:00 99.0 123 21 110/68 (82) 100 09/23/20 08:00 110/68 09/23/20 08:00 Mechanical Ventilator 09/23/20 07:30 123 24 106/68 (81) 100 09/23/20 07:15 123 22 107/68 (81) 100 09/23/20 07:00 122 22 108/66 (80) 100 09/23/20 07:00 108/66 09/23/20 06:03 124 26 09/23/20 06:00 91/59 09/23/20 06:00 122 27 97/65 (76) 100 09/23/20 05:30 123 26 96/59 (71) 100 09/23/20 05:15 123 26 92/66 (75) 100 09/23/20 05:00 149 22 89/67 (74) 100 09/23/20 05:00 103/59 09/23/20 04:59 145 22 143/86 (105) 100 09/23/20 04:45 124 22 102/66 (78) 100 09/23/20 04:30 123 22 106/71 (83) 100 09/23/20 04:15 125 22 93/64 (74) 100 09/23/20 04:00 99.8 124 22 94/61 (72) 100 09/23/20 04:00 132 09/23/20 04:00 Mechanical Ventilator 09/23/20 04:00 122/70 09/23/20 04:00 60 09/23/20 04:00 60 09/23/20 03:53 126 22 106/71 (83) 100 09/23/20 03:45 127 22 92/65 (74) 100 09/23/20 03:30 127 22 120/80 (93) 100 09/23/20 03:00 130 22 129/78 (95) 100 09/23/20 03:00 132/66 09/23/20 03:00 124 22 100 09/23/20 02:45 131 22 130/80 (97) 100 09/23/20 02:30 135 22 127/77 (94) 100 09/23/20 02:15 133 21 118/73 (88) 100 09/23/20 02:05 123/59 09/23/20 02:00 131 22 111/76 (88) 100 09/23/20 02:00 125/59 09/23/20 01:50 135/74 09/23/20 01:30 129 23 143/95 (111) 100 09/23/20 01:00 138 22 135/74 (94) 100 09/23/20 01:00 135/74 09/23/20 00:30 138 22 109/68 (82) 100 09/23/20 00:00 80 09/23/20 00:00 132 09/23/20 00:00 Mechanical Ventilator 09/23/20 00:00 125/73 09/23/20 00:00 98.5 135 22 141/102 (115) 100 09/22/20 23:45 132 22 118/82 (94) 100 09/22/20 23:30 135 22 126/87 (100) 100 09/22/20 23:13 138 22 100 09/22/20 23:00 134 22 116/67 (83) 96 09/22/20 23:00 121/90 09/22/20 22:45 145 22 121/70 (87) 100 09/22/20 22:30 137 22 121/58 (79) 100 09/22/20 22:15 136 21 131/62 (85) 98 09/22/20 22:00 132 22 141/86 (104) 99 09/22/20 22:00 131/62 09/22/20 21:45 130 21 139/79 (99) 100 09/22/20 21:30 130 21 123/62 (82) 100 09/22/20 21:15 135 26 125/82 (96) 99 09/22/20 21:00 171 26 133/83 (100) 99 09/22/20 21:00 125/82 09/22/20 20:45 137 30 119/65 (83) 99 09/22/20 20:30 132 36 154/116 (129) 97 09/22/20 20:15 135 33 90/77 (81) 96 09/22/20 20:08 152 32 88/59 (69) 100 09/22/20 20:05 147 30 47/28 (34) 100 09/22/20 20:00 Mechanical Ventilator 09/22/20 20:00 47/28 09/22/20 20:00 135 09/22/20 20:00 90 09/22/20 20:00 99.0 150 32 75/58 (64) 100 09/22/20 19:49 161 21 76/52 (60) 99 09/22/20 19:45 148 22 101/68 (79) 100 09/22/20 19:41 151 25 71/32 (45) 100 09/22/20 19:40 148 22 85/49 (61) 100 09/22/20 19:38 141 24 71/47 (55) 100 09/22/20 19:36 146 18 88/55 (66) 100 09/22/20 19:30 87/49 09/22/20 19:30 147 24 82/52 (62) 100 12/23/20 19:15 124 24 122/64 (83) 100 09/22/20 19:15 122/64 09/22/20 19:00 141 25 114/65 (81) 100 09/22/20 19:00 114/65 09/22/20 18:45 117 27 127/69 (88) 100 09/22/20 18:39 110 26 100 09/22/20 18:30 124 27 142/74 (96) 99 09/22/20 18:23 100 09/22/20 18:15 134 26 127/74 (91) 100 09/22/20 18:00 144 23 173/93 (119) 100 09/22/20 18:00 173/93 09/22/20 17:45 141 27 174/105 (128) 100 09/22/20 17:30 143 24 164/84 (110) 100 09/22/20 17:15 134 26 132/77 (95) 100 09/22/20 17:00 127 27 115/52 (73) 100 09/22/20 17:00 113/82 09/22/20 16:45 132 26 128/65 (86) 98 09/22/20 16:36 149/89 09/22/20 16:30 153 25 149/89 (109) 99 09/22/20 16:15 155 25 113/82 (92) 99 09/22/20 16:00 Mechanical Ventilator 09/22/20 16:00 98.1 153 22 93/70 (78) 99 09/22/20 16:00 124 09/22/20 15:59 149 26 100 09/22/20 15:45 118 26 72/44 (53) 100 09/22/20 15:30 115 24 93/79 (84) 99 09/22/20 15:15 125 24 131/63 (85) 99 09/22/20 15:00 144 24 148/106 (120) 94 09/22/20 14:56 149 25 97 Mechanical Ventilator 100 09/22/20 14:45 144 19 199/168 (178) 92 09/22/20 14:30 140 23 182/155 (164) 65 09/22/20 14:15 131 28 165/141 (149) 58 09/22/20 14:00 147 23 114/83 (93) 60 09/22/20 13:57 128/110 09/22/20 13:45 145 23 121/107 (112) 73 09/22/20 13:30 149 24 121/106 (111) 70 09/22/20 13:15 150 24 74/60 (65) 85 09/22/20 13:00 151 23 96/61 (73) 68 09/22/20 12:45 152 24 90/51 (64) 75 09/22/20 12:30 159 24 108/97 (101) 80 09/22/20 12:15 162 24 122/77 (92) 70 09/22/20 12:03 175 09/22/20 12:00 100 09/22/20 12:00 164 09/22/20 12:00 170 96/61 09/22/20 12:00 Mechanical Ventilator 09/22/20 12:00 98.4 175 23 91/69 (76) 68 09/22/20 11:45 175 24 91/62 (72) 69 09/22/20 11:41 111/81 09/22/20 11:30 98/65 09/22/20 11:30 120 22 111/81 (91) 72 Intake and Output 09/22/20 09/23/20 19:00 07:00 Intake Total 3624.66958 ml 2640.8250 ml Output Total 110 ml 215 ml Balance 3514.90362 ml 2425.8250 ml Intake Free Water 100 ml IV Total 3624.94607 ml 2540.8250 ml Output Urine Total 110 ml 215 ml # Bowel Movements 2 Laboratory Tests 09/23/20 04:00: White Blood Count 10.4#, Red Blood Count 3.32L, Hemoglobin 10.5L, Hematocrit 30.5L, Mean Corpuscular Volume 92, Mean Corpuscular Hemoglobin 31.6H, Mean Corpuscular Hemoglobin Concent 34.4, Red Cell Distribution Width 14.7, Platelet Count 58L, Mean Platelet Volume 10.8H, Neutrophils (%) (Auto) , Lymphocytes (%) (Auto) , Monocytes (%) (Auto) , Eosinophils (%) (Auto) , Basophils (%) (Auto) , Neutrophils % (Manual) [Pending], Lymphocytes % (Manual) [Pending], Platelet Estimate [Pending], Platelet Morphology [Pending], Urine Eosinophils None seen, Sodium Level 153#H, Potassium Level 3.8, Chloride Level 122H, Carbon Dioxide Level 17L, Anion Gap 14, Blood Urea Nitrogen 69H, Creatinine 5.2H, Estimat Glomerular Filtration Rate 10.9, Glucose Level 213H, Lactic Acid Level 3.20H, Uric Acid 11.0H, Calcium Level 6.2L, Phosphorus Level 1.7L, Magnesium Level 1.6L , Total Bilirubin 2.6H, Direct Bilirubin 2.1H, Gamma Glutamyl Transpeptidase 21, Aspartate Amino Transf (AST/SGOT) 100H, Alanine Aminotransferase (ALT/SGPT) 35, Alkaline Phosphatase 69, Total Creatine Kinase 1573H, Troponin I 3.167H, C- Reactive Protein, Quantitative 30.5H, Pro-B-Type Natriuretic Peptide 22431G, Total Protein 5.5L, Albumin 2.1L, Globulin 3.4, Albumin/Globulin Ratio 0.6L, Triglycerides Level 121, Cholesterol Level 53, LDL Cholesterol 18, HDL Cholesterol 9L, Cholesterol/HDL Ratio 5.9H, Lipase 43L, Thyroid Stimulating Hormone (TSH) 0.772, Random Vancomycin Level 17.5, Digoxin Level 0.5 09/23/20 08:14: Arterial Blood pH 7.334L, Arterial Blood Partial Pressure CO2 31.5L, Arterial Blood Partial Pressure O2 101.2H, Arterial Blood HCO3 16.4*L, Arterial Blood Oxygen Saturation 97.1, Arterial Blood Base Excess -8.4L, Kush Test Positive 09/23/20 08:45: Lactic Acid Level 3.00H Height (Feet): 5 Height (Inches): 9.00 Weight (Pounds): 190 General Appearance: no apparent distress EENT: other - Intubated on ventilator Cardiovascular: tachycardia Respiratory/Chest: decreased breath sounds Abdomen: distended Gelacio Mata MD Sep 23, 2020 11:25
[2020-09-23] MEDS ORDERED: Digoxin 0.125mg tab ORAL SCH (11:45)
--- NOTE | 2020-09-23 12:00 | NUR ---
NURSE NOTES: Decreased vasopressin drip to 0.002 units/min. Latest blood pressure of 126/73.
--- NOTE | 2020-09-23 12:32 | NUR ---
NURSE NOTES:WOUND CARE NOTES:Pt presented on admission with multiple Pressure Injuries.Cat 3 Skin Tear pily L chest. Base of wound is moist ,viable with 100% flap loss.No exudate noted. Cat 2 Skin Tear ventral L forearm. 20% skin flap loss,80% flap in-situ. Cat 2 Skin tear dorsal L forearm with 10% flap loss,90% skin flap in situ. Sacral DTPI(L)12cm x (W)17.5cm. Base of Pressure injury maroon with scattered Purpuric areas within base of injury. Surrounding non-blanchable erythema without induration. Perianal area is erythematous. Partial Thickness Pressure injury at head of penis. Base of wound is moist and viable. Both R and L Heels are Boggy with Non-blanchable erythema. Tx.Plan: Apply Optifoam drsgs to L chest, L forearm. Change every 7 days and prn. Apply Moisture Barrier Past to sacrum. Cover with Optifoam drsg. Change every 3 days and prn. Apply Moisture Barrier Paste to penis and Perianal areas with each incontinence care. Apply Cavilon Skin Barrier to both heels. Cover each heel with Optifoam drsg. Change every 7 days and prn. Reposition at least every 2hours or as tolerated. Off-load heels with Pillow. APM/JARED Mattress.
--- NOTE | 2020-09-23 12:36 | Surgery Progress Note ---
Surgery Progress Note Subjective Additional Comments covid negative weaning pressors elevated liver bili us ordered Objective Last 24 Hour Vital Signs Date Time Temp Pulse Resp B/P (MAP) Pulse Ox O2 Delivery O2 Flow Rate FiO2 09/23/20 11:55 129 09/23/20 11:00 129 16 123/74 (90) 100 09/23/20 11:00 123/74 09/23/20 10:30 127 17 112/73 (86) 100 09/23/20 10:00 111/64 09/23/20 10:00 127 17 111/64 (80) 100 09/23/20 09:50 50 09/23/20 09:30 126 17 112/70 (84) 100 09/23/20 09:00 116/64 09/23/20 09:00 125 18 116/64 (81) 100 09/23/20 08:30 125 20 106/66 (79) 100 09/23/20 08:23 123 09/23/20 08:15 125 19 113/63 (80) 100 09/23/20 08:00 60 09/23/20 08:00 99.0 123 21 110/68 (82) 100 09/23/20 08:00 110/68 09/23/20 08:00 Mechanical Ventilator 09/23/20 07:30 123 24 106/68 (81) 100 09/23/20 07:15 123 22 107/68 (81) 100 09/23/20 07:00 122 22 108/66 (80) 100 09/23/20 07:00 108/66 09/23/20 06:03 124 26 09/23/20 06:00 91/59 09/23/20 06:00 122 27 97/65 (76) 100 09/23/20 05:30 123 26 96/59 (71) 100 09/23/20 05:15 123 26 92/66 (75) 100 09/23/20 05:00 149 22 89/67 (74) 100 09/23/20 05:00 103/59 09/23/20 04:59 145 22 143/86 (105) 100 09/23/20 04:45 124 22 102/66 (78) 100 09/23/20 04:30 123 22 106/71 (83) 100 09/23/20 04:15 125 22 93/64 (74) 100 09/23/20 04:00 99.8 124 22 94/61 (72) 100 09/23/20 04:00 132 09/23/20 04:00 Mechanical Ventilator 09/23/20 04:00 122/70 09/23/20 04:00 60 09/23/20 04:00 60 09/23/20 03:53 126 22 106/71 (83) 100 09/23/20 03:45 127 22 92/65 (74) 100 09/23/20 03:30 127 22 120/80 (93) 100 09/23/20 03:00 130 22 129/78 (95) 100 09/23/20 03:00 132/66 09/23/20 03:00 124 22 100 09/23/20 02:45 131 22 130/80 (97) 100 09/23/20 02:30 135 22 127/77 (94) 100 09/23/20 02:15 133 21 118/73 (88) 100 09/23/20 02:05 123/59 09/23/20 02:00 131 22 111/76 (88) 100 09/23/20 02:00 125/59 09/23/20 01:50 135/74 09/23/20 01:30 129 23 143/95 (111) 100 09/23/20 01:00 138 22 135/74 (94) 100 09/23/20 01:00 135/74 09/23/20 00:30 138 22 109/68 (82) 100 09/23/20 00:00 80 09/23/20 00:00 132 09/23/20 00:00 Mechanical Ventilator 09/23/20 00:00 125/73 09/23/20 00:00 98.5 135 22 141/102 (115) 100 09/22/20 23:45 132 22 118/82 (94) 100 09/22/20 23:30 135 22 126/87 (100) 100 09/22/20 23:13 138 22 100 09/22/20 23:00 134 22 116/67 (83) 96 09/22/20 23:00 121/90 09/22/20 22:45 145 22 121/70 (87) 100 09/22/20 22:30 137 22 121/58 (79) 100 09/22/20 22:15 136 21 131/62 (85) 98 09/22/20 22:00 132 22 141/86 (104) 99 09/22/20 22:00 131/62 09/22/20 21:45 130 21 139/79 (99) 100 09/22/20 21:30 130 21 123/62 (82) 100 09/22/20 21:15 135 26 125/82 (96) 99 09/22/20 21:00 171 26 133/83 (100) 99 09/22/20 21:00 125/82 09/22/20 20:45 137 30 119/65 (83) 99 09/22/20 20:30 132 36 154/116 (129) 97 09/22/20 20:15 135 33 90/77 (81) 96 09/22/20 20:08 152 32 88/59 (69) 100 09/22/20 20:05 147 30 47/28 (34) 100 09/22/20 20:00 Mechanical Ventilator 09/22/20 20:00 47/28 09/22/20 20:00 135 09/22/20 20:00 90 09/22/20 20:00 99.0 150 32 75/58 (64) 100 09/22/20 19:49 161 21 76/52 (60) 99 09/22/20 19:45 148 22 101/68 (79) 100 09/22/20 19:41 151 25 71/32 (45) 100 09/22/20 19:40 148 22 85/49 (61) 100 09/22/20 19:38 141 24 71/47 (55) 100 09/22/20 19:36 146 18 88/55 (66) 100 09/22/20 19:30 87/49 09/22/20 19:30 147 24 82/52 (62) 100 09/22/20 19:15 124 24 122/64 (83) 100 09/22/20 19:15 122/64 09/22/20 19:00 141 25 114/65 (81) 100 09/22/20 19:00 114/65 09/22/20 18:45 117 27 127/69 (88) 100 09/22/20 18:39 110 26 100 09/22/20 18:30 124 27 142/74 (96) 99 09/22/20 18:23 100 09/22/20 18:15 134 26 127/74 (91) 100 09/22/20 18:00 144 23 173/93 (119) 100 09/22/20 18:00 173/93 09/22/20 17:45 141 27 174/105 (128) 100 09/22/20 17:30 143 24 164/84 (110) 100 09/22/20 17:15 134 26 132/77 (95) 100 09/22/20 17:00 127 27 115/52 (73) 100 09/22/20 17:00 113/82 09/22/20 16:45 132 26 128/65 (86) 98 09/22/20 16:36 149/89 09/22/20 16:30 153 25 149/89 (109) 99 09/22/20 16:15 155 25 113/82 (92) 99 09/22/20 16:00 Mechanical Ventilator 09/22/20 16:00 98.1 153 22 93/70 (78) 99 09/22/20 16:00 124 09/22/20 15:59 149 26 100 09/22/20 15:45 118 26 72/44 (53) 100 09/22/20 15:30 115 24 93/79 (84) 99 09/22/20 15:15 125 24 131/63 (85) 99 09/22/20 15:00 144 24 148/106 (120) 94 09/22/20 14:56 149 25 97 Mechanical Ventilator 100 09/22/20 14:45 144 19 199/168 (178) 92 09/22/20 14:30 140 23 182/155 (164) 65 09/22/20 14:15 131 28 165/141 (149) 58 09/22/20 14:00 147 23 114/83 (93) 60 09/22/20 13:57 128/110 09/22/20 13:45 145 23 121/107 (112) 73 09/22/20 13:30 149 24 121/106 (111) 70 09/22/20 13:15 150 24 74/60 (65) 85 09/22/20 13:00 151 23 96/61 (73) 68 09/22/20 12:45 152 24 90/51 (64) 75 I&O Intake and Output 09/22/20 09/23/20 19:00 07:00 Intake Total 3624.61021 ml 2640.8250 ml Output Total 110 ml 215 ml Balance 3514.19015 ml 2425.8250 ml Intake Free Water 100 ml IV Total 3624.08640 ml 2540.8250 ml Output Urine Total 110 ml 215 ml # Bowel Movements 2 Dressing: saturated Cardiovascular: RSR Respiratory: decreased breath sounds Abdomen: non-tender, present bowel sounds, non-distended Extremities: no tenderness, no cyanosis Laboratory Tests Test 09/23/20 04:00 09/23/20 08:14 09/23/20 08:45 White Blood Count 10.4 K/UL (4.8-10.8) # Red Blood Count 3.32 M/UL (4.70-6.10) L Hemoglobin 10.5 G/DL (14.2-18.0) L Hematocrit 30.5 % (42.0-52.0) L Mean Corpuscular Volume 92 FL (80-99) Mean Corpuscular Hemoglobin 31.6 PG (27.0-31.0) H Mean Corpuscular Hemoglobin Concent 34.4 G/DL (32.0-36.0) Red Cell Distribution Width 14.7 % (11.6-14.8) Platelet Count 58 K/UL (150-450) L Mean Platelet Volume 10.8 FL (6.5-10.1) H Neutrophils (%) (Auto) % (45.0-75.0) Lymphocytes (%) (Auto) % (20.0-45.0) Monocytes (%) (Auto) % (1.0-10.0) Eosinophils (%) (Auto) % (0.0-3.0) Basophils (%) (Auto) % (0.0-2.0) Differential Total Cells Counted 100 Neutrophils % (Manual) 76 % (45-75) H Lymphocytes % (Manual) 9 % (20-45) L Monocytes % (Manual) 9 % (1-10) Eosinophils % (Manual) 0 % (0-3) Basophils % (Manual) 0 % (0-2) Band Neutrophils 6 % (0-8) Platelet Estimate Decreased L Platelet Morphology Normal Hypochromasia 1+ Anisocytosis 1+ Urine Eosinophils None seen (NONE SEEN) Sodium Level 153 MMOL/L (136-145) #H Potassium Level 3.8 MMOL/L (3.5-5.1) Chloride Level 122 MMOL/L (98-107) H Carbon Dioxide Level 17 MMOL/L (21-32) L Anion Gap 14 mmol/L (5-15) Blood Urea Nitrogen 69 mg/dL (7-18) H Creatinine 5.2 MG/DL (0.55-1.30) H Estimat Glomerular Filtration Rate 10.9 mL/min (>60) Glucose Level 213 MG/DL (74-106) H Lactic Acid Level 3.20 mmol/L (0.4-2.0) H 3.00 mmol/L (0.66-2.22) H Uric Acid 11.0 MG/DL (2.6-7.2) H Calcium Level 6.2 MG/DL (8.5-10.1) L Phosphorus Level 1.7 MG/DL (2.5-4.9) L Magnesium Level 1.6 MG/DL (1.8-2.4) L Total Bilirubin 2.6 MG/DL (0.2-1.0) H Direct Bilirubin 2.1 MG/DL (0.0-0.3) H Gamma Glutamyl Transpeptidase 21 U/L (5-85) Aspartate Amino Transf (AST/SGOT) 100 U/L (15-37) H Alanine Aminotransferase (ALT/SGPT) 35 U/L (12-78) Alkaline Phosphatase 69 U/L (46-116) Total Creatine Kinase 1573 U/L (26-308) H Troponin I 3.167 ng/mL (0.000-0.056) C-Reactive Protein, Quantitative 30.5 mg/dL (0.00-0.90) H Pro-B-Type Natriuretic Peptide 12495 pg/mL (0-125) H Total Protein 5.5 G/DL (6.4-8.2) L Albumin 2.1 G/DL (3.4-5.0) L Globulin 3.4 g/dL Albumin/Globulin Ratio 0.6 (1.0-2.7) L Triglycerides Level 121 MG/DL (30-150) Cholesterol Level 53 MG/DL (< 200) LDL Cholesterol 18 mg/dL (<100) HDL Cholesterol 9 MG/DL (40-60) L Cholesterol/HDL Ratio 5.9 (3.3-4.4) H Lipase 43 U/L (73-393) L Thyroid Stimulating Hormone (TSH) 0.772 uiU/mL (0.358-3.740) Random Vancomycin Level 17.5 ug/mL Digoxin Level 0.5 NG/ML (0.5-2.0) Arterial Blood pH 7.334 (7.350-7.450) Arterial Blood Partial Pressure CO2 31.5 mmHg (35.0-45.0) L Arterial Blood Partial Pressure O2 101.2 mmHg (75.0-100.0) H Arterial Blood HCO3 16.4 mmol/L (22.0-26.0) *L Arterial Blood Oxygen Saturation 97.1 % (95-100) Arterial Blood Base Excess -8.4 (-2-2) L Kush Test Positive Plan Problems: (1) Septic shock Assessment & Plan: anemia lactic acidosis elevated t bili / d bili imaging reviewed ill appearing weaning pressors as tolerated local care provided will follow with recs thank you DAILY ESTIMATED NEEDS: Needs based on Critical care, wound, ARF/ 77kg abw 22-28 kcals/kg 7992-8130 total kcals 0.8-1.25 (increase w/ renal improvement) g protein/kg 61-96 g total protein 20-25 mL/kg 2719-2191 total fluid mLs NUTRITION DIAGNOSIS: Swallowing difficulty r/t respiratory failure as evidenced by orally intubated upon adm, now s/p code blue (09/22), on pressor support. CURRENT TF:npo PO DIET RECOMMENDATIONS: DISPLAYER MERCHANDISE eval post extubation ENTERAL NUTRITION RECOMMENDATIONS: Glucerna 1.2 @ 60ml/hr x 24 hrs to provide 1440ml, 1728kcal, 86g prot, 1159ml f ree water * WITH HEMODYNAMIC STABILITY -> Initiate Glucerna 1.2 @ 20ml/hrs x 6 hrs, advance 10ml q 4-6 hrs as tolerated to goal -> Flush per MD. HOB over 30 degrees -> Monitor renal fxn and lytes, need for renal TF of Nepro Without hemodynamic stability: rec trophic feeding of Glucerna 1.2 @ 10- 15ml/hr x 24 hrs ADDITIONAL RECOMMENDATIONS: * Calibrated bedscale wt * Monitor hemodynamic stability, ability to feed * Monitor renal fxn and lytes, need for renal TF formula (creat wnl last adm -> 5.2 at this time, K wnl, phos and mag low) * NISS w/ TF * Wound healing: f/up w/ WC eval, add Omar BID w/ TF (2) Multiorgan failure (3) Rapid atrial fibrillation (4) Compression fracture of L3 vertebra (5) Social isolation (6) Impaired mobility and ADLs (7) UTI (urinary tract infection) (8) Suicidal ideations (9) HTN (hypertension) (10) Failure to thrive in adult (11) Renal failure (ARF), acute on chronic (12) ANGI (acute kidney injury) (13) BPH (benign prostatic hyperplasia) (14) Schizoaffective disorder (15) Sick sinus syndrome (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 There is retrocardiac consolidation which is increased. Left upper lung, right lung and pleural space are clear. There is a left chest bifocal pacemaker. Stable satisfactory positions of endotracheal and orogastric tubes. Impression: Increased left pleural effusion and retrocardiac consolidation. Eber Slater Sep 23, 2020 12:36
--- NOTE | 2020-09-23 13:00 | NUR ---
NURSE NOTES: Decreased vasopressin drip to 0.001 units/min. Latest blood pressure of 119/67.
--- NOTE | 2020-09-23 13:13 | Cardiac Electrophysiology PN ---
Assessment/Plan Assessment/Plan 1. Atrial fib with RVR and Episode of pulseless electrical activity after ventricular tachycardia. The patient is already on Levophed and vasopressin. Dopamine could have caused the irritability of the heart causing ventricular tachycardia. On Dig 0.125 po daily Dig level in am 2. NSTEMI 3.0 could be due to renal failure as well as septic shock. 3. Septic shock. Continue Levophed and vasopressin and Enrrique-Synephrine. 4. Respiratory failure, on the ventilator, 100% FiO2 on a PEEP of 8. 5. Severe azotemia with sodium of 170 and very high BUN and creatinine. Cr still 5.2 The patient is on D5 and quarter-normal saline at 200 mL/hour per Dr. Mata. Subjective Subjective In ICU on the vent on Levo 12 mcg and Vasopressin. Getting albumin. Got Dig 0.5 for atrial fib with RVR Objective Last 24 Hour Vital Signs Date Time Temp Pulse Resp B/P (MAP) Pulse Ox O2 Delivery O2 Flow Rate FiO2 09/23/20 11:55 129 09/23/20 11:00 129 16 123/74 (90) 100 09/23/20 11:00 123/74 09/23/20 10:30 127 17 112/73 (86) 100 09/23/20 10:00 111/64 09/23/20 10:00 127 17 111/64 (80) 100 09/23/20 09:50 50 09/23/20 09:30 126 17 112/70 (84) 100 09/23/20 09:00 116/64 09/23/20 09:00 125 18 116/64 (81) 100 09/23/20 08:30 125 20 106/66 (79) 100 09/23/20 08:23 123 09/23/20 08:15 125 19 113/63 (80) 100 09/23/20 08:00 60 09/23/20 08:00 99.0 123 21 110/68 (82) 100 09/23/20 08:00 110/68 09/23/20 08:00 Mechanical Ventilator 09/23/20 07:30 123 24 106/68 (81) 100 09/23/20 07:15 123 22 107/68 (81) 100 09/23/20 07:00 122 22 108/66 (80) 100 09/23/20 07:00 108/66 09/23/20 06:03 124 26 09/23/20 06:00 91/59 09/23/20 06:00 122 27 97/65 (76) 100 09/23/20 05:30 123 26 96/59 (71) 100 09/23/20 05:15 123 26 92/66 (75) 100 09/23/20 05:00 149 22 89/67 (74) 100 09/23/20 05:00 103/59 09/23/20 04:59 145 22 143/86 (105) 100 09/23/20 04:45 124 22 102/66 (78) 100 09/23/20 04:30 123 22 106/71 (83) 100 09/23/20 04:15 125 22 93/64 (74) 100 09/23/20 04:00 99.8 124 22 94/61 (72) 100 09/23/20 04:00 132 09/23/20 04:00 Mechanical Ventilator 09/23/20 04:00 122/70 09/23/20 04:00 60 09/23/20 04:00 60 09/23/20 03:53 126 22 106/71 (83) 100 09/23/20 03:45 127 22 92/65 (74) 100 09/23/20 03:30 127 22 120/80 (93) 100 09/23/20 03:00 130 22 129/78 (95) 100 09/23/20 03:00 132/66 09/23/20 03:00 124 22 100 09/23/20 02:45 131 22 130/80 (97) 100 09/23/20 02:30 135 22 127/77 (94) 100 09/23/20 02:15 133 21 118/73 (88) 100 09/23/20 02:05 123/59 09/23/20 02:00 131 22 111/76 (88) 100 09/23/20 02:00 125/59 09/23/20 01:50 135/74 09/23/20 01:30 129 23 143/95 (111) 100 09/23/20 01:00 138 22 135/74 (94) 100 09/23/20 01:00 135/74 09/23/20 00:30 138 22 109/68 (82) 100 09/23/20 00:00 80 09/23/20 00:00 132 09/23/20 00:00 Mechanical Ventilator 09/23/20 00:00 125/73 09/23/20 00:00 98.5 135 22 141/102 (115) 100 09/22/20 23:45 132 22 118/82 (94) 100 09/22/20 23:30 135 22 126/87 (100) 100 09/22/20 23:13 138 22 100 09/22/20 23:00 134 22 116/67 (83) 96 09/22/20 23:00 121/90 09/22/20 22:45 145 22 121/70 (87) 100 09/22/20 22:30 137 22 121/58 (79) 100 09/22/20 22:15 136 21 131/62 (85) 98 09/22/20 22:00 132 22 141/86 (104) 99 09/22/20 22:00 131/62 09/22/20 21:45 130 21 139/79 (99) 100 09/22/20 21:30 130 21 123/62 (82) 100 09/22/20 21:15 135 26 125/82 (96) 99 09/22/20 21:00 171 26 133/83 (100) 99 09/22/20 21:00 125/82 09/22/20 20:45 137 30 119/65 (83) 99 09/22/20 20:30 132 36 154/116 (129) 97 09/22/20 20:15 135 33 90/77 (81) 96 09/22/20 20:08 152 32 88/59 (69) 100 09/22/20 20:05 147 30 47/28 (34) 100 09/22/20 20:00 Mechanical Ventilator 09/22/20 20:00 47/28 09/22/20 20:00 135 09/22/20 20:00 90 09/22/20 20:00 99.0 150 32 75/58 (64) 100 09/22/20 19:49 161 21 76/52 (60) 99 09/22/20 19:45 148 22 101/68 (79) 100 09/22/20 19:41 151 25 71/32 (45) 100 09/22/20 19:40 148 22 85/49 (61) 100 09/22/20 19:38 141 24 71/47 (55) 100 09/22/20 19:36 146 18 88/55 (66) 100 09/22/20 19:30 87/49 09/22/20 19:30 147 24 82/52 (62) 100 09/22/20 19:15 124 24 122/64 (83) 100 09/22/20 19:15 122/64 09/22/20 19:00 141 25 114/65 (81) 100 09/22/20 19:00 114/65 09/22/20 18:45 117 27 127/69 (88) 100 09/22/20 18:39 110 26 100 09/22/20 18:30 124 27 142/74 (96) 99 09/22/20 18:23 100 09/22/20 18:15 134 26 127/74 (91) 100 09/22/20 18:00 144 23 173/93 (119) 100 09/22/20 18:00 173/93 09/22/20 17:45 141 27 174/105 (128) 100 09/22/20 17:30 143 24 164/84 (110) 100 09/22/20 17:15 134 26 132/77 (95) 100 09/22/20 17:00 127 27 115/52 (73) 100 09/22/20 17:00 113/82 09/22/20 16:45 132 26 128/65 (86) 98 09/22/20 16:36 149/89 09/22/20 16:30 153 25 149/89 (109) 99 09/22/20 16:15 155 25 113/82 (92) 99 09/22/20 16:00 Mechanical Ventilator 09/22/20 16:00 98.1 153 22 93/70 (78) 99 09/22/20 16:00 124 09/22/20 15:59 149 26 100 09/22/20 15:45 118 26 72/44 (53) 100 09/22/20 15:30 115 24 93/79 (84) 99 09/22/20 15:15 125 24 131/63 (85) 99 09/22/20 15:00 144 24 148/106 (120) 94 09/22/20 14:56 149 25 97 Mechanical Ventilator 100 09/22/20 14:45 144 19 199/168 (178) 92 09/22/20 14:30 140 23 182/155 (164) 65 09/22/20 14:15 131 28 165/141 (149) 58 09/22/20 14:00 147 23 114/83 (93) 60 09/22/20 13:57 128/110 09/22/20 13:45 145 23 121/107 (112) 73 09/22/20 13:30 149 24 121/106 (111) 70 09/22/20 13:15 150 24 74/60 (65) 85 Intake and Output 09/22/20 09/23/20 19:00 07:00 Intake Total 3624.79301 ml 2640.8250 ml Output Total 110 ml 215 ml Balance 3514.70042 ml 2425.8250 ml Intake Free Water 100 ml IV Total 3624.00861 ml 2540.8250 ml Output Urine Total 110 ml 215 ml # Bowel Movements 2 Laboratory Tests Test 09/23/20 04:00 09/23/20 08:14 09/23/20 08:45 White Blood Count 10.4 K/UL (4.8-10.8) # Red Blood Count 3.32 M/UL (4.70-6.10) L Hemoglobin 10.5 G/DL (14.2-18.0) L Hematocrit 30.5 % (42.0-52.0) L Mean Corpuscular Volume 92 FL (80-99) Mean Corpuscular Hemoglobin 31.6 PG (27.0-31.0) H Mean Corpuscular Hemoglobin Concent 34.4 G/DL (32.0-36.0) Red Cell Distribution Width 14.7 % (11.6-14.8) Platelet Count 58 K/UL (150-450) L Mean Platelet Volume 10.8 FL (6.5-10.1) H Neutrophils (%) (Auto) % (45.0-75.0) Lymphocytes (%) (Auto) % (20.0-45.0) Monocytes (%) (Auto) % (1.0-10.0) Eosinophils (%) (Auto) % (0.0-3.0) Basophils (%) (Auto) % (0.0-2.0) Differential Total Cells Counted 100 Neutrophils % (Manual) 76 % (45-75) H Lymphocytes % (Manual) 9 % (20-45) L Monocytes % (Manual) 9 % (1-10) Eosinophils % (Manual) 0 % (0-3) Basophils % (Manual) 0 % (0-2) Band Neutrophils 6 % (0-8) Platelet Estimate Decreased L Platelet Morphology Normal Hypochromasia 1+ Anisocytosis 1+ Urine Eosinophils None seen (NONE SEEN) Sodium Level 153 MMOL/L (136-145) #H Potassium Level 3.8 MMOL/L (3.5-5.1) Chloride Level 122 MMOL/L (98-107) H Carbon Dioxide Level 17 MMOL/L (21-32) L Anion Gap 14 mmol/L (5-15) Blood Urea Nitrogen 69 mg/dL (7-18) H Creatinine 5.2 MG/DL (0.55-1.30) H Estimat Glomerular Filtration Rate 10.9 mL/min (>60) Glucose Level 213 MG/DL (74-106) H Lactic Acid Level 3.20 mmol/L (0.4-2.0) H 3.00 mmol/L (0.66-2.22) H Uric Acid 11.0 MG/DL (2.6-7.2) H Calcium Level 6.2 MG/DL (8.5-10.1) L Phosphorus Level 1.7 MG/DL (2.5-4.9) L Magnesium Level 1.6 MG/DL (1.8-2.4) L Total Bilirubin 2.6 MG/DL (0.2-1.0) H Direct Bilirubin 2.1 MG/DL (0.0-0.3) H Gamma Glutamyl Transpeptidase 21 U/L (5-85) Aspartate Amino Transf (AST/SGOT) 100 U/L (15-37) H Alanine Aminotransferase (ALT/SGPT) 35 U/L (12-78) Alkaline Phosphatase 69 U/L (46-116) Total Creatine Kinase 1573 U/L (26-308) H Troponin I 3.167 ng/mL (0.000-0.056) C-Reactive Protein, Quantitative 30.5 mg/dL (0.00-0.90) H Pro-B-Type Natriuretic Peptide 18890 pg/mL (0-125) H Total Protein 5.5 G/DL (6.4-8.2) L Albumin 2.1 G/DL (3.4-5.0) L Globulin 3.4 g/dL Albumin/Globulin Ratio 0.6 (1.0-2.7) L Triglycerides Level 121 MG/DL (30-150) Cholesterol Level 53 MG/DL (< 200) LDL Cholesterol 18 mg/dL (<100) HDL Cholesterol 9 MG/DL (40-60) L Cholesterol/HDL Ratio 5.9 (3.3-4.4) H Lipase 43 U/L (73-393) L Thyroid Stimulating Hormone (TSH) 0.772 uiU/mL (0.358-3.740) Random Vancomycin Level 17.5 ug/mL Digoxin Level 0.5 NG/ML (0.5-2.0) Arterial Blood pH 7.334 (7.350-7.450) Arterial Blood Partial Pressure CO2 31.5 mmHg (35.0-45.0) L Arterial Blood Partial Pressure O2 101.2 mmHg (75.0-100.0) H Arterial Blood HCO3 16.4 mmol/L (22.0-26.0) *L Arterial Blood Oxygen Saturation 97.1 % (95-100) Arterial Blood Base Excess -8.4 (-2-2) L Kush Test Positive Microbiology Date/Time Source Procedure Growth Status 09/22/20 14:00 Sputum Gram Stain - Final Resulted 09/22/20 14:00 Sputum Sputum Culture Pending Resulted 09/21/20 22:02 Nasopharynx SARS-CoV-2 RdRp Gene Assay - Final Complete 09/21/20 21:15 Blood Blood Culture - Preliminary Resulted 09/21/20 21:00 Blood Blood Culture - Preliminary Resulted Objective HEAD AND NECK: Orally intubated. LUNGS: Coarse rhonchi. CARDIOVASCULAR: Irregular irregular and tachycardic S1 and S2 with no gallop. ABDOMEN: Soft. EXTREMITIES: No pitting edema. Carlos Eduardo Crespo MD Sep 23, 2020 13:13
[2020-09-23] MEDS ORDERED: Acetaminophen 650mg/20.3ml NG PRN ×2 (13:30)
[2020-09-23] MEDS ORDERED: TUBERSOL (PPD)0.1 ML IDERMAL (14:29)
[2020-09-23] MEDS ORDERED: ASCORBIC ACID500 MG ORAL (14:31)
--- NOTE | 2020-09-23 15:04 | Internal Med Progress Note ---
Subjective Physician Name Andrés Rothman Attending Physician Andrés Rothman MD Current Medications Medications (Trade) Dose Ordered Sig/Fabrizio Route PRN Reason Start Time Stop Time Status Last Admin Dose Admin Acetaminophen (Tylenol) 650 mg Q4H PRN NG Mild Pain (Pain Scale 1-3) 09/23/20 13:30 10/23/20 13:29 09/23/20 13:42 Acetaminophen (Tylenol) 650 mg Q4H PRN NG Mild Pain (Pain Scale 1-3) 09/23/20 13:30 10/23/20 13:29 Albuterol/ Ipratropium (Albuterol/ Ipratropium) 3 ml Q4H PRN HHN Shortness of Breath 09/21/20 23:45 09/26/20 23:44 Chlorhexidine Gluconate (Jennifer-Hex 2%) 1 applic DAILY@2000 TOPIC 09/22/20 20:00 12/21/20 19:59 09/22/20 20:00 Dextrose/Sodium Chloride 1,000 ml @ 200 mls/hr Q5H IV 09/22/20 11:00 10/22/20 10:59 09/23/20 11:55 Dopamine HCl/ Dextrose 250 ml @ 0 mls/hr Q24H IV 09/22/20 09:00 09/25/20 08:59 09/22/20 10:30 Haloperidol Lactate (Haldol) 5 mg Q6H PRN IM Agitation 09/21/20 23:45 11/05/20 23:44 Heparin Sodium (Porcine) (Heparin 5000 units/ml) 5,000 units EVERY 12 HOURS SUBQ 09/22/20 09:00 11/06/20 08:59 09/22/20 21:00 Iohexol (Omnipaque 350 100ml) 100 ml NOW PRN INJ Radiology Procedure 09/21/20 21:45 09/23/20 21:44 Lorazepam (Ativan 2mg/ml 1ml) 2 mg Q2H PRN IV For Anxiety 09/21/20 23:45 09/28/20 23:44 Meropenem 500 mg/ Sodium Chloride 55 ml @ 110 mls/hr Q12HR IVPB 09/22/20 10:00 09/27/20 09:59 09/23/20 08:54 Morphine Sulfate (Morphine Sulfate) 4 mg Q4H PRN IVP Severe Pain (Pain Scale 7-10) 09/21/20 23:45 09/28/20 23:44 Norepinephrine Bitartrate 16 mg/ Sodium Chloride 500 ml @ 0 mls/hr Q24H IV 09/22/20 16:00 09/25/20 15:59 09/23/20 01:50 Ondansetron HCl (Zofran) 4 mg Q6H PRN IVP Nausea & Vomiting 09/21/20 23:45 10/21/20 23:44 Pantoprazole (Protonix) 40 mg Q12HR IVP 09/22/20 21:00 10/22/20 08:59 09/23/20 08:53 Phenylephrine HCl 50 mg/Dextrose 250 ml @ 0 mls/hr Q24H IV 09/22/20 08:45 09/25/20 08:42 09/22/20 12:00 Polyethylene Glycol (Miralax) 17 gm DAILYPRN PRN ORAL Constipation 09/21/20 23:45 10/21/20 23:44 Vancomycin HCl ([facility] pharmacy to dose) 1 ea DAILY PRN MISC PER RX PROTOCOL 09/22/20 07:45 10/22/20 07:44 Vasopressin 100 units/Sodium Chloride 100 ml @ 0 mls/hr Q24H IV 09/22/20 09:00 09/25/20 08:59 09/22/20 10:07 Allergies: Coded Allergies: No Known Allergies (Unverified , 07/22/20) Subjective in ICU, intubated remained on ventilation, unable to follow commands, unresponsive, sodium: 153 decreased, presently on 2 pressors: Levophed and Vasopressin, in droplet/respiratory isolation room. Objective Last Vital Signs Date Time Temp Pulse Resp B/P (MAP) Pulse Ox O2 Delivery O2 Flow Rate FiO2 09/23/20 13:00 126 17 119/67 (84) 100 09/23/20 12:00 Mechanical Ventilator 09/23/20 12:00 99.0 09/23/20 09:50 50 09/22/20 08:00 15.0 Laboratory Tests Test 09/23/20 04:00 09/23/20 08:14 09/23/20 08:45 White Blood Count 10.4 K/UL (4.8-10.8) # Red Blood Count 3.32 M/UL (4.70-6.10) L Hemoglobin 10.5 G/DL (14.2-18.0) L Hematocrit 30.5 % (42.0-52.0) L Mean Corpuscular Volume 92 FL (80-99) Mean Corpuscular Hemoglobin 31.6 PG (27.0-31.0) H Mean Corpuscular Hemoglobin Concent 34.4 G/DL (32.0-36.0) Red Cell Distribution Width 14.7 % (11.6-14.8) Platelet Count 58 K/UL (150-450) L Mean Platelet Volume 10.8 FL (6.5-10.1) H Neutrophils (%) (Auto) % (45.0-75.0) Lymphocytes (%) (Auto) % (20.0-45.0) Monocytes (%) (Auto) % (1.0-10.0) Eosinophils (%) (Auto) % (0.0-3.0) Basophils (%) (Auto) % (0.0-2.0) Differential Total Cells Counted 100 Neutrophils % (Manual) 76 % (45-75) H Lymphocytes % (Manual) 9 % (20-45) L Monocytes % (Manual) 9 % (1-10) Eosinophils % (Manual) 0 % (0-3) Basophils % (Manual) 0 % (0-2) Band Neutrophils 6 % (0-8) Platelet Estimate Decreased L Platelet Morphology Normal Hypochromasia 1+ Anisocytosis 1+ Urine Eosinophils None seen (NONE SEEN) Sodium Level 153 MMOL/L (136-145) #H Potassium Level 3.8 MMOL/L (3.5-5.1) Chloride Level 122 MMOL/L (98-107) H Carbon Dioxide Level 17 MMOL/L (21-32) L Anion Gap 14 mmol/L (5-15) Blood Urea Nitrogen 69 mg/dL (7-18) H Creatinine 5.2 MG/DL (0.55-1.30) H Estimat Glomerular Filtration Rate 10.9 mL/min (>60) Glucose Level 213 MG/DL (74-106) H Lactic Acid Level 3.20 mmol/L (0.4-2.0) H 3.00 mmol/L (0.66-2.22) H Uric Acid 11.0 MG/DL (2.6-7.2) H Calcium Level 6.2 MG/DL (8.5-10.1) L Phosphorus Level 1.7 MG/DL (2.5-4.9) L Magnesium Level 1.6 MG/DL (1.8-2.4) L Total Bilirubin 2.6 MG/DL (0.2-1.0) H Direct Bilirubin 2.1 MG/DL (0.0-0.3) H Gamma Glutamyl Transpeptidase 21 U/L (5-85) Aspartate Amino Transf (AST/SGOT) 100 U/L (15-37) H Alanine Aminotransferase (ALT/SGPT) 35 U/L (12-78) Alkaline Phosphatase 69 U/L (46-116) Total Creatine Kinase 1573 U/L (26-308) H Troponin I 3.167 ng/mL (0.000-0.056) C-Reactive Protein, Quantitative 30.5 mg/dL (0.00-0.90) H Pro-B-Type Natriuretic Peptide 30668 pg/mL (0-125) H Total Protein 5.5 G/DL (6.4-8.2) L Albumin 2.1 G/DL (3.4-5.0) L Globulin 3.4 g/dL Albumin/Globulin Ratio 0.6 (1.0-2.7) L Triglycerides Level 121 MG/DL (30-150) Cholesterol Level 53 MG/DL (< 200) LDL Cholesterol 18 mg/dL (<100) HDL Cholesterol 9 MG/DL (40-60) L Cholesterol/HDL Ratio 5.9 (3.3-4.4) H Lipase 43 U/L (73-393) L Thyroid Stimulating Hormone (TSH) 0.772 uiU/mL (0.358-3.740) Random Vancomycin Level 17.5 ug/mL Digoxin Level 0.5 NG/ML (0.5-2.0) Arterial Blood pH 7.334 (7.350-7.450) Arterial Blood Partial Pressure CO2 31.5 mmHg (35.0-45.0) L Arterial Blood Partial Pressure O2 101.2 mmHg (75.0-100.0) H Arterial Blood HCO3 16.4 mmol/L (22.0-26.0) *L Arterial Blood Oxygen Saturation 97.1 % (95-100) Arterial Blood Base Excess -8.4 (-2-2) L Kush Test Positive Microbiology Date/Time Source Procedure Growth Status 09/22/20 14:00 Sputum Gram Stain - Final Resulted 09/22/20 14:00 Sputum Sputum Culture Pending Resulted 09/21/20 22:02 Nasopharynx SARS-CoV-2 RdRp Gene Assay - Final Complete 09/21/20 21:15 Blood Blood Culture - Preliminary Resulted 09/21/20 21:00 Blood Blood Culture - Preliminary Resulted Intake and Output 09/22/20 09/23/20 19:00 07:00 Intake Total 3624.48284 ml 2640.8250 ml Output Total 110 ml 215 ml Balance 3514.18875 ml 2425.8250 ml Intake Free Water 100 ml IV Total 3624.35666 ml 2540.8250 ml Output Urine Total 110 ml 215 ml # Bowel Movements 2 Objective General: remain on ventilation, unresponsive, cannot follow commands. HEENT: NCAT, sclera anicteric, PERRL, ET Tube. Neck: Supple, no significant jugular venous distention, Lungs: mechanical breath sounds, decreased air at the bases, no wheezes. Heart: Irregular rate and tachycardia, normal S1/S2, no murmurs, pacemaker at left side chest wall. Abdomen: soft, nontender, nondistended. Normoactive bowel sounds. : Whiting catheter. Extremities: No Cyanosis , clubbing or edema. Neuro: limited secondary to patient's status, unable to follow commands. Assessment/Plan Assessment/Plan ASSESSMENT: This is a 75-year-old white male with: 1. Pneumonia. 2. Acute hypoxemic Respiratory failure. 3. Septic shock. 4. Non-ST elevated myocardial infarction. 5. Hypertension. 6. Benign prostatic hypertrophy. 7. Alzheimer's dementia. 8. Depression. 9. status post cardiopulmonary arrest / PEA arrest (09/22/2020) 10. Atrial fibrillation with rapid ventricular rate. 11. Acute renal failure on chronic renal insufficiency. 12. hypernatremia. 13. Multiorgan failure. 14. Acute E. coli UTI. 15. MRSA sepsis/bacteremia. 16. NSTEMI 17. sick sinus syndrome status post a pacemaker on 08/27/2020. TREATMENT: 1. Pneumonia. Abx: meropenem and vancomycin. An Infectious Disease consultation has been obtained with Dr. Aviles. Follow recommendations of Infectious Disease. A Pulmonary consultation has been obtained with Dr. Jaclyn Byrne. 2. Septic shock. The patient is currently on vasopressin. 3. Non-ST elevated myocardial infarction. A Cardiology consultation has been obtained with Dr. Carlos Eduardo Crespo. Follow recommendations of Cardiology. 4. Hypertension. The patient is currently hypotensive. Hold antihypertensive medication. 5. Benign prostatic hypertrophy. Continue Flomax as above. 6. Alzheimer's dementia. 7. History of schizophrenia/depression. 8. Pacemaker in situ. on Amiodarone drip Pressors: Levophed and vasopressin CODE STATUS: Full code. DVT prophylaxis: heparin subcu. Andrés Rothman MD Sep 23, 2020 15:04
--- NOTE | 2020-09-23 16:00 | NUR ---
NURSE NOTES: Vasopressin drip held. Latest blood pressure of 119/61.
--- NOTE | 2020-09-23 16:02 | NUR ---
NURSE NOTES: fingerprint technician at bedside. Patient is for abdominal ultrasound. Patient kept NPO.
[2020-09-23] MEDS ORDERED: Digoxin 0.5mg/2ml Inj IVP SCH (16:30)
--- NOTE | 2020-09-23 16:30 | NUR ---
NURSE NOTES: Shingle Catcher at bedside. Drawing specimen for blood culture.
--- NOTE | 2020-09-23 16:52 | Diagnostic Imaging Report ---
Indication: Abnormal renal function tests and liver function tests Technique: Sullivan-scale and duplex images of the upper abdomen were obtained Comparison: none Findings: Gallbladder demonstrates sludge. No gallstones. No gallbladder wall thickening or pericholecystic fluid. Sonographic Mcclendon's sign is negative. Common bile duct measures 4 mm in diameter. No intrahepatic biliary ductal dilatation. Liver demonstrates normal echogenicity, no focal abnormality. Portal vein and hepatic veins are patent. Pancreas is unremarkable. The spleen is enlarged, measuring 15.7 cm long axis dimension. Left kidney measures 11.9 cm in length. Right kidney measures cm length. Both kidneys demonstrate normal echogenicity. There is no hydronephrosis. The left kidney demonstrates a small parapelvic cyst. No focal right renal abnormality. . Abdominal aorta is partially obscured by bowel gas, visualized portions are non-aneurysmal . Impression: Gallbladder sludge. Negative for gallstones or dilated bile ducts Splenomegaly Incidental finding left renal parapelvic cyst Note inability to visualize portions of the abdominal aorta
--- NOTE | 2020-09-23 17:29 | Pulmonolgy Critical Care Note ---
Critical Care - Asmt/Plan Problems: (1) Multiorgan failure (2) Septic shock (3) Acute respiratory failure (4) Rapid atrial fibrillation (5) ARF (acute renal failure) (6) Pulseless ventricular tachycardia (7) Cardiopulmonary arrest (8) Schizoaffective disorder Respiratory: monitor respiratory rate, adjust FIO2, CXR, ABG Cardiac: continue pressors, continue to monitor HR/BP Renal: F/U I&O Infectious Disease: check cultures, continue antibiotics Gastrointestinal: continue feedings/current rate Endocrine: monitor blood sugar Hematologic: transfuse if hgb<8.5 Neurologic: PRN Ativan, PRN Morphine, keep patient comfortable Disposition: keep in ICU Time Spent (Minutes): 40 Notes Reviewed: juvenile court liaison, cardio, ID Critical Care - Objective Last 24 Hour Vital Signs Date Time Temp Pulse Resp B/P (MAP) Pulse Ox O2 Delivery O2 Flow Rate FiO2 09/23/20 16:38 140 09/23/20 16:37 117/63 09/23/20 16:00 50 09/23/20 16:00 97.8 147 17 119/61 (80) 100 09/23/20 16:00 119/61 09/23/20 16:00 Mechanical Ventilator 09/23/20 15:26 120 09/23/20 15:14 131 17 50 09/23/20 15:00 149 17 99/63 (75) 100 09/23/20 15:00 99/63 09/23/20 14:45 154 17 106/66 (79) 100 09/23/20 14:30 154 17 93/54 (67) 100 09/23/20 14:15 135 17 115/68 (84) 100 09/23/20 14:00 139 17 97/61 (73) 100 09/23/20 14:00 97/61 09/23/20 13:45 138 16 120/60 (80) 100 09/23/20 13:30 133 16 122/67 (85) 100 09/23/20 13:15 128 17 119/64 (82) 100 09/23/20 13:00 126 17 119/67 (84) 100 09/23/20 13:00 119/67 09/23/20 12:45 126 16 112/67 (82) 100 09/23/20 12:30 126 17 118/67 (84) 100 09/23/20 12:15 125 16 119/73 (88) 100 09/23/20 12:00 50 09/23/20 12:00 Mechanical Ventilator 09/23/20 12:00 126/73 09/23/20 12:00 99.0 125 16 126/73 (90) 100 09/23/20 11:55 129 09/23/20 11:45 126 16 119/71 (87) 100 09/23/20 11:30 125 16 126/77 (93) 100 09/23/20 11:27 120 09/23/20 11:15 127 16 120/77 (91) 100 09/23/20 11:13 130 20 50 09/23/20 11:00 129 16 123/74 (90) 100 09/23/20 11:00 123/74 09/23/20 10:30 127 17 112/73 (86) 100 09/23/20 10:00 111/64 09/23/20 10:00 127 17 111/64 (80) 100 09/23/20 09:50 50 09/23/20 09:30 126 17 112/70 (84) 100 09/23/20 09:00 116/64 09/23/20 09:00 125 18 116/64 (81) 100 09/23/20 08:30 125 20 106/66 (79) 100 09/23/20 08:23 123 09/23/20 08:15 125 19 113/63 (80) 100 09/23/20 08:00 60 09/23/20 08:00 99.0 123 21 110/68 (82) 100 09/23/20 08:00 110/68 09/23/20 08:00 Mechanical Ventilator 09/23/20 07:30 123 24 106/68 (81) 100 09/23/20 07:15 123 22 107/68 (81) 100 09/23/20 07:11 130 20 50 09/23/20 07:00 122 22 108/66 (80) 100 09/23/20 07:00 108/66 09/23/20 06:03 124 26 09/23/20 06:00 91/59 09/23/20 06:00 122 27 97/65 (76) 100 09/23/20 05:30 123 26 96/59 (71) 100 12/24/20 05:15 123 26 92/66 (75) 100 09/23/20 05:00 149 22 89/67 (74) 100 09/23/20 05:00 103/59 09/23/20 04:59 145 22 143/86 (105) 100 09/23/20 04:45 124 22 102/66 (78) 100 09/23/20 04:30 123 22 106/71 (83) 100 09/23/20 04:15 125 22 93/64 (74) 100 09/23/20 04:00 99.8 124 22 94/61 (72) 100 09/23/20 04:00 132 09/23/20 04:00 Mechanical Ventilator 09/23/20 04:00 122/70 09/23/20 04:00 60 09/23/20 04:00 60 09/23/20 03:53 126 22 106/71 (83) 100 09/23/20 03:45 127 22 92/65 (74) 100 09/23/20 03:30 127 22 120/80 (93) 100 09/23/20 03:00 130 22 129/78 (95) 100 09/23/20 03:00 132/66 09/23/20 03:00 124 22 100 09/23/20 02:45 131 22 130/80 (97) 100 09/23/20 02:30 135 22 127/77 (94) 100 09/23/20 02:15 133 21 118/73 (88) 100 09/23/20 02:05 123/59 09/23/20 02:00 131 22 111/76 (88) 100 09/23/20 02:00 125/59 09/23/20 01:50 135/74 09/23/20 01:30 129 23 143/95 (111) 100 09/23/20 01:00 138 22 135/74 (94) 100 09/23/20 01:00 135/74 09/23/20 00:30 138 22 109/68 (82) 100 09/23/20 00:00 80 09/23/20 00:00 132 09/23/20 00:00 Mechanical Ventilator 09/23/20 00:00 125/73 09/23/20 00:00 98.5 135 22 141/102 (115) 100 09/22/20 23:45 132 22 118/82 (94) 100 09/22/20 23:30 135 22 126/87 (100) 100 09/22/20 23:13 138 22 100 09/22/20 23:00 134 22 116/67 (83) 96 09/22/20 23:00 121/90 09/22/20 22:45 145 22 121/70 (87) 100 09/22/20 22:30 137 22 121/58 (79) 100 09/22/20 22:15 136 21 131/62 (85) 98 09/22/20 22:00 132 22 141/86 (104) 99 09/22/20 22:00 131/62 09/22/20 21:45 130 21 139/79 (99) 100 09/22/20 21:30 130 21 123/62 (82) 100 09/22/20 21:15 135 26 125/82 (96) 99 09/22/20 21:00 171 26 133/83 (100) 99 09/22/20 21:00 125/82 09/22/20 20:45 137 30 119/65 (83) 99 09/22/20 20:30 132 36 154/116 (129) 97 09/22/20 20:15 135 33 90/77 (81) 96 09/22/20 20:08 152 32 88/59 (69) 100 09/22/20 20:05 147 30 47/28 (34) 100 09/22/20 20:00 Mechanical Ventilator 09/22/20 20:00 47/28 09/22/20 20:00 135 09/22/20 20:00 90 09/22/20 20:00 99.0 150 32 75/58 (64) 100 09/22/20 19:49 161 21 76/52 (60) 99 09/22/20 19:45 148 22 101/68 (79) 100 09/22/20 19:41 151 25 71/32 (45) 100 09/22/20 19:40 148 22 85/49 (61) 100 09/22/20 19:38 141 24 71/47 (55) 100 09/22/20 19:36 146 18 88/55 (66) 100 09/22/20 19:30 87/49 09/22/20 19:30 147 24 82/52 (62) 100 09/22/20 19:15 124 24 122/64 (83) 100 09/22/20 19:15 122/64 09/22/20 19:00 141 25 114/65 (81) 100 09/22/20 19:00 114/65 09/22/20 18:45 117 27 127/69 (88) 100 09/22/20 18:39 110 26 100 09/22/20 18:30 124 27 142/74 (96) 99 09/22/20 18:23 100 09/22/20 18:15 134 26 127/74 (91) 100 09/22/20 18:00 144 23 173/93 (119) 100 09/22/20 18:00 173/93 09/22/20 17:45 141 27 174/105 (128) 100 09/22/20 17:30 143 24 164/84 (110) 100 Status: sedated Condition: critical HEENT: atraumatic Heart: HR/BP stable, regular Abdomen: soft, active bowel sounds Extremities: edema Micro: Microbiology Date/Time Source Procedure Growth Status 09/22/20 14:00 Sputum Gram Stain - Final Resulted 09/22/20 14:00 Sputum Sputum Culture Pending Resulted 09/21/20 22:02 Nasopharynx SARS-CoV-2 RdRp Gene Assay - Final Complete 09/21/20 21:15 Blood Blood Culture - Preliminary Staphylococcus Aureus Resulted 09/21/20 21:00 Blood Blood Culture - Preliminary Staphylococcus Aureus Resulted Critical Care - Subjective ROS Limited/Unobtainable: Yes Condition: critical FI02: 50 Vent Support Breath Rate: 16 Vent Support Mode: AC Vent Tidal Volume: 650 Sputum Amount: Scant PEEP: 8.0 PIP: 23 I&O: Intake and Output 09/22/20 09/23/20 19:00 07:00 Intake Total 3624.73588 ml 2640.8250 ml Output Total 110 ml 215 ml Balance 3514.39196 ml 2425.8250 ml Intake Free Water 100 ml IV Total 3624.73961 ml 2540.8250 ml Output Urine Total 110 ml 215 ml # Bowel Movements 2 ET-Tube: 7.5 ET Position: 25 Labs: Laboratory Tests Test 09/23/20 04:00 09/23/20 08:14 09/23/20 08:45 White Blood Count 10.4 K/UL (4.8-10.8) # Red Blood Count 3.32 M/UL (4.70-6.10) L Hemoglobin 10.5 G/DL (14.2-18.0) L Hematocrit 30.5 % (42.0-52.0) L Mean Corpuscular Volume 92 FL (80-99) Mean Corpuscular Hemoglobin 31.6 PG (27.0-31.0) H Mean Corpuscular Hemoglobin Concent 34.4 G/DL (32.0-36.0) Red Cell Distribution Width 14.7 % (11.6-14.8) Platelet Count 58 K/UL (150-450) L Mean Platelet Volume 10.8 FL (6.5-10.1) H Neutrophils (%) (Auto) % (45.0-75.0) Lymphocytes (%) (Auto) % (20.0-45.0) Monocytes (%) (Auto) % (1.0-10.0) Eosinophils (%) (Auto) % (0.0-3.0) Basophils (%) (Auto) % (0.0-2.0) Differential Total Cells Counted 100 Neutrophils % (Manual) 76 % (45-75) H Lymphocytes % (Manual) 9 % (20-45) L Monocytes % (Manual) 9 % (1-10) Eosinophils % (Manual) 0 % (0-3) Basophils % (Manual) 0 % (0-2) Band Neutrophils 6 % (0-8) Platelet Estimate Decreased L Platelet Morphology Normal Hypochromasia 1+ Anisocytosis 1+ Urine Eosinophils None seen (NONE SEEN) Sodium Level 153 MMOL/L (136-145) #H Potassium Level 3.8 MMOL/L (3.5-5.1) Chloride Level 122 MMOL/L (98-107) H Carbon Dioxide Level 17 MMOL/L (21-32) L Anion Gap 14 mmol/L (5-15) Blood Urea Nitrogen 69 mg/dL (7-18) H Creatinine 5.2 MG/DL (0.55-1.30) H Estimat Glomerular Filtration Rate 10.9 mL/min (>60) Glucose Level 213 MG/DL (74-106) H Lactic Acid Level 3.20 mmol/L (0.4-2.0) H 3.00 mmol/L (0.66-2.22) H Uric Acid 11.0 MG/DL (2.6-7.2) H Calcium Level 6.2 MG/DL (8.5-10.1) L Phosphorus Level 1.7 MG/DL (2.5-4.9) L Magnesium Level 1.6 MG/DL (1.8-2.4) L Total Bilirubin 2.6 MG/DL (0.2-1.0) H Direct Bilirubin 2.1 MG/DL (0.0-0.3) H Gamma Glutamyl Transpeptidase 21 U/L (5-85) Aspartate Amino Transf (AST/SGOT) 100 U/L (15-37) H Alanine Aminotransferase (ALT/SGPT) 35 U/L (12-78) Alkaline Phosphatase 69 U/L (46-116) Total Creatine Kinase 1573 U/L (26-308) H Troponin I 3.167 ng/mL (0.000-0.056) C-Reactive Protein, Quantitative 30.5 mg/dL (0.00-0.90) H Pro-B-Type Natriuretic Peptide 13870 pg/mL (0-125) H Total Protein 5.5 G/DL (6.4-8.2) L Albumin 2.1 G/DL (3.4-5.0) L Globulin 3.4 g/dL Albumin/Globulin Ratio 0.6 (1.0-2.7) L Triglycerides Level 121 MG/DL (30-150) Cholesterol Level 53 MG/DL (< 200) LDL Cholesterol 18 mg/dL (<100) HDL Cholesterol 9 MG/DL (40-60) L Cholesterol/HDL Ratio 5.9 (3.3-4.4) H Lipase 43 U/L (73-393) L Thyroid Stimulating Hormone (TSH) 0.772 uiU/mL (0.358-3.740) Random Vancomycin Level 17.5 ug/mL Digoxin Level 0.5 NG/ML (0.5-2.0) Arterial Blood pH 7.334 (7.350-7.450) Arterial Blood Partial Pressure CO2 31.5 mmHg (35.0-45.0) L Arterial Blood Partial Pressure O2 101.2 mmHg (75.0-100.0) H Arterial Blood HCO3 16.4 mmol/L (22.0-26.0) *L Arterial Blood Oxygen Saturation 97.1 % (95-100) Arterial Blood Base Excess -8.4 (-2-2) L Kush Test Positive Jaclyn Byrne MD Sep 23, 2020 17:29
--- NOTE | 2020-09-23 19:15 | NUR ---
NURSE HAND-OFF REPORT: Latest Vital Signs: Temperature 97.8 , Pulse 134 , B/P 145 /82 , Respiratory Rate 19 , O2 SAT 100 , Mechanical Ventilator, O2 Flow Rate . Vital Sign Comment: On Levophed drip EKG Rhythm: Atrial Fibrillation Rhythm change?: N Latest Robertson Fall Score: 75 Fall Risk: High Risk Safety Measures: Call light Within Reach, Bed Alarm Zone 1, Side Rails Side Rails x2, Bed position Low and Locked. Fall Precautions: Yellow Socks Yellow Gown Door Sign Patient Fall Education Report given to Sachin Chew RN.
--- NOTE | 2020-09-23 19:30 | NUR ---
NURSE NOTES: Received report from KRYSTYNA Valdez. Pt is resting on the bed and obtunded. Pt has ETT and orally intubated. Vent dependent and setting with AC: 16, T:650, P : 5, FiO2 50% and SaO2 99-100% noted. given suction and oral care. on cardiac specialist with A-fib and HR: 120-140's. Pt has Lt. chest pacemaker. No sign of pain by FLACC scale. Noted BT: 98.3F. Pt has OGT and in placed. On NPO now but will start OGT feeding as ordered. Pt has Whiting cath and patent and drainage well. Dressing is clean and dry on wound area. On P-200 mattress for wound management. Iv site intact and no sign of infiltration noted. Pt has Rt. Femoral TLC and dressing is inact. On running with Levophed drip @ 12mcg/min and D51/4NS @ 200cc/hr. Vasopressin drip off now. Placed fall precaution. On proper isolation for PUI for COVID-19. Will continue to care plan.
[2020-09-23] MEDS: Dyna-Hex 2% Top Sol 2oz TOPIC SCH (19:48)
--- NOTE | 2020-09-23 20:00 | NUR ---
NURSE NOTES: Noted BP : 130/77mmHg and GR: 133's. Decrease Levophed gtt @ 8mcg/min. Will continue to monitor.
--- NOTE | 2020-09-23 21:00 | NUR ---
NURSE NOTES: Noted 10cc residual from OGT. Started OGT feeding @ 10cc/hr. Will continue to monitor any change of condition.
--- NOTE | 2020-09-23 22:00 | NUR ---
NURSE NOTES: SaO2 99-100% with current Vent setting. Given suction and oral care. changed position. on ledger poster with A-fib. On running with Levophed Drip @ 8mcg/min. Will continue to monitor any change of condition.
[2020-09-24] VITALS (62 sets, daily range): BP systolic 87–160; BP diastolic 53–88
--- NOTE | 2020-09-24 | NUR ---
NURSE NOTES: Pt is sleeping on the bed. No sign of pain by FLACC scale. No fever. SaO2 99-100% with current Vent setting. Tolerated well with current OGT feeding. Noted 100cc/hr urine output. On Levophed drip @ 8mcg/min as titrate. Placed fall precaution. Will continue to monitor any change of condition.
--- NOTE | 2020-09-24 02:00 | NUR ---
NURSE NOTES: SaO2 99-100% with Vent. Given suction and oral care. Turn and reposition. On running with Levophed drip @ 8mcg/min. Placed fall precaution. will continue to monitor any change of condition.
[2020-09-24] MEDS: D5 1/4NS 1000ml 1,000 ML IV SCH ×5 (02:17→23:58)
--- NOTE | 2020-09-24 03:15 | NUR ---
NURSE NOTES: Noted BP : 89/55mmHg. Increase Levophed drip @ 10mcg/min. Will continue to monitor any change of condition.
[2020-09-24] MEDS: LORazepam Inj 2mg/ml 1ml IV PRN ×4 (03:37→23:48)
--- NOTE | 2020-09-24 04:00 | NUR ---
NURSE NOTES: Morning care was done. Cleaned Pt and applied lotion and cream. changed wound dressing and Rt. TLC dressing. Noted HR: 140-170's with A-fib. No fever. Already given Ativan Prn medication as ordered for agitation. Left message to Dr. Crespo and awaiting call back. collected urine sample. Will continue to monitor any changed position.
--- NOTE | 2020-09-24 05:00 | NUR ---
NURSE NOTES: Pt is sleeping on the bed. On monitoring analyst with A-fib and HR: 144's. On running with Levophed drip 2 10mcg/min as titrated. Will continue to monitor.
[2020-09-24 06:01] LABS: HEMATOCRIT 29.1 % (42.0-52.0); HEMOGLOBIN 9.5 G/DL (14.2-18.0); MEAN CORPUSCULAR VOLUME 96 FL (80-99); PLATELET COUNT 47 K/UL (150-450); RED BLOOD COUNT 3.04 M/UL (4.70-6.10); RED CELL DISTRIBUTION WIDTH 14.6 % (11.6-14.8); WHITE BLOOD COUNT 7.9 K/UL (4.8-10.8)
--- NOTE | 2020-09-24 06:30 | NUR ---
NURSE NOTES: Cherie Tobin visited and assessed Pt and new order received. Carried out. Still noted A-fib with HR: 140-160's. Will continue to monitor any change of condition.
[2020-09-24 06:46] LABS: AMYLASE 15 U/L (25-115)
[2020-09-24 07:14] LABS: CREATINE KINASE 1088 U/L (26-308)
--- NOTE | 2020-09-24 07:18 | Cardiac Electrophysiology PN ---
Assessment/Plan Assessment/Plan 1. Atrial fib with RVR and Episode of pulseless electrical activity after ventricular tachycardia. The patient is already on Levophed 10 mcg and cant add Cardizem drip. Add Amiodrip per pharmacy and Dig 0.125 po daily. Dig level today is 1.0 2. NSTEMI 3.0 could be due to renal failure as well as septic shock. 3. Septic and hypovolemic shock. On iv fluid and Levophed and Abx 4. Respiratory failure, on the ventilator, 100% FiO2 on a PEEP of 15 5. Severe azotemia with sodium of 170 and very high BUN and creatinine. Cr still 5.2 The patient is on D5 and quarter-normal saline at 200 mL/hour per Dr. Mata. LISA RN Subjective Subjective In ICU on the vent on Levo 10 mcg and off Vasopressin. Got Dig 0.5 for atrial fib with RVR. HR still 160-170s in atrial fib. Objective Last 24 Hour Vital Signs Date Time Temp Pulse Resp B/P (MAP) Pulse Ox O2 Delivery O2 Flow Rate FiO2 09/24/20 07:00 148 20 92/58 (69) 100 09/24/20 07:00 92/58 09/24/20 06:30 148 26 09/24/20 06:30 148 26 104/62 (76) 100 09/24/20 06:00 151 20 108/61 (77) 100 09/24/20 06:00 108/61 09/24/20 05:30 146 19 94/56 (69) 100 09/24/20 05:00 144 20 100/56 (71) 100 09/24/20 05:00 100/56 09/24/20 04:30 143 20 108/73 (85) 100 09/24/20 04:07 150 24 90/60 100 09/24/20 04:00 50 09/24/20 04:00 98.2 146 22 90/60 (70) 100 09/24/20 04:00 90/60 09/24/20 04:00 154 09/24/20 04:00 Mechanical Ventilator 09/24/20 03:37 137 24 99/62 100 09/24/20 03:30 146 22 99/62 (74) 100 09/24/20 03:15 89/55 09/24/20 03:15 144 26 89/55 (66) 100 09/24/20 03:06 143 25 50 09/24/20 03:00 104/53 09/24/20 03:00 143 23 104/53 (70) 100 09/24/20 02:30 140 24 96/62 (73) 100 09/24/20 02:00 136 22 118/63 (81) 100 09/24/20 02:00 118/63 09/24/20 01:30 133 20 110/61 (77) 100 09/24/20 01:00 133 22 102/68 (79) 100 09/24/20 01:00 102/68 09/24/20 00:30 132 21 114/65 (81) 100 09/24/20 00:00 132 20 114/67 (83) 100 09/24/20 00:00 Mechanical Ventilator 09/24/20 00:00 50 09/24/20 00:00 114/67 09/24/20 00:00 140 09/23/20 23:30 134 20 121/69 (86) 100 09/23/20 23:04 144 26 50 09/23/20 23:00 129 20 114/66 (82) 100 09/23/20 23:00 114/66 09/23/20 22:30 129 19 118/72 (87) 100 09/23/20 22:00 131 20 122/69 (86) 100 09/23/20 22:00 122/69 09/23/20 21:30 134 22 119/71 (87) 98 09/23/20 21:00 112/69 09/23/20 21:00 131 20 112/69 (83) 98 09/23/20 20:30 133 21 104/61 (75) 100 09/23/20 20:00 50 09/23/20 20:00 Mechanical Ventilator 09/23/20 20:00 130/77 09/23/20 20:00 98.3 133 21 130/77 (94) 100 09/23/20 20:00 130 09/23/20 19:07 125 18 50 09/23/20 19:00 134 19 145/82 (103) 100 09/23/20 19:00 145/82 09/23/20 18:30 135 19 135/82 (99) 99 09/23/20 18:00 136/76 09/23/20 18:00 136 20 136/76 (96) 97 09/23/20 17:30 131 19 127/66 (86) 98 09/23/20 17:00 127/66 09/23/20 17:00 131 17 127/66 (86) 100 09/23/20 16:38 140 09/23/20 16:37 117/63 09/23/20 16:00 50 09/23/20 16:00 97.8 147 17 119/61 (80) 100 09/23/20 16:00 119/61 09/23/20 16:00 Mechanical Ventilator 09/23/20 15:26 120 09/23/20 15:14 131 17 50 09/23/20 15:00 149 17 99/63 (75) 100 09/23/20 15:00 99/63 09/23/20 14:45 154 17 106/66 (79) 100 09/23/20 14:30 154 17 93/54 (67) 100 09/23/20 14:15 135 17 115/68 (84) 100 09/23/20 14:00 139 17 97/61 (73) 100 09/23/20 14:00 97/61 09/23/20 13:45 138 16 120/60 (80) 100 09/23/20 13:30 133 16 122/67 (85) 100 09/23/20 13:15 128 17 119/64 (82) 100 09/23/20 13:00 126 17 119/67 (84) 100 09/23/20 13:00 119/67 09/23/20 12:45 126 16 112/67 (82) 100 09/23/20 12:30 126 17 118/67 (84) 100 09/23/20 12:15 125 16 119/73 (88) 100 09/23/20 12:00 50 09/23/20 12:00 Mechanical Ventilator 09/23/20 12:00 126/73 09/23/20 12:00 99.0 125 16 126/73 (90) 100 09/23/20 11:55 129 09/23/20 11:45 126 16 119/71 (87) 100 09/23/20 11:30 125 16 126/77 (93) 100 09/23/20 11:27 120 09/23/20 11:15 127 16 120/77 (91) 100 09/23/20 11:13 130 20 50 09/23/20 11:00 129 16 123/74 (90) 100 09/23/20 11:00 123/74 09/23/20 10:30 127 17 112/73 (86) 100 09/23/20 10:00 111/64 09/23/20 10:00 127 17 111/64 (80) 100 09/23/20 09:50 50 09/23/20 09:30 126 17 112/70 (84) 100 09/23/20 09:00 116/64 09/23/20 09:00 125 18 116/64 (81) 100 09/23/20 08:30 125 20 106/66 (79) 100 09/23/20 08:23 123 09/23/20 08:15 125 19 113/63 (80) 100 09/23/20 08:00 60 09/23/20 08:00 99.0 123 21 110/68 (82) 100 09/23/20 08:00 110/68 09/23/20 08:00 Mechanical Ventilator 09/23/20 07:30 123 24 106/68 (81) 100 Intake and Output 09/23/20 09/24/20 19:00 07:00 Intake Total 2952.290 ml 2752.56 ml Output Total 405 ml 820 ml Balance 2547.290 ml 1932.56 ml Intake Free Water 200 ml 10 ml IV Total 2752.290 ml 2582.56 ml Tube Feeding 160 ml Output Urine Total 405 ml 820 ml # Bowel Movements 2 Laboratory Tests Test 09/23/20 08:14 09/23/20 08:45 09/24/20 03:30 09/24/20 04:20 Arterial Blood pH 7.334 (7.350-7.450) Arterial Blood Partial Pressure CO2 31.5 mmHg (35.0-45.0) L Arterial Blood Partial Pressure O2 101.2 mmHg (75.0-100.0) H Arterial Blood HCO3 16.4 mmol/L (22.0-26.0) *L Arterial Blood Oxygen Saturation 97.1 % (95-100) Arterial Blood Base Excess -8.4 (-2-2) L Kush Test Positive Lactic Acid Level 3.00 mmol/L (0.66-2.22) H 1.80 mmol/L (0.4-2.0) Urine Eosinophils Pending White Blood Count 7.9 K/UL (4.8-10.8) Red Blood Count 3.04 M/UL (4.70-6.10) L Hemoglobin 9.5 G/DL (14.2-18.0) L Hematocrit 29.1 % (42.0-52.0) L Mean Corpuscular Volume 96 FL (80-99) Mean Corpuscular Hemoglobin 31.4 PG (27.0-31.0) H Mean Corpuscular Hemoglobin Concent 32.8 G/DL (32.0-36.0) Red Cell Distribution Width 14.6 % (11.6-14.8) Platelet Count 47 K/UL (150-450) L Mean Platelet Volume 11.5 FL (6.5-10.1) H Neutrophils (%) (Auto) % (45.0-75.0) Lymphocytes (%) (Auto) % (20.0-45.0) Monocytes (%) (Auto) % (1.0-10.0) Eosinophils (%) (Auto) % (0.0-3.0) Basophils (%) (Auto) % (0.0-2.0) Neutrophils % (Manual) Pending Lymphocytes % (Manual) Pending Platelet Estimate Pending Platelet Morphology Pending Sodium Level Pending Potassium Level Pending Chloride Level Pending Carbon Dioxide Level Pending Blood Urea Nitrogen Pending Creatinine Pending Estimat Glomerular Filtration Rate Pending Glucose Level Pending Calcium Level Pending Phosphorus Level Pending Magnesium Level Pending Total Bilirubin Pending Aspartate Amino Transf (AST/SGOT) Pending Alanine Aminotransferase (ALT/SGPT) Pending Alkaline Phosphatase Pending Total Creatine Kinase Pending Total Protein Pending Albumin Pending Globulin Pending Amylase Level 15 U/L (25-115) L Lipase 130 U/L (73-393) Digoxin Level 1.0 NG/ML (0.5-2.0) Microbiology Date/Time Source Procedure Growth Status 09/22/20 14:00 Sputum Gram Stain - Final Resulted 09/22/20 14:00 Sputum Culture - Preliminary Staphylococcus Aureus Resulted 09/22/20 05:55 Rectum VRE Culture - Final NO VANCOMYCIN RESISTANT ENTEROCOCCUS ... Complete 09/22/20 05:55 Nasal Nares MRSA Culture - Final Staphylococcus Aureus - Mrsa Complete 09/21/20 22:02 Nasopharynx SARS-CoV-2 RdRp Gene Assay - Final Complete 09/21/20 21:30 Urine,Clean Catch Urine Culture - Preliminary Gram Negative Jacob Resulted 09/21/20 21:15 Blood Blood Culture - Preliminary Staphylococcus Aureus Resulted 09/21/20 21:00 Blood Blood Culture - Preliminary Staphylococcus Aureus Resulted Objective HEAD AND NECK: Orally intubated. LUNGS: Coarse rhonchi. CARDIOVASCULAR: Irregular irregular and tachycardic S1 and S2 with no gallop. ABDOMEN: Soft. EXTREMITIES: No pitting edema. Carlos Eduardo Crespo MD Sep 24, 2020 07:18
[2020-09-24] MEDS: Amiodarone 900 MG in D5W 500ml 482 ML IV SCH (07:24)
--- NOTE | 2020-09-24 07:24 | NUR ---
NURSE NOTES: Started amiodarone drip 1mg/min for Atrial fib. Will continue to monitor patient's heart rate in panel monitor.
--- NOTE | 2020-09-24 07:30 | NUR ---
NURSE HAND-OFF REPORT: Latest Vital Signs: Temperature 98.2 , Pulse 147 , B/P 92 /58 , Respiratory Rate 29 , O2 SAT 100 , Mechanical Ventilator, O2 Flow Rate . Vital Sign Comment: EKG Rhythm: Atrial Fibrillation Rhythm change?: N Notified?: Y -Dr Cherie STOUT Response: Order Received& Read Back Latest Robertson Fall Score: 75 Fall Risk: High Risk Safety Measures: Call light Within Reach, Bed Alarm Zone 1, Side Rails Side Rails x2, Bed position Low and Locked. Fall Precautions: Yellow Socks Yellow Gown Door Sign Patient Fall Education Report given to KRYSTYNA Valdez. Pt is resting on the bed. On running with Levophed drip @ 10mcg/min.
--- NOTE | 2020-09-24 07:31 | NUR ---
NURSE NOTES: Report received from Sachin Quintero RN. Patient is observed resting in bed. FLACC score of 0 noted upon assessment. Patient is currently orally intubated ET tube size 7.5 noted and patient appears to be tolerating current vent settings well with an O2 saturation of of 100% at this time. Vent settings as follows: AC 16 TV 650 FiO2 50% PEEP 8. Bilateral lower lobe breath sounds noted to be diminished upon auscultation with rhonchi noted in bilateral upper lobes. 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 Right AC g 22 IV Catheter and R Femoral TLC noted which remain asymptomatic, intact and patent. Central line dressing remains clean, dry and intact. D5 1/4 NS is currently infusing at 200mL/hr as ordered, and Levophed running. Current drips noted to be therapeutic at this time. Active bowel sounds noted in all four quadrants; abdomen remains flat, soft and nontender. OG tube noted which remains secured and patent. Tolerating current tube feeding order. Whiting catheter noted which continues to drain urine by gravity. Diagnostics reviewed at bedside. Skin remains intact. Fall, Aspiration and Skin precautions observed. Patient repositioned for comfort and safety. Patient remains resting in bed; Bed remains in the lowest position with the safety wheels engaged, call light within reach, side rails up x3 and bed alarm activated. Airborne isolation observed. Will continue plan of care.
--- NOTE | 2020-09-24 08:14 | NUR ---
RADIOLOGY NOTE: PORTABLE CHEST X-RAY COMPLETED AT 0733 HRS. FA
[2020-09-24 08:17] LABS: POTASSIUM 3.2 MMOL/L (3.5-5.1); SODIUM 144 MMOL/L (136-145)
[2020-09-24 08:18] LABS: ALANINE AMINOTRANSFERASE 32 U/L (12-78); ALBUMIN 1.8 G/DL (3.4-5.0); ASPARTATE AMINO TRANSFERASE 84 U/L (15-37); BILIRUBIN,TOTAL 1.4 MG/DL (0.2-1.0); BLOOD UREA NITROGEN 68 mg/dL (7-18); CARBON DIOXIDE 16 MMOL/L (21-32); CHLORIDE 116 MMOL/L (98-107); CREATININE 4.5 MG/DL (0.55-1.30); PHOSPHORUS 2.5 MG/DL (2.5-4.9)
[2020-09-24 08:19] LABS: ALKALINE PHOSPHATASE 76 U/L (46-116)
[2020-09-24 08:20] LABS: BILIRUBIN,DIRECT 0.8 MG/DL (0.0-0.3)
[2020-09-24] MEDS: Meropenem 500mg/NS 55ml IVPB SCH ×4 (08:42→20:51)
[2020-09-24] MEDS: Digoxin 0.125mg tab ORAL SCH (08:42)
[2020-09-24] MEDS: Pantoprazole Inj IVP SCH ×2 (08:42→20:50)
[2020-09-24] MEDS: Phenylephrine 50 MG in D5W 245 ML IV SCH (08:45)
[2020-09-24] MEDS: DOPamine 400mg/250ml 250 ML IV SCH (09:00)
[2020-09-24] MEDS: Vasopressin 100 UNITS in NS 95 ML IV SCH (09:00)
[2020-09-24] MEDS: Heparin 5000 units/ml inj SUBQ SCH ×2 (09:00→21:00)
--- NOTE | 2020-09-24 09:00 | NUR ---
NURSE NOTES: Oral care provided. Tolerating vent settings.
--- NOTE | 2020-09-24 09:17 | Diagnostic Imaging Report ---
EXAM: XR Chest, 1 View CLINICAL HISTORY: DYSPNEA TECHNIQUE: Frontal view of the chest. COMPARISON: Chest x-ray 09/23/20 7:38 AM FINDINGS: Lungs: Previously seen left lower lung opacity has resolved. Mild central vascular congestion. Left mid to lower lung linear atelectasis. Pleural space: Unremarkable. No pneumothorax. Heart: Unremarkable. No cardiomegaly. Mediastinum: Unremarkable. Bones/joints: Unremarkable. Tubes, lines and devices: Cardiac pacemaker. IMPRESSION: Previously seen left lower lung opacity has resolved. Mild central vascular congestion. Left mid to lower lung linear atelectasis.
--- NOTE | 2020-09-24 11:42 | Surgery Progress Note ---
Surgery Progress Note Subjective Additional Comments ill appearing no n/v labs noted Objective Last 24 Hour Vital Signs Date Time Temp Pulse Resp B/P (MAP) Pulse Ox O2 Delivery O2 Flow Rate FiO2 09/24/20 11:00 139/88 09/24/20 11:00 128 19 139/88 (105) 100 09/24/20 10:59 128 19 50 09/24/20 10:30 125 27 127/71 (89) 100 09/24/20 10:15 131 27 106/68 (81) 100 09/24/20 10:00 132 27 110/69 (83) 100 09/24/20 10:00 110/69 09/24/20 09:45 134 27 131/80 (97) 100 09/24/20 09:30 140 22 129/71 (90) 100 09/24/20 09:15 138 25 110/70 (83) 100 09/24/20 09:12 142 27 110/70 100 09/24/20 09:00 142 26 112/70 (84) 100 09/24/20 09:00 112/70 09/24/20 08:45 139 26 99/65 (76) 99 09/24/20 08:42 150 09/24/20 08:42 150 22 108/71 100 09/24/20 08:39 40 09/24/20 08:30 150 22 108/71 (83) 100 09/24/20 08:15 150 24 101/63 (76) 100 09/24/20 08:00 Mechanical Ventilator 09/24/20 08:00 106/71 09/24/20 08:00 98.0 148 21 106/71 (83) 100 09/24/20 08:00 50 09/24/20 07:55 162 09/24/20 07:45 148 20 109/69 (82) 100 09/24/20 07:30 146 20 92/60 (71) 100 09/24/20 07:15 148 19 96/68 (77) 100 09/24/20 07:10 147 29 50 09/24/20 07:00 148 20 92/58 (69) 100 09/24/20 07:00 92/58 09/24/20 06:30 148 26 09/24/20 06:30 148 26 104/62 (76) 100 09/24/20 06:00 151 20 108/61 (77) 100 09/24/20 06:00 108/61 09/24/20 05:30 146 19 94/56 (69) 100 09/24/20 05:00 144 20 100/56 (71) 100 09/24/20 05:00 100/56 09/24/20 04:30 143 20 108/73 (85) 100 09/24/20 04:07 150 24 90/60 100 09/24/20 04:00 50 09/24/20 04:00 98.2 146 22 90/60 (70) 100 09/24/20 04:00 90/60 09/24/20 04:00 154 09/24/20 04:00 Mechanical Ventilator 09/24/20 03:37 137 24 99/62 100 09/24/20 03:30 146 22 99/62 (74) 100 09/24/20 03:15 89/55 09/24/20 03:15 144 26 89/55 (66) 100 09/24/20 03:06 143 25 50 09/24/20 03:00 104/53 09/24/20 03:00 143 23 104/53 (70) 100 09/24/20 02:30 140 24 96/62 (73) 100 09/24/20 02:00 136 22 118/63 (81) 100 09/24/20 02:00 118/63 09/24/20 01:30 133 20 110/61 (77) 100 09/24/20 01:00 133 22 102/68 (79) 100 09/24/20 01:00 102/68 09/24/20 00:30 132 21 114/65 (81) 100 09/24/20 00:00 132 20 114/67 (83) 100 09/24/20 00:00 Mechanical Ventilator 09/24/20 00:00 50 09/24/20 00:00 114/67 09/24/20 00:00 140 09/23/20 23:30 134 20 121/69 (86) 100 09/23/20 23:04 144 26 50 09/23/20 23:00 129 20 114/66 (82) 100 09/23/20 23:00 114/66 09/23/20 22:30 129 19 118/72 (87) 100 09/23/20 22:00 131 20 122/69 (86) 100 09/23/20 22:00 122/69 09/23/20 21:30 134 22 119/71 (87) 98 09/23/20 21:00 112/69 09/23/20 21:00 131 20 112/69 (83) 98 09/23/20 20:30 133 21 104/61 (75) 100 09/23/20 20:00 50 09/23/20 20:00 Mechanical Ventilator 09/23/20 20:00 130/77 09/23/20 20:00 98.3 133 21 130/77 (94) 100 09/23/20 20:00 130 09/23/20 19:07 125 18 50 09/23/20 19:00 134 19 145/82 (103) 100 09/23/20 19:00 145/82 09/23/20 18:30 135 19 135/82 (99) 99 09/23/20 18:00 136/76 09/23/20 18:00 136 20 136/76 (96) 97 09/23/20 17:30 131 19 127/66 (86) 98 09/23/20 17:00 127/66 09/23/20 17:00 131 17 127/66 (86) 100 09/23/20 16:38 140 09/23/20 16:37 117/63 09/23/20 16:00 50 09/23/20 16:00 97.8 147 17 119/61 (80) 100 09/23/20 16:00 119/61 09/23/20 16:00 Mechanical Ventilator 09/23/20 15:26 120 09/23/20 15:14 131 17 50 09/23/20 15:00 149 17 99/63 (75) 100 09/23/20 15:00 99/63 09/23/20 14:45 154 17 106/66 (79) 100 09/23/20 14:30 154 17 93/54 (67) 100 09/23/20 14:15 135 17 115/68 (84) 100 09/23/20 14:00 139 17 97/61 (73) 100 09/23/20 14:00 97/61 09/23/20 13:45 138 16 120/60 (80) 100 09/23/20 13:30 133 16 122/67 (85) 100 09/23/20 13:15 128 17 119/64 (82) 100 09/23/20 13:00 126 17 119/67 (84) 100 09/23/20 13:00 119/67 09/23/20 12:45 126 16 112/67 (82) 100 09/23/20 12:30 126 17 118/67 (84) 100 09/23/20 12:15 125 16 119/73 (88) 100 09/23/20 12:00 50 09/23/20 12:00 Mechanical Ventilator 09/23/20 12:00 126/73 09/23/20 12:00 99.0 125 16 126/73 (90) 100 09/23/20 11:55 129 09/23/20 11:45 126 16 119/71 (87) 100 I&O Intake and Output 09/23/20 09/24/20 18:59 06:59 Intake Total 2794.090 ml 2736.31 ml Output Total 400 ml 805 ml Balance 2394.090 ml 1931.31 ml Intake Free Water 200 ml 10 ml IV Total 2594.090 ml 2586.31 ml Tube Feeding 140 ml Output Urine Total 400 ml 805 ml # Bowel Movements 2 Dressing: saturated Cardiovascular: RSR Respiratory: decreased breath sounds Abdomen: soft, non-tender, present bowel sounds Extremities: edema, no tenderness, no cyanosis Laboratory Tests Test 09/24/20 03:30 09/24/20 04:20 09/24/20 08:24 Urine Eosinophils None seen (NONE SEEN) White Blood Count 7.9 K/UL (4.8-10.8) Red Blood Count 3.04 M/UL (4.70-6.10) L Hemoglobin 9.5 G/DL (14.2-18.0) L Hematocrit 29.1 % (42.0-52.0) L Mean Corpuscular Volume 96 FL (80-99) Mean Corpuscular Hemoglobin 31.4 PG (27.0-31.0) H Mean Corpuscular Hemoglobin Concent 32.8 G/DL (32.0-36.0) Red Cell Distribution Width 14.6 % (11.6-14.8) Platelet Count 47 K/UL (150-450) L Mean Platelet Volume 11.5 FL (6.5-10.1) H Neutrophils (%) (Auto) % (45.0-75.0) Lymphocytes (%) (Auto) % (20.0-45.0) Monocytes (%) (Auto) % (1.0-10.0) Eosinophils (%) (Auto) % (0.0-3.0) Basophils (%) (Auto) % (0.0-2.0) Differential Total Cells Counted 100 Neutrophils % (Manual) 76 % (45-75) H Lymphocytes % (Manual) 9 % (20-45) L Monocytes % (Manual) 9 % (1-10) Eosinophils % (Manual) 0 % (0-3) Basophils % (Manual) 0 % (0-2) Band Neutrophils 6 % (0-8) Platelet Estimate Decreased L Platelet Morphology Giant Platelets Occasional Polychromasia 1+ Anisocytosis 1+ Sodium Level 144 MMOL/L (136-145) Potassium Level 3.2 MMOL/L (3.5-5.1) L Chloride Level 116 MMOL/L (98-107) H Carbon Dioxide Level 16 MMOL/L (21-32) L Blood Urea Nitrogen 68 mg/dL (7-18) H Creatinine 4.5 MG/DL (0.55-1.30) H Estimat Glomerular Filtration Rate 12.9 mL/min (>60) Glucose Level 150 MG/DL (74-106) H Lactic Acid Level 1.80 mmol/L (0.4-2.0) Calcium Level 6.0 MG/DL (8.5-10.1) L Phosphorus Level 2.5 MG/DL (2.5-4.9) Magnesium Level 1.4 MG/DL (1.8-2.4) L Total Bilirubin 1.4 MG/DL (0.2-1.0) H Direct Bilirubin 0.8 MG/DL (0.0-0.3) H Aspartate Amino Transf (AST/SGOT) 84 U/L (15-37) H Alanine Aminotransferase (ALT/SGPT) 32 U/L (12-78) Alkaline Phosphatase 76 U/L (46-116) Total Creatine Kinase 1088 U/L (26-308) H Total Protein 5.0 G/DL (6.4-8.2) L Albumin 1.8 G/DL (3.4-5.0) L Globulin 3.2 g/dL Amylase Level 15 U/L (25-115) L Lipase 130 U/L (73-393) Digoxin Level 1.0 NG/ML (0.5-2.0) Arterial Blood pH 7.328 (7.350-7.450) Arterial Blood Partial Pressure CO2 28.8 mmHg (35.0-45.0) L Arterial Blood Partial Pressure O2 193.5 mmHg (75.0-100.0) H Arterial Blood HCO3 14.8 mmol/L (22.0-26.0) *L Arterial Blood Oxygen Saturation 98.6 % (95-100) Arterial Blood Base Excess -9.8 (-2-2) *L Kush Test Positive Plan Problems: (1) Septic shock Assessment & Plan: anemia lactic acidosis elevated t bili / d bili imaging reviewed ill appearing weaning pressors as tolerated local care provided will follow with recs thank you Pt presented on admission with multiple Pressure Injuries.Cat 3 Skin Tear pily L chest. Base of wound is moist ,viable with 100% flap loss.No exudate noted. Cat 2 Skin Tear ventral L forearm. 20% skin flap loss,80% flap in-situ. Cat 2 Skin tear dorsal L forearm with 10% flap loss,90% skin flap in situ. Sacral DTPI(L)12cm x (W)17.5cm. Base of Pressure injury maroon with scattered Purpuric areas within base of injury. Surrounding non-blanchable erythema wit hout induration. Perianal area is erythematous. Partial Thickness Pressure injury at head of penis. Base of wound is moist and viable. Both R and L Heels are Boggy with Non-blanchable erythema. Tx.Plan: Apply Optifoam drsgs to L chest, L forearm. Change every 7 days and prn. Apply Moisture Barrier Past to sacrum. Cover with Optifoam drsg. Change every 3 days and prn. Apply Moisture Barrier Paste to penis and Perianal areas with each incontinence care. Apply Cavilon Skin Barrier to both heels. Cover each heel with Optifoam drsg. Change every 7 days and prn. Reposition at least every 2hours or as tolerated. Off-load heels with Pillow. APM/JARED Mattress. DAILY ESTIMATED NEEDS: Needs based on Critical care, wound, ARF/ 77kg abw 22-28 kcals/kg 6925-8547 total kcals 0.8-1.25 (increase w/ renal improvement) g protein/kg 61-96 g total protein 20-25 mL/kg 4138-9801 total fluid mLs NUTRITION DIAGNOSIS: Swallowing difficulty r/t respiratory failure as evidenced by orally intubated upon adm, now s/p code blue (09/22), on pressor support. CURRENT TF:npo PO DIET RECOMMENDATIONS: DRAWER WAXER eval post extubation ENTERAL NUTRITION RECOMMENDATIONS: Glucerna 1.2 @ 60ml/hr x 24 hrs to provide 1440ml, 1728kcal, 86g prot, 1159ml free water * WITH HEMODYNAMIC STABILITY -> Initiate Glucerna 1.2 @ 20ml/hrs x 6 hrs, advance 10ml q 4-6 hrs as tolerated to goal -> Flush per MD. HOB over 30 degrees -> Monitor renal fxn and lytes, need for renal TF of Nepro Without hemodynamic stability: rec trophic feeding of Glucerna 1.2 @ 10- 15ml/hr x 24 hrs ADDITIONAL RECOMMENDATIONS: * Calibrated bedscale wt * Monitor hemodynamic stability, ability to feed * Monitor renal fxn and lytes, need for renal TF formula (creat wnl last adm -> 5.2 at this time, K wnl, phos and mag low) * NISS w/ TF * Wound healing: f/up w/ WC eval, add Omar BID w/ TF (2) Multiorgan failure (3) Rapid atrial fibrillation (4) Compression fracture of L3 vertebra (5) Social isolation (6) Impaired mobility and ADLs (7) UTI (urinary tract infection) (8) Suicidal ideations (9) HTN (hypertension) (10) Failure to thrive in adult (11) Renal failure (ARF), acute on chronic (12) ANGI (acute kidney injury) (13) BPH (benign prostatic hyperplasia) (14) Schizoaffective disorder (15) Sick sinus syndrome (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 There is retrocardiac consolidation which is increased. Left upper lung, right lung and pleural space are clear. There is a left chest bifocal pacemaker. Stable satisfactory positions of endotracheal and orogastric tubes. Impression: Increased left pleural effusion and retrocardiac consolidation. Eber Slater Sep 24, 2020 11:42
--- NOTE | 2020-09-24 11:48 | Pulmonolgy Critical Care Note ---
Critical Care - Asmt/Plan Problems: (1) Multiorgan failure (2) Septic shock (3) Acute respiratory failure (4) Rapid atrial fibrillation (5) ARF (acute renal failure) (6) Pulseless ventricular tachycardia (7) Cardiopulmonary arrest (8) Schizoaffective disorder Respiratory: monitor respiratory rate, adjust FIO2, other - oxygenation improving, decrease fiO2 Cardiac: continue to monitor HR/BP Renal: F/U I&O, keep IV fluid, check electrolytes Infectious Disease: check cultures Gastrointestinal: continue feedings/current rate Endocrine: monitor blood sugar Hematologic: monitor H/H Neurologic: PRN Ativan, PRN Morphine Prophylaxis: Protonix, Heparin Time Spent (Minutes): 40 Notes Reviewed: maintenance worker municipal, renal Discussed with: nurses, consultants, foster care case managerclient services account manager - Objective Last 24 Hour Vital Signs Date Time Temp Pulse Resp B/P (MAP) Pulse Ox O2 Delivery O2 Flow Rate FiO2 09/24/20 11:00 139/88 09/24/20 11:00 128 19 139/88 (105) 100 09/24/20 10:59 128 19 50 09/24/20 10:30 125 27 127/71 (89) 100 09/24/20 10:15 131 27 106/68 (81) 100 09/24/20 10:00 132 27 110/69 (83) 100 09/24/20 10:00 110/69 09/24/20 09:45 134 27 131/80 (97) 100 09/24/20 09:30 140 22 129/71 (90) 100 09/24/20 09:15 138 25 110/70 (83) 100 09/24/20 09:12 142 27 110/70 100 09/24/20 09:00 142 26 112/70 (84) 100 09/24/20 09:00 112/70 09/24/20 08:45 139 26 99/65 (76) 99 09/24/20 08:42 150 09/24/20 08:42 150 22 108/71 100 09/24/20 08:39 40 09/24/20 08:30 150 22 108/71 (83) 100 09/24/20 08:15 150 24 101/63 (76) 100 09/24/20 08:00 Mechanical Ventilator 09/24/20 08:00 106/71 09/24/20 08:00 98.0 148 21 106/71 (83) 100 09/24/20 08:00 50 09/24/20 07:55 162 09/24/20 07:45 148 20 109/69 (82) 100 09/24/20 07:30 146 20 92/60 (71) 100 09/24/20 07:15 148 19 96/68 (77) 100 09/24/20 07:10 147 29 50 09/24/20 07:00 148 20 92/58 (69) 100 09/24/20 07:00 92/58 09/24/20 06:30 148 26 09/24/20 06:30 148 26 104/62 (76) 100 09/24/20 06:00 151 20 108/61 (77) 100 09/24/20 06:00 108/61 09/24/20 05:30 146 19 94/56 (69) 100 09/24/20 05:00 144 20 100/56 (71) 100 09/24/20 05:00 100/56 09/24/20 04:30 143 20 108/73 (85) 100 09/24/20 04:07 150 24 90/60 100 09/24/20 04:00 50 09/24/20 04:00 98.2 146 22 90/60 (70) 100 09/24/20 04:00 90/60 09/24/20 04:00 154 09/24/20 04:00 Mechanical Ventilator 09/24/20 03:37 137 24 99/62 100 09/24/20 03:30 146 22 99/62 (74) 100 09/24/20 03:15 89/55 09/24/20 03:15 144 26 89/55 (66) 100 09/24/20 03:06 143 25 50 09/24/20 03:00 104/53 09/24/20 03:00 143 23 104/53 (70) 100 09/24/20 02:30 140 24 96/62 (73) 100 09/24/20 02:00 136 22 118/63 (81) 100 09/24/20 02:00 118/63 09/24/20 01:30 133 20 110/61 (77) 100 09/24/20 01:00 133 22 102/68 (79) 100 09/24/20 01:00 102/68 09/24/20 00:30 132 21 114/65 (81) 100 09/24/20 00:00 132 20 114/67 (83) 100 09/24/20 00:00 Mechanical Ventilator 09/24/20 00:00 50 09/24/20 00:00 114/67 09/24/20 00:00 140 09/23/20 23:30 134 20 121/69 (86) 100 09/23/20 23:04 144 26 50 09/23/20 23:00 129 20 114/66 (82) 100 09/23/20 23:00 114/66 09/23/20 22:30 129 19 118/72 (87) 100 09/23/20 22:00 131 20 122/69 (86) 100 09/23/20 22:00 122/69 09/23/20 21:30 134 22 119/71 (87) 98 09/23/20 21:00 112/69 09/23/20 21:00 131 20 112/69 (83) 98 09/23/20 20:30 133 21 104/61 (75) 100 09/23/20 20:00 50 09/23/20 20:00 Mechanical Ventilator 09/23/20 20:00 130/77 09/23/20 20:00 98.3 133 21 130/77 (94) 100 09/23/20 20:00 130 09/23/20 19:07 125 18 50 09/23/20 19:00 134 19 145/82 (103) 100 09/23/20 19:00 145/82 09/23/20 18:30 135 19 135/82 (99) 99 09/23/20 18:00 136/76 09/23/20 18:00 136 20 136/76 (96) 97 09/23/20 17:30 131 19 127/66 (86) 98 09/23/20 17:00 127/66 09/23/20 17:00 131 17 127/66 (86) 100 09/23/20 16:38 140 09/23/20 16:37 117/63 09/23/20 16:00 50 09/23/20 16:00 97.8 147 17 119/61 (80) 100 09/23/20 16:00 119/61 09/23/20 16:00 Mechanical Ventilator 09/23/20 15:26 120 09/23/20 15:14 131 17 50 09/23/20 15:00 149 17 99/63 (75) 100 09/23/20 15:00 99/63 09/23/20 14:45 154 17 106/66 (79) 100 09/23/20 14:30 154 17 93/54 (67) 100 09/23/20 14:15 135 17 115/68 (84) 100 09/23/20 14:00 139 17 97/61 (73) 100 09/23/20 14:00 97/61 09/23/20 13:45 138 16 120/60 (80) 100 09/23/20 13:30 133 16 122/67 (85) 100 09/23/20 13:15 128 17 119/64 (82) 100 09/23/20 13:00 126 17 119/67 (84) 100 09/23/20 13:00 119/67 09/23/20 12:45 126 16 112/67 (82) 100 09/23/20 12:30 126 17 118/67 (84) 100 09/23/20 12:15 125 16 119/73 (88) 100 09/23/20 12:00 50 09/23/20 12:00 Mechanical Ventilator 09/23/20 12:00 126/73 09/23/20 12:00 99.0 125 16 126/73 (90) 100 09/23/20 11:55 129 09/23/20 11:45 126 16 119/71 (87) 100 Status: awake Condition: critical HEENT: atraumatic, normocephalic Lungs: clear Heart: HR/BP stable Abdomen: soft, active bowel sounds Extremities: edema Decubiti: location Micro: Microbiology Date/Time Source Procedure Growth Status 09/22/20 14:00 Nasopharynx Coronavirus COVID-19 PCR ([place]) - Final Complete 09/22/20 14:00 Sputum Gram Stain - Final Resulted 09/22/20 14:00 Sputum Culture - Preliminary Staphylococcus Aureus Resulted 09/22/20 05:55 Rectum VRE Culture - Final NO VANCOMYCIN RESISTANT ENTEROCOCCUS ... Complete 09/22/20 05:55 Nasal Nares MRSA Culture - Final Staphylococcus Aureus - Mrsa Complete 09/21/20 22:02 Nasopharynx SARS-CoV-2 RdRp Gene Assay - Final Complete 09/21/20 21:30 Urine,Clean Catch Urine Culture - Preliminary Gram Negative Jacob Resulted 09/21/20 21:15 Blood Blood Culture - Preliminary Staphylococcus Aureus Resulted 09/21/20 21:00 Blood Blood Culture - Preliminary Staphylococcus Aureus Resulted Critical Care - Subjective ROS Limited/Unobtainable: Yes Condition: critical EKG Rhythm: Sinus Rhythm FI02: 50 Vent Support Breath Rate: 16 Vent Support Mode: AC Vent Tidal Volume: 650 Sputum Amount: Scant PEEP: 8.0 PIP: 41 Tube Feeding Amount: 20 I&O: Intake and Output 09/23/20 09/24/20 19:00 07:00 Intake Total 2952.290 ml 2752.56 ml Output Total 405 ml 820 ml Balance 2547.290 ml 1932.56 ml Intake Free Water 200 ml 10 ml IV Total 2752.290 ml 2582.56 ml Tube Feeding 160 ml Output Urine Total 405 ml 820 ml # Bowel Movements 2 CXR: Previously seen left lower lung opacity has resolved. Mild central vascular congestion. Left mid to lower lung linear atelectasis. ET-Tube: 7.5 ET Position: 25 Labs: Laboratory Tests Test 09/24/20 03:30 09/24/20 04:20 09/24/20 08:24 Urine Eosinophils None seen (NONE SEEN) White Blood Count 7.9 K/UL (4.8-10.8) Red Blood Count 3.04 M/UL (4.70-6.10) L Hemoglobin 9.5 G/DL (14.2-18.0) L Hematocrit 29.1 % (42.0-52.0) L Mean Corpuscular Volume 96 FL (80-99) Mean Corpuscular Hemoglobin 31.4 PG (27.0-31.0) H Mean Corpuscular Hemoglobin Concent 32.8 G/DL (32.0-36.0) Red Cell Distribution Width 14.6 % (11.6-14.8) Platelet Count 47 K/UL (150-450) L Mean Platelet Volume 11.5 FL (6.5-10.1) H Neutrophils (%) (Auto) % (45.0-75.0) Lymphocytes (%) (Auto) % (20.0-45.0) Monocytes (%) (Auto) % (1.0-10.0) Eosinophils (%) (Auto) % (0.0-3.0) Basophils (%) (Auto) % (0.0-2.0) Differential Total Cells Counted 100 Neutrophils % (Manual) 76 % (45-75) H Lymphocytes % (Manual) 9 % (20-45) L Monocytes % (Manual) 9 % (1-10) Eosinophils % (Manual) 0 % (0-3) Basophils % (Manual) 0 % (0-2) Band Neutrophils 6 % (0-8) Platelet Estimate Decreased L Platelet Morphology Giant Platelets Occasional Polychromasia 1+ Anisocytosis 1+ Sodium Level 144 MMOL/L (136-145) Potassium Level 3.2 MMOL/L (3.5-5.1) L Chloride Level 116 MMOL/L (98-107) H Carbon Dioxide Level 16 MMOL/L (21-32) L Blood Urea Nitrogen 68 mg/dL (7-18) H Creatinine 4.5 MG/DL (0.55-1.30) H Estimat Glomerular Filtration Rate 12.9 mL/min (>60) Glucose Level 150 MG/DL (74-106) H Lactic Acid Level 1.80 mmol/L (0.4-2.0) Calcium Level 6.0 MG/DL (8.5-10.1) L Phosphorus Level 2.5 MG/DL (2.5-4.9) Magnesium Level 1.4 MG/DL (1.8-2.4) L Total Bilirubin 1.4 MG/DL (0.2-1.0) H Direct Bilirubin 0.8 MG/DL (0.0-0.3) H Aspartate Amino Transf (AST/SGOT) 84 U/L (15-37) H Alanine Aminotransferase (ALT/SGPT) 32 U/L (12-78) Alkaline Phosphatase 76 U/L (46-116) Total Creatine Kinase 1088 U/L (26-308) H Total Protein 5.0 G/DL (6.4-8.2) L Albumin 1.8 G/DL (3.4-5.0) L Globulin 3.2 g/dL Amylase Level 15 U/L (25-115) L Lipase 130 U/L (73-393) Digoxin Level 1.0 NG/ML (0.5-2.0) Arterial Blood pH 7.328 (7.350-7.450) Arterial Blood Partial Pressure CO2 28.8 mmHg (35.0-45.0) L Arterial Blood Partial Pressure O2 193.5 mmHg (75.0-100.0) H Arterial Blood HCO3 14.8 mmol/L (22.0-26.0) *L Arterial Blood Oxygen Saturation 98.6 % (95-100) Arterial Blood Base Excess -9.8 (-2-2) *L Kush Test Positive Jaclyn Byrne MD Sep 24, 2020 11:48
--- NOTE | 2020-09-24 11:56 | NUR ---
NURSE NOTES: Dr. Byrne at bedside.
--- NOTE | 2020-09-24 12:35 | NUR ---
NURSE NOTES: Dr. Rothman at bedside. Md ordered to increase tube feeding goal to 45ml/hour.
--- NOTE | 2020-09-24 13:50 | Nephrology Progress Note ---
Assessment/Plan Problem List: (1) ANGI (acute kidney injury) (2) Septic shock (3) Hypernatremia (4) NSTEMI (non-ST elevated myocardial infarction) (5) Acute respiratory failure (6) Dehydration (7) Rhabdomyolysis Assessment Sepsis, shock Acute renal failure Acute respiratory failure Hypernatremia, dehydration Non-STEMI Plan September 24: Seen in ICU. Remains intubated. Urine output improved. Serum creatinine lower. Serum CPK lower. Abnormal electrolytes addressed. Continue to monitor renal parameters. Albumin bolus given. IV rate down to 150 cc an h our. September 23: Patient intubated on ventilator. Full code. Labs reviewed. IV fluid adjusted. Abnormal electrolytes addressed. Monitor CPK for rhabdo Previously: Fluid challenge IV hydration Albumin 5% Water through NG tube Monitor renal parameters Antibiotics Urine studies Avoid nephrotoxic's Poor prognosis Patient full code Per orders Subjective ROS Limited/Unobtainable: Yes Objective Objective Last 24 Hour Vital Signs Date Time Temp Pulse Resp B/P (MAP) Pulse Ox O2 Delivery O2 Flow Rate FiO2 09/24/20 13:30 127 24 125/81 (96) 100 09/24/20 13:00 128 23 114/76 (89) 100 09/24/20 12:30 127 24 111/76 (88) 100 09/24/20 12:00 Mechanical Ventilator 09/24/20 12:00 98.2 127 24 134/80 (98) 100 09/24/20 11:33 127 09/24/20 11:30 127 21 128/85 (99) 100 09/24/20 11:00 139/88 09/24/20 11:00 128 19 139/88 (105) 100 09/24/20 10:59 128 19 50 09/24/20 10:30 125 27 127/71 (89) 100 09/24/20 10:15 131 27 106/68 (81) 100 09/24/20 10:00 132 27 110/69 (83) 100 09/24/20 10:00 110/69 09/24/20 09:45 134 27 131/80 (97) 100 09/24/20 09:30 140 22 129/71 (90) 100 09/24/20 09:15 138 25 110/70 (83) 100 09/24/20 09:12 142 27 110/70 100 12/25/20 09:00 142 26 112/70 (84) 100 09/24/20 09:00 112/70 09/24/20 08:45 139 26 99/65 (76) 99 09/24/20 08:42 150 09/24/20 08:42 150 22 108/71 100 09/24/20 08:39 40 09/24/20 08:30 150 22 108/71 (83) 100 09/24/20 08:15 150 24 101/63 (76) 100 09/24/20 08:00 Mechanical Ventilator 09/24/20 08:00 106/71 09/24/20 08:00 98.0 148 21 106/71 (83) 100 09/24/20 08:00 50 09/24/20 07:55 162 09/24/20 07:45 148 20 109/69 (82) 100 09/24/20 07:30 146 20 92/60 (71) 100 09/24/20 07:15 148 19 96/68 (77) 100 09/24/20 07:10 147 29 50 09/24/20 07:00 148 20 92/58 (69) 100 09/24/20 07:00 92/58 09/24/20 06:30 148 26 09/24/20 06:30 148 26 104/62 (76) 100 09/24/20 06:00 151 20 108/61 (77) 100 09/24/20 06:00 108/61 09/24/20 05:30 146 19 94/56 (69) 100 09/24/20 05:00 144 20 100/56 (71) 100 09/24/20 05:00 100/56 09/24/20 04:30 143 20 108/73 (85) 100 09/24/20 04:07 150 24 90/60 100 09/24/20 04:00 50 09/24/20 04:00 98.2 146 22 90/60 (70) 100 09/24/20 04:00 90/60 09/24/20 04:00 154 09/24/20 04:00 Mechanical Ventilator 09/24/20 03:37 137 24 99/62 100 09/24/20 03:30 146 22 99/62 (74) 100 09/24/20 03:15 89/55 09/24/20 03:15 144 26 89/55 (66) 100 09/24/20 03:06 143 25 50 09/24/20 03:00 104/53 09/24/20 03:00 143 23 104/53 (70) 100 09/24/20 02:30 140 24 96/62 (73) 100 09/24/20 02:00 136 22 118/63 (81) 100 09/24/20 02:00 118/63 09/24/20 01:30 133 20 110/61 (77) 100 09/24/20 01:00 133 22 102/68 (79) 100 09/24/20 01:00 102/68 09/24/20 00:30 132 21 114/65 (81) 100 09/24/20 00:00 132 20 114/67 (83) 100 09/24/20 00:00 Mechanical Ventilator 09/24/20 00:00 50 09/24/20 00:00 114/67 09/24/20 00:00 140 09/23/20 23:30 134 20 121/69 (86) 100 09/23/20 23:04 144 26 50 09/23/20 23:00 129 20 114/66 (82) 100 09/23/20 23:00 114/66 09/23/20 22:30 129 19 118/72 (87) 100 09/23/20 22:00 131 20 122/69 (86) 100 09/23/20 22:00 122/69 09/23/20 21:30 134 22 119/71 (87) 98 09/23/20 21:00 112/69 09/23/20 21:00 131 20 112/69 (83) 98 09/23/20 20:30 133 21 104/61 (75) 100 09/23/20 20:00 50 09/23/20 20:00 Mechanical Ventilator 09/23/20 20:00 130/77 09/23/20 20:00 98.3 133 21 130/77 (94) 100 09/23/20 20:00 130 09/23/20 19:07 125 18 50 09/23/20 19:00 134 19 145/82 (103) 100 09/23/20 19:00 145/82 09/23/20 18:30 135 19 135/82 (99) 99 09/23/20 18:00 136/76 12/24/20 18:00 136 20 136/76 (96) 97 09/23/20 17:30 131 19 127/66 (86) 98 09/23/20 17:00 127/66 09/23/20 17:00 131 17 127/66 (86) 100 09/23/20 16:38 140 09/23/20 16:37 117/63 09/23/20 16:00 50 09/23/20 16:00 97.8 147 17 119/61 (80) 100 09/23/20 16:00 119/61 09/23/20 16:00 Mechanical Ventilator 09/23/20 15:26 120 09/23/20 15:14 131 17 50 09/23/20 15:00 149 17 99/63 (75) 100 09/23/20 15:00 99/63 09/23/20 14:45 154 17 106/66 (79) 100 09/23/20 14:30 154 17 93/54 (67) 100 09/23/20 14:15 135 17 115/68 (84) 100 09/23/20 14:00 139 17 97/61 (73) 100 09/23/20 14:00 97/61 Intake and Output 09/23/20 09/24/20 19:00 07:00 Intake Total 2952.290 ml 2752.56 ml Output Total 405 ml 820 ml Balance 2547.290 ml 1932.56 ml Intake Free Water 200 ml 10 ml IV Total 2752.290 ml 2582.56 ml Tube Feeding 160 ml Output Urine Total 405 ml 820 ml # Bowel Movements 2 Laboratory Tests 09/24/20 03:30: Urine Eosinophils None seen 09/24/20 04:20: White Blood Count 7.9, Red Blood Count 3.04L, Hemoglobin 9.5L, Hematocrit 29.1L, Mean Corpuscular Volume 96, Mean Corpuscular Hemoglobin 31.4H, Mean Corpuscular Hemoglobin Concent 32.8, Red Cell Distribution Width 14.6, Platelet Count 47L, Mean Platelet Volume 11.5H, Neutrophils (%) (Auto) , Lymphocytes (%) (Auto) , Monocytes (%) (Auto) , Eosinophils (%) (Auto) , Basophils (%) (Auto) , Differential Total Cells Counted 100, Neutrophils % (Manual) 76H, Lymphocytes % (Manual) 9L, Monocytes % (Manual) 9, Eosinophils % (Manual) 0, Basophils % (Manual) 0, Band Neutrophils 6, Platelet Estimate DecreasedL, Platelet Morphology , Giant Platelets Occasional, Polychromasia 1+, Anisocytosis 1+, Sodium Level 144, Potassium Level 3.2L, Chloride Level 116H, Carbon Dioxide Level 16L, Blood Urea Nitrogen 68H, Creatinine 4.5H, Estimat Glomerular Filtration Rate 12.9, Glucose Level 150H, Lactic Acid Level 1.80, Calcium Level 6.0L, Phosphorus Level 2.5, Magnesium Level 1.4L, Total Bilirubin 1.4H, Direct B ilirubin 0.8H, Aspartate Amino Transf (AST/SGOT) 84H, Alanine Aminotransferase (ALT/SGPT) 32, Alkaline Phosphatase 76, Total Creatine Kinase 1088H, Total Protein 5.0L, Albumin 1.8L, Globulin 3.2, Amylase Level 15L, Lipase 130, Digoxin Level 1.0 09/24/20 08:24: Arterial Blood pH 7.328L, Arterial Blood Partial Pressure CO2 28.8L, Arterial Blood Partial Pressure O2 193.5H, Arterial Blood HCO3 14.8*L, Arterial Blood Oxygen Saturation 98.6, Arterial Blood Base Excess -9.8*L, Kush Test Positive Height (Feet): 5 Height (Inches): 9.00 Weight (Pounds): 190 General Appearance: no apparent distress EENT: other - Intubated on ventilator Cardiovascular: tachycardia Respiratory/Chest: decreased breath sounds Abdomen: distended Gelacio Mata MD Sep 24, 2020 13:50
--- NOTE | 2020-09-24 14:00 | NUR ---
NURSE NOTES: Tolerating tube feeding. No residuals noted. Will continue to monitor.
--- NOTE | 2020-09-24 14:00 | NUR ---
NURSE NOTES: Titrated amiodarone drip to 0.5mg/min per protocol. Will continue to monitor patient's heart rate.
[2020-09-24] MEDS ORDERED: Tubing IV Secondary IV ONE ×2 (15:14→15:28)
[2020-09-24] MEDS ORDERED: NS 275ml ONE ×2 (15:14→15:28)
[2020-09-24] MEDS ORDERED: D5 1/2NS 1000ml IV ONE (15:28)
--- NOTE | 2020-09-24 16:00 | NUR ---
NURSE NOTES: Turned and repositioned by 2 staff.
--- NOTE | 2020-09-24 18:00 | NUR ---
NURSE NOTES: Kept clean and dry.
--- NOTE | 2020-09-24 19:20 | NUR ---
NURSE HAND-OFF REPORT: Latest Vital Signs: Temperature 98.7 , Pulse 124 , B/P 127 /71 , Respiratory Rate 32 , O2 SAT 100 , Mechanical Ventilator, O2 Flow Rate . Vital Sign Comment: on amiodarone drip and levophed drip. EKG Rhythm: Atrial Fibrillation Rhythm change?: N Latest Robertson Fall Score: 75 Fall Risk: High Risk Safety Measures: Call light Within Reach, Bed Alarm Zone 1, Side Rails Side Rails x2, Bed position Low and Locked. Fall Precautions: Yellow Socks Yellow Gown Door Sign Patient Fall Education Report given to Sachin Vogt RN.
--- NOTE | 2020-09-24 19:30 | NUR ---
NURSE NOTES: Received report from KRYSTYNA Valdez. Pt is resting on the bed and obtunded. Pt has ETT and orally intubated. Vent dependent and setting with AC: 16, T:650, P : 5, FiO2 40% and SaO2 99-100% noted. given suction and oral care. on monitoring specialist with A-fib and HR: 120-130's. Pt has Lt. chest pacemaker. No sign of pain by FLACC scale. No fever. Pt has OGT and in placed. Pt has Whiting cath and patent and drainage well. Dressing is clean and dry on wound area. On P-200 mattress for wound management. Iv site intact and no sign of infiltration noted. Pt has Rt. Femoral TLC and dressing is intact. On running with Levophed drip @ 6mcg/min, amiodarone drip @ 0.5mg/min fro maintenance and D51/4NS @ 150cc/hr. Placed fall precaution. On proper isolation for PUI for COVID-19. Will continue to care plan. Addendum: 09/25/20 at 0724 by FOREST CABALLERO RN RN charting error. Change from Vent setting P:5 to P: 8
[2020-09-24] MEDS: Dyna-Hex 2% Top Sol 2oz TOPIC SCH (19:44)
--- NOTE | 2020-09-24 20:27 | Internal Med Progress Note ---
Subjective Physician Name Andrés Rothman Attending Physician Andrés Rothman MD Current Medications Medications (Trade) Dose Ordered Sig/Fabrizio Route PRN Reason Start Time Stop Time Status Last Admin Dose Admin Acetaminophen (Tylenol) 650 mg Q4H PRN NG Mild Pain (Pain Scale 1-3) 09/23/20 13:30 10/23/20 13:29 09/23/20 13:42 Acetaminophen (Tylenol) 650 mg Q4H PRN NG Mild Pain (Pain Scale 1-3) 09/23/20 13:30 10/23/20 13:29 Albuterol/ Ipratropium (Albuterol/ Ipratropium) 3 ml Q4H PRN HHN Shortness of Breath 09/21/20 23:45 09/26/20 23:44 Amiodarone HCl 900 mg/Dextrose 500 ml @ 0 mls/hr Q24HRS IV 09/24/20 07:30 09/25/20 08:00 09/24/20 07:24 Chlorhexidine Gluconate (Jennifer-Hex 2%) 1 applic DAILY@2000 TOPIC 09/22/20 20:00 12/21/20 19:59 09/24/20 19:44 Dextrose/Sodium Chloride 1,000 ml @ 150 mls/hr Q6H40M IV 09/22/20 11:00 10/22/20 10:59 09/24/20 17:17 Digoxin (Lanoxin) 0.125 mg DAILY ORAL 09/24/20 09:00 12/23/20 08:59 09/24/20 08:42 Dopamine HCl/ Dextrose 250 ml @ 0 mls/hr Q24H IV 09/22/20 09:00 09/25/20 08:59 09/22/20 10:30 Haloperidol Lactate (Haldol) 5 mg Q6H PRN IM Agitation 09/21/20 23:45 11/05/20 23:44 Heparin Sodium (Porcine) (Heparin 5000 units/ml) 5,000 units EVERY 12 HOURS SUBQ 09/22/20 09:00 11/06/20 08:59 09/22/20 21:00 Lorazepam (Ativan 2mg/ml 1ml) 2 mg Q2H PRN IV For Anxiety 09/21/20 23:45 09/28/20 23:44 09/24/20 17:39 Meropenem 500 mg/ Sodium Chloride 55 ml @ 110 mls/hr Q12HR IVPB 09/22/20 10:00 09/27/20 09:59 09/24/20 08:42 Morphine Sulfate (Morphine Sulfate) 4 mg Q4H PRN IVP Severe Pain (Pain Scale 7-10) 09/21/20 23:45 09/28/20 23:44 Norepinephrine Bitartrate 16 mg/ Sodium Chloride 500 ml @ 0 mls/hr Q24H IV 09/22/20 16:00 09/25/20 15:59 09/23/20 16:37 Ondansetron HCl (Zofran) 4 mg Q6H PRN IVP Nausea & Vomiting 09/21/20 23:45 10/21/20 23:44 Pantoprazole (Protonix) 40 mg Q12HR IVP 09/22/20 21:00 10/22/20 08:59 09/24/20 08:42 Phenylephrine HCl 50 mg/Dextrose 250 ml @ 0 mls/hr Q24H IV 09/22/20 08:45 09/25/20 08:42 09/22/20 12:00 Polyethylene Glycol (Miralax) 17 gm DAILYPRN PRN ORAL Constipation 09/21/20 23:45 10/21/20 23:44 [facility] DAILY PRN MISC PER RX PROTOCOL 09/22/20 07:45 10/22/20 07:44 Vasopressin 100 units/Sodium Chloride 100 ml @ 0 mls/hr Q24H IV 09/22/20 09:00 09/25/20 08:59 09/22/20 10:07 Allergies: Coded Allergies: No Known Allergies (Unverified , 07/22/20) Subjective in ICU, intubated remained on ventilation, unable to follow commands, unresponsive, sodium: 144, hemoglobin: 9.5, renal function improving presently on one pressors: Levophed., in droplet/respiratory isolation room. COVID-19 test negative X 2 Objective Last Vital Signs Date Time Temp Pulse Resp B/P (MAP) Pulse Ox O2 Delivery O2 Flow Rate FiO2 09/24/20 19:05 124 26 50 09/24/20 19:00 127/71 09/24/20 19:00 100 09/24/20 17:00 98.7 09/24/20 16:00 Mechanical Ventilator 09/22/20 08:00 15.0 Laboratory Tests Test 09/24/20 03:30 09/24/20 04:20 09/24/20 08:24 Urine Eosinophils None seen (NONE SEEN) White Blood Count 7.9 K/UL (4.8-10.8) Red Blood Count 3.04 M/UL (4.70-6.10) L Hemoglobin 9.5 G/DL (14.2-18.0) L Hematocrit 29.1 % (42.0-52.0) L Mean Corpuscular Volume 96 FL (80-99) Mean Corpuscular Hemoglobin 31.4 PG (27.0-31.0) H Mean Corpuscular Hemoglobin Concent 32.8 G/DL (32.0-36.0) Red Cell Distribution Width 14.6 % (11.6-14.8) Platelet Count 47 K/UL (150-450) L Mean Platelet Volume 11.5 FL (6.5-10.1) H Neutrophils (%) (Auto) % (45.0-75.0) Lymphocytes (%) (Auto) % (20.0-45.0) Monocytes (%) (Auto) % (1.0-10.0) Eosinophils (%) (Auto) % (0.0-3.0) Basophils (%) (Auto) % (0.0-2.0) Differential Total Cells Counted 100 Neutrophils % (Manual) 76 % (45-75) H Lymphocytes % (Manual) 9 % (20-45) L Monocytes % (Manual) 9 % (1-10) Eosinophils % (Manual) 0 % (0-3) Basophils % (Manual) 0 % (0-2) Band Neutrophils 6 % (0-8) Platelet Estimate Decreased L Platelet Morphology Giant Platelets Occasional Polychromasia 1+ Anisocytosis 1+ Sodium Level 144 MMOL/L (136-145) Potassium Level 3.2 MMOL/L (3.5-5.1) L Chloride Level 116 MMOL/L (98-107) H Carbon Dioxide Level 16 MMOL/L (21-32) L Blood Urea Nitrogen 68 mg/dL (7-18) H Creatinine 4.5 MG/DL (0.55-1.30) H Estimat Glomerular Filtration Rate 12.9 mL/min (>60) Glucose Level 150 MG/DL (74-106) H Lactic Acid Level 1.80 mmol/L (0.4-2.0) Calcium Level 6.0 MG/DL (8.5-10.1) L Phosphorus Level 2.5 MG/DL (2.5-4.9) Magnesium Level 1.4 MG/DL (1.8-2.4) L Total Bilirubin 1.4 MG/DL (0.2-1.0) H Direct Bilirubin 0.8 MG/DL (0.0-0.3) H Aspartate Amino Transf (AST/SGOT) 84 U/L (15-37) H Alanine Aminotransferase (ALT/SGPT) 32 U/L (12-78) Alkaline Phosphatase 76 U/L (46-116) Total Creatine Kinase 1088 U/L (26-308) H Total Protein 5.0 G/DL (6.4-8.2) L Albumin 1.8 G/DL (3.4-5.0) L Globulin 3.2 g/dL Amylase Level 15 U/L (25-115) L Lipase 130 U/L (73-393) Digoxin Level 1.0 NG/ML (0.5-2.0) Arterial Blood pH 7.328 (7.350-7.450) Arterial Blood Partial Pressure CO2 28.8 mmHg (35.0-45.0) L Arterial Blood Partial Pressure O2 193.5 mmHg (75.0-100.0) H Arterial Blood HCO3 14.8 mmol/L (22.0-26.0) *L Arterial Blood Oxygen Saturation 98.6 % (95-100) Arterial Blood Base Excess -9.8 (-2-2) *L Kush Test Positive Microbiology Date/Time Source Procedure Growth Status 09/22/20 14:00 Nasopharynx Coronavirus COVID-19 PCR ([facility]) - Final Complete 09/22/20 14:00 Sputum Gram Stain - Final Resulted 09/22/20 14:00 Sputum Culture - Preliminary Staphylococcus Aureus Resulted 09/22/20 05:55 Rectum VRE Culture - Final NO VANCOMYCIN RESISTANT ENTEROCOCCUS ... Complete 09/22/20 05:55 Nasal Nares MRSA Culture - Final Staphylococcus Aureus - Mrsa Complete 09/21/20 22:02 Nasopharynx SARS-CoV-2 RdRp Gene Assay - Final Complete 09/21/20 21:30 Urine,Clean Catch Urine Culture - Final Escherichia Coli Complete 09/21/20 21:15 Blood Blood Culture - Final Staphylococcus Aureus - Mrsa Complete 09/21/20 21:00 Blood Blood Culture - Final Staphylococcus Aureus - Mrsa Complete Intake and Output 09/23/20 09/24/20 19:00 07:00 Intake Total 2952.290 ml 2752.56 ml Output Total 405 ml 820 ml Balance 2547.290 ml 1932.56 ml Intake Free Water 200 ml 10 ml IV Total 2752.290 ml 2582.56 ml Tube Feeding 160 ml Output Urine Total 405 ml 820 ml # Bowel Movements 2 Objective General: remain on ventilation, unresponsive, cannot follow commands. HEENT: NCAT, sclera anicteric, PERRL, ET Tube. Neck: Supple, no significant jugular venous distention, Lungs: mechanical breath sounds, decreased air at the bases, no wheezes. Heart: S1, S2, Rgular rate and return, normal S1/S2, no murmurs, pacemaker at left side chest wall. Abdomen: soft, nontender, nondistended. Normoactive bowel sounds. : Whiting catheter. Extremities: No Cyanosis , clubbing or edema. Neuro: limited secondary to patient's status, unable to follow commands. Assessment/Plan Assessment/Plan ASSESSMENT: This is a 75-year-old white male with: 1. Pneumonia. 2. Acute hypoxemic Respiratory failure. 3. Septic shock. 4. Non-ST elevated myocardial infarction. 5. Hypertension. 6. Benign prostatic hypertrophy. 7. Alzheimer's dementia. 8. Depression. 9. status post cardiopulmonary arrest / PEA arrest (09/22/2020) 10. Atrial fibrillation with rapid ventricular rate. 11. Acute renal failure on chronic renal insufficiency. 12. hypernatremia. 13. Multiorgan failure. 14. Acute E. coli UTI. 15. MRSA sepsis/bacteremia. 16. NSTEMI 17. sick sinus syndrome status post a pacemaker on 08/27/2020. TREATMENT: 1. Pneumonia. Abx: meropenem and vancomycin. An Infectious Disease consultation has been obtained with Dr. Aviles. Follow recommendations of Infectious Disease. A Pulmonary consultation has been obtained with Dr. Jaclyn Byrne. 2. Septic shock. The patient is currently on vasopressin. 3. Non-ST elevated myocardial infarction. A Cardiology consultation has been obtained with Dr. Carlos Eduardo Crespo. Follow recommendations of Cardiology. 4. Hypertension. The patient is currently hypotensive. Hold antihypertensive medication. 5. Benign prostatic hypertrophy. Continue Flomax as above. 6. Alzheimer's dementia. 7. History of schizophrenia/depression. 8. Pacemaker in situ. tolerated tube feeding at 20 cc/h, increase rate to 45 cc/hr. on Amiodarone drip Pressors: Levophed, Wean off vasopressin CODE STATUS: Full code. DVT prophylaxis: heparin subcu. CXR: Previously seen left lower lung opacity has resolved. Mild central vascular congestion. Left mid to lower lung linear atelectasis. Andrés Rothman MD Sep 24, 2020 20:26
[2020-09-24] MEDS: Norepinephrine Bitartrate 16 MG in Sodium Chloride 484 ML IV SCH (20:52)
--- NOTE | 2020-09-24 20:53 | NUR ---
NURSE NOTES: Noted BP 137/82mmHg. decrease Levophed drip @ 4mcg/min. Will continue to monitor.
--- NOTE | 2020-09-24 22:00 | NUR ---
NURSE NOTES: Pt is resting on the bed. On quality assurance monitor final with A-fib and HR: 110's. on running with Levophed drip @ 4mcg/min, amiodarone @ 0.5mg/min and D51/4NS @ 150cc/hr. SaO2 100% with current Vent setting. Changed position. Will continue to monitor any change of condition.
[2020-09-25] VITALS (45 sets, daily range): BP systolic 90–130; BP diastolic 47–79
--- NOTE | 2020-09-25 | NUR ---
NURSE NOTES: Pt is resting on the bed and slight agitated. Given ativan 2mg IV as ordered. Cardiac rhythm, converted ST and on & off A-pacing and HR: 120-130's. Given suction and oral care. changed position. on running with OGT feeding with Glucerna 1.2 @ 30cc/hr. Placed fall precaution. Will continue to monitor any change of condition.
--- NOTE | 2020-09-25 02:30 | NUR ---
NURSE NOTES: Noted BP 129/68mmHg. Decrease Levophed gtt @ 2mcg/min as titrate. SaO2 100% with current Vent setting. given suction and oral care. On running with amiodarone drip @ 0.5mg/min. Changed position. Will continue to monitor.
--- NOTE | 2020-09-25 04:00 | NUR ---
NURSE NOTES: Morning care was done. Cleaned Pt and applied lotion and cream. changed wound dressing. noted small amount BM. collected urine sample. SaO2 100% with current Vent setting. No fever. on satellite project site monitor with ST and A-pacing but no capture. Turn and reposition. Will continue to monitor any change of condition.
[2020-09-25 05:32] LABS: HEMATOCRIT 28.1 % (42.0-52.0); HEMOGLOBIN 9.4 G/DL (14.2-18.0); MEAN CORPUSCULAR VOLUME 95 FL (80-99); PLATELET COUNT 43 K/UL (150-450); RED BLOOD COUNT 2.95 M/UL (4.70-6.10); RED CELL DISTRIBUTION WIDTH 14.5 % (11.6-14.8); WHITE BLOOD COUNT 3.9 K/UL (4.8-10.8)
--- NOTE | 2020-09-25 06:00 | NUR ---
NURSE NOTES: suction and oral care was done. changed position. will continue to monitor.
[2020-09-25 06:26] LABS: ALBUMIN/GLOBULIN RATIO 0.6 (1.0-2.7); BILIRUBIN,TOTAL 1.3 MG/DL (0.2-1.0); CALCIUM 6.1 MG/DL (8.5-10.1); POTASSIUM 3.7 MMOL/L (3.5-5.1)
[2020-09-25 06:31] LABS: CREATINE KINASE 632 U/L (26-308); GAMMA GLUTAMYL TRANSPEPTIDASE 43 U/L (5-85)
[2020-09-25 06:37] LABS: BILIRUBIN,DIRECT 0.8 MG/DL (0.0-0.3)
[2020-09-25 06:38] LABS: PHOSPHORUS 2.5 MG/DL (2.5-4.9)
--- NOTE | 2020-09-25 07:21 | NUR ---
NURSE HAND-OFF REPORT: Latest Vital Signs: Temperature 98.8 , Pulse 121 , B/P 116 /68 , Respiratory Rate 30 , O2 SAT 100 , Mechanical Ventilator, O2 Flow Rate . Vital Sign Comment: EKG Rhythm: Sinus Tachycardia Rhythm change?: N Latest Robertson Fall Score: 75 Fall Risk: High Risk Safety Measures: Call light Within Reach, Bed Alarm Zone 1, Side Rails Side Rails x2, Bed position Low and Locked. Fall Precautions: Yellow Socks Yellow Gown Door Sign Patient Fall Education Report given to KRYSTYNA [place]. Pt is resting on the bed. On running with amiodarone @ 0.5mg/min and Levophed @ 2mcg/min and D51/5NS @ 150cc/hr. SaO2 100% with current Vent setting.
--- NOTE | 2020-09-25 07:27 | NUR ---
NURSE NOTES: Received report from KRYSTYNA Stephenson. Patient orally intubated; ETT 7.5, 23cm @ the lipline with vent settings of AC:16, TV:650, FiO2:40% PEEP:5, O2sat:94%. Patient is sedated RASS -2; awakens to voice and touch. OGT in place and patent running Glucerna 1.2 @ 40ml/hr. Whiting catheter in place and draining to urometer. Right femoral TLC running D5 1/4NS @ 150ml/hr, Levophed @ 2mcg/min and Amiodarone @ 0.5mg/min. Pt noted to have generalized edema. Skin issues noted. Safety measures in place; bed low, locked and alarm is on. Will continue plan of care.
[2020-09-25] MEDS ORDERED: Amiodarone 900 MG in D5W 500ml 482 ML IV SCH (07:30)
[2020-09-25] MEDS: Amiodarone 900 MG in D5W 500ml 482 ML IV SCH (07:30)
[2020-09-25] MEDS ORDERED: Vancomycin 1gm/D5W 275ml IVPB SCH ×2 (08:00)
[2020-09-25] MEDS: D5 1/4NS 1000ml 1,000 ML IV SCH ×3 (08:15→17:01)
[2020-09-25] MEDS: Pantoprazole Inj IVP SCH ×2 (08:16→20:24)
[2020-09-25] MEDS: Meropenem 500mg/NS 55ml IVPB SCH ×4 (08:16→20:24)
[2020-09-25] MEDS: Digoxin 0.125mg tab ORAL SCH (08:17)
[2020-09-25] MEDS: Heparin 5000 units/ml inj SUBQ SCH ×2 (08:17→21:00)
--- NOTE | 2020-09-25 08:50 | Diagnostic Imaging Report ---
EXAM: XR Chest, 1 View CLINICAL HISTORY: DYSPNEA TECHNIQUE: Frontal view of the chest. COMPARISON: 09/24/20 FINDINGS: Lungs: There is been increase in left lower lobe infiltrate, suspicious for pneumonia. Pleural space: Unremarkable. No pneumothorax. Heart: Unremarkable. No cardiomegaly. Mediastinum: Unremarkable. Bones/joints: Unremarkable. Tubes, lines and devices: There are Left subclavian cardiac leads in good position. There is an NG tube with its tip in the mid stomach. IMPRESSION: There is been increase in left lower lobe infiltrate, suspicious for pneumonia.
--- NOTE | 2020-09-25 09:00 | NUR ---
NURSE NOTES: Wound assessed on sacral area and picture taken. Pt turned and repositioned for comfort.
--- NOTE | 2020-09-25 10:00 | NUR ---
NURSE NOTES: Dr Byrne at bedside assessing pt. Updated him on pt's current condition.
--- NOTE | 2020-09-25 11:24 | Infectious Diseases Prog Note ---
Assessment/Plan 75yo M with: Septic shock MRSA bacteremia CODE BLUE 09/21, s/p ROSC Pneumonia, c/f aspiration Hypoxic resp failure s/p intubation 09/21 R/o UTI Hypotension on pressors ANGI, Cr in 5s Elevated AST to 100s Febrile Normal WBC Lymphopenia 09/21 BCx +MRSA UA+ UCx E.coli S-CTX Resp cx +MSSA COVID rapid neg, PCR NEG CT chest: 1. Almost complete opacification of the left mainstem bronchus, segmental and subsegmental bronchi with presumed debris. Tree-in-bud nodularity along with patchy airspace consolidations are identified in the bilateral lower lobes, left greater than right. Constellation of findings are suspicious for aspiration pneumonia. 2. Left lower lobe and lingular subsegmental atelectasis. 3. 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 TTE: No vegetations 09/23 BCx NTD 09/25 BCx ordered HyperNa to 170 on admission ANGI on CKD, Cr in 5s, worsening SNF resident Dementia Plan: Cont meropenem #4/7 Cont vanco IV #5, duration TBD Recommend CHANDLER given presenting sepsis w/ MRSA bacteremia of unclear source (resp cx has MSSA) Repeat BCx today F/u repeat BCx 09/23, ensure clear 09/22 SP amikacin x1 09/21 SP Zosyn in ED Monitor CBC/CMP Monitor temp curve, hemodynamics Monitor resp status D/w RN Thank you for this consult. [facility] will continue to follow. Subjective Allergies: Coded Allergies: No Known Allergies (Unverified , 07/22/20) AF BCx +MRSA WBC 3.9 NAD on vent Off pressors Objective Last 24 Hour Vital Signs Date Time Temp Pulse Resp B/P (MAP) Pulse Ox O2 Delivery O2 Flow Rate FiO2 09/25/20 09:00 118 31 108/65 (79) 100 09/25/20 08:30 121 28 117/71 (86) 100 09/25/20 08:17 123 09/25/20 08:00 99.0 122 30 117/66 (83) 100 09/25/20 07:00 121 30 116/68 (84) 100 09/25/20 06:39 122 30 40 09/25/20 06:30 122 30 09/25/20 06:30 122 30 118/67 (84) 100 09/25/20 06:00 103/59 09/25/20 06:00 121 29 103/59 (74) 100 09/25/20 05:30 123 29 112/64 (80) 100 09/25/20 05:00 122 33 112/67 (82) 100 09/25/20 05:00 112/67 09/25/20 04:30 123 33 111/66 (81) 100 09/25/20 04:00 40 09/25/20 04:00 113/67 09/25/20 04:00 Mechanical Ventilator 09/25/20 04:00 98.8 119 34 113/67 (82) 100 09/25/20 04:00 123 09/25/20 03:30 118 34 117/67 (84) 100 09/25/20 03:00 113 34 108/64 (79) 100 09/25/20 03:00 108/64 09/25/20 02:30 129/68 09/25/20 02:30 123 31 129/68 (88) 100 09/25/20 02:00 120 34 130/79 (96) 100 09/25/20 02:00 130/79 09/25/20 01:45 98 28 40 09/25/20 01:30 119 34 124/66 (85) 100 09/25/20 01:00 121 29 109/69 (82) 100 09/25/20 01:00 109/69 09/25/20 00:30 123 29 124/73 (90) 100 09/25/20 00:18 120 32 119/65 100 09/25/20 00:00 Mechanical Ventilator 09/25/20 00:00 98.8 120 32 119/65 (83) 100 09/25/20 00:00 116/65 09/25/20 00:00 127 09/25/20 00:00 40 09/24/20 23:48 125 22 109/68 100 09/24/20 23:30 122 33 111/70 (84) 100 09/24/20 23:00 128/71 09/24/20 23:00 124 31 128/71 (90) 100 09/24/20 22:30 114 33 117/72 (87) 100 09/24/20 22:04 127 30 40 09/24/20 22:00 110 32 121/83 (96) 100 09/24/20 22:00 121/83 09/24/20 21:30 124 30 126/73 (90) 100 09/24/20 21:00 100 32 113/69 (84) 100 09/24/20 21:00 137/82 09/24/20 20:53 137/82 09/24/20 20:52 137/82 09/24/20 20:30 115 34 131/80 (97) 100 09/24/20 20:00 Mechanical Ventilator 09/24/20 20:00 117/77 09/24/20 20:00 124 09/24/20 20:00 40 09/24/20 20:00 98.7 122 34 117/77 (90) 100 09/24/20 19:30 124 31 128/81 (97) 100 09/24/20 19:05 124 26 50 09/24/20 19:00 127/71 09/24/20 19:00 124 32 127/71 (89) 100 09/24/20 18:30 116 29 128/70 (89) 100 09/24/20 18:09 124 29 137/81 100 09/24/20 18:00 127/77 09/24/20 18:00 115 30 127/77 (94) 100 09/24/20 17:45 104 28 120/67 (84) 100 09/24/20 17:39 111 29 160/79 100 09/24/20 17:30 113 24 160/79 (106) 100 09/24/20 17:00 153/85 09/24/20 17:00 98.7 119 32 153/85 (107) 100 09/24/20 16:45 122 32 92/58 (69) 100 09/24/20 16:30 122 33 89/58 (68) 100 09/24/20 16:15 123 30 91/64 (73) 100 09/24/20 16:00 127/79 09/24/20 16:00 122 09/24/20 16:00 127 33 127/79 (95) 100 09/24/20 16:00 40 09/24/20 16:00 Mechanical Ventilator 09/24/20 15:30 122 36 95/63 (74) 100 09/24/20 15:00 123/79 09/24/20 15:00 126 22 123/79 (94) 100 09/24/20 14:54 127 23 50 09/24/20 14:45 127 23 112/70 (84) 100 09/24/20 14:30 126 22 132/80 (97) 100 09/24/20 14:15 127 25 124/77 (93) 100 09/24/20 14:00 114/75 09/24/20 14:00 128 23 114/75 (88) 100 09/24/20 13:30 127 24 125/81 (96) 100 09/24/20 13:00 128 23 114/76 (89) 100 09/24/20 13:00 114/76 09/24/20 12:30 127 24 111/76 (88) 100 09/24/20 12:00 Mechanical Ventilator 09/24/20 12:00 98.2 127 24 134/80 (98) 100 09/24/20 12:00 134/80 09/24/20 11:33 127 09/24/20 11:30 127 21 128/85 (99) 100 Height (Feet): 5 Height (Inches): 9.00 Weight (Pounds): 190 Gen: NAD HEENT: NCAT Pulm: BL chest rise Abd: Non-distended Ext: No c/c/e Skin: No visible rashes Neuro: Awake Microbiology Date/Time Source Procedure Growth Status 09/22/20 14:00 Nasopharynx Coronavirus COVID-19 PCR ([facility]) - Final Complete 09/22/20 14:00 Sputum Gram Stain - Final Complete 09/22/20 14:00 Sputum Culture - Final Staphylococcus Aureus Complete Laboratory Tests Test 09/25/20 04:00 09/25/20 06:00 09/25/20 09:10 White Blood Count 3.9 K/UL (4.8-10.8) #L Red Blood Count 2.95 M/UL (4.70-6.10) L Hemoglobin 9.4 G/DL (14.2-18.0) L Hematocrit 28.1 % (42.0-52.0) L Mean Corpuscular Volume 95 FL (80-99) Mean Corpuscular Hemoglobin 31.8 PG (27.0-31.0) H Mean Corpuscular Hemoglobin Concent 33.4 G/DL (32.0-36.0) Red Cell Distribution Width 14.5 % (11.6-14.8) Platelet Count 43 K/UL (150-450) L Mean Platelet Volume 11.7 FL (6.5-10.1) H Neutrophils (%) (Auto) % (45.0-75.0) Lymphocytes (%) (Auto) % (20.0-45.0) Monocytes (%) (Auto) % (1.0-10.0) Eosinophils (%) (Auto) % (0.0-3.0) Basophils (%) (Auto) % (0.0-2.0) Differential Total Cells Counted 100 Neutrophils % (Manual) 73 % (45-75) Lymphocytes % (Manual) 17 % (20-45) L Monocytes % (Manual) 9 % (1-10) Eosinophils % (Manual) 1 % (0-3) Basophils % (Manual) 0 % (0-2) Band Neutrophils 0 % (0-8) Platelet Estimate Decreased L Platelet Morphology Normal Anisocytosis 1+ Sodium Level 142 MMOL/L (136-145) Potassium Level 3.7 MMOL/L (3.5-5.1) Chloride Level 114 MMOL/L (98-107) H Carbon Dioxide Level 18 MMOL/L (21-32) L Anion Gap 10 mmol/L (5-15) Blood Urea Nitrogen 66 mg/dL (7-18) H Creatinine 4.0 MG/DL (0.55-1.30) H Estimat Glomerular Filtration Rate 14.8 mL/min (>60) Glucose Level 108 MG/DL (74-106) H Uric Acid 8.0 MG/DL (2.6-7.2) H Calcium Level 6.1 MG/DL (8.5-10.1) L Phosphorus Level 2.5 MG/DL (2.5-4.9) Magnesium Level 2.1 MG/DL (1.8-2.4) Total Bilirubin 1.3 MG/DL (0.2-1.0) H Direct Bilirubin 0.8 MG/DL (0.0-0.3) H Gamma Glutamyl Transpeptidase 43 U/L (5-85) Aspartate Amino Transf (AST/SGOT) 67 U/L (15-37) H Alanine Aminotransferase (ALT/SGPT) 35 U/L (12-78) Alkaline Phosphatase 146 U/L (46-116) H Total Creatine Kinase 632 U/L (26-308) H C-Reactive Protein, Quantitative 14.2 mg/dL (0.00-0.90) H Pro-B-Type Natriuretic Peptide 25347 pg/mL (0-125) H Total Protein 5.2 G/DL (6.4-8.2) L Albumin 2.0 G/DL (3.4-5.0) L Globulin 3.2 g/dL Albumin/Globulin Ratio 0.6 (1.0-2.7) L Random Vancomycin Level 19.1 ug/mL Urine Eosinophils None seen (NONE SEEN) Arterial Blood pH 7.365 (7.350-7.450) Arterial Blood Partial Pressure CO2 28.9 mmHg (35.0-45.0) L Arterial Blood Partial Pressure O2 111.7 mmHg (75.0-100.0) H Arterial Blood HCO3 16.1 mmol/L (22.0-26.0) *L Arterial Blood Oxygen Saturation 97.4 % (95-100) Arterial Blood Base Excess 8.1 (-2-2) H Kush Test Positive Current Medications Medications (Trade) Dose Ordered Sig/Fabrizio Route PRN Reason Start Time Stop Time Status Last Admin Dose Admin Acetaminophen (Tylenol) 650 mg Q4H PRN NG Mild Pain (Pain Scale 1-3) 09/23/20 13:30 10/23/20 13:29 09/23/20 13:42 Acetaminophen (Tylenol) 650 mg Q4H PRN NG Mild Pain (Pain Scale 1-3) 09/23/20 13:30 10/23/20 13:29 Albumin Human 500 ml @ 0 mls/hr Q0M ONCE IV 09/25/20 11:30 09/25/20 11:31 UNV Albuterol/ Ipratropium (Albuterol/ Ipratropium) 3 ml Q4H PRN HHN Shortness of Breath 09/21/20 23:45 09/26/20 23:44 Amiodarone HCl 900 mg/Dextrose 500 ml @ 16.667 mls/ hr Q24HRS IV 09/25/20 07:30 09/26/20 07:30 09/25/20 06:53 Chlorhexidine Gluconate (Jennifer-Hex 2%) 1 applic DAILY@2000 TOPIC 09/22/20 20:00 12/21/20 19:59 09/24/20 19:44 Dextrose/Sodium Chloride 1,000 ml @ 100 mls/hr Q10H IV 09/22/20 11:00 10/22/20 10:59 09/25/20 08:15 Digoxin (Lanoxin) 0.125 mg DAILY ORAL 09/24/20 09:00 12/23/20 08:59 09/25/20 08:17 Haloperidol Lactate (Haldol) 5 mg Q6H PRN IM Agitation 09/21/20 23:45 11/05/20 23:44 Heparin Sodium (Porcine) (Heparin 5000 units/ml) 5,000 units EVERY 12 HOURS SUBQ 09/22/20 09:00 11/06/20 08:59 09/22/20 21:00 Lorazepam (Ativan 2mg/ml 1ml) 2 mg Q2H PRN IV For Anxiety 09/21/20 23:45 09/28/20 23:44 09/24/20 23:48 Meropenem 500 mg/ Sodium Chloride 55 ml @ 110 mls/hr Q12HR IVPB 09/22/20 10:00 09/27/20 09:59 09/25/20 08:16 Morphine Sulfate (Morphine Sulfate) 4 mg Q4H PRN IVP Severe Pain (Pain Scale 7-10) 09/21/20 23:45 09/28/20 23:44 Norepinephrine Bitartrate 16 mg/ Sodium Chloride 500 ml @ 0 mls/hr Q24H IV 09/22/20 16:00 09/25/20 15:59 09/24/20 20:52 Ondansetron HCl (Zofran) 4 mg Q6H PRN IVP Nausea & Vomiting 09/21/20 23:45 10/21/20 23:44 Pantoprazole (Protonix) 40 mg Q12HR IVP 09/22/20 21:00 10/22/20 08:59 09/25/20 08:16 Polyethylene Glycol (Miralax) 17 gm DAILYPRN PRN ORAL Constipation 09/21/20 23:45 10/21/20 23:44 Vancomycin HCl (Vanco pharmacy to dose) 1 ea DAILY PRN MISC PER RX PROTOCOL 09/22/20 07:45 10/22/20 07:44 Rosaura Aviles M.D. Sep 25, 2020 11:24
--- NOTE | 2020-09-25 11:32 | Nephrology Progress Note ---
Assessment/Plan Problem List: (1) ANGI (acute kidney injury) (2) Septic shock (3) Hypernatremia (4) NSTEMI (non-ST elevated myocardial infarction) (5) Acute respiratory failure (6) Dehydration (7) Rhabdomyolysis Assessment Sepsis, shock Acute renal failure Acute respiratory failure Hypernatremia, dehydration Non-STEMI Plan September 25: Discussed with KRYSTYNA [place]. Off pressors. Renal parameters improving. Will cut down IV fluid and give albumin bolus. Will give high dose of vitamin D for 3 days. Will check vitamin D level. September 24: Seen in ICU. Remains intubated. Urine output improved. Serum creatinine lower. Serum CPK lower. Abnormal electrolytes addressed. Continue to monitor renal parameters. Albumin bolus given. IV rate down to 150 cc an hour. September 23: Patient intubated on ventilator. Full code. Labs reviewed. IV fluid adjusted. Abnormal electrolytes addressed. Monitor CPK for rhabdo Previously: Fluid challenge IV hydration Albumin 5% Water through NG tube Monitor renal parameters Antibiotics Urine studies Avoid nephrotoxic's Poor prognosis Patient full code Per orders Subjective ROS Limited/Unobtainable: Yes Objective Objective Last 24 Hour Vital Signs Date Time Temp Pulse Resp B/P (MAP) Pulse Ox O2 Delivery O2 Flow Rate FiO2 09/25/20 09:00 118 31 108/65 (79) 100 09/25/20 08:30 121 28 117/71 (86) 100 09/25/20 08:17 123 09/25/20 08:00 99.0 122 30 117/66 (83) 100 09/25/20 07:00 121 30 116/68 (84) 100 09/25/20 06:39 122 30 40 09/25/20 06:30 122 30 09/25/20 06:30 122 30 118/67 (84) 100 09/25/20 06:00 103/59 09/25/20 06:00 121 29 103/59 (74) 100 09/25/20 05:30 123 29 112/64 (80) 100 09/25/20 05:00 122 33 112/67 (82) 100 09/25/20 05:00 112/67 09/25/20 04:30 123 33 111/66 (81) 100 09/25/20 04:00 40 09/25/20 04:00 113/67 09/25/20 04:00 Mechanical Ventilator 09/25/20 04:00 98.8 119 34 113/67 (82) 100 09/25/20 04:00 123 09/25/20 03:30 118 34 117/67 (84) 100 09/25/20 03:00 113 34 108/64 (79) 100 09/25/20 03:00 108/64 09/25/20 02:30 129/68 09/25/20 02:30 123 31 129/68 (88) 100 09/25/20 02:00 120 34 130/79 (96) 100 09/25/20 02:00 130/79 09/25/20 01:45 98 28 40 09/25/20 01:30 119 34 124/66 (85) 100 09/25/20 01:00 121 29 109/69 (82) 100 09/25/20 01:00 109/69 09/25/20 00:30 123 29 124/73 (90) 100 09/25/20 00:18 120 32 119/65 100 09/25/20 00:00 Mechanical Ventilator 09/25/20 00:00 98.8 120 32 119/65 (83) 100 09/25/20 00:00 116/65 09/25/20 00:00 127 09/25/20 00:00 40 09/24/20 23:48 125 22 109/68 100 09/24/20 23:30 122 33 111/70 (84) 100 09/24/20 23:00 128/71 09/24/20 23:00 124 31 128/71 (90) 100 09/24/20 22:30 114 33 117/72 (87) 100 09/24/20 22:04 127 30 40 09/24/20 22:00 110 32 121/83 (96) 100 09/24/20 22:00 121/83 09/24/20 21:30 124 30 126/73 (90) 100 09/24/20 21:00 100 32 113/69 (84) 100 09/24/20 21:00 137/82 20 20:53 137/82 09/24/20 20:52 137/82 09/24/20 20:30 115 34 131/80 (97) 100 09/24/20 20:00 Mechanical Ventilator 09/24/20 20:00 117/77 09/24/20 20:00 124 12/25/20 20:00 40 09/24/20 20:00 98.7 122 34 117/77 (90) 100 09/24/20 19:30 124 31 128/81 (97) 100 09/24/20 19:05 124 26 50 09/24/20 19:00 127/71 09/24/20 19:00 124 32 127/71 (89) 100 09/24/20 18:30 116 29 128/70 (89) 100 09/24/20 18:09 124 29 137/81 100 09/24/20 18:00 127/77 09/24/20 18:00 115 30 127/77 (94) 100 09/24/20 17:45 104 28 120/67 (84) 100 09/24/20 17:39 111 29 160/79 100 09/24/20 17:30 113 24 160/79 (106) 100 09/24/20 17:00 153/85 09/24/20 17:00 98.7 119 32 153/85 (107) 100 09/24/20 16:45 122 32 92/58 (69) 100 09/24/20 16:30 122 33 89/58 (68) 100 09/24/20 16:15 123 30 91/64 (73) 100 09/24/20 16:00 127/79 09/24/20 16:00 122 09/24/20 16:00 127 33 127/79 (95) 100 09/24/20 16:00 40 09/24/20 16:00 Mechanical Ventilator 09/24/20 15:30 122 36 95/63 (74) 100 09/24/20 15:00 123/79 09/24/20 15:00 126 22 123/79 (94) 100 09/24/20 14:54 127 23 50 09/24/20 14:45 127 23 112/70 (84) 100 09/24/20 14:30 126 22 132/80 (97) 100 09/24/20 14:15 127 25 124/77 (93) 100 09/24/20 14:00 114/75 09/24/20 14:00 128 23 114/75 (88) 100 09/24/20 13:30 127 24 125/81 (96) 100 09/24/20 13:00 128 23 114/76 (89) 100 09/24/20 13:00 114/76 09/24/20 12:30 127 24 111/76 (88) 100 09/24/20 12:00 Mechanical Ventilator 09/24/20 12:00 98.2 127 24 134/80 (98) 100 09/24/20 12:00 134/80 09/24/20 11:33 127 Intake and Output 09/24/20 09/25/20 19:00 07:00 Intake Total 4060.823 ml 2206.737 ml Output Total 580 ml 1400 ml Balance 3480.823 ml 806.737 ml Intake Free Water 200 ml IV Total 3500.823 ml 1806.737 ml Tube Feeding 300 ml 400 ml Other 60 ml Output Urine Total 580 ml 1400 ml # Bowel Movements 2 Laboratory Tests 09/25/20 04:00: White Blood Count 3.9#L, Red Blood Count 2.95L, Hemoglobin 9.4L, Hematocrit 28.1L, Mean Corpuscular Volume 95, Mean Corpuscular Hemoglobin 31.8H, Mean Corpuscular Hemoglobin Concent 33.4, Red Cell Distribution Width 14.5, Platelet Count 43L, Mean Platelet Volume 11.7H, Neutrophils (%) (Auto) , Lymphocytes (%) (Auto) , Monocytes (%) (Auto) , Eosinophils (%) (Auto) , Basophils (%) (Auto) , Differential Total Cells Counted 100, Neutrophils % (Manual) 73, Lymphocytes % (Manual) 17L, Monocytes % (Manual) 9, Eosinophils % (Manual) 1, Basophils % (Manual) 0, Band Neutrophils 0, Platelet Estimate DecreasedL, Platelet Morphology Normal, Anisocytosis 1+, Sodium Level 142, Potassium Level 3.7, Chloride Level 114H, Carbon Dioxide Level 18L, Anion Gap 10, Blood Urea Nitrogen 66H, Creatinine 4.0H, Estimat Glomerular Filtration Rate 14.8, Glucose Level 108H, Uric Acid 8.0H, Calcium Level 6.1L, Phosphorus Level 2.5, Magnesium Level 2.1, Total Bilirubin 1.3H, Direct Bilirubin 0.8H, Gamma Glutamyl Transpeptidase 43, Aspartate Amino Transf (AST/SGOT) 67H, Alanine Aminotransferase (ALT/SGPT) 35, Alkaline Phosphatase 146H, Total Creatine Kinase 632H, C-Reactive Protein, Quantitative 14.2H, Pro-B-Type Natriuretic Peptide 17340Y, Total Protein 5.2L, Albumin 2.0L, Globulin 3.2, Albumin/Globulin Ratio 0.6L, Random Vancomycin Level 19.1 09/25/20 06:00: Urine Eosinophils None seen 09/25/20 09:10: Arterial Blood pH 7.365, Arterial Blood Partial Pressure CO2 28.9L, Arterial Blood Partial Pressure O2 111.7H, Arterial Blood HCO3 16.1*L, Arterial Blood Oxygen Saturation 97.4, Arterial Blood Base Excess 8.1H, Kush Test Positive Height (Feet): 5 Height (Inches): 9.00 Weight (Pounds): 190 General Appearance: no apparent distress EENT: other - Intubated on ventilator Cardiovascular: tachycardia Respiratory/Chest: decreased breath sounds Abdomen: distended Gelacio Mata MD Sep 25, 2020 11:32
[2020-09-25] MEDS ORDERED: Vitamin D 1000 units Tab GT SCH (13:00)
--- NOTE | 2020-09-25 13:30 | NUR ---
NURSE NOTES: Dr Aviles at bedside assessing pt. Updated her on pt's current condition. Pt will be taken off of airborne isolation d/t negative COVID results.
--- NOTE | 2020-09-25 14:10 | Surgery Progress Note ---
Surgery Progress Note Subjective Additional Comments ill appearing on support no n/v Objective Last 24 Hour Vital Signs Date Time Temp Pulse Resp B/P (MAP) Pulse Ox O2 Delivery O2 Flow Rate FiO2 09/25/20 13:12 116 29 40 09/25/20 12:00 Mechanical Ventilator 09/25/20 12:00 40 09/25/20 11:30 119 31 112/64 (80) 100 09/25/20 11:00 119 32 116/73 (87) 100 09/25/20 10:30 119 32 106/65 (79) 100 09/25/20 10:00 120 31 105/63 (77) 100 09/25/20 09:30 120 32 116/63 (80) 100 09/25/20 09:00 40 09/25/20 09:00 118 31 108/65 (79) 100 09/25/20 08:30 121 28 117/71 (86) 100 09/25/20 08:17 123 09/25/20 08:00 117/66 09/25/20 08:00 99.0 122 30 117/66 (83) 100 09/25/20 08:00 Mechanical Ventilator 09/25/20 07:00 121 30 116/68 (84) 100 09/25/20 06:39 122 30 40 09/25/20 06:30 122 30 09/25/20 06:30 122 30 118/67 (84) 100 09/25/20 06:00 103/59 09/25/20 06:00 121 29 103/59 (74) 100 09/25/20 05:30 123 29 112/64 (80) 100 09/25/20 05:00 122 33 112/67 (82) 100 09/25/20 05:00 112/67 09/25/20 04:30 123 33 111/66 (81) 100 09/25/20 04:00 40 09/25/20 04:00 113/67 09/25/20 04:00 Mechanical Ventilator 09/25/20 04:00 98.8 119 34 113/67 (82) 100 09/25/20 04:00 123 09/25/20 03:30 118 34 117/67 (84) 100 09/25/20 03:00 113 34 108/64 (79) 100 09/25/20 03:00 108/64 09/25/20 02:30 129/68 09/25/20 02:30 123 31 129/68 (88) 100 09/25/20 02:00 120 34 130/79 (96) 100 09/25/20 02:00 130/79 09/25/20 01:45 98 28 40 09/25/20 01:30 119 34 124/66 (85) 100 09/25/20 01:00 121 29 109/69 (82) 100 09/25/20 01:00 109/69 09/25/20 00:30 123 29 124/73 (90) 100 09/25/20 00:18 120 32 119/65 100 09/25/20 00:00 Mechanical Ventilator 09/25/20 00:00 98.8 120 32 119/65 (83) 100 09/25/20 00:00 116/65 09/25/20 00:00 127 09/25/20 00:00 40 09/24/20 23:48 125 22 109/68 100 09/24/20 23:30 122 33 111/70 (84) 100 09/24/20 23:00 128/71 09/24/20 23:00 124 31 128/71 (90) 100 09/24/20 22:30 114 33 117/72 (87) 100 09/24/20 22:04 127 30 40 09/24/20 22:00 110 32 121/83 (96) 100 09/24/20 22:00 121/83 09/24/20 21:30 124 30 126/73 (90) 100 09/24/20 21:00 100 32 113/69 (84) 100 09/24/20 21:00 137/82 09/24/20 20:53 137/82 09/24/20 20:52 137/82 09/24/20 20:30 115 34 131/80 (97) 100 09/24/20 20:00 Mechanical Ventilator 09/24/20 20:00 117/77 09/24/20 20:00 124 09/24/20 20:00 40 09/24/20 20:00 98.7 122 34 117/77 (90) 100 09/24/20 19:30 124 31 128/81 (97) 100 09/24/20 19:05 124 26 50 09/24/20 19:00 127/71 12/25/20 19:00 124 32 127/71 (89) 100 09/24/20 18:30 116 29 128/70 (89) 100 09/24/20 18:09 124 29 137/81 100 09/24/20 18:00 127/77 09/24/20 18:00 115 30 127/77 (94) 100 09/24/20 17:45 104 28 120/67 (84) 100 09/24/20 17:39 111 29 160/79 100 09/24/20 17:30 113 24 160/79 (106) 100 09/24/20 17:00 153/85 09/24/20 17:00 98.7 119 32 153/85 (107) 100 09/24/20 16:45 122 32 92/58 (69) 100 09/24/20 16:30 122 33 89/58 (68) 100 09/24/20 16:15 123 30 91/64 (73) 100 09/24/20 16:00 127/79 09/24/20 16:00 122 09/24/20 16:00 127 33 127/79 (95) 100 09/24/20 16:00 40 09/24/20 16:00 Mechanical Ventilator 09/24/20 15:30 122 36 95/63 (74) 100 09/24/20 15:00 123/79 09/24/20 15:00 126 22 123/79 (94) 100 09/24/20 14:54 127 23 50 09/24/20 14:45 127 23 112/70 (84) 100 09/24/20 14:30 126 22 132/80 (97) 100 09/24/20 14:15 127 25 124/77 (93) 100 I&O Intake and Output 09/24/20 09/25/20 19:00 07:00 Intake Total 4060.823 ml 2206.737 ml Output Total 580 ml 1400 ml Balance 3480.823 ml 806.737 ml Intake Free Water 200 ml IV Total 3500.823 ml 1806.737 ml Tube Feeding 300 ml 400 ml Other 60 ml Output Urine Total 580 ml 1400 ml # Bowel Movements 2 Dressing: saturated Cardiovascular: RSR Respiratory: decreased breath sounds Abdomen: soft, non-tender, present bowel sounds Extremities: no tenderness, no cyanosis Laboratory Tests Test 09/25/20 04:00 09/25/20 06:00 09/25/20 09:10 White Blood Count 3.9 K/UL (4.8-10.8) #L Red Blood Count 2.95 M/UL (4.70-6.10) L Hemoglobin 9.4 G/DL (14.2-18.0) L Hematocrit 28.1 % (42.0-52.0) L Mean Corpuscular Volume 95 FL (80-99) Mean Corpuscular Hemoglobin 31.8 PG (27.0-31.0) H Mean Corpuscular Hemoglobin Concent 33.4 G/DL (32.0-36.0) Red Cell Distribution Width 14.5 % (11.6-14.8) Platelet Count 43 K/UL (150-450) L Mean Platelet Volume 11.7 FL (6.5-10.1) H Neutrophils (%) (Auto) % (45.0-75.0) Lymphocytes (%) (Auto) % (20.0-45.0) Monocytes (%) (Auto) % (1.0-10.0) Eosinophils (%) (Auto) % (0.0-3.0) Basophils (%) (Auto) % (0.0-2.0) Differential Total Cells Counted 100 Neutrophils % (Manual) 73 % (45-75) Lymphocytes % (Manual) 17 % (20-45) L Monocytes % (Manual) 9 % (1-10) Eosinophils % (Manual) 1 % (0-3) Basophils % (Manual) 0 % (0-2) Band Neutrophils 0 % (0-8) Platelet Estimate Decreased L Platelet Morphology Normal Anisocytosis 1+ Sodium Level 142 MMOL/L (136-145) Potassium Level 3.7 MMOL/L (3.5-5.1) Chloride Level 114 MMOL/L (98-107) H Carbon Dioxide Level 18 MMOL/L (21-32) L Anion Gap 10 mmol/L (5-15) Blood Urea Nitrogen 66 mg/dL (7-18) H Creatinine 4.0 MG/DL (0.55-1.30) H Estimat Glomerular Filtration Rate 14.8 mL/min (>60) Glucose Level 108 MG/DL (74-106) H Uric Acid 8.0 MG/DL (2.6-7.2) H Calcium Level 6.1 MG/DL (8.5-10.1) L Phosphorus Level 2.5 MG/DL (2.5-4.9) Magnesium Level 2.1 MG/DL (1.8-2.4) Total Bilirubin 1.3 MG/DL (0.2-1.0) H Direct Bilirubin 0.8 MG/DL (0.0-0.3) H Gamma Glutamyl Transpeptidase 43 U/L (5-85) Aspartate Amino Transf (AST/SGOT) 67 U/L (15-37) H Alanine Aminotransferase (ALT/SGPT) 35 U/L (12-78) Alkaline Phosphatase 146 U/L (46-116) H Total Creatine Kinase 632 U/L (26-308) H C-Reactive Protein, Quantitative 14.2 mg/dL (0.00-0.90) H Pro-B-Type Natriuretic Peptide 90185 pg/mL (0-125) H Total Protein 5.2 G/DL (6.4-8.2) L Albumin 2.0 G/DL (3.4-5.0) L Globulin 3.2 g/dL Albumin/Globulin Ratio 0.6 (1.0-2.7) L Random Vancomycin Level 19.1 ug/mL Urine Eosinophils None seen (NONE SEEN) Arterial Blood pH 7.365 (7.350-7.450) Arterial Blood Partial Pressure CO2 28.9 mmHg (35.0-45.0) L Arterial Blood Partial Pressure O2 111.7 mmHg (75.0-100.0) H Arterial Blood HCO3 16.1 mmol/L (22.0-26.0) *L Arterial Blood Oxygen Saturation 97.4 % (95-100) Arterial Blood Base Excess 8.1 (-2-2) H Kush Test Positive Plan Problems: (1) Septic shock Assessment & Plan: anemia lactic acidosis elevated t bili / d bili imaging reviewed ill appearing weaning pressors as tolerated local care provided will follow with recs thank you Pt presented on admission with multiple Pressure Injuries.Cat 3 Skin Tear pily L chest. Base of wound is moist ,viable with 100% flap loss.No exudate noted. Cat 2 Skin Tear ventral L forearm. 20% skin flap loss,80% flap in-situ. Cat 2 Skin tear dorsal L forearm with 10% flap loss,90% skin flap in situ. Sacral DTPI(L)12cm x (W)17.5cm. Base of Pressure injury maroon with scattered Purpuric areas within base of injury. Surrounding non-blanchable erythema without induration. Perianal area is erythematous. Partial Thickness Pressure injury at head of penis. Base of wound is moist and viable. Both R and L Heels are Boggy with Non-blanchable erythema. Tx.Plan: Apply Optifoam drsgs to L chest, L forearm. Change every 7 days and prn. Apply Moisture Barrier Past to sacrum. Cover with Optifoam drsg. Change every 3 days and prn. Apply Moisture Barrier Paste to penis and Perianal areas with each incontinence care. Apply Cavilon Skin Barrier to both heels. Cover each heel with Optifoam drsg. Change every 7 days and prn. Reposition at least every 2hours or as tolerated. Off-load heels with Pillow. APM/JARED Mattress. DAILY ESTIMATED NEEDS: Needs based on Critical care, wound, ARF/ 77kg abw 22-28 kcals/kg 3055-0262 total kcals 0.8-1.25 (increase w/ renal improvement) g protein/kg 61-96 g total protein 20-25 mL/kg 7960-7316 total fluid mLs NUTRITION DIAGNOSIS: Swallowing difficulty r/t respiratory failure as evidenced by orally intubated upon adm, now s/p code blue (09/22), on pressor support. CURRENT TF:npo PO DIET RECOMMENDATIONS: [employer] CHIEF eval post extubation ENTERAL NUTRITION RECOMMENDATIONS: Glucerna 1.2 @ 60ml/hr x 24 hrs to provide 1440ml, 1728kcal, 86g prot, 1159ml free water * WITH HEMODYNAMIC STABILITY -> Initiate Glucerna 1.2 @ 20ml/hrs x 6 hrs, advance 10ml q 4-6 hrs as to lerated to goal -> Flush per MD. HOB over 30 degrees -> Monitor renal fxn and lytes, need for renal TF of Nepro Without hemodynamic stability: rec trophic feeding of Glucerna 1.2 @ 10- 15ml/hr x 24 hrs ADDITIONAL RECOMMENDATIONS: * Calibrated bedscale wt * Monitor hemodynamic stability, ability to feed * Monitor renal fxn and lytes, need for renal TF formula (creat wnl last adm -> 5.2 at this time, K wnl, phos and mag low) * NISS w/ TF * Wound healing: f/up w/ WC eval, add Omar BID w/ TF (2) Multiorgan failure (3) Rapid atrial fibrillation (4) Compression fracture of L3 vertebra (5) Social isolation (6) Impaired mobility and ADLs (7) UTI (urinary tract infection) (8) Suicidal ideations (9) HTN (hypertension) (10) Failure to thrive in adult (11) Renal failure (ARF), acute on chronic (12) ANGI (acute kidney injury) (13) BPH (benign prostatic hyperplasia) (14) Schizoaffective disorder (15) Sick sinus syndrome (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 There is retrocardiac consolidation which is increased. Left upper lung, right lung and pleural space are clear. There is a left chest bifocal pacemaker. Stable satisfactory positions of endotracheal and orogastric tubes. Impression: Increased left pleural effusion and retrocardiac consolidation. Eber Slater Sep 25, 2020 14:10
--- NOTE | 2020-09-25 15:00 | NUR ---
NURSE NOTES: Amiodarone drip continues to run @ 0.5mg/min. Levophed remains held as pt's B/P holding SBP>90.
--- NOTE | 2020-09-25 15:50 | NUR ---
NURSE NOTES: Dr Rothman at bedside assessing pt. Updated him on pt's current condition. No new orders given
--- NOTE | 2020-09-25 16:02 | Pulmonolgy Critical Care Note ---
Critical Care - Asmt/Plan Problems: (1) Multiorgan failure (2) Septic shock (3) Acute respiratory failure (4) Rapid atrial fibrillation (5) ARF (acute renal failure) (6) Pulseless ventricular tachycardia (7) Cardiopulmonary arrest (8) Schizoaffective disorder Respiratory: adjust tidal volume, monitor respiratory rate, adjust FIO2, CXR Cardiac: start pressors, continue to monitor HR/BP Renal: F/U I&O, check electrolytes Infectious Disease: check cultures Gastrointestinal: continue feedings/current rate Endocrine: monitor blood sugar, continue sliding scale insulin Hematologic: transfuse if hgb<8.5 Neurologic: keep patient comfortable Prophylaxis: Protonix Disposition: keep in ICU Notes Reviewed: system manager, cardio, renal Discussed with: nurses, consultants, director case managementmanager commercial - Objective Last 24 Hour Vital Signs Date Time Temp Pulse Resp B/P (MAP) Pulse Ox O2 Delivery O2 Flow Rate FiO2 09/25/20 15:00 116 25 114/65 (81) 100 09/25/20 14:30 115 30 110/65 (80) 97 09/25/20 14:00 115 28 90/47 (61) 100 09/25/20 13:30 116 25 101/60 (74) 100 09/25/20 13:12 116 29 40 09/25/20 13:00 117 26 116/65 (82) 100 09/25/20 12:30 119 28 110/70 (83) 100 09/25/20 12:00 Mechanical Ventilator 09/25/20 12:00 119 09/25/20 12:00 98.6 119 29 106/62 (77) 100 09/25/20 12:00 40 09/25/20 11:30 119 31 112/64 (80) 100 09/25/20 11:00 119 32 116/73 (87) 100 09/25/20 10:30 119 32 106/65 (79) 100 09/25/20 10:00 120 31 105/63 (77) 100 09/25/20 09:30 120 32 116/63 (80) 100 09/25/20 09:00 40 09/25/20 09:00 118 31 108/65 (79) 100 09/25/20 08:30 121 28 117/71 (86) 100 09/25/20 08:17 123 09/25/20 08:00 117/66 09/25/20 08:00 99.0 122 30 117/66 (83) 100 09/25/20 08:00 Mechanical Ventilator 09/25/20 08:00 122 09/25/20 07:00 121 30 116/68 (84) 100 09/25/20 06:39 122 30 40 09/25/20 06:30 122 30 09/25/20 06:30 122 30 118/67 (84) 100 09/25/20 06:00 103/59 09/25/20 06:00 121 29 103/59 (74) 100 09/25/20 05:30 123 29 112/64 (80) 100 09/25/20 05:00 122 33 112/67 (82) 100 09/25/20 05:00 112/67 09/25/20 04:30 123 33 111/66 (81) 100 09/25/20 04:00 40 09/25/20 04:00 113/67 09/25/20 04:00 Mechanical Ventilator 09/25/20 04:00 98.8 119 34 113/67 (82) 100 09/25/20 04:00 123 09/25/20 03:30 118 34 117/67 (84) 100 09/25/20 03:00 113 34 108/64 (79) 100 09/25/20 03:00 108/64 09/25/20 02:30 129/68 09/25/20 02:30 123 31 129/68 (88) 100 09/25/20 02:00 120 34 130/79 (96) 100 09/25/20 02:00 130/79 09/25/20 01:45 98 28 40 09/25/20 01:30 119 34 124/66 (85) 100 09/25/20 01:00 121 29 109/69 (82) 100 09/25/20 01:00 109/69 09/25/20 00:30 123 29 124/73 (90) 100 09/25/20 00:18 120 32 119/65 100 09/25/20 00:00 Mechanical Ventilator 09/25/20 00:00 98.8 120 32 119/65 (83) 100 09/25/20 00:00 116/65 09/25/20 00:00 127 09/25/20 00:00 40 09/24/20 23:48 125 22 109/68 100 09/24/20 23:30 122 33 111/70 (84) 100 20 23:00 128/71 09/24/20 23:00 124 31 128/71 (90) 100 09/24/20 22:30 114 33 117/72 (87) 100 09/24/20 22:04 127 30 40 09/24/20 22:00 110 32 121/83 (96) 100 09/24/20 22:00 121/83 09/24/20 21:30 124 30 126/73 (90) 100 09/24/20 21:00 100 32 113/69 (84) 100 09/24/20 21:00 137/82 09/24/20 20:53 137/82 09/24/20 20:52 137/82 09/24/20 20:30 115 34 131/80 (97) 100 09/24/20 20:00 Mechanical Ventilator 09/24/20 20:00 117/77 09/24/20 20:00 124 09/24/20 20:00 40 09/24/20 20:00 98.7 122 34 117/77 (90) 100 09/24/20 19:30 124 31 128/81 (97) 100 09/24/20 19:05 124 26 50 09/24/20 19:00 127/71 09/24/20 19:00 124 32 127/71 (89) 100 09/24/20 18:30 116 29 128/70 (89) 100 09/24/20 18:09 124 29 137/81 100 09/24/20 18:00 127/77 09/24/20 18:00 115 30 127/77 (94) 100 09/24/20 17:45 104 28 120/67 (84) 100 09/24/20 17:39 111 29 160/79 100 09/24/20 17:30 113 24 160/79 (106) 100 09/24/20 17:00 153/85 09/24/20 17:00 98.7 119 32 153/85 (107) 100 09/24/20 16:45 122 32 92/58 (69) 100 09/24/20 16:30 122 33 89/58 (68) 100 09/24/20 16:15 123 30 91/64 (73) 100 09/24/20 16:00 127/79 12/25/20 16:00 122 09/24/20 16:00 127 33 127/79 (95) 100 09/24/20 16:00 40 09/24/20 16:00 Mechanical Ventilator Status: sedated Condition: critical HEENT: atraumatic Neck: full ROM Heart: HR/BP stable Abdomen: soft, feeding tube Micro: Microbiology Date/Time Source Procedure Growth Status 09/23/20 16:30 Blood Blood Culture - Preliminary NO GROWTH AFTER 24 HOURS Resulted Critical Care - Subjective ROS Limited/Unobtainable: Yes Condition: critical EKG Rhythm: Sinus Rhythm FI02: 40 Vent Support Breath Rate: 16 Vent Support Mode: AC Vent Tidal Volume: 650 Sputum Amount: Scant PEEP: 8.0 PIP: 38 Tube Feeding Amount: 45 I&O: Intake and Output 09/24/20 09/25/20 19:00 07:00 Intake Total 4060.823 ml 2206.737 ml Output Total 580 ml 1400 ml Balance 3480.823 ml 806.737 ml Intake Free Water 200 ml IV Total 3500.823 ml 1806.737 ml Tube Feeding 300 ml 400 ml Other 60 ml Output Urine Total 580 ml 1400 ml # Bowel Movements 2 CXR: There is been increase in left lower lobe infiltrate, suspicious for pneumonia. ET-Tube: 7.5 ET Position: 25 Labs: Laboratory Tests Test 09/25/20 04:00 09/25/20 06:00 09/25/20 09:10 White Blood Count 3.9 K/UL (4.8-10.8) #L Red Blood Count 2.95 M/UL (4.70-6.10) L Hemoglobin 9.4 G/DL (14.2-18.0) L Hematocrit 28.1 % (42.0-52.0) L Mean Corpuscular Volume 95 FL (80-99) Mean Corpuscular Hemoglobin 31.8 PG (27.0-31.0) H Mean Corpuscular Hemoglobin Concent 33.4 G/DL (32.0-36.0) Red Cell Distribution Width 14.5 % (11.6-14.8) Platelet Count 43 K/UL (150-450) L Mean Platelet Volume 11.7 FL (6.5-10.1) H Neutrophils (%) (Auto) % (45.0-75.0) Lymphocytes (%) (Auto) % (20.0-45.0) Monocytes (%) (Auto) % (1.0-10.0) Eosinophils (%) (Auto) % (0.0-3.0) Basophils (%) (Auto) % (0.0-2.0) Differential Total Cells Counted 100 Neutrophils % (Manual) 73 % (45-75) Lymphocytes % (Manual) 17 % (20-45) L Monocytes % (Manual) 9 % (1-10) Eosinophils % (Manual) 1 % (0-3) Basophils % (Manual) 0 % (0-2) Band Neutrophils 0 % (0-8) Platelet Estimate Decreased L Platelet Morphology Normal Anisocytosis 1+ Sodium Level 142 MMOL/L (136-145) Potassium Level 3.7 MMOL/L (3.5-5.1) Chloride Level 114 MMOL/L (98-107) H Carbon Dioxide Level 18 MMOL/L (21-32) L Anion Gap 10 mmol/L (5-15) Blood Urea Nitrogen 66 mg/dL (7-18) H Creatinine 4.0 MG/DL (0.55-1.30) H Estimat Glomerular Filtration Rate 14.8 mL/min (>60) Glucose Level 108 MG/DL (74-106) H Uric Acid 8.0 MG/DL (2.6-7.2) H Calcium Level 6.1 MG/DL (8.5-10.1) L Phosphorus Level 2.5 MG/DL (2.5-4.9) Magnesium Level 2.1 MG/DL (1.8-2.4) Total Bilirubin 1.3 MG/DL (0.2-1.0) H Direct Bilirubin 0.8 MG/DL (0.0-0.3) H Gamma Glutamyl Transpeptidase 43 U/L (5-85) Aspartate Amino Transf (AST/SGOT) 67 U/L (15-37) H Alanine Aminotransferase (ALT/SGPT) 35 U/L (12-78) Alkaline Phosphatase 146 U/L (46-116) H Total Creatine Kinase 632 U/L (26-308) H C-Reactive Protein, Quantitative 14.2 mg/dL (0.00-0.90) H Pro-B-Type Natriuretic Peptide 44867 pg/mL (0-125) H Total Protein 5.2 G/DL (6.4-8.2) L Albumin 2.0 G/DL (3.4-5.0) L Globulin 3.2 g/dL Albumin/Globulin Ratio 0.6 (1.0-2.7) L Random Vancomycin Level 19.1 ug/mL Urine Eosinophils None seen (NONE SEEN) Arterial Blood pH 7.365 (7.350-7.450) Arterial Blood Partial Pressure CO2 28.9 mmHg (35.0-45.0) L Arterial Blood Partial Pressure O2 111.7 mmHg (75.0-100.0) H Arterial Blood HCO3 16.1 mmol/L (22.0-26.0) *L Arterial Blood Oxygen Saturation 97.4 % (95-100) Arterial Blood Base Excess 8.1 (-2-2) H Kush Test Positive Jaclyn Byrne MD Sep 25, 2020 16:02
--- NOTE | 2020-09-25 17:05 | NUR ---
NURSE NOTES: Pt fully cleaned and linens changed. No BM noted, however, mucus-like consistency noted coming from the rectum.
--- NOTE | 2020-09-25 17:18 | Internal Med Progress Note ---
Subjective Physician Name Andrés Rothman Attending Physician Andrés Rothman MD Current Medications Medications (Trade) Dose Ordered Sig/Fabrizio Route PRN Reason Start Time Stop Time Status Last Admin Dose Admin Acetaminophen (Tylenol) 650 mg Q4H PRN NG Mild Pain (Pain Scale 1-3) 09/23/20 13:30 10/23/20 13:29 09/23/20 13:42 Acetaminophen (Tylenol) 650 mg Q4H PRN NG Mild Pain (Pain Scale 1-3) 09/23/20 13:30 10/23/20 13:29 Albuterol/ Ipratropium (Albuterol/ Ipratropium) 3 ml Q4H PRN HHN Shortness of Breath 09/21/20 23:45 09/26/20 23:44 Amiodarone HCl 900 mg/Dextrose 500 ml @ 16.667 mls/ hr Q24HRS IV 09/25/20 07:30 09/26/20 07:30 09/25/20 06:53 Chlorhexidine Gluconate (Jennifer-Hex 2%) 1 applic DAILY@2000 TOPIC 09/22/20 20:00 12/21/20 19:59 09/24/20 19:44 Dextrose/Sodium Chloride 1,000 ml @ 100 mls/hr Q10H IV 09/22/20 11:00 10/22/20 10:59 09/25/20 17:01 Digoxin (Lanoxin) 0.125 mg DAILY ORAL 09/24/20 09:00 12/23/20 08:59 09/25/20 08:17 Haloperidol Lactate (Haldol) 5 mg Q6H PRN IM Agitation 09/21/20 23:45 11/05/20 23:44 Heparin Sodium (Porcine) (Heparin 5000 units/ml) 5,000 units EVERY 12 HOURS SUBQ 09/22/20 09:00 11/06/20 08:59 09/22/20 21:00 Lorazepam (Ativan 2mg/ml 1ml) 2 mg Q2H PRN IV For Anxiety 09/21/20 23:45 09/28/20 23:44 09/24/20 23:48 Meropenem 500 mg/ Sodium Chloride 55 ml @ 110 mls/hr Q12HR IVPB 09/22/20 10:00 09/27/20 09:59 09/25/20 08:16 Morphine Sulfate (Morphine Sulfate) 4 mg Q4H PRN IVP Severe Pain (Pain Scale 7-10) 09/21/20 23:45 09/28/20 23:44 Ondansetron HCl (Zofran) 4 mg Q6H PRN IVP Nausea & Vomiting 09/21/20 23:45 10/21/20 23:44 Pantoprazole (Protonix) 40 mg Q12HR IVP 09/22/20 21:00 10/22/20 08:59 09/25/20 08:16 Polyethylene Glycol (Miralax) 17 gm DAILYPRN PRN ORAL Constipation 09/21/20 23:45 10/21/20 23:44 Vancomycin HCl ([facility] pharmacy to dose) 1 ea DAILY PRN MISC PER RX PROTOCOL 09/22/20 07:45 10/22/20 07:44 Vitamin D (Vitamin D) 20,000 unit DAILY GT 09/26/20 09:00 09/27/20 09:01 Allergies: Coded Allergies: No Known Allergies (Unverified , 07/22/20) Subjective in ICU, intubated remained on ventilation, unable to follow commands, unresponsive, WBC: 3.9, renal function improving presently off pressor. Objective Last Vital Signs Date Time Temp Pulse Resp B/P (MAP) Pulse Ox O2 Delivery O2 Flow Rate FiO2 09/25/20 17:00 116 30 96/63 (74) 100 09/25/20 16:00 Mechanical Ventilator 09/25/20 16:00 98.4 09/25/20 16:00 40 09/22/20 08:00 15.0 Laboratory Tests Test 09/25/20 04:00 09/25/20 06:00 09/25/20 09:10 White Blood Count 3.9 K/UL (4.8-10.8) #L Red Blood Count 2.95 M/UL (4.70-6.10) L Hemoglobin 9.4 G/DL (14.2-18.0) L Hematocrit 28.1 % (42.0-52.0) L Mean Corpuscular Volume 95 FL (80-99) Mean Corpuscular Hemoglobin 31.8 PG (27.0-31.0) H Mean Corpuscular Hemoglobin Concent 33.4 G/DL (32.0-36.0) Red Cell Distribution Width 14.5 % (11.6-14.8) Platelet Count 43 K/UL (150-450) L Mean Platelet Volume 11.7 FL (6.5-10.1) H Neutrophils (%) (Auto) % (45.0-75.0) Lymphocytes (%) (Auto) % (20.0-45.0) Monocytes (%) (Auto) % (1.0-10.0) Eosinophils (%) (Auto) % (0.0-3.0) Basophils (%) (Auto) % (0.0-2.0) Differential Total Cells Counted 100 Neutrophils % (Manual) 73 % (45-75) Lymphocytes % (Manual) 17 % (20-45) L Monocytes % (Manual) 9 % (1-10) Eosinophils % (Manual) 1 % (0-3) Basophils % (Manual) 0 % (0-2) Band Neutrophils 0 % (0-8) Platelet Estimate Decreased L Platelet Morphology Normal Anisocytosis 1+ Sodium Level 142 MMOL/L (136-145) Potassium Level 3.7 MMOL/L (3.5-5.1) Chloride Level 114 MMOL/L (98-107) H Carbon Dioxide Level 18 MMOL/L (21-32) L Anion Gap 10 mmol/L (5-15) Blood Urea Nitrogen 66 mg/dL (7-18) H Creatinine 4.0 MG/DL (0.55-1.30) H Estimat Glomerular Filtration Rate 14.8 mL/min (>60) Glucose Level 108 MG/DL (74-106) H Uric Acid 8.0 MG/DL (2.6-7.2) H Calcium Level 6.1 MG/DL (8.5-10.1) L Phosphorus Level 2.5 MG/DL (2.5-4.9) Magnesium Level 2.1 MG/DL (1.8-2.4) Total Bilirubin 1.3 MG/DL (0.2-1.0) H Direct Bilirubin 0.8 MG/DL (0.0-0.3) H Gamma Glutamyl Transpeptidase 43 U/L (5-85) Aspartate Amino Transf (AST/SGOT) 67 U/L (15-37) H Alanine Aminotransferase (ALT/SGPT) 35 U/L (12-78) Alkaline Phosphatase 146 U/L (46-116) H Total Creatine Kinase 632 U/L (26-308) H C-Reactive Protein, Quantitative 14.2 mg/dL (0.00-0.90) H Pro-B-Type Natriuretic Peptide 92947 pg/mL (0-125) H Total Protein 5.2 G/DL (6.4-8.2) L Albumin 2.0 G/DL (3.4-5.0) L Globulin 3.2 g/dL Albumin/Globulin Ratio 0.6 (1.0-2.7) L Random Vancomycin Level 19.1 ug/mL Urine Eosinophils None seen (NONE SEEN) Arterial Blood pH 7.365 (7.350-7.450) Arterial Blood Partial Pressure CO2 28.9 mmHg (35.0-45.0) L Arterial Blood Partial Pressure O2 111.7 mmHg (75.0-100.0) H Arterial Blood HCO3 16.1 mmol/L (22.0-26.0) *L Arterial Blood Oxygen Saturation 97.4 % (95-100) Arterial Blood Base Excess 8.1 (-2-2) H Kush Test Positive Microbiology Date/Time Source Procedure Growth Status 09/23/20 16:30 Blood Blood Culture - Preliminary NO GROWTH AFTER 24 HOURS Resulted Intake and Output 09/24/20 09/25/20 19:00 07:00 Intake Total 4060.823 ml 2206.737 ml Output Total 580 ml 1400 ml Balance 3480.823 ml 806.737 ml Intake Free Water 200 ml IV Total 3500.823 ml 1806.737 ml Tube Feeding 300 ml 400 ml Other 60 ml Output Urine Total 580 ml 1400 ml # Bowel Movements 2 Objective General: remain on ventilation, unresponsive, cannot follow commands. HEENT: NCAT, sclera anicteric, PERRL, ET Tube, OG Tube. Neck: Supple, no significant jugular venous distention, Lungs: mechanical breath sounds, decreased air at the bases, no wheezes. Heart: S1, S2, regular rate, tachycardia,, normal S1/S2, no murmurs, pacemaker at left side chest wall. Abdomen: soft, nontender, nondistended. Normoactive bowel sounds. : Whiting catheter. Extremities: No Cyanosis , clubbing or edema. Neuro: limited secondary to patient's status, unable to follow commands. Assessment/Plan Assessment/Plan ASSESSMENT: This is a 75-year-old white male with: 1. Pneumonia. 2. Acute hypoxemic Respiratory failure. 3. Septic shock. 4. Non-ST elevated myocardial infarction. 5. Hypertension. 6. Benign prostatic hypertrophy. 7. Alzheimer's dementia. 8. Depression. 9. status post cardiopulmonary arrest / PEA arrest (09/22/2020) 10. Atrial fibrillation with rapid ventricular rate. 11. Acute renal failure on chronic renal insufficiency. 12. hypernatremia. 13. Multiorgan failure. 14. Acute E. coli UTI. 15. MRSA sepsis/bacteremia. 16. NSTEMI 17. sick sinus syndrome status post a pacemaker on 08/27/2020. TREATMENT: 1. Pneumonia. Abx: meropenem and vancomycin. An Infectious Disease consultation has been obtained with Dr. Aviles. Follow recommendations of Infectious Disease. A Pulmonary consultation has been obtained with Dr. Jaclyn Byrne. 2. Septic shock. The patient is currently on vasopressin. 3. Non-ST elevated myocardial infarction. A Cardiology consultation has been obtained with Dr. Carlos Eduardo Crespo. Follow recommendations of Cardiology. 4. Hypertension. The patient is currently hypotensive. Hold antihypertensive medication. 5. Benign prostatic hypertrophy. Continue Flomax as above. 6. Alzheimer's dementia. 7. History of schizophrenia/depression. 8. Pacemaker in situ. tolerated tube feeding at 45 cc/hr. on Amiodarone drip Pressors: off CODE STATUS: Full code. DVT prophylaxis: heparin subcu. CXR: There is been increase in left lower lobe infiltrate, suspicious for pneumonia. Andrés Rothman MD Sep 25, 2020 17:18
--- NOTE | 2020-09-25 19:20 | NUR ---
NURSE HAND-OFF REPORT: Latest Vital Signs: Temperature 98.4 , Pulse 115 , B/P 110 /66 , Respiratory Rate 32 , O2 SAT 100 , Mechanical Ventilator, FiO2 40% . Vital Sign Comment: EKG Rhythm: Sinus Tachycardia Rhythm change?: N Notified?: N -Dr Cherie STOUT Response: Latest Robertson Fall Score: 75 Fall Risk: High Risk Safety Measures: Call light Within Reach, Bed Alarm Zone 1, Side Rails Side Rails x2, Bed position Low and Locked. Fall Precautions: Yellow Socks Yellow Gown Door Sign Patient Fall Education Report given to KRYSTYNA Stephenson.
[2020-09-25] MEDS: Dyna-Hex 2% Top Sol 2oz TOPIC SCH (19:42)
--- NOTE | 2020-09-25 20:00 | NUR ---
NURSE NOTES: Received report from KRYSTYNA [place]. Pt is resting on the bed and obtunded. Pt has ETT and orally intubated. Vent dependent and setting with AC: 16, T:650, P : 8, FiO2 40% and SaO2 99-100% noted. given suction and oral care. on byproducts operator with A-fib and pacing. Pt has Lt. chest pace maker. HR is fluctuated. But noted weak pulse. No sign of pain by FLACC scale. Noted pupil reflex with light. Pt able to response to deep pain. Pt has OGT and in placed but noted residual 100cc. Hold OGT feeding at this time. Pt has Whiting cath and patent and drainage well. Dressing is clean and dry on wound area. On P-200 mattress for wound management. Pt has Rt. Femoral TLC and dressing is intact. Off the Levophed drip. On running with amiodarone drip @ 0.5mg/min for maintenance and D51/4NS @ 100cc/hr. Placed fall precaution. Will continue to care plan.
[2020-09-25] MEDS ORDERED: Amiodarone 200mg tab ORAL SCH (21:00)
--- NOTE | 2020-09-25 21:00 | NUR ---
NURSE NOTES: Dr. Crespo visited and assessed Pt. New order received carried out. Will continue to monitor any change of condition.
[2020-09-25] MEDS: Amiodarone 200mg tab NG SCH (21:42)
--- NOTE | 2020-09-25 21:50 | Cardiac Electrophysiology PN ---
Assessment/Plan Assessment/Plan 1. Atrial fib with RVR and Episode of pulseless electrical activity after ventricular tachycardia. On Amiodrip per pharmacy and Dig 0.125 po daily. Dig level is 1.0. Change iv Amio to 400 po bid 2. NSTEMI 3.0 could be due to renal failure as well as septic shock. 3. Septic and hypovolemic shock. On iv fluid and Abx 4. Respiratory failure, on the ventilator, 100% FiO2 on a PEEP of 15 5. Severe azotemia with sodium of 170 and very high BUN and creatinine. Cr still 5.2 The patient is on D5 and quarter-normal saline at 200 mL/hour per Dr. Mata. LISA RN Subjective Subjective In ICU on the vent with 40% Fio2 and off Levo since noon today. Got Dig 0.5 for atrial fib with RVR. HR 90s in atrial fib. Objective Last 24 Hour Vital Signs Date Time Temp Pulse Resp B/P (MAP) Pulse Ox O2 Delivery O2 Flow Rate FiO2 09/25/20 19:00 115 32 110/66 (81) 100 09/25/20 18:54 117 33 40 09/25/20 18:30 108 24 101/67 (78) 100 09/25/20 18:00 102 29 107/62 (77) 100 09/25/20 17:00 116 30 96/63 (74) 100 09/25/20 16:30 115 30 92/66 (75) 100 09/25/20 16:00 116 09/25/20 16:00 Mechanical Ventilator 09/25/20 16:00 98.4 116 27 101/64 (76) 100 09/25/20 16:00 40 09/25/20 15:30 115 25 101/62 (75) 100 09/25/20 15:00 116 25 114/65 (81) 100 09/25/20 14:30 115 30 110/65 (80) 97 09/25/20 14:00 115 28 90/47 (61) 100 09/25/20 13:30 116 25 101/60 (74) 100 09/25/20 13:12 116 29 40 09/25/20 13:00 117 26 116/65 (82) 100 09/25/20 12:30 119 28 110/70 (83) 100 09/25/20 12:00 Mechanical Ventilator 09/25/20 12:00 119 09/25/20 12:00 98.6 119 29 106/62 (77) 100 09/25/20 12:00 40 09/25/20 11:30 119 31 112/64 (80) 100 09/25/20 11:00 119 32 116/73 (87) 100 09/25/20 10:30 119 32 106/65 (79) 100 09/25/20 10:00 120 31 105/63 (77) 100 09/25/20 09:30 120 32 116/63 (80) 100 09/25/20 09:00 40 09/25/20 09:00 118 31 108/65 (79) 100 09/25/20 08:30 121 28 117/71 (86) 100 09/25/20 08:17 123 09/25/20 08:00 117/66 09/25/20 08:00 99.0 122 30 117/66 (83) 100 09/25/20 08:00 Mechanical Ventilator 09/25/20 08:00 122 09/25/20 07:00 121 30 116/68 (84) 100 09/25/20 06:39 122 30 40 09/25/20 06:30 122 30 09/25/20 06:30 122 30 118/67 (84) 100 09/25/20 06:00 103/59 09/25/20 06:00 121 29 103/59 (74) 100 09/25/20 05:30 123 29 112/64 (80) 100 09/25/20 05:00 122 33 112/67 (82) 100 09/25/20 05:00 112/67 09/25/20 04:30 123 33 111/66 (81) 100 09/25/20 04:00 40 09/25/20 04:00 113/67 09/25/20 04:00 Mechanical Ventilator 09/25/20 04:00 98.8 119 34 113/67 (82) 100 09/25/20 04:00 123 09/25/20 03:30 118 34 117/67 (84) 100 09/25/20 03:00 113 34 108/64 (79) 100 09/25/20 03:00 108/64 09/25/20 02:30 129/68 09/25/20 02:30 123 31 129/68 (88) 100 09/25/20 02:00 120 34 130/79 (96) 100 09/25/20 02:00 130/79 09/25/20 01:45 98 28 40 09/25/20 01:30 119 34 124/66 (85) 100 09/25/20 01:00 121 29 109/69 (82) 100 09/25/20 01:00 109/69 09/25/20 00:30 123 29 124/73 (90) 100 09/25/20 00:18 120 32 119/65 100 09/25/20 00:00 Mechanical Ventilator 09/25/20 00:00 98.8 120 32 119/65 (83) 100 09/25/20 00:00 116/65 09/25/20 00:00 127 09/25/20 00:00 40 09/24/20 23:48 125 22 109/68 100 09/24/20 23:30 122 33 111/70 (84) 100 09/24/20 23:00 128/71 09/24/20 23:00 124 31 128/71 (90) 100 09/24/20 22:30 114 33 117/72 (87) 100 09/24/20 22:04 127 30 40 09/24/20 22:00 110 32 121/83 (96) 100 09/24/20 22:00 121/83 Intake and Output 09/24/20 09/25/20 19:00 07:00 Intake Total 4060.823 ml 2206.737 ml Output Total 580 ml 1400 ml Balance 3480.823 ml 806.737 ml Intake Free Water 200 ml IV Total 3500.823 ml 1806.737 ml Tube Feeding 300 ml 400 ml Other 60 ml Output Urine Total 580 ml 1400 ml # Bowel Movements 2 Laboratory Tests Test 09/25/20 04:00 09/25/20 06:00 09/25/20 09:10 White Blood Count 3.9 K/UL (4.8-10.8) #L Red Blood Count 2.95 M/UL (4.70-6.10) L Hemoglobin 9.4 G/DL (14.2-18.0) L Hematocrit 28.1 % (42.0-52.0) L Mean Corpuscular Volume 95 FL (80-99) Mean Corpuscular Hemoglobin 31.8 PG (27.0-31.0) H Mean Corpuscular Hemoglobin Concent 33.4 G/DL (32.0-36.0) Red Cell Distribution Width 14.5 % (11.6-14.8) Platelet Count 43 K/UL (150-450) L Mean Platelet Volume 11.7 FL (6.5-10.1) H Neutrophils (%) (Auto) % (45.0-75.0) Lymphocytes (%) (Auto) % (20.0-45.0) Monocytes (%) (Auto) % (1.0-10.0) Eosinophils (%) (Auto) % (0.0-3.0) Basophils (%) (Auto) % (0.0-2.0) Differential Total Cells Counted 100 Neutrophils % (Manual) 73 % (45-75) Lymphocytes % (Manual) 17 % (20-45) L Monocytes % (Manual) 9 % (1-10) Eosinophils % (Manual) 1 % (0-3) Basophils % (Manual) 0 % (0-2) Band Neutrophils 0 % (0-8) Platelet Estimate Decreased L Platelet Morphology Normal Anisocytosis 1+ Sodium Level 142 MMOL/L (136-145) Potassium Level 3.7 MMOL/L (3.5-5.1) Chloride Level 114 MMOL/L (98-107) H Carbon Dioxide Level 18 MMOL/L (21-32) L Anion Gap 10 mmol/L (5-15) Blood Urea Nitrogen 66 mg/dL (7-18) H Creatinine 4.0 MG/DL (0.55-1.30) H Estimat Glomerular Filtration Rate 14.8 mL/min (>60) Glucose Level 108 MG/DL (74-106) H Uric Acid 8.0 MG/DL (2.6-7.2) H Calcium Level 6.1 MG/DL (8.5-10.1) L Phosphorus Level 2.5 MG/DL (2.5-4.9) Magnesium Level 2.1 MG/DL (1.8-2.4) Total Bilirubin 1.3 MG/DL (0.2-1.0) H Direct Bilirubin 0.8 MG/DL (0.0-0.3) H Gamma Glutamyl Transpeptidase 43 U/L (5-85) Aspartate Amino Transf (AST/SGOT) 67 U/L (15-37) H Alanine Aminotransferase (ALT/SGPT) 35 U/L (12-78) Alkaline Phosphatase 146 U/L (46-116) H Total Creatine Kinase 632 U/L (26-308) H C-Reactive Protein, Quantitative 14.2 mg/dL (0.00-0.90) H Pro-B-Type Natriuretic Peptide 30965 pg/mL (0-125) H Total Protein 5.2 G/DL (6.4-8.2) L Albumin 2.0 G/DL (3.4-5.0) L Globulin 3.2 g/dL Albumin/Globulin Ratio 0.6 (1.0-2.7) L Random Vancomycin Level 19.1 ug/mL Urine Eosinophils None seen (NONE SEEN) Arterial Blood pH 7.365 (7.350-7.450) Arterial Blood Partial Pressure CO2 28.9 mmHg (35.0-45.0) L Arterial Blood Partial Pressure O2 111.7 mmHg (75.0-100.0) H Arterial Blood HCO3 16.1 mmol/L (22.0-26.0) *L Arterial Blood Oxygen Saturation 97.4 % (95-100) Arterial Blood Base Excess 8.1 (-2-2) H Kush Test Positive Microbiology Date/Time Source Procedure Growth Status 09/23/20 16:30 Blood Blood Culture - Preliminary NO GROWTH AFTER 24 HOURS Resulted Objective HEAD AND NECK: Orally intubated. LUNGS: Coarse rhonchi. CARDIOVASCULAR: Irregular irregular and tachycardic S1 and S2 with no gallop. ABDOMEN: Soft. EXTREMITIES: No pitting edema. Carlos Eduardo Crespo MD Sep 25, 2020 21:50
--- NOTE | 2020-09-25 22:00 | NUR ---
NURSE NOTES: Given suction and oral care. Turn and reposition. SaO2 100% with current Vent setting. Will continue to monitor any change of condition.
[2020-09-26] VITALS (52 sets, daily range): BP systolic 91–133; BP diastolic 47–96
--- NOTE | 2020-09-26 00:30 | NUR ---
NURSE NOTES: Pt is resting on the bed and obtunded. On mimeographer with A-fib and pacing and HR is fluctuated. BT: 99.0. Keep cooling measure. RT said ETT is possible to leak and volume not delivered enough. But SaO2 100% with current Vent setting. Left message to Dr. Byrne and awaiting call back. Will continue to monitor any change of condition.
--- NOTE | 2020-09-26 00:48 | NUR ---
NURSE NOTES: Get call back from Dr. Byrne and he will contact ER doctor. Noted SaO2 100% at this time. Will continue to monitor any change of condition.
[2020-09-26] MEDS: LORazepam Inj 2mg/ml 1ml IV PRN (02:15)
[2020-09-26] MEDS ORDERED: propofoL 1,000mg/100ml 100 ML IV SCH (02:15)
--- NOTE | 2020-09-26 02:20 | NUR ---
NURSE NOTES: ER doctor Ngoc in bedside and trying to reinserted ETT. But Pt is very agitated. Already given ativan 2mg IV but still agitated. Given propofol 100mcg(=10cc) IV bolus as ER doctors order for sedation. Will continue to monitor.
--- NOTE | 2020-09-26 02:22 | NUR ---
CODE BLUE: See Code sheet which remains on paper.
--- NOTE | 2020-09-26 02:45 | NUR ---
NURSE NOTES: Pt is resting on the bed and reintubated with ETT : 7.0. Chest X-ray was taken awaiting result. BP is 114/54mmHg, HR: 120-130's with A-fib and pacing. Pt able to response to pain stimuli. SaO2 going up and noted 90% with Vent. Setting with AC: 16, T: 650, P:8, FiO2 100%. Noted moderated thick secretion from mouth and ETT. Held OGT feeding at this time. Will continue to monitor any change of condition.
--- NOTE | 2020-09-26 03:03 | Emergency Room Report ---
History of Present Illness General Chief Complaint: Altered Level of Consciousness Source: Medical Record, PMD Present Illness HPI This patient was admitted to the ICU for respiratory failure and was subsequently intubated. He was not getting Valium and I was asked to reintubate the patient. On my arrival patient has low-volume he was in respiratory distress. Try to deflate the balloon but it was not deflating. When I put check with a MAC 4 blade, the balloon was hyperinflated and was stuck in the oropharynx. I popped it with the MAC 4 blade. I try to pass the bougie through the endotracheal tube it was unsuccessful. So therefore, I sedated the patient and remove the old tube and intubated patient without any problem. Shortly after intubation, patient had no pulse. The monitor showed a paced rate of 65. CPR was initiated and patient received 1 mg of epinephrine. After short course of CPR, there was a spontaneous pulse. Patient was placed back on the ventilator. Condition is critical. 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 COVID-19 Screening: Negative COVID-19 COVID-19 Testing Source: [facility] Nursing Documentation-[facility] Past Medical History: No History, Except For Hx Cardiac Problems: Yes - AFIB; sick sinus syndrome Hx Hypertension: Yes Hx Pacemaker: Yes Hx Cancer: No Hx Gastrointestinal Problems: Yes - Dysphagia Hx Dementia: Yes Physical Exam Vital Signs Date Time Temp Pulse Resp B/P (MAP) Pulse Ox O2 Delivery O2 Flow Rate FiO2 09/22/20 07:00 101.5 120 22 137/75 98 Mechanical Ventilator 100 09/22/20 07:18 15.0 Procedures CPR/Code Blue CPR/Code Blue Narrative Please see code sheet for time epinephrine was given. Intubation Intubation : Consent: Emergent Intubation Method: orotracheal Tube Size (cm): 7.0 Medications: Succinylcholine Breath Sounds after Intubation: equal Intubation Complications: no complications Post Intubation Xray: Yes Progress/Xray Impression: Endotracheal tube just below the sternal notch. No pneumothorax. Attempts: One Patient Tolerated: Well Complications: None Medical Decision Making Diagnostic Impression: Primary Impression: AMS (altered mental status) Additional Impressions: Pulseless ventricular tachycardia ARF (acute renal failure) Cardiopulmonary arrest Hypernatremia Respiratory failure NSTEMI (non-ST elevated myocardial infarction) ANGI (acute kidney injury) Last Vital Signs Date Time Temp Pulse Resp B/P (MAP) Pulse Ox O2 Delivery O2 Flow Rate FiO2 09/26/20 02:30 123 16 40 09/26/20 02:20 115/62 Mechanical Ventilator 09/26/20 02:15 95 09/26/20 00:00 99.1 09/22/20 08:00 15.0 Status: improved Disposition: ADMITTED INPATIENT Condition: Critical Referrals: Andrés Rothman MD (PCP) Keny Grossman MD Sep 26, 2020 03:03
[2020-09-26] MEDS: D5 1/4NS 1000ml 1,000 ML IV SCH ×3 (03:08→23:00)
--- NOTE | 2020-09-26 03:22 | Diagnostic Imaging Report ---
EXAM: XR Chest, 1 View CLINICAL HISTORY: TUBE PLCMT TECHNIQUE: Frontal view of the chest. COMPARISON: 09/25/2020 FINDINGS: Lungs: The right lateral aspect of the chest is not included. There are patchy bibasilar opacities which could represent atelectasis but cannot exclude a pneumonia. Pleural space: Unremarkable. No pneumothorax. Heart: Unremarkable. No cardiomegaly. Mediastinum: Unremarkable. Bones/joints: Unremarkable. Vasculature: The aorta is tortuous. Tubes, lines and devices: Endotracheal tube is in appropriate position, 5.0 cm above the malissa. A permanent pacemaker is unchanged in position. IMPRESSION: 1. ET tube in appropriate position. 2. Patchy bibasilar opacities, atelectasis, versus pneumonia.
--- NOTE | 2020-09-26 03:55 | Diagnostic Imaging Report ---
EXAM: XR Abdomen, 1 View CLINICAL HISTORY: NGT TECHNIQUE: Frontal view of the abdomen/pelvis with upright view of the abdomen. COMPARISON: No relevant prior studies available. FINDINGS: Only a small portion of the upper abdomen is imaged, along with much of the chest. The enteric tube is in appropriate position with both the distal end and proximal side-port overlying the gastric fundus. ET tube is in appropriate position, 5.7 cm above the malissa. Most of the abdomen is not imaged-cannot assess bowel gas pattern. IMPRESSION: NG tube in appropriate position.
--- NOTE | 2020-09-26 04:00 | NUR ---
NURSE NOTES: Morning care was done. Given bed bath. Cleaned Pt and applied lotion and cream. Changed wound dressing. Checked BT: 99.2F and keep cooling measure. Holding NGT feeding. Will continue to monitor any change of condition.
[2020-09-26 05:24] LABS: MEAN CORPUSCULAR VOLUME 92 FL (80-99); PLATELET COUNT 43 K/UL (150-450); RED BLOOD COUNT 3.17 M/UL (4.70-6.10); RED CELL DISTRIBUTION WIDTH 15.3 % (11.6-14.8); WHITE BLOOD COUNT 6.2 K/UL (4.8-10.8)
[2020-09-26 05:58] LABS: ALBUMIN 2.1 G/DL (3.4-5.0); ALBUMIN/GLOBULIN RATIO 0.6 (1.0-2.7); BILIRUBIN,TOTAL 1.1 MG/DL (0.2-1.0); CALCIUM 6.5 MG/DL (8.5-10.1); CREATININE 3.7 MG/DL (0.55-1.30); PHOSPHORUS 3.4 MG/DL (2.5-4.9); POTASSIUM 4.1 MMOL/L (3.5-5.1)
--- NOTE | 2020-09-26 06:00 | NUR ---
NURSE NOTES: SaO2 99-100% with current Vent setting. Given suction and oral care. Changed position. held OGT feeding d/t residual. Keep cooling measure. changed position. Will continue to monitor any change of condition.
[2020-09-26 06:03] LABS: BILIRUBIN,DIRECT 0.7 MG/DL (0.0-0.3)
--- NOTE | 2020-09-26 07:19 | NUR ---
NURSE NOTES: Received report from KRYSTYNA Stephenson. Patient orally intubated; reintubated this AM d/t busted cuff, ETT 7.0, 25cm @ the lipline with vent settings of AC:16, TV:650, FiO2:100% PEEP:5, O2sat:94%. Patient is sedated RASS -2; awakens to voice and touch. OGT in place and patent; Glucerna 1.2 @ 45ml/hr held at this time d/t reported high residual. Whiting catheter in place and draining to urometer. Right femoral TLC running D5 1/4NS @ 100ml/hr. Pt noted to have generalized edema. Skin issues noted. Safety measures in place; bed low, locked and alarm is on. Will continue plan of care.
--- NOTE | 2020-09-26 07:30 | NUR ---
NURSE HAND-OFF REPORT: Latest Vital Signs: Temperature 101.7 , Pulse 110 , B/P 105 /59 , Respiratory Rate 20 , O2 SAT 100 , Mechanical Ventilator, O2 Flow Rate . Vital Sign Comment: EKG Rhythm: Atrial Fibrillation Rhythm change?: N Notified?: Jerrod Crespo MD Response: Order Received& Read Back Latest Robertson Fall Score: 75 Fall Risk: High Risk Safety Measures: Call light Within Reach, Bed Alarm Zone 1, Side Rails Side Rails x2, Bed position Low and Locked. Fall Precautions: Yellow Socks Yellow Gown Door Sign Patient Fall Education Report given to KRYSTYNA [place]. Pt is sleeping on the bed and SaO2 99-100% with current Vent setting.
[2020-09-26] MEDS: Pantoprazole Inj IVP SCH ×2 (08:02→21:11)
[2020-09-26] MEDS: Meropenem 500mg/NS 55ml IVPB SCH ×4 (08:02→21:12)
[2020-09-26] MEDS: Amiodarone 200mg tab NG SCH ×3 (08:02→17:56)
[2020-09-26] MEDS: Digoxin 0.125mg tab ORAL SCH (08:04)
[2020-09-26] MEDS: Heparin 5000 units/ml inj SUBQ SCH ×2 (08:04→21:00)
--- NOTE | 2020-09-26 08:29 | NUR ---
NURSE NOTES: Oral AM medications accidentally spilled on the floor in pt's room. Advised by pharmacy to place one time orders in order to pull out medications from Pyxis. Documented one time orders as non-administered d/t already scanning previous medications as administered.
[2020-09-26] MEDS ORDERED: Amiodarone 200mg tab ORAL SCH (08:30)
[2020-09-26] MEDS ORDERED: Acetaminophen 650mg/20.3ml NG SCH (08:30)
[2020-09-26] MEDS ORDERED: Digoxin 0.125mg tab ORAL SCH (08:30)
[2020-09-26] MEDS: Vitamin D 1000 units Tab GT SCH (09:47)
[2020-09-26] MEDS ORDERED: Vancomycin 750mg/NS 275ml IVPB ONE ×2 (10:00)
--- NOTE | 2020-09-26 10:00 | NUR ---
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 Upon assessment, pt found to have strong pulses. Leads changed and monitor wiring changed to no avail.
--- NOTE | 2020-09-26 12:00 | NUR ---
NURSE NOTES: Pt turned and repositioned at this time. 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 Pt now displaying Sinus tachycardia with intermittent Vtach. No symptoms of Vtach and rhythm does not appear to be Vtach. Pt has a bounding pulse upon assessment. Awaiting Dr Crespo to make his rounds.
--- NOTE | 2020-09-26 13:11 | NUR ---
NURSE NOTES: Dr Torres at bedside assessing pt. Updated him on pt's current condition and informed him of pts intermittent periods of V Tach.
--- NOTE | 2020-09-26 13:13 | Pulmonolgy Critical Care Note ---
Critical Care - Asmt/Plan Problems: (1) Multiorgan failure (2) Septic shock (3) Acute respiratory failure (4) Rapid atrial fibrillation (5) ARF (acute renal failure) (6) Pulseless ventricular tachycardia (7) Cardiopulmonary arrest (8) Schizoaffective disorder Respiratory: monitor respiratory rate, adjust FIO2, CXR Cardiac: continue pressors, continue to monitor HR/BP Renal: F/U I&O, keep IV fluid, check electrolytes - Patients closest and only friend stated that the patient never would have wanted to be onlife support. therefore, I will make him DNR. Infectious Disease: check cultures Gastrointestinal: continue feedings/current rate, hold feedings Endocrine: check TSH Hematologic: monitor H/H, transfuse if hgb<8.5 Neurologic: PRN Ativan, PRN Morphine, keep patient comfortable Time Spent (Minutes): 40 Notes Reviewed: cardio, renal Discussed with: nurses, consultants, case advocatern manager - Objective Last 24 Hour Vital Signs Date Time Temp Pulse Resp B/P (MAP) Pulse Ox O2 Delivery O2 Flow Rate FiO2 09/26/20 12:00 Mechanical Ventilator 09/26/20 12:00 100 09/26/20 12:00 99.4 126 23 96/63 (74) 100 09/26/20 11:30 125 23 99/63 (75) 100 09/26/20 11:00 82 14 102/59 (73) 100 09/26/20 10:30 79 18 93/57 (69) 100 09/26/20 10:00 102 21 118/68 (85) 100 09/26/20 09:30 60 21 108/64 (79) 100 09/26/20 09:00 100.1 64 22 100/67 (78) 100 09/26/20 08:34 100.1 09/26/20 08:30 118 22 116/68 (84) 100 09/26/20 08:04 110 09/26/20 08:00 100 09/26/20 08:00 101.7 76 15 109/66 (80) 100 09/26/20 08:00 Mechanical Ventilator 09/26/20 07:30 117 13 106/65 (79) 100 09/26/20 07:05 119 22 40 09/26/20 07:00 126 20 105/59 (74) 100 12/27/20 06:30 128 32 09/26/20 06:00 128 32 119/72 (88) 100 09/26/20 05:30 119 31 99/72 (81) 100 09/26/20 05:00 119 30 96/68 (77) 100 09/26/20 04:30 121 38 122/96 (105) 99 09/26/20 04:00 Mechanical Ventilator 09/26/20 04:00 123 09/26/20 04:00 99.2 123 36 115/63 (80) 100 09/26/20 03:30 120 34 95/57 (70) 99 09/26/20 03:00 100 09/26/20 03:00 118 33 96/47 (63) 100 09/26/20 02:45 112 27 89/49 94 09/26/20 02:30 123 16 40 09/26/20 02:30 132 18 114/54 (74) 90 09/26/20 02:20 30 115/62 Mechanical Ventilator 100 09/26/20 02:15 120 30 114/68 95 09/26/20 02:00 106 35 105/59 (74) 100 09/26/20 01:58 114 30 40 09/26/20 01:00 84 30 104/69 (81) 100 09/26/20 00:00 Mechanical Ventilator 09/26/20 00:00 40 09/26/20 00:00 120 09/26/20 00:00 99.1 93 33 116/71 (86) 100 09/25/20 23:00 38 21 120/71 (87) 100 09/25/20 22:30 112 30 114/69 (84) 100 09/25/20 22:00 100 22 110/66 (81) 100 09/25/20 21:30 100 30 128/65 (86) 100 09/25/20 21:00 90 31 111/62 (78) 100 09/25/20 20:30 116 32 114/67 (83) 100 09/25/20 20:00 118 09/25/20 20:00 Mechanical Ventilator 09/25/20 20:00 40 09/25/20 20:00 99.2 108 32 109/56 (73) 100 09/25/20 19:30 110 30 113/66 (82) 100 09/25/20 19:00 115 32 110/66 (81) 100 09/25/20 18:54 117 33 40 09/25/20 18:30 108 24 101/67 (78) 100 09/25/20 18:00 102 29 107/62 (77) 100 09/25/20 17:00 116 30 96/63 (74) 100 09/25/20 16:30 115 30 92/66 (75) 100 09/25/20 16:00 116 09/25/20 16:00 Mechanical Ventilator 09/25/20 16:00 98.4 116 27 101/64 (76) 100 09/25/20 16:00 40 09/25/20 15:30 115 25 101/62 (75) 100 09/25/20 15:00 116 25 114/65 (81) 100 09/25/20 14:30 115 30 110/65 (80) 97 09/25/20 14:00 115 28 90/47 (61) 100 09/25/20 13:30 116 25 101/60 (74) 100 09/25/20 13:12 116 29 40 Status: awake Condition: critical Neck: full ROM, trach Lungs: rhonchi Heart: HR/BP stable Abdomen: soft, active bowel sounds Extremities: no C/C/E Micro: Microbiology Date/Time Source Procedure Growth Status 09/23/20 16:30 Blood Blood Culture - Preliminary NO GROWTH AFTER 48 HOURS Resulted Critical Care - Subjective ROS Limited/Unobtainable: No Condition: critical EKG Rhythm: Sinus Rhythm FI02: 100 Vent Support Breath Rate: 16 Vent Support Mode: AC Vent Tidal Volume: 650 Sputum Amount: Small PEEP: 8.0 PIP: 30 Tube Feeding Amount: 45 I&O: Intake and Output 09/25/20 09/26/20 19:00 07:00 Intake Total 2954.554 ml 1286 ml Output Total 1065 ml 330 ml Balance 1889.554 ml 956 ml IV Total 2174.554 ml 1241 ml Tube Feeding 540 ml 45 ml Other 240 ml Output Urine Total 1065 ml 330 ml ET-Tube: 7.0 ET Position: 25 Labs: Laboratory Tests Test 09/26/20 05:00 White Blood Count 6.2 K/UL (4.8-10.8) # Red Blood Count 3.17 M/UL (4.70-6.10) L Hemoglobin 10.0 G/DL (14.2-18.0) L Hematocrit 29.0 % (42.0-52.0) L Mean Corpuscular Volume 92 FL (80-99) Mean Corpuscular Hemoglobin 31.6 PG (27.0-31.0) H Mean Corpuscular Hemoglobin Concent 34.5 G/DL (32.0-36.0) Red Cell Distribution Width 15.3 % (11.6-14.8) H Platelet Count 43 K/UL (150-450) L Mean Platelet Volume 11.7 FL (6.5-10.1) H Neutrophils (%) (Auto) % (45.0-75.0) Lymphocytes (%) (Auto) % (20.0-45.0) Monocytes (%) (Auto) % (1.0-10.0) Eosinophils (%) (Auto) % (0.0-3.0) Basophils (%) (Auto) % (0.0-2.0) Differential Total Cells Counted 100 Neutrophils % (Manual) 71 % (45-75) Lymphocytes % (Manual) 12 % (20-45) L Monocytes % (Manual) 11 % (1-10) H Eosinophils % (Manual) 3 % (0-3) Basophils % (Manual) 0 % (0-2) Band Neutrophils 3 % (0-8) Platelet Estimate Decreased L Platelet Morphology Giant Platelets Occasional Anisocytosis 1+ Erythrocyte Sedimentation Rate 68 MM/HR (0-20) H Sodium Level 140 MMOL/L (136-145) Potassium Level 4.1 MMOL/L (3.5-5.1) Chloride Level 111 MMOL/L (98-107) H Carbon Dioxide Level 18 MMOL/L (21-32) L Anion Gap 11 mmol/L (5-15) Blood Urea Nitrogen 62 mg/dL (7-18) H Creatinine 3.7 MG/DL (0.55-1.30) H Estimat Glomerular Filtration Rate 16.1 mL/min (>60) Glucose Level 134 MG/DL (74-106) H Uric Acid 7.6 MG/DL (2.6-7.2) H Calcium Level 6.5 MG/DL (8.5-10.1) L Phosphorus Level 3.4 MG/DL (2.5-4.9) Magnesium Level 2.5 MG/DL (1.8-2.4) H Total Bilirubin 1.1 MG/DL (0.2-1.0) H Direct Bilirubin 0.7 MG/DL (0.0-0.3) H Aspartate Amino Transf (AST/SGOT) 114 U/L (15-37) H Alanine Aminotransferase (ALT/SGPT) 47 U/L (12-78) Alkaline Phosphatase 281 U/L (46-116) H C-Reactive Protein, Quantitative 10.4 mg/dL (0.00-0.90) H Total Protein 5.6 G/DL (6.4-8.2) L Albumin 2.1 G/DL (3.4-5.0) L Globulin 3.5 g/dL Albumin/Globulin Ratio 0.6 (1.0-2.7) L Vitamin D 25-Hydroxy Pending 25-Hydroxy Vitamin D2 Pending 25-Hydroxy Vitamin D3 Pending Jaclyn Byrne MD Sep 26, 2020 13:13
--- NOTE | 2020-09-26 14:20 | Nephrology Progress Note ---
Assessment/Plan Problem List: (1) ANIG (acute kidney injury) (2) Septic shock (3) Hypernatremia (4) NSTEMI (non-ST elevated myocardial infarction) (5) Acute respiratory failure (6) Dehydration (7) Rhabdomyolysis Assessment Sepsis, shock Acute renal failure Acute respiratory failure Hypernatremia, dehydration Non-STEMI Plan September 26: Renal parameters improving. Midodrine added to keep the blood pressure over 95 systolic. Albumin bolus given. Waiting for vitamin D level. Continue to monitor renal parameters and electrolytes. September 25: Discussed with KRYSTYNA [place]. Off pressors. Renal parameters improving. Will cut down IV fluid and give albumin bolus. Will give high dose of vitamin D for 3 days. Will check vitamin D level. September 24: Seen in ICU. Remains intubated. Urine output improved. Serum creatinine lower. Serum CPK lower. Abnormal electrolytes addressed. Continue to monitor renal parameters. Albumin bolus given. IV rate down to 150 cc an hour. September 23: Patient intubated on ventilator. Full code. Labs reviewed. IV fluid adjusted. Abnormal electrolytes addressed. Monitor CPK for rhabdo Previously: Fluid challenge IV hydration Albumin 5% Water through NG tube Monitor renal parameters Antibiotics Urine studies Avoid nephrotoxic's Poor prognosis Patient full code Per orders Subjective ROS Limited/Unobtainable: Yes Objective Objective Last 24 Hour Vital Signs Date Time Temp Pulse Resp B/P (MAP) Pulse Ox O2 Delivery O2 Flow Rate FiO2 09/26/20 12:00 Mechanical Ventilator 09/26/20 12:00 100 09/26/20 12:00 99.4 126 23 96/63 (74) 100 09/26/20 11:30 125 23 99/63 (75) 100 09/26/20 11:00 82 14 102/59 (73) 100 09/26/20 10:30 79 18 93/57 (69) 100 09/26/20 10:00 102 21 118/68 (85) 100 09/26/20 09:30 60 21 108/64 (79) 100 09/26/20 09:00 100.1 64 22 100/67 (78) 100 09/26/20 08:34 100.1 09/26/20 08:30 118 22 116/68 (84) 100 09/26/20 08:04 110 09/26/20 08:00 100 09/26/20 08:00 101.7 76 15 109/66 (80) 100 09/26/20 08:00 Mechanical Ventilator 09/26/20 07:30 117 13 106/65 (79) 100 09/26/20 07:05 119 22 40 09/26/20 07:00 126 20 105/59 (74) 100 09/26/20 06:30 128 32 09/26/20 06:00 128 32 119/72 (88) 100 09/26/20 05:30 119 31 99/72 (81) 100 09/26/20 05:00 119 30 96/68 (77) 100 09/26/20 04:30 121 38 122/96 (105) 99 09/26/20 04:00 Mechanical Ventilator 09/26/20 04:00 123 09/26/20 04:00 99.2 123 36 115/63 (80) 100 09/26/20 03:30 120 34 95/57 (70) 99 09/26/20 03:00 100 09/26/20 03:00 118 33 96/47 (63) 100 09/26/20 02:45 112 27 89/49 94 09/26/20 02:30 123 16 40 09/26/20 02:30 132 18 114/54 (74) 90 09/26/20 02:20 30 115/62 Mechanical Ventilator 100 09/26/20 02:15 120 30 114/68 95 09/26/20 02:00 106 35 105/59 (74) 100 09/26/20 01:58 114 30 40 09/26/20 01:00 84 30 104/69 (81) 100 09/26/20 00:00 Mechanical Ventilator 09/26/20 00:00 40 09/26/20 00:00 120 09/26/20 00:00 99.1 93 33 116/71 (86) 100 09/25/20 23:00 38 21 120/71 (87) 100 09/25/20 22:30 112 30 114/69 (84) 100 09/25/20 22:00 100 22 110/66 (81) 100 09/25/20 21:30 100 30 128/65 (86) 100 09/25/20 21:00 90 31 111/62 (78) 100 09/25/20 20:30 116 32 114/67 (83) 100 09/25/20 20:00 118 09/25/20 20:00 Mechanical Ventilator 09/25/20 20:00 40 09/25/20 20:00 99.2 108 32 109/56 (73) 100 09/25/20 19:30 110 30 113/66 (82) 100 09/25/20 19:00 115 32 110/66 (81) 100 09/25/20 18:54 117 33 40 09/25/20 18:30 108 24 101/67 (78) 100 09/25/20 18:00 102 29 107/62 (77) 100 09/25/20 17:00 116 30 96/63 (74) 100 09/25/20 16:30 115 30 92/66 (75) 100 09/25/20 16:00 116 09/25/20 16:00 Mechanical Ventilator 09/25/20 16:00 98.4 116 27 101/64 (76) 100 09/25/20 16:00 40 09/25/20 15:30 115 25 101/62 (75) 100 09/25/20 15:00 116 25 114/65 (81) 100 09/25/20 14:30 115 30 110/65 (80) 97 Intake and Output 09/25/20 09/26/20 19:00 07:00 Intake Total 2954.554 ml 1286 ml Output Total 1065 ml 330 ml Balance 1889.554 ml 956 ml IV Total 2174.554 ml 1241 ml Tube Feeding 540 ml 45 ml Other 240 ml Output Urine Total 1065 ml 330 ml Current Medications Medications (Trade) Dose Ordered Sig/Fabrizio Route PRN Reason Start Time Stop Time Status Last Admin Dose Admin Acetaminophen (Tylenol) 650 mg Q4H PRN NG Mild Pain (Pain Scale 1-3) 09/23/20 13:30 10/23/20 13:29 09/23/20 13:42 Acetaminophen (Tylenol) 650 mg Q4H PRN NG Temp >100.5 09/23/20 13:30 10/23/20 13:29 09/26/20 08:04 Albumin Human 500 ml @ 0 mls/hr Q0M IV 09/26/20 13:45 09/26/20 15:00 Albuterol/ Ipratropium (Albuterol/ Ipratropium) 3 ml Q4H PRN HHN Shortness of Breath 09/21/20 23:45 09/26/20 23:44 Amiodarone HCl (Cordarone) 400 mg EVERY 12 HOURS NG 09/25/20 21:15 12/24/20 21:14 09/26/20 08:02 Chlorhexidine Gluconate (Jennifer-Hex 2%) 1 applic DAILY@2000 TOPIC 09/22/20 20:00 12/21/20 19:59 09/25/20 19:42 Dextrose/Sodium Chloride 1,000 ml @ 100 mls/hr Q10H IV 09/22/20 11:00 10/22/20 10:59 09/26/20 12:00 Digoxin (Lanoxin) 0.125 mg DAILY ORAL 09/24/20 09:00 12/23/20 08:59 09/26/20 08:04 Haloperidol Lactate (Haldol) 5 mg Q6H PRN IM Agitation 09/21/20 23:45 11/05/20 23:44 Heparin Sodium (Porcine) (Heparin 5000 units/ml) 5,000 units EVERY 12 HOURS SUBQ 09/22/20 09:00 11/06/20 08:59 09/22/20 21:00 Lorazepam (Ativan 2mg/ml 1ml) 2 mg Q2H PRN IV For Anxiety 09/21/20 23:45 09/28/20 23:44 09/26/20 02:15 Meropenem 500 mg/ Sodium Chloride 55 ml @ 110 mls/hr Q12HR IVPB 09/22/20 10:00 09/28/20 09:59 09/26/20 08:02 Morphine Sulfate (Morphine Sulfate) 4 mg Q4H PRN IVP Severe Pain (Pain Scale 7-10) 09/21/20 23:45 09/28/20 23:44 Norepinephrine Bitartrate 250 ml @ 7.5 mls/hr Q24H PRN IV For hypotension 09/26/20 13:15 09/29/20 13:09 Ondansetron HCl (Zofran) 4 mg Q6H PRN IVP Nausea & Vomiting 09/21/20 23:45 10/21/20 23:44 Pantoprazole (Protonix) 40 mg Q12HR IVP 09/22/20 21:00 10/22/20 08:59 09/26/20 08:02 Polyethylene Glycol (Miralax) 17 gm DAILYPRN PRN ORAL Constipation 09/21/20 23:45 10/21/20 23:44 [facility] 1 ea DAILY PRN MISC PER RX PROTOCOL 09/22/20 07:45 10/22/20 07:44 Vitamin D (Vitamin D) 20,000 unit DAILY GT 09/26/20 09:00 09/27/20 09:01 09/26/20 09:47 Laboratory Tests 09/26/20 05:00: White Blood Count 6.2#, Red Blood Count 3.17L, Hemoglobin 10.0L, Hematocrit 29.0L, Mean Corpuscular Volume 92, Mean Corpuscular Hemoglobin 31.6H, Mean Corpuscular Hemoglobin Concent 34.5, Red Cell Distribution Width 15.3H, Platelet Count 43L, Mean Platelet Volume 11.7H, Neutrophils (%) (Auto) , Lymphocytes (%) (Auto) , Monocytes (%) (Auto) , Eosinophils (%) (Auto) , Basophils (%) (Auto) , Differential Total Cells Counted 100, Neutrophils % (Manual) 71, Lymphocytes % (Manual) 12L, Monocytes % (Manual) 11H, Eosinophils % (Manual) 3, Basophils % (Manual) 0, Band Neutrophils 3, Platelet Estimate DecreasedL, Platelet Morphology , Giant Platelets Occasional, Anisocytosis 1+, Erythrocyte Sedimentation Rate 68H, Sodium Level 140, Potassium Level 4.1, Chloride Level 111H, Carbon Dioxide Level 18L, Anion Gap 11, Blood Urea Nitrogen 62H, Creatinine 3.7H, Estimat Glomerular Filtration Rate 16.1, Glucose Level 134H, Uric Acid 7.6H, Calcium Level 6.5L, Phosphorus Level 3.4, Magnesium Level 2.5H, Total Bilirubin 1.1H, Direct Bilirubin 0.7H, Aspartate Amino Transf (AST/SGOT) 114H, Alanine Aminotransferase (ALT/SGPT) 47, Alkaline Phosphatase 281H, C- Reactive Protein, Quantitative 10.4H, Total Protein 5.6L, Albumin 2.1L, Globulin 3.5, Albumin/Globulin Ratio 0.6L, Vitamin D 25-Hydroxy [Pending], 25-Hydroxy Vitamin D2 [Pending], 25-Hydroxy Vitamin D3 [Pending] Height (Feet): 5 Height (Inches): 9.00 Weight (Pounds): 190 General Appearance: no apparent distress Cardiovascular: tachycardia Respiratory/Chest: decreased breath sounds Abdomen: distended Objective No change Gelacio Mata MD Sep 26, 2020 14:20
[2020-09-26] MEDS: Midodrine 10mg tab ORAL SCH ×2 (14:32→21:13)
--- NOTE | 2020-09-26 14:50 | NUR ---
NURSE NOTES: Pt continues to have high residuals >100. Feeding continues to be held.
--- NOTE | 2020-09-26 15:00 | NUR ---
NURSE NOTES: Amiodarone increased to TID, as ordered by Dr Crespo
--- NOTE | 2020-09-26 15:06 | Internal Med Progress Note ---
Subjective Physician Name Andrés Rothman Attending Physician Andrés Rothman MD Current Medications Medications (Trade) Dose Ordered Sig/Fabrizio Route PRN Reason Start Time Stop Time Status Last Admin Dose Admin Acetaminophen (Tylenol) 650 mg Q4H PRN NG Mild Pain (Pain Scale 1-3) 09/23/20 13:30 10/23/20 13:29 09/23/20 13:42 Acetaminophen (Tylenol) 650 mg Q4H PRN NG Temp >100.5 09/23/20 13:30 10/23/20 13:29 09/26/20 08:04 Albuterol/ Ipratropium (Albuterol/ Ipratropium) 3 ml Q4H PRN HHN Shortness of Breath 09/21/20 23:45 09/26/20 23:44 Amiodarone HCl (Cordarone) 400 mg TID NG 09/26/20 14:30 12/24/20 21:14 09/26/20 14:31 Chlorhexidine Gluconate (Jennifer-Hex 2%) 1 applic DAILY@2000 TOPIC 09/22/20 20:00 12/21/20 19:59 09/25/20 19:42 Dextrose/Sodium Chloride 1,000 ml @ 100 mls/hr Q10H IV 09/22/20 11:00 10/22/20 10:59 09/26/20 12:00 Digoxin (Lanoxin) 0.125 mg DAILY ORAL 09/24/20 09:00 12/23/20 08:59 09/26/20 08:04 Haloperidol Lactate (Haldol) 5 mg Q6H PRN IM Agitation 09/21/20 23:45 11/05/20 23:44 Heparin Sodium (Porcine) (Heparin 5000 units/ml) 5,000 units EVERY 12 HOURS SUBQ 09/22/20 09:00 11/06/20 08:59 09/22/20 21:00 Lorazepam (Ativan 2mg/ml 1ml) 2 mg Q2H PRN IV For Anxiety 09/21/20 23:45 09/28/20 23:44 09/26/20 02:15 Meropenem 500 mg/ Sodium Chloride 55 ml @ 110 mls/hr Q12HR IVPB 09/22/20 10:00 09/28/20 09:59 09/26/20 08:02 Midodrine (Pro-Amatine) 10 mg Q8HR ORAL 09/26/20 14:30 12/25/20 14:29 09/26/20 14:32 Morphine Sulfate (Morphine Sulfate) 4 mg Q4H PRN IVP Severe Pain (Pain Scale 7-10) 09/21/20 23:45 09/28/20 23:44 Norepinephrine Bitartrate 250 ml @ 7.5 mls/hr Q24H PRN IV For hypotension 09/26/20 13:15 09/29/20 13:09 Ondansetron HCl (Zofran) 4 mg Q6H PRN IVP Nausea & Vomiting 09/21/20 23:45 10/21/20 23:44 Pantoprazole (Protonix) 40 mg Q12HR IVP 09/22/20 21:00 10/22/20 08:59 09/26/20 08:02 Polyethylene Glycol (Miralax) 17 gm DAILYPRN PRN ORAL Constipation 09/21/20 23:45 10/21/20 23:44 Vancomycin HCl ([facility] pharmacy to dose) 1 ea DAILY PRN MISC PER RX PROTOCOL 09/22/20 07:45 10/22/20 07:44 Vitamin D (Vitamin D) 20,000 unit DAILY GT 09/26/20 09:00 09/27/20 09:01 09/26/20 09:47 Allergies: Coded Allergies: No Known Allergies (Unverified , 07/22/20) Subjective in ICU, intubated remained on ventilation, unable to follow commands, unresponsive, WBC: 6.2, renal function improving, V tach storm . Objective Last Vital Signs Date Time Temp Pulse Resp B/P (MAP) Pulse Ox O2 Delivery O2 Flow Rate FiO2 09/26/20 14:00 127 24 91/61 (71) 100 09/26/20 12:00 Mechanical Ventilator 09/26/20 12:00 100 09/26/20 12:00 99.4 09/22/20 08:00 15.0 Laboratory Tests Test 09/26/20 05:00 White Blood Count 6.2 K/UL (4.8-10.8) # Red Blood Count 3.17 M/UL (4.70-6.10) L Hemoglobin 10.0 G/DL (14.2-18.0) L Hematocrit 29.0 % (42.0-52.0) L Mean Corpuscular Volume 92 FL (80-99) Mean Corpuscular Hemoglobin 31.6 PG (27.0-31.0) H Mean Corpuscular Hemoglobin Concent 34.5 G/DL (32.0-36.0) Red Cell Distribution Width 15.3 % (11.6-14.8) H Platelet Count 43 K/UL (150-450) L Mean Platelet Volume 11.7 FL (6.5-10.1) H Neutrophils (%) (Auto) % (45.0-75.0) Lymphocytes (%) (Auto) % (20.0-45.0) Monocytes (%) (Auto) % (1.0-10.0) Eosinophils (%) (Auto) % (0.0-3.0) Basophils (%) (Auto) % (0.0-2.0) Differential Total Cells Counted 100 Neutrophils % (Manual) 71 % (45-75) Lymphocytes % (Manual) 12 % (20-45) L Monocytes % (Manual) 11 % (1-10) H Eosinophils % (Manual) 3 % (0-3) Basophils % (Manual) 0 % (0-2) Band Neutrophils 3 % (0-8) Platelet Estimate Decreased L Platelet Morphology Giant Platelets Occasional Anisocytosis 1+ Erythrocyte Sedimentation Rate 68 MM/HR (0-20) H Sodium Level 140 MMOL/L (136-145) Potassium Level 4.1 MMOL/L (3.5-5.1) Chloride Level 111 MMOL/L (98-107) H Carbon Dioxide Level 18 MMOL/L (21-32) L Anion Gap 11 mmol/L (5-15) Blood Urea Nitrogen 62 mg/dL (7-18) H Creatinine 3.7 MG/DL (0.55-1.30) H Estimat Glomerular Filtration Rate 16.1 mL/min (>60) Glucose Level 134 MG/DL (74-106) H Uric Acid 7.6 MG/DL (2.6-7.2) H Calcium Level 6.5 MG/DL (8.5-10.1) L Phosphorus Level 3.4 MG/DL (2.5-4.9) Magnesium Level 2.5 MG/DL (1.8-2.4) H Total Bilirubin 1.1 MG/DL (0.2-1.0) H Direct Bilirubin 0.7 MG/DL (0.0-0.3) H Aspartate Amino Transf (AST/SGOT) 114 U/L (15-37) H Alanine Aminotransferase (ALT/SGPT) 47 U/L (12-78) Alkaline Phosphatase 281 U/L (46-116) H C-Reactive Protein, Quantitative 10.4 mg/dL (0.00-0.90) H Total Protein 5.6 G/DL (6.4-8.2) L Albumin 2.1 G/DL (3.4-5.0) L Globulin 3.5 g/dL Albumin/Globulin Ratio 0.6 (1.0-2.7) L Vitamin D 25-Hydroxy Pending 25-Hydroxy Vitamin D2 Pending 25-Hydroxy Vitamin D3 Pending Microbiology Date/Time Source Procedure Growth Status 09/23/20 16:30 Blood Blood Culture - Preliminary NO GROWTH AFTER 48 HOURS Resulted Intake and Output 09/25/20 09/26/20 19:00 07:00 Intake Total 2954.554 ml 1286 ml Output Total 1065 ml 330 ml Balance 1889.554 ml 956 ml IV Total 2174.554 ml 1241 ml Tube Feeding 540 ml 45 ml Other 240 ml Output Urine Total 1065 ml 330 ml Objective General: remain on ventilation, unresponsive, cannot follow commands. HEENT: NCAT, sclera anicteric, PERRL, ET Tube, OG Tube. Neck: Supple, no significant jugular venous distention, Lungs: mechanical breath sounds, decreased air at the bases, no wheezes. Heart: S1, S2, regular rate, tachycardia,, normal S1/S2, no murmurs, pacemaker at left side chest wall. Abdomen: soft, nontender, nondistended. Normoactive bowel sounds. : Whiting catheter. Extremities: No Cyanosis , clubbing or edema. Neuro: limited secondary to patient's status, unable to follow commands. Assessment/Plan Assessment/Plan ASSESSMENT: This is a 75-year-old white male with: 1. Pneumonia. 2. Acute hypoxemic Respiratory failure. 3. Septic shock. 4. Non-ST elevated myocardial infarction. 5. Hypertension. 6. Benign prostatic hypertrophy. 7. Alzheimer's dementia. 8. Depression. 9. status post cardiopulmonary arrest / PEA arrest (09/22/2020) 10. Atrial fibrillation with rapid ventricular rate. 11. Acute renal failure on chronic renal insufficiency. 12. hypernatremia. 13. Multiorgan failure. 14. Acute E. coli UTI. 15. MRSA sepsis/bacteremia. 16. NSTEMI 17. sick sinus syndrome status post a pacemaker on 08/27/2020. 18. Ventricular tachycardia. TREATMENT: 1. Pneumonia. Abx: meropenem and vancomycin. An Infectious Disease consultation has been obtained with Dr. Aviles. Follow recommendations of Infectious Disease. A Pulmonary consultation has been obtained with Dr. Jaclyn Byrne. 2. Septic shock. The patient is currently on vasopressin. 3. Non-ST elevated myocardial infarction. A Cardiology consultation has been obtained with Dr. Carlos Eduardo Crespo. Follow recommendations of Cardiology. 4. Hypertension. The patient is currently hypotensive. Hold antihypertensive medication. 5. Benign prostatic hypertrophy. Continue Flomax as above. 6. Alzheimer's dementia. 7. History of schizophrenia/depression. 8. Pacemaker in situ. tolerated tube feeding at 45 cc/hr. on Amiodarone 400 mg 3 times a day Pressors: off CODE STATUS: DNR DVT prophylaxis: heparin subcu. CXR: Patchy bibasilar opacities, atelectasis, versus pneumonia. Andrés Rothman MD Sep 26, 2020 15:06
[2020-09-26] MEDS ORDERED: Tubing IV Secondary IV ONE (15:34)
--- NOTE | 2020-09-26 16:00 | NUR ---
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 Decreased FiO2 to 80%. Pt tolerating well.
--- NOTE | 2020-09-26 17:00 | NUR ---
NURSE NOTES: Pt fully cleaned and linens changed. No BM noted, however, pt noted to have mucus-like discharge from the anus. Pt turned and repositioned for comfort.
[2020-09-26] MEDS: Norepinephrine 4mg/NS Premix 250 ML IV PRN (17:15)
--- NOTE | 2020-09-26 18:17 | Surgery Progress Note ---
Surgery Progress Note Subjective Additional Comments ill appearing on support no n/v Objective Last 24 Hour Vital Signs Date Time Temp Pulse Resp B/P (MAP) Pulse Ox O2 Delivery O2 Flow Rate FiO2 09/26/20 18:00 125 24 133/70 (91) 100 09/26/20 17:30 121 22 95/62 (73) 98 09/26/20 17:15 114/62 09/26/20 17:00 119 24 102/59 (73) 100 09/26/20 16:30 82 15 105/67 (80) 100 09/26/20 16:00 Mechanical Ventilator 09/26/20 16:00 80 09/26/20 16:00 98.9 90 23 129/69 (89) 100 09/26/20 16:00 125 09/26/20 15:30 124 24 105/71 (82) 100 09/26/20 15:15 74 17 80 09/26/20 15:00 125 25 114/66 (82) 100 09/26/20 14:30 128 27 98/58 (71) 100 09/26/20 14:00 127 24 91/61 (71) 100 09/26/20 13:30 128 27 100/65 (77) 100 09/26/20 13:00 125 26 94/55 (68) 100 09/26/20 12:30 126 26 98/65 (76) 100 09/26/20 12:00 Mechanical Ventilator 09/26/20 12:00 123 09/26/20 12:00 100 09/26/20 12:00 99.4 126 23 96/63 (74) 100 09/26/20 11:30 125 23 99/63 (75) 100 09/26/20 11:15 45 19 100 09/26/20 11:00 82 14 102/59 (73) 100 09/26/20 10:30 79 18 93/57 (69) 100 09/26/20 10:00 102 21 118/68 (85) 100 09/26/20 09:30 60 21 108/64 (79) 100 09/26/20 09:00 100.1 64 22 100/67 (78) 100 09/26/20 08:34 100.1 09/26/20 08:30 118 22 116/68 (84) 100 09/26/20 08:04 110 09/26/20 08:00 100 09/26/20 08:00 101.7 76 15 109/66 (80) 100 09/26/20 08:00 Mechanical Ventilator 09/26/20 08:00 128 09/26/20 07:30 117 13 106/65 (79) 100 09/26/20 07:05 119 22 100 09/26/20 07:00 126 20 105/59 (74) 100 09/26/20 06:30 128 32 09/26/20 06:00 128 32 119/72 (88) 100 09/26/20 05:30 119 31 99/72 (81) 100 09/26/20 05:00 119 30 96/68 (77) 100 09/26/20 04:30 121 38 122/96 (105) 99 09/26/20 04:00 Mechanical Ventilator 09/26/20 04:00 123 09/26/20 04:00 99.2 123 36 115/63 (80) 100 09/26/20 03:30 120 34 95/57 (70) 99 09/26/20 03:00 100 09/26/20 03:00 118 33 96/47 (63) 100 09/26/20 02:45 112 27 89/49 94 09/26/20 02:30 123 16 40 09/26/20 02:30 132 18 114/54 (74) 90 09/26/20 02:20 30 115/62 Mechanical Ventilator 100 09/26/20 02:15 120 30 114/68 95 09/26/20 02:00 106 35 105/59 (74) 100 09/26/20 01:58 114 30 40 09/26/20 01:00 84 30 104/69 (81) 100 09/26/20 00:00 Mechanical Ventilator 09/26/20 00:00 40 09/26/20 00:00 120 09/26/20 00:00 99.1 93 33 116/71 (86) 100 09/25/20 23:00 38 21 120/71 (87) 100 09/25/20 22:30 112 30 114/69 (84) 100 09/25/20 22:00 100 22 110/66 (81) 100 09/25/20 21:30 100 30 128/65 (86) 100 09/25/20 21:00 90 31 111/62 (78) 100 09/25/20 20:30 116 32 114/67 (83) 100 09/25/20 20:00 118 09/25/20 20:00 Mechanical Ventilator 09/25/20 20:00 40 09/25/20 20:00 99.2 108 32 109/56 (73) 100 09/25/20 19:30 110 30 113/66 (82) 100 09/25/20 19:00 115 32 110/66 (81) 100 09/25/20 18:54 117 33 40 09/25/20 18:30 108 24 101/67 (78) 100 I&O Intake and Output 09/25/20 09/26/20 19:00 07:00 Intake Total 2954.554 ml 1286 ml Output Total 1065 ml 330 ml Balance 1889.554 ml 956 ml IV Total 2174.554 ml 1241 ml Tube Feeding 540 ml 45 ml Other 240 ml Output Urine Total 1065 ml 330 ml Dressing: saturated Cardiovascular: RSR Respiratory: decreased breath sounds Abdomen: soft, non-tender, present bowel sounds Extremities: no tenderness, no cyanosis Laboratory Tests Test 09/26/20 05:00 White Blood Count 6.2 K/UL (4.8-10.8) # Red Blood Count 3.17 M/UL (4.70-6.10) L Hemoglobin 10.0 G/DL (14.2-18.0) L Hematocrit 29.0 % (42.0-52.0) L Mean Corpuscular Volume 92 FL (80-99) Mean Corpuscular Hemoglobin 31.6 PG (27.0-31.0) H Mean Corpuscular Hemoglobin Concent 34.5 G/DL (32.0-36.0) Red Cell Distribution Width 15.3 % (11.6-14.8) H Platelet Count 43 K/UL (150-450) L Mean Platelet Volume 11.7 FL (6.5-10.1) H Neutrophils (%) (Auto) % (45.0-75.0) Lymphocytes (%) (Auto) % (20.0-45.0) Monocytes (%) (Auto) % (1.0-10.0) Eosinophils (%) (Auto) % (0.0-3.0) Basophils (%) (Auto) % (0.0-2.0) Differential Total Cells Counted 100 Neutrophils % (Manual) 71 % (45-75) Lymphocytes % (Manual) 12 % (20-45) L Monocytes % (Manual) 11 % (1-10) H Eosinophils % (Manual) 3 % (0-3) Basophils % (Manual) 0 % (0-2) Band Neutrophils 3 % (0-8) Platelet Estimate Decreased L Platelet Morphology Giant Platelets Occasional Anisocytosis 1+ Erythrocyte Sedimentation Rate 68 MM/HR (0-20) H Sodium Level 140 MMOL/L (136-145) Potassium Level 4.1 MMOL/L (3.5-5.1) Chloride Level 111 MMOL/L (98-107) H Carbon Dioxide Level 18 MMOL/L (21-32) L Anion Gap 11 mmol/L (5-15) Blood Urea Nitrogen 62 mg/dL (7-18) H Creatinine 3.7 MG/DL (0.55-1.30) H Estimat Glomerular Filtration Rate 16.1 mL/min (>60) Glucose Level 134 MG/DL (74-106) H Uric Acid 7.6 MG/DL (2.6-7.2) H Calcium Level 6.5 MG/DL (8.5-10.1) L Phosphorus Level 3.4 MG/DL (2.5-4.9) Magnesium Level 2.5 MG/DL (1.8-2.4) H Total Bilirubin 1.1 MG/DL (0.2-1.0) H Direct Bilirubin 0.7 MG/DL (0.0-0.3) H Aspartate Amino Transf (AST/SGOT) 114 U/L (15-37) H Alanine Aminotransferase (ALT/SGPT) 47 U/L (12-78) Alkaline Phosphatase 281 U/L (46-116) H C-Reactive Protein, Quantitative 10.4 mg/dL (0.00-0.90) H Total Protein 5.6 G/DL (6.4-8.2) L Albumin 2.1 G/DL (3.4-5.0) L Globulin 3.5 g/dL Albumin/Globulin Ratio 0.6 (1.0-2.7) L Vitamin D 25-Hydroxy Pending 25-Hydroxy Vitamin D2 Pending 25-Hydroxy Vitamin D3 Pending Plan Problems: (1) Septic shock Assessment & Plan: anemia lactic acidosis elevated t bili / d bili imaging reviewed ill appearing weaning pressors as tolerated local care provided will follow with recs thank you Pt presented on admission with multiple Pressure Injuries.Cat 3 Skin Tear pily L chest. Base of wound is moist ,viable with 100% flap loss.No exudate noted. Cat 2 Skin Tear ventral L forearm. 20% skin flap loss,80% flap in-situ. Cat 2 Skin tear dorsal L forearm with 10% flap loss,90% skin flap in situ. Sacral DTPI(L)12cm x (W)17.5cm. Base of Pressure injury maroon with scattered Purpuric areas within base of injury. Surrounding non-blanchable erythema without induration. Perianal area is erythematous. Partial Thickness Pressure injury at head of penis. Base of wound is moist and viable. Both R and L Heels are Boggy with Non-blanchable erythema. Tx.Plan: Apply Optifoam drsgs to L chest, L forearm. Change every 7 days and prn. Apply Moisture Barrier Past to sacrum. Cover with Optifoam drsg. Change every 3 days and prn. Apply Moisture Barrier Paste to penis and Perianal areas with each incontinence care. Apply Cavilon Skin Barrier to both heels. Cover each heel with Optifoam drsg. Change every 7 days and prn. Reposition at least every 2hours or as tolerated. Off-load heels with Pillow. APM/JARED Mattress. DAILY ESTIMATED NEEDS: Needs based on Critical care, wound, ARF/ 77kg abw 22-28 kcals/kg 4464-3119 total kcals 0.8-1.25 (increase w/ renal improvement) g protein/kg 61-96 g total protein 20-25 mL/kg 6179-0281 total fluid mLs NUTRITION DIAGNOSIS: Swallowing difficulty r/t respiratory failure as evidenced by orally intubated upon adm, now s/p code blue (09/22), on pressor support. CURRENT TF:npo PO DIET RECOMMENDATIONS: ASSISTANT B[employer] COACH eval post extubation ENTERAL NUTRITION RECOMMENDATIONS: Glucerna 1.2 @ 60ml/hr x 24 hrs to provide 1440ml, 1728kcal, 86g prot, 1159ml free water * WITH HEMODYNAMIC STABILITY -> Initiate Glucerna 1.2 @ 20ml/hrs x 6 hrs, advance 10ml q 4-6 hrs as tolerated to goal -> Flush per MD. HOB over 30 degrees -> Monitor renal fxn and lytes, need for renal TF of Nepro Without hemodynamic stability: rec trophic feeding of Glucerna 1.2 @ 10- 15ml/hr x 24 hrs ADDITIONAL RECOMMENDATIONS: * Calibrated bedscale wt * Monitor hemodynamic stability, ability to feed * Monitor renal fxn and lytes, need for renal TF formula (creat wnl last adm -> 5.2 at this time, K wnl, phos and mag low) * NISS w/ TF * Wound healing: f/up w/ WC eval, add Omar BID w/ TF (2) Multiorgan failure (3) Rapid atrial fibrillation (4) Compression fracture of L3 vertebra (5) Social isolation (6) Impaired mobility and ADLs (7) UTI (urinary tract infection) (8) Suicidal ideations (9) HTN (hypertension) (10) Failure to thrive in adult (11) Renal failure (ARF), acute on chronic (12) ANGI (acute kidney injury) (13) BPH (benign prostatic hyperplasia) (14) Schizoaffective disorder (15) Sick sinus syndrome (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 There is r etrocardiac consolidation which is increased. Left upper lung, right lung and pleural space are clear. There is a left chest bifocal pacemaker. Stable satisfactory positions of endotracheal and orogastric tubes. Impression: Increased left pleural effusion and retrocardiac consolidation. Eber Slater Sep 26, 2020 18:17
[2020-09-26] MEDS: Dyna-Hex 2% Top Sol 2oz TOPIC SCH (20:27)
--- NOTE | 2020-09-26 22:00 | NUR ---
NURSE NOTES: [id number] insulin coverage done
[2020-09-27] VITALS (75 sets, daily range): BP systolic 81–144; BP diastolic 40–74
--- NOTE | 2020-09-27 00:05 | NUR ---
NURSE NOTES: BS [id number]
[2020-09-27] MEDS: Midodrine 10mg tab ORAL SCH ×3 (06:00→20:49)
[2020-09-27 06:43] LABS: HEMATOCRIT 25.1 % (42.0-52.0); MEAN CORPUSCULAR VOLUME 89 FL (80-99); PLATELET COUNT 41 K/UL (150-450); RED BLOOD COUNT 2.82 M/UL (4.70-6.10); RED CELL DISTRIBUTION WIDTH 14.7 % (11.6-14.8); WHITE BLOOD COUNT 8.7 K/UL (4.8-10.8)
--- NOTE | 2020-09-27 07:55 | NUR ---
NURSE HAND-OFF REPORT: Latest Vital Signs: Temperature 98.9 , Pulse 79 , B/P 113 /63 , Respiratory Rate 27 , O2 SAT 100 , Mechanical Ventilator, O2 Flow Rate . Vital Sign Comment: EKG Rhythm: Sinus Rhythm Rhythm change?: N Notified?: Jerrod -Dr. Cherie STOUT Response: Order Received& Read Back Latest Robertson Fall Score: 75 Fall Risk: High Risk Safety Measures: Call light Within Reach, Bed Alarm Zone 1, Side Rails Side Rails x2, Bed position Low and Locked. Fall Precautions: Yellow Socks Yellow Gown Door Sign Patient Fall Education Report given to renato sapp using jae rn .
[2020-09-27 07:59] LABS: ALBUMIN 2.1 G/DL (3.4-5.0); ALBUMIN/GLOBULIN RATIO 0.6 (1.0-2.7); BILIRUBIN,TOTAL 1.1 MG/DL (0.2-1.0); CREATININE 3.1 MG/DL (0.55-1.30); POTASSIUM 3.7 MMOL/L (3.5-5.1)
[2020-09-27 08:03] LABS: BILIRUBIN,DIRECT 0.5 MG/DL (0.0-0.3)
--- NOTE | 2020-09-27 08:07 | NUR ---
RD ASSESSMENT & RECOMMENDATIONS SEE CARE ACTIVITY FOR COMPLETE ASSESSMENT DAILY ESTIMATED NEEDS: Needs based on Critical care, wound, ARF/ 77kg abw 22-28 kcals/kg 5854-0660 total kcals 0.8-1.25 (increase w/ renal improvement) g protein/kg 61-96 g total protein 20-25 mL/kg 9757-3509 total fluid mLs NUTRITION DIAGNOSIS: Swallowing difficulty r/t respiratory failure as evidenced by orally intubated upon adm, now s/p code blue (09/22), on pressor support. CURRENT TF: Glucerna 1.2 @45ml/hr-> HELD ENTERAL NUTRITION RECOMMENDATIONS: Glucerna 1.2 @ 60ml/hr x 24 hrs to provide 1440ml, 1728kcal, 86g prot, 1159ml free water * WITH HEMODYNAMIC STABILITY -> Initiate Glucerna 1.2 @ 20ml/hrs x 6 hrs, advance 10ml q 4-6 hrs as tolerated to goal -> Flush per MD. HOB over 30 degrees Without hemodynamic stability: rec trophic feeding of Glucerna 1.2 @ 10-15ml/hr x 24 hrs ADDITIONAL RECOMMENDATIONS: * Calibrated bedscale wt * Monitor hemodynamic stability, ability to feed * Monitor renal fxn and lytes, need for renal TF formula (creat wnl last adm -> 3.7 at this time, K wnl) * NISS w/ TF * Wound healing: add Omar BID w/ TF .
[2020-09-27 08:08] LABS: PHOSPHORUS 2.8 MG/DL (2.5-4.9)
--- NOTE | 2020-09-27 08:28 | Infectious Diseases Prog Note ---
Assessment/Plan 75yo M with: Septic shock MRSA bacteremia CODE BLUE 09/21, s/p ROSC Pneumonia, c/f aspiration Hypoxic resp failure s/p intubation 09/21 R/o UTI Hypotension on pressors ANGI, Cr in 5s Elevated AST to 100s Febrile Normal WBC Lymphopenia 09/21 BCx +MRSA UA+ UCx E.coli S-CTX Resp cx +MSSA COVID rapid neg, PCR NEG CT chest: 1. Almost complete opacification of the left mainstem bronchus, segmental and subsegmental bronchi with presumed debris. Tree-in-bud nodularity along with patchy airspace consolidations are identified in the bilateral lower lobes, left greater than right. Constellation of findings are suspicious for aspiration pneumonia. 2. Left lower lobe and lingular subsegmental atelectasis. 3. 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 TTE: No vegetations 09/23 BCx NTD 09/25 BCx ordered HyperNa to 170 on admission ANGI on CKD, Cr in 5s, worsening SNF resident Dementia Plan: Cont meropenem #6/7 Cont vanco IV #7, duration TBD Recommend CHANDLER given presenting sepsis w/ MRSA bacteremia of unclear source (resp cx has MSSA) F/u repeat BCx 09/23 & 09/25 - ensure clear 09/22 SP amikacin x1 09/21 SP Zosyn in ED Monitor CBC/CMP Monitor temp curve, hemodynamics Monitor resp status D/w RN Thank you for this consult. [facility] will continue to follow. Subjective Allergies: Coded Allergies: No Known Allergies (Unverified , 07/22/20) AF x24hrs BCx +MRSA WBC 8.7 NAD on vent Objective Last 24 Hour Vital Signs Date Time Temp Pulse Resp B/P (MAP) Pulse Ox O2 Delivery O2 Flow Rate FiO2 09/27/20 07:00 79 27 113/63 (80) 100 09/27/20 06:45 88 25 112/58 (76) 100 09/27/20 06:30 112 50 09/27/20 06:30 93 29 109/66 (80) 100 09/27/20 06:15 87 18 125/60 (81) 100 09/27/20 06:00 85 16 109/64 (79) 100 09/27/20 05:45 85 22 114/70 (85) 100 12/28/20 05:30 88 20 116/55 (75) 100 09/27/20 05:15 88 21 130/64 (86) 100 09/27/20 05:00 88 16 120/72 (88) 100 09/27/20 04:45 85 16 110/66 (81) 100 09/27/20 04:35 90 28 108/57 (74) 100 09/27/20 04:15 89 24 104/62 (76) 99 09/27/20 04:00 85 18 118/67 (84) 100 09/27/20 04:00 Mechanical Ventilator 09/27/20 04:00 91 09/27/20 04:00 80 09/27/20 03:45 88 20 115/54 (74) 100 09/27/20 03:30 87 23 106/58 (74) 100 09/27/20 03:25 79 23 80 09/27/20 03:15 86 23 110/64 (79) 100 09/27/20 03:00 88 21 109/63 (78) 100 09/27/20 02:45 91 28 92/47 (62) 97 09/27/20 02:30 88 20 108/55 (72) 100 09/27/20 02:15 86 21 105/54 (71) 100 09/27/20 02:00 85 18 115/65 (82) 100 09/27/20 01:45 79 19 106/62 (77) 100 09/27/20 01:30 128 18 104/60 (75) 100 09/27/20 01:15 93 22 96/57 (70) 100 09/27/20 01:00 98 17 124/61 (82) 100 09/27/20 00:45 129 23 111/66 (81) 100 09/27/20 00:30 128 23 121/69 (86) 100 09/27/20 00:15 123 15 110/69 (83) 100 09/27/20 00:00 98.9 113 17 102/66 (78) 100 09/27/20 00:00 96 09/27/20 00:00 80 09/27/20 00:00 Mechanical Ventilator 09/26/20 23:56 137 09/26/20 23:45 128 14 98/51 (67) 100 09/26/20 23:30 116 12 117/67 (84) 100 09/26/20 23:15 126 16 119/65 (83) 100 09/26/20 23:00 101 16 117/55 (75) 100 09/26/20 22:45 97 18 113/68 (83) 100 09/26/20 22:41 90 18 80 09/26/20 22:30 102 17 106/59 (75) 100 09/26/20 22:15 116 22 115/56 (75) 99 09/26/20 22:00 94 19 112/61 (78) 100 09/26/20 21:45 99 20 99/68 (78) 100 09/26/20 21:30 125 17 107/63 (78) 100 09/26/20 21:15 103 21 102/68 (79) 100 09/26/20 21:00 Mechanical Ventilator 09/26/20 21:00 109 21 112/61 (78) 100 09/26/20 20:45 116 22 110/67 (81) 100 09/26/20 20:30 115 21 111/63 (79) 100 09/26/20 20:15 113 30 98/63 (75) 100 09/26/20 20:00 103 09/26/20 20:00 Mechanical Ventilator 09/26/20 20:00 80 09/26/20 20:00 98.8 119 19 101/62 (75) 100 09/26/20 19:30 126 19 80 09/26/20 19:00 117 20 93/55 (68) 100 09/26/20 18:30 124 30 121/70 (87) 100 09/26/20 18:00 125 24 133/70 (91) 100 09/26/20 17:30 121 22 95/62 (73) 98 09/26/20 17:15 114/62 09/26/20 17:00 119 24 102/59 (73) 100 09/26/20 16:30 82 15 105/67 (80) 100 09/26/20 16:00 Mechanical Ventilator 09/26/20 16:00 80 09/26/20 16:00 98.9 90 23 129/69 (89) 100 09/26/20 16:00 125 09/26/20 15:30 124 24 105/71 (82) 100 09/26/20 15:15 74 17 80 09/26/20 15:00 125 25 114/66 (82) 100 09/26/20 14:30 128 27 98/58 (71) 100 09/26/20 14:00 127 24 91/61 (71) 100 09/26/20 13:30 128 27 100/65 (77) 100 09/26/20 13:00 125 26 94/55 (68) 100 09/26/20 12:30 126 26 98/65 (76) 100 09/26/20 12:00 Mechanical Ventilator 09/26/20 12:00 123 09/26/20 12:00 100 09/26/20 12:00 99.4 126 23 96/63 (74) 100 09/26/20 11:30 125 23 99/63 (75) 100 09/26/20 11:15 45 19 100 09/26/20 11:00 82 14 102/59 (73) 100 09/26/20 10:30 79 18 93/57 (69) 100 09/26/20 10:00 102 21 118/68 (85) 100 09/26/20 09:30 60 21 108/64 (79) 100 09/26/20 09:00 100.1 64 22 100/67 (78) 100 09/26/20 08:34 100.1 09/26/20 08:30 118 22 116/68 (84) 100 Height (Feet): 5 Height (Inches): 9.00 Weight (Pounds): 190 Gen: NAD HEENT: NCAT Pulm: BL chest rise Abd: Non-distended Ext: No c/c/e Skin: No visible rashes Neuro: Awake Laboratory Tests Test 09/27/20 05:18 White Blood Count 8.7 K/UL (4.8-10.8) Red Blood Count 2.82 M/UL (4.70-6.10) L Hemoglobin 9.0 G/DL (14.2-18.0) L Hematocrit 25.1 % (42.0-52.0) L Mean Corpuscular Volume 89 FL (80-99) Mean Corpuscular Hemoglobin 32.1 PG (27.0-31.0) H Mean Corpuscular Hemoglobin Concent 36.1 G/DL (32.0-36.0) H Red Cell Distribution Width 14.7 % (11.6-14.8) Platelet Count 41 K/UL (150-450) L Mean Platelet Volume 15.5 FL (6.5-10.1) H Neutrophils (%) (Auto) % (45.0-75.0) Lymphocytes (%) (Auto) % (20.0-45.0) Monocytes (%) (Auto) % (1.0-10.0) Eosinophils (%) (Auto) % (0.0-3.0) Basophils (%) (Auto) % (0.0-2.0) Neutrophils % (Manual) Pending Lymphocytes % (Manual) Pending Platelet Estimate Pending Platelet Morphology Pending Sodium Level 139 MMOL/L (136-145) Potassium Level 3.7 MMOL/L (3.5-5.1) Chloride Level 110 MMOL/L (98-107) H Carbon Dioxide Level 20 MMOL/L (21-32) L Anion Gap 9 mmol/L (5-15) Blood Urea Nitrogen 56 mg/dL (7-18) H Creatinine 3.1 MG/DL (0.55-1.30) H Estimat Glomerular Filtration Rate 19.8 mL/min (>60) Glucose Level 113 MG/DL (74-106) H Calcium Level 7.0 MG/DL (8.5-10.1) L Phosphorus Level 2.8 MG/DL (2.5-4.9) Magnesium Level 1.9 MG/DL (1.8-2.4) Total Bilirubin 1.1 MG/DL (0.2-1.0) H Direct Bilirubin 0.5 MG/DL (0.0-0.3) H Aspartate Amino Transf (AST/SGOT) 58 U/L (15-37) H Alanine Aminotransferase (ALT/SGPT) 37 U/L (12-78) Alkaline Phosphatase 182 U/L (46-116) H C-Reactive Protein, Quantitative 22.7 mg/dL (0.00-0.90) H Pro-B-Type Natriuretic Peptide 15884 pg/mL (0-125) H Total Protein 5.5 G/DL (6.4-8.2) L Albumin 2.1 G/DL (3.4-5.0) L Globulin 3.4 g/dL Albumin/Globulin Ratio 0.6 (1.0-2.7) L Random Vancomycin Level 23.1 ug/mL Current Medications Medications (Trade) Dose Ordered Sig/Fabrizio Route PRN Reason Start Time Stop Time Status Last Admin Dose Admin Acetaminophen (Tylenol) 650 mg Q4H PRN NG Mild Pain (Pain Scale 1-3) 09/23/20 13:30 10/23/20 13:29 09/23/20 13:42 Acetaminophen (Tylenol) 650 mg Q4H PRN NG Temp >100.5 09/23/20 13:30 10/23/20 13:29 09/26/20 08:04 Amiodarone HCl (Cordarone) 400 mg TID NG 09/26/20 14:30 12/24/20 21:14 09/26/20 17:56 Chlorhexidine Gluconate (Jennifer-Hex 2%) 1 applic DAILY@2000 TOPIC 09/22/20 20:00 12/21/20 19:59 09/26/20 20:27 Dextrose/Sodium Chloride 1,000 ml @ 100 mls/hr Q10H IV 09/22/20 11:00 10/22/20 10:59 09/26/20 23:00 Digoxin (Lanoxin) 0.125 mg DAILY ORAL 09/24/20 09:00 12/23/20 08:59 09/26/20 08:04 Haloperidol Lactate (Haldol) 5 mg Q6H PRN IM Agitation 09/21/20 23:45 11/05/20 23:44 Heparin Sodium (Porcine) (Heparin 5000 units/ml) 5,000 units EVERY 12 HOURS SUBQ 09/22/20 09:00 11/06/20 08:59 09/22/20 21:00 Lorazepam (Ativan 2mg/ml 1ml) 2 mg Q2H PRN IV For Anxiety 09/21/20 23:45 09/28/20 23:44 09/26/20 02:15 Meropenem 500 mg/ Sodium Chloride 55 ml @ 110 mls/hr Q12HR IVPB 09/22/20 10:00 09/28/20 09:59 09/26/20 21:12 Midodrine (Pro-Amatine) 10 mg Q8HR ORAL 09/26/20 14:30 12/25/20 14:29 09/27/20 06:00 Morphine Sulfate (Morphine Sulfate) 4 mg Q4H PRN IVP Severe Pain (Pain Scale 7-10) 09/21/20 23:45 09/28/20 23:44 Norepinephrine Bitartrate 250 ml @ 7.5 mls/hr Q24H PRN IV For hypotension 09/26/20 13:15 09/29/20 13:09 09/26/20 17:15 Ondansetron HCl (Zofran) 4 mg Q6H PRN IVP Nausea & Vomiting 09/21/20 23:45 10/21/20 23:44 Pantoprazole (Protonix) 40 mg Q12HR IVP 09/22/20 21:00 10/22/20 08:59 09/26/20 21:11 Polyethylene Glycol (Miralax) 17 gm DAILYPRN PRN ORAL Constipation 09/21/20 23:45 10/21/20 23:44 Vancomycin HCl ([facility] pharmacy to dose) 1 ea DAILY PRN MISC PER RX PROTOCOL 09/22/20 07:45 10/22/20 07:44 Vitamin D (Vitamin D) 20,000 unit DAILY GT 09/26/20 09:00 09/27/20 09:01 09/26/20 09:47 Rosaura Aviles M.D. Sep 27, 2020 08:28
[2020-09-27] MEDS: Amiodarone 200mg tab NG SCH ×3 (08:47→17:27)
[2020-09-27] MEDS: Pantoprazole Inj IVP SCH ×2 (08:48→20:48)
[2020-09-27] MEDS: Heparin 5000 units/ml inj SUBQ SCH ×2 (08:48→20:49)
[2020-09-27] MEDS: Digoxin 0.125mg tab ORAL SCH (08:48)
[2020-09-27] MEDS: Meropenem 500mg/NS 55ml IVPB SCH ×4 (08:48→20:49)
--- NOTE | 2020-09-27 08:55 | NUR ---
NURSE NOTES: Dr. Mata notified of patient bmp labs and urine output, no verbal orders given.
--- NOTE | 2020-09-27 10:15 | NUR ---
NURSE NOTES: Dr. Aviles updated on the patient condition, advised to notify the paper cup handle machine operator for an order to have CHANDLER done. will bring up recommendation to dr. amor.
--- NOTE | 2020-09-27 10:45 | Nephrology Progress Note ---
Assessment/Plan Problem List: (1) ANGI (acute kidney injury) (2) Septic shock (3) Hypernatremia (4) NSTEMI (non-ST elevated myocardial infarction) (5) Acute respiratory failure (6) Dehydration (7) Rhabdomyolysis Assessment Sepsis, shock Acute renal failure Acute respiratory failure Hypernatremia, dehydration Non-STEMI Plan September 27: Renal parameters improving. Hemodynamically stable. Continue per current treatment plan. September 26: Renal parameters improving. Midodrine added to keep the blood pressure over 95 systolic. Albumin bolus given. Waiting for vitamin D level. Continue to monitor renal parameters and electrolytes. September 25: Discussed with KRYSTYNA [place]. Off pressors. Renal parameters improving. Will cut down IV fluid and give albumin bolus. Will give high dose of vitamin D for 3 days. Will check vitamin D level. September 24: Seen in ICU. Remains intubated. Urine output improved. Serum creatinine lower. Serum CPK lower. Abnormal electrolytes addressed. Continue to monitor renal parameters. Albumin bolus given. IV rate down to 150 cc an hour. September 23: Patient intubated on ventilator. Full code. Labs reviewed. IV fluid adjusted. Abnormal electrolytes addressed. Monitor CPK for rhabdo Previously: Fluid challenge IV hydration Albumin 5% Water through NG tube Monitor renal parameters Antibiotics Urine studies Avoid nephrotoxic's Poor prognosis Patient full code Per orders Subjective ROS Limited/Unobtainable: Yes Objective Objective Last 24 Hour Vital Signs Date Time Temp Pulse Resp B/P (MAP) Pulse Ox O2 Delivery O2 Flow Rate FiO2 09/27/20 10:00 89 18 113/69 (84) 100 09/27/20 09:00 86 18 123/64 (83) 99 09/27/20 08:48 93 09/27/20 08:30 90 13 105/54 (71) 100 09/27/20 08:00 Mechanical Ventilator 09/27/20 08:00 98.9 87 21 112/52 (72) 100 09/27/20 08:00 94 09/27/20 08:00 60 09/27/20 07:30 86 28 119/66 (83) 100 09/27/20 07:01 84 31 60 09/27/20 07:00 79 27 113/63 (80) 100 09/27/20 06:45 88 25 112/58 (76) 100 09/27/20 06:30 112 50 09/27/20 06:30 93 29 109/66 (80) 100 09/27/20 06:15 87 18 125/60 (81) 100 09/27/20 06:00 85 16 109/64 (79) 100 09/27/20 05:45 85 22 114/70 (85) 100 09/27/20 05:30 88 20 116/55 (75) 100 09/27/20 05:15 88 21 130/64 (86) 100 09/27/20 05:00 88 16 120/72 (88) 100 09/27/20 04:45 85 16 110/66 (81) 100 09/27/20 04:35 90 28 108/57 (74) 100 09/27/20 04:15 89 24 104/62 (76) 99 09/27/20 04:00 85 18 118/67 (84) 100 09/27/20 04:00 Mechanical Ventilator 09/27/20 04:00 91 09/27/20 04:00 80 09/27/20 03:45 88 20 115/54 (74) 100 09/27/20 03:30 87 23 106/58 (74) 100 09/27/20 03:25 79 23 80 09/27/20 03:15 86 23 110/64 (79) 100 09/27/20 03:00 88 21 109/63 (78) 100 09/27/20 02:45 91 28 92/47 (62) 97 09/27/20 02:30 88 20 108/55 (72) 100 09/27/20 02:15 86 21 105/54 (71) 100 09/27/20 02:00 85 18 115/65 (82) 100 09/27/20 01:45 79 19 106/62 (77) 100 09/27/20 01:30 128 18 104/60 (75) 100 09/27/20 01:15 93 22 96/57 (70) 100 09/27/20 01:00 98 17 124/61 (82) 100 09/27/20 00:45 129 23 111/66 (81) 100 09/27/20 00:30 128 23 121/69 (86) 100 09/27/20 00:15 123 15 110/69 (83) 100 09/27/20 00:00 98.9 113 17 102/66 (78) 100 09/27/20 00:00 96 09/27/20 00:00 80 09/27/20 00:00 Mechanical Ventilator 09/26/20 23:56 137 09/26/20 23:45 128 14 98/51 (67) 100 09/26/20 23:30 116 12 117/67 (84) 100 09/26/20 23:15 126 16 119/65 (83) 100 09/26/20 23:00 101 16 117/55 (75) 100 09/26/20 22:45 97 18 113/68 (83) 100 09/26/20 22:41 90 18 80 09/26/20 22:30 102 17 106/59 (75) 100 09/26/20 22:15 116 22 115/56 (75) 99 09/26/20 22:00 94 19 112/61 (78) 100 09/26/20 21:45 99 20 99/68 (78) 100 09/26/20 21:30 125 17 107/63 (78) 100 09/26/20 21:15 103 21 102/68 (79) 100 09/26/20 21:00 Mechanical Ventilator 09/26/20 21:00 109 21 112/61 (78) 100 09/26/20 20:45 116 22 110/67 (81) 100 09/26/20 20:30 115 21 111/63 (79) 100 09/26/20 20:15 113 30 98/63 (75) 100 09/26/20 20:00 103 09/26/20 20:00 Mechanical Ventilator 09/26/20 20:00 80 09/26/20 20:00 98.8 119 19 101/62 (75) 100 09/26/20 19:30 126 19 80 09/26/20 19:00 117 20 93/55 (68) 100 09/26/20 18:30 124 30 121/70 (87) 100 09/26/20 18:00 125 24 133/70 (91) 100 09/26/20 17:30 121 22 95/62 (73) 98 09/26/20 17:15 114/62 09/26/20 17:00 119 24 102/59 (73) 100 09/26/20 16:30 82 15 105/67 (80) 100 09/26/20 16:00 Mechanical Ventilator 09/26/20 16:00 80 09/26/20 16:00 98.9 90 23 129/69 (89) 100 09/26/20 16:00 125 09/26/20 15:30 124 24 105/71 (82) 100 09/26/20 15:15 74 17 80 09/26/20 15:00 125 25 114/66 (82) 100 09/26/20 14:30 128 27 98/58 (71) 100 09/26/20 14:00 127 24 91/61 (71) 100 09/26/20 13:30 128 27 100/65 (77) 100 09/26/20 13:00 125 26 94/55 (68) 100 09/26/20 12:30 126 26 98/65 (76) 100 09/26/20 12:00 Mechanical Ventilator 09/26/20 12:00 123 09/26/20 12:00 100 09/26/20 12:00 99.4 126 23 96/63 (74) 100 09/26/20 11:30 125 23 99/63 (75) 100 09/26/20 11:15 45 19 100 09/26/20 11:00 82 14 102/59 (73) 100 Intake and Output 09/26/20 09/27/20 19:00 07:00 Intake Total 1803.125 ml 1352.2 ml Output Total 880 ml 865 ml Balance 923.125 ml 487.2 ml IV Total 1443.125 ml 1352.2 ml Other 360 ml Output Urine Total 880 ml 865 ml Laboratory Tests 09/27/20 05:18: White Blood Count 8.7, Red Blood Count 2.82L, Hemoglobin 9.0L, Hematocrit 25.1L, Mean Corpuscular Volume 89, Mean Corpuscular Hemoglobin 32.1H, Mean Corpuscular Hemoglobin Concent 36.1H, Red Cell Distribution Width 14.7, Platelet Count 41L, Mean Platelet Volume 15.5H, Neutrophils (%) (Auto) , Lymphocytes (%) (Auto) , Monocytes (%) (Auto) , Eosinophils (%) (Auto) , Basophils (%) (Auto) , Differential Total Cells Counted 100, Neutrophils % (Manual) 76H, Lymphocytes % (Manual) 15L, Monocytes % (Manual) 4, Eosinophils % (Manual) 5H, Basophils % (Manual) 0, Band Neutrophils 0, Platelet Estimate DecreasedL, Platelet Morphology Normal, Polychromasia 1+, Anisocytosis 1+, Sodium Level 139, Potassium Level 3.7, Chloride Level 110H, Carbon Dioxide Level 20L, Anion Gap 9, Blood Urea Nitrogen 56H, Creatinine 3.1H, Estimat Glomerular Filtration Rate 19.8, Glucose Level 113H, Calcium Level 7.0L, Phosphorus Level 2.8, Magnesium Level 1.9, Total Bilirubin 1.1H, Direct Bilirubin 0.5H, Aspartate Amino Transf (AST/SGOT) 58H, Alanine Aminotransferase (ALT/SGPT) 37, Alkaline Phosphatase 182H, C-Reactive Protein, Quantitative 22.7H, Pro-B-Type Natriuretic Peptide [id number], Total Protein 5.5L, Albumin 2.1L, Globulin 3.4, Albumin/Globulin Ratio 0.6L, Random Vancomycin Level 23.1 Height (Feet): 5 Height (Inches): 9.00 Weight (Pounds): 190 General Appearance: no apparent distress EENT: other - Intubated on ventilator Cardiovascular: tachycardia Respiratory/Chest: decreased breath sounds Abdomen: distended Objective No change Gelacio Mata MD Sep 27, 2020 10:45
--- NOTE | 2020-09-27 10:55 | NUR ---
NURSE NOTES: Dr garza at the bedside assessing patient and respiratory status. would like to have patient weaning and have patient extubated if possible.
--- NOTE | 2020-09-27 10:56 | Pulmonolgy Critical Care Note ---
Critical Care - Asmt/Plan Problems: (1) Multiorgan failure (2) Septic shock (3) Acute respiratory failure (4) Rapid atrial fibrillation (5) ARF (acute renal failure) (6) Pulseless ventricular tachycardia (7) Cardiopulmonary arrest (8) Schizoaffective disorder Respiratory: monitor respiratory rate, adjust FIO2 Cardiac: continue to monitor HR/BP Renal: F/U I&O, check electrolytes Infectious Disease: check cultures Gastrointestinal: continue feedings/current rate Endocrine: monitor blood sugar, continue sliding scale insulin Hematologic: monitor H/H, transfuse if hgb<8.5 Neurologic: PRN Ativan, PRN Morphine, keep patient comfortable Time Spent (Minutes): 40 Notes Reviewed: top lifter, renal Discussed with: nurses, consultants, case preparer and linermanager department - Objective Last 24 Hour Vital Signs Date Time Temp Pulse Resp B/P (MAP) Pulse Ox O2 Delivery O2 Flow Rate FiO2 09/27/20 10:00 89 18 113/69 (84) 100 09/27/20 09:00 86 18 123/64 (83) 99 09/27/20 08:48 93 09/27/20 08:30 90 13 105/54 (71) 100 09/27/20 08:00 Mechanical Ventilator 09/27/20 08:00 98.9 87 21 112/52 (72) 100 09/27/20 08:00 94 09/27/20 08:00 60 09/27/20 07:30 86 28 119/66 (83) 100 09/27/20 07:01 84 31 60 09/27/20 07:00 79 27 113/63 (80) 100 09/27/20 06:45 88 25 112/58 (76) 100 09/27/20 06:30 112 50 09/27/20 06:30 93 29 109/66 (80) 100 09/27/20 06:15 87 18 125/60 (81) 100 09/27/20 06:00 85 16 109/64 (79) 100 09/27/20 05:45 85 22 114/70 (85) 100 09/27/20 05:30 88 20 116/55 (75) 100 09/27/20 05:15 88 21 130/64 (86) 100 09/27/20 05:00 88 16 120/72 (88) 100 09/27/20 04:45 85 16 110/66 (81) 100 09/27/20 04:35 90 28 108/57 (74) 100 09/27/20 04:15 89 24 104/62 (76) 99 09/27/20 04:00 85 18 118/67 (84) 100 09/27/20 04:00 Mechanical Ventilator 09/27/20 04:00 91 09/27/20 04:00 80 09/27/20 03:45 88 20 115/54 (74) 100 09/27/20 03:30 87 23 106/58 (74) 100 09/27/20 03:25 79 23 80 09/27/20 03:15 86 23 110/64 (79) 100 09/27/20 03:00 88 21 109/63 (78) 100 09/27/20 02:45 91 28 92/47 (62) 97 09/27/20 02:30 88 20 108/55 (72) 100 09/27/20 02:15 86 21 105/54 (71) 100 09/27/20 02:00 85 18 115/65 (82) 100 09/27/20 01:45 79 19 106/62 (77) 100 09/27/20 01:30 128 18 104/60 (75) 100 09/27/20 01:15 93 22 96/57 (70) 100 09/27/20 01:00 98 17 124/61 (82) 100 09/27/20 00:45 129 23 111/66 (81) 100 09/27/20 00:30 128 23 121/69 (86) 100 09/27/20 00:15 123 15 110/69 (83) 100 09/27/20 00:00 98.9 113 17 102/66 (78) 100 09/27/20 00:00 96 09/27/20 00:00 80 09/27/20 00:00 Mechanical Ventilator 09/26/20 23:56 137 09/26/20 23:45 128 14 98/51 (67) 100 09/26/20 23:30 116 12 117/67 (84) 100 09/26/20 23:15 126 16 119/65 (83) 100 09/26/20 23:00 101 16 117/55 (75) 100 09/26/20 22:45 97 18 113/68 (83) 100 09/26/20 22:41 90 18 80 09/26/20 22:30 102 17 106/59 (75) 100 09/26/20 22:15 116 22 115/56 (75) 99 09/26/20 22:00 94 19 112/61 (78) 100 09/26/20 21:45 99 20 99/68 (78) 100 09/26/20 21:30 125 17 107/63 (78) 100 09/26/20 21:15 103 21 102/68 (79) 100 09/26/20 21:00 Mechanical Ventilator 09/26/20 21:00 109 21 112/61 (78) 100 09/26/20 20:45 116 22 110/67 (81) 100 09/26/20 20:30 115 21 111/63 (79) 100 09/26/20 20:15 113 30 98/63 (75) 100 09/26/20 20:00 103 09/26/20 20:00 Mechanical Ventilator 09/26/20 20:00 80 09/26/20 20:00 98.8 119 19 101/62 (75) 100 09/26/20 19:30 126 19 80 09/26/20 19:00 117 20 93/55 (68) 100 09/26/20 18:30 124 30 121/70 (87) 100 09/26/20 18:00 125 24 133/70 (91) 100 09/26/20 17:30 121 22 95/62 (73) 98 09/26/20 17:15 114/62 09/26/20 17:00 119 24 102/59 (73) 100 09/26/20 16:30 82 15 105/67 (80) 100 09/26/20 16:00 Mechanical Ventilator 09/26/20 16:00 80 09/26/20 16:00 98.9 90 23 129/69 (89) 100 09/26/20 16:00 125 09/26/20 15:30 124 24 105/71 (82) 100 09/26/20 15:15 74 17 80 09/26/20 15:00 125 25 114/66 (82) 100 09/26/20 14:30 128 27 98/58 (71) 100 09/26/20 14:00 127 24 91/61 (71) 100 09/26/20 13:30 128 27 100/65 (77) 100 09/26/20 13:00 125 26 94/55 (68) 100 09/26/20 12:30 126 26 98/65 (76) 100 09/26/20 12:00 Mechanical Ventilator 09/26/20 12:00 123 09/26/20 12:00 100 09/26/20 12:00 99.4 126 23 96/63 (74) 100 09/26/20 11:30 125 23 99/63 (75) 100 09/26/20 11:15 45 19 100 09/26/20 11:00 82 14 102/59 (73) 100 Status: sedated Condition: critical HEENT: atraumatic Lungs: rhonchi Heart: HR/BP stable, edema Abdomen: soft Extremities: no C/C/E Critical Care - Subjective ROS Limited/Unobtainable: Yes Interval Events: looks comfortable Condition: critical EKG Rhythm: Sinus Rhythm FI02: 60 Vent Support Breath Rate: 16 Vent Support Mode: AC Vent Tidal Volume: 650 Sputum Amount: Small PEEP: 8.0 PIP: 52 Tube Feeding Amount: 45 I&O: Intake and Output 09/26/20 09/27/20 19:00 07:00 Intake Total 1803.125 ml 1352.2 ml Output Total 880 ml 865 ml Balance 923.125 ml 487.2 ml IV Total 1443.125 ml 1352.2 ml Other 360 ml Output Urine Total 880 ml 865 ml CXR: ET ok, no changes ET-Tube: 7.0 ET Position: 25 Labs: Laboratory Tests Test 09/27/20 05:18 White Blood Count 8.7 K/UL (4.8-10.8) Red Blood Count 2.82 M/UL (4.70-6.10) L Hemoglobin 9.0 G/DL (14.2-18.0) L Hematocrit 25.1 % (42.0-52.0) L Mean Corpuscular Volume 89 FL (80-99) Mean Corpuscular Hemoglobin 32.1 PG (27.0-31.0) H Mean Corpuscular Hemoglobin Concent 36.1 G/DL (32.0-36.0) H Red Cell Distribution Width 14.7 % (11.6-14.8) Platelet Count 41 K/UL (150-450) L Mean Platelet Volume 15.5 FL (6.5-10.1) H Neutrophils (%) (Auto) % (45.0-75.0) Lymphocytes (%) (Auto) % (20.0-45.0) Monocytes (%) (Auto) % (1.0-10.0) Eosinophils (%) (Auto) % (0.0-3.0) Basophils (%) (Auto) % (0.0-2.0) Differential Total Cells Counted 100 Neutrophils % (Manual) 76 % (45-75) H Lymphocytes % (Manual) 15 % (20-45) L Monocytes % (Manual) 4 % (1-10) Eosinophils % (Manual) 5 % (0-3) H Basophils % (Manual) 0 % (0-2) Band Neutrophils 0 % (0-8) Platelet Estimate Decreased L Platelet Morphology Normal Polychromasia 1+ Anisocytosis 1+ Sodium Level 139 MMOL/L (136-145) Potassium Level 3.7 MMOL/L (3.5-5.1) Chloride Level 110 MMOL/L (98-107) H Carbon Dioxide Level 20 MMOL/L (21-32) L Anion Gap 9 mmol/L (5-15) Blood Urea Nitrogen 56 mg/dL (7-18) H Creatinine 3.1 MG/DL (0.55-1.30) H Estimat Glomerular Filtration Rate 19.8 mL/min (>60) Glucose Level 113 MG/DL (74-106) H Calcium Level 7.0 MG/DL (8.5-10.1) L Phosphorus Level 2.8 MG/DL (2.5-4.9) Magnesium Level 1.9 MG/DL (1.8-2.4) Total Bilirubin 1.1 MG/DL (0.2-1.0) H Direct Bilirubin 0.5 MG/DL (0.0-0.3) H Aspartate Amino Transf (AST/SGOT) 58 U/L (15-37) H Alanine Aminotransferase (ALT/SGPT) 37 U/L (12-78) Alkaline Phosphatase 182 U/L (46-116) H C-Reactive Protein, Quantitative 22.7 mg/dL (0.00-0.90) H Pro-B-Type Natriuretic Peptide 70547 pg/mL (0-125) H Total Protein 5.5 G/DL (6.4-8.2) L Albumin 2.1 G/DL (3.4-5.0) L Globulin 3.4 g/dL Albumin/Globulin Ratio 0.6 (1.0-2.7) L Random Vancomycin Level 23.1 ug/mL Jaclyn Byrne MD Sep 27, 2020 10:56
--- NOTE | 2020-09-27 12:14 | NUR ---
NURSE NOTES: Dr. Crespo is assessing patient at the bedside, ordered to have midodrine started with 5mg TID for blood pressure support and to titrate Levophed. no further orders given at this time.
--- NOTE | 2020-09-27 12:30 | Surgery Progress Note ---
Surgery Progress Note Subjective Additional Comments on support plt low labs noted 60% peep 8 ill appearing no responsive Objective Last 24 Hour Vital Signs Date Time Temp Pulse Resp B/P (MAP) Pulse Ox O2 Delivery O2 Flow Rate FiO2 09/27/20 11:30 97 27 113/67 (82) 100 09/27/20 11:00 91 14 124/69 (87) 100 09/27/20 10:30 91 22 131/74 (93) 100 09/27/20 10:00 89 18 113/69 (84) 100 09/27/20 10:00 97 15 127/72 (90) 100 09/27/20 09:30 95 23 135/73 (93) 100 09/27/20 09:00 86 18 123/64 (83) 99 09/27/20 08:48 93 09/27/20 08:30 90 13 105/54 (71) 100 09/27/20 08:00 Mechanical Ventilator 09/27/20 08:00 98.9 87 21 112/52 (72) 100 09/27/20 08:00 94 09/27/20 08:00 60 09/27/20 07:30 86 28 119/66 (83) 100 09/27/20 07:01 84 31 60 09/27/20 07:00 79 27 113/63 (80) 100 09/27/20 06:45 88 25 112/58 (76) 100 09/27/20 06:30 112 50 09/27/20 06:30 93 29 109/66 (80) 100 09/27/20 06:15 87 18 125/60 (81) 100 09/27/20 06:00 85 16 109/64 (79) 100 09/27/20 05:45 85 22 114/70 (85) 100 09/27/20 05:30 88 20 116/55 (75) 100 09/27/20 05:15 88 21 130/64 (86) 100 09/27/20 05:00 88 16 120/72 (88) 100 09/27/20 04:45 85 16 110/66 (81) 100 09/27/20 04:35 90 28 108/57 (74) 100 09/27/20 04:15 89 24 104/62 (76) 99 09/27/20 04:00 85 18 118/67 (84) 100 09/27/20 04:00 Mechanical Ventilator 09/27/20 04:00 91 09/27/20 04:00 80 09/27/20 03:45 88 20 115/54 (74) 100 09/27/20 03:30 87 23 106/58 (74) 100 09/27/20 03:25 79 23 80 09/27/20 03:15 86 23 110/64 (79) 100 09/27/20 03:00 88 21 109/63 (78) 100 09/27/20 02:45 91 28 92/47 (62) 97 09/27/20 02:30 88 20 108/55 (72) 100 09/27/20 02:15 86 21 105/54 (71) 100 09/27/20 02:00 85 18 115/65 (82) 100 09/27/20 01:45 79 19 106/62 (77) 100 09/27/20 01:30 128 18 104/60 (75) 100 09/27/20 01:15 93 22 96/57 (70) 100 09/27/20 01:00 98 17 124/61 (82) 100 09/27/20 00:45 129 23 111/66 (81) 100 09/27/20 00:30 128 23 121/69 (86) 100 09/27/20 00:15 123 15 110/69 (83) 100 09/27/20 00:00 98.9 113 17 102/66 (78) 100 09/27/20 00:00 96 09/27/20 00:00 80 09/27/20 00:00 Mechanical Ventilator 09/26/20 23:56 137 09/26/20 23:45 128 14 98/51 (67) 100 09/26/20 23:30 116 12 117/67 (84) 100 09/26/20 23:15 126 16 119/65 (83) 100 09/26/20 23:00 101 16 117/55 (75) 100 09/26/20 22:45 97 18 113/68 (83) 100 09/26/20 22:41 90 18 80 09/26/20 22:30 102 17 106/59 (75) 100 09/26/20 22:15 116 22 115/56 (75) 99 09/26/20 22:00 94 19 112/61 (78) 100 12/27/20 21:45 99 20 99/68 (78) 100 09/26/20 21:30 125 17 107/63 (78) 100 09/26/20 21:15 103 21 102/68 (79) 100 09/26/20 21:00 Mechanical Ventilator 09/26/20 21:00 109 21 112/61 (78) 100 09/26/20 20:45 116 22 110/67 (81) 100 09/26/20 20:30 115 21 111/63 (79) 100 09/26/20 20:15 113 30 98/63 (75) 100 09/26/20 20:00 103 09/26/20 20:00 Mechanical Ventilator 09/26/20 20:00 80 09/26/20 20:00 98.8 119 19 101/62 (75) 100 09/26/20 19:30 126 19 80 09/26/20 19:00 117 20 93/55 (68) 100 09/26/20 18:30 124 30 121/70 (87) 100 09/26/20 18:00 125 24 133/70 (91) 100 09/26/20 17:30 121 22 95/62 (73) 98 09/26/20 17:15 114/62 09/26/20 17:00 119 24 102/59 (73) 100 09/26/20 16:30 82 15 105/67 (80) 100 09/26/20 16:00 Mechanical Ventilator 09/26/20 16:00 80 09/26/20 16:00 98.9 90 23 129/69 (89) 100 09/26/20 16:00 125 09/26/20 15:30 124 24 105/71 (82) 100 09/26/20 15:15 74 17 80 09/26/20 15:00 125 25 114/66 (82) 100 09/26/20 14:30 128 27 98/58 (71) 100 09/26/20 14:00 127 24 91/61 (71) 100 09/26/20 13:30 128 27 100/65 (77) 100 09/26/20 13:00 125 26 94/55 (68) 100 09/26/20 12:30 126 26 98/65 (76) 100 I&O Intake and Output 09/26/20 09/27/20 19:00 07:00 Intake Total 1803.125 ml 1352.2 ml Output Total 880 ml 865 ml Balance 923.125 ml 487.2 ml IV Total 1443.125 ml 1352.2 ml Other 360 ml Output Urine Total 880 ml 865 ml Dressing: saturated Cardiovascular: RSR Respiratory: decreased breath sounds Abdomen: soft, non-tender, present bowel sounds Extremities: no tenderness, no cyanosis Laboratory Tests Test 09/27/20 05:18 White Blood Count 8.7 K/UL (4.8-10.8) Red Blood Count 2.82 M/UL (4.70-6.10) L Hemoglobin 9.0 G/DL (14.2-18.0) L Hematocrit 25.1 % (42.0-52.0) L Mean Corpuscular Volume 89 FL (80-99) Mean Corpuscular Hemoglobin 32.1 PG (27.0-31.0) H Mean Corpuscular Hemoglobin Concent 36.1 G/DL (32.0-36.0) H Red Cell Distribution Width 14.7 % (11.6-14.8) Platelet Count 41 K/UL (150-450) L Mean Platelet Volume 15.5 FL (6.5-10.1) H Neutrophils (%) (Auto) % (45.0-75.0) Lymphocytes (%) (Auto) % (20.0-45.0) Monocytes (%) (Auto) % (1.0-10.0) Eosinophils (%) (Auto) % (0.0-3.0) Basophils (%) (Auto) % (0.0-2.0) Differential Total Cells Counted 100 Neutrophils % (Manual) 76 % (45-75) H Lymphocytes % (Manual) 15 % (20-45) L Monocytes % (Manual) 4 % (1-10) Eosinophils % (Manual) 5 % (0-3) H Basophils % (Manual) 0 % (0-2) Band Neutrophils 0 % (0-8) Platelet Estimate Decreased L Platelet Morphology Normal Polychromasia 1+ Anisocytosis 1+ Sodium Level 139 MMOL/L (136-145) Potassium Level 3.7 MMOL/L (3.5-5.1) Chloride Level 110 MMOL/L (98-107) H Carbon Dioxide Level 20 MMOL/L (21-32) L Anion Gap 9 mmol/L (5-15) Blood Urea Nitrogen 56 mg/dL (7-18) H Creatinine 3.1 MG/DL (0.55-1.30) H Estimat Glomerular Filtration Rate 19.8 mL/min (>60) Glucose Level 113 MG/DL (74-106) H Calcium Level 7.0 MG/DL (8.5-10.1) L Phosphorus Level 2.8 MG/DL (2.5-4.9) Magnesium Level 1.9 MG/DL (1.8-2.4) Total Bilirubin 1.1 MG/DL (0.2-1.0) H Direct Bilirubin 0.5 MG/DL (0.0-0.3) H Aspartate Amino Transf (AST/SGOT) 58 U/L (15-37) H Alanine Aminotransferase (ALT/SGPT) 37 U/L (12-78) Alkaline Phosphatase 182 U/L (46-116) H C-Reactive Protein, Quantitative 22.7 mg/dL (0.00-0.90) H Pro-B-Type Natriuretic Peptide 24596 pg/mL (0-125) H Total Protein 5.5 G/DL (6.4-8.2) L Albumin 2.1 G/DL (3.4-5.0) L Globulin 3.4 g/dL Albumin/Globulin Ratio 0.6 (1.0-2.7) L Random Vancomycin Level 23.1 ug/mL Plan Problems: (1) Septic shock Assessment & Plan: anemia lactic acidosis elevated t bili / d bili imaging reviewed ill appearing weaning pressors as tolerated local care provided will follow with recs thank you Pt presented on admission with multiple Pressure Injuries.Cat 3 Skin Tear pily L chest. Base of wound is moist ,viable with 100% flap loss.No exudate noted. Cat 2 Skin Tear ventral L forearm. 20% skin flap loss,80% flap in-situ. Cat 2 Skin tear dorsal L forearm with 10% flap loss,90% skin flap in situ. Sacral DTPI(L)12cm x (W)17.5cm. Base of Pressure injury maroon with scattered Purpuric areas within base of injury. Surrounding non-blanchable erythema withou t induration. Perianal area is erythematous. Partial Thickness Pressure injury at head of penis. Base of wound is moist and viable. Both R and L Heels are Boggy with Non-blanchable erythema. Tx.Plan: Apply Optifoam drsgs to L chest, L forearm. Change every 7 days and prn. Apply Moisture Barrier Past to sacrum. Cover with Optifoam drsg. Change every 3 days and prn. Apply Moisture Barrier Paste to penis and Perianal areas with each incontinence care. Apply Cavilon Skin Barrier to both heels. Cover each heel with Optifoam drsg. Change every 7 days and prn. Reposition at least every 2hours or as tolerated. Off-load heels with Pillow. APM/JARED Mattress. DAILY ESTIMATED NEEDS: Needs based on Critical care, wound, ARF/ 77kg abw 22-28 kcals/kg 6693-4752 total kcals 0.8-1.25 (increase w/ renal improvement) g protein/kg 61-96 g total protein 20-25 mL/kg 3729-8939 total fluid mLs NUTRITION DIAGNOSIS: Swallowing difficulty r/t respiratory failure as evidenced by orally intubated upon adm, now s/p code blue (09/22), on pressor support. CURRENT TF:npo PO DIET RECOMMENDATIONS: RUBBER TUBING SPLICER eval post extubation ENTERAL NUTRITION RECOMMENDATIONS: Glucerna 1.2 @ 60ml/hr x 24 hrs to provide 1440ml, 1728kcal, 86g prot, 1159ml free water * WITH HEMODYNAMIC STABILITY -> Initiate Glucerna 1.2 @ 20ml/hrs x 6 hrs, advance 10ml q 4-6 hrs as tolerated to goal -> Flush per MD. HOB over 30 degrees -> Monitor renal fxn and lytes, need for renal TF of Nepro Without hemodynamic stability: rec trophic feeding of Glucerna 1.2 @ 10- 15ml/hr x 24 hrs ADDITIONAL RECOMMENDATIONS: * Calibrated bedscale wt * Monitor hemodynamic stability, ability to feed * Monitor renal fxn and lytes, need for renal TF formula (creat wnl last adm -> 5.2 at this time, K wnl, phos and mag low) * NISS w/ TF * Wound healing: f/up w/ WC eval, add Omar BID w/ TF (2) Multiorgan failure (3) Rapid atrial fibrillation (4) Compression fracture of L3 vertebra (5) Social isolation (6) Impaired mobility and ADLs (7) UTI (urinary tract infection) (8) Suicidal ideations (9) HTN (hypertension) (10) Failure to thrive in adult (11) Renal failure (ARF), acute on chronic (12) ANGI (acute kidney injury) (13) BPH (benign prostatic hyperplasia) (14) Schizoaffective disorder (15) Sick sinus syndrome (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 There is retrocardiac consolidation which is increased. Left upper lung, right lung and pleural space are clear. There is a left chest bifocal pacemaker. Stable satisfactory positions of endotracheal and orogastric tubes. Impression: Increased left pleural effusion and retrocardiac consolidation. Eber Slater Sep 27, 2020 12:30
--- NOTE | 2020-09-27 12:37 | NUR ---
RESPIRATORY THERAPY NOTES: Aware of the weaning orders. Awaiting an order change from PEEP +8 to PEEP +5 before I begin to wean. Pino GREENWOOD aware.
--- NOTE | 2020-09-27 12:45 | NUR ---
NURSE NOTES: Dr. Crespo at the bedside aware patient is on Levophed at 4mcg/min, ordered to have midodrine 5mg tid po added to the patient medications. will place verbal order. Dr. Mata placed order for midodrine at 10mg TID po. order for midodrine 5mg cancelled.
[2020-09-27] MEDS: D5 1/4NS 1000ml 1,000 ML IV SCH (13:08)
[2020-09-27] MEDS: Vitamin D 1000 units Tab GT SCH (13:09)
--- NOTE | 2020-09-27 13:50 | Cardiac Electrophysiology PN ---
Assessment/Plan Assessment/Plan 1. Atrial fib with RVR and Episode of pulseless electrical activity after ventricular tachycardia. On Amio 400 po tid and Dig 0.125 po daily. Dig level is 1.0. 2. NSTEMI 3.0 could be due to renal failure as well as septic shock. 3. Septic and hypovolemic shock. On iv fluid and Abx. On Levophed. Add Midodrine 10 tid 4. Respiratory failure, on the ventilator, 60% FiO2 on a PEEP of 15 5. Severe azotemia with sodium of 170 and very high BUN and creatinine. Cr down to 3.1 The patient is on D5 and quarter-normal saline per Dr. Mata. LISA RN Subjective Subjective In ICU on the vent with 60% Fio2 and on 4 mcg of Levo . Got Dig 0.5 for atrial fib with RVR. HR 90s in atrial fib.On Amiodarone 400 po bid Objective Last 24 Hour Vital Signs Date Time Temp Pulse Resp B/P (MAP) Pulse Ox O2 Delivery O2 Flow Rate FiO2 09/27/20 12:00 85 09/27/20 12:00 60 09/27/20 11:30 97 27 113/67 (82) 100 09/27/20 11:04 89 21 40 09/27/20 11:00 91 14 124/69 (87) 100 09/27/20 10:30 91 22 131/74 (93) 100 09/27/20 10:00 89 18 113/69 (84) 100 09/27/20 10:00 97 15 127/72 (90) 100 09/27/20 09:30 95 23 135/73 (93) 100 09/27/20 09:00 86 18 123/64 (83) 99 09/27/20 08:48 93 09/27/20 08:30 90 13 105/54 (71) 100 09/27/20 08:00 Mechanical Ventilator 09/27/20 08:00 98.9 87 21 112/52 (72) 100 09/27/20 08:00 94 09/27/20 08:00 60 09/27/20 07:30 86 28 119/66 (83) 100 09/27/20 07:01 84 31 60 09/27/20 07:00 79 27 113/63 (80) 100 09/27/20 06:45 88 25 112/58 (76) 100 09/27/20 06:30 112 50 09/27/20 06:30 93 29 109/66 (80) 100 09/27/20 06:15 87 18 125/60 (81) 100 09/27/20 06:00 85 16 109/64 (79) 100 09/27/20 05:45 85 22 114/70 (85) 100 09/27/20 05:30 88 20 116/55 (75) 100 09/27/20 05:15 88 21 130/64 (86) 100 09/27/20 05:00 88 16 120/72 (88) 100 09/27/20 04:45 85 16 110/66 (81) 100 09/27/20 04:35 90 28 108/57 (74) 100 09/27/20 04:15 89 24 104/62 (76) 99 09/27/20 04:00 85 18 118/67 (84) 100 09/27/20 04:00 Mechanical Ventilator 09/27/20 04:00 91 09/27/20 04:00 80 09/27/20 03:45 88 20 115/54 (74) 100 09/27/20 03:30 87 23 106/58 (74) 100 09/27/20 03:25 79 23 80 09/27/20 03:15 86 23 110/64 (79) 100 09/27/20 03:00 88 21 109/63 (78) 100 09/27/20 02:45 91 28 92/47 (62) 97 09/27/20 02:30 88 20 108/55 (72) 100 09/27/20 02:15 86 21 105/54 (71) 100 09/27/20 02:00 85 18 115/65 (82) 100 09/27/20 01:45 79 19 106/62 (77) 100 09/27/20 01:30 128 18 104/60 (75) 100 09/27/20 01:15 93 22 96/57 (70) 100 09/27/20 01:00 98 17 124/61 (82) 100 09/27/20 00:45 129 23 111/66 (81) 100 09/27/20 00:30 128 23 121/69 (86) 100 09/27/20 00:15 123 15 110/69 (83) 100 09/27/20 00:00 98.9 113 17 102/66 (78) 100 09/27/20 00:00 96 09/27/20 00:00 80 09/27/20 00:00 Mechanical Ventilator 09/26/20 23:56 137 09/26/20 23:45 128 14 98/51 (67) 100 09/26/20 23:30 116 12 117/67 (84) 100 09/26/20 23:15 126 16 119/65 (83) 100 09/26/20 23:00 101 16 117/55 (75) 100 09/26/20 22:45 97 18 113/68 (83) 100 09/26/20 22:41 90 18 80 09/26/20 22:30 102 17 106/59 (75) 100 09/26/20 22:15 116 22 115/56 (75) 99 09/26/20 22:00 94 19 112/61 (78) 100 09/26/20 21:45 99 20 99/68 (78) 100 09/26/20 21:30 125 17 107/63 (78) 100 09/26/20 21:15 103 21 102/68 (79) 100 09/26/20 21:00 Mechanical Ventilator 09/26/20 21:00 109 21 112/61 (78) 100 09/26/20 20:45 116 22 110/67 (81) 100 09/26/20 20:30 115 21 111/63 (79) 100 09/26/20 20:15 113 30 98/63 (75) 100 09/26/20 20:00 103 09/26/20 20:00 Mechanical Ventilator 09/26/20 20:00 80 09/26/20 20:00 98.8 119 19 101/62 (75) 100 09/26/20 19:30 126 19 80 09/26/20 19:00 117 20 93/55 (68) 100 09/26/20 18:30 124 30 121/70 (87) 100 09/26/20 18:00 125 24 133/70 (91) 100 09/26/20 17:30 121 22 95/62 (73) 98 09/26/20 17:15 114/62 09/26/20 17:00 119 24 102/59 (73) 100 09/26/20 16:30 82 15 105/67 (80) 100 09/26/20 16:00 Mechanical Ventilator 09/26/20 16:00 80 09/26/20 16:00 98.9 90 23 129/69 (89) 100 09/26/20 16:00 125 09/26/20 15:30 124 24 105/71 (82) 100 09/26/20 15:15 74 17 80 09/26/20 15:00 125 25 114/66 (82) 100 09/26/20 14:30 128 27 98/58 (71) 100 09/26/20 14:00 127 24 91/61 (71) 100 Intake and Output 09/26/20 09/27/20 19:00 07:00 Intake Total 1803.125 ml 1352.2 ml Output Total 880 ml 865 ml Balance 923.125 ml 487.2 ml IV Total 1443.125 ml 1352.2 ml Other 360 ml Output Urine Total 880 ml 865 ml Laboratory Tests Test 09/27/20 05:18 White Blood Count 8.7 K/UL (4.8-10.8) Red Blood Count 2.82 M/UL (4.70-6.10) L Hemoglobin 9.0 G/DL (14.2-18.0) L Hematocrit 25.1 % (42.0-52.0) L Mean Corpuscular Volume 89 FL (80-99) Mean Corpuscular Hemoglobin 32.1 PG (27.0-31.0) H Mean Corpuscular Hemoglobin Concent 36.1 G/DL (32.0-36.0) H Red Cell Distribution Width 14.7 % (11.6-14.8) Platelet Count 41 K/UL (150-450) L Mean Platelet Volume 15.5 FL (6.5-10.1) H Neutrophils (%) (Auto) % (45.0-75.0) Lymphocytes (%) (Auto) % (20.0-45.0) Monocytes (%) (Auto) % (1.0-10.0) Eosinophils (%) (Auto) % (0.0-3.0) Basophils (%) (Auto) % (0.0-2.0) Differential Total Cells Counted 100 Neutrophils % (Manual) 76 % (45-75) H Lymphocytes % (Manual) 15 % (20-45) L Monocytes % (Manual) 4 % (1-10) Eosinophils % (Manual) 5 % (0-3) H Basophils % (Manual) 0 % (0-2) Band Neutrophils 0 % (0-8) Platelet Estimate Decreased L Platelet Morphology Normal Polychromasia 1+ Anisocytosis 1+ Sodium Level 139 MMOL/L (136-145) Potassium Level 3.7 MMOL/L (3.5-5.1) Chloride Level 110 MMOL/L (98-107) H Carbon Dioxide Level 20 MMOL/L (21-32) L Anion Gap 9 mmol/L (5-15) Blood Urea Nitrogen 56 mg/dL (7-18) H Creatinine 3.1 MG/DL (0.55-1.30) H Estimat Glomerular Filtration Rate 19.8 mL/min (>60) Glucose Level 113 MG/DL (74-106) H Calcium Level 7.0 MG/DL (8.5-10.1) L Phosphorus Level 2.8 MG/DL (2.5-4.9) Magnesium Level 1.9 MG/DL (1.8-2.4) Total Bilirubin 1.1 MG/DL (0.2-1.0) H Direct Bilirubin 0.5 MG/DL (0.0-0.3) H Aspartate Amino Transf (AST/SGOT) 58 U/L (15-37) H Alanine Aminotransferase (ALT/SGPT) 37 U/L (12-78) Alkaline Phosphatase 182 U/L (46-116) H C-Reactive Protein, Quantitative 22.7 mg/dL (0.00-0.90) H Pro-B-Type Natriuretic Peptide 89718 pg/mL (0-125) H Total Protein 5.5 G/DL (6.4-8.2) L Albumin 2.1 G/DL (3.4-5.0) L Globulin 3.4 g/dL Albumin/Globulin Ratio 0.6 (1.0-2.7) L Random Vancomycin Level 23.1 ug/mL Objective HEAD AND NECK: Orally intubated. LUNGS: Coarse rhonchi. CARDIOVASCULAR: Irregular irregular and tachycardic S1 and S2 with no gallop. ABDOMEN: Soft. EXTREMITIES: No pitting edema. Carlos Eduardo Crespo MD Sep 27, 2020 13:50
--- NOTE | 2020-09-27 15:35 | NUR ---
NURSE NOTES: Dr. Byrne ordered to have the peep changed to 5 and begin weaning the patient. no further orders given at this time.
--- NOTE | 2020-09-27 15:40 | NUR ---
CASE MANAGEMENT:REVIEW 09/27/20 SI: SEPTIC SHOCK. ACUTE RESPIRATORY FAILURE ~ INTUBATED 98.9 87 21 112/52 100^ ON VENT SUPPORT W/60% FIO2 PLT-41 BUN+56 CR+3.1 IS: LEVOPHED GTT IVF@ 100/HR IV MEROPENEM Q12 AMIODARONE NG TID MIDODRINE NG Q8HRS DIGOXIN NG QD : ICU STATUS DCP: [facility]
--- NOTE | 2020-09-27 16:05 | Internal Med Progress Note ---
Subjective Physician Name Andrés Rothman Attending Physician Andrés Rothman MD Current Medications Medications (Trade) Dose Ordered Sig/Fabrizio Route PRN Reason Start Time Stop Time Status Last Admin Dose Admin Acetaminophen (Tylenol) 650 mg Q4H PRN NG Mild Pain (Pain Scale 1-3) 09/23/20 13:30 10/23/20 13:29 09/23/20 13:42 Acetaminophen (Tylenol) 650 mg Q4H PRN NG Temp >100.5 09/23/20 13:30 10/23/20 13:29 09/26/20 08:04 Amiodarone HCl (Cordarone) 400 mg TID NG 09/26/20 14:30 12/24/20 21:14 09/27/20 13:08 Chlorhexidine Gluconate (Jennifer-Hex 2%) 1 applic DAILY@2000 TOPIC 09/22/20 20:00 12/21/20 19:59 09/26/20 20:27 Dextrose/Sodium Chloride 1,000 ml @ 100 mls/hr Q10H IV 09/22/20 11:00 10/22/20 10:59 09/27/20 13:08 Digoxin (Lanoxin) 0.125 mg DAILY ORAL 09/24/20 09:00 12/23/20 08:59 09/27/20 08:48 Haloperidol Lactate (Haldol) 5 mg Q6H PRN IM Agitation 09/21/20 23:45 11/05/20 23:44 Heparin Sodium (Porcine) (Heparin 5000 units/ml) 5,000 units EVERY 12 HOURS SUBQ 09/22/20 09:00 11/06/20 08:59 09/22/20 21:00 Lorazepam (Ativan 2mg/ml 1ml) 2 mg Q2H PRN IV For Anxiety 09/21/20 23:45 09/28/20 23:44 09/26/20 02:15 Meropenem 500 mg/ Sodium Chloride 55 ml @ 110 mls/hr Q12HR IVPB 09/22/20 10:00 09/28/20 23:59 09/27/20 08:48 Midodrine (Pro-Amatine) 10 mg Q8HR ORAL 09/26/20 14:30 12/25/20 14:29 09/27/20 13:08 Morphine Sulfate (Morphine Sulfate) 4 mg Q4H PRN IVP Severe Pain (Pain Scale 7-10) 09/21/20 23:45 09/28/20 23:44 Norepinephrine Bitartrate 250 ml @ 7.5 mls/hr Q24H PRN IV For hypotension 09/26/20 13:15 09/29/20 13:09 09/26/20 17:15 Ondansetron HCl (Zofran) 4 mg Q6H PRN IVP Nausea & Vomiting 09/21/20 23:45 10/21/20 23:44 Pantoprazole (Protonix) 40 mg Q12HR IVP 09/22/20 21:00 10/22/20 08:59 09/27/20 08:48 Polyethylene Glycol (Miralax) 17 gm DAILYPRN PRN ORAL Constipation 09/21/20 23:45 10/21/20 23:44 Vancomycin HCl ([facility] pharmacy to dose) 1 ea DAILY PRN MISC PER RX PROTOCOL 09/22/20 07:45 10/22/20 07:44 Vitamin D (Vitamin D) 20,000 unit DAILY GT 09/28/20 09:00 09/28/20 09:01 Allergies: Coded Allergies: No Known Allergies (Unverified , 07/22/20) Subjective in ICU, intubated remained on ventilation, unable to follow commands, unresponsive, CRP: 22.7, Hgb: 9.0, Resume Levophed Drip. Objective Last Vital Signs Date Time Temp Pulse Resp B/P (MAP) Pulse Ox O2 Delivery O2 Flow Rate FiO2 09/27/20 15:00 92 24 126/70 (88) 99 09/27/20 12:01 99.1 09/27/20 12:00 Mechanical Ventilator 09/27/20 12:00 60 09/22/20 08:00 15.0 Laboratory Tests Test 09/27/20 05:18 White Blood Count 8.7 K/UL (4.8-10.8) Red Blood Count 2.82 M/UL (4.70-6.10) L Hemoglobin 9.0 G/DL (14.2-18.0) L Hematocrit 25.1 % (42.0-52.0) L Mean Corpuscular Volume 89 FL (80-99) Mean Corpuscular Hemoglobin 32.1 PG (27.0-31.0) H Mean Corpuscular Hemoglobin Concent 36.1 G/DL (32.0-36.0) H Red Cell Distribution Width 14.7 % (11.6-14.8) Platelet Count 41 K/UL (150-450) L Mean Platelet Volume 15.5 FL (6.5-10.1) H Neutrophils (%) (Auto) % (45.0-75.0) Lymphocytes (%) (Auto) % (20.0-45.0) Monocytes (%) (Auto) % (1.0-10.0) Eosinophils (%) (Auto) % (0.0-3.0) Basophils (%) (Auto) % (0.0-2.0) Differential Total Cells Counted 100 Neutrophils % (Manual) 76 % (45-75) H Lymphocytes % (Manual) 15 % (20-45) L Monocytes % (Manual) 4 % (1-10) Eosinophils % (Manual) 5 % (0-3) H Basophils % (Manual) 0 % (0-2) Band Neutrophils 0 % (0-8) Platelet Estimate Decreased L Platelet Morphology Normal Polychromasia 1+ Anisocytosis 1+ Sodium Level 139 MMOL/L (136-145) Potassium Level 3.7 MMOL/L (3.5-5.1) Chloride Level 110 MMOL/L (98-107) H Carbon Dioxide Level 20 MMOL/L (21-32) L Anion Gap 9 mmol/L (5-15) Blood Urea Nitrogen 56 mg/dL (7-18) H Creatinine 3.1 MG/DL (0.55-1.30) H Estimat Glomerular Filtration Rate 19.8 mL/min (>60) Glucose Level 113 MG/DL (74-106) H Calcium Level 7.0 MG/DL (8.5-10.1) L Phosphorus Level 2.8 MG/DL (2.5-4.9) Magnesium Level 1.9 MG/DL (1.8-2.4) Total Bilirubin 1.1 MG/DL (0.2-1.0) H Direct Bilirubin 0.5 MG/DL (0.0-0.3) H Aspartate Amino Transf (AST/SGOT) 58 U/L (15-37) H Alanine Aminotransferase (ALT/SGPT) 37 U/L (12-78) Alkaline Phosphatase 182 U/L (46-116) H C-Reactive Protein, Quantitative 22.7 mg/dL (0.00-0.90) H Pro-B-Type Natriuretic Peptide 91706 pg/mL (0-125) H Total Protein 5.5 G/DL (6.4-8.2) L Albumin 2.1 G/DL (3.4-5.0) L Globulin 3.4 g/dL Albumin/Globulin Ratio 0.6 (1.0-2.7) L Random Vancomycin Level 23.1 ug/mL Intake and Output 09/26/20 09/27/20 19:00 07:00 Intake Total 1803.125 ml 1352.2 ml Output Total 880 ml 865 ml Balance 923.125 ml 487.2 ml IV Total 1443.125 ml 1352.2 ml Other 360 ml Output Urine Total 880 ml 865 ml Objective General: remain on ventilation, unresponsive, cannot follow commands. HEENT: NCAT, sclera anicteric, PERRL, ET Tube, OG Tube. Neck: Supple, no significant jugular venous distention, Lungs: mechanical breath sounds, decreased air at the bases, no wheezes. Heart: S1, S2, regular rate, tachycardia,, normal S1/S2, no murmurs, pacemaker at left side chest wall. Abdomen: soft, nontender, nondistended. Normoactive bowel sounds. : [place] catheter. Extremities: No Cyanosis , clubbing or edema. Neuro: limited secondary to patient's status, unable to follow commands. Assessment/Plan Assessment/Plan ASSESSMENT: This is a 75-year-old white male with: 1. Pneumonia. 2. Acute hypoxemic Respiratory failure. 3. Septic shock. 4. Non-ST elevated myocardial infarction. 5. Hypertension. 6. Benign prostatic hypertrophy. 7. Alzheimer's dementia. 8. Depression. 9. status post cardiopulmonary arrest / PEA arrest (09/22/2020) 10. Atrial fibrillation with rapid ventricular rate. 11. Acute renal failure on chronic renal insufficiency. 12. hypernatremia. 13. Multiorgan failure. 14. Acute E. coli UTI. 15. MRSA sepsis/bacteremia. 16. NSTEMI 17. sick sinus syndrome status post a pacemaker on 08/27/2020. 18. Ventricular tachycardia. TREATMENT: 1. Pneumonia. Abx: meropenem and vancomycin. An Infectious Disease consultation has been obtained with Dr. Aviles. Follow recommendations of Infectious Disease. A Pulmonary consultation has been obtained with Dr. Jaclyn Byrne. 2. Septic shock. The patient is currently on vasopressin. 3. Non-ST elevated myocardial infarction. A Cardiology consultation has been obtained with Dr. Carlos Eduardo Crespo. Follow recommendations of Cardiology. 4. Hypertension. The patient is currently hypotensive. Hold antihypertensive medication. 5. Benign prostatic hypertrophy. Continue Flomax as above. 6. Alzheimer's dementia. 7. History of schizophrenia/depression. 8. Pacemaker in situ. tolerated tube feeding at 45 cc/hr. on Amiodarone 400 mg 3 times a day Pressors: resume Levophed Drip CODE STATUS: DNR DVT prophylaxis: heparin subcu. Andrés Rothman MD Sep 27, 2020 16:05
--- NOTE | 2020-09-27 16:08 | NUR ---
RESPIRATORY THERAPY NOTES: Started weaning at 1555. Placed Patient on PS +8 PEEP +5, FIO2 40%. SPON RR 35, SOON VT 300mL, SATS 100%, HR 89, VE 14.7, RSBI 102. Will continue to monitor Patient. Will get ABG in 1 hour.
--- NOTE | 2020-09-27 16:30 | NUR ---
NURSE NOTES: Patient is weaning on Cpap with ps of 8, FIo2 of 40% and peep of 5, patient is saturating at 98-99% with rr of 35-38, heart rate is 90-98.
--- NOTE | 2020-09-27 17:30 | NUR ---
NURSE NOTES: Patient unable to tolerate weaning of CPAP with PS of 8, FIo2 100 % and peep of 5, weaning stopped and placed on previous Ac 16, TV: 650, FIo2 40% and peep of 5. respirations remains elevated at 29-32, HR at 82, Bp 102/65.
--- NOTE | 2020-09-27 18:05 | NUR ---
NURSE NOTES: Levophed held with BP at 114/57, hr at 83, rr of 27 and 99% saturations. large diarrhea dark brown stool cleaned, central line dressing changed after being soiled with stool at the edges.
--- NOTE | 2020-09-27 19:30 | NUR ---
NURSE NOTES: Received pt orally intubated on ac mode, was hypotensive, increased, Levophed drip up to 4 mcg/min . Suctioned tn tk yellow secretions moderate in amt. 02 sat > 92%. will continue to monitor.
[2020-09-27] MEDS: Dyna-Hex 2% Top Sol 2oz TOPIC SCH (20:00)
--- NOTE | 2020-09-27 20:01 | NUR ---
NURSE HAND-OFF REPORT: Latest Vital Signs: Temperature 99.8 , Pulse 79 , B/P 99 /44 , Respiratory Rate 18 , O2 SAT 99 , Mechanical Ventilator, O2 Flow Rate . Vital Sign Comment: EKG Rhythm: Sinus Rhythm Rhythm change?: N Notified?: Jerrod Crespo MD Response: Order Received& Read Back Latest Robertson Fall Score: 75 Fall Risk: High Risk Safety Measures: Call light Within Reach, Bed Alarm Zone 1, Side Rails Side Rails x2, Bed position Low and Locked. Fall Precautions: Yellow Socks Yellow Gown Door Sign Patient Fall Education Report given to KRYSTYNA Waters.
[2020-09-27] MEDS: Norepinephrine 4mg/NS Premix 250 ML IV PRN (20:03)
--- NOTE | 2020-09-27 22:00 | NUR ---
NURSE NOTES: Turned q 2hrs prn with good skin care done. sacral drsg was changed, on P 200 mattress.
[2020-09-28] VITALS (59 sets, daily range): BP systolic 94–143; BP diastolic 46–85
[2020-09-28] MEDS: D5 1/4NS 1000ml 1,000 ML IV SCH ×2 (03:06→18:18)
--- NOTE | 2020-09-28 04:00 | NUR ---
NURSE NOTES: COMPLETE BED BATH AND WOUND CARE DONE
--- NOTE | 2020-09-28 06:00 | NUR ---
NURSE NOTES: PT BP 127/65 ON LEVO AT 2MCG/MIN
[2020-09-28] MEDS: Midodrine 10mg tab ORAL SCH ×3 (06:06→22:10)
[2020-09-28] MEDS ORDERED: Vancomycin 1gm/D5W 275ml IVPB SCH ×6 (07:00→10:00)
--- NOTE | 2020-09-28 07:28 | NUR ---
NURSE HAND-OFF REPORT: Latest Vital Signs: Temperature 99.0 , Pulse 80 , B/P 114 /85 , Respiratory Rate 20 , O2 SAT 100 , Mechanical Ventilator, O2 Flow Rate . Vital Sign Comment: EKG Rhythm: Sinus Rhythm Rhythm change?: N Notified?: Jerrod Crespo MD Response: Order Received& Read Back Latest Robertson Fall Score: 75 Fall Risk: High Risk Safety Measures: Call light Within Reach, Bed Alarm Zone 1, Side Rails Side Rails x2, Bed position Low and Locked. Fall Precautions: Yellow Socks Yellow Gown Door Sign Patient Fall Education Report given to ROMEO GREENWOOD.
--- NOTE | 2020-09-28 08:40 | NUR ---
RESPIRATORY NOTES PT placed on SBT - CPAP 5, PS 8, 40% PT does not exhibit any signs of respiratory distress. ABG to follow in an hour. RN Pino gil. Will continue to monitor.
--- NOTE | 2020-09-28 08:48 | NUR ---
NURSE NOTES: Weaning started with Setting set at CPAP with PS of 8, FIO2 at 40% and peep of 5, Respirations are 23 with saturation at 98-100%, heart rate is 80-91 with bp of 121/51, volumes per breath noted to be approximately 500-550mls with no distress or use of accessory muscles. bilateral chest rise in notes, will continue to monitor.
[2020-09-28] MEDS ORDERED: Vitamin D 1000 units Tab GT SCH (09:00)
[2020-09-28] MEDS: Heparin 5000 units/ml inj SUBQ SCH ×2 (09:00→20:29)
--- NOTE | 2020-09-28 09:19 | Infectious Diseases Prog Note ---
Assessment/Plan 75yo M with: Septic shock MRSA bacteremia CODE BLUE 09/21, s/p ROSC Pneumonia, c/f aspiration Hypoxic resp failure s/p intubation 09/21 R/o UTI Hypotension on pressors ANGI, Cr in 5s Elevated AST to 100s Febrile Normal WBC Lymphopenia 09/21 BCx +MRSA UA+ UCx E.coli S-CTX Resp cx +MSSA COVID rapid neg, PCR NEG CT chest: 1. Almost complete opacification of the left mainstem bronchus, segmental and subsegmental bronchi with presumed debris. Tree-in-bud nodularity along with patchy airspace consolidations are identified in the bilateral lower lobes, left greater than right. Constellation of findings are suspicious for aspiration pneumonia. 2. Left lower lobe and lingular subsegmental atelectasis. 3. 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 TTE: No vegetations 09/23 BCx NTD 09/25 BCx NTD HyperNa to 170 on admission ANGI on CKD, Cr in 5s, worsening SNF resident Dementia Plan: Cont meropenem #7/7 Cont vanco IV #8 for MRSA bacteremia, duration TBD Recommend CHANDLER given presenting sepsis w/ MRSA bacteremia of unclear source (resp cx has MSSA) - per d/w RN, not candidate given DNR/DNI and considering comfort care 09/22 SP amikacin x1 09/21 SP Zosyn in ED Monitor CBC/CMP Monitor temp curve, hemodynamics Monitor resp status D/w RN Thank you for this consult. [facility] will continue to follow. Subjective Allergies: Coded Allergies: No Known Allergies (Unverified , 07/22/20) AF NAD on vent, weaning Objective Last 24 Hour Vital Signs Date Time Temp Pulse Resp B/P (MAP) Pulse Ox O2 Delivery O2 Flow Rate FiO2 09/28/20 08:00 40 09/28/20 08:00 86 09/28/20 08:00 99.1 86 13 117/65 (82) 100 09/28/20 08:00 Mechanical Ventilator 09/28/20 07:30 84 19 127/65 (85) 100 09/28/20 06:45 84 14 09/28/20 06:00 80 20 114/85 (95) 100 09/28/20 05:30 82 9 98/56 (70) 100 09/28/20 05:00 82 12 108/63 (78) 100 09/28/20 04:30 75 21 99/49 (66) 100 09/28/20 04:00 60 09/28/20 04:00 Mechanical Ventilator 09/28/20 04:00 84 09/28/20 04:00 99.0 82 16 109/46 (67) 99 09/28/20 03:25 82 21 40 09/28/20 03:15 83 16 105/50 (68) 98 09/28/20 03:00 90 17 143/68 (93) 99 09/28/20 02:45 91 22 134/72 (92) 98 09/28/20 02:30 88 21 141/57 (85) 98 09/28/20 02:15 88 19 130/61 (84) 99 09/28/20 02:00 89 22 116/56 (76) 98 09/28/20 00:45 91 18 134/63 (86) 98 09/28/20 00:30 89 21 130/58 (82) 97 09/28/20 00:15 86 25 134/64 (87) 98 09/28/20 00:00 89 21 131/66 (87) 98 09/28/20 00:00 Mechanical Ventilator 09/27/20 23:48 93 17 40 09/27/20 23:45 93 21 141/60 (87) 98 09/27/20 23:30 90 18 140/60 (86) 98 09/27/20 23:15 89 15 119/69 (86) 98 09/27/20 23:00 88 18 131/67 (88) 99 09/27/20 22:45 85 14 144/65 (91) 99 09/27/20 22:30 82 18 142/65 (90) 99 09/27/20 22:15 86 22 138/62 (87) 98 09/27/20 22:10 78 25 143/64 (90) 99 09/27/20 22:02 72 17 83/43 (56) 99 09/27/20 22:00 74 19 85/40 (55) 99 09/27/20 21:45 76 18 81/46 (58) 99 09/27/20 21:30 80 23 100/59 (73) 99 09/27/20 21:15 82 16 98/46 (63) 99 09/27/20 21:00 86 16 109/44 (65) 99 09/27/20 21:00 86 09/27/20 21:00 60 09/27/20 20:45 78 21 116/49 (71) 99 09/27/20 20:30 81 13 110/54 (72) 98 09/27/20 20:15 98.8 82 19 113/54 (73) 99 09/27/20 20:03 76 18 40 09/27/20 20:03 87/54 09/27/20 20:00 Mechanical Ventilator 09/27/20 20:00 75 12 90/44 (59) 99 09/27/20 19:54 73 16 86/46 (59) 98 09/27/20 19:45 73 22 89/42 (58) 98 09/27/20 19:30 79 21 96/45 (62) 99 09/27/20 19:15 79 17 95/43 (60) 99 09/27/20 19:00 79 18 99/44 (62) 99 09/27/20 18:30 81 31 113/69 (84) 100 09/27/20 18:00 83 27 114/57 (76) 99 09/27/20 17:30 92 29 112/63 (79) 97 09/27/20 17:00 82 32 102/65 (77) 97 09/27/20 16:10 95 36 98 Mechanical Ventilator 40 09/27/20 16:01 99.8 74 32 106/61 (76) 97 09/27/20 16:00 60 09/27/20 16:00 74 32 106/61 (76) 97 09/27/20 16:00 Mechanical Ventilator 09/27/20 16:00 86 09/27/20 15:07 95 36 40 40 09/27/20 15:00 92 24 126/70 (88) 99 09/27/20 14:30 89 28 123/70 (87) 99 09/27/20 14:00 88 24 125/62 (83) 98 09/27/20 13:30 89 27 121/62 (81) 98 09/27/20 13:00 90 27 105/59 (74) 100 09/27/20 12:30 85 32 116/67 (83) 100 09/27/20 12:01 99.1 82 30 125/62 (83) 99 09/27/20 12:00 85 09/27/20 12:00 Mechanical Ventilator 09/27/20 12:00 82 30 125/62 (83) 99 09/27/20 12:00 60 09/27/20 11:30 97 27 113/67 (82) 100 09/27/20 11:04 89 21 40 09/27/20 11:00 91 14 124/69 (87) 100 09/27/20 10:30 91 22 131/74 (93) 100 09/27/20 10:00 89 18 113/69 (84) 100 09/27/20 10:00 97 15 127/72 (90) 100 09/27/20 09:30 95 23 135/73 (93) 100 Height (Feet): 5 Height (Inches): 9.00 Weight (Pounds): 190 Gen: NAD HEENT: NCAT Pulm: BL chest rise Abd: Non-distended Ext: No c/c/e Skin: No visible rashes Neuro: Awake Microbiology Date/Time Source Procedure Growth Status 09/25/20 14:00 Blood Blood Culture - Preliminary NO GROWTH AFTER 48 HOURS Resulted Laboratory Tests Test 09/27/20 16:50 09/28/20 04:45 Arterial Blood pH 7.329 (7.350-7.450) Arterial Blood Partial Pressure CO2 34.7 mmHg (35.0-45.0) L Arterial Blood Partial Pressure O2 64.7 mmHg (75.0-100.0) L Arterial Blood HCO3 17.8 mmol/L (22.0-26.0) *L Arterial Blood Oxygen Saturation 91.7 % (95-100) L Arterial Blood Base Excess -7.3 (-2-2) L Kush Test Positive Random Vancomycin Level 17.8 ug/mL Current Medications Medications (Trade) Dose Ordered Sig/Fabrizio Route PRN Reason Start Time Stop Time Status Last Admin Dose Admin Acetaminophen (Tylenol) 650 mg Q4H PRN NG Mild Pain (Pain Scale 1-3) 09/23/20 13:30 10/23/20 13:29 09/23/20 13:42 Acetaminophen (Tylenol) 650 mg Q4H PRN NG Temp >100.5 09/23/20 13:30 10/23/20 13:29 09/26/20 08:04 Amiodarone HCl (Cordarone) 400 mg TID NG 09/26/20 14:30 12/24/20 21:14 09/27/20 17:27 Chlorhexidine Gluconate (Jennifer-Hex 2%) 1 applic DAILY@2000 TOPIC 09/22/20 20:00 12/21/20 19:59 09/27/20 20:00 Dextrose/Sodium Chloride 1,000 ml @ 100 mls/hr Q10H IV 09/22/20 11:00 10/22/20 10:59 09/28/20 03:06 Digoxin (Lanoxin) 0.125 mg DAILY ORAL 09/24/20 09:00 12/23/20 08:59 09/27/20 08:48 Haloperidol Lactate (Haldol) 5 mg Q6H PRN IM Agitation 09/21/20 23:45 11/05/20 23:44 Heparin Sodium (Porcine) (Heparin 5000 units/ml) 5,000 units EVERY 12 HOURS SUBQ 09/22/20 09:00 11/06/20 08:59 09/22/20 21:00 Lorazepam (Ativan 2mg/ml 1ml) 2 mg Q2H PRN IV For Anxiety 09/21/20 23:45 09/28/20 23:44 09/26/20 02:15 Meropenem 500 mg/ Sodium Chloride 55 ml @ 110 mls/hr Q12HR IVPB 09/22/20 10:00 09/28/20 23:59 09/27/20 20:49 Midodrine (Pro-Amatine) 10 mg Q8HR ORAL 09/26/20 14:30 12/25/20 14:29 09/28/20 06:06 Morphine Sulfate (Morphine Sulfate) 4 mg Q4H PRN IVP Severe Pain (Pain Scale 7-10) 09/21/20 23:45 09/28/20 23:44 Norepinephrine Bitartrate 250 ml @ 7.5 mls/hr Q24H PRN IV For hypotension 09/26/20 13:15 09/29/20 13:09 09/27/20 20:03 Ondansetron HCl (Zofran) 4 mg Q6H PRN IVP Nausea & Vomiting 09/21/20 23:45 10/21/20 23:44 Pantoprazole (Protonix) 40 mg Q12HR IVP 09/22/20 21:00 10/22/20 08:59 09/27/20 20:48 Polyethylene Glycol (Miralax) 17 gm DAILYPRN PRN ORAL Constipation 09/21/20 23:45 10/21/20 23:44 Vancomycin HCl (Vanco pharmacy to dose) 1 ea DAILY PRN MISC PER RX PROTOCOL 09/22/20 07:45 10/22/20 07:44 Vancomycin HCl 1 gm/Dextrose 275 ml @ 183.708 mls/hr ONCE IVPB 09/28/20 10:00 09/28/20 12:00 Rosaura Aviles M.D. Sep 28, 2020 09:19
[2020-09-28] MEDS: Pantoprazole Inj IVP SCH ×2 (09:22→20:28)
[2020-09-28] MEDS: Digoxin 0.125mg tab ORAL SCH (09:22)
[2020-09-28] MEDS: Meropenem 500mg/NS 55ml IVPB SCH ×4 (09:22→20:28)
[2020-09-28] MEDS: Amiodarone 200mg tab NG SCH ×3 (09:22→18:18)
--- NOTE | 2020-09-28 10:30 | NUR ---
NURSE NOTES: Dr. Byrne updated on patient weaning trial on cpap with ps of 8, fio2 of 40% and peep of 5. made aware patient is obtunded with no response to stimulus and hypoactive gag reflex. also made aware of the abg results taken one hour after weaning was started. placed order for CT scan.
--- NOTE | 2020-09-28 10:39 | Pulmonolgy Critical Care Note ---
Critical Care - Asmt/Plan Problems: (1) Multiorgan failure (2) Septic shock (3) Acute respiratory failure (4) Rapid atrial fibrillation (5) ARF (acute renal failure) (6) Pulseless ventricular tachycardia (7) Cardiopulmonary arrest (8) Schizoaffective disorder Respiratory: monitor respiratory rate, adjust FIO2, CXR Cardiac: continue to monitor HR/BP Renal: F/U I&O, keep IV fluid Infectious Disease: check cultures Gastrointestinal: continue feedings/current rate Endocrine: check HgA1C Hematologic: monitor H/H Neurologic: PRN Ativan Affect: PRN ativan Prophylaxis: Protonix Time Spent (Minutes): 40 Notes Reviewed: fowl blood tester, renal Discussed with: nurses, consultants, case investigatorservice center manager - Objective Last 24 Hour Vital Signs Date Time Temp Pulse Resp B/P (MAP) Pulse Ox O2 Delivery O2 Flow Rate FiO2 09/28/20 10:00 84 29 108/63 (78) 99 09/28/20 09:30 86 26 117/66 (83) 99 09/28/20 09:22 87 09/28/20 09:00 83 24 121/61 (81) 100 09/28/20 08:30 84 17 116/56 (76) 100 09/28/20 08:00 40 09/28/20 08:00 86 09/28/20 08:00 99.1 86 13 117/65 (82) 100 09/28/20 08:00 Mechanical Ventilator 09/28/20 07:30 84 19 127/65 (85) 100 09/28/20 06:45 84 14 09/28/20 06:00 80 20 114/85 (95) 100 09/28/20 05:30 82 9 98/56 (70) 100 09/28/20 05:00 82 12 108/63 (78) 100 09/28/20 04:30 75 21 99/49 (66) 100 09/28/20 04:00 60 09/28/20 04:00 Mechanical Ventilator 09/28/20 04:00 84 09/28/20 04:00 99.0 82 16 109/46 (67) 99 09/28/20 03:25 82 21 40 09/28/20 03:15 83 16 105/50 (68) 98 09/28/20 03:00 90 17 143/68 (93) 99 09/28/20 02:45 91 22 134/72 (92) 98 09/28/20 02:30 88 21 141/57 (85) 98 09/28/20 02:15 88 19 130/61 (84) 99 09/28/20 02:00 89 22 116/56 (76) 98 09/28/20 00:45 91 18 134/63 (86) 98 09/28/20 00:30 89 21 130/58 (82) 97 09/28/20 00:15 86 25 134/64 (87) 98 09/28/20 00:00 89 21 131/66 (87) 98 09/28/20 00:00 Mechanical Ventilator 09/27/20 23:48 93 17 40 09/27/20 23:45 93 21 141/60 (87) 98 09/27/20 23:30 90 18 140/60 (86) 98 09/27/20 23:15 89 15 119/69 (86) 98 09/27/20 23:00 88 18 131/67 (88) 99 09/27/20 22:45 85 14 144/65 (91) 99 09/27/20 22:30 82 18 142/65 (90) 99 09/27/20 22:15 86 22 138/62 (87) 98 09/27/20 22:10 78 25 143/64 (90) 99 09/27/20 22:02 72 17 83/43 (56) 99 09/27/20 22:00 74 19 85/40 (55) 99 09/27/20 21:45 76 18 81/46 (58) 99 09/27/20 21:30 80 23 100/59 (73) 99 09/27/20 21:15 82 16 98/46 (63) 99 09/27/20 21:00 86 16 109/44 (65) 99 09/27/20 21:00 86 09/27/20 21:00 60 09/27/20 20:45 78 21 116/49 (71) 99 09/27/20 20:30 81 13 110/54 (72) 98 09/27/20 20:15 98.8 82 19 113/54 (73) 99 09/27/20 20:03 76 18 40 09/27/20 20:03 87/54 09/27/20 20:00 Mechanical Ventilator 09/27/20 20:00 75 12 90/44 (59) 99 09/27/20 19:54 73 16 86/46 (59) 98 09/27/20 19:45 73 22 89/42 (58) 98 09/27/20 19:30 79 21 96/45 (62) 99 09/27/20 19:15 79 17 95/43 (60) 99 09/27/20 19:00 79 18 99/44 (62) 99 09/27/20 18:30 81 31 113/69 (84) 100 09/27/20 18:00 83 27 114/57 (76) 99 09/27/20 17:30 92 29 112/63 (79) 97 09/27/20 17:00 82 32 102/65 (77) 97 09/27/20 16:10 95 36 98 Mechanical Ventilator 40 09/27/20 16:01 99.8 74 32 106/61 (76) 97 09/27/20 16:00 60 09/27/20 16:00 74 32 106/61 (76) 97 09/27/20 16:00 Mechanical Ventilator 09/27/20 16:00 86 09/27/20 15:07 95 36 40 40 09/27/20 15:00 92 24 126/70 (88) 99 09/27/20 14:30 89 28 123/70 (87) 99 09/27/20 14:00 88 24 125/62 (83) 98 09/27/20 13:30 89 27 121/62 (81) 98 09/27/20 13:00 90 27 105/59 (74) 100 09/27/20 12:30 85 32 116/67 (83) 100 09/27/20 12:01 99.1 82 30 125/62 (83) 99 09/27/20 12:00 85 09/27/20 12:00 Mechanical Ventilator 09/27/20 12:00 82 30 125/62 (83) 99 09/27/20 12:00 60 09/27/20 11:30 97 27 113/67 (82) 100 09/27/20 11:04 89 21 40 09/27/20 11:00 91 14 124/69 (87) 100 Status: sedated, obtunded Condition: critical HEENT: atraumatic Lungs: rales, rhonchi Heart: HR/BP stable Abdomen: soft, feeding tube Micro: Microbiology Date/Time Source Procedure Growth Status 09/25/20 14:00 Blood Blood Culture - Preliminary NO GROWTH AFTER 48 HOURS Resulted Critical Care - Subjective ROS Limited/Unobtainable: Yes Condition: critical EKG Rhythm: Sinus Rhythm FI02: 40 Vent Support Breath Rate: 16 Vent Support Mode: AC Vent Tidal Volume: 650 Sputum Amount: Moderate PEEP: 8.0 PIP: 41 Tube Feeding Amount: 45 I&O: Intake and Output 09/27/20 09/28/20 19:00 07:00 Intake Total 1077.25 ml 1067.5 ml Output Total 1125 ml 1735 ml Balance -47.75 ml -667.5 ml IV Total 957.25 ml 1067.5 ml Other 120 ml Output Urine Total 1125 ml 1735 ml # Bowel Movements 1 CXR: 1. ET tube in appropriate position. 2. Patchy bibasilar opacities, atelectasis, versus pneumonia. ET-Tube: 7.0 ET Position: 25 Labs: Laboratory Tests Test 09/27/20 16:50 09/28/20 04:45 09/28/20 09:40 Arterial Blood pH 7.329 (7.350-7.450) 7.512 (7.350-7.450) Arterial Blood Partial Pressure CO2 34.7 mmHg (35.0-45.0) L 24.5 mmHg (35.0-45.0) *L Arterial Blood Partial Pressure O2 64.7 mmHg (75.0-100.0) L 136.2 mmHg (75.0-100.0) H Arterial Blood HCO3 17.8 mmol/L (22.0-26.0) *L 19.2 mmol/L (22.0-26.0) L Arterial Blood Oxygen Saturation 91.7 % (95-100) L 97.9 % (95-100) Arterial Blood Base Excess -7.3 (-2-2) L -3.7 (-2-2) L Kush Test Positive Positive Random Vancomycin Level 17.8 ug/mL Jaclyn Byrne MD Sep 28, 2020 10:39
--- NOTE | 2020-09-28 12:42 | Cardiac Electrophysiology PN ---
Assessment/Plan Assessment/Plan 1. Atrial fib with RVR and Episode of pulseless electrical activity after ventricular tachycardia. On Amio 400 po tid and Dig 0.125 po daily. Dig level is 1.0. 2. NSTEMI 3.0 could be due to renal failure as well as septic shock. 3. Septic and hypovolemic shock. On iv fluid and Abx. On Levophed and dd Midodrine 10 tid 4. Respiratory failure, on the ventilator, 40% FiO2 on a PEEP of 5. 5. Severe azotemia with sodium of 170 and very high BUN and creatinine. Cr down to 3.1 The patient is on D5 and quarter-normal saline per Dr. Mata. LISA RN Subjective Subjective In ICU on the vent with 40% Fio2 and 2 mcg of Levoand Midodrine 10 tid. Got Dig 0.5 for atrial fib with RVR. HR 90s in atrial fib. On Amiodarone 400 po bid Objective Last 24 Hour Vital Signs Date Time Temp Pulse Resp B/P (MAP) Pulse Ox O2 Delivery O2 Flow Rate FiO2 09/28/20 12:00 69 09/28/20 12:00 40 09/28/20 12:00 84 28 123/54 (77) 99 09/28/20 11:30 87 26 110/52 (71) 99 09/28/20 11:00 84 102/50 (67) 99 09/28/20 10:30 93 32 102/50 (67) 99 09/28/20 10:00 84 29 108/63 (78) 99 09/28/20 09:30 86 26 117/66 (83) 99 09/28/20 09:22 87 09/28/20 09:00 83 24 121/61 (81) 100 09/28/20 09:00 40 09/28/20 08:41 82 24 40 09/28/20 08:30 84 17 116/56 (76) 100 09/28/20 08:00 40 09/28/20 08:00 86 09/28/20 08:00 99.1 86 13 117/65 (82) 100 09/28/20 08:00 Mechanical Ventilator 09/28/20 07:30 84 19 127/65 (85) 100 09/28/20 07:10 80 17 40 09/28/20 06:45 84 14 09/28/20 06:00 80 20 114/85 (95) 100 09/28/20 05:30 82 9 98/56 (70) 100 09/28/20 05:00 82 12 108/63 (78) 100 09/28/20 04:30 75 21 99/49 (66) 100 09/28/20 04:00 60 09/28/20 04:00 Mechanical Ventilator 09/28/20 04:00 84 09/28/20 04:00 99.0 82 16 109/46 (67) 99 09/28/20 03:25 82 21 40 09/28/20 03:15 83 16 105/50 (68) 98 09/28/20 03:00 90 17 143/68 (93) 99 09/28/20 02:45 91 22 134/72 (92) 98 09/28/20 02:30 88 21 141/57 (85) 98 09/28/20 02:15 88 19 130/61 (84) 99 09/28/20 02:00 89 22 116/56 (76) 98 09/28/20 00:45 91 18 134/63 (86) 98 09/28/20 00:30 89 21 130/58 (82) 97 09/28/20 00:15 86 25 134/64 (87) 98 09/28/20 00:00 89 21 131/66 (87) 98 09/28/20 00:00 Mechanical Ventilator 09/27/20 23:48 93 17 40 09/27/20 23:45 93 21 141/60 (87) 98 09/27/20 23:30 90 18 140/60 (86) 98 09/27/20 23:15 89 15 119/69 (86) 98 09/27/20 23:00 88 18 131/67 (88) 99 09/27/20 22:45 85 14 144/65 (91) 99 09/27/20 22:30 82 18 142/65 (90) 99 09/27/20 22:15 86 22 138/62 (87) 98 09/27/20 22:10 78 25 143/64 (90) 99 09/27/20 22:02 72 17 83/43 (56) 99 09/27/20 22:00 74 19 85/40 (55) 99 09/27/20 21:45 76 18 81/46 (58) 99 09/27/20 21:30 80 23 100/59 (73) 99 09/27/20 21:15 82 16 98/46 (63) 99 09/27/20 21:00 86 16 109/44 (65) 99 09/27/20 21:00 86 09/27/20 21:00 60 09/27/20 20:45 78 21 116/49 (71) 99 09/27/20 20:30 81 13 110/54 (72) 98 09/27/20 20:15 98.8 82 19 113/54 (73) 99 09/27/20 20:03 76 18 40 09/27/20 20:03 87/54 09/27/20 20:00 Mechanical Ventilator 09/27/20 20:00 75 12 90/44 (59) 99 09/27/20 19:54 73 16 86/46 (59) 98 09/27/20 19:45 73 22 89/42 (58) 98 09/27/20 19:30 79 21 96/45 (62) 99 09/27/20 19:15 79 17 95/43 (60) 99 09/27/20 19:00 79 18 99/44 (62) 99 09/27/20 18:30 81 31 113/69 (84) 100 09/27/20 18:00 83 27 114/57 (76) 99 09/27/20 17:30 92 29 112/63 (79) 97 09/27/20 17:00 82 32 102/65 (77) 97 09/27/20 16:10 95 36 98 Mechanical Ventilator 40 09/27/20 16:01 99.8 74 32 106/61 (76) 97 09/27/20 16:00 60 09/27/20 16:00 74 32 106/61 (76) 97 09/27/20 16:00 Mechanical Ventilator 09/27/20 16:00 86 09/27/20 15:07 95 36 40 40 09/27/20 15:00 92 24 126/70 (88) 99 09/27/20 14:30 89 28 123/70 (87) 99 09/27/20 14:00 88 24 125/62 (83) 98 09/27/20 13:30 89 27 121/62 (81) 98 09/27/20 13:00 90 27 105/59 (74) 100 Intake and Output 12/28/20 12/29/20 19:00 07:00 Intake Total 1077.25 ml 1067.5 ml Output Total 1125 ml 1735 ml Balance -47.75 ml -667.5 ml IV Total 957.25 ml 1067.5 ml Other 120 ml Output Urine Total 1125 ml 1735 ml # Bowel Movements 1 Laboratory Tests Test 09/27/20 16:50 09/28/20 04:45 09/28/20 09:40 Arterial Blood pH 7.329 (7.350-7.450) 7.512 (7.350-7.450) Arterial Blood Partial Pressure CO2 34.7 mmHg (35.0-45.0) L 24.5 mmHg (35.0-45.0) *L Arterial Blood Partial Pressure O2 64.7 mmHg (75.0-100.0) L 136.2 mmHg (75.0-100.0) H Arterial Blood HCO3 17.8 mmol/L (22.0-26.0) *L 19.2 mmol/L (22.0-26.0) L Arterial Blood Oxygen Saturation 91.7 % (95-100) L 97.9 % (95-100) Arterial Blood Base Excess -7.3 (-2-2) L -3.7 (-2-2) L Kush Test Positive Positive Random Vancomycin Level 17.8 ug/mL Microbiology Date/Time Source Procedure Growth Status 09/25/20 14:00 Blood Blood Culture - Preliminary NO GROWTH AFTER 48 HOURS Resulted Objective HEAD AND NECK: Orally intubated. LUNGS: Coarse rhonchi. CARDIOVASCULAR: Irregular irregular and tachycardic S1 and S2 with no gallop. ABDOMEN: Soft. EXTREMITIES: No pitting edema. Carlos Eduardo Crespo MD Sep 28, 2020 12:42
--- NOTE | 2020-09-28 12:59 | Nephrology Progress Note ---
Assessment/Plan Problem List: (1) ANGI (acute kidney injury) (2) Septic shock (3) Hypernatremia (4) NSTEMI (non-ST elevated myocardial infarction) (5) Acute respiratory failure (6) Dehydration (7) Rhabdomyolysis Assessment Sepsis, shock Acute renal failure Acute respiratory failure Hypernatremia, dehydration Non-STEMI Plan September 28: No labs drawn today. Remains intubated. Continue to monitor renal parameters. Continue per consultants. September 27: Renal parameters improving. Hemodynamically stable. Continue per current treatment plan. September 26: Renal parameters improving. Midodrine added to keep the blood pressure over 95 systolic. Albumin bolus given. Waiting for vitamin D level. Continue to monitor renal parameters and electrolytes. September 25: Discussed with KRYSTYNA [place]. Off pressors. Renal parameters improving. Will cut down IV fluid and give albumin bolus. Will give high dose of vitamin D for 3 days. Will check vitamin D level. September 24: Seen in ICU. Remains intubated. Urine output improved. Serum creatinine lower. Serum CPK lower. Abnormal electrolytes addressed. Continue to monitor renal parameters. Albumin bolus given. IV rate down to 150 cc an h our. September 23: Patient intubated on ventilator. Full code. Labs reviewed. IV fluid adjusted. Abnormal electrolytes addressed. Monitor CPK for rhabdo Previously: Fluid challenge IV hydration Albumin 5% Water through NG tube Monitor renal parameters Antibiotics Urine studies Avoid nephrotoxic's Poor prognosis Patient full code Per orders Subjective ROS Limited/Unobtainable: Yes Objective Objective Last 24 Hour Vital Signs Date Time Temp Pulse Resp B/P (MAP) Pulse Ox O2 Delivery O2 Flow Rate FiO2 09/28/20 12:00 69 09/28/20 12:00 40 09/28/20 12:00 84 28 123/54 (77) 99 09/28/20 11:30 87 26 110/52 (71) 99 09/28/20 11:00 84 102/50 (67) 99 09/28/20 10:30 93 32 102/50 (67) 99 09/28/20 10:00 84 29 108/63 (78) 99 09/28/20 09:30 86 26 117/66 (83) 99 09/28/20 09:22 87 09/28/20 09:00 83 24 121/61 (81) 100 09/28/20 09:00 40 09/28/20 08:41 82 24 40 09/28/20 08:30 84 17 116/56 (76) 100 09/28/20 08:00 40 09/28/20 08:00 86 09/28/20 08:00 99.1 86 13 117/65 (82) 100 09/28/20 08:00 Mechanical Ventilator 09/28/20 07:30 84 19 127/65 (85) 100 09/28/20 07:10 80 17 40 09/28/20 06:45 84 14 09/28/20 06:00 80 20 114/85 (95) 100 09/28/20 05:30 82 9 98/56 (70) 100 09/28/20 05:00 82 12 108/63 (78) 100 09/28/20 04:30 75 21 99/49 (66) 100 09/28/20 04:00 60 09/28/20 04:00 Mechanical Ventilator 09/28/20 04:00 84 09/28/20 04:00 99.0 82 16 109/46 (67) 99 09/28/20 03:25 82 21 40 09/28/20 03:15 83 16 105/50 (68) 98 09/28/20 03:00 90 17 143/68 (93) 99 09/28/20 02:45 91 22 134/72 (92) 98 09/28/20 02:30 88 21 141/57 (85) 98 09/28/20 02:15 88 19 130/61 (84) 99 09/28/20 02:00 89 22 116/56 (76) 98 09/28/20 00:45 91 18 134/63 (86) 98 09/28/20 00:30 89 21 130/58 (82) 97 09/28/20 00:15 86 25 134/64 (87) 98 09/28/20 00:00 89 21 131/66 (87) 98 09/28/20 00:00 Mechanical Ventilator 09/27/20 23:48 93 17 40 09/27/20 23:45 93 21 141/60 (87) 98 09/27/20 23:30 90 18 140/60 (86) 98 09/27/20 23:15 89 15 119/69 (86) 98 09/27/20 23:00 88 18 131/67 (88) 99 09/27/20 22:45 85 14 144/65 (91) 99 09/27/20 22:30 82 18 142/65 (90) 99 09/27/20 22:15 86 22 138/62 (87) 98 09/27/20 22:10 78 25 143/64 (90) 99 09/27/20 22:02 72 17 83/43 (56) 99 09/27/20 22:00 74 19 85/40 (55) 99 09/27/20 21:45 76 18 81/46 (58) 99 09/27/20 21:30 80 23 100/59 (73) 99 09/27/20 21:15 82 16 98/46 (63) 99 09/27/20 21:00 86 16 109/44 (65) 99 09/27/20 21:00 86 09/27/20 21:00 60 09/27/20 20:45 78 21 116/49 (71) 99 09/27/20 20:30 81 13 110/54 (72) 98 09/27/20 20:15 98.8 82 19 113/54 (73) 99 09/27/20 20:03 76 18 40 09/27/20 20:03 87/54 09/27/20 20:00 Mechanical Ventilator 09/27/20 20:00 75 12 90/44 (59) 99 09/27/20 19:54 73 16 86/46 (59) 98 09/27/20 19:45 73 22 89/42 (58) 98 09/27/20 19:30 79 21 96/45 (62) 99 09/27/20 19:15 79 17 95/43 (60) 99 09/27/20 19:00 79 18 99/44 (62) 99 09/27/20 18:30 81 31 113/69 (84) 100 09/27/20 18:00 83 27 114/57 (76) 99 09/27/20 17:30 92 29 112/63 (79) 97 09/27/20 17:00 82 32 102/65 (77) 97 09/27/20 16:10 95 36 98 Mechanical Ventilator 40 09/27/20 16:01 99.8 74 32 106/61 (76) 97 09/27/20 16:00 60 09/27/20 16:00 74 32 106/61 (76) 97 09/27/20 16:00 Mechanical Ventilator 09/27/20 16:00 86 09/27/20 15:07 95 36 40 40 09/27/20 15:00 92 24 126/70 (88) 99 09/27/20 14:30 89 28 123/70 (87) 99 09/27/20 14:00 88 24 125/62 (83) 98 09/27/20 13:30 89 27 121/62 (81) 98 09/27/20 13:00 90 27 105/59 (74) 100 Intake and Output 09/27/20 09/28/20 18:59 06:59 Intake Total 1084.75 ml 1060.0 ml Output Total 1095 ml 1640 ml Balance -10.25 ml -580.0 ml IV Total 964.75 ml 1060.0 ml Other 120 ml Output Urine Total 1095 ml 1640 ml # Bowel Movements 1 Laboratory Tests 09/27/20 16:50: Arterial Blood pH 7.329L, Arterial Blood Partial Pressure CO2 34.7L, Arterial Blood Partial Pressure O2 64.7L, Arterial Blood HCO3 17.8*L, Arterial Blood Oxygen Saturation 91.7L, Arterial Blood Base Excess -7.3L, Kush Test Positive 09/28/20 04:45: Random Vancomycin Level 17.8 09/28/20 09:40: Arterial Blood pH 7.512H, Arterial Blood Partial Pressure CO2 24.5*L, Arterial Blood Partial Pressure O2 136.2H, Arterial Blood HCO3 19.2L, Arterial Blood Oxygen Saturation 97.9, Arterial Blood Base Excess -3.7L, Kush Test Positive Height (Feet): 5 Height (Inches): 9.00 Weight (Pounds): 190 EENT: other - Intubated on ventilator Cardiovascular: normal rate Respiratory/Chest: decreased breath sounds Abdomen: distended Objective No change Gelacio Mata MD Sep 28, 2020 12:59
--- NOTE | 2020-09-28 13:05 | NUR ---
NURSE NOTES: Levophed decreased to 1mcg/min and blood pressure decreased to 85/43. increased back to 2mcg/min and blood pressure increased to 108/68. awaiting to take for to ct scan.
--- NOTE | 2020-09-28 14:20 | Surgery Progress Note ---
Surgery Progress Note Subjective Additional Comments labs noted exam stable weaning vent no n/v Objective Last 24 Hour Vital Signs Date Time Temp Pulse Resp B/P (MAP) Pulse Ox O2 Delivery O2 Flow Rate FiO2 09/28/20 12:00 69 09/28/20 12:00 40 09/28/20 12:00 84 28 123/54 (77) 99 09/28/20 11:30 87 26 110/52 (71) 99 09/28/20 11:00 84 102/50 (67) 99 09/28/20 11:00 78 29 40 09/28/20 10:30 93 32 102/50 (67) 99 09/28/20 10:00 84 29 108/63 (78) 99 09/28/20 09:30 86 26 117/66 (83) 99 09/28/20 09:22 87 09/28/20 09:00 83 24 121/61 (81) 100 09/28/20 09:00 40 09/28/20 08:41 82 24 40 09/28/20 08:30 84 17 116/56 (76) 100 09/28/20 08:00 40 09/28/20 08:00 86 09/28/20 08:00 99.1 86 13 117/65 (82) 100 09/28/20 08:00 Mechanical Ventilator 09/28/20 07:30 84 19 127/65 (85) 100 09/28/20 07:10 80 17 40 09/28/20 06:45 84 14 09/28/20 06:00 80 20 114/85 (95) 100 09/28/20 05:30 82 9 98/56 (70) 100 09/28/20 05:00 82 12 108/63 (78) 100 09/28/20 04:30 75 21 99/49 (66) 100 09/28/20 04:00 60 09/28/20 04:00 Mechanical Ventilator 09/28/20 04:00 84 09/28/20 04:00 99.0 82 16 109/46 (67) 99 09/28/20 03:25 82 21 40 09/28/20 03:15 83 16 105/50 (68) 98 09/28/20 03:00 90 17 143/68 (93) 99 09/28/20 02:45 91 22 134/72 (92) 98 09/28/20 02:30 88 21 141/57 (85) 98 09/28/20 02:15 88 19 130/61 (84) 99 09/28/20 02:00 89 22 116/56 (76) 98 09/28/20 00:45 91 18 134/63 (86) 98 09/28/20 00:30 89 21 130/58 (82) 97 09/28/20 00:15 86 25 134/64 (87) 98 09/28/20 00:00 89 21 131/66 (87) 98 09/28/20 00:00 Mechanical Ventilator 09/27/20 23:48 93 17 40 09/27/20 23:45 93 21 141/60 (87) 98 09/27/20 23:30 90 18 140/60 (86) 98 09/27/20 23:15 89 15 119/69 (86) 98 09/27/20 23:00 88 18 131/67 (88) 99 09/27/20 22:45 85 14 144/65 (91) 99 09/27/20 22:30 82 18 142/65 (90) 99 09/27/20 22:15 86 22 138/62 (87) 98 09/27/20 22:10 78 25 143/64 (90) 99 09/27/20 22:02 72 17 83/43 (56) 99 09/27/20 22:00 74 19 85/40 (55) 99 09/27/20 21:45 76 18 81/46 (58) 99 09/27/20 21:30 80 23 100/59 (73) 99 09/27/20 21:15 82 16 98/46 (63) 99 09/27/20 21:00 86 16 109/44 (65) 99 09/27/20 21:00 86 09/27/20 21:00 60 09/27/20 20:45 78 21 116/49 (71) 99 09/27/20 20:30 81 13 110/54 (72) 98 09/27/20 20:15 98.8 82 19 113/54 (73) 99 09/27/20 20:03 76 18 40 09/27/20 20:03 87/54 09/27/20 20:00 Mechanical Ventilator 09/27/20 20:00 75 12 90/44 (59) 99 09/27/20 19:54 73 16 86/46 (59) 98 09/27/20 19:45 73 22 89/42 (58) 98 09/27/20 19:30 79 21 96/45 (62) 99 09/27/20 19:15 79 17 95/43 (60) 99 09/27/20 19:00 79 18 99/44 (62) 99 09/27/20 18:30 81 31 113/69 (84) 100 09/27/20 18:00 83 27 114/57 (76) 99 09/27/20 17:30 92 29 112/63 (79) 97 09/27/20 17:00 82 32 102/65 (77) 97 09/27/20 16:10 95 36 98 Mechanical Ventilator 40 09/27/20 16:01 99.8 74 32 106/61 (76) 97 09/27/20 16:00 60 09/27/20 16:00 74 32 106/61 (76) 97 09/27/20 16:00 Mechanical Ventilator 09/27/20 16:00 86 09/27/20 15:07 95 36 40 40 09/27/20 15:00 92 24 126/70 (88) 99 09/27/20 14:30 89 28 123/70 (87) 99 I&O Intake and Output 09/27/20 09/28/20 19:00 07:00 Intake Total 1077.25 ml 1067.5 ml Output Total 1125 ml 1735 ml Balance -47.75 ml -667.5 ml IV Total 957.25 ml 1067.5 ml Other 120 ml Output Urine Total 1125 ml 1735 ml # Bowel Movements 1 Dressing: saturated Cardiovascular: RSR Respiratory: decreased breath sounds Abdomen: soft, present bowel sounds Extremities: edema, no tenderness, no cyanosis Laboratory Tests Test 09/27/20 16:50 09/28/20 04:45 09/28/20 09:40 Arterial Blood pH 7.329 (7.350-7.450) 7.512 (7.350-7.450) Arterial Blood Partial Pressure CO2 34.7 mmHg (35.0-45.0) L 24.5 mmHg (35.0-45.0) *L Arterial Blood Partial Pressure O2 64.7 mmHg (75.0-100.0) L 136.2 mmHg (75.0-100.0) H Arterial Blood HCO3 17.8 mmol/L (22.0-26.0) *L 19.2 mmol/L (22.0-26.0) L Arterial Blood Oxygen Saturation 91.7 % (95-100) L 97.9 % (95-100) Arterial Blood Base Excess -7.3 (-2-2) L -3.7 (-2-2) L Kush Test Positive Positive Random Vancomycin Level 17.8 ug/mL Plan Problems: (1) Septic shock Assessment & Plan: anemia lactic acidosis elevated t bili / d bili imaging reviewed ill appearing weaning pressors as tolerated local care provided will follow with recs thank you Pt presented on admission with multiple Pressure Injuries.Cat 3 Skin Tear pily L chest. Base of wound is moist ,viable with 100% flap loss.No exudate noted. Cat 2 Skin Tear ventral L forearm. 20% skin flap loss,80% flap in-situ. Cat 2 Skin tear dorsal L forearm with 10% flap loss,90% skin flap in situ. Sacral DTPI(L)12cm x (W)17.5cm. Base of Pressure injury maroon with scattered Purpuric areas within base of injury. Surrounding non-blanchable erythema without induration. Perianal area is erythematous. Partial Thickness Pressure injury at head of penis. Base of wound is moist and viable. Both R and L Heels are Boggy with Non-blanchable erythema. Tx.Plan: Apply Optifoam drsgs to L chest, L forearm. Change every 7 days and prn. Apply Moisture Barrier Past to sacrum. Cover with Optifoam drsg. Change every 3 days and prn. Apply Moisture Barrier Paste to penis and Perianal areas with each incontinence care. Apply Cavilon Skin Barrier to both heels. Cover each heel with Optifoam drsg. Change every 7 days and prn. Reposition at least every 2hours or as tolerated. Off-load heels with Pillow. APM/JARED Mattress. DAILY ESTIMATED NEEDS: Needs based on Critical care, wound, ARF/ 77kg abw 22-28 kcals/kg 1338-5414 total kcals 0.8-1.25 (increase w/ renal improvement) g protein/kg 61-96 g total protein 20-25 mL/kg 3543-2240 total fluid mLs NUTRITION DIAGNOSIS: Swallowing difficulty r/t respiratory failure as evidenced by orally intubated upon adm, now s/p code blue (09/22), on pressor support. CURRENT TF:npo PO DIET RECOMMENDATIONS: ROLLER STAKER ji post extubation ENTERAL NUTRITION RECOMMENDATIONS: Glucerna 1.2 @ 60ml/hr x 24 hrs to provide 1440ml, 1728kcal, 86g prot, 1159ml free water * WITH HEMODYNAMIC STABILITY -> Initiate Glucerna 1.2 @ 20ml/hrs x 6 hrs, advance 10ml q 4-6 hrs as tolerated to goal -> Flush per MD. HOB over 30 degrees -> Monitor renal fxn and lytes, need for renal TF of Nepro Without hemodynamic stability: rec trophic feeding of Glucerna 1.2 @ 10- 15ml/hr x 24 hrs ADDITIONAL RECOMMENDATIONS: * Calibrated bedscale wt * Monitor hemodynamic stability, ability to feed * Monitor renal fxn and lytes, need for renal TF formula (creat wnl last adm -> 5.2 at this time, K wnl, phos and mag low) * NISS w/ TF * Wound healing: f/up w/ WC eval, add Omar BID w/ TF (2) Multiorgan failure (3) Rapid atrial fibrillation (4) Compression fracture of L3 vertebra (5) Social isolation (6) Impaired mobility and ADLs (7) UTI (urinary tract infection) (8) Suicidal ideations (9) HTN (hypertension) (10) Failure to thrive in adult (11) Renal failure (ARF), acute on chronic (12) ANGI (acute kidney injury) (13) BPH (benign prostatic hyperplasia) (14) Schizoaffective disorder (15) Sick sinus syndrome (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 There is retrocardiac consolidation which is increased. Left upper lung, right lung and pleural space are clear. There is a left chest bifocal pacemaker. Stable satisfactory positions of endotracheal and orogastric tubes. Impression: Increased left pleural effusion and retrocardiac consolidation. Eber Slater Sep 28, 2020 14:20
--- NOTE | 2020-09-28 14:35 | NUR ---
NURSE NOTES: weaning trial stopped when RR were noted to be at 31-35 and patient saturations were 88-90%. oncve patient was returned to AC 16, TV: 650, FIO2 40% peep of 5, patient saturations increased to 95-96% and respirations decreased to 23-26. tube feeding bottle Glucerna 1.2 hung and started at 15ml/hr. patient remains obtunded and difficult to awake, he has a hypo active gag reflex, remains on Levophed at 2mcg/min.
--- NOTE | 2020-09-28 16:15 | NUR ---
NURSE NOTES: CT scan is down at this time, unable to take patient for ct of head scan. RT notified that the patient will not be taken to CT. patient remains on Levophed at 2mcg/min/
--- NOTE | 2020-09-28 16:34 | NUR ---
RESPIRATORY NOTES PT placed back onto previous vent settings. PT lasted nearly 6 hours on CPAP. PT tolerated weaning well. KRYSTYNA Pringle aware. Will continue to monitor.
--- NOTE | 2020-09-28 16:47 | NUR ---
NURSE NOTES:WOUND CARE FOLLOW-UP NOTES:Pt presented with generalized edemae. Skin tears R and L upper extremities weeping serous exudate. Sacral DTPI has evolved into Full Thickness Pressure Injury.(L)10cm x (W)1.5cm x (D)0.2cm. base of wound is beefy red, and moist. Edges are macerated. Periwound is maroon without induration. Scrotum is grossly edematous. Bilat lower extremities are edematous. Both heels are firm and easily blanchable. Tx orders continued as ordered. Al wound prevention protocols continued as care-planned.
--- NOTE | 2020-09-28 17:39 | Internal Med Progress Note ---
Subjective Date of Service: Sep 28, 2020 Physician Name MeshaShai Attending Physician Andrés Rothman MD Current Medications Medications (Trade) Dose Ordered Sig/Fabrizio Route PRN Reason Start Time Stop Time Status Last Admin Dose Admin Acetaminophen (Tylenol) 650 mg Q4H PRN NG Mild Pain (Pain Scale 1-3) 09/23/20 13:30 10/23/20 13:29 09/23/20 13:42 Acetaminophen (Tylenol) 650 mg Q4H PRN NG Temp >100.5 09/23/20 13:30 10/23/20 13:29 09/26/20 08:04 Amiodarone HCl (Cordarone) 400 mg TID NG 09/26/20 14:30 12/24/20 21:14 09/28/20 14:18 Chlorhexidine Gluconate (Jennifer-Hex 2%) 1 applic DAILY@1999 TOPIC 09/22/20 20:00 12/21/20 19:59 09/27/20 20:00 Dextrose/Sodium Chloride 1,000 ml @ 100 mls/hr Q10H IV 09/22/20 11:00 10/22/20 10:59 09/28/20 03:06 Digoxin (Lanoxin) 0.125 mg DAILY ORAL 09/24/20 09:00 12/23/20 08:59 09/28/20 09:22 Haloperidol Lactate (Haldol) 5 mg Q6H PRN IM Agitation 09/21/20 23:45 11/05/20 23:44 Heparin Sodium (Porcine) (Heparin 5000 units/ml) 5,000 units EVERY 12 HOURS SUBQ 09/22/20 09:00 11/06/20 08:59 09/22/20 21:00 Lorazepam (Ativan 2mg/ml 1ml) 2 mg Q2H PRN IV For Anxiety 09/21/20 23:45 09/28/20 23:44 09/26/20 02:15 Meropenem 500 mg/ Sodium Chloride 55 ml @ 110 mls/hr Q12HR IVPB 09/22/20 10:00 09/28/20 23:59 09/28/20 09:22 Midodrine (Pro-Amatine) 10 mg Q8HR ORAL 09/26/20 14:30 12/25/20 14:29 09/28/20 14:19 Morphine Sulfate (Morphine Sulfate) 4 mg Q4H PRN IVP Severe Pain (Pain Scale 7-10) 09/21/20 23:45 09/28/20 23:44 Norepinephrine Bitartrate 250 ml @ 7.5 mls/hr Q24H PRN IV For hypotension 09/26/20 13:15 09/29/20 13:09 09/27/20 20:03 Ondansetron HCl (Zofran) 4 mg Q6H PRN IVP Nausea & Vomiting 09/21/20 23:45 10/21/20 23:44 Pantoprazole (Protonix) 40 mg Q12HR IVP 09/22/20 21:00 10/22/20 08:59 09/28/20 09:22 Polyethylene Glycol (Miralax) 17 gm DAILYPRN PRN ORAL Constipation 09/21/20 23:45 10/21/20 23:44 Vancomycin HCl (Vanco pharmacy to dose) 1 ea DAILY PRN MISC PER RX PROTOCOL 09/22/20 07:45 10/22/20 07:44 Allergies: Coded Allergies: No Known Allergies (Unverified , 07/22/20) ROS Limited/Unobtainable: No Constitutional: Reports: no symptoms HEENT: Reports: no symptoms Cardiovascular: Reports: no symptoms Respiratory: Reports: no symptoms Gastrointestinal/Abdominal: Reports: no symptoms Genitourinary: Reports: no symptoms Neurologic/Psychiatric: Reports: no symptoms Subjective 75 YO M admitted with shortness of breath. Now respiratory failure. Intubated and sedated. ICU. Cover for Int Jesús-Dr Rothman Objective Last Vital Signs Date Time Temp Pulse Resp B/P (MAP) Pulse Ox O2 Delivery O2 Flow Rate FiO2 09/28/20 17:00 85 21 126/70 (88) 98 09/28/20 16:01 99.8 09/28/20 16:00 40 09/28/20 16:00 Mechanical Ventilator 09/22/20 08:00 15.0 Laboratory Tests Test 09/28/20 04:45 09/28/20 09:40 Random Vancomycin Level 17.8 ug/mL Arterial Blood pH 7.512 (7.350-7.450) Arterial Blood Partial Pressure CO2 24.5 mmHg (35.0-45.0) *L Arterial Blood Partial Pressure O2 136.2 mmHg (75.0-100.0) H Arterial Blood HCO3 19.2 mmol/L (22.0-26.0) L Arterial Blood Oxygen Saturation 97.9 % (95-100) Arterial Blood Base Excess -3.7 (-2-2) L Kush Test Positive Intake and Output 09/27/20 09/28/20 19:00 07:00 Intake Total 1077.25 ml 1067.5 ml Output Total 1125 ml 1735 ml Balance -47.75 ml -667.5 ml IV Total 957.25 ml 1067.5 ml Other 120 ml Output Urine Total 1125 ml 1735 ml # Bowel Movements 1 Objective Objective General: remain on ventilation, unresponsive, cannot follow commands. HEENT: NCAT, sclera anicteric, PERRL, ET Tube, OG Tube. Neck: Supple, no significant jugular venous distention, Lungs: mechanical breath sounds, decreased air at the bases, no wheezes. Heart: S1, S2, regular rate, tachycardia,, normal S1/S2, no murmurs, pacemaker at left side chest wall. Abdomen: soft, nontender, nondistended. Normoactive bowel sounds. : Whiting catheter. Extremities: No Cyanosis , clubbing or edema. Neuro: limited secondary to patient's status, unable to follow commands. Assessment/Plan Assessment/Plan Assessment/Plan Assessment/Plan ASSESSMENT: This is a 75-year-old white male with: 1. Pneumonia. 2. Acute hypoxemic Respiratory failure. 3. Septic shock. 4. Non-ST elevated myocardial infarction. 5. Hypertension. 6. Benign prostatic hypertrophy. 7. Alzheimer's dementia. 8. Depression. 9. status post cardiopulmonary arrest / PEA arrest (09/22/2020) 10. Atrial fibrillation with rapid ventricular rate. 11. Acute renal failure on chronic renal insufficiency. 12. hypernatremia. 13. Multiorgan failure. 14. Acute E. coli UTI. 15. MRSA sepsis/bacteremia. 16. NSTEMI 17. sick sinus syndrome status post a pacemaker on 08/27/2020. 18. Ventricular tachycardia. TREATMENT: 1. Pneumonia. Abx: meropenem and vancomycin. An Infectious Disease consultation has been obtained with Dr. Aviles. Follow recommendations of Infectious Disease. A Pulmonary consultation has been obtained with Dr. Jaclyn Byrne. 2. Septic shock. The patient is currently on vasopressin. 3. Non-ST elevated myocardial infarction. A Cardiology consultation has been obtained with Dr. Carlos Eduardo Crespo. Follow recommendations of Cardiology. 4. Hypertension. The patient is currently hypotensive. Hold antihypertensive medication. 5. Benign prostatic hypertrophy. Continue Flomax as above. 6. Alzheimer's dementia. 7. History of schizophrenia/depression. 8. Pacemaker in situ. tolerated tube feeding at 45 cc/hr. on Amiodarone 400 mg 3 times a day Pressors: resume Levophed Drip CODE STATUS: DNR DVT prophylaxis: heparin subcu. Shai Zimmer MD Sep 28, 2020 17:39
--- NOTE | 2020-09-28 19:15 | NUR ---
NURSE NOTES: received report from renato sapp pt dnr and dni obtunded orally intubated -vent o2 sat 100% ON LEVO DRIP AT 2MCG/MIN UN FRANDY TO < LEVO DRIP TOLERATING TUBE FEEDING NO RESIDUAL REPOSITION AND SUCTION IV INFUSING WILL SITE GOOD DRESSING DRY AND INTACT
[2020-09-28] MEDS: Dyna-Hex 2% Top Sol 2oz TOPIC SCH (20:28)
--- NOTE | 2020-09-28 22:00 | NUR ---
NURSE NOTES: condition un change
[2020-09-29] VITALS (63 sets, daily range): BP systolic 86–124; BP diastolic 39–108
--- NOTE | 2020-09-29 | NUR ---
NURSE NOTES: tolerating tube feeding no residual
[2020-09-29] MEDS: D5 1/4NS 1000ml 1,000 ML IV SCH ×3 (01:00→22:05)
--- NOTE | 2020-09-29 04:00 | NUR ---
NURSE NOTES: complete bed bath oral care and back care and wound care done
[2020-09-29] MEDS: Norepinephrine 4mg/NS Premix 250 ML IV PRN (04:32)
[2020-09-29] MEDS: Midodrine 10mg tab ORAL SCH ×4 (05:49→22:07)
--- NOTE | 2020-09-29 06:00 | NUR ---
NURSE NOTES: Patient turned and repositioned at this time. Oral care done. no signs of distress noted at this time.
[2020-09-29 06:13] LABS: BASOPHILS % (AUTO) 0.5 % (0.0-2.0); EOSINOPHILS % (AUTO) 6.7 % (0.0-3.0); HEMATOCRIT 25.3 % (42.0-52.0); HEMOGLOBIN 8.7 G/DL (14.2-18.0); LYMPHOCYTES % (AUTO) 10.8 % (20.0-45.0); MEAN CORPUSCULAR VOLUME 92 FL (80-99); MONOCYTES % (AUTO) 5.1 % (1.0-10.0); NEUTROPHILS % (AUTO) 76.9 % (45.0-75.0); PLATELET COUNT 122 K/UL (150-450); RED BLOOD COUNT 2.75 M/UL (4.70-6.10); RED CELL DISTRIBUTION WIDTH 13.9 % (11.6-14.8); WHITE BLOOD COUNT 6.2 K/UL (4.8-10.8)
[2020-09-29 06:40] LABS: ALBUMIN 1.6 G/DL (3.4-5.0); ALBUMIN/GLOBULIN RATIO 0.4 (1.0-2.7); BILIRUBIN,TOTAL 0.8 MG/DL (0.2-1.0); CALCIUM 7.3 MG/DL (8.5-10.1); CREATININE 2.1 MG/DL (0.55-1.30); POTASSIUM 3.4 MMOL/L (3.5-5.1)
--- NOTE | 2020-09-29 07:44 | NUR ---
NURSE HAND-OFF REPORT: Latest Vital Signs: Temperature 98.6 , Pulse 72 , B/P 118 /63 , Respiratory Rate 16 , O2 SAT 100 , Mechanical Ventilator, O2 Flow Rate . Vital Sign Comment: EKG Rhythm: AV-Paced Rhythm change?: N Notified?: Jerrod Crespo MD Response: Order Received& Read Back Latest Robertson Fall Score: 75 Fall Risk: High Risk Safety Measures: Call light Within Reach, Bed Alarm Zone 1, Side Rails Side Rails x2, Bed position Low and Locked. Fall Precautions: Yellow Socks Yellow Gown Door Sign Patient Fall Education Report given gasper sapp using sbar.
--- NOTE | 2020-09-29 07:45 | NUR ---
NURSE NOTES: Pt received from KRYSTYNA Fuentes. Pt is comatose; does not follow simple commands; however, pt observed grimacing with light pain stimuli - gag reflex remains intact. bilat pupils are qual and round 3mm with sluggish rxn to light. Pt is orally intubated with a 7.5 ETT noted 23 cm at the lip with the following settings: AC 16 TV 650 FiO2 40 % Peep 5. Lung sounds noted diminished upon auscultation. Pt is in AFIB to patient monitor. Radial and dorsalis pedis pulses 1+. cap refill is less than 3 sec. Afebrile. Right hand nonted with 2+ pitting edema. PGT noted running Glucerna 1.2 at 30 cc/hr (will titrate up as tolerated). Abdomen is round and soft w/ active bowel sounds to all quadrants. rectal tube noted draining liquid-like stool. F/C noted draining yellow, clear urine. Skin alterations noted. Pt has a R Fem TLC with dry and intact dressing running levophed at 1 mcg/min and D5 1/4 NS at 100 cc/hr. Bed in lowest position, alarm on, side rails up x 3, call light within reach. Will continue to monitor.
[2020-09-29] MEDS: Digoxin 0.125mg tab ORAL SCH (08:14)
[2020-09-29] MEDS: Amiodarone 200mg tab NG SCH ×3 (08:15→17:01)
[2020-09-29] MEDS: Heparin 5000 units/ml inj SUBQ SCH ×2 (08:15→20:47)
[2020-09-29] MEDS: Pantoprazole Inj IVP SCH ×2 (08:15→20:46)
--- NOTE | 2020-09-29 08:43 | Pulmonolgy Critical Care Note ---
Critical Care - Asmt/Plan Problems: (1) Multiorgan failure (2) Septic shock (3) Acute respiratory failure (4) Rapid atrial fibrillation (5) ARF (acute renal failure) (6) Pulseless ventricular tachycardia (7) Cardiopulmonary arrest (8) Schizoaffective disorder Respiratory: adjust tidal volume, monitor respiratory rate, adjust FIO2, CXR Cardiac: continue to monitor HR/BP Renal: F/U I&O, keep IV fluid Infectious Disease: check cultures, continue antibiotics Gastrointestinal: continue feedings/current rate Endocrine: continue sliding scale insulin Hematologic: transfuse if hgb<8.5 Neurologic: PRN Ativan, PRN Morphine, keep patient comfortable Prophylaxis: Protonix, Heparin Time Spent (Minutes): 40 Notes Reviewed: operational test mechanic, cardio, renal Discussed with: nurses, consultants, telephonic nurse case managernursing agency manager - Objective Last 24 Hour Vital Signs Date Time Temp Pulse Resp B/P (MAP) Pulse Ox O2 Delivery O2 Flow Rate FiO2 09/29/20 08:14 73 09/29/20 07:30 72 16 118/63 (81) 100 09/29/20 07:15 71 0 124/53 (76) 100 09/29/20 07:00 73 7 119/63 (81) 100 09/29/20 06:45 70 18 112/55 (74) 100 09/29/20 06:40 84 14 09/29/20 06:30 72 7 119/60 (79) 100 09/29/20 06:30 77 20 40 09/29/20 06:15 71 12 111/62 (78) 100 09/29/20 06:00 73 23 103/64 (77) 100 09/29/20 05:45 74 24 98/60 (73) 100 09/29/20 05:30 74 23 111/57 (75) 100 09/29/20 05:15 76 28 101/58 (72) 100 09/29/20 05:02 76 28 103/54 (70) 100 09/29/20 05:00 98.6 74 25 104/56 (72) 100 09/29/20 04:45 74 29 09/29/20 04:35 78 26 104/52 (69) 100 09/29/20 04:32 106/30 09/29/20 04:30 79 33 86/59 (68) 100 12/30/20 04:15 78 24 101/52 (68) 100 09/29/20 04:00 40 09/29/20 04:00 Mechanical Ventilator 09/29/20 04:00 75 22 95/50 (65) 98 09/29/20 03:45 79 25 107/65 (79) 99 09/29/20 03:30 82 32 99/61 (74) 99 09/29/20 03:15 83 28 106/60 (75) 98 09/29/20 03:10 89 23 40 09/29/20 03:00 82 26 116/66 (83) 94 09/29/20 02:45 72 24 124/108 (113) 84 09/29/20 02:30 72 23 115/56 (75) 100 09/29/20 02:15 68 19 111/51 (71) 100 09/29/20 02:00 72 16 99/52 (68) 100 09/29/20 01:45 69 19 111/50 (70) 100 09/29/20 01:30 71 22 109/51 (70) 100 09/29/20 01:15 70 20 101/59 (73) 100 09/29/20 01:00 71 20 109/47 (67) 99 09/29/20 00:45 73 18 106/58 (74) 99 09/29/20 00:40 84 09/29/20 00:30 72 15 107/51 (69) 99 09/29/20 00:15 72 15 101/48 (65) 99 09/29/20 00:00 Mechanical Ventilator 09/29/20 00:00 98.5 70 16 103/50 (67) 99 09/29/20 00:00 40 09/29/20 00:00 81 09/28/20 23:45 73 16 110/53 (72) 99 09/28/20 23:30 73 16 120/51 (74) 99 09/28/20 23:15 72 17 99 09/28/20 23:00 74 16 118/52 (74) 99 09/28/20 22:45 76 15 120/53 (75) 99 09/28/20 22:37 77 21 40 09/28/20 22:30 74 16 102/56 (71) 99 09/28/20 22:15 78 12 117/58 (77) 99 09/28/20 22:00 73 16 126/56 (79) 99 09/28/20 21:45 76 17 108/62 (77) 98 09/28/20 21:30 75 18 116/63 (80) 98 09/28/20 21:15 77 16 104/47 (66) 99 09/28/20 21:00 77 16 107/57 (74) 99 09/28/20 20:45 79 15 131/56 (81) 98 09/28/20 20:30 81 16 132/73 (92) 98 09/28/20 20:15 78 18 122/64 (83) 98 09/28/20 20:00 98.6 82 16 120/52 (74) 98 09/28/20 20:00 Mechanical Ventilator 09/28/20 20:00 40 09/28/20 20:00 84 09/28/20 19:45 85 19 124/53 (76) 98 09/28/20 19:30 79 16 130/60 (83) 99 09/28/20 19:15 83 10 132/59 (83) 98 09/28/20 19:08 83 18 40 09/28/20 19:00 85 16 116/60 (78) 99 09/28/20 18:30 79 14 134/58 (83) 98 09/28/20 18:00 85 21 126/70 (88) 98 09/28/20 17:30 66 16 130/69 (89) 98 09/28/20 17:00 85 21 126/70 (88) 98 09/28/20 16:30 92 21 134/62 (86) 98 09/28/20 16:01 99.8 88 19 138/58 (84) 98 09/28/20 16:00 40 09/28/20 16:00 88 19 138/58 (84) 98 09/28/20 16:00 85 09/28/20 16:00 Mechanical Ventilator 09/28/20 15:30 86 14 135/59 (84) 98 09/28/20 15:00 91 25 127/67 (87) 98 09/28/20 14:34 99 09/28/20 14:34 89 26 40 09/28/20 14:30 89 33 118/57 (77) 94 09/28/20 14:00 83 29 94/50 (65) 92 09/28/20 13:30 81 25 108/68 (81) 96 09/28/20 13:00 83 27 104/67 (79) 100 09/28/20 12:30 84 30 121/46 (71) 99 09/28/20 12:01 99.3 84 28 123/54 (77) 99 09/28/20 12:00 69 09/28/20 12:00 Mechanical Ventilator 09/28/20 12:00 40 09/28/20 12:00 84 28 123/54 (77) 99 09/28/20 11:30 87 26 110/52 (71) 99 09/28/20 11:00 84 102/50 (67) 99 09/28/20 11:00 78 29 40 09/28/20 10:30 93 32 102/50 (67) 99 09/28/20 10:00 84 29 108/63 (78) 99 09/28/20 09:30 86 26 117/66 (83) 99 09/28/20 09:22 87 09/28/20 09:00 83 24 121/61 (81) 100 09/28/20 09:00 40 09/28/20 08:41 82 24 40 Status: obtunded Condition: critical HEENT: atraumatic Neck: full ROM Lungs: chest wall tender Heart: HR/BP stable, regular Abdomen: non-tender, feeding tube Extremities: edema Critical Care - Subjective ROS Limited/Unobtainable: Yes Condition: critical EKG Rhythm: Sinus Rhythm FI02: 40 Vent Support Breath Rate: 16 Vent Support Mode: AC Vent Tidal Volume: 650 Sputum Amount: Small PEEP: 5.0 PIP: 26 Tube Feeding Amount: 30 I&O: Intake and Output 09/28/20 09/29/20 19:00 07:00 Intake Total 1164.125 ml 1843.375 ml Output Total 1525 ml 2135 ml Balance -360.875 ml -291.625 ml Intake Free Water 260 ml 180 ml IV Total 814.125 ml 1303.375 ml Tube Feeding 60 ml 360 ml Other 30 ml Output Urine Total 1525 ml 1935 ml Stool Total 200 ml CXR: Patchy bibasilar opacities, atelectasis, versus pneumonia. ET-Tube: 7.0 ET Position: 25 Labs: Laboratory Tests Test 09/28/20 09:40 09/29/20 04:52 Arterial Blood pH 7.512 (7.350-7.450) Arterial Blood Partial Pressure CO2 24.5 mmHg (35.0-45.0) *L Arterial Blood Partial Pressure O2 136.2 mmHg (75.0-100.0) H Arterial Blood HCO3 19.2 mmol/L (22.0-26.0) L Arterial Blood Oxygen Saturation 97.9 % (95-100) Arterial Blood Base Excess -3.7 (-2-2) L Kush Test Positive White Blood Count 6.2 K/UL (4.8-10.8) Red Blood Count 2.75 M/UL (4.70-6.10) L Hemoglobin 8.7 G/DL (14.2-18.0) L Hematocrit 25.3 % (42.0-52.0) L Mean Corpuscular Volume 92 FL (80-99) Mean Corpuscular Hemoglobin 31.5 PG (27.0-31.0) H Mean Corpuscular Hemoglobin Concent 34.2 G/DL (32.0-36.0) Red Cell Distribution Width 13.9 % (11.6-14.8) Platelet Count 122 K/UL (150-450) L Mean Platelet Volume 9.3 FL (6.5-10.1) Neutrophils (%) (Auto) 76.9 % (45.0-75.0) H Lymphocytes (%) (Auto) 10.8 % (20.0-45.0) L Monocytes (%) (Auto) 5.1 % (1.0-10.0) Eosinophils (%) (Auto) 6.7 % (0.0-3.0) H Basophils (%) (Auto) 0.5 % (0.0-2.0) Erythrocyte Sedimentation Rate 113 MM/HR (0-20) H Sodium Level 139 MMOL/L (136-145) Potassium Level 3.4 MMOL/L (3.5-5.1) L Chloride Level 111 MMOL/L (98-107) H Carbon Dioxide Level 20 MMOL/L (21-32) L Anion Gap 8 mmol/L (5-15) Blood Urea Nitrogen 36 mg/dL (7-18) H Creatinine 2.1 MG/DL (0.55-1.30) H Estimat Glomerular Filtration Rate 31.0 mL/min (>60) Glucose Level 123 MG/DL (74-106) H Calcium Level 7.3 MG/DL (8.5-10.1) L Phosphorus Level 3.0 MG/DL (2.5-4.9) Magnesium Level 1.5 MG/DL (1.8-2.4) L Total Bilirubin 0.8 MG/DL (0.2-1.0) Aspartate Amino Transf (AST/SGOT) 74 U/L (15-37) H Alanine Aminotransferase (ALT/SGPT) 37 U/L (12-78) Alkaline Phosphatase 144 U/L (46-116) H C-Reactive Protein, Quantitative 13.2 mg/dL (0.00-0.90) H Total Protein 5.5 G/DL (6.4-8.2) L Albumin 1.6 G/DL (3.4-5.0) L Globulin 3.9 g/dL Albumin/Globulin Ratio 0.4 (1.0-2.7) L Random Vancomycin Level 19.0 ug/mL Jaclyn Byrne MD Sep 29, 2020 08:43
--- NOTE | 2020-09-29 08:46 | NUR ---
NURSE NOTES: Dr Byrne assessing pt at bedside. Lab results reviewed. potassium replaced. Made aware pt has diarrhea - rectal tube ordered.
--- NOTE | 2020-09-29 08:56 | NUR ---
RESPIRATORY NOTE: pt placed on SBT - CPAP 5 PS 8. No signs of respiratory distress noted at this time. KRYSTYNA gil.
--- NOTE | 2020-09-29 08:59 | NUR ---
RADIOLOGY DEPT., CHEST X-RAY DONE.-P.DYE
--- NOTE | 2020-09-29 09:01 | Diagnostic Imaging Report ---
Indication: Dyspnea Technique: One view of the chest Comparison: 09/26/2020 Findings: 7 satisfactory position of endotracheal tube. Less optimal inspiration currently. There is suggestion of increasing infiltrate in the left midlung and left lung base. Left hemidiaphragm is now obscured. Infiltrate at the right lung base is probably stable. Impression: Worsening infiltrate on the left. Unchanged infiltrate on the right, since prior exam
--- NOTE | 2020-09-29 09:09 | Infectious Diseases Prog Note ---
Assessment/Plan 75yo M with: Septic shock MRSA bacteremia CODE BLUE 09/21, s/p ROSC Pneumonia, c/f aspiration Hypoxic resp failure s/p intubation 09/21 R/o UTI Hypotension on pressors ANGI, Cr in 5s Elevated AST to 100s Febrile Normal WBC Lymphopenia 09/21 BCx +MRSA UA+ UCx E.coli S-CTX Resp cx +MSSA COVID rapid neg, PCR NEG CT chest: 1. Almost complete opacification of the left mainstem bronchus, segmental and subsegmental bronchi with presumed debris. Tree-in-bud nodularity along with patchy airspace consolidations are identified in the bilateral lower lobes, left greater than right. Constellation of findings are suspicious for aspiration pneumonia. 2. Left lower lobe and lingular subsegmental atelectasis. 3. 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 TTE: No vegetations 09/23 BCx NTD 09/25 BCx NTD 09/29 CXR: Worsening infiltrate on the left. Unchanged infiltrate on the right, since prior exam HyperNa to 170 on admission ANGI on CKD, Cr in 5s, worsening SNF resident Dementia Plan: Stop meropenem #7/7 Cont vanco IV #9 for MRSA bacteremia, duration TBD Recommend CHANDLER given presenting sepsis w/ MRSA bacteremia of unclear source (resp cx has MSSA) - per d/w RN, not candidate given DNR/DNI and considering comfort care If pt transitions to comfort care, we will s/o then 09/29 SP mis #7 empiric given arrest 09/22 SP amikacin x1 09/21 SP Zosyn in ED Monitor CBC/CMP Monitor temp curve, hemodynamics Monitor resp status D/w RN Thank you for this consult. [facility] will continue to follow. Subjective Allergies: Coded Allergies: No Known Allergies (Unverified , 07/22/20) AF NAD on vent, weaning WBC 6.2 Planning for terminal extubation today Objective Last 24 Hour Vital Signs Date Time Temp Pulse Resp B/P (MAP) Pulse Ox O2 Delivery O2 Flow Rate FiO2 09/29/20 08:58 63 25 40 09/29/20 08:14 73 09/29/20 07:30 72 16 118/63 (81) 100 09/29/20 07:15 71 0 124/53 (76) 100 09/29/20 07:00 73 7 119/63 (81) 100 09/29/20 06:45 70 18 112/55 (74) 100 09/29/20 06:40 84 14 09/29/20 06:30 72 7 119/60 (79) 100 09/29/20 06:30 77 20 40 09/29/20 06:15 71 12 111/62 (78) 100 09/29/20 06:00 73 23 103/64 (77) 100 09/29/20 05:45 74 24 98/60 (73) 100 09/29/20 05:30 74 23 111/57 (75) 100 09/29/20 05:15 76 28 101/58 (72) 100 09/29/20 05:02 76 28 103/54 (70) 100 09/29/20 05:00 98.6 74 25 104/56 (72) 100 09/29/20 04:45 74 29 09/29/20 04:35 78 26 104/52 (69) 100 09/29/20 04:32 106/30 09/29/20 04:30 79 33 86/59 (68) 100 09/29/20 04:15 78 24 101/52 (68) 100 09/29/20 04:00 40 09/29/20 04:00 Mechanical Ventilator 09/29/20 04:00 75 22 95/50 (65) 98 09/29/20 03:45 79 25 107/65 (79) 99 09/29/20 03:30 82 32 99/61 (74) 99 09/29/20 03:15 83 28 106/60 (75) 98 09/29/20 03:10 89 23 40 09/29/20 03:00 82 26 116/66 (83) 94 09/29/20 02:45 72 24 124/108 (113) 84 09/29/20 02:30 72 23 115/56 (75) 100 09/29/20 02:15 68 19 111/51 (71) 100 09/29/20 02:00 72 16 99/52 (68) 100 09/29/20 01:45 69 19 111/50 (70) 100 09/29/20 01:30 71 22 109/51 (70) 100 09/29/20 01:15 70 20 101/59 (73) 100 09/29/20 01:00 71 20 109/47 (67) 99 09/29/20 00:45 73 18 106/58 (74) 99 09/29/20 00:40 84 09/29/20 00:30 72 15 107/51 (69) 99 09/29/20 00:15 72 15 101/48 (65) 99 09/29/20 00:00 Mechanical Ventilator 09/29/20 00:00 98.5 70 16 103/50 (67) 99 09/29/20 00:00 40 09/29/20 00:00 81 09/28/20 23:45 73 16 110/53 (72) 99 09/28/20 23:30 73 16 120/51 (74) 99 09/28/20 23:15 72 17 99 09/28/20 23:00 74 16 118/52 (74) 99 09/28/20 22:45 76 15 120/53 (75) 99 09/28/20 22:37 77 21 40 09/28/20 22:30 74 16 102/56 (71) 99 09/28/20 22:15 78 12 117/58 (77) 99 09/28/20 22:00 73 16 126/56 (79) 99 09/28/20 21:45 76 17 108/62 (77) 98 09/28/20 21:30 75 18 116/63 (80) 98 09/28/20 21:15 77 16 104/47 (66) 99 09/28/20 21:00 77 16 107/57 (74) 99 09/28/20 20:45 79 15 131/56 (81) 98 09/28/20 20:30 81 16 132/73 (92) 98 09/28/20 20:15 78 18 122/64 (83) 98 09/28/20 20:00 98.6 82 16 120/52 (74) 98 09/28/20 20:00 Mechanical Ventilator 09/28/20 20:00 40 09/28/20 20:00 84 09/28/20 19:45 85 19 124/53 (76) 98 09/28/20 19:30 79 16 130/60 (83) 99 09/28/20 19:15 83 10 132/59 (83) 98 09/28/20 19:08 83 18 40 09/28/20 19:00 85 16 116/60 (78) 99 09/28/20 18:30 79 14 134/58 (83) 98 09/28/20 18:00 85 21 126/70 (88) 98 09/28/20 17:30 66 16 130/69 (89) 98 09/28/20 17:00 85 21 126/70 (88) 98 09/28/20 16:30 92 21 134/62 (86) 98 09/28/20 16:01 99.8 88 19 138/58 (84) 98 09/28/20 16:00 40 09/28/20 16:00 88 19 138/58 (84) 98 09/28/20 16:00 85 09/28/20 16:00 Mechanical Ventilator 09/28/20 15:30 86 14 135/59 (84) 98 09/28/20 15:00 91 25 127/67 (87) 98 09/28/20 14:34 99 09/28/20 14:34 89 26 40 09/28/20 14:30 89 33 118/57 (77) 94 09/28/20 14:00 83 29 94/50 (65) 92 09/28/20 13:30 81 25 108/68 (81) 96 09/28/20 13:00 83 27 104/67 (79) 100 09/28/20 12:30 84 30 121/46 (71) 99 09/28/20 12:01 99.3 84 28 123/54 (77) 99 09/28/20 12:00 69 09/28/20 12:00 Mechanical Ventilator 09/28/20 12:00 40 09/28/20 12:00 84 28 123/54 (77) 99 09/28/20 11:30 87 26 110/52 (71) 99 09/28/20 11:00 84 102/50 (67) 99 09/28/20 11:00 78 29 40 09/28/20 10:30 93 32 102/50 (67) 99 09/28/20 10:00 84 29 108/63 (78) 99 09/28/20 09:30 86 26 117/66 (83) 99 09/28/20 09:22 87 Height (Feet): 5 Height (Inches): 9.00 Weight (Pounds): 190 Gen: NAD HEENT: NCAT Pulm: BL chest rise Abd: Non-distended Ext: No c/c/e Skin: No visible rashes Neuro: Awake Laboratory Tests Test 09/28/20 09:40 09/29/20 04:52 Arterial Blood pH 7.512 (7.350-7.450) Arterial Blood Partial Pressure CO2 24.5 mmHg (35.0-45.0) *L Arterial Blood Partial Pressure O2 136.2 mmHg (75.0-100.0) H Arterial Blood HCO3 19.2 mmol/L (22.0-26.0) L Arterial Blood Oxygen Saturation 97.9 % (95-100) Arterial Blood Base Excess -3.7 (-2-2) L Kush Test Positive White Blood Count 6.2 K/UL (4.8-10.8) Red Blood Count 2.75 M/UL (4.70-6.10) L Hemoglobin 8.7 G/DL (14.2-18.0) L Hematocrit 25.3 % (42.0-52.0) L Mean Corpuscular Volume 92 FL (80-99) Mean Corpuscular Hemoglobin 31.5 PG (27.0-31.0) H Mean Corpuscular Hemoglobin Concent 34.2 G/DL (32.0-36.0) Red Cell Distribution Width 13.9 % (11.6-14.8) Platelet Count 122 K/UL (150-450) L Mean Platelet Volume 9.3 FL (6.5-10.1) Neutrophils (%) (Auto) 76.9 % (45.0-75.0) H Lymphocytes (%) (Auto) 10.8 % (20.0-45.0) L Monocytes (%) (Auto) 5.1 % (1.0-10.0) Eosinophils (%) (Auto) 6.7 % (0.0-3.0) H Basophils (%) (Auto) 0.5 % (0.0-2.0) Erythrocyte Sedimentation Rate 113 MM/HR (0-20) H Sodium Level 139 MMOL/L (136-145) Potassium Level 3.4 MMOL/L (3.5-5.1) L Chloride Level 111 MMOL/L (98-107) H Carbon Dioxide Level 20 MMOL/L (21-32) L Anion Gap 8 mmol/L (5-15) Blood Urea Nitrogen 36 mg/dL (7-18) H Creatinine 2.1 MG/DL (0.55-1.30) H Estimat Glomerular Filtration Rate 31.0 mL/min (>60) Glucose Level 123 MG/DL (74-106) H Calcium Level 7.3 MG/DL (8.5-10.1) L Phosphorus Level 3.0 MG/DL (2.5-4.9) Magnesium Level 1.5 MG/DL (1.8-2.4) L Total Bilirubin 0.8 MG/DL (0.2-1.0) Aspartate Amino Transf (AST/SGOT) 74 U/L (15-37) H Alanine Aminotransferase (ALT/SGPT) 37 U/L (12-78) Alkaline Phosphatase 144 U/L (46-116) H C-Reactive Protein, Quantitative 13.2 mg/dL (0.00-0.90) H Total Protein 5.5 G/DL (6.4-8.2) L Albumin 1.6 G/DL (3.4-5.0) L Globulin 3.9 g/dL Albumin/Globulin Ratio 0.4 (1.0-2.7) L Random Vancomycin Level 19.0 ug/mL Current Medications Medications (Trade) Dose Ordered Sig/Fabrizio Route PRN Reason Start Time Stop Time Status Last Admin Dose Admin Acetaminophen (Tylenol) 650 mg Q4H PRN NG Mild Pain (Pain Scale 1-3) 09/23/20 13:30 10/23/20 13:29 09/23/20 13:42 Acetaminophen (Tylenol) 650 mg Q4H PRN NG Temp >100.5 09/23/20 13:30 10/23/20 13:29 09/26/20 08:04 Amiodarone HCl (Cordarone) 400 mg TID NG 09/26/20 14:30 12/24/20 21:14 09/29/20 08:15 Chlorhexidine Gluconate (Jennifer-Hex 2%) 1 applic DAILY@2000 TOPIC 09/22/20 20:00 12/21/20 19:59 09/28/20 20:28 Dextrose/Sodium Chloride 1,000 ml @ 100 mls/hr Q10H IV 09/22/20 11:00 10/22/20 10:59 09/29/20 01:00 Digoxin (Lanoxin) 0.125 mg DAILY ORAL 09/24/20 09:00 12/23/20 08:59 09/29/20 08:14 Haloperidol Lactate (Haldol) 5 mg Q6H PRN IM Agitation 09/21/20 23:45 11/05/20 23:44 Heparin Sodium (Porcine) (Heparin 5000 units/ml) 5,000 units EVERY 12 HOURS SUBQ 09/22/20 09:00 11/06/20 08:59 09/29/20 08:15 Midodrine (Pro-Amatine) 10 mg Q8HR ORAL 09/26/20 14:30 12/25/20 14:29 09/29/20 05:49 Norepinephrine Bitartrate 250 ml @ 7.5 mls/hr Q24H PRN IV For hypotension 09/26/20 13:15 09/29/20 13:09 09/29/20 04:32 Ondansetron HCl (Zofran) 4 mg Q6H PRN IVP Nausea & Vomiting 09/21/20 23:45 10/21/20 23:44 Pantoprazole (Protonix) 40 mg Q12HR IVP 09/22/20 21:00 10/22/20 08:59 09/29/20 08:15 Polyethylene Glycol (Miralax) 17 gm DAILYPRN PRN ORAL Constipation 09/21/20 23:45 10/21/20 23:44 Potassium Chloride (K-Dur) 40 meq ONCE ORAL 09/29/20 09:00 09/29/20 10:30 09/29/20 08:58 Vancomycin HCl (Vanco pharmacy to dose) 1 ea DAILY PRN MISC PER RX PROTOCOL 09/22/20 07:45 10/22/20 07:44 Rosaura Aviles M.D. Sep 29, 2020 09:09
--- NOTE | 2020-09-29 10:00 | NUR ---
NURSE NOTES: Pt repositioned. Seen by Dr Mata. Electrolytes replaced.
--- NOTE | 2020-09-29 10:58 | NUR ---
NURSE NOTES: Pt seen by Dr Aviles.
--- NOTE | 2020-09-29 11:43 | NUR ---
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 98.4 HR 70 RR 18 B/P 108/49 CPAP 8 FIO2 40% PEEP 5 ESR 113 BUN 36 CR. 2.1 CXR=Worsening infiltrate on the left. Unchanged infiltrate on the right,since prior exam. IS: IVF D5NS@ 100ML/HR LEVOPHED GTT VANCO IV MAGNESIUM IV PROTONIX IV ICU STATUS
--- NOTE | 2020-09-29 12:00 | NUR ---
NURSE NOTES: Pt repositioned. PO care provided. Afebrile. Will continue to monitor.
--- NOTE | 2020-09-29 14:17 | NUR ---
NURSE NOTES: Pt repositioned. Seen by Dr Crespo.
[2020-09-29] MEDS: Norepinephrine 4mg/NS Premix 250 ML IV SCH (14:21)
--- NOTE | 2020-09-29 15:09 | Nephrology Progress Note ---
Assessment/Plan Problem List: (1) ANGI (acute kidney injury) (2) Septic shock (3) Hypernatremia (4) NSTEMI (non-ST elevated myocardial infarction) (5) Acute respiratory failure (6) Dehydration (7) Rhabdomyolysis Assessment Sepsis, shock Acute renal failure Acute respiratory failure Hypernatremia, dehydration Non-STEMI Plan September 29 labs reviewed. Renal parameters improving. Abnormal electrolytes addressed. Continue per consultants. Remains intubated. September 28: No labs drawn today. Remains intubated. Continue to monitor renal parameters. Continue per consultants. September 27: Renal parameters improving. Hemodynamically stable. Continue per current treatment plan. September 26: Renal parameters improving. Midodrine added to keep the blood pressure over 95 systolic. Albumin bolus given. Waiting for vitamin D level. Continue to monitor renal parameters and electrolytes. September 25: Discussed with KRYSTYNA [place]. Off pressors. Renal parameters improving. Will cut down IV fluid and give albumin bolus. Will give high dose of vitamin D for 3 days. Will check vitamin D level. September 24: Seen in ICU. Remains intubated. Urine output improved. Serum creatinine lower. Serum CPK lower. Abnormal electrolytes addressed. Continue to monitor renal parameters. Albumin bolus given. IV rate down to 150 cc an hour. September 23: Patient intubated on ventilator. Full code. Labs reviewed. IV fluid adjusted. Abnormal electrolytes addressed. Monitor CPK for rhabdo Previously: Fluid challenge IV hydration Albumin 5% Water through NG tube Monitor renal parameters Antibiotics Urine studies Avoid nephrotoxic's Poor prognosis Patient full code Per orders Subjective ROS Limited/Unobtainable: Yes Objective Objective Last 24 Hour Vital Signs Date Time Temp Pulse Resp B/P (MAP) Pulse Ox O2 Delivery O2 Flow Rate FiO2 09/29/20 14:21 114/65 09/29/20 14:00 69 29 95/52 (66) 99 09/29/20 13:30 72 27 100/46 (64) 98 09/29/20 13:00 66 28 102/51 (68) 99 09/29/20 12:30 73 25 105/51 (69) 99 09/29/20 12:00 Mechanical Ventilator 09/29/20 12:00 99.0 71 26 96/57 (70) 99 09/29/20 12:00 77 09/29/20 11:30 71 25 103/53 (70) 99 09/29/20 11:00 70 25 98/51 (67) 99 09/29/20 10:30 79 26 40 09/29/20 10:30 71 26 98/49 (65) 99 09/29/20 10:00 72 24 112/54 (73) 99 09/29/20 09:30 76 24 105/49 (67) 99 09/29/20 09:00 40 09/29/20 09:00 70 27 110/55 (73) 100 09/29/20 08:58 63 25 40 09/29/20 08:30 68 21 119/48 (71) 100 09/29/20 08:14 73 09/29/20 08:00 70 09/29/20 08:00 98.4 71 18 108/49 (68) 100 09/29/20 08:00 40 09/29/20 08:00 Mechanical Ventilator 09/29/20 07:30 72 16 118/63 (81) 100 09/29/20 07:15 71 0 124/53 (76) 100 09/29/20 07:00 73 7 119/63 (81) 100 09/29/20 06:45 70 18 112/55 (74) 100 09/29/20 06:40 84 14 09/29/20 06:30 72 7 119/60 (79) 100 09/29/20 06:30 77 20 40 09/29/20 06:15 71 12 111/62 (78) 100 09/29/20 06:00 73 23 103/64 (77) 100 09/29/20 05:45 74 24 98/60 (73) 100 09/29/20 05:30 74 23 111/57 (75) 100 09/29/20 05:15 76 28 101/58 (72) 100 09/29/20 05:02 76 28 103/54 (70) 100 09/29/20 05:00 98.6 74 25 104/56 (72) 100 09/29/20 04:45 74 29 09/29/20 04:35 78 26 104/52 (69) 100 09/29/20 04:32 106/30 09/29/20 04:30 79 33 86/59 (68) 100 09/29/20 04:15 78 24 101/52 (68) 100 09/29/20 04:00 40 09/29/20 04:00 Mechanical Ventilator 09/29/20 04:00 75 22 95/50 (65) 98 09/29/20 03:45 79 25 107/65 (79) 99 09/29/20 03:30 82 32 99/61 (74) 99 09/29/20 03:15 83 28 106/60 (75) 98 09/29/20 03:10 89 23 40 09/29/20 03:00 82 26 116/66 (83) 94 09/29/20 02:45 72 24 124/108 (113) 84 09/29/20 02:30 72 23 115/56 (75) 100 09/29/20 02:15 68 19 111/51 (71) 100 09/29/20 02:00 72 16 99/52 (68) 100 09/29/20 01:45 69 19 111/50 (70) 100 09/29/20 01:30 71 22 109/51 (70) 100 09/29/20 01:15 70 20 101/59 (73) 100 09/29/20 01:00 71 20 109/47 (67) 99 09/29/20 00:45 73 18 106/58 (74) 99 09/29/20 00:40 84 09/29/20 00:30 72 15 107/51 (69) 99 09/29/20 00:15 72 15 101/48 (65) 99 09/29/20 00:00 Mechanical Ventilator 09/29/20 00:00 98.5 70 16 103/50 (67) 99 09/29/20 00:00 40 09/29/20 00:00 81 09/28/20 23:45 73 16 110/53 (72) 99 09/28/20 23:30 73 16 120/51 (74) 99 09/28/20 23:15 72 17 99 09/28/20 23:00 74 16 118/52 (74) 99 09/28/20 22:45 76 15 120/53 (75) 99 09/28/20 22:37 77 21 40 09/28/20 22:30 74 16 102/56 (71) 99 09/28/20 22:15 78 12 117/58 (77) 99 09/28/20 22:00 73 16 126/56 (79) 99 09/28/20 21:45 76 17 108/62 (77) 98 09/28/20 21:30 75 18 116/63 (80) 98 09/28/20 21:15 77 16 104/47 (66) 99 09/28/20 21:00 77 16 107/57 (74) 99 09/28/20 20:45 79 15 131/56 (81) 98 09/28/20 20:30 81 16 132/73 (92) 98 09/28/20 20:15 78 18 122/64 (83) 98 09/28/20 20:00 98.6 82 16 120/52 (74) 98 09/28/20 20:00 Mechanical Ventilator 09/28/20 20:00 40 09/28/20 20:00 84 09/28/20 19:45 85 19 124/53 (76) 98 09/28/20 19:30 79 16 130/60 (83) 99 09/28/20 19:15 83 10 132/59 (83) 98 09/28/20 19:08 83 18 40 09/28/20 19:00 85 16 116/60 (78) 99 09/28/20 18:30 79 14 134/58 (83) 98 09/28/20 18:00 85 21 126/70 (88) 98 09/28/20 17:30 66 16 130/69 (89) 98 09/28/20 17:00 85 21 126/70 (88) 98 09/28/20 16:30 92 21 134/62 (86) 98 09/28/20 16:01 99.8 88 19 138/58 (84) 98 09/28/20 16:00 40 09/28/20 16:00 88 19 138/58 (84) 98 09/28/20 16:00 85 09/28/20 16:00 Mechanical Ventilator 09/28/20 15:30 86 14 135/59 (84) 98 Intake and Output 09/28/20 09/29/20 18:59 06:59 Intake Total 1118.125 ml 1863.125 ml Output Total 1575 ml 2200 ml Balance -456.875 ml -336.875 ml Intake Free Water 200 ml 240 ml IV Total 843.125 ml 1278.125 ml Tube Feeding 45 ml 345 ml Other 30 ml Output Urine Total 1575 ml 2000 ml Stool Total 200 ml Current Medications Medications (Trade) Dose Ordered Sig/Fabrizio Route PRN Reason Start Time Stop Time Status Last Admin Dose Admin Acetaminophen (Tylenol) 650 mg Q4H PRN NG Mild Pain (Pain Scale 1-3) 09/23/20 13:30 10/23/20 13:29 09/23/20 13:42 Acetaminophen (Tylenol) 650 mg Q4H PRN NG Temp >100.5 09/23/20 13:30 10/23/20 13:29 09/26/20 08:04 Amiodarone HCl (Cordarone) 400 mg TID NG 09/26/20 14:30 12/24/20 21:14 09/29/20 13:05 Chlorhexidine Gluconate (Jennifer-Hex 2%) 1 applic DAILY@2000 TOPIC 09/22/20 20:00 12/21/20 19:59 09/28/20 20:28 Dextrose/Sodium Chloride 1,000 ml @ 100 mls/hr Q10H IV 09/22/20 11:00 10/22/20 10:59 09/29/20 11:44 Digoxin (Lanoxin) 0.125 mg DAILY ORAL 09/24/20 09:00 12/23/20 08:59 09/29/20 08:14 Haloperidol Lactate (Haldol) 5 mg Q6H PRN IM Agitation 09/21/20 23:45 11/05/20 23:44 Heparin Sodium (Porcine) (Heparin 5000 units/ml) 5,000 units EVERY 12 HOURS SUBQ 09/22/20 09:00 11/06/20 08:59 09/29/20 08:15 Midodrine (Pro-Amatine) 10 mg Q8HR ORAL 09/26/20 14:30 12/25/20 14:29 09/29/20 13:04 Norepinephrine Bitartrate 250 ml @ 0 mls/hr Q24H IV 09/29/20 14:17 10/02/20 14:16 09/29/20 14:21 Ondansetron HCl (Zofran) 4 mg Q6H PRN IVP Nausea & Vomiting 09/21/20 23:45 10/21/20 23:44 Pantoprazole (Protonix) 40 mg Q12HR IVP 09/22/20 21:00 10/22/20 08:59 09/29/20 08:15 Polyethylene Glycol (Miralax) 17 gm DAILYPRN PRN ORAL Constipation 09/21/20 23:45 10/21/20 23:44 Vancomycin HCl 300 ml @ 150 mls/hr ONCE IVPB 09/29/20 18:00 09/29/20 20:00 Vancomycin HCl (Vanco pharmacy to dose) 1 ea DAILY PRN MISC PER RX PROTOCOL 09/22/20 07:45 10/22/20 07:44 Laboratory Tests 09/29/20 04:52: White Blood Count 6.2, Red Blood Count 2.75L, Hemoglobin 8.7L, Hematocrit 25.3L, Mean Corpuscular Volume 92, Mean Corpuscular Hemoglobin 31.5H, Mean Corpuscular Hemoglobin Concent 34.2, Red Cell Distribution Width 13.9, Platelet Count 122L, Mean Platelet Volume 9.3, Neutrophils (%) (Auto) 76.9H, Lymphocytes (%) (Auto) 10.8L, Monocytes (%) (Auto) 5.1, Eosinophils (%) (Auto) 6.7H, Basophils (%) (Auto) 0.5, Erythrocyte Sedimentation Rate 113H, Sodium Level 139, Potassium Level 3.4L, Chloride Level 111H, Carbon Dioxide Level 20L, Anion Gap 8, Blood Urea Nitrogen 36H, Creatinine 2.1H, Estimat Glomerular Filtration Rate 31.0, Glucose Level 123H, Calcium Level 7.3L, Phosphorus Level 3.0, Magnesium Level 1.5L, Total Bilirubin 0.8, Aspartate Amino Transf (AST/SGOT) 74H, Alanine Aminotransferase (ALT/SGPT) 37, Alkaline Phosphatase 144H, C-Reactive Protein, Quantitative 13.2H, Total Protein 5.5L, Albumin 1.6L, Globulin 3.9, Albumin/Globulin Ratio 0.4L, Random Vancomycin Level 19.0 Height (Feet): 5 Height (Inches): 9.00 Weight (Pounds): 190 General Appearance: no apparent distress EENT: other - Intubated on ventilator Cardiovascular: normal rate Respiratory/Chest: decreased breath sounds Abdomen: distended Objective No change Gelacio Mata MD Sep 29, 2020 15:09
--- NOTE | 2020-09-29 15:52 | Cardiac Electrophysiology PN ---
Assessment/Plan Assessment/Plan 1. Atrial fib with RVR and Episode of pulseless electrical activity after ventricular tachycardia. On Amio 400 po tid, Dig 0.125 po daily. Dig level is 1.0. 2. NSTEMI could be due to renal failure as well as septic shock. 3. Septic and hypovolemic shock. On iv fluid and Abx. On Levophed and Midodrine 10 tid 4. Respiratory failure, on the ventilator, 40% FiO2 on a PEEP of 5. 5. Severe azotemia with sodium of 170 and very high BUN and creatinine. Cr down to 3.1 The patient is on D5 and quarter-normal saline per Dr. Mata. DW RN Subjective Subjective In ICU on the vent with 40% Fio2 and 1 mcg of Levo and Midodrine 10 tid. HR 90s in atrial fib. On Amiodarone 400 po bid Extubation pending Objective Last 24 Hour Vital Signs Date Time Temp Pulse Resp B/P (MAP) Pulse Ox O2 Delivery O2 Flow Rate FiO2 09/29/20 15:00 69 31 110/56 (74) 98 09/29/20 14:30 70 29 101/51 (68) 98 09/29/20 14:21 114/65 09/29/20 14:00 69 29 95/52 (66) 99 09/29/20 13:30 72 27 100/46 (64) 98 09/29/20 13:00 66 28 102/51 (68) 99 09/29/20 12:30 73 25 105/51 (69) 99 09/29/20 12:00 Mechanical Ventilator 09/29/20 12:00 99.0 71 26 96/57 (70) 99 09/29/20 12:00 77 09/29/20 11:30 71 25 103/53 (70) 99 09/29/20 11:00 70 25 98/51 (67) 99 09/29/20 10:30 79 26 40 09/29/20 10:30 71 26 98/49 (65) 99 09/29/20 10:00 72 24 112/54 (73) 99 09/29/20 09:30 76 24 105/49 (67) 99 09/29/20 09:00 40 09/29/20 09:00 70 27 110/55 (73) 100 09/29/20 08:58 63 25 40 09/29/20 08:30 68 21 119/48 (71) 100 09/29/20 08:14 73 09/29/20 08:00 70 09/29/20 08:00 98.4 71 18 108/49 (68) 100 09/29/20 08:00 40 09/29/20 08:00 Mechanical Ventilator 09/29/20 07:30 72 16 118/63 (81) 100 09/29/20 07:15 71 0 124/53 (76) 100 09/29/20 07:00 73 7 119/63 (81) 100 09/29/20 06:45 70 18 112/55 (74) 100 09/29/20 06:40 84 14 09/29/20 06:30 72 7 119/60 (79) 100 09/29/20 06:30 77 20 40 09/29/20 06:15 71 12 111/62 (78) 100 09/29/20 06:00 73 23 103/64 (77) 100 09/29/20 05:45 74 24 98/60 (73) 100 09/29/20 05:30 74 23 111/57 (75) 100 09/29/20 05:15 76 28 101/58 (72) 100 09/29/20 05:02 76 28 103/54 (70) 100 09/29/20 05:00 98.6 74 25 104/56 (72) 100 09/29/20 04:45 74 29 09/29/20 04:35 78 26 104/52 (69) 100 09/29/20 04:32 106/30 09/29/20 04:30 79 33 86/59 (68) 100 09/29/20 04:15 78 24 101/52 (68) 100 09/29/20 04:00 40 09/29/20 04:00 Mechanical Ventilator 09/29/20 04:00 75 22 95/50 (65) 98 09/29/20 03:45 79 25 107/65 (79) 99 09/29/20 03:30 82 32 99/61 (74) 99 09/29/20 03:15 83 28 106/60 (75) 98 09/29/20 03:10 89 23 40 09/29/20 03:00 82 26 116/66 (83) 94 09/29/20 02:45 72 24 124/108 (113) 84 09/29/20 02:30 72 23 115/56 (75) 100 09/29/20 02:15 68 19 111/51 (71) 100 09/29/20 02:00 72 16 99/52 (68) 100 09/29/20 01:45 69 19 111/50 (70) 100 09/29/20 01:30 71 22 109/51 (70) 100 09/29/20 01:15 70 20 101/59 (73) 100 09/29/20 01:00 71 20 109/47 (67) 99 09/29/20 00:45 73 18 106/58 (74) 99 09/29/20 00:40 84 09/29/20 00:30 72 15 107/51 (69) 99 09/29/20 00:15 72 15 101/48 (65) 99 09/29/20 00:00 Mechanical Ventilator 09/29/20 00:00 98.5 70 16 103/50 (67) 99 09/29/20 00:00 40 09/29/20 00:00 81 09/28/20 23:45 73 16 110/53 (72) 99 09/28/20 23:30 73 16 120/51 (74) 99 09/28/20 23:15 72 17 99 09/28/20 23:00 74 16 118/52 (74) 99 09/28/20 22:45 76 15 120/53 (75) 99 09/28/20 22:37 77 21 40 09/28/20 22:30 74 16 102/56 (71) 99 09/28/20 22:15 78 12 117/58 (77) 99 09/28/20 22:00 73 16 126/56 (79) 99 09/28/20 21:45 76 17 108/62 (77) 98 09/28/20 21:30 75 18 116/63 (80) 98 09/28/20 21:15 77 16 104/47 (66) 99 09/28/20 21:00 77 16 107/57 (74) 99 09/28/20 20:45 79 15 131/56 (81) 98 09/28/20 20:30 81 16 132/73 (92) 98 09/28/20 20:15 78 18 122/64 (83) 98 09/28/20 20:00 98.6 82 16 120/52 (74) 98 09/28/20 20:00 Mechanical Ventilator 09/28/20 20:00 40 09/28/20 20:00 84 09/28/20 19:45 85 19 124/53 (76) 98 09/28/20 19:30 79 16 130/60 (83) 99 09/28/20 19:15 83 10 132/59 (83) 98 09/28/20 19:08 83 18 40 09/28/20 19:00 85 16 116/60 (78) 99 09/28/20 18:30 79 14 134/58 (83) 98 09/28/20 18:00 85 21 126/70 (88) 98 09/28/20 17:30 66 16 130/69 (89) 98 09/28/20 17:00 85 21 126/70 (88) 98 09/28/20 16:30 92 21 134/62 (86) 98 09/28/20 16:01 99.8 88 19 138/58 (84) 98 09/28/20 16:00 40 09/28/20 16:00 88 19 138/58 (84) 98 09/28/20 16:00 85 09/28/20 16:00 Mechanical Ventilator Intake and Output 09/28/20 09/29/20 19:00 07:00 Intake Total 1164.125 ml 1843.375 ml Output Total 1525 ml 2135 ml Balance -360.875 ml -291.625 ml Intake Free Water 260 ml 180 ml IV Total 814.125 ml 1303.375 ml Tube Feeding 60 ml 360 ml Other 30 ml Output Urine Total 1525 ml 1935 ml Stool Total 200 ml Laboratory Tests Test 09/29/20 04:52 White Blood Count 6.2 K/UL (4.8-10.8) Red Blood Count 2.75 M/UL (4.70-6.10) L Hemoglobin 8.7 G/DL (14.2-18.0) L Hematocrit 25.3 % (42.0-52.0) L Mean Corpuscular Volume 92 FL (80-99) Mean Corpuscular Hemoglobin 31.5 PG (27.0-31.0) H Mean Corpuscular Hemoglobin Concent 34.2 G/DL (32.0-36.0) Red Cell Distribution Width 13.9 % (11.6-14.8) Platelet Count 122 K/UL (150-450) L Mean Platelet Volume 9.3 FL (6.5-10.1) Neutrophils (%) (Auto) 76.9 % (45.0-75.0) H Lymphocytes (%) (Auto) 10.8 % (20.0-45.0) L Monocytes (%) (Auto) 5.1 % (1.0-10.0) Eosinophils (%) (Auto) 6.7 % (0.0-3.0) H Basophils (%) (Auto) 0.5 % (0.0-2.0) Erythrocyte Sedimentation Rate 113 MM/HR (0-20) H Sodium Level 139 MMOL/L (136-145) Potassium Level 3.4 MMOL/L (3.5-5.1) L Chloride Level 111 MMOL/L (98-107) H Carbon Dioxide Level 20 MMOL/L (21-32) L Anion Gap 8 mmol/L (5-15) Blood Urea Nitrogen 36 mg/dL (7-18) H Creatinine 2.1 MG/DL (0.55-1.30) H Estimat Glomerular Filtration Rate 31.0 mL/min (>60) Glucose Level 123 MG/DL (74-106) H Calcium Level 7.3 MG/DL (8.5-10.1) L Phosphorus Level 3.0 MG/DL (2.5-4.9) Magnesium Level 1.5 MG/DL (1.8-2.4) L Total Bilirubin 0.8 MG/DL (0.2-1.0) Aspartate Amino Transf (AST/SGOT) 74 U/L (15-37) H Alanine Aminotransferase (ALT/SGPT) 37 U/L (12-78) Alkaline Phosphatase 144 U/L (46-116) H C-Reactive Protein, Quantitative 13.2 mg/dL (0.00-0.90) H Total Protein 5.5 G/DL (6.4-8.2) L Albumin 1.6 G/DL (3.4-5.0) L Globulin 3.9 g/dL Albumin/Globulin Ratio 0.4 (1.0-2.7) L Random Vancomycin Level 19.0 ug/mL Objective HEAD AND NECK: Orally intubated. LUNGS: Coarse rhonchi. CARDIOVASCULAR: Irregular irregular and tachycardic S1 and S2 with no gallop. ABDOMEN: Soft. EXTREMITIES: No pitting edema. Carlos Eduardo Crespo MD Sep 29, 2020 15:52
--- NOTE | 2020-09-29 16:15 | NUR ---
NURSE NOTES: Pt repositioned. PO care provided. Afebrile. No distress noted. Will continue to monitor pt .
--- NOTE | 2020-09-29 17:05 | Internal Med Progress Note ---
Subjective Date of Service: Sep 29, 2020 Physician Name Shai Zimmer Attending Physician Andrés Rothman MD Current Medications Medications (Trade) Dose Ordered Sig/Fabrizio Route PRN Reason Start Time Stop Time Status Last Admin Dose Admin Acetaminophen (Tylenol) 650 mg Q4H PRN NG Mild Pain (Pain Scale 1-3) 09/23/20 13:30 10/23/20 13:29 09/23/20 13:42 Acetaminophen (Tylenol) 650 mg Q4H PRN NG Temp >100.5 09/23/20 13:30 10/23/20 13:29 09/26/20 08:04 Amiodarone HCl (Cordarone) 400 mg TID NG 09/26/20 14:30 12/24/20 21:14 09/29/20 17:01 Chlorhexidine Gluconate (Jennifer-Hex 2%) 1 applic DAILY@1999 TOPIC 09/22/20 20:00 12/21/20 19:59 09/28/20 20:28 Dextrose/Sodium Chloride 1,000 ml @ 100 mls/hr Q10H IV 09/22/20 11:00 10/22/20 10:59 09/29/20 11:44 Digoxin (Lanoxin) 0.125 mg DAILY ORAL 09/24/20 09:00 12/23/20 08:59 09/29/20 08:14 Haloperidol Lactate (Haldol) 5 mg Q6H PRN IM Agitation 09/21/20 23:45 11/05/20 23:44 Heparin Sodium (Porcine) (Heparin 5000 units/ml) 5,000 units EVERY 12 HOURS SUBQ 09/22/20 09:00 11/06/20 08:59 09/29/20 08:15 Midodrine (Pro-Amatine) 10 mg Q8HR ORAL 09/26/20 14:30 12/25/20 14:29 09/29/20 13:04 Norepinephrine Bitartrate 250 ml @ 0 mls/hr Q24H IV 09/29/20 14:17 10/02/20 14:16 09/29/20 14:21 Ondansetron HCl (Zofran) 4 mg Q6H PRN IVP Nausea & Vomiting 09/21/20 23:45 10/21/20 23:44 Pantoprazole (Protonix) 40 mg Q12HR IVP 09/22/20 21:00 10/22/20 08:59 09/29/20 08:15 Polyethylene Glycol (Miralax) 17 gm DAILYPRN PRN ORAL Constipation 09/21/20 23:45 10/21/20 23:44 Vancomycin HCl 300 ml @ 150 mls/hr ONCE IVPB 09/29/20 18:00 09/29/20 20:00 09/29/20 17:01 Vancomycin HCl (Vanco pharmacy to dose) 1 ea DAILY PRN MISC PER RX PROTOCOL 09/22/20 07:45 10/22/20 07:44 Allergies: Coded Allergies: No Known Allergies (Unverified , 07/22/20) ROS Limited/Unobtainable: Yes Subjective 75 YO M admitted with shortness of breath. Now respiratory failure. Intubated and sedated. ICU. Cover for Int Jesús-Dr Rothman Objective Last Vital Signs Date Time Temp Pulse Resp B/P (MAP) Pulse Ox O2 Delivery O2 Flow Rate FiO2 09/29/20 17:00 65 30 110/54 (72) 99 09/29/20 16:00 Mechanical Ventilator 09/29/20 16:00 40 09/29/20 16:00 98.7 09/22/20 08:00 15.0 Laboratory Tests Test 09/29/20 04:52 White Blood Count 6.2 K/UL (4.8-10.8) Red Blood Count 2.75 M/UL (4.70-6.10) L Hemoglobin 8.7 G/DL (14.2-18.0) L Hematocrit 25.3 % (42.0-52.0) L Mean Corpuscular Volume 92 FL (80-99) Mean Corpuscular Hemoglobin 31.5 PG (27.0-31.0) H Mean Corpuscular Hemoglobin Concent 34.2 G/DL (32.0-36.0) Red Cell Distribution Width 13.9 % (11.6-14.8) Platelet Count 122 K/UL (150-450) L Mean Platelet Volume 9.3 FL (6.5-10.1) Neutrophils (%) (Auto) 76.9 % (45.0-75.0) H Lymphocytes (%) (Auto) 10.8 % (20.0-45.0) L Monocytes (%) (Auto) 5.1 % (1.0-10.0) Eosinophils (%) (Auto) 6.7 % (0.0-3.0) H Basophils (%) (Auto) 0.5 % (0.0-2.0) Erythrocyte Sedimentation Rate 113 MM/HR (0-20) H Sodium Level 139 MMOL/L (136-145) Potassium Level 3.4 MMOL/L (3.5-5.1) L Chloride Level 111 MMOL/L (98-107) H Carbon Dioxide Level 20 MMOL/L (21-32) L Anion Gap 8 mmol/L (5-15) Blood Urea Nitrogen 36 mg/dL (7-18) H Creatinine 2.1 MG/DL (0.55-1.30) H Estimat Glomerular Filtration Rate 31.0 mL/min (>60) Glucose Level 123 MG/DL (74-106) H Calcium Level 7.3 MG/DL (8.5-10.1) L Phosphorus Level 3.0 MG/DL (2.5-4.9) Magnesium Level 1.5 MG/DL (1.8-2.4) L Total Bilirubin 0.8 MG/DL (0.2-1.0) Aspartate Amino Transf (AST/SGOT) 74 U/L (15-37) H Alanine Aminotransferase (ALT/SGPT) 37 U/L (12-78) Alkaline Phosphatase 144 U/L (46-116) H C-Reactive Protein, Quantitative 13.2 mg/dL (0.00-0.90) H Total Protein 5.5 G/DL (6.4-8.2) L Albumin 1.6 G/DL (3.4-5.0) L Globulin 3.9 g/dL Albumin/Globulin Ratio 0.4 (1.0-2.7) L Random Vancomycin Level 19.0 ug/mL Intake and Output 09/28/20 09/29/20 19:00 07:00 Intake Total 1164.125 ml 1843.375 ml Output Total 1525 ml 2135 ml Balance -360.875 ml -291.625 ml Intake Free Water 260 ml 180 ml IV Total 814.125 ml 1303.375 ml Tube Feeding 60 ml 360 ml Other 30 ml Output Urine Total 1525 ml 1935 ml Stool Total 200 ml Objective Objective General: remain on ventilation, unresponsive, cannot follow commands. HEENT: NCAT, sclera anicteric, PERRL, ET Tube, OG Tube. Neck: Supple, no significant jugular venous distention, Lungs: mech vent; mechanical breath sounds, decreased air at the bases, no wheezes. Heart: S1, S2, regular rate, tachycardia,, normal S1/S2, no murmurs, pacemaker at left side chest wall. Abdomen: soft, nontender, nondistended. Normoactive bowel sounds. : [place] catheter. Extremities: No Cyanosis , clubbing or edema. Neuro: limited secondary to patient's status, unable to follow commands. Assessment/Plan Assessment/Plan Assessment/Plan Assessment/Plan ASSESSMENT: This is a 75-year-old white male with: 1. Pneumonia. 2. Acute hypoxemic Respiratory failure. 3. Septic shock. 4. Non-ST elevated myocardial infarction. 5. Hypertension. 6. Benign prostatic hypertrophy. 7. Alzheimer's dementia. 8. Depression. 9. status post cardiopulmonary arrest / PEA arrest (09/22/2020) 10. Atrial fibrillation with rapid ventricular rate. 11. Acute renal failure on chronic renal insufficiency. 12. hypernatremia. 13. Multiorgan failure. 14. Acute E. coli UTI. 15. MRSA sepsis/bacteremia. 16. NSTEMI 17. sick sinus syndrome status post a pacemaker on 08/27/2020. 18. Ventricular tachycardia. TREATMENT: 1. Pneumonia. Abx: meropenem and vancomycin. An Infectious Disease consultation has been obtained with Dr. Aviles. Follow recommendations of Infectious Disease. A Pulmonary consultation has been obtained with Dr. Jaclyn Byrne. 2. Septic shock. The patient is currently on vasopressin. 3. Non-ST elevated myocardial infarction. A Cardiology consultation has been obtained with Dr. Carlos Eduardo Crespo. Follow recommendations of Cardiology. 4. Hypertension. The patient is currently hypotensive. Hold antihypertensive medication. 5. Benign prostatic hypertrophy. Continue Flomax as above. 6. Alzheimer's dementia. 7. History of schizophrenia/depression. 8. Pacemaker in situ. tolerated tube feeding at 45 cc/hr. on Amiodarone 400 mg 3 times a day Pressors: resume Levophed Drip CODE STATUS: DNR DVT prophylaxis: heparin subcu. Shai Zimmer MD Sep 29, 2020 17:05
--- NOTE | 2020-09-29 17:50 | Surgery Progress Note ---
Surgery Progress Note Subjective Additional Comments ill appearing no acute events labs noted micro reviewed Objective Last 24 Hour Vital Signs Date Time Temp Pulse Resp B/P (MAP) Pulse Ox O2 Delivery O2 Flow Rate FiO2 09/29/20 17:00 65 30 110/54 (72) 99 09/29/20 16:00 Mechanical Ventilator 09/29/20 16:00 69 09/29/20 16:00 40 09/29/20 16:00 98.7 67 30 116/53 (74) 99 09/29/20 15:30 69 26 114/52 (72) 98 09/29/20 15:10 68 25 40 09/29/20 15:00 69 31 110/56 (74) 98 09/29/20 14:30 70 29 101/51 (68) 98 09/29/20 14:21 114/65 09/29/20 14:00 69 29 95/52 (66) 99 09/29/20 13:30 72 27 100/46 (64) 98 09/29/20 13:00 66 28 102/51 (68) 99 09/29/20 12:30 73 25 105/51 (69) 99 09/29/20 12:00 Mechanical Ventilator 09/29/20 12:00 99.0 71 26 96/57 (70) 99 09/29/20 12:00 40 09/29/20 12:00 77 09/29/20 11:30 71 25 103/53 (70) 99 09/29/20 11:00 70 25 98/51 (67) 99 09/29/20 10:30 79 26 40 09/29/20 10:30 71 26 98/49 (65) 99 09/29/20 10:00 72 24 112/54 (73) 99 09/29/20 09:30 76 24 105/49 (67) 99 09/29/20 09:00 40 09/29/20 09:00 70 27 110/55 (73) 100 09/29/20 08:58 63 25 40 09/29/20 08:30 68 21 119/48 (71) 100 09/29/20 08:14 73 09/29/20 08:00 70 09/29/20 08:00 98.4 71 18 108/49 (68) 100 09/29/20 08:00 40 09/29/20 08:00 Mechanical Ventilator 09/29/20 07:30 72 16 118/63 (81) 100 09/29/20 07:15 71 0 124/53 (76) 100 09/29/20 07:00 73 7 119/63 (81) 100 09/29/20 06:45 70 18 112/55 (74) 100 09/29/20 06:40 84 14 09/29/20 06:30 72 7 119/60 (79) 100 09/29/20 06:30 77 20 40 09/29/20 06:15 71 12 111/62 (78) 100 09/29/20 06:00 73 23 103/64 (77) 100 09/29/20 05:45 74 24 98/60 (73) 100 09/29/20 05:30 74 23 111/57 (75) 100 09/29/20 05:15 76 28 101/58 (72) 100 09/29/20 05:02 76 28 103/54 (70) 100 09/29/20 05:00 98.6 74 25 104/56 (72) 100 09/29/20 04:45 74 29 09/29/20 04:35 78 26 104/52 (69) 100 09/29/20 04:32 106/30 09/29/20 04:30 79 33 86/59 (68) 100 09/29/20 04:15 78 24 101/52 (68) 100 09/29/20 04:00 40 09/29/20 04:00 Mechanical Ventilator 09/29/20 04:00 75 22 95/50 (65) 98 09/29/20 03:45 79 25 107/65 (79) 99 09/29/20 03:30 82 32 99/61 (74) 99 09/29/20 03:15 83 28 106/60 (75) 98 09/29/20 03:10 89 23 40 09/29/20 03:00 82 26 116/66 (83) 94 09/29/20 02:45 72 24 124/108 (113) 84 09/29/20 02:30 72 23 115/56 (75) 100 09/29/20 02:15 68 19 111/51 (71) 100 09/29/20 02:00 72 16 99/52 (68) 100 09/29/20 01:45 69 19 111/50 (70) 100 09/29/20 01:30 71 22 109/51 (70) 100 09/29/20 01:15 70 20 101/59 (73) 100 09/29/20 01:00 71 20 109/47 (67) 99 09/29/20 00:45 73 18 106/58 (74) 99 09/29/20 00:40 84 09/29/20 00:30 72 15 107/51 (69) 99 09/29/20 00:15 72 15 101/48 (65) 99 09/29/20 00:00 Mechanical Ventilator 09/29/20 00:00 98.5 70 16 103/50 (67) 99 09/29/20 00:00 40 09/29/20 00:00 81 09/28/20 23:45 73 16 110/53 (72) 99 09/28/20 23:30 73 16 120/51 (74) 99 09/28/20 23:15 72 17 99 09/28/20 23:00 74 16 118/52 (74) 99 09/28/20 22:45 76 15 120/53 (75) 99 09/28/20 22:37 77 21 40 09/28/20 22:30 74 16 102/56 (71) 99 09/28/20 22:15 78 12 117/58 (77) 99 09/28/20 22:00 73 16 126/56 (79) 99 09/28/20 21:45 76 17 108/62 (77) 98 09/28/20 21:30 75 18 116/63 (80) 98 09/28/20 21:15 77 16 104/47 (66) 99 09/28/20 21:00 77 16 107/57 (74) 99 09/28/20 20:45 79 15 131/56 (81) 98 09/28/20 20:30 81 16 132/73 (92) 98 09/28/20 20:15 78 18 122/64 (83) 98 09/28/20 20:00 98.6 82 16 120/52 (74) 98 09/28/20 20:00 Mechanical Ventilator 09/28/20 20:00 40 09/28/20 20:00 84 09/28/20 19:45 85 19 124/53 (76) 98 09/28/20 19:30 79 16 130/60 (83) 99 09/28/20 19:15 83 10 132/59 (83) 98 09/28/20 19:08 83 18 40 09/28/20 19:00 85 16 116/60 (78) 99 09/28/20 18:30 79 14 134/58 (83) 98 09/28/20 18:00 85 21 126/70 (88) 98 I&O Intake and Output 09/28/20 09/29/20 19:00 07:00 Intake Total 1164.125 ml 1843.375 ml Output Total 1525 ml 2135 ml Balance -360.875 ml -291.625 ml Intake Free Water 260 ml 180 ml IV Total 814.125 ml 1303.375 ml Tube Feeding 60 ml 360 ml Other 30 ml Output Urine Total 1525 ml 1935 ml Stool Total 200 ml Dressing: saturated Cardiovascular: RSR Respiratory: decreased breath sounds Abdomen: soft, non-tender, present bowel sounds Extremities: no tenderness, no cyanosis, other Laboratory Tests Test 09/29/20 04:52 White Blood Count 6.2 K/UL (4.8-10.8) Red Blood Count 2.75 M/UL (4.70-6.10) L Hemoglobin 8.7 G/DL (14.2-18.0) L Hematocrit 25.3 % (42.0-52.0) L Mean Corpuscular Volume 92 FL (80-99) Mean Corpuscular Hemoglobin 31.5 PG (27.0-31.0) H Mean Corpuscular Hemoglobin Concent 34.2 G/DL (32.0-36.0) Red Cell Distribution Width 13.9 % (11.6-14.8) Platelet Count 122 K/UL (150-450) L Mean Platelet Volume 9.3 FL (6.5-10.1) Neutrophils (%) (Auto) 76.9 % (45.0-75.0) H Lymphocytes (%) (Auto) 10.8 % (20.0-45.0) L Monocytes (%) (Auto) 5.1 % (1.0-10.0) Eosinophils (%) (Auto) 6.7 % (0.0-3.0) H Basophils (%) (Auto) 0.5 % (0.0-2.0) Erythrocyte Sedimentation Rate 113 MM/HR (0-20) H Sodium Level 139 MMOL/L (136-145) Potassium Level 3.4 MMOL/L (3.5-5.1) L Chloride Level 111 MMOL/L (98-107) H Carbon Dioxide Level 20 MMOL/L (21-32) L Anion Gap 8 mmol/L (5-15) Blood Urea Nitrogen 36 mg/dL (7-18) H Creatinine 2.1 MG/DL (0.55-1.30) H Estimat Glomerular Filtration Rate 31.0 mL/min (>60) Glucose Level 123 MG/DL (74-106) H Calcium Level 7.3 MG/DL (8.5-10.1) L Phosphorus Level 3.0 MG/DL (2.5-4.9) Magnesium Level 1.5 MG/DL (1.8-2.4) L Total Bilirubin 0.8 MG/DL (0.2-1.0) Aspartate Amino Transf (AST/SGOT) 74 U/L (15-37) H Alanine Aminotransferase (ALT/SGPT) 37 U/L (12-78) Alkaline Phosphatase 144 U/L (46-116) H C-Reactive Protein, Quantitative 13.2 mg/dL (0.00-0.90) H Total Protein 5.5 G/DL (6.4-8.2) L Albumin 1.6 G/DL (3.4-5.0) L Globulin 3.9 g/dL Albumin/Globulin Ratio 0.4 (1.0-2.7) L Random Vancomycin Level 19.0 ug/mL Plan Problems: (1) Septic shock Assessment & Plan: anemia lactic acidosis elevated t bili / d bili imaging reviewed ill appearing weaning pressors as tolerated local care provided will follow with recs thank you Pt presented on admission with multiple Pressure Injuries.Cat 3 Skin Tear pily L chest. Base of wound is moist ,viable with 100% flap loss.No exudate noted. Cat 2 Skin Tear ventral L forearm. 20% skin flap loss,80% flap in-situ. Cat 2 Skin tear dorsal L forearm with 10% flap loss,90% skin flap in situ. Sacral DTPI(L)12cm x (W)17.5cm. Base of Pressure injury maroon with scattered Purpuric areas within base of injury. Surrounding non-blanchable erythema without induration. Perianal area is erythematous. Partial Thickness Pressure injury at head of penis. Base of wound is moist and viable. Both R and L Heels are Boggy with Non-blanchable erythema. Tx.Plan: Apply Optifoam drsgs to L chest, L forearm. Change every 7 days and prn. Apply Moisture Barrier Past to sacrum. Cover with Optifoam drsg. Change every 3 days and prn. Apply Moisture Barrier Paste to penis and Perianal areas with each incontinence care. Apply Cavilon Skin Barrier to both heels. Cover each heel with Optifoam drsg. Change every 7 days and prn. Reposition at least every 2hours or as tolerated. Off-load heels with Pillow. APM/JARED Mattress. DAILY ESTIMATED NEEDS: Needs based on Critical care, wound, ARF/ 77kg abw 22-28 kcals/kg 8502-9459 total kcals 0.8-1.25 (increase w/ renal improvement) g protein/kg 61-96 g total protein 20-25 mL/kg 7606-5148 total fluid mLs NUTRITION DIAGNOSIS: Swallowing difficulty r/t respiratory failure as evidenced by orally intubated upon adm, now s/p code blue (09/22), on pressor support. CURRENT TF:npo PO DIET RECOMMENDATIONS: RN CARDIOVASCULAR ICU eval post extubation ENTERAL NUTRITION RECOMMENDATIONS: Glucerna 1.2 @ 60ml/hr x 24 hrs to provide 1440ml, 1728kcal, 86g prot, 1159ml free water * WITH HEMODYNAMIC STABILITY -> Initiate Glucerna 1.2 @ 20ml/hrs x 6 hrs, advance 10ml q 4-6 hrs as tolerated to goal -> Flush per MD. HOB over 30 degrees -> Monitor renal fxn and lytes, need for renal TF of Nepro Without hemodynamic stability: rec trophic feeding of Glucerna 1.2 @ 10- 15ml/hr x 24 hrs ADDITIONAL RECOMMENDATIONS: * Calibrated bedscale wt * Monitor hemodynamic stability, ability to feed * Monitor renal fxn and lytes, need for renal TF formula (creat wnl last adm -> 5.2 at this time, K wnl, phos and mag low) * NISS w/ TF * Wound healing: f/up w/ WC eval, add Omar BID w/ TF (2) Multiorgan failure (3) Rapid atrial fibrillation (4) Compression fracture of L3 vertebra (5) Social isolation (6) Impaired mobility and ADLs (7) UTI (urinary tract infection) (8) Suicidal ideations (9) HTN (hypertension) (10) Failure to thrive in adult (11) Renal failure (ARF), acute on chronic (12) ANGI (acute kidney injury) (13) BPH (benign prostatic hyperplasia) (14) Schizoaffective disorder (15) Sick sinus syndrome (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 There is retrocardiac consolidation which is increased. Left upper lung, right lung and pleural space are clear. There is a left chest bifocal pacemaker. Stable satisfactory positions of endotracheal and orogastric tubes. Impression: Increased left pleural effusion and retrocardiac consolidation. Eber Slater Sep 29, 2020 17:50
[2020-09-29] MEDS ORDERED: Vancomycin 1.5gm/300ml Premix IVPB SCH (18:00)
--- NOTE | 2020-09-29 18:15 | NUR ---
NURSE NOTES: Pt successfully extubated and placed on 5L O2 via NC. SpO2 95%. no distress noted. Will continue to monitor.
--- NOTE | 2020-09-29 19:27 | NUR ---
NURSE HAND-OFF REPORT: Latest Vital Signs: Temperature 98.7 , Pulse 60 , B/P 92 /46 , Respiratory Rate 31 , O2 SAT 98 , Nasal Cannula, O2 Flow Rate 5.0 . Vital Sign Comment: EKG Rhythm: AV-Paced Rhythm change?: N MD Notified?: n/a MD Response: n/a Latest Robertson Fall Score: 75 Fall Risk: High Risk Safety Measures: Call light Within Reach, Bed Alarm Zone 1, Side Rails Side Rails x2, Bed position Low and Locked. Fall Precautions: Yellow Socks Yellow Gown Door Sign Patient Fall Education Report given to KRYSTYNA Fuentes.
--- NOTE | 2020-09-29 19:52 | NUR ---
NURSE NOTES: received pt obtunded dnr dni extubated today at 2l n/c with o2 sat 93-95 no resp distress noted tolerating tube feeding no residual urinary output good reposition and suction on levo drip at 1mcg/min iv site good dessing dry and intact
[2020-09-29] MEDS: Dyna-Hex 2% Top Sol 2oz TOPIC SCH (20:46)
[2020-09-30] VITALS (28 sets, daily range): BP systolic 98–135; BP diastolic 39–84
--- NOTE | 2020-09-30 | NUR ---
NURSE NOTES: condition un change
--- NOTE | 2020-09-30 04:00 | NUR ---
NURSE NOTES: complete bed bath
[2020-09-30 06:17] LABS: BASOPHILS % (AUTO) 0.9 % (0.0-2.0); EOSINOPHILS % (AUTO) 3.6 % (0.0-3.0); HEMATOCRIT 27.3 % (42.0-52.0); HEMOGLOBIN 8.7 G/DL (14.2-18.0); LYMPHOCYTES % (AUTO) 4.4 % (20.0-45.0); MEAN CORPUSCULAR VOLUME 102 FL (80-99); MONOCYTES % (AUTO) 15.3 % (1.0-10.0); NEUTROPHILS % (AUTO) 75.9 % (45.0-75.0); PLATELET COUNT 176 K/UL (150-450); RED BLOOD COUNT 2.68 M/UL (4.70-6.10); RED CELL DISTRIBUTION WIDTH 15.1 % (11.6-14.8); WHITE BLOOD COUNT 9.5 K/UL (4.8-10.8)
[2020-09-30 06:43] LABS: ALBUMIN 1.8 G/DL (3.4-5.0); ALBUMIN/GLOBULIN RATIO 0.4 (1.0-2.7); BILIRUBIN,TOTAL 0.6 MG/DL (0.2-1.0); CALCIUM 7.3 MG/DL (8.5-10.1); CREATININE 2.4 MG/DL (0.55-1.30); PHOSPHORUS 5.2 MG/DL (2.5-4.9)
--- NOTE | 2020-09-30 07:20 | NUR ---
NURSE NOTES: Received report from KRYSTYNA Waters. Patient in bed resting, tachypnea RR 40, O2 sat 92% on NC 5L. Patient obtunded, Patient AV paced HR 60. Patient on OG tube, running Glucerna @ 45ml/h. Whiting Catheter draining well to gravity at this time. Endorsed patient extubated yesterday, DNR/DNI, need of CT heat when stable. IV on D5 10/04 NS @ 100ml/h. Central line on right femoral TLC, patent, intact. BP 109/47, titrating norepinephrine as protocol. Bed in lowest position, side rails upx3, call light within reach, bed alarm on ,Will continue to monitor.
--- NOTE | 2020-09-30 07:36 | NUR ---
NURSE HAND-OFF REPORT: Latest Vital Signs: Temperature 99.0 , Pulse 60 , B/P 109 /51 , Respiratory Rate 39 , O2 SAT 90 , Mechanical Ventilator, O2 Flow Rate 5.0 . Vital Sign Comment: EKG Rhythm: AV-Paced Rhythm change?: N MD Notified?: Jerrod Crespo MD Response: Order Received& Read Back Latest Robertson Fall Score: 75 Fall Risk: High Risk Safety Measures: Call light Within Reach, Bed Alarm Zone 1, Side Rails Side Rails x2, Bed position Low and Locked. Fall Precautions: Yellow Socks Yellow Gown Door Sign Patient Fall Education Report given to hans sapp usinglolisbar.
[2020-09-30] MEDS: D5 1/4NS 1000ml 1,000 ML IV SCH ×2 (08:03→17:27)
[2020-09-30] MEDS: Digoxin 0.125mg tab ORAL SCH (08:09)
[2020-09-30] MEDS: Pantoprazole Inj IVP SCH ×2 (08:11→21:51)
[2020-09-30] MEDS: Heparin 5000 units/ml inj SUBQ SCH ×2 (08:14→21:00)
--- NOTE | 2020-09-30 08:17 | NUR ---
RD ASSESSMENT & RECOMMENDATIONS SEE CARE ACTIVITY FOR COMPLETE ASSESSMENT DAILY ESTIMATED NEEDS: Needs based on Critical care, wound, ARF/ 77kg abw 22-28 kcals/kg 2606-4018 total kcals 0.8-1.25 (increase w/ renal improvement) g protein/kg 61-96 g total protein 20-25 mL/kg 9896-6688 total fluid mLs NUTRITION DIAGNOSIS: Swallowing difficulty r/t respiratory failure as evidenced by orally intubated upon adm, now s/p code blue (09/22), on pressor support. CURRENT TF: Glucerna 1.2 @45ml/hr ENTERAL NUTRITION RECOMMENDATIONS: Glucerna 1.2 @ 60ml/hr x 24 hrs to provide 1440ml, 1728kcal, 86g prot, 1159ml free water * WITH HEMODYNAMIC STABILITY -> Initiate Glucerna 1.2 @ 20ml/hrs x 6 hrs, advance 10ml q 4-6 hrs as tolerated to goal -> Flush per MD. HOB over 30 degrees Without hemodynamic stability: rec trophic feeding of Glucerna 1.2 @ 10-15ml/hr x 24 hrs With worsening renal labs (K, phos up), monitor need for renal formula. ADDITIONAL RECOMMENDATIONS: * Calibrated bedscale wt * Monitor hemodynamic stability, ability to feed * Monitor renal fxn and lytes, need for renal TF formula (creat wnl last adm ->2.4 at this time; K, phos, up) * NISS w/ TF * Wound healing: add Omar BID w/ TF * EXTRUSION BENDER for oral diet when appropriate .
[2020-09-30] MEDS: Amiodarone 200mg tab NG SCH (08:43)
--- NOTE | 2020-09-30 09:00 | NUR ---
NURSE NOTES: Norepinephrine titrated to 0mcg/hr, SBP 104/48, SR 60.
[2020-09-30] MEDS ORDERED: Tubing IV Secondary IV ONE (09:03)
[2020-09-30] MEDS ORDERED: Sterile Water Irrig 1000ml IRRIG ONE (09:03)
[2020-09-30] MEDS ORDERED: NS 275ml ONE (09:03)
--- NOTE | 2020-09-30 09:16 | Infectious Diseases Prog Note ---
Assessment/Plan 75yo M with: Septic shock MRSA bacteremia CODE BLUE 09/21, s/p ROSC Pneumonia, c/f aspiration Hypoxic resp failure s/p intubation 09/21 R/o UTI Hypotension on pressors ANGI, Cr in 5s Elevated AST to 100s Febrile Normal WBC Lymphopenia 09/21 BCx +MRSA UA+ UCx E.coli S-CTX Resp cx +MSSA COVID rapid neg, PCR NEG CT chest: 1. Almost complete opacification of the left mainstem bronchus, segmental and subsegmental bronchi with presumed debris. Tree-in-bud nodularity along with patchy airspace consolidations are identified in the bilateral lower lobes, left greater than right. Constellation of findings are suspicious for aspiration pneumonia. 2. Left lower lobe and lingular subsegmental atelectasis. 3. 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 TTE: No vegetations 09/23 BCx NTD 09/25 BCx NTD 09/29 CXR: Worsening infiltrate on the left. Unchanged infiltrate on the right, since prior exam 09/30 CXR: Slight worsening of infiltrates on the right. Stable infiltrates on the left HyperNa to 170 on admission ANGI on CKD, Cr in 5s, worsening SNF resident Dementia Plan: Cont vanco IV # for MRSA bacteremia, empiric for endocarditis given inability to r/o w/ CHANDLER If transitions to comfort care, would stop abx Recommend CHANDLER given presenting sepsis w/ MRSA bacteremia of unclear source (resp cx has MSSA) - per d/w RN, not candidate given DNR/DNI and considering comfort care 09/29 SP mis #7 empiric given arrest 09/22 SP amikacin x1 09/21 SP Zosyn in ED Monitor CBC/CMP Monitor temp curve, hemodynamics Monitor resp status D/w RN Thank you for this consult. [facility] will continue to follow. Subjective Allergies: Coded Allergies: No Known Allergies (Unverified , 07/22/20) AF On 5L NC WBC 9.5 NAD Off levophed now Objective Last 24 Hour Vital Signs Date Time Temp Pulse Resp B/P (MAP) Pulse Ox O2 Delivery O2 Flow Rate FiO2 09/30/20 08:09 59 09/30/20 08:00 Nasal Cannula 5.0 09/30/20 08:00 98.0 60 39 104/48 (66) 92 09/30/20 08:00 5.0 09/30/20 08:00 60 09/30/20 07:30 60 41 103/47 (65) 93 09/30/20 07:00 60 39 109/51 (70) 90 09/30/20 06:30 60 39 106/54 (71) 94 09/30/20 06:00 60 39 110/45 (66) 98 09/30/20 05:30 60 36 114/53 (73) 100 09/30/20 05:00 60 36 131/49 (76) 100 09/30/20 04:30 60 34 133/84 (100) 99 09/30/20 04:00 5.0 09/30/20 04:00 60 09/30/20 04:00 Nasal Cannula 5.0 09/30/20 04:00 99.0 60 29 135/53 (80) 93 09/30/20 03:30 60 38 111/39 (63) 89 09/30/20 03:00 60 39 98/45 (62) 88 09/30/20 02:30 60 37 106/43 (64) 88 09/30/20 02:00 60 37 103/53 (70) 91 09/30/20 01:30 60 36 108/40 (62) 82 09/30/20 01:00 98.5 60 34 102/43 (62) 94 09/30/20 00:30 60 38 103/46 (65) 94 09/30/20 00:00 60 39 104/54 (71) 94 09/30/20 00:00 60 09/30/20 00:00 Nasal Cannula 5.0 09/30/20 00:00 5.0 09/29/20 23:30 61 32 103/54 (70) 97 09/29/20 23:00 60 35 106/51 (69) 97 09/29/20 22:30 60 30 106/55 (72) 98 09/29/20 22:00 60 38 108/51 (70) 91 09/29/20 21:30 60 32 107/53 (71) 93 09/29/20 21:00 60 34 103/51 (68) 97 09/29/20 20:30 61 36 101/51 (68) 89 09/29/20 20:00 60 09/29/20 20:00 5.0 09/29/20 20:00 Nasal Cannula 5.0 09/29/20 20:00 60 36 104/45 (64) 93 09/29/20 19:24 98 Nasal Cannula 5.0 40 09/29/20 19:15 60 31 92/46 (61) 96 09/29/20 19:00 61 34 107/39 (61) 94 09/29/20 19:00 64 33 102/40 (60) 95 09/29/20 18:45 61 32 97/43 (61) 99 09/29/20 18:30 62 33 108/47 (67) 97 09/29/20 18:16 Nasal Cannula 5.0 09/29/20 18:15 5.0 09/29/20 18:00 69 20 102/49 (66) 92 09/29/20 17:00 65 30 110/54 (72) 99 09/29/20 16:00 Mechanical Ventilator 09/29/20 16:00 69 09/29/20 16:00 40 09/29/20 16:00 98.7 67 30 116/53 (74) 99 09/29/20 15:30 69 26 114/52 (72) 98 09/29/20 15:10 68 25 40 09/29/20 15:00 69 31 110/56 (74) 98 09/29/20 14:30 70 29 101/51 (68) 98 09/29/20 14:21 114/65 09/29/20 14:00 69 29 95/52 (66) 99 09/29/20 13:30 72 27 100/46 (64) 98 09/29/20 13:00 66 28 102/51 (68) 99 09/29/20 12:30 73 25 105/51 (69) 99 09/29/20 12:00 Mechanical Ventilator 09/29/20 12:00 99.0 71 26 96/57 (70) 99 09/29/20 12:00 40 09/29/20 12:00 77 09/29/20 11:30 71 25 103/53 (70) 99 09/29/20 11:00 70 25 98/51 (67) 99 09/29/20 10:30 79 26 40 09/29/20 10:30 71 26 98/49 (65) 99 09/29/20 10:00 72 24 112/54 (73) 99 09/29/20 09:30 76 24 105/49 (67 99 Height (Feet): 5 Height (Inches): 9.00 Weight (Pounds): 190 Gen: NAD HEENT: NCAT Pulm: BL chest rise Abd: Non-distended Ext: No c/c/e Skin: No visible rashes Neuro: Awake Laboratory Tests Test 09/30/20 04:30 White Blood Count 9.5 K/UL (4.8-10.8) # Red Blood Count 2.68 M/UL (4.70-6.10) L Hemoglobin 8.7 G/DL (14.2-18.0) L Hematocrit 27.3 % (42.0-52.0) L Mean Corpuscular Volume 102 FL (80-99) #H Mean Corpuscular Hemoglobin 32.6 PG (27.0-31.0) H Mean Corpuscular Hemoglobin Concent 32.0 G/DL (32.0-36.0) Red Cell Distribution Width 15.1 % (11.6-14.8) H Platelet Count 176 K/UL (150-450) Mean Platelet Volume 8.6 FL (6.5-10.1) Neutrophils (%) (Auto) 75.9 % (45.0-75.0) H Lymphocytes (%) (Auto) 4.4 % (20.0-45.0) L Monocytes (%) (Auto) 15.3 % (1.0-10.0) H Eosinophils (%) (Auto) 3.6 % (0.0-3.0) H Basophils (%) (Auto) 0.9 % (0.0-2.0) Erythrocyte Sedimentation Rate 106 MM/HR (0-20) H Sodium Level 136 MMOL/L (136-145) Potassium Level 5.0 MMOL/L (3.5-5.1) Chloride Level 109 MMOL/L (98-107) H Carbon Dioxide Level 19 MMOL/L (21-32) L Anion Gap 8 mmol/L (5-15) Blood Urea Nitrogen 40 mg/dL (7-18) H Creatinine 2.4 MG/DL (0.55-1.30) H Estimat Glomerular Filtration Rate 26.6 mL/min (>60) Glucose Level 115 MG/DL (74-106) H Calcium Level 7.3 MG/DL (8.5-10.1) L Phosphorus Level 5.2 MG/DL (2.5-4.9) H Magnesium Level 2.3 MG/DL (1.8-2.4) Total Bilirubin 0.6 MG/DL (0.2-1.0) Aspartate Amino Transf (AST/SGOT) 124 U/L (15-37) H Alanine Aminotransferase (ALT/SGPT) 64 U/L (12-78) Alkaline Phosphatase 165 U/L (46-116) H C-Reactive Protein, Quantitative 11.4 mg/dL (0.00-0.90) H Total Protein 6.1 G/DL (6.4-8.2) L Albumin 1.8 G/DL (3.4-5.0) L Globulin 4.3 g/dL Albumin/Globulin Ratio 0.4 (1.0-2.7) L Current Medications Medications (Trade) Dose Ordered Sig/Fabrizio Route PRN Reason Start Time Stop Time Status Last Admin Dose Admin Acetaminophen (Tylenol) 650 mg Q4H PRN NG Mild Pain (Pain Scale 1-3) 09/23/20 13:30 10/23/20 13:29 09/23/20 13:42 Acetaminophen (Tylenol) 650 mg Q4H PRN NG Temp >100.5 09/23/20 13:30 10/23/20 13:29 09/26/20 08:04 Amiodarone HCl (Cordarone) 400 mg TID NG 09/26/20 14:30 12/24/20 21:14 09/30/20 08:43 Chlorhexidine Gluconate (Jennifer-Hex 2%) 1 applic DAILY@2000 TOPIC 09/22/20 20:00 12/21/20 19:59 09/29/20 20:46 Dextrose/Sodium Chloride 1,000 ml @ 100 mls/hr Q10H IV 09/22/20 11:00 10/22/20 10:59 09/30/20 08:03 Digoxin (Lanoxin) 0.125 mg DAILY ORAL 09/24/20 09:00 12/23/20 08:59 09/29/20 08:14 Haloperidol Lactate (Haldol) 5 mg Q6H PRN IM Agitation 09/21/20 23:45 11/05/20 23:44 Heparin Sodium (Porcine) (Heparin 5000 units/ml) 5,000 units EVERY 12 HOURS SUBQ 09/22/20 09:00 11/06/20 08:59 09/30/20 08:14 Midodrine (Pro-Amatine) 10 mg Q8HR ORAL 09/26/20 14:30 12/25/20 14:29 09/29/20 22:07 Norepinephrine Bitartrate 250 ml @ 0 mls/hr Q24H IV 09/29/20 14:17 10/02/20 14:16 09/29/20 14:21 Ondansetron HCl (Zofran) 4 mg Q6H PRN IVP Nausea & Vomiting 09/21/20 23:45 10/21/20 23:44 Pantoprazole (Protonix) 40 mg Q12HR IVP 09/22/20 21:00 10/22/20 08:59 09/30/20 08:11 Polyethylene Glycol (Miralax) 17 gm DAILYPRN PRN ORAL Constipation 09/21/20 23:45 10/21/20 23:44 Vancomycin HCl (Vanco pharmacy to dose) 1 ea DAILY PRN MISC PER RX PROTOCOL 09/22/20 07:45 10/22/20 07:44 Rosaura Aviles M.D. Sep 30, 2020 09:16
--- NOTE | 2020-09-30 09:48 | NUR ---
RADIOLOGY DEPT., CHEST X-RAY DONE.-P.DYE
--- NOTE | 2020-09-30 10:07 | Nephrology Progress Note ---
Assessment/Plan Problem List: (1) ANGI (acute kidney injury) (2) Septic shock (3) Hypernatremia (4) NSTEMI (non-ST elevated myocardial infarction) (5) Acute respiratory failure (6) Dehydration (7) Rhabdomyolysis Assessment Sepsis, shock Acute renal failure Acute respiratory failure Hypernatremia, dehydration Non-STEMI Plan September 30: Serum creatinine ronak from 2.1 to 2.4. Patient on vancomycin and digoxin. Patient was weaned off respiratory yesterday and currently on nasal cannula and since he is DNR/DNI is not going to be reintubated. Continue to mon itor renal parameters and monitor vancomycin and digoxin level. Continue per consultants. September 29: Labs reviewed. Renal parameters improving. Abnormal electrolytes addressed. Continue per consultants. Remains intubated. September 28: No labs drawn today. Remains intubated. Continue to monitor renal parameters. Continue per consultants. September 27: Renal parameters improving. Hemodynamically stable. Continue per current treatment plan. September 26: Renal parameters improving. Midodrine added to keep the blood pressure over 95 systolic. Albumin bolus given. Waiting for vitamin D level. Continue to monitor renal parameters and electrolytes. September 25: Discussed with KRYSTYNA [place]. Off pressors. Renal parameters improving. Will cut down IV fluid and give albumin bolus. Will give high dose of vitamin D for 3 days. Will check vitamin D level. September 24: Seen in ICU. Remains intubated. Urine output improved. Serum creatinine lower. Serum CPK lower. Abnormal electrolytes addressed. Continue to monitor renal parameters. Albumin bolus given. IV rate down to 150 cc an hour. September 23: Patient intubated on ventilator. Full code. Labs reviewed. IV fluid adjusted. Abnormal electrolytes addressed. Monitor CPK for rhabdo Previously: Fluid challenge IV hydration Albumin 5% Water through NG tube Monitor renal parameters Antibiotics Urine studies Avoid nephrotoxic's Poor prognosis Patient full code Per orders Subjective ROS Limited/Unobtainable: Yes Objective Objective Last 24 Hour Vital Signs Date Time Temp Pulse Resp B/P (MAP) Pulse Ox O2 Delivery O2 Flow Rate FiO2 09/30/20 09:00 60 37 101/45 (63) 93 09/30/20 08:09 59 09/30/20 08:00 Nasal Cannula 5.0 09/30/20 08:00 98.0 60 39 104/48 (66) 92 09/30/20 08:00 5.0 12/31/20 08:00 60 09/30/20 07:30 60 41 103/47 (65) 93 09/30/20 07:00 60 39 109/51 (70) 90 09/30/20 06:30 60 39 106/54 (71) 94 09/30/20 06:00 60 39 110/45 (66) 98 09/30/20 05:30 60 36 114/53 (73) 100 09/30/20 05:00 60 36 131/49 (76) 100 09/30/20 04:30 60 34 133/84 (100) 99 09/30/20 04:00 5.0 09/30/20 04:00 60 09/30/20 04:00 Nasal Cannula 5.0 09/30/20 04:00 99.0 60 29 135/53 (80) 93 09/30/20 03:30 60 38 111/39 (63) 89 09/30/20 03:00 60 39 98/45 (62) 88 09/30/20 02:30 60 37 106/43 (64) 88 09/30/20 02:00 60 37 103/53 (70) 91 09/30/20 01:30 60 36 108/40 (62) 82 09/30/20 01:00 98.5 60 34 102/43 (62) 94 09/30/20 00:30 60 38 103/46 (65) 94 09/30/20 00:00 60 39 104/54 (71) 94 09/30/20 00:00 60 09/30/20 00:00 Nasal Cannula 5.0 09/30/20 00:00 5.0 09/29/20 23:30 61 32 103/54 (70) 97 09/29/20 23:00 60 35 106/51 (69) 97 09/29/20 22:30 60 30 106/55 (72) 98 09/29/20 22:00 60 38 108/51 (70) 91 09/29/20 21:30 60 32 107/53 (71) 93 09/29/20 21:00 60 34 103/51 (68) 97 09/29/20 20:30 61 36 101/51 (68) 89 09/29/20 20:00 60 09/29/20 20:00 5.0 09/29/20 20:00 Nasal Cannula 5.0 09/29/20 20:00 60 36 104/45 (64) 93 09/29/20 19:24 98 Nasal Cannula 5.0 40 09/29/20 19:15 60 31 92/46 (61) 96 09/29/20 19:00 61 34 107/39 (61) 94 09/29/20 19:00 64 33 102/40 (60) 95 09/29/20 18:45 61 32 97/43 (61) 99 09/29/20 18:30 62 33 108/47 (67) 97 09/29/20 18:16 Nasal Cannula 5.0 09/29/20 18:15 5.0 09/29/20 18:00 69 20 102/49 (66) 92 09/29/20 17:00 65 30 110/54 (72) 99 09/29/20 16:00 Mechanical Ventilator 09/29/20 16:00 69 09/29/20 16:00 40 09/29/20 16:00 98.7 67 30 116/53 (74) 99 09/29/20 15:30 69 26 114/52 (72) 98 09/29/20 15:10 68 25 40 09/29/20 15:00 69 31 110/56 (74) 98 09/29/20 14:30 70 29 101/51 (68) 98 09/29/20 14:21 114/65 09/29/20 14:00 69 29 95/52 (66) 99 09/29/20 13:30 72 27 100/46 (64) 98 09/29/20 13:00 66 28 102/51 (68) 99 09/29/20 12:30 73 25 105/51 (69) 99 09/29/20 12:00 Mechanical Ventilator 09/29/20 12:00 99.0 71 26 96/57 (70) 99 09/29/20 12:00 40 09/29/20 12:00 77 09/29/20 11:30 71 25 103/53 (70) 99 09/29/20 11:00 70 25 98/51 (67) 99 09/29/20 10:30 79 26 40 09/29/20 10:30 71 26 98/49 (65) 99 Intake and Output 12/30/20 12/31/20 19:00 07:00 Intake Total 2530.0000 ml 1851.25 ml Output Total 1025 ml 510 ml Balance 1505.0000 ml 1341.25 ml Intake Free Water 60 ml 70 ml IV Total 1970.0000 ml 1241.25 ml Tube Feeding 500 ml 540 ml Output Urine Total 975 ml 510 ml Stool Total 50 ml # Bowel Movements 4 53 Laboratory Tests 09/30/20 04:30: White Blood Count 9.5#, Red Blood Count 2.68L, Hemoglobin 8.7L, Hematocrit 27.3L , Mean Corpuscular Volume 102#H, Mean Corpuscular Hemoglobin 32.6H, Mean Co rpuscular Hemoglobin Concent 32.0, Red Cell Distribution Width 15.1H, Platelet Count 176, Mean Platelet Volume 8.6, Neutrophils (%) (Auto) 75.9H, Lymphocytes (%) (Auto) 4.4L, Monocytes (%) (Auto) 15.3H, Eosinophils (%) (Auto) 3.6H, Basophils (%) (Auto) 0.9, Erythrocyte Sedimentation Rate 106H, Sodium Level 136, Potassium Level 5.0, Chloride Level 109H, Carbon Dioxide Level 19L, Anion Gap 8, Blood Urea Nitrogen 40H, Creatinine 2.4H, Estimat Glomerular Filtration Rate 26.6, Glucose Level 115H, Calcium Level 7.3L, Phosphorus Level 5.2H, Magnesium Level 2.3, Total Bilirubin 0.6, Aspartate Amino Transf (AST/SGOT) 124H, Alanine Aminotransferase (ALT/SGPT) 64, Alkaline Phosphatase 165H, C-Reactive Protein, Quantitative 11.4H, Total Protein 6.1L, Albumin 1.8L, Globulin 4.3, Albumin/Globulin Ratio 0.4L Height (Feet): 5 Height (Inches): 9.00 Weight (Pounds): 190 General Appearance: no apparent distress, lethargic EENT: other - On nasal cannula Cardiovascular: normal rate Respiratory/Chest: decreased breath sounds Abdomen: distended Objective No change Gelacio Mata MD Sep 30, 2020 10:07
--- NOTE | 2020-09-30 10:11 | NUR ---
NURSE NOTES: Lab called for Vitamin D hydroxy result, per Maddy from lab, pending result.
--- NOTE | 2020-09-30 10:30 | NUR ---
NURSE NOTES: Dr. Byrne at the nursing station, made aware patient Levophed been titrated to 0mcg/hr, per MD do not discontinue the order, closely follow up. No new order received at this time, Will continue to monitor.
--- NOTE | 2020-09-30 10:33 | Pulmonolgy Critical Care Note ---
Critical Care - Asmt/Plan Problems: (1) Multiorgan failure (2) Septic shock (3) Acute respiratory failure (4) Rapid atrial fibrillation (5) ARF (acute renal failure) (6) Pulseless ventricular tachycardia (7) Cardiopulmonary arrest (8) Schizoaffective disorder Respiratory: monitor respiratory rate, adjust FIO2, CXR Cardiac: continue pressors, continue to monitor HR/BP Renal: F/U I&O, keep IV fluid, check electrolytes Infectious Disease: check cultures Gastrointestinal: continue feedings/current rate Endocrine: monitor blood sugar, check HgA1C Hematologic: monitor H/H Neurologic: PRN Ativan Affect: PRN ativan Prophylaxis: Protonix Time Spent (Minutes): 40 Notes Reviewed: building surveyor, cardio, renal Discussed with: nurses, consultants, manager of casemanager call - Objective Last 24 Hour Vital Signs Date Time Temp Pulse Resp B/P (MAP) Pulse Ox O2 Delivery O2 Flow Rate FiO2 09/30/20 09:00 60 37 101/45 (63) 93 09/30/20 08:09 59 09/30/20 08:00 Nasal Cannula 5.0 09/30/20 08:00 98.0 60 39 104/48 (66) 92 09/30/20 08:00 5.0 09/30/20 08:00 60 09/30/20 07:30 60 41 103/47 (65) 93 09/30/20 07:00 60 39 109/51 (70) 90 09/30/20 06:30 60 39 106/54 (71) 94 09/30/20 06:00 60 39 110/45 (66) 98 09/30/20 05:30 60 36 114/53 (73) 100 09/30/20 05:00 60 36 131/49 (76) 100 09/30/20 04:30 60 34 133/84 (100) 99 09/30/20 04:00 5.0 09/30/20 04:00 60 09/30/20 04:00 Nasal Cannula 5.0 09/30/20 04:00 99.0 60 29 135/53 (80) 93 09/30/20 03:30 60 38 111/39 (63) 89 09/30/20 03:00 60 39 98/45 (62) 88 09/30/20 02:30 60 37 106/43 (64) 88 09/30/20 02:00 60 37 103/53 (70) 91 09/30/20 01:30 60 36 108/40 (62) 82 09/30/20 01:00 98.5 60 34 102/43 (62) 94 09/30/20 00:30 60 38 103/46 (65) 94 09/30/20 00:00 60 39 104/54 (71) 94 09/30/20 00:00 60 09/30/20 00:00 Nasal Cannula 5.0 09/30/20 00:00 5.0 09/29/20 23:30 61 32 103/54 (70) 97 09/29/20 23:00 60 35 106/51 (69) 97 09/29/20 22:30 60 30 106/55 (72) 98 09/29/20 22:00 60 38 108/51 (70) 91 09/29/20 21:30 60 32 107/53 (71) 93 09/29/20 21:00 60 34 103/51 (68) 97 09/29/20 20:30 61 36 101/51 (68) 89 09/29/20 20:00 60 09/29/20 20:00 5.0 09/29/20 20:00 Nasal Cannula 5.0 09/29/20 20:00 60 36 104/45 (64) 93 09/29/20 19:24 98 Nasal Cannula 5.0 40 09/29/20 19:15 60 31 92/46 (61) 96 09/29/20 19:00 61 34 107/39 (61) 94 09/29/20 19:00 64 33 102/40 (60) 95 09/29/20 18:45 61 32 97/43 (61) 99 09/29/20 18:30 62 33 108/47 (67) 97 09/29/20 18:16 Nasal Cannula 5.0 09/29/20 18:15 5.0 09/29/20 18:00 69 20 102/49 (66) 92 09/29/20 17:00 65 30 110/54 (72) 99 09/29/20 16:00 Mechanical Ventilator 09/29/20 16:00 69 09/29/20 16:00 40 09/29/20 16:00 98.7 67 30 116/53 (74) 99 12/30/20 15:30 69 26 114/52 (72) 98 09/29/20 15:10 68 25 40 09/29/20 15:00 69 31 110/56 (74) 98 09/29/20 14:30 70 29 101/51 (68) 98 09/29/20 14:21 114/65 09/29/20 14:00 69 29 95/52 (66) 99 09/29/20 13:30 72 27 100/46 (64) 98 09/29/20 13:00 66 28 102/51 (68) 99 09/29/20 12:30 73 25 105/51 (69) 99 09/29/20 12:00 Mechanical Ventilator 09/29/20 12:00 99.0 71 26 96/57 (70) 99 09/29/20 12:00 40 09/29/20 12:00 77 09/29/20 11:30 71 25 103/53 (70) 99 09/29/20 11:00 70 25 98/51 (67) 99 Status: obtunded Condition: critical HEENT: atraumatic Neck: full ROM Lungs: clear Heart: HR/BP stable Abdomen: soft Extremities: no C/C/E Critical Care - Subjective ROS Limited/Unobtainable: Yes Condition: critical EKG Rhythm: Sinus Rhythm FI02: 40 Vent Support Breath Rate: 16 Vent Support Mode: CPAP Vent Tidal Volume: 650 Sputum Amount: Moderate PEEP: 5.0 PIP: 15 Tube Feeding Amount: 45 I&O: Intake and Output 09/29/20 09/30/20 19:00 07:00 Intake Total 2530.0000 ml 1851.25 ml Output Total 1025 ml 510 ml Balance 1505.0000 ml 1341.25 ml Intake Free Water 60 ml 70 ml IV Total 1970.0000 ml 1241.25 ml Tube Feeding 500 ml 540 ml Output Urine Total 975 ml 510 ml Stool Total 50 ml # Bowel Movements 4 53 CXR: Worsening infiltrate on the left. Unchanged infiltrate on the right, since prior exam ET-Tube: 7.0 ET Position: 25 Labs: Laboratory Tests Test 09/30/20 04:30 White Blood Count 9.5 K/UL (4.8-10.8) # Red Blood Count 2.68 M/UL (4.70-6.10) L Hemoglobin 8.7 G/DL (14.2-18.0) L Hematocrit 27.3 % (42.0-52.0) L Mean Corpuscular Volume 102 FL (80-99) #H Mean Corpuscular Hemoglobin 32.6 PG (27.0-31.0) H Mean Corpuscular Hemoglobin Concent 32.0 G/DL (32.0-36.0) Red Cell Distribution Width 15.1 % (11.6-14.8) H Platelet Count 176 K/UL (150-450) Mean Platelet Volume 8.6 FL (6.5-10.1) Neutrophils (%) (Auto) 75.9 % (45.0-75.0) H Lymphocytes (%) (Auto) 4.4 % (20.0-45.0) L Monocytes (%) (Auto) 15.3 % (1.0-10.0) H Eosinophils (%) (Auto) 3.6 % (0.0-3.0) H Basophils (%) (Auto) 0.9 % (0.0-2.0) Erythrocyte Sedimentation Rate 106 MM/HR (0-20) H Sodium Level 136 MMOL/L (136-145) Potassium Level 5.0 MMOL/L (3.5-5.1) Chloride Level 109 MMOL/L (98-107) H Carbon Dioxide Level 19 MMOL/L (21-32) L Anion Gap 8 mmol/L (5-15) Blood Urea Nitrogen 40 mg/dL (7-18) H Creatinine 2.4 MG/DL (0.55-1.30) H Estimat Glomerular Filtration Rate 26.6 mL/min (>60) Glucose Level 115 MG/DL (74-106) H Calcium Level 7.3 MG/DL (8.5-10.1) L Phosphorus Level 5.2 MG/DL (2.5-4.9) H Magnesium Level 2.3 MG/DL (1.8-2.4) Total Bilirubin 0.6 MG/DL (0.2-1.0) Aspartate Amino Transf (AST/SGOT) 124 U/L (15-37) H Alanine Aminotransferase (ALT/SGPT) 64 U/L (12-78) Alkaline Phosphatase 165 U/L (46-116) H C-Reactive Protein, Quantitative 11.4 mg/dL (0.00-0.90) H Total Protein 6.1 G/DL (6.4-8.2) L Albumin 1.8 G/DL (3.4-5.0) L Globulin 4.3 g/dL Albumin/Globulin Ratio 0.4 (1.0-2.7) L Jaclyn Byrne MD Sep 30, 2020 10:33
--- NOTE | 2020-09-30 10:33 | NUR ---
NURSE NOTES: Per Dr. Byrne, no need of CT head at this time, order cancelled.
--- NOTE | 2020-09-30 10:39 | NUR ---
NURSE NOTES: per Dr. Byrne, call Dr. Bales for neuro. Order noted, entered, carried out.
--- NOTE | 2020-09-30 11:32 | Diagnostic Imaging Report ---
Indication: Shortness of breath Technique: One view of the chest Comparison: 09/29/2020 Findings: The endotracheal tube is no longer evident. Bilateral infiltrates are again demonstrated, perhaps slightly worse on the right as the right hemidiaphragm is no longer visible, stable on the left. There is a left chest pacemaker. Impression: Interim extubation Slight worsening of infiltrates on the right. Stable infiltrates on the left
--- NOTE | 2020-09-30 13:01 | NUR ---
Collet MakerManufacturing Supervisor SI: Respiratory Failure, T 98, HR 60, RR 39, BP 111/48, hgb 8.7, BUN 40, Creatinine 2.4, troponin 3.167 cxray Bilateral infiltrates O2 5L NC o2 sat 90% SI: Vancomycin IV Once Norepinepherine IV Mag Sulfate IV Cardarone TID NG Midodrine PO Lanoxin PO D5NS IV @ 100ml/hr ICU Status
--- NOTE | 2020-09-30 13:11 | NUR ---
NURSE NOTES: Dr. Crespo made aware patient AV paced HR 60, of Levophed since 729, per MD change amiodarone 400mg TID to Daily. Order noted, entered, carried out. Will continue to monitor.
[2020-09-30] MEDS: Norepinephrine 4mg/NS Premix 250 ML IV SCH (14:05)
--- NOTE | 2020-09-30 14:05 | NUR ---
NURSE NOTES: Levophed IV scheduled for 1400 not administered due to parameter out of range, patient off Levophed since 729 , SBP >90, Dr. Crespo made aware, no new order received at this time, will continue to monitor.
[2020-09-30] MEDS: Midodrine 10mg tab ORAL SCH ×2 (14:10→21:51)
--- NOTE | 2020-09-30 14:35 | Surgery Progress Note ---
Surgery Progress Note Subjective Additional Comments dnr/dni, on support hgb 8.7, BUN 40, Creatinine 2.4, troponin 3.167 cxray Bilateral infiltrates O2 5L NC o2 sat 90% Objective Last 24 Hour Vital Signs Date Time Temp Pulse Resp B/P (MAP) Pulse Ox O2 Delivery O2 Flow Rate FiO2 09/30/20 14:05 103/46 09/30/20 14:00 60 39 106/44 (64) 90 09/30/20 13:00 60 42 103/46 (65) 95 09/30/20 12:00 60 09/30/20 12:00 60 39 111/48 (69) 90 09/30/20 12:00 Nasal Cannula 5.0 09/30/20 12:00 5.0 09/30/20 11:00 60 42 108/50 (69) 92 09/30/20 10:00 60 41 106/48 (67) 93 09/30/20 09:00 60 37 101/45 (63) 93 09/30/20 08:09 59 09/30/20 08:00 Nasal Cannula 5.0 09/30/20 08:00 98.0 60 39 104/48 (66) 92 09/30/20 08:00 5.0 09/30/20 08:00 60 09/30/20 07:30 60 41 103/47 (65) 93 09/30/20 07:00 60 39 109/51 (70) 90 09/30/20 06:30 60 39 106/54 (71) 94 09/30/20 06:00 60 39 110/45 (66) 98 09/30/20 05:30 60 36 114/53 (73) 100 09/30/20 05:00 60 36 131/49 (76) 100 09/30/20 04:30 60 34 133/84 (100) 99 09/30/20 04:00 5.0 09/30/20 04:00 60 09/30/20 04:00 Nasal Cannula 5.0 09/30/20 04:00 99.0 60 29 135/53 (80) 93 09/30/20 03:30 60 38 111/39 (63) 89 09/30/20 03:00 60 39 98/45 (62) 88 09/30/20 02:30 60 37 106/43 (64) 88 09/30/20 02:00 60 37 103/53 (70) 91 09/30/20 01:30 60 36 108/40 (62) 82 09/30/20 01:00 98.5 60 34 102/43 (62) 94 09/30/20 00:30 60 38 103/46 (65) 94 09/30/20 00:00 60 39 104/54 (71) 94 09/30/20 00:00 60 09/30/20 00:00 Nasal Cannula 5.0 09/30/20 00:00 5.0 09/29/20 23:30 61 32 103/54 (70) 97 09/29/20 23:00 60 35 106/51 (69) 97 09/29/20 22:30 60 30 106/55 (72) 98 09/29/20 22:00 60 38 108/51 (70) 91 09/29/20 21:30 60 32 107/53 (71) 93 09/29/20 21:00 60 34 103/51 (68) 97 09/29/20 20:30 61 36 101/51 (68) 89 09/29/20 20:00 60 09/29/20 20:00 5.0 09/29/20 20:00 Nasal Cannula 5.0 09/29/20 20:00 60 36 104/45 (64) 93 09/29/20 19:24 98 Nasal Cannula 5.0 40 09/29/20 19:15 60 31 92/46 (61) 96 09/29/20 19:00 61 34 107/39 (61) 94 09/29/20 19:00 64 33 102/40 (60) 95 09/29/20 18:45 61 32 97/43 (61) 99 09/29/20 18:30 62 33 108/47 (67) 97 09/29/20 18:16 Nasal Cannula 5.0 09/29/20 18:15 5.0 09/29/20 18:00 69 20 102/49 (66) 92 09/29/20 17:00 65 30 110/54 (72) 99 09/29/20 16:00 Mechanical Ventilator 09/29/20 16:00 69 09/29/20 16:00 40 09/29/20 16:00 98.7 67 30 116/53 (74) 99 09/29/20 15:30 69 26 114/52 (72) 98 09/29/20 15:10 68 25 40 09/29/20 15:00 69 31 110/56 (74) 98 I&O Intake and Output 09/29/20 09/30/20 19:00 07:00 Intake Total 2530.0000 ml 1851.25 ml Output Total 1025 ml 510 ml Balance 1505.0000 ml 1341.25 ml Intake Free Water 60 ml 70 ml IV Total 1970.0000 ml 1241.25 ml Tube Feeding 500 ml 540 ml Output Urine Total 975 ml 510 ml Stool Total 50 ml # Bowel Movements 4 53 Dressing: saturated Cardiovascular: RSR Respiratory: decreased breath sounds Abdomen: soft, non-tender, present bowel sounds Extremities: no tenderness, no cyanosis Laboratory Tests Test 09/30/20 04:30 White Blood Count 9.5 K/UL (4.8-10.8) # Red Blood Count 2.68 M/UL (4.70-6.10) L Hemoglobin 8.7 G/DL (14.2-18.0) L Hematocrit 27.3 % (42.0-52.0) L Mean Corpuscular Volume 102 FL (80-99) #H Mean Corpuscular Hemoglobin 32.6 PG (27.0-31.0) H Mean Corpuscular Hemoglobin Concent 32.0 G/DL (32.0-36.0) Red Cell Distribution Width 15.1 % (11.6-14.8) H Platelet Count 176 K/UL (150-450) Mean Platelet Volume 8.6 FL (6.5-10.1) Neutrophils (%) (Auto) 75.9 % (45.0-75.0) H Lymphocytes (%) (Auto) 4.4 % (20.0-45.0) L Monocytes (%) (Auto) 15.3 % (1.0-10.0) H Eosinophils (%) (Auto) 3.6 % (0.0-3.0) H Basophils (%) (Auto) 0.9 % (0.0-2.0) Erythrocyte Sedimentation Rate 106 MM/HR (0-20) H Sodium Level 136 MMOL/L (136-145) Potassium Level 5.0 MMOL/L (3.5-5.1) Chloride Level 109 MMOL/L (98-107) H Carbon Dioxide Level 19 MMOL/L (21-32) L Anion Gap 8 mmol/L (5-15) Blood Urea Nitrogen 40 mg/dL (7-18) H Creatinine 2.4 MG/DL (0.55-1.30) H Estimat Glomerular Filtration Rate 26.6 mL/min (>60) Glucose Level 115 MG/DL (74-106) H Calcium Level 7.3 MG/DL (8.5-10.1) L Phosphorus Level 5.2 MG/DL (2.5-4.9) H Magnesium Level 2.3 MG/DL (1.8-2.4) Total Bilirubin 0.6 MG/DL (0.2-1.0) Aspartate Amino Transf (AST/SGOT) 124 U/L (15-37) H Alanine Aminotransferase (ALT/SGPT) 64 U/L (12-78) Alkaline Phosphatase 165 U/L (46-116) H C-Reactive Protein, Quantitative 11.4 mg/dL (0.00-0.90) H Total Protein 6.1 G/DL (6.4-8.2) L Albumin 1.8 G/DL (3.4-5.0) L Globulin 4.3 g/dL Albumin/Globulin Ratio 0.4 (1.0-2.7) L Plan Problems: (1) Septic shock Assessment & Plan: anemia lactic acidosis elevated t bili / d bili imaging reviewed ill appearing weaning pressors as tolerated local care provided will follow with recs thank you Pt presented on admission with multiple Pressure Injuries.Cat 3 Skin Tear pily L chest. Base of wound is moist ,viable with 100% flap loss.No exudate noted. Cat 2 Skin Tear ventral L forearm. 20% skin flap loss,80% flap in-situ. Cat 2 Skin tear dorsal L forearm with 10% flap loss,90% skin flap in situ. Sacral DTPI(L)12cm x (W)17.5cm. Base of Pressure injury maroon with scattered Purpuric areas within base of injury. Surrounding non-blanchable erythema without induration. Perianal area is erythematous. Partial Thickness Pressure injury at head of penis. Base of wound is moist and viable. Both R and L Heels are Boggy with Non-blanchable erythema. Tx.Plan: Apply Optifoam drsgs to L chest, L forearm. Change every 7 days and prn. Apply Moisture Barrier Past to sacrum. Cover with Optifoam drsg. Change every 3 days and prn. Apply Moisture Barrier Paste to penis and Perianal areas with each incontinence care. Apply Cavilon Skin Barrier to both heels. Cover each heel with Optifoam drsg. Change every 7 days and prn. Reposition at least every 2hours or as tolerated. Off-load heels with Pillow. APM/JARED Mattress. DAILY ESTIMATED NEEDS: Needs based on Critical care, wound, ARF/ 77kg abw 22-28 kcals/kg 5724-7203 total kcals 0.8-1.25 (increase w/ renal improvement) g protein/kg 61-96 g total protein 20-25 mL/kg 4000-7599 total fluid mLs NUTRITION DIAGNOSIS: Swallowing difficulty r/t respiratory failure as evidenced by orally intubated upon adm, now s/p code blue (09/22), on pressor support. CURRENT TF:npo PO DIET RECOMMENDATIONS: COUTURE DRESSMAKER eval post extubation ENTERAL NUTRITION RECOMMENDATIONS: Glucerna 1.2 @ 60ml/hr x 24 hrs to provide 1440ml, 1728kcal, 86g prot, 1159ml free water * WITH HEMODYNAMIC STABILITY -> Initiate Glucerna 1.2 @ 20ml/hrs x 6 hrs, advance 10ml q 4-6 hrs as t olerated to goal -> Flush per MD. HOB over 30 degrees -> Monitor renal fxn and lytes, need for renal TF of Nepro Without hemodynamic stability: rec trophic feeding of Glucerna 1.2 @ 10- 15ml/hr x 24 hrs ADDITIONAL RECOMMENDATIONS: * Calibrated bedscale wt * Monitor hemodynamic stability, ability to feed * Monitor renal fxn and lytes, need for renal TF formula (creat wnl last adm -> 5.2 at this time, K wnl, phos and mag low) * NISS w/ TF * Wound healing: f/up w/ WC eval, add Omar BID w/ TF (2) Multiorgan failure (3) Rapid atrial fibrillation (4) Compression fracture of L3 vertebra (5) Social isolation (6) Impaired mobility and ADLs (7) UTI (urinary tract infection) (8) Suicidal ideations (9) HTN (hypertension) (10) Failure to thrive in adult (11) Renal failure (ARF), acute on chronic (12) ANGI (acute kidney injury) (13) BPH (benign prostatic hyperplasia) (14) Schizoaffective disorder (15) Sick sinus syndrome (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 There is retrocardiac consolidation which is increased. Left upper lung, right lung and pleural space are clear. There is a left chest bifocal pacemaker. Stable satisfactory positions of endotracheal and orogastric tubes. Impression: Increased left pleural effusion and retrocardiac consolidation. Eber Slater Sep 30, 2020 14:35
--- NOTE | 2020-09-30 17:21 | NUR ---
NURSE NOTES: Patient desat on 5L Keven BRAUN RT called, non-rebreather mask Fio2 100%, O2 sat 92% at this time, Tachypnea RR 34. Patient DNR/DNI.
--- NOTE | 2020-09-30 18:26 | NUR ---
TRANSFER TO FLOOR: Patient transferred to Replaced By [facility]-, per Dr. Byrne. Report given to Teri Krishna RN. No Belongings and medications given to Teri krishna RN. No Family enlisted and or S/O informed of transfer.
--- NOTE | 2020-09-30 18:30 | NUR ---
NURSE NOTES: Received patient from ICU. Pt a/o x 0, non verbal. Pt wear 15L/min non rebreather mask. D51/4NS is running via Rt femoral triple lumen cath is patent. Glucerna is running @45ml/hr via OG tube. SCD is on. Received report from Angi Williamson RN. Sacral wound picture was taken. Bed in lowest position, call light within reach. Will continue to monitor.
--- NOTE | 2020-09-30 19:24 | NUR ---
NURSE HAND-OFF: Important Events on Shift:Transfer from ICU Patient Status: stable Diet: Glucerna @45ml/hr via OG tube Pending Orders: n/a Pending Results/Labs:n/a Pending MD notification:n/a Latest Vital Signs: Temperature 98.0 , Pulse 60 , B/P 99 /50 , Respiratory Rate 35 , O2 SAT 95 , Mechanical Ventilator, O2 Flow Rate 15.0 . Vital Sign Comment: stable Latest Robertson Fall Score: 75 Fall Risk: High Risk Safety Measures: Call light Within Reach, Bed Alarm Zone 1, Side Rails Side Rails x2, Bed position Low and Locked. Fall Precautions: Yellow Socks Yellow Gown Door Sign Patient Fall Education Report given to KRYSTYNA Garcia.
--- NOTE | 2020-09-30 19:36 | Cardiac Electrophysiology PN ---
Assessment/Plan Assessment/Plan 1. Atrial fib with RVR and Episode of pulseless electrical activity after ventricular tachycardia. On Amio 400 po tid, Dig 0.125 po daily. Dig level is 1.0. Change Amio to 400 po daily 2. NSTEMI could be due to renal failure as well as septic shock. 3. Septic and hypovolemic shock. On iv fluid and Abx. On Midodrine 10 tid 4. S/P Respiratory failure, extubated 5. Severe azotemia with sodium of 170 and very high BUN and creatinine. Cr down to 3.1 The patient is on D5 and quarter-normal saline per Dr. Mata. DW RN Subjective Subjective In ICU extubated yesterdy and off Levo and on Midodrine 10 tid. HR 90s in atrial fib. On Amiodarone 400 po bid Objective Last 24 Hour Vital Signs Date Time Temp Pulse Resp B/P (MAP) Pulse Ox O2 Delivery O2 Flow Rate FiO2 09/30/20 18:00 60 35 99/50 (66) 95 09/30/20 17:20 15.0 100 09/30/20 17:00 60 38 104/52 (69) 87 09/30/20 16:00 Nasal Cannula 5.0 09/30/20 16:00 60 09/30/20 16:00 60 40 103/52 (69) 92 09/30/20 15:00 5.0 09/30/20 15:00 60 39 105/50 (68) 92 09/30/20 14:05 103/46 09/30/20 14:00 60 39 106/44 (64) 90 09/30/20 13:00 60 42 103/46 (65) 95 09/30/20 12:00 60 09/30/20 12:00 60 39 111/48 (69) 90 09/30/20 12:00 Nasal Cannula 5.0 09/30/20 12:00 5.0 09/30/20 11:00 60 42 108/50 (69) 92 09/30/20 10:00 60 41 106/48 (67) 93 09/30/20 09:00 60 37 101/45 (63) 93 09/30/20 08:09 59 09/30/20 08:00 Nasal Cannula 5.0 09/30/20 08:00 98.0 60 39 104/48 (66) 92 09/30/20 08:00 5.0 09/30/20 08:00 60 09/30/20 07:30 60 41 103/47 (65) 93 09/30/20 07:00 60 39 109/51 (70) 90 09/30/20 06:30 60 39 106/54 (71) 94 09/30/20 06:00 60 39 110/45 (66) 98 09/30/20 05:30 60 36 114/53 (73) 100 09/30/20 05:00 60 36 131/49 (76) 100 09/30/20 04:30 60 34 133/84 (100) 99 09/30/20 04:00 5.0 09/30/20 04:00 60 09/30/20 04:00 Nasal Cannula 5.0 09/30/20 04:00 99.0 60 29 135/53 (80) 93 09/30/20 03:30 60 38 111/39 (63) 89 09/30/20 03:00 60 39 98/45 (62) 88 09/30/20 02:30 60 37 106/43 (64) 88 09/30/20 02:00 60 37 103/53 (70) 91 09/30/20 01:30 60 36 108/40 (62) 82 09/30/20 01:00 98.5 60 34 102/43 (62) 94 09/30/20 00:30 60 38 103/46 (65) 94 09/30/20 00:00 60 39 104/54 (71) 94 09/30/20 00:00 60 09/30/20 00:00 Nasal Cannula 5.0 09/30/20 00:00 5.0 09/29/20 23:30 61 32 103/54 (70) 97 09/29/20 23:00 60 35 106/51 (69) 97 09/29/20 22:30 60 30 106/55 (72) 98 09/29/20 22:00 60 38 108/51 (70) 91 09/29/20 21:30 60 32 107/53 (71) 93 09/29/20 21:00 60 34 103/51 (68) 97 09/29/20 20:30 61 36 101/51 (68) 89 09/29/20 20:00 60 09/29/20 20:00 5.0 09/29/20 20:00 Nasal Cannula 5.0 09/29/20 20:00 60 36 104/45 (64) 93 Intake and Output 09/29/20 09/30/20 19:00 07:00 Intake Total 2530.0000 ml 1851.25 ml Output Total 1025 ml 510 ml Balance 1505.0000 ml 1341.25 ml Intake Free Water 60 ml 70 ml IV Total 1970.0000 ml 1241.25 ml Tube Feeding 500 ml 540 ml Output Urine Total 975 ml 510 ml Stool Total 50 ml # Bowel Movements 4 53 Laboratory Tests Test 09/30/20 04:30 White Blood Count 9.5 K/UL (4.8-10.8) # Red Blood Count 2.68 M/UL (4.70-6.10) L Hemoglobin 8.7 G/DL (14.2-18.0) L Hematocrit 27.3 % (42.0-52.0) L Mean Corpuscular Volume 102 FL (80-99) #H Mean Corpuscular Hemoglobin 32.6 PG (27.0-31.0) H Mean Corpuscular Hemoglobin Concent 32.0 G/DL (32.0-36.0) Red Cell Distribution Width 15.1 % (11.6-14.8) H Platelet Count 176 K/UL (150-450) Mean Platelet Volume 8.6 FL (6.5-10.1) Neutrophils (%) (Auto) 75.9 % (45.0-75.0) H Lymphocytes (%) (Auto) 4.4 % (20.0-45.0) L Monocytes (%) (Auto) 15.3 % (1.0-10.0) H Eosinophils (%) (Auto) 3.6 % (0.0-3.0) H Basophils (%) (Auto) 0.9 % (0.0-2.0) Erythrocyte Sedimentation Rate 106 MM/HR (0-20) H Sodium Level 136 MMOL/L (136-145) Potassium Level 5.0 MMOL/L (3.5-5.1) Chloride Level 109 MMOL/L (98-107) H Carbon Dioxide Level 19 MMOL/L (21-32) L Anion Gap 8 mmol/L (5-15) Blood Urea Nitrogen 40 mg/dL (7-18) H Creatinine 2.4 MG/DL (0.55-1.30) H Estimat Glomerular Filtration Rate 26.6 mL/min (>60) Glucose Level 115 MG/DL (74-106) H Calcium Level 7.3 MG/DL (8.5-10.1) L Phosphorus Level 5.2 MG/DL (2.5-4.9) H Magnesium Level 2.3 MG/DL (1.8-2.4) Total Bilirubin 0.6 MG/DL (0.2-1.0) Aspartate Amino Transf (AST/SGOT) 124 U/L (15-37) H Alanine Aminotransferase (ALT/SGPT) 64 U/L (12-78) Alkaline Phosphatase 165 U/L (46-116) H C-Reactive Protein, Quantitative 11.4 mg/dL (0.00-0.90) H Total Protein 6.1 G/DL (6.4-8.2) L Albumin 1.8 G/DL (3.4-5.0) L Globulin 4.3 g/dL Albumin/Globulin Ratio 0.4 (1.0-2.7) L Objective HEAD AND NECK: No JVD LUNGS: Coarse rhonchi. CARDIOVASCULAR: Irregular irregular and tachycardic S1 and S2 with no gallop. ABDOMEN: Soft. EXTREMITIES: No pitting edema. Carlos Eduardo Crespo MD Sep 30, 2020 19:36
--- NOTE | 2020-09-30 19:41 | Internal Med Progress Note ---
Subjective Date of Service: Sep 30, 2020 Physician Name MeshaShai Attending Physician Andrés Rothman MD Current Medications Medications (Trade) Dose Ordered Sig/Fabrizio Route PRN Reason Start Time Stop Time Status Last Admin Dose Admin Acetaminophen (Tylenol) 650 mg Q4H PRN NG Mild Pain (Pain Scale 1-3) 09/23/20 13:30 10/23/20 13:29 09/23/20 13:42 Acetaminophen (Tylenol) 650 mg Q4H PRN NG Temp >100.5 09/23/20 13:30 10/23/20 13:29 09/26/20 08:04 Amiodarone HCl (Cordarone) 400 mg DAILY NG 10/01/20 09:00 12/24/20 21:14 Chlorhexidine Gluconate (Jennifer-Hex 2%) 1 applic DAILY@2000 TOPIC 09/22/20 20:00 12/21/20 19:59 09/29/20 20:46 Dextrose/Sodium Chloride 1,000 ml @ 100 mls/hr Q10H IV 09/22/20 11:00 10/22/20 10:59 09/30/20 17:27 Digoxin (Lanoxin) 0.125 mg DAILY ORAL 09/24/20 09:00 12/23/20 08:59 09/29/20 08:14 Haloperidol Lactate (Haldol) 5 mg Q6H PRN IM Agitation 09/21/20 23:45 11/05/20 23:44 Heparin Sodium (Porcine) (Heparin 5000 units/ml) 5,000 units EVERY 12 HOURS SUBQ 09/22/20 09:00 11/06/20 08:59 09/30/20 08:14 Midodrine (Pro-Amatine) 10 mg Q8HR ORAL 09/26/20 14:30 12/25/20 14:29 09/30/20 14:10 Ondansetron HCl (Zofran) 4 mg Q6H PRN IVP Nausea & Vomiting 09/21/20 23:45 10/21/20 23:44 Pantoprazole (Protonix) 40 mg Q12HR IVP 09/22/20 21:00 10/22/20 08:59 09/30/20 08:11 Polyethylene Glycol (Miralax) 17 gm DAILYPRN PRN ORAL Constipation 09/21/20 23:45 10/21/20 23:44 Vancomycin HCl ([facility] pharmacy to dose) 1 ea DAILY PRN MISC PER RX PROTOCOL 09/22/20 07:45 10/22/20 07:44 Allergies: Coded Allergies: No Known Allergies (Unverified , 07/22/20) ROS Limited/Unobtainable: Yes Subjective 75 YO M admitted with shortness of breath. Now respiratory failure. Extubated 09/29/20. Cover for Int Med-Dr oRthman. Back on non rebreather mask Objective Last Vital Signs Date Time Temp Pulse Resp B/P (MAP) Pulse Ox O2 Delivery O2 Flow Rate FiO2 09/30/20 18:00 60 35 99/50 (66) 95 09/30/20 17:20 15.0 100 09/30/20 16:00 Nasal Cannula 09/30/20 08:00 98.0 Laboratory Tests Test 09/30/20 04:30 White Blood Count 9.5 K/UL (4.8-10.8) # Red Blood Count 2.68 M/UL (4.70-6.10) L Hemoglobin 8.7 G/DL (14.2-18.0) L Hematocrit 27.3 % (42.0-52.0) L Mean Corpuscular Volume 102 FL (80-99) #H Mean Corpuscular Hemoglobin 32.6 PG (27.0-31.0) H Mean Corpuscular Hemoglobin Concent 32.0 G/DL (32.0-36.0) Red Cell Distribution Width 15.1 % (11.6-14.8) H Platelet Count 176 K/UL (150-450) Mean Platelet Volume 8.6 FL (6.5-10.1) Neutrophils (%) (Auto) 75.9 % (45.0-75.0) H Lymphocytes (%) (Auto) 4.4 % (20.0-45.0) L Monocytes (%) (Auto) 15.3 % (1.0-10.0) H Eosinophils (%) (Auto) 3.6 % (0.0-3.0) H Basophils (%) (Auto) 0.9 % (0.0-2.0) Erythrocyte Sedimentation Rate 106 MM/HR (0-20) H Sodium Level 136 MMOL/L (136-145) Potassium Level 5.0 MMOL/L (3.5-5.1) Chloride Level 109 MMOL/L (98-107) H Carbon Dioxide Level 19 MMOL/L (21-32) L Anion Gap 8 mmol/L (5-15) Blood Urea Nitrogen 40 mg/dL (7-18) H Creatinine 2.4 MG/DL (0.55-1.30) H Estimat Glomerular Filtration Rate 26.6 mL/min (>60) Glucose Level 115 MG/DL (74-106) H Calcium Level 7.3 MG/DL (8.5-10.1) L Phosphorus Level 5.2 MG/DL (2.5-4.9) H Magnesium Level 2.3 MG/DL (1.8-2.4) Total Bilirubin 0.6 MG/DL (0.2-1.0) Aspartate Amino Transf (AST/SGOT) 124 U/L (15-37) H Alanine Aminotransferase (ALT/SGPT) 64 U/L (12-78) Alkaline Phosphatase 165 U/L (46-116) H C-Reactive Protein, Quantitative 11.4 mg/dL (0.00-0.90) H Total Protein 6.1 G/DL (6.4-8.2) L Albumin 1.8 G/DL (3.4-5.0) L Globulin 4.3 g/dL Albumin/Globulin Ratio 0.4 (1.0-2.7) L Intake and Output 09/29/20 09/30/20 19:00 07:00 Intake Total 2530.0000 ml 1851.25 ml Output Total 1025 ml 510 ml Balance 1505.0000 ml 1341.25 ml Intake Free Water 60 ml 70 ml IV Total 1970.0000 ml 1241.25 ml Tube Feeding 500 ml 540 ml Output Urine Total 975 ml 510 ml Stool Total 50 ml # Bowel Movements 4 53 Objective Objective General: remain on ventilation, unresponsive, cannot follow commands. HEENT: NCAT, sclera anicteric, PERRL, ET Tube, OG Tube. Neck: Supple, no significant jugular venous distention, Lungs: Non rebreather mask; coarse breath sounds, decreased air at the bases, no wheezes. Heart: S1, S2, regular rate, tachycardia,, normal S1/S2, no murmurs, pacemaker at left side chest wall. Abdomen: soft, nontender, nondistended. Normoactive bowel sounds. : Whiting catheter. Extremities: No Cyanosis , clubbing or edema. Neuro: limited secondary to patient's status, unable to follow commands. Assessment/Plan Assessment/Plan Assessment/Plan Assessment/Plan ASSESSMENT: This is a 75-year-old white male with: 1. Pneumonia. 2. Acute hypoxemic Respiratory failure. 3. Septic shock. 4. Non-ST elevated myocardial infarction. 5. Hypertension. 6. Benign prostatic hypertrophy. 7. Alzheimer's dementia. 8. Depression. 9. status post cardiopulmonary arrest / PEA arrest (09/22/2020) 10. Atrial fibrillation with rapid ventricular rate. 11. Acute renal failure on chronic renal insufficiency. 12. hypernatremia. 13. Multiorgan failure. 14. Acute E. coli UTI. 15. MRSA sepsis/bacteremia. 16. NSTEMI 17. sick sinus syndrome status post a pacemaker on 08/27/2020. 18. Ventricular tachycardia. TREATMENT: 1. Pneumonia. Abx: meropenem and vancomycin. An Infectious Disease consultation has been obtained with Dr. Aviles. Follow recommendations of Infectious Disease. A Pulmonary consultation has been obtained with Dr. Jaclyn Byrne. 2. Septic shock. The patient is currently on vasopressin. 3. Non-ST elevated myocardial infarction. A Cardiology consultation has been obtained with Dr. Carlos Eduardo Crespo. Follow recommendations of Cardiology. 4. Hypertension. The patient is currently hypotensive. Hold antihypertensive medication. 5. Benign prostatic hypertrophy. Continue Flomax as above. 6. Alzheimer's dementia. 7. History of schizophrenia/depression. 8. Pacemaker in situ. tolerated tube feeding at 45 cc/hr. on Amiodarone 400 mg 3 times a day Pressors: resume Levophed Drip CODE STATUS: DNR DVT prophylaxis: heparin subcu. Shai Zimmer MD Sep 30, 2020 19:41
--- NOTE | 2020-09-30 20:20 | NUR ---
NURSE NOTES: Patient in bed, nonverbal , unable to make needs known. Skin is warm to touch, noted with sacral dti, noted with optifoam, intact. Bed in low and locked position. On non rebreather 15 L. Oral tube noted, feeding noted. Whiting noted, draining. Bed in low and locked position, provided safe environment. Triple lumen catheter noted, iv infusing as ordered. Call light is at bedside. Will continue plan of care.
[2020-09-30] MEDS: Dyna-Hex 2% Top Sol 2oz TOPIC SCH (21:50)
[2020-10-01] VITALS: BP 109/50
[2020-10-01 04:00] VITALS: BP 104/62
[2020-10-01] MEDS: D5 1/4NS 1000ml 1,000 ML IV SCH (04:00)
[2020-10-01] MEDS ORDERED: D5 1/4NS 1000ml 1,000 ML IV ONE (04:07)
[2020-10-01] MEDS: Midodrine 10mg tab ORAL SCH ×2 (06:29→14:28)
[2020-10-01 07:18] LABS: BASOPHILS % (AUTO) 1.3 % (0.0-2.0); HEMATOCRIT 26.6 % (42.0-52.0); HEMOGLOBIN 8.1 G/DL (14.2-18.0); LYMPHOCYTES % (AUTO) 6.6 % (20.0-45.0); MEAN CORPUSCULAR VOLUME 105 FL (80-99); MONOCYTES % (AUTO) 17.8 % (1.0-10.0); NEUTROPHILS % (AUTO) 73.4 % (45.0-75.0); PLATELET COUNT 190 K/UL (150-450); RED BLOOD COUNT 2.54 M/UL (4.70-6.10); RED CELL DISTRIBUTION WIDTH 15.8 % (11.6-14.8); WHITE BLOOD COUNT 12.4 K/UL (4.8-10.8)
--- NOTE | 2020-10-01 07:18 | NUR ---
NURSE HAND-OFF: Important Events on Shift:WNl Patient Status: Diet: Pending Orders: Pending Results/Labs: Pending MD notification: Latest Vital Signs: Temperature 97.5 , Pulse 102 , B/P 104 /62 , Respiratory Rate 36 , O2 SAT 100 , Mechanical Ventilator, O2 Flow Rate 5.0 . Vital Sign Comment: Latest Robertson Fall Score: 75 Fall Risk: High Risk Safety Measures: Call light Within Reach, Bed Alarm Zone 1, Side Rails Side Rails x2, Bed position Low and Locked. Fall Precautions: Yellow Socks Yellow Gown Door Sign Patient Fall Education Report given to .
[2020-10-01 08:00] VITALS: BP 106/50
[2020-10-01 08:01] LABS: PHOSPHORUS 7.9 MG/DL (2.5-4.9)
--- NOTE | 2020-10-01 08:12 | NUR ---
NURSE NOTES: Patient non verbal; on Non-rebreather mask 15 Liters; Oral Tube Glucerna 1.2 running 45cc; Whiting in place, drains well; side rails up x2, breaks engaged, bed at lowest position; call light within reach; will keep monitoring.
[2020-10-01 08:51] LABS: ALANINE AMINOTRANSFERASE 52 U/L (12-78); ALBUMIN 1.8 G/DL (3.4-5.0); ALBUMIN/GLOBULIN RATIO 0.4 (1.0-2.7); ALKALINE PHOSPHATASE 159 U/L (46-116); ASPARTATE AMINO TRANSFERASE 62 U/L (15-37); BILIRUBIN,TOTAL 0.5 MG/DL (0.2-1.0); BLOOD UREA NITROGEN 47 mg/dL (7-18); CALCIUM 7.3 MG/DL (8.5-10.1); CARBON DIOXIDE 20 MMOL/L (21-32)
[2020-10-01] MEDS: Pantoprazole Inj IVP SCH (08:58)
[2020-10-01 08:59] LABS: CHLORIDE 105 MMOL/L (98-107); POTASSIUM 5.9 MMOL/L (3.5-5.1); SODIUM 133 MMOL/L (136-145)
[2020-10-01] MEDS: Digoxin 0.125mg tab ORAL SCH (08:59)
[2020-10-01] MEDS: Heparin 5000 units/ml inj SUBQ SCH (09:00)
[2020-10-01] MEDS ORDERED: Amiodarone 200mg tab NG SCH (09:00)
--- NOTE | 2020-10-01 09:10 | Infectious Diseases Prog Note ---
Assessment/Plan 75yo M with: Septic shock MRSA bacteremia CODE BLUE 09/21, s/p ROSC Pneumonia, c/f aspiration Hypoxic resp failure s/p intubation 09/21 R/o UTI Hypotension on pressors ANGI, Cr in 5s Elevated AST to 100s Febrile Normal WBC Lymphopenia 09/21 BCx +MRSA UA+ UCx E.coli S-CTX Resp cx +MSSA COVID rapid neg, PCR NEG CT chest: 1. Almost complete opacification of the left mainstem bronchus, segmental and subsegmental bronchi with presumed debris. Tree-in-bud nodularity along with patchy airspace consolidations are identified in the bilateral lower lobes, left greater than right. Constellation of findings are suspicious for aspiration pneumonia. 2. Left lower lobe and lingular subsegmental atelectasis. 3. 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 TTE: No vegetations 09/23 BCx NTD 09/25 BCx NTD 09/29 CXR: Worsening infiltrate on the left. Unchanged infiltrate on the right, since prior exam 09/30 CXR: Slight worsening of infiltrates on the right. Stable infiltrates on the left HyperNa to 170 on admission ANGI on CKD, Cr in 5s, worsening SNF resident Dementia Plan: Cont vanco IV #/ for MRSA bacteremia, empiric for endocarditis given inability to r/o w/ CHANDLER If transitions to comfort care, would stop abx CXR Trend WBC Recommend CHANDLER given presenting sepsis w/ MRSA bacteremia of unclear source (resp cx has MSSA) - per d/w RN, not candidate given DNR/DNI and considering comfort care 09/29 SP mis #7 empiric given arrest 09/22 SP amikacin x1 09/21 SP Zosyn in ED Monitor CBC/CMP Monitor temp curve, hemodynamics Monitor resp status D/w RN Thank you for this consult. [facility] will continue to follow. Subjective Allergies: Coded Allergies: No Known Allergies (Unverified , 07/22/20) AF On NRB mask, now on floor, increased WOB WBC slightly up to 12 Objective Last 24 Hour Vital Signs Date Time Temp Pulse Resp B/P (MAP) Pulse Ox O2 Delivery O2 Flow Rate FiO2 10/01/20 08:59 101 10/01/20 04:00 97.5 102 36 104/62 (76) 100 10/01/20 00:00 97.6 97 36 109/50 (69) 96 09/30/20 21:00 Non-Rebreather 15.0 09/30/20 20:10 96 Nasal Cannula 4.0 36 09/30/20 20:00 97.6 61 37 104/48 (66) 96 09/30/20 18:00 60 35 99/50 (66) 95 09/30/20 17:20 15.0 100 09/30/20 17:00 60 38 104/52 (69) 87 09/30/20 16:00 Nasal Cannula 5.0 09/30/20 16:00 60 09/30/20 16:00 60 40 103/52 (69) 92 09/30/20 15:00 5.0 09/30/20 15:00 60 39 105/50 (68) 92 09/30/20 14:05 103/46 09/30/20 14:00 60 39 106/44 (64) 90 09/30/20 13:00 60 42 103/46 (65) 95 09/30/20 12:00 60 09/30/20 12:00 60 39 111/48 (69) 90 09/30/20 12:00 Nasal Cannula 5.0 09/30/20 12:00 5.0 09/30/20 11:00 60 42 108/50 (69) 92 09/30/20 10:00 60 41 106/48 (67) 93 Height (Feet): 5 Height (Inches): 9.00 Weight (Pounds): 190 Gen: NAD HEENT: NCAT Pulm: BL chest rise Abd: Non-distended Ext: No c/c/e Skin: No visible rashes Neuro: Awake Laboratory Tests Test 10/01/20 05:40 White Blood Count 12.4 K/UL (4.8-10.8) H Red Blood Count 2.54 M/UL (4.70-6.10) L Hemoglobin 8.1 G/DL (14.2-18.0) L Hematocrit 26.6 % (42.0-52.0) L Mean Corpuscular Volume 105 FL (80-99) H Mean Corpuscular Hemoglobin 31.8 PG (27.0-31.0) H Mean Corpuscular Hemoglobin Concent 30.4 G/DL (32.0-36.0) L Red Cell Distribution Width 15.8 % (11.6-14.8) H Platelet Count 190 K/UL (150-450) Mean Platelet Volume 8.6 FL (6.5-10.1) Neutrophils (%) (Auto) 73.4 % (45.0-75.0) Lymphocytes (%) (Auto) 6.6 % (20.0-45.0) L Monocytes (%) (Auto) 17.8 % (1.0-10.0) H Eosinophils (%) (Auto) 1.0 % (0.0-3.0) Basophils (%) (Auto) 1.3 % (0.0-2.0) Sodium Level 133 MMOL/L (136-145) L Potassium Level 5.9 MMOL/L (3.5-5.1) H Chloride Level 105 MMOL/L (98-107) Carbon Dioxide Level 20 MMOL/L (21-32) L Blood Urea Nitrogen 47 mg/dL (7-18) H Creatinine 3.0 MG/DL (0.55-1.30) H Estimat Glomerular Filtration Rate 20.6 mL/min (>60) Glucose Level 130 MG/DL (74-106) H Calcium Level 7.3 MG/DL (8.5-10.1) L Phosphorus Level 7.9 MG/DL (2.5-4.9) H Magnesium Level 2.6 MG/DL (1.8-2.4) H Total Bilirubin 0.5 MG/DL (0.2-1.0) Aspartate Amino Transf (AST/SGOT) 62 U/L (15-37) H Alanine Aminotransferase (ALT/SGPT) 52 U/L (12-78) Alkaline Phosphatase 159 U/L (46-116) H C-Reactive Protein, Quantitative 10.7 mg/dL (0.00-0.90) H Pro-B-Type Natriuretic Peptide 19823 pg/mL (0-125) H Total Protein 6.3 G/DL (6.4-8.2) L Albumin 1.8 G/DL (3.4-5.0) L Globulin 4.5 g/dL Albumin/Globulin Ratio 0.4 (1.0-2.7) L Random Vancomycin Level 21.7 ug/mL Digoxin Level 2.2 NG/ML (0.5-2.0) H Current Medications Medications (Trade) Dose Ordered Sig/Fabrizio Route PRN Reason Start Time Stop Time Status Last Admin Dose Admin Acetaminophen (Tylenol) 650 mg Q4H PRN NG Mild Pain (Pain Scale 1-3) 09/23/20 13:30 10/23/20 13:29 09/23/20 13:42 Acetaminophen (Tylenol) 650 mg Q4H PRN NG Temp >100.5 09/23/20 13:30 10/23/20 13:29 09/26/20 08:04 Amiodarone HCl (Cordarone) 400 mg DAILY NG 10/01/20 09:00 12/24/20 21:14 10/01/20 08:58 Chlorhexidine Gluconate (Jennifer-Hex 2%) 1 applic DAILY@2000 TOPIC 09/22/20 20:00 12/21/20 19:59 09/30/20 21:50 Dextrose/Sodium Chloride 1,000 ml @ 100 mls/hr Q10H IV 09/22/20 11:00 10/22/20 10:59 10/01/20 04:00 Digoxin (Lanoxin) 0.125 mg DAILY ORAL 09/24/20 09:00 12/23/20 08:59 10/01/20 08:59 Haloperidol Lactate (Haldol) 5 mg Q6H PRN IM Agitation 09/21/20 23:45 11/05/20 23:44 Heparin Sodium (Porcine) (Heparin 5000 units/ml) 5,000 units EVERY 12 HOURS SUBQ 09/22/20 09:00 11/06/20 08:59 10/01/20 09:00 Midodrine (Pro-Amatine) 10 mg Q8HR ORAL 09/26/20 14:30 12/25/20 14:29 10/01/20 06:29 Ondansetron HCl (Zofran) 4 mg Q6H PRN IVP Nausea & Vomiting 09/21/20 23:45 10/21/20 23:44 Pantoprazole (Protonix) 40 mg Q12HR IVP 09/22/20 21:00 10/22/20 08:59 10/01/20 08:58 Polyethylene Glycol (Miralax) 17 gm DAILYPRN PRN ORAL Constipation 09/21/20 23:45 10/21/20 23:44 Vancomycin HCl ([facility] pharmacy to dose) 1 ea DAILY PRN MISC PER RX PROTOCOL 09/22/20 07:45 10/22/20 07:44 Vancomycin HCl 750 mg/Sodium Chloride 275 ml @ 183.333 mls/hr ONCE ONCE IVPB 10/01/20 18:00 10/01/20 19:29 Rosaura Aviles M.D. Oct 01, 2020 09:10
[2020-10-01 12:00] VITALS: BP 105/45
--- NOTE | 2020-10-01 13:00 | Pulmonology Progress Note ---
Subjective ROS Limited/Unobtainable: Yes Allergies: Coded Allergies: No Known Allergies (Unverified , 07/22/20) Subjective mild leukocytosis today on NRM no fevers s/p extubation 09/30 DNR/DNI status no signs of resp distress Objective Last 24 Hour Vital Signs Date Time Temp Pulse Resp B/P (MAP) Pulse Ox O2 Delivery O2 Flow Rate FiO2 10/01/20 09:00 Non-Rebreather 15.0 10/01/20 08:59 101 10/01/20 08:00 98.1 62 36 106/50 (68) 99 10/01/20 07:00 96 Non-Rebreather 15.0 100 10/01/20 04:00 97.5 102 36 104/62 (76) 100 10/01/20 00:00 97.6 97 36 109/50 (69) 96 09/30/20 21:00 Non-Rebreather 15.0 09/30/20 20:10 96 Nasal Cannula 4.0 36 09/30/20 20:00 97.6 61 37 104/48 (66) 96 09/30/20 18:00 60 35 99/50 (66) 95 09/30/20 17:20 15.0 100 09/30/20 17:00 60 38 104/52 (69) 87 09/30/20 16:00 Nasal Cannula 5.0 09/30/20 16:00 60 09/30/20 16:00 60 40 103/52 (69) 92 09/30/20 15:00 5.0 09/30/20 15:00 60 39 105/50 (68) 92 09/30/20 14:05 103/46 09/30/20 14:00 60 39 106/44 (64) 90 09/30/20 13:00 60 42 103/46 (65) 95 Intake and Output 09/30/20 10/01/20 19:00 07:00 Intake Total 1600 ml 1740 ml Output Total 205 ml 400 ml Balance 1395 ml 1340 ml Intake Free Water 160 ml 200 ml IV Total 900 ml 1000 ml Tube Feeding 540 ml 540 ml Output Urine Total 205 ml 400 ml General Appearance: no acute distress, other - bedridden poorly resposnive male HEENT: normocephalic, atraumatic, other - 100 % NRM Respiratory: rhonchi - bilaterally Cardiovascular: normal rate Abdomen: normal bowel sounds, soft, non tender Genitourinary: other - Whiting Extremities: other - trace edema BLE Neurologic: abnormal gait - bedridden , responsive - to verbal and tactile stimuli Musculoskeletal: atrophy - BLE Laboratory Tests 10/01/20 05:40: White Blood Count 12.4H, Red Blood Count 2.54L, Hemoglobin 8.1L, Hematocrit 26.6L, Mean Corpuscular Volume 105H, Mean Corpuscular Hemoglobin 31.8H, Mean Corpuscular Hemoglobin Concent 30.4L, Red Cell Distribution Width 15.8H, Platelet Count 190, Mean Platelet Volume 8.6, Neutrophils (%) (Auto) 73.4, Lymphocytes (%) (Auto) 6.6L, Monocytes (%) (Auto) 17.8H, Eosinophils (%) (Auto) 1.0, Basophils (%) (Auto) 1.3, Sodium Level 133L, Potassium Level 5.9H, Chloride Level 105, Carbon Dioxide Level 20L, Blood Urea Nitrogen 47H, Creatinine 3.0H, Estimat Glomerular Filtration Rate 20.6, Glucose Level 130H, Calcium Level 7.3L, Phosphorus Level 7.9H, Magnesium Level 2.6H, Total Bilirubin 0.5, Aspartate Amino Transf (AST/SGOT) 62H, Alanine Aminotransferase (ALT/SGPT) 52, Alkaline Phosphatase 159H, C-Reactive Protein, Quantitative 10.7H, Pro-B-Type Natriuretic Peptide [id number], Total Protein 6.3L, Albumin 1.8L, Globulin 4.5, Albumin/Globulin Ratio 0.4L, Random Vancomycin Level 21.7, Digoxin Level 2.2H Current Medications Medications (Trade) Dose Ordered Sig/Fabrizio Route PRN Reason Start Time Stop Time Status Last Admin Dose Admin Acetaminophen (Tylenol) 650 mg Q4H PRN NG Mild Pain (Pain Scale 1-3) 09/23/20 13:30 10/23/20 13:29 09/23/20 13:42 Acetaminophen (Tylenol) 650 mg Q4H PRN NG Temp >100.5 09/23/20 13:30 10/23/20 13:29 09/26/20 08:04 Amiodarone HCl (Cordarone) 400 mg DAILY NG 10/01/20 09:00 12/24/20 21:14 10/01/20 08:58 Chlorhexidine Gluconate (Jennifer-Hex 2%) 1 applic DAILY@2000 TOPIC 09/22/20 20:00 12/21/20 19:59 09/30/20 21:50 Dextrose/Sodium Chloride 1,000 ml @ 100 mls/hr Q10H IV 09/22/20 11:00 10/22/20 10:59 10/01/20 04:00 Digoxin (Lanoxin) 0.125 mg DAILY ORAL 09/24/20 09:00 12/23/20 08:59 10/01/20 08:59 Haloperidol Lactate (Haldol) 5 mg Q6H PRN IM Agitation 09/21/20 23:45 11/05/20 23:44 Heparin Sodium (Porcine) (Heparin 5000 units/ml) 5,000 units EVERY 12 HOURS SUBQ 09/22/20 09:00 11/06/20 08:59 10/01/20 09:00 Midodrine (Pro-Amatine) 10 mg Q8HR ORAL 09/26/20 14:30 12/25/20 14:29 10/01/20 06:29 Ondansetron HCl (Zofran) 4 mg Q6H PRN IVP Nausea & Vomiting 09/21/20 23:45 10/21/20 23:44 Pantoprazole (Protonix) 40 mg Q12HR IVP 09/22/20 21:00 10/22/20 08:59 10/01/20 08:58 Polyethylene Glycol (Miralax) 17 gm DAILYPRN PRN ORAL Constipation 09/21/20 23:45 10/21/20 23:44 Vancomycin HCl (Vanco pharmacy to dose) 1 ea DAILY PRN MISC PER RX PROTOCOL 09/22/20 07:45 10/22/20 07:44 Vancomycin HCl 750 mg/Sodium Chloride 275 ml @ 183.333 mls/hr ONCE ONCE IVPB 10/01/20 18:00 10/01/20 19:29 Assessment/Plan Assessment/Plan ASSESSMENT Septic shock Status post cardiopulmonary arrest 09/21 Acute hypoxemic respiratory failure requiring intubation 09/21 , status post extubation 09/30 MRSA bacteremia Aspiration pneumonia Multiorgan failure Acute renal failure on CKD Atrial fibrillation with rapid ventricular response NSTEMI ( likely due to renal failure and septic shock) Hypernatremia Severe azotemia E. coli UTI Sick sinus syndrome , status post pacemaker placement 08/27/2020 Ventricular tachycardia PLAN OF CARE MS floor extubated 09/30 on NRM titrate O2 to keep sat above 92% if able pulmonary toilet both COVID-19 by PCR and rapid negative strict aspiration precaution last CXR with slight worsening of right-sided infiltrate and stable infiltrates on the left DVT prophylaxis Echo with pEF to the extent visualized ,mild LVH NSTEMI likely due to renal failure and septic shock s/p pressors currently on midodrine monitor volumes and hemodynamic status rate control with amiodarone and digoxin digoxin level therapeutic creat trended down from 5 to 3.0 avoid nephrotoxic replace electrolytes as needed fup with further nephro recs continue IV fluids abx as per ID BCX + MRSA repeated BCX 09/23 and 09/25 NGT unable to do CHANDLER given blood culture with MRSA, ID specialist advised to keep empiric 6 weeks RX for presumed endocarditis however if patient becomes comfort care => no need for further antibiotics. wound care for pressure injuries POA as per surgery recommendation supportive care overall prognosis poor Aida Howard NP Oct 01, 2020 13:00 Kalpesh Toth MD Oct 01, 2020 20:41
--- NOTE | 2020-10-01 13:40 | Surgery Progress Note ---
Surgery Progress Note Subjective Additional Comments respiratory decline prognosis guarded labs noted exam stable but respiratory declining Objective Last 24 Hour Vital Signs Date Time Temp Pulse Resp B/P (MAP) Pulse Ox O2 Delivery O2 Flow Rate FiO2 10/01/20 12:00 98.7 61 36 105/45 (65) 94 10/01/20 09:00 Non-Rebreather 15.0 10/01/20 08:59 101 10/01/20 08:00 98.1 62 36 106/50 (68) 99 10/01/20 07:00 96 Non-Rebreather 15.0 100 10/01/20 04:00 97.5 102 36 104/62 (76) 100 10/01/20 00:00 97.6 97 36 109/50 (69) 96 09/30/20 21:00 Non-Rebreather 15.0 09/30/20 20:10 96 Nasal Cannula 4.0 36 09/30/20 20:00 97.6 61 37 104/48 (66) 96 09/30/20 18:00 60 35 99/50 (66) 95 09/30/20 17:20 15.0 100 09/30/20 17:00 60 38 104/52 (69) 87 09/30/20 16:00 Nasal Cannula 5.0 09/30/20 16:00 60 09/30/20 16:00 60 40 103/52 (69) 92 09/30/20 15:00 5.0 09/30/20 15:00 60 39 105/50 (68) 92 09/30/20 14:05 103/46 09/30/20 14:00 60 39 106/44 (64) 90 I&O Intake and Output 09/30/20 10/01/20 19:00 07:00 Intake Total 1600 ml 1740 ml Output Total 205 ml 400 ml Balance 1395 ml 1340 ml Intake Free Water 160 ml 200 ml IV Total 900 ml 1000 ml Tube Feeding 540 ml 540 ml Output Urine Total 205 ml 400 ml Dressing: saturated Cardiovascular: RSR Respiratory: decreased breath sounds, other Abdomen: soft, non-tender - d, decreased bowel sounds Extremities: no tenderness, no cyanosis Laboratory Tests Test 10/01/20 05:40 White Blood Count 12.4 K/UL (4.8-10.8) H Red Blood Count 2.54 M/UL (4.70-6.10) L Hemoglobin 8.1 G/DL (14.2-18.0) L Hematocrit 26.6 % (42.0-52.0) L Mean Corpuscular Volume 105 FL (80-99) H Mean Corpuscular Hemoglobin 31.8 PG (27.0-31.0) H Mean Corpuscular Hemoglobin Concent 30.4 G/DL (32.0-36.0) L Red Cell Distribution Width 15.8 % (11.6-14.8) H Platelet Count 190 K/UL (150-450) Mean Platelet Volume 8.6 FL (6.5-10.1) Neutrophils (%) (Auto) 73.4 % (45.0-75.0) Lymphocytes (%) (Auto) 6.6 % (20.0-45.0) L Monocytes (%) (Auto) 17.8 % (1.0-10.0) H Eosinophils (%) (Auto) 1.0 % (0.0-3.0) Basophils (%) (Auto) 1.3 % (0.0-2.0) Sodium Level 133 MMOL/L (136-145) L Potassium Level 5.9 MMOL/L (3.5-5.1) H Chloride Level 105 MMOL/L (98-107) Carbon Dioxide Level 20 MMOL/L (21-32) L Blood Urea Nitrogen 47 mg/dL (7-18) H Creatinine 3.0 MG/DL (0.55-1.30) H Estimat Glomerular Filtration Rate 20.6 mL/min (>60) Glucose Level 130 MG/DL (74-106) H Calcium Level 7.3 MG/DL (8.5-10.1) L Phosphorus Level 7.9 MG/DL (2.5-4.9) H Magnesium Level 2.6 MG/DL (1.8-2.4) H Total Bilirubin 0.5 MG/DL (0.2-1.0) Aspartate Amino Transf (AST/SGOT) 62 U/L (15-37) H Alanine Aminotransferase (ALT/SGPT) 52 U/L (12-78) Alkaline Phosphatase 159 U/L (46-116) H C-Reactive Protein, Quantitative 10.7 mg/dL (0.00-0.90) H Pro-B-Type Natriuretic Peptide 87940 pg/mL (0-125) H Total Protein 6.3 G/DL (6.4-8.2) L Albumin 1.8 G/DL (3.4-5.0) L Globulin 4.5 g/dL Albumin/Globulin Ratio 0.4 (1.0-2.7) L Random Vancomycin Level 21.7 ug/mL Digoxin Level 2.2 NG/ML (0.5-2.0) H Plan Problems: (1) Septic shock Assessment & Plan: anemia lactic acidosis elevated t bili / d bili imaging reviewed ill appearing weaning pressors as tolerated local care provided will follow with recs thank you declining dnr/dni prognosis guarded Pt presented on admission with multiple Pressure Injuries.Cat 3 Skin Tear pily L chest. Base of wound is moist ,viable with 100% flap loss.No exudate noted. Cat 2 Skin Tear ventral L forearm. 20% skin flap loss,80% flap in-situ. Cat 2 Skin tear dorsal L forearm with 10% flap loss,90% skin flap in situ. Sacral DTPI(L)12cm x (W)17.5cm. Base of Pressure injury maroon with scattered Purpuric areas within base of injury. Surrounding non-blanchable erythema without induration. Perianal area is erythematous. Partial Thickness Pressure injury at head of penis. Base of wound is moist and viable. Both R and L Heels are Boggy with Non-blanchable erythema. Tx.Plan: Apply Optifoam drsgs to L chest, L forearm. Change every 7 days and prn. Apply Moisture Barrier Past to sacrum. Cover with Optifoam drsg. Change every 3 days and prn. Apply Moisture Barrier Paste to penis and Perianal areas with each incontinence care. Apply Cavilon Skin Barrier to both heels. Cover each heel with Optifoam drsg. Change every 7 days and prn. Reposition at least every 2hours or as tolerated. Off-load heels with Pillow. APM/JARED Mattress. DAILY ESTIMATED NEEDS: Needs based on Critical care, wound, ARF/ 77kg abw 22-28 kcals/kg 6751-0604 total kcals 0.8-1.25 (increase w/ renal improvement) g protein/kg 61-96 g total protein 20-25 mL/kg 5532-9214 total fluid mLs NUTRITION DIAGNOSIS: Swallowing difficulty r/t respiratory failure as evidenced by orally intubated upon adm, now s/p code blue (09/22), on pressor support. 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 HOB over 30 degrees -> Monitor renal fxn and lytes, need for renal TF of Nepro Without hemodynamic stability: rec trophic feeding of Glucerna 1.2 @ 10-15ml /hr x 24 hrs ADDITIONAL RECOMMENDATIONS: * Calibrated bedscale wt * Monitor hemodynamic stability, ability to feed * Monitor renal fxn and lytes, need for renal TF formula (creat wnl last adm -> 5.2 at this time, K wnl, phos and mag low) * NISS w/ TF * Wound healing: f/up w/ WC eval, add Omar BID w/ TF (2) Multiorgan failure (3) Rapid atrial fibrillation (4) Compression fracture of L3 vertebra (5) Social isolation (6) Impaired mobility and ADLs (7) UTI (urinary tract infection) (8) Suicidal ideations (9) HTN (hypertension) (10) Failure to thrive in adult (11) Renal failure (ARF), acute on chronic (12) ANGI (acute kidney injury) (13) BPH (benign prostatic hyperplasia) (14) Schizoaffective disorder (15) Sick sinus syndrome (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 There is retrocardiac consolidation which is increased. Left upper lung, right lung and pleural space are clear. There is a left chest bifocal pacemaker. Stable satisfactory positions of endotracheal and orogastric tubes. Impression: Increased left pleural effusion and retrocardiac consolidation. Eber Slater Oct 01, 2020 13:40
--- NOTE | 2020-10-01 13:49 | Diagnostic Imaging Report ---
EXAM: XR Chest, 1 View CLINICAL HISTORY: ABN LABS TECHNIQUE: Frontal view of the chest. COMPARISON: 09/30/20 FINDINGS: Lungs: Pulmonary vascular congestion. Subsegmental atelectasis versus infiltrates in bilateral lung bases. Pleural space: Small bilateral layering pleural effusions. Heart: Cardiomegaly. Mediastinum: Unremarkable. Bones/joints: Unremarkable. Vasculature: Atherosclerotic calcifications are noted within the aortic arch. Tubes, lines and devices: Cardiac pacer in the left chest wall with the lead tips in the right atrium and right ventricle regions. NG tube extends below the diaphragm and its tip is not visualized. IMPRESSION: 1. No significant change from the prior chest x-ray. 2. Small bilateral layering pleural effusions. 3. Pulmonary vascular congestion. 4. Subsegmental atelectasis versus infiltrates in bilateral lung bases. 5. Cardiomegaly.
[2020-10-01] MEDS ORDERED: Sodium Polystyrene Sulfonate 15gm Powder NG SCH (14:15)
--- NOTE | 2020-10-01 14:45 | Cardiac Electrophysiology PN ---
Assessment/Plan Assessment/Plan 1. Atrial fib with RVR and Episode of pulseless electrical activity after ventricular tachycardia. On Amio 400 po daily, Dig 0.125 po daily. Dig level is 1.0. 2. NSTEMI could be due to renal failure as well as septic shock. 3. Septic and hypovolemic shock. On iv fluid and Abx. On Midodrine 10 tid 4. S/P Respiratory failure, extubated 5. Severe azotemia with sodium of 170 and very high BUN and creatinine. Cr down to 3.[address] Mata. 6. DNR/DNI DW RN Subjective Subjective In ICU extubated 09/29 and off Levo and on Midodrine 10 tid. DNR and DNI on NRB FM HR 90s in atrial fib on Amiodarone 400 po bid Objective Last 24 Hour Vital Signs Date Time Temp Pulse Resp B/P (MAP) Pulse Ox O2 Delivery O2 Flow Rate FiO2 10/01/20 12:00 98.7 61 36 105/45 (65) 94 10/01/20 09:00 Non-Rebreather 15.0 10/01/20 08:59 101 10/01/20 08:00 98.1 62 36 106/50 (68) 99 10/01/20 07:00 96 Non-Rebreather 15.0 100 10/01/20 04:00 97.5 102 36 104/62 (76) 100 10/01/20 00:00 97.6 97 36 109/50 (69) 96 09/30/20 21:00 Non-Rebreather 15.0 09/30/20 20:10 96 Nasal Cannula 4.0 36 09/30/20 20:00 97.6 61 37 104/48 (66) 96 09/30/20 18:00 60 35 99/50 (66) 95 09/30/20 17:20 15.0 100 09/30/20 17:00 60 38 104/52 (69) 87 09/30/20 16:00 Nasal Cannula 5.0 09/30/20 16:00 60 09/30/20 16:00 60 40 103/52 (69) 92 09/30/20 15:00 5.0 09/30/20 15:00 60 39 105/50 (68) 92 Intake and Output 09/30/20 10/01/20 19:00 07:00 Intake Total 1600 ml 1740 ml Output Total 205 ml 400 ml Balance 1395 ml 1340 ml Intake Free Water 160 ml 200 ml IV Total 900 ml 1000 ml Tube Feeding 540 ml 540 ml Output Urine Total 205 ml 400 ml Laboratory Tests Test 10/01/20 05:40 White Blood Count 12.4 K/UL (4.8-10.8) H Red Blood Count 2.54 M/UL (4.70-6.10) L Hemoglobin 8.1 G/DL (14.2-18.0) L Hematocrit 26.6 % (42.0-52.0) L Mean Corpuscular Volume 105 FL (80-99) H Mean Corpuscular Hemoglobin 31.8 PG (27.0-31.0) H Mean Corpuscular Hemoglobin Concent 30.4 G/DL (32.0-36.0) L Red Cell Distribution Width 15.8 % (11.6-14.8) H Platelet Count 190 K/UL (150-450) Mean Platelet Volume 8.6 FL (6.5-10.1) Neutrophils (%) (Auto) 73.4 % (45.0-75.0) Lymphocytes (%) (Auto) 6.6 % (20.0-45.0) L Monocytes (%) (Auto) 17.8 % (1.0-10.0) H Eosinophils (%) (Auto) 1.0 % (0.0-3.0) Basophils (%) (Auto) 1.3 % (0.0-2.0) Sodium Level 133 MMOL/L (136-145) L Potassium Level 5.9 MMOL/L (3.5-5.1) H Chloride Level 105 MMOL/L (98-107) Carbon Dioxide Level 20 MMOL/L (21-32) L Blood Urea Nitrogen 47 mg/dL (7-18) H Creatinine 3.0 MG/DL (0.55-1.30) H Estimat Glomerular Filtration Rate 20.6 mL/min (>60) Glucose Level 130 MG/DL (74-106) H Calcium Level 7.3 MG/DL (8.5-10.1) L Phosphorus Level 7.9 MG/DL (2.5-4.9) H Magnesium Level 2.6 MG/DL (1.8-2.4) H Total Bilirubin 0.5 MG/DL (0.2-1.0) Aspartate Amino Transf (AST/SGOT) 62 U/L (15-37) H Alanine Aminotransferase (ALT/SGPT) 52 U/L (12-78) Alkaline Phosphatase 159 U/L (46-116) H C-Reactive Protein, Quantitative 10.7 mg/dL (0.00-0.90) H Pro-B-Type Natriuretic Peptide 95077 pg/mL (0-125) H Total Protein 6.3 G/DL (6.4-8.2) L Albumin 1.8 G/DL (3.4-5.0) L Globulin 4.5 g/dL Albumin/Globulin Ratio 0.4 (1.0-2.7) L Random Vancomycin Level 21.7 ug/mL Digoxin Level 2.2 NG/ML (0.5-2.0) H Objective HEAD AND NECK: No JVD LUNGS: Coarse rhonchi. CARDIOVASCULAR: Irregular irregular and tachycardic S1 and S2 with no gallop. ABDOMEN: Soft. EXTREMITIES: No pitting edema. Carlos Eduardo Crespo MD Oct 01, 2020 14:45
--- NOTE | 2020-10-01 15:36 | Internal Med Progress Note ---
Subjective Date of Service: Oct 01, 2020 Physician Name Shai Zimmer Attending Physician Andrés Rothman MD Current Medications Medications (Trade) Dose Ordered Sig/Fabrizio Route PRN Reason Start Time Stop Time Status Last Admin Dose Admin Acetaminophen (Tylenol) 650 mg Q4H PRN NG Mild Pain (Pain Scale 1-3) 09/23/20 13:30 10/23/20 13:29 09/23/20 13:42 Acetaminophen (Tylenol) 650 mg Q4H PRN NG Temp >100.5 09/23/20 13:30 10/23/20 13:29 09/26/20 08:04 Amiodarone HCl (Cordarone) 400 mg DAILY NG 10/01/20 09:00 12/24/20 21:14 10/01/20 08:58 Chlorhexidine Gluconate (Jennifer-Hex 2%) 1 applic DAILY@1999 TOPIC 09/22/20 20:00 12/21/20 19:59 09/30/20 21:50 Haloperidol Lactate (Haldol) 5 mg Q6H PRN IM Agitation 09/21/20 23:45 11/05/20 23:44 Heparin Sodium (Porcine) (Heparin 5000 units/ml) 5,000 units EVERY 12 HOURS SUBQ 09/22/20 09:00 11/06/20 08:59 10/01/20 09:00 Midodrine (Pro-Amatine) 10 mg Q8HR ORAL 09/26/20 14:30 12/25/20 14:29 10/01/20 14:28 Ondansetron HCl (Zofran) 4 mg Q6H PRN IVP Nausea & Vomiting 09/21/20 23:45 10/21/20 23:44 Pantoprazole (Protonix) 40 mg Q12HR IVP 09/22/20 21:00 10/22/20 08:59 10/01/20 08:58 Polyethylene Glycol (Miralax) 17 gm DAILYPRN PRN ORAL Constipation 09/21/20 23:45 10/21/20 23:44 Sodium Polystyrene Sulfonate (Kayexalate) 30 gm ONCE NG 10/01/20 14:15 10/01/20 16:00 10/01/20 14:28 Vancomycin HCl ([facility] pharmacy to dose) 1 ea DAILY PRN MISC PER RX PROTOCOL 09/22/20 07:45 10/22/20 07:44 Vancomycin HCl 750 mg/Sodium Chloride 275 ml @ 183.333 mls/hr ONCE ONCE IVPB 10/01/20 18:00 10/01/20 19:29 Allergies: Coded Allergies: No Known Allergies (Unverified , 07/22/20) ROS Limited/Unobtainable: Yes Subjective 75 YO M admitted with shortness of breath. Now respiratory failure. Extubated 09/29/20. Cover for Int Jesús-Dr Rothman. Back on non rebreather mask Objective Last Vital Signs Date Time Temp Pulse Resp B/P (MAP) Pulse Ox O2 Delivery O2 Flow Rate FiO2 10/01/20 12:00 98.7 61 36 105/45 (65) 94 10/01/20 09:00 Non-Rebreather 15.0 10/01/20 07:00 100 Laboratory Tests Test 10/01/20 05:40 White Blood Count 12.4 K/UL (4.8-10.8) H Red Blood Count 2.54 M/UL (4.70-6.10) L Hemoglobin 8.1 G/DL (14.2-18.0) L Hematocrit 26.6 % (42.0-52.0) L Mean Corpuscular Volume 105 FL (80-99) H Mean Corpuscular Hemoglobin 31.8 PG (27.0-31.0) H Mean Corpuscular Hemoglobin Concent 30.4 G/DL (32.0-36.0) L Red Cell Distribution Width 15.8 % (11.6-14.8) H Platelet Count 190 K/UL (150-450) Mean Platelet Volume 8.6 FL (6.5-10.1) Neutrophils (%) (Auto) 73.4 % (45.0-75.0) Lymphocytes (%) (Auto) 6.6 % (20.0-45.0) L Monocytes (%) (Auto) 17.8 % (1.0-10.0) H Eosinophils (%) (Auto) 1.0 % (0.0-3.0) Basophils (%) (Auto) 1.3 % (0.0-2.0) Sodium Level 133 MMOL/L (136-145) L Potassium Level 5.9 MMOL/L (3.5-5.1) H Chloride Level 105 MMOL/L (98-107) Carbon Dioxide Level 20 MMOL/L (21-32) L Blood Urea Nitrogen 47 mg/dL (7-18) H Creatinine 3.0 MG/DL (0.55-1.30) H Estimat Glomerular Filtration Rate 20.6 mL/min (>60) Glucose Level 130 MG/DL (74-106) H Calcium Level 7.3 MG/DL (8.5-10.1) L Phosphorus Level 7.9 MG/DL (2.5-4.9) H Magnesium Level 2.6 MG/DL (1.8-2.4) H Total Bilirubin 0.5 MG/DL (0.2-1.0) Aspartate Amino Transf (AST/SGOT) 62 U/L (15-37) H Alanine Aminotransferase (ALT/SGPT) 52 U/L (12-78) Alkaline Phosphatase 159 U/L (46-116) H C-Reactive Protein, Quantitative 10.7 mg/dL (0.00-0.90) H Pro-B-Type Natriuretic Peptide 70182 pg/mL (0-125) H Total Protein 6.3 G/DL (6.4-8.2) L Albumin 1.8 G/DL (3.4-5.0) L Globulin 4.5 g/dL Albumin/Globulin Ratio 0.4 (1.0-2.7) L Random Vancomycin Level 21.7 ug/mL Digoxin Level 2.2 NG/ML (0.5-2.0) H Intake and Output 09/30/20 10/01/20 19:00 07:00 Intake Total 1600 ml 1740 ml Output Total 205 ml 400 ml Balance 1395 ml 1340 ml Intake Free Water 160 ml 200 ml IV Total 900 ml 1000 ml Tube Feeding 540 ml 540 ml Output Urine Total 205 ml 400 ml Objective Objective General: remain on ventilation, unresponsive, cannot follow commands. HEENT: NCAT, sclera anicteric, PERRL, ET Tube, OG Tube. Neck: Supple, no significant jugular venous distention, Lungs: Non rebreather mask; coarse breath sounds, decreased air at the bases, no wheezes. Heart: S1, S2, regular rate, tachycardia,, normal S1/S2, no murmurs, pacemaker at left side chest wall. Abdomen: soft, nontender, nondistended. Normoactive bowel sounds. : Whiting catheter. Extremities: No Cyanosis , clubbing or edema. Neuro: limited secondary to patient's status, unable to follow commands. Assessment/Plan Assessment/Plan Assessment/Plan Assessment/Plan ASSESSMENT: This is a 75-year-old white male with: 1. Pneumonia. 2. Acute hypoxemic Respiratory failure. 3. Septic shock. 4. Non-ST elevated myocardial infarction. 5. Hypertension. 6. Benign prostatic hypertrophy. 7. Alzheimer's dementia. 8. Depression. 9. status post cardiopulmonary arrest / PEA arrest (09/22/2020) 10. Atrial fibrillation with rapid ventricular rate. 11. Acute renal failure on chronic renal insufficiency. 12. hypernatremia. 13. Multiorgan failure. 14. Acute E. coli UTI. 15. MRSA sepsis/bacteremia. 16. NSTEMI 17. sick sinus syndrome status post a pacemaker on 08/27/2020. 18. Ventricular tachycardia. TREATMENT: 1. Pneumonia. Abx: meropenem and vancomycin. An Infectious Disease consultation has been obtained with Dr. Aviles. Follow recommendations of Infectious Disease. A Pulmonary consultation has been obtained with Dr. Jaclyn Byrne. 2. Septic shock. The patient is currently on vasopressin. 3. Non-ST elevated myocardial infarction. A Cardiology consultation has been obtained with Dr. Carlos Eduardo Crespo. Follow recommendations of Cardiology. 4. Hypertension. The patient is currently hypotensive. Hold antihypertensive medication. 5. Benign prostatic hypertrophy. Continue Flomax as above. 6. Alzheimer's dementia. 7. History of schizophrenia/depression. 8. Pacemaker in situ. tolerated tube feeding at 45 cc/hr. on Amiodarone 400 mg 3 times a day Pressors: resume Levophed Drip CODE STATUS: DNR DVT prophylaxis: heparin subcu. Shai Zimmer MD Oct 01, 2020 15:36
[2020-10-01 16:00] VITALS: BP 93/55
--- NOTE | 2020-10-01 16:26 | NUR ---
CASE MANAGEMENT: REVIEW 10/01/2020 SI:SEPSIS. VS: 98.7 HR 61 RR 36 B/P 105/45 SATS 94% ON 15L/NRB FIO2 100 LABS: WBC 12.4 NA 133 K 5.9 CO2 20 BUN 47 CR 3 CA 7.3 GLU 130 AST 62 ALP 159 IS:AMIODARONE NG QD VANCO IV QD PROTONIX IV Q12H MIDODRINE PO Q8H MED/SURG
--- NOTE | 2020-10-01 16:49 | Nephrology Progress Note ---
Assessment/Plan Problem List: (1) ANGI (acute kidney injury) (2) Septic shock (3) Hypernatremia (4) NSTEMI (non-ST elevated myocardial infarction) (5) Acute respiratory failure (6) Dehydration (7) Rhabdomyolysis Assessment Sepsis, shock Acute renal failure Acute respiratory failure Hypernatremia, dehydration Non-STEMI Plan [facility] 01: [facility]. On nonrebreather mask. Serum creatinine rising. Serum potassium elevated. Kayexalate ordered. Chest x-ray bilateral pleural effusion. Overall prognosis poor. Patient is declining. Per orders. September 30: Serum creatinine ronak from 2.1 to 2.4. Patient on vancomycin and digoxin. Patient was weaned off respiratory yesterday and currently on nasal cannula and since he is DNR/DNI is not going to be reintubated. Continue to monitor renal parameters and monitor vancomycin and digoxin level. Continue per consultants. September 29: Labs reviewed. Renal parameters improving. Abnormal electrolytes addressed. Continue per consultants. Remains intubated. September 28: No labs drawn today. Remains intubated. Continue to monitor renal parameters. Continue per consultants. September 27: Renal parameters improving. Hemodynamically stable. Continue per current treatment plan. September 26: Renal parameters improving. Midodrine added to keep the blood pressure over 95 systolic. Albumin bolus given. Waiting for vitamin D level. Continue to monitor renal parameters and electrolytes. September 25: Discussed with KRYSTYNA [place]. Off pressors. Renal parameters improving. Will cut down IV fluid and give albumin bolus. Will give high dose of vitamin D for 3 days. Will check vitamin D level. September 24: Seen in ICU. Remains intubated. Urine output improved. Serum creatinine lower. Serum CPK lower. Abnormal electrolytes addressed. Continue to monitor renal parameters. Albumin bolus given. IV rate down to 150 cc an hour. September 23: Patient intubated on ventilator. Full code. Labs reviewed. IV fluid adjusted. Abnormal electrolytes addressed. Monitor CPK for rhabdo Previously: Fluid challenge IV hydration Albumin 5% Water through NG tube Monitor renal parameters Antibiotics Urine studies Avoid nephrotoxic's Poor prognosis Patient full code Per orders Subjective ROS Limited/Unobtainable: Yes Objective Objective Last 24 Hour Vital Signs Date Time Temp Pulse Resp B/P (MAP) Pulse Ox O2 Delivery O2 Flow Rate FiO2 10/01/20 16:00 98.3 61 36 93/55 (68) 94 10/01/20 12:00 98.7 61 36 105/45 (65) 94 10/01/20 09:00 Non-Rebreather 15.0 10/01/20 08:59 101 10/01/20 08:00 98.1 62 36 106/50 (68) 99 10/01/20 07:00 96 Non-Rebreather 15.0 100 10/01/20 04:00 97.5 102 36 104/62 (76) 100 10/01/20 00:00 97.6 97 36 109/50 (69) 96 09/30/20 21:00 Non-Rebreather 15.0 09/30/20 20:10 96 Nasal Cannula 4.0 36 09/30/20 20:00 97.6 61 37 104/48 (66) 96 09/30/20 18:00 60 35 99/50 (66) 95 09/30/20 17:20 15.0 100 09/30/20 17:00 60 38 104/52 (69) 87 Intake and Output 09/30/20 10/01/20 19:00 07:00 Intake Total 1600 ml 1740 ml Output Total 205 ml 400 ml Balance 1395 ml 1340 ml Intake Free Water 160 ml 200 ml IV Total 900 ml 1000 ml Tube Feeding 540 ml 540 ml Output Urine Total 205 ml 400 ml Current Medications Medications (Trade) Dose Ordered Sig/Fabrizio Route PRN Reason Start Time Stop Time Status Last Admin Dose Admin Acetaminophen (Tylenol) 650 mg Q4H PRN NG Mild Pain (Pain Scale 1-3) 09/23/20 13:30 10/23/20 13:29 09/23/20 13:42 Acetaminophen (Tylenol) 650 mg Q4H PRN NG Temp >100.5 09/23/20 13:30 10/23/20 13:29 09/26/20 08:04 Amiodarone HCl (Cordarone) 400 mg DAILY NG 10/01/20 09:00 12/24/20 21:14 10/01/20 08:58 Chlorhexidine Gluconate (Jennifer-Hex 2%) 1 applic DAILY@1999 TOPIC 09/22/20 20:00 12/21/20 19:59 09/30/20 21:50 Haloperidol Lactate (Haldol) 5 mg Q6H PRN IM Agitation 09/21/20 23:45 11/05/20 23:44 Heparin Sodium (Porcine) (Heparin 5000 units/ml) 5,000 units EVERY 12 HOURS SUBQ 09/22/20 09:00 11/06/20 08:59 10/01/20 09:00 Midodrine (Pro-Amatine) 10 mg Q8HR ORAL 09/26/20 14:30 12/25/20 14:29 10/01/20 14:28 Ondansetron HCl (Zofran) 4 mg Q6H PRN IVP Nausea & Vomiting 09/21/20 23:45 10/21/20 23:44 Pantoprazole (Protonix) 40 mg Q12HR IVP 09/22/20 21:00 10/22/20 08:59 10/01/20 08:58 Polyethylene Glycol (Miralax) 17 gm DAILYPRN PRN ORAL Constipation 09/21/20 23:45 10/21/20 23:44 [facility]a DAILY PRN MISC PER RX PROTOCOL 09/22/20 07:45 10/22/20 07:44 Vancomycin HCl 750 mg/Sodium Chloride 275 ml @ 183.333 mls/hr ONCE ONCE IVPB 10/01/20 18:00 10/01/20 19:29 Laboratory Tests 10/01/20 05:40: White Blood Count 12.4H, Red Blood Count 2.54L, Hemoglobin 8.1L, Hematocrit 26.6L, Mean Corpuscular Volume 105H, Mean Corpuscular Hemoglobin 31.8H, Mean Corpuscular Hemoglobin Concent 30.4L, Red Cell Distribution Width 15.8H, Platelet Count 190, Mean Platelet Volume 8.6, Neutrophils (%) (Auto) 73.4, Lymphocytes (%) (Auto) 6.6L, Monocytes (%) (Auto) 17.8H, Eosinophils (%) (Auto) 1.0, Basophils (%) (Auto) 1.3, Sodium Level 133L, Potassium Level 5.9H, Chloride Level 105, Carbon Dioxide Level 20L, Blood Urea Nitrogen 47H, Creatinine 3.0H, Estimat Glomerular Filtration Rate 20.6, Glucose Level 130H, Calcium Level 7.3L, Phosphorus Level 7.9H, Magnesium Level 2.6H, Total Bilirubin 0.5, Aspartate Amino Transf (AST/SGOT) 62H, Alanine Aminotransferase (ALT/SGPT) 52, Alkaline Phosphatase 159H, C-Reactive Protein, Quantitative 10.7H, Pro-B-Type Natriuretic Peptide 93332B, Total Protein 6.3L, Albumin 1.8L, Globulin 4.5, Albumin/Globulin Ratio 0.4L, Random Vancomycin Level 21.7, Digoxin Level 2.2H Height (Feet): 5 Height (Inches): 9.00 Weight (Pounds): 190 General Appearance: lethargic EENT: other - On nonrebreather mask Cardiovascular: normal rate Respiratory/Chest: decreased breath sounds Abdomen: distended Objective No change Gelacio Mata MD Oct 01, 2020 16:49
[2020-10-01] MEDS ORDERED: Vancomycin 750mg/NS 275ml IVPB ONE ×2 (18:00)
--- NOTE | 2020-10-01 19:07 | NUR ---
NURSE HAND-OFF: Important Events on Shift:Kayaxalate given; feeding tube changed to Nepro; vancomycin given; Patient Status: Diet: Pending Orders: Pending Results/Labs: Pending MD notification: Latest Vital Signs: Temperature 98.3 , Pulse 61 , B/P 93 /55 , Respiratory Rate 36 , O2 SAT 94 , Mechanical Ventilator, O2 Flow Rate 15.0 . Vital Sign Comment: Latest Robertson Fall Score: 75 Fall Risk: High Risk Safety Measures: Call light Within Reach, Bed Alarm Zone 1, Side Rails Side Rails x2, Bed position Low and Locked. Fall Precautions: Yellow Socks Yellow Gown Door Sign Patient Fall Education Report given to .
--- NOTE | 2020-10-01 19:33 | NUR ---
NURSE NOTES: Patient in bed, unable to make needs known. Nonverbal. Iv site noted. Noted with Oral feeding, infusing. Kept clean and comfortable. Bed in low and locked position, provided safe environment. No s/s of pain or discomfort noted. On special mattress. No s/s of pain or discomfort. Respiration tachypnea, non rebreather mask. Call light is at bedside. Will continue plan of care.
--- NOTE | 2020-10-01 19:39 | NUR ---
HAND-OFF: Report given to KRYSTYNA Godinez.
[2020-10-01 20:00] VITALS: BP 88/39
[2020-10-01] MEDS ORDERED: Tubing IV Secondary IV ONE (21:39)
[2020-10-01] MEDS ORDERED: NS 275ml ONE (21:39)
--- NOTE | 2020-10-01 21:40 | NUR ---
PRONOUNCEMENT: No Code. Called to pronounce patient. Absence of spontaneous respirations, no cardiac or breath sounds on auscultation. Pupils fixed and dilated. No carotid pulse or chest movement. Patient at 2140. DR antunez notified PER claire Anne. Family was notified at .
--- NOTE | 2020-10-01 21:40 | NUR ---
NURSE NOTES: Patient .
--- NOTE | 2020-10-01 21:56 | NUR ---
NURSE NOTES: Informed Dr. Rothman that patient has .
--- NOTE | 2020-10-01 23:09 | NUR ---
NURSE NOTES: No belongings, cleaned, charge nurse aware.
--- NOTE | 2020-10-04 12:18 | Discharge Summary ---
Discharge Summary Discharge Summary _ SUMMARY DATE OF ADMISSION: 09/21/2020 DATE OF EXPIRATION: 10/01/2020 REASON FOR ADMISSION: 75 years old male, resident of intermediate facility, with past medical history of atrial fibrillation, sick sinus syndrome, status post recent pacemaker placement, chronic kidney disease, BPH, presented with shortness of breath. Patient had negative Covid test few weeks ago. Over the past 24 hours patient developed productive cough and appeared to be short of breath. Patient was hypoxic and required supplemental oxygen . upon arrival to ED he was ON nonrebreather mask , was tachypneic , hypotensive hypoxic and had severely altered mental status. Patient was emergently intubated. Central line was placed, and patient started on Levophed for hemodynamic support. Patient subsequently admitted to ICU for further management. CONSULTANTS: digital traffic coordinator Dr. Emerson pulmonary ID specialist Dr. Aviles primary special education teacher Dr. Mata surgery Dr. Slater [facility]: Patient admitted to ICU. Hemodynamic status was closely monitored. Pressors titrated to keep mean arterial blood pressure above 65. Patient was on IV hydration. Patient pancultured and started on broad-spectrum antibiotic. Antibiotic provided as per ID specialist recommendation. Ventilator support and pulmonary toilet provided. Patient was follow-up with chest x-rays and ABGs. Rapid COVID-19 in the emergency department was negative. Blood culture revealed MRSA. Urine culture revealed E. coli. Sputum culture revealed Staph aureus. Repeated COVID-19 by PCR was negative as well. Repeated blood culture 09/23 and 09/25 were negative. Given blood culture with MRSA , ID specialist advised to continue with empiric 6 weeks treatment for presumed endocarditis. However if patient becomes comfort care, no need for further antibiotics. Volumes were closely monitored along with hemodynamic status. Patient was able to be weaned from pressors Patient was on intravenous fluids and midodrine. Patient also noted to be atrial in atrial fibrillation with rapid ventricular response along with episode of pulseless electrical activity after ventricular tachycardia. Patient provided with digoxin and amiodarone. Digoxin level was therapeutic. DVT prophylaxis provided. Strict aspiration precaution maintained. Renal parameters and electrolytes were closely monitored. Electrolytes corrected as needed. Nephrotoxic's were avoided. Creatinine trended down from 5 to 3.0. IV fluids continued. Wound care for pressure injury present on admission, provided as per surgery recommendations. CODE STATUS was changed to DNR/DNI on 09/26. Patient was extubated on 09/29. Supplemental oxygen provided and titrated to keep pulse oximetry above 92%. Prognosis remained grave. Patient condition was deteriorating. He was pronounced at 21: 40 on 10/01 Cause of : cardiopulmonary arrest FINAL DIAGNOSES: Septic shock Status post cardiopulmonary arrest Acute hypoxemic respiratory failure requiring intubation 09/21, status post extubation 09/29 MRSA bacteremia Aspiration pneumonia Multiorgan failure Acute renal failure on early kidney disease Atrial fibrillation with rapid ventricular response Non-STEMI, likely due to renal failure septic shock Hyponatremia E. coli UTI Sick sinus syndrome , status post pacemaker placement 08/27/2020 Ventricular tachycardia I have been assigned to dictate discharge summary for this account. Aida Howard NP Oct 04, 2020 12:18
--- NOTE | 2020-10-06 02:13 | Cardiology Report ---
APPROVED REPORT EKG Measurement Heart [id number] <Conclusion> Sinus rhythm Rightward axis ST & T wave abnormality, consider inferior ischemia Prolonged QT Abnormal ECG
--- NOTE | 2020-10-06 02:15 | Cardiology Report ---
APPROVED REPORT EKG Measurement Heart [id number] <Conclusion> Accelerated Junctional rhythm Low voltage QRS Nonspecific ST abnormality Abnormal QRS-T angle, consider primary T wave abnormality Prolonged QT Abnormal ECG
--- NOTE | 2020-10-06 02:24 | Cardiology Report ---
APPROVED REPORT EXAM: Two-dimensional and M-mode echocardiogram with Doppler and color Doppler. INDICATION Left ventricular function M-Mode DIMENSIONS IVSd1.2 (0.7-1.1cm)Left Atrium (MM)3.5 (1.6-4.0cm) LVDd4.3 (3.5-5.6cm)Aortic Root4.2 (2.0-3.7cm) PWd1.5 (0.7-1.1cm)Aortic Cusp Exc.2.1 (1.5-2.0cm) IVSs1.7 cmEPSS0.5 (>1.0cm) LVDs3.0 (2.5-4.0cm) PWs1.7 cm <Conclusion> Technically limited and difficult study due to poor acoustical windows, pt's ventilator . Normal left ventricular chamber size, systolic function to extent visualized. This study precludes full analysis of LV wall motion. Left ventricular ejection fraction estimated to be grossly normal. Mild left ventricular hypertrophy. Anterior Echo-free space, may be due to pericardial fat or effusion. All other cardiac chamber sizes are within normal limits. Focal aortic valve sclerosis with adequate cusp excursion. Thickened mitral valve leaflets with normal excursion. Mitral annulus and aortic root calcification. Pulmonic valve is not obtainble. Normal tricuspid valve structure. IVC at normal size with physiologic collapse. A color flow and spectral Doppler study was performed and revealed: Trace aortic regurgitation. Mitral diastolic velocities of E & A equalization & Tissue Doppler Imaging suggest mildly reduced left ventricular relaxation c/w impaired relaxation diastolic dysfunction. Trace mitral regurgitation. Trace tricuspid regurgitation. Tricuspid systolic velocities suggests peak right ventricular systolic pressure of 10 mmHg.
== END 2020-10-01 21:40 | disposition expired | DRG 870 ==
LOC: EDBD 20:15 → EMR 20:21 → ICU 21:11 → EDBEDREQ 09-22 05:43 → 4E 09-30 18:02
PROC: 5A1955Z Respiratory Ventilation, Greater than 96 Consecutive Hours (ICD-10-PCS; principal; 2020-09-21)
PROC: 06HN33Z Insertion of Infusion Device into Left Femoral Vein, Percutaneous Approach (ICD-10-PCS; principal; 2020-09-21)
PROC: 0BH17EZ Insertion of Endotracheal Airway into Trachea, Via Natural or Artificial Opening (ICD-10-PCS; principal; 2020-09-21)
DX: A41.02 Sepsis due to Methicillin resistant Staphylococcus aureus (principal); J69.0 Pneumonitis due to inhalation of food and vomit; R65.21 Severe sepsis with septic shock; J96.01 Acute respiratory failure with hypoxia; I21.4 Non-ST elevation (NSTEMI) myocardial infarction; N17.9 Acute kidney failure, unspecified; E87.0 Hyperosmolality and hypernatremia; I47.2 Ventricular tachycardia; N39.0 Urinary tract infection, site not specified; M62.82 Rhabdomyolysis; I12.9 Hypertensive chronic kidney disease with stage 1 through stage 4 chronic kidney disease, or unspecified chronic kidney disease; N18.9 Chronic kidney disease, unspecified; Z95.0 Presence of cardiac pacemaker; I49.5 Sick sinus syndrome; N40.0 Benign prostatic hyperplasia without lower urinary tract symptoms; G30.9 Alzheimer's disease, unspecified; F02.80 Dementia in other diseases classified elsewhere, unspecified severity, without behavioral disturbance, psychotic disturbance, mood disturbance, and anxiety; F25.9 Schizoaffective disorder, unspecified; F32.9 Major depressive disorder, single episode, unspecified; D72.810 Lymphocytopenia; I48.91 Unspecified atrial fibrillation; B96.20 Unspecified Escherichia coli [E. coli] as the cause of diseases classified elsewhere; E86.0 Dehydration; Z20.822 Contact with and (suspected) exposure to COVID-19
CPT/HCPCS: 31500; 36415; 70450; 71045; 71250; 74018; 76700; 80053; 80061; 80162; 80202; 81003; 82150; 82248; 82306; 82550; 82553; 82728; 82803; 82977; 83605; 83615; 83690; 83735; 83880; 84100; 84443; 84478; 84484; 84550; 85007; 85025; 85379; 85610; 85651; 85730; 86140; 87040; 87070; 87081; 87086; 87181; 87205; 89050; 93005; 93306; 93970; 94002; 94003; 96361; 96365; 96367; 99291; J2370; J7030; J8499; U0002